=== PATIENT | male | born 1950 | race Caucasian/White ===

== ENCOUNTER 2021-01-17 13:05 | Inpatient (IN) ==
[2021-01-17 14:51] LABS: Basophils # (auto) 0.05 K/uL (0-0.2); Basophils % (auto) 0.5 %; Eosinophils # (auto) 0.11 K/uL (0-0.5); Eosinophils % (auto) 1.1 %; Hemoglobin 15.9 g/dL (14.0-18.0); Immature Granulocytes # (auto) 0.02 K/uL (0.00-0.02); Immature Granulocytes % (auto) 0.2 %; Lymphocytes # (auto) 2.12 K/uL (1.2-3.4); Lymphocytes % (auto) 20.7 %; Mean Corpuscular Hemoglobin 31.2 pg (25-34); Mean Corpuscular Hgb Conc 36.1 g/dL (32-36); Mean Corpuscular Volume 86.4 fL (80-100); Mean Platelet Volume 11.2 fL (7.4-10.4); Monocytes # (auto) 0.74 K/uL (0.11-0.59); Monocytes % (auto) 7.2 %; Neutrophils # (auto) 7.21 K/uL (1.4-6.5); Neutrophils % (auto) 70.3 %; Platelet Count 236 K/uL (130-400); RDW Coefficient of Variation 12.2 % (11.5-14.5); RDW Standard Deviation 38.9 fL (36.4-46.3); Red Blood Count 5.09 M/uL (4.7-6.1); White Blood Count 10.25 K/uL (4.8-10.8)
[2021-01-17 14:59] LABS: BUN Creatinine Ratio 19.7 (10-20); Blood Urea Nitrogen 21 mg/dl (7-18); Calcium 9.2 mg/dl (8.5-10.1); Carbon Dioxide 26 mmol/L (21-32); Chloride 105 mmol/L (98-107); Creatinine Clr Calc Pharmacy 82.3 ml/min; Est GFR (African American) 80.7; Est GFR (Non-African American) 69.7; Glucose 146 mg/dl (70-99); Potassium 4.3 mmol/L (3.5-5.1); Sodium 137 mmol/L (136-145)
--- NOTE | 2021-01-17 15:05 | XRay Report ---
XR pelvis 1-2V routine CLINICAL HISTORY: back pain hip pain COMPARISON STUDY: Left hip 04/29/2011. FINDINGS: No fracture or dislocation within the pelvis or hips. The visualized sacrum appears intact. There are bilateral total hip arthroplasties. The hardware is intact. No abnormal periprosthetic sayra ency. Small amount of heterotopic ossification surrounding the inferior aspect of the left hip. IMPRESSION: No fracture or dislocation within the pelvis or hips. ACT 112: Negative or not required by law. Electronically signed by: Kristopher Cohen M.D. 01/17/2021 3:04 PM
[2021-01-17 15:09] LABS: Partial Thromboplastin Ratio 0.9; Partial Thromboplastin Time 22.8 Seconds (21.0-31.0)
[2021-01-17] MEDS ORDERED: LORazepam 1 MG/2 ML VIAL IV STA (15:18)
[2021-01-17] MEDS ORDERED: HYDROmorphone INJ 0.5 MG/0.5 ML SYR IV STA (16:09)
--- NOTE | 2021-01-17 16:59 | Magnetic Resonance Report ---
LUMBAR SPINE MRI HISTORY: Bilateral lower extremity radiculopathy. Low back pain. Twisting injury. TECHNIQUE: Multiplanar multisequence MRI of the lumbar spine was performed without the use of contras t. COMPARISON: Lumbar spine MRI 10/21/2018. FINDINGS: For the purpose of the report the L5-S1 disc space will be located on axial image 27 of 30. Mild motion artifact. No fracture or subluxation within the lumbar spine. The conus terminates at the L2-L3 disc space level. There are severe disc space narrowing at L5-S1 which has slightly progressed . Stable 13 mm hemangioma at S1. Remaining disc spaces are preserved for age. Severe facet degenerati ve changes at L4-L5 and L3-L4. Mild facet degenerative changes seen throughout the remaining lumbar s pine. L1-L2: Small broad-based posterior disc bulge without significant central canal or neural foraminal n arrowing. L2-L3: Small broad-based posterior disc bulge without significant central canal or neural foraminal n arrowing. L3-L4: Broad-based posterior disc bulge with ligamentum and facet hypertrophy resulting in moderate c entral canal narrowing and mild to moderate bilateral neural foraminal narrowing. This has slightly p rogressed in the interval. L4-L5: Interval development of a large central disc extrusion measuring 16 x 11 x 11 mm. This complet umesh replaces the thecal sac and results in severe central canal narrowing with compression of the cau da equina at this level. Clinical correlation recommended to assess for a cauda equina syndrome. Ther e is mild to moderate bilateral neural foraminal narrowing. L5-S1: No significant central canal narrowing. There is moderate left and mild right neural foraminal narrowing. IMPRESSION: 1. Interval development of a large central disc extrusion at L4-L5 which completely replaces the thec al sac and results in severe central canal narrowing with compression of the cauda equina at this lev el. Clinical question recommended to assess for a cauda equina syndrome. Immediate surgical consultat ion recommended. 2. Additional degenerative changes as described above. 3. No fracture or subluxation within the lumbar spine. 4. Low-lying conus which terminates at the L2-L3 disc space level. ACT 112: Negative or not required by law. Electronically signed by: Kristopher Cohen M.D. 01/17/2021 4:57 PM
[2021-01-17] MEDS ORDERED: HYDROmorphone INJ 1 MG/ML SYRINGE IV STA ×2 (17:23→21:02)
--- NOTE | 2021-01-17 17:31 | Emergency Department Note ---
History of Present Illness General Chief Complaint: Leg Injury/Pain Stated Complaint: Leg Pain Time Seen by Provider: 01/17/21 14:06 History of Present Illness Provider Complaint: back pain Onset (ago): day(s) 5 Duration: progressively worsening Similar Symptoms Previously: No Location: lumbar spine Quality: + sharp, + crushing, + aching, + spasming and + throbbing Radiation: left leg and right leg Severity: severe Current Pain Intensity: 9 Relieved By: + immobilization Exacerbated By: + movement Context: + while lifting; no trauma and no IV drug use Associated symptoms: + numbness and + difficulty walking; no loss of sensation in lower extremities, no increased urinary urgency, no increased urinary frequency, no urinary incontinence, no fecal incontinence, no a change in bowel habits, no fever, no chills, no abdominal pain, no dysuria, no hematuria, no parasthesias and no myalgias Home Medications Medication Instructions Recorded Confirmed Type aspirin 81 mg tablet,delayed 81 mg PO DAILY 09/02/18 01/17/21 History release glucosamine 750 [id number] 1 tab PO BID 10/22/18 01/17/21 History no1 644 mg-C 30 mg-fabio 1 mg tablet ibuprofen 600 mg tablet 600 mg PO TID PRN 10/22/18 01/17/21 History atorvastatin 40 mg tablet 40 mg PO DAILY #90 tab 04/22/20 01/17/21 Rx allopurinol 300 mg tablet 300 mg PO DAILY #90 tab 07/26/20 01/17/21 Rx omeprazole 20 mg capsule,delayed 20 mg PO BID #180 cap 07/27/20 01/17/21 Rx release fluticasone propionate 50 2 spray INTNAS DAILY PRN ml 08/15/20 01/17/21 History mcg/actuation nasal spray,suspension levothyroxine 100 mcg tablet See Rx Instructions .ROUTE 10/14/20 01/17/21 Rx .COMPLEX #90 tab famotidine 40 mg tablet 40 mg PO HS #90 tab 11/15/20 01/17/21 Rx glimepiride 2 mg tablet 2 mg PO DAILY #30 tab 11/15/20 01/17/21 Rx naproxen sodium 220 mg tablet 220 mg PO BID tab 11/15/20 01/17/21 History metformin 1,000 mg tablet 1,000 mg PO BID #180 tab 01/10/21 01/17/21 Rx cetirizine 10 mg PO QAM 01/17/21 01/17/21 History gabapentin 300 mg PO AMPM 01/17/21 01/17/21 History Allergies Allergy/AdvReac Type Severity Reaction Status Date / Time Penicillins Allergy Intermediate HIGH Verified 01/17/21 14:18 FEVER, RASH (NOTED ALLERGIC TO "ANY-CILLIN" bee pollen Allergy Unknown Verified 01/17/21 14:18 Past Med/Surg History Medical History (Updated 01/17/21 @ 19:47 by Eddie Mauro) Allergic rhinitis Diabetes Dyslipidemia (high LDL; low HDL) GERD (gastroesophageal reflux disease) Gout Hx of testicular cancer Hypertension Hypothyroidism Lumbar disc disease Lumbar pain with radiation down both legs Osteoarthritis Spinal stenosis, lumbar region with neurogenic claudication Surgical History Hx of lumbosacral spine surgery Hx of total hip arthroplasty S/P orchiopexy 1975 Family History Father Lung cancer Cancer brain Mother Diabetes Uncle Prostate cancer Grandmother (Paternal) Stroke Family/Other Colorectal cancer Breast cancer Myocardial infarction Grandfather (Maternal) Rheumatoid arthritis Denies family history of Ovarian cancer Social History Smoking Status: Former smoker Age Quit Using Tobacco: 65; packs per day: 0.5; Years Smoked: 24; Hx Alcohol Use: Yes Alcohol Intake Frequency: Monthly or Less Hx Substance Use: No Preferred Language: Telugu Communication Ability: Effective Visual Impairment: No Limitations Hearing Ability: Normal Beliefs That Will Affect Care: None marital status: Current Living Situation: Spouse current occupational status: retired Feels Safe at Home: Yes Childhood Exposure to Second-Hand Smoke: No Diet Comment: eats what he wants to caffeine: Yes during the past year weight has: decreased > 10 lbs Dental Care, Regularly: No Physical Activity Frequency: Other Physical Activity Frequency Comment: house chores Seatbelt Use: never Sunscreen Use: No Review of Systems A total of 10 systems reviewed and were otherwise negative Physical Exam Vital Signs Vital Signs - 24 hr 01/17/21 13:12 01/17/21 13:13 01/17/21 13:15 Temperature 36.5 C Temperature Source Oral Pulse Rate 103 H 105 H 107 H Pulse Rate [Apical] 107 H Pulse Rate from SpO2 Sensor 103 H 105 H Respiratory Rate 14 24 20 Respiratory Effort / Characteristics Non-Labored Spontaneous Respiratory Depth Normal Respiratory Pattern Regular Blood Pressure 158/126 H 189/110 H Blood Pressure [Right Arm] 189/110 H Blood Pressure Mean 136 136 Blood Pressure Mean [Right Arm] 136 Pulse Oximetry 94 93 94 Oxygen Delivery Method Room Air Oxygen Flow Rate Sepsis Recent Fever Within 48 Hours No Sepsis New/Unexplained Change in Mental Status No Sepsis Action Taken by Nursing No Action Required 01/17/21 13:30 01/17/21 13:31 01/17/21 14:00 Temperature Temperature Source Pulse Rate 106 H 105 H 102 H Pulse Rate [Apical] Pulse Rate from SpO2 Sensor 110 H 105 H 102 H Respiratory Rate 16 20 19 Respiratory Effort / Characteristics Respiratory Depth Respiratory Pattern Blood Pressure 168/145 H 131/99 Blood Pressure [Right Arm] Blood Pressure Mean 152 109 Blood Pressure Mean [Right Arm] Pulse Oximetry 94 97 91 Oxygen Delivery Method Oxygen Flow Rate Sepsis Recent Fever Within 48 Hours Sepsis New/Unexplained Change in Mental Status Sepsis Action Taken by Nursing 01/17/21 14:01 01/17/21 14:30 01/17/21 14:31 Temperature Temperature Source Pulse Rate 103 H 103 H 102 H Pulse Rate [Apical] Pulse Rate from SpO2 Sensor 103 H 103 H 103 H Respiratory Rate 16 21 19 Respiratory Effort / Characteristics Respiratory Depth Respiratory Pattern Blood Pressure 138/62 Blood Pressure [Right Arm] Blood Pressure Mean 87 Blood Pressure Mean [Right Arm] Pulse Oximetry 92 94 92 Oxygen Delivery Method Oxygen Flow Rate Sepsis Recent Fever Within 48 Hours Sepsis New/Unexplained Change in Mental Status Sepsis Action Taken by Nursing 01/17/21 15:00 01/17/21 15:01 01/17/21 15:02 Temperature Temperature Source Pulse Rate 105 H 104 H 104 H Pulse Rate [Apical] Pulse Rate from SpO2 Sensor 103 H 105 H 104 H Respiratory Rate 15 13 17 Respiratory Effort / Characteristics Respiratory Depth Respiratory Pattern Blood Pressure 151/95 H 151/95 H Blood Pressure [Right Arm] Blood Pressure Mean 113 113 Blood Pressure Mean [Right Arm] Pulse Oximetry 95 100 98 Oxygen Delivery Method Nasal Cannula Nasal Cannula Oxygen Flow Rate 2 2 Sepsis Recent Fever Within 48 Hours Sepsis New/Unexplained Change in Mental Status Sepsis Action Taken by Nursing 01/17/21 16:55 01/17/21 16:56 01/17/21 17:00 Temperature Temperature Source Pulse Rate Pulse Rate [Apical] Pulse Rate from SpO2 Sensor 121 H 120 H Respiratory Rate Respiratory Effort / Characteristics Respiratory Depth Respiratory Pattern Blood Pressure 125/88 145/101 H Blood Pressure [Right Arm] Blood Pressure Mean 100 115 Blood Pressure Mean [Right Arm] Pulse Oximetry 93 94 Oxygen Delivery Method Oxygen Flow Rate Sepsis Recent Fever Within 48 Hours Sepsis New/Unexplained Change in Mental Status Sepsis Action Taken by Nursing 01/17/21 17:01 01/17/21 17:06 01/17/21 17:30 Temperature Temperature Source Pulse Rate 119 H 115 H Pulse Rate [Apical] 116 H Pulse Rate from SpO2 Sensor 119 H 114 H Respiratory Rate 20 20 21 Respiratory Effort / Characteristics Respiratory Depth Respiratory Pattern Blood Pressure 160/99 H Blood Pressure [Right Arm] 125/88 Blood Pressure Mean 119 Blood Pressure Mean [Right Arm] 100 Pulse Oximetry 94 92 93 Oxygen Delivery Method Room Air Nasal Cannula Oxygen Flow Rate 2 Sepsis Recent Fever Within 48 Hours Sepsis New/Unexplained Change in Mental Status Sepsis Action Taken by Nursing 01/17/21 17:31 01/17/21 18:00 01/17/21 18:01 Temperature Temperature Source Pulse Rate 113 H 112 H 113 H Pulse Rate [Apical] Pulse Rate from SpO2 Sensor 114 H 115 H 113 H Respiratory Rate 14 20 24 Respiratory Effort / Characteristics Respiratory Depth Respiratory Pattern Blood Pressure 150/102 H Blood Pressure [Right Arm] Blood Pressure Mean 118 Blood Pressure Mean [Right Arm] Pulse Oximetry 92 95 93 Oxygen Delivery Method Nasal Cannula Nasal Cannula Nasal Cannula Oxygen Flow Rate 2 2 2 Sepsis Recent Fever Within 48 Hours Sepsis New/Unexplained Change in Mental Status Sepsis Action Taken by Nursing 01/17/21 18:30 01/17/21 18:31 Temperature Temperature Source Pulse Rate 115 H 116 H Pulse Rate [Apical] Pulse Rate from SpO2 Sensor Respiratory Rate 17 21 Respiratory Effort / Characteristics Respiratory Depth Respiratory Pattern Blood Pressure 164/108 H Blood Pressure [Right Arm] Blood Pressure Mean 126 Blood Pressure Mean [Right Arm] Pulse Oximetry 93 Oxygen Delivery Method Oxygen Flow Rate Sepsis Recent Fever Within 48 Hours Sepsis New/Unexplained Change in Mental Status Sepsis Action Taken by Nursing Physical Exam HENT: Exam performed. - Head: Normocephalic and atraumatic. - Right Ear: External ear normal. No mastoid tenderness. - Left Ear: External ear normal. No mastoid tenderness. - Mouth/Throat: The oropharynx is clear and moist. No trismus in the jaw. No dental abscesses or uvula swelling. No oropharyngeal exudate or tonsillar abscesses. EYES: Conjunctivae and EOM are normal. Pupils are equal, round, and reactive to light. Right eye exhibits no discharge. Left eye exhibits no discharge. No scleral icterus. NECK: Normal range of motion. Neck supple. No JVD present. No spinous process tenderness present. No carotid bruit present. No rigidity. No tracheal deviation and normal range of motion present. No Brudzinski's sign and no Kernig's sign noted. CV: Normal rate, regular rhythm, normal heart sounds and intact distal pulses. There is no peripheral edema. Palpable radial pulses bue. PULM/CHEST: Effort normal and breath sounds normal. No respiratory distress. No stridor. He has no wheezes. He has no rales. - Chest Wall: He exhibits no tenderness. ABD: The abdomen is soft. Bowel sounds are normal. He has no distension. No mass is present. There is no tenderness. There is no rebound, no guarding, no Bernard's sign and no tenderness at McBurney's point. Rovsig negative. MUSC/SKEL: Normal range of motion. There is no peripheral edema, tenderness or deformity. LYMPH: No cervical adenopathy. NEURO: He is alert and oriented to person, place, and time. No cranial nerve deficit deficit.GCS eye subscore is 4. GCS verbal subscore is 5. GCS motor subscore is 6. Mild left-sided saddle paresthesias. SKIN: Skin is warm and dry. He is not diaphoretic. PSYCH: He has a normal mood and affect. Behavior is normal. Judgment and thought content normal. Course Course 1406: The patient was evaluated in room B9. A complete history and physical exam was performed Cardiac monitoring: An order was placed for continuous cardiac monitoring. The monitor shows a rate of 110 with sinus tachycardia rhythm EMR reviewed. Patient had an MRI of the lumbar spine done in September 2018 which showed moderate to severe spinal canal stenosis at L4-L5 with findings suggestive cauda equina impingement. Patient states he did not have any surgery done in 2019 on his back. Patient states his last back surgery was done in 2001 in [place]. We will obtain MRI of the spine given his difficulty walking and the mild left-sided saddle paresthesias. 1730: MRI showed interval development of a large central disc extrusion at L4-L5 which completely replaces the thecal sac resulting in canal narrowing and compression of the cauda equina. Dr. Tomeka patel. Nursing reported that the patient was incontinent of urine on his way back from MRI. Patient did have good rectal tone. 173: Dr. Eckert states he will be here to see the patient and states he is calling the OR to get it ready. COVID swab sent patient states he hasnt eaten since 0800. 181: Dr. Eckert at bedside examining the patient. He states he will admit the patient. Administered Medications Discontinued Medications Diazepam (Diazepam 5 Mg/Ml Inj 10ml Vial) 5 mg IV NOW STA Stop: 01/17/21 14:19 Last Admin: 01/17/21 14:32 Dose: 5 mg Documented by: [id number] Hydromorphone HCl (Hydromorphone Inj 0.5 Mg/0.5 Ml Syr) 0.5 mg IV NOW STA Stop: 01/17/21 16:10 Last Admin: 01/17/21 16:18 Dose: 0.5 mg Documented by: [id number] Hydromorphone HCl (Hydromorphone Inj 1 Mg/Ml Syringe) 1 mg IV NOW STA Stop: 01/17/21 17:24 Last Admin: 01/17/21 17:34 Dose: 1 mg Documented by: [id number] Lorazepam (Ativan) 1 mg in 2 mls @ 2 mls/min IV NOW STA Stop: 01/17/21 15:19 Last Admin: 01/17/21 15:26 Dose: 2 mls/min Documented by: [id number] Ondansetron HCl (Ondansetron Inj 2 Mg/Ml 2 Ml Vial) 4 mg IV NOW STA Stop: 01/17/21 18:16 Last Admin: 01/17/21 18:16 Dose: 4 mg Documented by: [id number] Medical Decision Making Laboratory Data Result diagrams: 01/17/21 14:28 01/17/21 14:28 Lab Results 01/17/21 01/17/21 01/17/21 Range/Units 14:28 14:28 14:28 WBC 10.25 (4.8-10.8) K/uL RBC 5.09 (4.7-6.1) M/uL Hgb 15.9 (14.0-18.0) g/dL Hct 44.0 (42-52) % MCV 86.4 (80-100) fL MCH 31.2 (25-34) pg MCHC 36.1 H (32-36) g/dL RDW Std Deviation 38.9 (36.4-46.3) fL RDW Coeff of Radha 12.2 (11.5-14.5) % Plt Count 236 (130-400) K/uL MPV 11.2 H (7.4-10.4) fL Immature Gran % (Auto) 0.2 % Neut % (Auto) 70.3 % Lymph % (Auto) 20.7 % [place] % (Auto) 7.2 % Eos % (Auto) 1.1 % Baso % (Auto) 0.5 % Neut # (Auto) 7.21 H (1.4-6.5) K/uL Lymph # (Auto) 2.12 (1.2-3.4) K/uL [place] # (Auto) 0.74 H (0.11-0.59) K/uL Eos # (Auto) 0.11 (0-0.5) K/uL Baso # (Auto) 0.05 (0-0.2) K/uL Immature Gran # (Auto) 0.02 (0.00-0.02) K/uL PT 10.0 (9.0-12.0) Seconds INR 1.0 (0.9-1.1) APTT 22.8 (21.0-31.0) Seconds PTT Ratio 0.9 Sodium 137 (136-145) mmol/L Potassium 4.3 (3.5-5.1) mmol/L Chloride 105 (98-107) mmol/L Carbon Dioxide 26 (21-32) mmol/L Anion Gap 7.0 (3-11) BUN 21 H (7-18) mg/dl Creatinine 1.08 (0.6-1.4) mg/dl Est Cr Clr Drug Dosing 82.3 ml/min Est GFR ( Amer) 80.7 Est GFR (Non-Af Amer) 69.7 BUN/Creatinine Ratio 19.7 (10-20) Glucose 146 H (70-99) mg/dl Calcium 9.2 (8.5-10.1) mg/dl COVID-19 Eval Order SARS-CoV-2 (PCR) (Negative) Influenza Type A (PCR) (Neg) Influenza Type B (PCR) (Neg) RSV (RT-PCR) (Neg) 01/17/21 01/17/21 Range/Units 17:22 17:22 WBC (4.8-10.8) K/uL RBC (4.7-6.1) M/uL Hgb (14.0-18.0) g/dL Hct (42-52) % MCV (80-100) fL MCH (25-34) pg MCHC (32-36) g/dL RDW Std Deviation (36.4-46.3) fL RDW Coeff of Radha (11.5-14.5) % Plt Count (130-400) K/uL MPV (7.4-10.4) fL Immature Gran % (Auto) % Neut % (Auto) % Lymph % (Auto) % [place] % (Auto) % Eos % (Auto) % Baso % (Auto) % Neut # (Auto) (1.4-6.5) K/uL Lymph # (Auto) (1.2-3.4) K/uL [place] # (Auto) (0.11-0.59) K/uL Eos # (Auto) (0-0.5) K/uL Baso # (Auto) (0-0.2) K/uL Immature Gran # (Auto) (0.00-0.02) K/uL PT (9.0-12.0) Seconds INR (0.9-1.1) APTT (21.0-31.0) Seconds PTT Ratio Sodium (136-145) mmol/L Potassium (3.5-5.1) mmol/L Chloride (98-107) mmol/L Carbon Dioxide (21-32) mmol/L Anion Gap (3-11) BUN (7-18) mg/dl Creatinine (0.6-1.4) mg/dl Est Cr Clr Drug Dosing ml/min Est GFR ( Amer) Est GFR (Non-Af Amer) BUN/Creatinine Ratio (10-20) Glucose (70-99) mg/dl Calcium (8.5-10.1) mg/dl COVID-19 Eval Order CovFluRsv at [facility] SARS-CoV-2 (PCR) NEGATIVE (Negative) Influenza Type A (PCR) Negative (Neg) Influenza Type B (PCR) Negative (Neg) RSV (RT-PCR) Negative (Neg) Imaging Data Radiologist's Impression: Lumbar Spine MRI 01/17/21 14:22 LUMBAR SPINE MRI HISTORY: Bilateral lower extremity radiculopathy. Low back pain. Twisting injury. TECHNIQUE: Multiplanar multisequence MRI of the lumbar spine was performed without the use of contrast. COMPARISON: Lumbar spine MRI 10/21/2018. FINDINGS: For the purpose of the report the L5-S1 disc space will be located on axial image of 30. Mild motion artifact. No fracture or subluxation within the lumbar spine. The conus terminates at the L2-L3 disc space level. There are severe disc space narrowing at L5-S1 which has slightly progressed. Stable 13 mm hemangioma at S1. Remaining disc spaces are preserved for age. Severe facet degenerative changes at L4-L5 and L3-L4. Mild facet degenerative changes seen throughout the remaining lumbar spine. L1-L2: Small broad-based posterior disc bulge without significant central canal or neural foraminal narrowing. L2-L3: Small broad-based posterior disc bulge without significant central canal or neural foraminal narrowing. L3-L4: Broad-based posterior disc bulge with ligamentum and facet hypertrophy resulting in moderate central canal narrowing and mild to moderate bilateral neural foraminal narrowing. This has slightly progressed in the interval. L4-L5: Interval development of a large central disc extrusion measuring 16 x 11 x 11 mm. This completely replaces the thecal sac and results in severe central canal narrowing with compression of the cauda equina at this level. Clinical correlation recommended to assess for a cauda equina syndrome. There is mild to moderate bilateral neural foraminal narrowing. L5-S1: No significant central canal narrowing. There is moderate left and mild right neural foraminal narrowing. IMPRESSION: 1. Interval development of a large central disc extrusion at L4-L5 which completely replaces the thecal sac and results in severe central canal narrowing with compression of the cauda equina at this level. Clinical question recommended to assess for a cauda equina syndrome. Immediate surgical consultation recommended. 2. Additional degenerative changes as described above. 3. No fracture or subluxation within the lumbar spine. 4. Low-lying conus which terminates at the L2-L3 disc space level. ACT 112: Negative or not required by law. Electronically signed by: Kristopher Cohen M.D. 01/17/2021 4:57 PM Pelvis X-Ray 01/17/21 14:22 XR pelvis 1-2V routine CLINICAL HISTORY: back pain hip pain COMPARISON STUDY: Left hip 04/29/2011. FINDINGS: No fracture or dislocation within the pelvis or hips. The visualized sacrum appears intact. There are bilateral total hip arthroplasties. The hardware is intact. No abnormal periprosthetic lucency. Small amount of heterotopic ossification surrounding the inferior aspect of the left hip. IMPRESSION: No fracture or dislocation within the pelvis or hips. ACT 112: Negative or not required by law. Electronically signed by: Kristopher Cohen M.D. 01/17/2021 3:04 PM ECG Data Indication: other (pre-op) Rate (beats per minute): 115 Rhythm: sinus tachycardia Findings: no ST depression, no ST elevation and no prolonged QT MDM Narrative 1406: The patient was evaluated in room B9. A complete history and physical exam was performed Cardiac monitoring: An order was placed for continuous cardiac monitoring. The monitor shows a rate of 110 with sinus tachycardia rhythm EMR reviewed. Patient had an MRI of the lumbar spine done in September 2018 which showed moderate to severe spinal canal stenosis at L4-L5 with findings sugge stive cauda equina impingement. Patient states he did not have any surgery done in 2019 on his back. Patient states his last back surgery was done in 2001 in [place]. We will obtain MRI of the spine given his difficulty walking and the mild left-sided saddle paresthesias. 1730: MRI showed interval development of a large central disc extrusion at L4-L5 which completely replaces the thecal sac resulting in canal narrowing and compression of the cauda equina. Dr. Tomeka patel. Nursing reported that the patient was incontinent of urine on his way back from MRI. Patient did have good rectal tone. 1738: Dr. Eckert states he will be here to see the patient and states he is calling the OR to get it ready. COVID swab sent patient states he hasnt eaten since 0800. 181: Dr. Eckert at bedside examining the patient. He states he will admit the patient. Impression & Plan Cauda equina syndrome Critical Care Time Critical Care Time: Yes Total Critical Care Time: 69 I have personally spent greater than 69 minutes of critical care time in the direct management of this patient. This includes bedside care, interpretation of diagnostic studies, and testing, discussion with consultants, patient, and family members, and other required patient management activities. This 69 minutes is in excess of all separately billable procedures. Discharge Plan Visit Data Chief Complaint: Leg Injury/Pain Stated Complaint: Leg Pain ED Provider: Eddie Mauro Discharge Problem: Cauda equina syndrome Patient Disposition: Admitted As Inpatient Forms Stand Alone Forms: My [facility] Prescriptions Prescriptions: No Action aspirin [Adult Aspirin Regimen] 81 mg tablet,delayed release (DR/EC) 81 mg PO DAILY RF: 0 ibuprofen 600 mg tablet 600 mg PO TID PRN (Reason: pain) RF: 0 [id number] [Osteo Bi-Flex Triple Strength] 750 mg-644 mg- 30 mg-1 mg tablet 1 tab PO BID RF: 0 naproxen sodium [Aleve] 220 mg tablet 220 mg PO BID RF: 0 atorvastatin 40 mg tablet 40 mg PO DAILY Qty: 90 RF: 2 allopurinol 300 mg tablet 300 mg PO DAILY Qty: 90 RF: 3 omeprazole 20 mg capsule,delayed release(DR/EC) 20 mg PO BID Qty: 180 RF: 1 levothyroxine 100 mcg tablet See Rx Instructions .ROUTE .COMPLEX Qty: 90 RF: 1 metformin 1,000 mg tablet 1,000 mg PO BID Qty: 180 RF: 1 fluticasone propionate [Flonase Allergy Relief] 50 mcg/actuation spray,suspension 2 spray INTNAS DAILY PRN (Reason: Allergy Symptoms) RF: 0 glimepiride 2 mg tablet 2 mg PO DAILY Qty: 30 RF: 2 famotidine 40 mg tablet 40 mg PO HS Qty: 90 RF: 1 cetirizine 10 mg tablet 10 mg PO QAM RF: 0 gabapentin 300 mg capsule 300 mg PO AMPM RF: 0 Referrals Referrals: Liz Kirby DO [Primary Care Provider] -
[2021-01-17] MEDS ORDERED: fentaNYL citrate 100 MCG/2 ML VIAL IV PRN (17:58)
[2021-01-17] MEDS ORDERED: ePHEDrine sulfate 50 MG/ML AMP IV PRN (17:58)
[2021-01-17] MEDS ORDERED: HYDROmorphone INJ 1 MG/ML SYRINGE IV PRN (17:58)
[2021-01-17] MEDS ORDERED: BUPIVACAINE/EPINEPHRINE 0.5% MPF 1:200,000 30 ML VIAL ONE (17:58)
[2021-01-17] MEDS ORDERED: ATROPINE SULFATE 0.1 MG/ML 10ML SYR IV PRN (17:58)
[2021-01-17] MEDS ORDERED: ONDANSETRON INJ 2 MG/ML 2 ML VIAL IV PRN (17:58)
[2021-01-17] MEDS ORDERED: MIDAZOLAM HCL 1 MG/ML 2ML VIAL ONE (17:59)
[2021-01-17] MEDS ORDERED: LIDOCAINE HCL 2% 2 ML VIAL/AMP(20MG/ML) INFIL ONE (17:59)
[2021-01-17] MEDS ORDERED: fentaNYL citrate 100 MCG/2 ML VIAL ONE (17:59)
[2021-01-17] MEDS ORDERED: PROPOFOL IV EMULSION 10 MG/ML 20 ML VIAL IV ONE (17:59)
[2021-01-17] MEDS ORDERED: ONDANSETRON INJ 2 MG/ML 2 ML VIAL ONE (17:59)
[2021-01-17] MEDS ORDERED: ROCURONIUM BROMIDE 10 MG/ML 5 ML VIAL IV ONE (17:59)
[2021-01-17] MEDS ORDERED: ONDANSETRON INJ 2 MG/ML 2 ML VIAL IV STA (18:15)
--- NOTE | 2021-01-17 18:29 | Anesthesiology Consultation ---
Date of Service January 17, 2021 Assessment & Plan Chart Review Chart Review: Acceptable Risk for Surgery Consults Requested none Proposed Anesthesia Risk / Benefits Reviewed With: PT / POA / Parent / Guardian, Accepts Plan and Informed Consent Obtained History Surgery Operation Date: 01/17/21 18:30 Proposed Procedures p L4-L5 Decompression, Possible Fusion(Not Applicable) - Young Eckert DO Height/Weight Height: 6 ft 1 in Weight: 105.4 kg Allergies Allergy/AdvReac Type Severity Reaction Status Date / Time Penicillins Allergy Intermediate HIGH Verified 01/17/21 14:18 FEVER, RASH (NOTED ALLERGIC TO "ANY-CILLIN" bee pollen Allergy Unknown Verified 01/17/21 14:18 Medications Home Medications Medication Instructions Recorded Confirmed Last Taken aspirin 81 mg tablet,delayed 81 mg PO DAILY 09/02/18 01/17/21 Unknown release glucosamine 750 om-[id number]-apx 1 tab PO BID 10/22/18 01/17/21 Unknown no1 644 mg-C 30 mg-fabio 1 mg tablet ibuprofen 600 mg tablet 600 mg PO TID PRN 10/22/18 01/17/21 Unknown atorvastatin 40 mg tablet 40 mg PO DAILY #90 tab 04/22/20 01/17/21 Unknown allopurinol 300 mg tablet 300 mg PO DAILY #90 tab 07/26/20 01/17/21 Unknown omeprazole 20 mg capsule,delayed 20 mg PO BID #180 cap 07/27/20 01/17/21 Unknown release fluticasone propionate 50 2 spray INTNAS DAILY PRN ml 08/15/20 01/17/21 Unknown mcg/actuation nasal spray,suspension levothyroxine 100 mcg tablet See Rx Instructions .ROUTE 10/14/20 01/17/21 Unknown .COMPLEX #90 tab famotidine 40 mg tablet 40 mg PO HS #90 tab 11/15/20 01/17/21 Unknown glimepiride 2 mg tablet 2 mg PO DAILY #30 tab 11/15/20 01/17/21 Unknown naproxen sodium 220 mg tablet 220 mg PO BID tab 11/15/20 01/17/21 Unknown metformin 1,000 mg tablet 1,000 mg PO BID #180 tab 01/10/21 01/17/21 Unknown cetirizine 10 mg PO QAM 01/17/21 01/17/21 Unknown gabapentin 300 mg PO AMPM 01/17/21 01/17/21 Unknown Past Medical History Medical History (Updated 01/17/21 @ 18:28 by Young Eckert DO) Allergic rhinitis Diabetes Dyslipidemia (high LDL; low HDL) GERD (gastroesophageal reflux disease) Gout Hx of testicular cancer Hypertension Hypothyroidism Lumbar disc disease Lumbar pain with radiation down both legs Osteoarthritis Spinal stenosis, lumbar region with neurogenic claudication Exercise / Class Metabolic Activity II 4-5 Yardwork/Stairs/Walk up hill Past Family History Family History Father Lung cancer Cancer brain Mother Diabetes Uncle Prostate cancer Grandmother (Paternal) Stroke Family/Other Colorectal cancer Breast cancer Myocardial infarction Grandfather (Maternal) Rheumatoid arthritis Denies family history of Ovarian cancer Past Surgical History Surgical History Hx of lumbosacral spine surgery Hx of total hip arthroplasty S/P orchiopexy 1975 Past Anesthesia History No Hx of Anesthesia Complications and No Family Hx of Anesthesia Complications History of PONV No Hx of PONV and No Hx of Motion Sickness Social History Smoking Status: Former smoker tobacco type: cigarettes Hx Alcohol Use: Yes alcohol intake frequency: holidays/special occasions only Hx Substance Use: No Physical Exam Vital Signs Last Vital Signs Temp 97.7 F 01/17/21 13:15 Pulse 113 H 01/17/21 18:01 Resp 24 01/17/21 18:01 BP 150/102 H 01/17/21 18:00 Pulse Ox 93 01/17/21 18:01 ENMT Mouth: + dentures (Upper full) Thyromental Distance: > or= 3.5 Finger Breadths Mallampati Class: II Neck normal visual inspection Respiratory normal respiratory effort Auscultation: lungs clear to auscultation bilaterally Cardiovascular Rate/Rhythm: regular rhythm and + tachycardic Testing Laboratory Results 01/17/21 14:28 01/17/21 14: PT 10.0 Seconds (9.0-12.0) 01/17/21 14: INR 1.0 (0.9-1.1) 01/17/21 14:28 APTT 22.8 Seconds (21.0-31.0) 01/17/21 14:28 Electrocardiogram Date: 01/17/21 ST @ 115bpm Cannot rule out anterior infarct
--- NOTE | 2021-01-17 18:30 | History & Physical Report ---
Date of Service January 17, 2021 Assessment & Plan (1) Lumbar disc herniation with radiculopathy: Admission and Anticipated Discharge Date Admission Date: MRI lumbar spine available for review performed today demonstrates massive disc herniation L4-L5 with severe spinal stenosis and compression of the cauda equina. At this time I had a long discussion with the patient and his . He is currently neurologically intact but at significant risk of further decline. He is unable to stand and ambulate secondary to leg pain. At this point I am going to admit to the hospital-have him examined by medicine and anesthesiology and plan for urgent decompression possible fusion L4-L5 in the a.m. Risk benefits pros cons and alternatives were outlined in detail. At this time we will be made n.p.o. after midnight. History of Present Illness Chief Complaint: Back with bilateral leg pain Primary Care Provider: Liz iKrby DO This is a very pleasant 70-year-old male who presents to emergency room this afternoon with decline in status marked limitation with ability to ambulate. He states this began last . He denies any specific trauma fall or event. He has had progressive decline over the past several days. He is unable to stand and ambulate without severe pain down his legs. He describes a component of numbness in the lower extremities. He denies any loss of bowel or bladder control. He denies any perineal numbness. Allergies Allergy/AdvReac Type Severity Reaction Status Date / Time Penicillins Allergy Intermediate HIGH Verified 01/17/21 14:18 FEVER, RASH (NOTED ALLERGIC TO "ANY-CILLIN" bee pollen Allergy Unknown Verified 01/17/21 14:18 Home Medications Medication Instructions Recorded Confirmed Type aspirin 81 mg tablet,delayed 81 mg PO DAILY 09/02/18 01/17/21 History release glucosamine 750 eu-[id number] 1 tab PO BID 10/22/18 01/17/21 History no1 644 mg-C 30 mg-fabio 1 mg tablet ibuprofen 600 mg tablet 600 mg PO TID PRN 10/22/18 01/17/21 History atorvastatin 40 mg tablet 40 mg PO DAILY #90 tab 04/22/20 01/17/21 Rx allopurinol 300 mg tablet 300 mg PO DAILY #90 tab 07/26/20 01/17/21 Rx omeprazole 20 mg capsule,delayed 20 mg PO BID #180 cap 07/27/20 01/17/21 Rx release fluticasone propionate 50 2 spray INTNAS DAILY PRN ml 08/15/20 01/17/21 History mcg/actuation nasal spray,suspension levothyroxine 100 mcg tablet See Rx Instructions .ROUTE 10/14/20 01/17/21 Rx .COMPLEX #90 tab famotidine 40 mg tablet 40 mg PO HS #90 tab 11/15/20 01/17/21 Rx glimepiride 2 mg tablet 2 mg PO DAILY #30 tab 11/15/20 01/17/21 Rx naproxen sodium 220 mg tablet 220 mg PO BID tab 11/15/20 01/17/21 History metformin 1,000 mg tablet 1,000 mg PO BID #180 tab 01/10/21 01/17/21 Rx cetirizine 10 mg PO QAM 01/17/21 01/17/21 History gabapentin 300 mg PO AMPM 01/17/21 01/17/21 History Past Med/Surg History Medical History (Updated 01/17/21 @ 18:28 by Young Eckert DO) Allergic rhinitis Diabetes Dyslipidemia (high LDL; low HDL) GERD (gastroesophageal reflux disease) Gout Hx of testicular cancer Hypertension Hypothyroidism Lumbar disc disease Lumbar pain with radiation down both legs Osteoarthritis Spinal stenosis, lumbar region with neurogenic claudication Surgical History Hx of lumbosacral spine surgery Hx of total hip arthroplasty S/P orchiopexy 1975 Family History Father Lung cancer Cancer brain Mother Diabetes Uncle Prostate cancer Grandmother (Paternal) Stroke Family/Other Colorectal cancer Breast cancer Myocardial infarction Grandfather (Maternal) Rheumatoid arthritis Denies family history of Ovarian cancer Social History Smoking Status: Former smoker Age Quit Using Tobacco: 65; packs per day: 0.5; Years Smoked: 24; Hx Alcohol Use: Yes Alcohol Intake Frequency: Monthly or Less Hx Substance Use: No Preferred Language: Micronesian Communication Ability: Effective Visual Impairment: No Limitations Hearing Ability: Normal Beliefs That Will Affect Care: None marital status: Current Living Situation: Spouse current occupational status: retired Feels Safe at Home: Yes Childhood Exposure to Second-Hand Smoke: No Diet Comment: eats what he wants to caffeine: Yes during the past year weight has: decreased > 10 lbs Dental Care, Regularly: No Physical Activity Frequency: Other Physical Activity Frequency Comment: house chores Seatbelt Use: never Sunscreen Use: No Physical Exam Physical Exam: On exam he is lying supine. He is cooperative. He exhibits marked tension signs with even modest straight leg raising bilaterally. He does Exhibit 4+/5 bilateral extensor hallucis longus and dorsiflexion but has breakaway weakness secondary to pain. Plantar flexion is a 4 5 bilaterally. Quadriceps is a 4+/5 bilaterally. Sensory is intact in the perineal area but he did note some numbness below the knees bilaterally. Results & Data ([facility]) Vital Signs (Past 12 Hours) Vital Signs Temp Pulse Pulse Resp BP BP Pulse Ox 01/17/21 18:01 113 H 24 93 01/17/21 18:00 112 H 20 150/102 H 95 01/17/21 17:31 113 H 14 92 01/17/21 17:30 115 H 21 160/99 H 93 01/17/21 17:06 116 H 20 125/88 92 01/17/21 17:01 119 H 20 94 01/17/21 17:00 145/101 H 94 01/17/21 16:56 125/88 01/17/21 16:55 93 01/17/21 15:02 104 H 17 151/95 H 98 01/17/21 15:01 104 H 13 151/95 H 100 01/17/21 15:00 105 H 15 95 01/17/21 14:31 102 H 19 92 01/17/21 14:30 103 H 21 138/62 94 01/17/21 14:01 103 H 16 92 01/17/21 14:00 102 H 19 131/99 91 01/17/21 13:31 105 H 20 97 01/17/21 13:30 106 H 16 168/145 H 94 01/17/21 13:15 36.5 C 107 H 107 H 20 189/110 H 189/110 H 94 01/17/21 13:13 105 H 24 93 01/17/21 13:12 103 H 14 158/126 H 94
[2021-01-17 18:39] LABS: Influenza A virus by PCR Negative (Neg); Influenza B virus by PCR Negative (Neg); RSV by PCR Negative (Neg); SARS CoV2 RNA(COVID-19) InHosp NEGATIVE (Negative)
[2021-01-17] MEDS ORDERED: METOPROLOL TARTRATE 1 MG/ML VIAL IV STA (20:52)
[2021-01-17] MEDS ORDERED: dexAMETHasone 10 MG in SYRINGE 0 ML IV STA (21:57)
--- NOTE | 2021-01-17 21:59 | History & Physical Report ---
Date of Service January 17, 2021 Assessment & Plan Admission and Anticipated Discharge Date Admission Date: 70 yo M w/ pMHx. of HTN, HLD, OA, gout, DM, reflux and testicular cancer presents with 6 days of progressively worsening leg pain and numbness Leg pain, with lumbar disc herniation and concern for cauda equina on MRI L spine 6 days of progressive symptoms patient evaluated by Dr. Eckert and recommendation to optimize for surgery tomorrow - Started Decadron 10 mg IV once followed by Decadron 6 mg IV Q6H for 3 doses - pain control with Dilaudid Sinus tachycardia likely 2/2 pain EKG with lateral flattening - ordered troponin - put in for a one time dose of Lopressor 2.5 mg IV - continue to monitor on a telemetry floor - ordered AM EKG Constipation LBM 12 days prior - ordered Miralax PRN Reflux - continue Famotidine and Omeprazole DM - holding Metformin - consulting pharmacy given patient will be on Decadron Code: full Diet: NPO after midnight DVT: holding given plan for surgery History of Present Illness Chief Complaint: leg pain Primary Care Provider: DO Frederic Heaton Bashir is here with his for leg pain. The pain is bilateral and started on (01/12). The Saturday (01/08) prior to this he was moving gravel but no other event, trauma or acute injury to the area. The pain initially was 9-10/10 but intermittent. The pain was worse with movement and has become more constant and without movement. He called the ambulance when the pain became intolerable and developed lower leg numbness at that time. he urinated last around noon, but nursing mentioned that he was incontinent of urine after coming back from the MRI. He appeared confused and sleepy while I was talking with him. He has not had a bowel movement for 12 days, he notes that he has had constipation in the past but never to this extent. He has not had any chest pain today but did note that he had a moment where he had a sharp pain in his chest over the weekend that immediately resolved and was not associated with any shortness of breath, leg edema, or palpitations. Allergies Allergy/AdvReac Type Severity Reaction Status Date / Time Penicillins Allergy Intermediate HIGH Verified 01/17/21 14:18 FEVER, RASH (NOTED ALLERGIC TO "ANY-CILLIN" bee pollen Allergy Unknown Verified 01/17/21 14:18 Home Medications Medication Instructions Recorded Confirmed Type aspirin 81 mg tablet,delayed 81 mg PO DAILY 09/02/18 01/17/21 History release glucosamine 750 ld-vrbsbemnmrg-hca 1 tab PO BID 10/22/18 01/17/21 History no1 644 mg-C 30 mg-fabio 1 mg tablet ibuprofen 600 mg tablet 600 mg PO TID PRN 10/22/18 01/17/21 History atorvastatin 40 mg tablet 40 mg PO DAILY #90 tab 04/22/20 01/17/21 Rx allopurinol 300 mg tablet 300 mg PO DAILY #90 tab 07/26/20 01/17/21 Rx omeprazole 20 mg capsule,delayed 20 mg PO BID #180 cap 07/27/20 01/17/21 Rx release fluticasone propionate 50 2 spray INTNAS DAILY PRN ml 08/15/20 01/17/21 History mcg/actuation nasal spray,suspension levothyroxine 100 mcg tablet See Rx Instructions .ROUTE 10/14/20 01/17/21 Rx .COMPLEX #90 tab famotidine 40 mg tablet 40 mg PO HS #90 tab 11/15/20 01/17/21 Rx glimepiride 2 mg tablet 2 mg PO DAILY #30 tab 11/15/20 01/17/21 Rx naproxen sodium 220 mg tablet 220 mg PO BID tab 11/15/20 01/17/21 History metformin 1,000 mg tablet 1,000 mg PO BID #180 tab 01/10/21 01/17/21 Rx cetirizine 10 mg PO QAM 01/17/21 01/17/21 History gabapentin 300 mg capsule 300 mg PO AMPM #120 cap 01/18/21 Rx Past Med/Surg History Medical History (Updated 01/18/21 @ 22:29 by Flakito Regan DO) Allergic rhinitis Diabetes Dyslipidemia (high LDL; low HDL) GERD (gastroesophageal reflux disease) Gout Hx of testicular cancer Hypertension Hypothyroidism Lumbar disc disease Lumbar pain with radiation down both legs Osteoarthritis Spinal stenosis, lumbar region with neurogenic claudication Surgical History Hx of lumbosacral spine surgery Hx of total hip arthroplasty S/P orchiopexy 1975 Family History Father Lung cancer Cancer brain Mother Diabetes Uncle Prostate cancer Grandmother (Paternal) Stroke Family/Other Colorectal cancer Breast cancer Myocardial infarction Grandfather (Maternal) Rheumatoid arthritis Denies family history of Ovarian cancer Social History Smoking Status: Former smoker Age Quit Using Tobacco: 65; packs per day: 0.5; Years Smoked: 24; Second Hand Exposure: No; Do You Dip or Chew Tobacco: No; Tobacco Cessation Education Requested by Patient: No Hx Alcohol Use: Yes Alcohol Intake Frequency: Monthly or Less Hx Substance Use: No Preferred Language: Yoruba Communication Ability: Effective Visual Impairment: No Limitations Hearing Ability: Normal Tank Setter Helper Required: No Beliefs That Will Affect Care: None marital status: Current Living Situation: Spouse current occupational status: retired Other Information That Helps Us Care for You: No Feels Safe at Home: Yes Safety Concerns: Feels Safe At This Time Childhood Exposure to Second-Hand Smoke: No Diet Comment: eats what he wants to caffeine: Yes during the past year weight has: decreased > 10 lbs Dental Care, Regularly: No Physical Activity Frequency: Other Physical Activity Frequency Comment: house chores Seatbelt Use: never Sunscreen Use: No Assistive Devices: None Review of Systems Review of Systems: difficult to obtain as patient had just received pain medication Constitutional: denies fevers, chills admits vomiting X2 and diaphoresis Head: denies trauma, LOC Neurologic: admits focal weakness in legs, decreased sensation and numbness and tingling Physical Exam Constitutional: well developed and + altered mental status (after receiving pain medication he was sleepy and closing his eyes ) Eyes: PERRL, conjunctivae normal, anicteric sclerae ENMT: external ear and nose normal, oropharynx normal Neck: normal visual inspection Respiratory: normal respiratory effort, lungs clear to auscultation Cardiovascular: Rate/Rhythm: regular rate Heart Sounds: no murmur and no cardiac rub Extremities: no edema Gastrointestinal (Abdomen): - soft, slightly tender to palpation in the left lower quadrant Musculoskeletal: - feet cool to the touch - slightly decreased sensation in the legs to light touch - strength 4/5 on hip flexion (painful grimace while attempting) - pulses intact to posterior tibial Skin: no rashes, warm and dry Neurologic: CN's II-XI intact bilaterally and + confused Results & Data Results & Data ([facility]) Vital Signs (Past 12 Hours) Vital Signs Temp Pulse Pulse Resp BP BP Pulse Ox 01/17/21 21:08 114 H 157/100 H 01/17/21 20:01 111 H 14 141/93 H 98 01/17/21 19:31 114 H 13 133/104 H 96 01/17/21 19:01 115 H 16 176/97 H 96 01/17/21 18:31 116 H 21 93 01/17/21 18:30 115 H 17 164/108 H 01/17/21 18:01 113 H 24 93 01/17/21 18:00 112 H 20 150/102 H 95 01/17/21 17:31 113 H 14 92 01/17/21 17:30 115 H 21 160/99 H 93 01/17/21 17:06 116 H 20 125/88 92 01/17/21 17:01 119 H 20 94 01/17/21 17:00 145/101 H 94 01/17/21 16:56 125/88 01/17/21 16:55 93 01/17/21 15:02 104 H 17 151/95 H 98 01/17/21 15:01 104 H 13 151/95 H 100 01/17/21 15:00 105 H 15 95 01/17/21 14:31 102 H 19 92 01/17/21 14:30 103 H 21 138/62 94 01/17/21 14:01 103 H 16 92 01/17/21 14:00 102 H 19 131/99 91 01/17/21 13:31 105 H 20 97 01/17/21 13:30 106 H 16 168/145 H 94 01/17/21 13:15 36.5 C 107 H 107 H 20 189/110 H 189/110 H 94 01/17/21 13:13 105 H 24 93 01/17/21 13:12 103 H 14 158/126 H 94 CBC Results Results Complete Blood Count Results: RBC 5.06 M/uL (4.7-6.1) 01/18/21 WBC 8.61 K/uL (4.8-10.8) 01/18/21 Hgb 15.7 g/dL (14.0-18.0) 01/18/21 Hct 43.6 % (42-52) 01/18/21 Plt Count 282 K/uL (130-400) 01/18/21 Chemistry (BMP) Results BMP Results: Sodium 137 mmol/L (136-145) 01/18/21 Potassium 4.3 mmol/L (3.5-5.1) 01/18/21 Chloride 102 mmol/L (98-107) 01/18/21 BUN 24 mg/dl (7-18) H 01/18/21 Creatinine 1.02 mg/dl (0.6-1.4) 01/18/21 Glucose 204 mg/dl (70-99) H 01/18/21 Code Status & VTE Plan VTE Prophylaxis Plan VTE Prophylaxis will be ordered: Yes Supervising Physician Co-Signing Physician Notes Attending addendum: I have physically seen this patient, have supervised the medical residents act ivities, and agree with the H&P unless as otherwise noted. Assessment and Plan: L4-5 herniated disc/questionable concerns of cauda equina- Patient has been evaluated by orthopedic spine surgery Dr. Eckert, with plans for surgical correction the OR in the a.m. Placed on Decadron 10 mg IV now, and then 6 mg IV every 6 hours Dilaudid IV for moderate to severe pain Sinus tachycardia/rate dependent lateral changes on EKG- Placed on Lopressor IV and adjust dosing to control heart rate. Should be able to undergo surgery in the a.m. with appropriate rate control Diabetes mellitus- Hold Metformin Placed in Accu-Cheks before meals and at bedtime with NovoLog coverage per scale GERD- Continue famotidine. Continue omeprazole/pantoprazole Remaining orders and notations as noted Resident Activity Tracking Resident Involvement: Resident Care Provided Care Provided: Adult Hospital Medicine
[2021-01-17] MEDS ORDERED: POLYETHYLENE (MIRALAX) 17 GM PACK PO PRN (22:53)
[2021-01-17] MEDS ORDERED: ACETAMINOPHEN 325 MG TAB PO PRN (22:53)
[2021-01-17] MEDS ORDERED: HYDROmorphone INJ 0.5 MG/0.5 ML SYR IV PRN ×2 (22:53)
[2021-01-17] MEDS ORDERED: PHARMACY GLYCEMIC MGMT CONSULT PRN (23:05)
[2021-01-17] MEDS ORDERED: GLUCOSE 40% GEL 15 GM TUBE PO PRN (23:15)
[2021-01-17] MEDS ORDERED: DEXTROSE 50% 50 ML SYRINGE IV PRN (23:15)
[2021-01-17] MEDS ORDERED: CARBOHYDRATES FOR HYPOGLYCEMIA PO PRN (23:15)
[2021-01-17] MEDS ORDERED: GLUCAGON FOR INJ 1 MG VIAL SQ PRN (23:15)
[2021-01-17] MEDS ORDERED: GLUCOSE 10 TABS/TUBE PO PRN (23:15)
[2021-01-17] MEDS: SODIUM CHLORIDE 0.9% 500 ML IV SCH (23:25)
[2021-01-18] MEDS: PANTOprazole 40 MG TAB PO SCH ×3 (00:01→20:50)
[2021-01-18] MEDS: GABAPENTIN 300 MG CAP PO SCH ×3 (00:01→20:51)
[2021-01-18 00:05] LABS: Troponin I < 0.015 ng/ml (0-0.045)
[2021-01-18] MEDS: INSULIN ASPART 100 UNITS/ML 3 ML PEN SC SCH ×5 (00:31→20:54)
[2021-01-18] MEDS: SODIUM CHLORIDE 0.9% 500 ML IV SCH ×3 (04:22→17:10)
[2021-01-18] MEDS: LEVOTHYROXINE SODIUM 100 MCG TABLET PO SCH (05:40)
[2021-01-18] MEDS: dexAMETHasone 6 MG in SYRINGE 0 ML IV SCH ×3 (05:40→17:11)
[2021-01-18 06:19] LABS: Hematocrit (blood only) 43.6 % (42-52); Hemoglobin 15.7 g/dL (14.0-18.0); Immature Granulocytes # (auto) 0.02 K/uL (0.00-0.02); Immature Granulocytes % (auto) 0.2 %; Lymphocytes # (auto) 0.74 K/uL (1.2-3.4); Lymphocytes % (auto) 8.6 %; Mean Corpuscular Volume 86.2 fL (80-100); Mean Platelet Volume 11.2 fL (7.4-10.4); Monocytes # (auto) 0.08 K/uL (0.11-0.59); Monocytes % (auto) 0.9 %; Neutrophils # (auto) 7.77 K/uL (1.4-6.5); Neutrophils % (auto) 90.3 %; Platelet Count 282 K/uL (130-400); RDW Coefficient of Variation 12.4 % (11.5-14.5); RDW Standard Deviation 39.1 fL (36.4-46.3); Red Blood Count 5.06 M/uL (4.7-6.1); White Blood Count 8.61 K/uL (4.8-10.8)
[2021-01-18 06:37] LABS: Estimated Average Glucose 174 mg/dl; Hemoglobin A1C 7.7 % (4.5-5.6)
[2021-01-18 06:48] LABS: BUN Creatinine Ratio 23.8 (10-20); Calcium 8.8 mg/dl (8.5-10.1); Creatinine Clr Calc Pharmacy 87.1 ml/min; Est GFR (African American) 86.5; Est GFR (Non-African American) 74.6; Potassium 4.3 mmol/L (3.5-5.1)
[2021-01-18] MEDS ORDERED: INSULIN HUMAN NPH SC ONE (08:00)
[2021-01-18] MEDS: ATORVASTATIN 40 MG TAB PO SCH (08:55)
[2021-01-18] MEDS ORDERED: GLYCOPYRROLATE 0.2 MG/ML VIAL ONE (11:10)
[2021-01-18] MEDS ORDERED: ONDANSETRON INJ 2 MG/ML 2 ML VIAL ONE (11:10)
[2021-01-18] MEDS ORDERED: DEXAMETHASONE SOD INJ 4 MG/ML VIAL ONE (11:10)
[2021-01-18] MEDS ORDERED: PROPOFOL IV EMULSION 10 MG/ML 20 ML VIAL IV ONE (11:10)
[2021-01-18] MEDS ORDERED: fentaNYL citrate 100 MCG/2 ML VIAL ONE ×2 (11:10)
[2021-01-18] MEDS ORDERED: MIDAZOLAM HCL 1 MG/ML 2ML VIAL ONE (11:10)
[2021-01-18] MEDS ORDERED: ROCURONIUM BROMIDE 10 MG/ML 5 ML VIAL IV ONE (11:10)
[2021-01-18] MEDS ORDERED: LIDOCAINE HCL 2% 2 ML VIAL/AMP(20MG/ML) INFIL ONE (11:10)
[2021-01-18] MEDS ORDERED: NEOSTIGMINE METHYLSULFATE 1 MG/ML 10ML VIAL ONE (11:10)
--- NOTE | 2021-01-18 12:51 | History & Physical Bridge Note ---
Date of Service January 18, 2021 History & Physical Bridge Note I have examined the patient, reviewed the History & Physical and in the interval since the performance of the History & Physical I have noted the following changes of clinical significance: no changes noted Lumbar decompression L4-5 with possible fusion
[2021-01-18] MEDS ORDERED: BUPIVACAINE/EPINEPHRINE 0.5% MPF 1:200,000 30 ML VIAL ONE (13:11)
[2021-01-18] MEDS ORDERED: CLINDAMYCIN 600 MG/54 ML D5W IV ONE (13:12)
[2021-01-18] MEDS ORDERED: ePHEDrine sulfate 50 MG/ML AMP IV PRN (13:14)
[2021-01-18] MEDS ORDERED: ONDANSETRON INJ 2 MG/ML 2 ML VIAL IV PRN ×2 (13:14→16:40)
[2021-01-18] MEDS ORDERED: ATROPINE SULFATE 0.1 MG/ML 10ML SYR IV PRN (13:14)
[2021-01-18] MEDS ORDERED: PROMETHAZINE HCL 6.25 MG in SODIUM CHLORIDE 0.9% 50 ML IV PRN (13:14)
[2021-01-18] MEDS ORDERED: HYDROmorphone INJ 2 MG/ML SYR/VIAL IV PRN (13:14)
[2021-01-18] MEDS: CLINDAMYCIN 600 MG/54 ML BAG IV SCH (13:37)
--- NOTE | 2021-01-18 14:01 | Pharmacy Report ---
Pharmacy Glycemic Short Note 2 - Date of Service January 18, 2021 - Glycemic Short BSG Results (Last 24 hours): 01/17/21 01/17/21 01/18/21 14:28 23:14 05:37 Glucose 146 H POC Glucose 210 H 217 H 01/18/21 01/18/21 05:54 11:19 Glucose 204 H POC Glucose 161 H OUTPATIENT ANTIDIABETIC REGIMEN: * metformin, glimepiride * A1c 7.7% ASSESSMENT: * 70 year old with lumbar disc herniation, plan for OR today. * Type 2 diabetic managed on orals at home. Started dexamethasone * Fasting BSG elevated this AM 217 mg/dL due to steroids last night given. Plan to start NPH BID to help with steroid coverage. Given 20 units x 1 this AM and will start scale for evening dosing. * Will receive steroids x 3 doses and then stop per order PLAN FOR INPATIENT GLYCEMIC CONTROL: * Hold outpatient oral diabetes medications * Basal insulin * NPH - 20 units x 1 * NPH 15-25 units with dinner * Bolus insulin * NovoLog per scale ACHS or Q6hrs while NPO * Goal Range: Low 110 mg/dL - High 140 mg/dL * Correction Factor: 15 mg/dL/unit * Nutritional / Prandial insulin per carb ratio of 1 unit per 5 grams CHO consumed PLAN FOR DISCHARGE: * tbd
[2021-01-18] MEDS ORDERED: FLOSEAL HEMOSTATIC MATRIX 10ML TOP ONE (14:49)
--- NOTE | 2021-01-18 15:00 | Operative Report ---
Post Operative Report Pre & Post Diagnosis Operation Date: 01/18/21 07:00 Pre-Op Diagnosis: Lumbar Disc Herniation with Radiculopathy Post-Op Diagnosis: Lumbar Disc Herniation with Radiculopathy Operation Date: 01/18/21 07:45 <No data on this case meets the specified criteria> I identified the patient and participated in the time-out.: Yes Procedure Operation Date: 01/18/21 07:00 Actual Procedures #1 lumbar decompression bilateral medial facetectomies and foraminotomies L3-4 and L4-5 per #2 posterior spinal fusion L4-5 per #3 placement posterior instrumentation L4-5 per #4 interbody fusion L4-5. #5 placement peek cage 13 x 26 mm at L4-5. #6 placement locally harvested morselized autograft in the posterior lateral gutters. #7 placement infuse collagen sponge, master graft in the posterior gutters and I factor and interbody space. Surgeon Young Eckert, Cannery Tender Engineer Ania Padilla Estimated Blood Loss 100 Findings Consistent with Post-Op Diagnosis Specimens None Indications This is a 70-year-old male who presents with severe spinal stenosis and marked decline in neurologic status and here for urgent decompression fusion. Description of Procedure Patient met with identified informed consent obtained. Patient was then taken to the operative suite underwent an patient placed in a prone position injectable top of some frame. All bony prominences well-padded eyes inspected to ensure no external pressure placed upon the. This point the lumbar spine is prepped and draped in a sterile fashion. Sharp dissection with assistance of Bovie cautery performed down to and exposing the lamina and transverse processes of L4 and L5 bilaterally. From caudal cephalad fashion complete laminectomy of L4 partial laminectomy L3 was performed including bilateral medial facetectomies and foraminotomies addressing severe stenosis. Also identified massive central disc herniation that was removed in its entirety. Pedicle screws then placed in L4 and L5 bilaterally with assistance of fluoroscopy and the proper sized beverley placed. By way of a transfemoral approach on right a complete discectomy of 4 5 was performed endplates curetted to subcortical being bone and a 13 x 26 mm peek cage filled with I factor tapped in position. The rods were then locked in final position bilaterally. The transverse processes of L4 and L5 burred to subcortically bone. Infuse collagen sponge master graft lobe autograft was placed in posterior gutters. 15 round HEATH drain inserted. The incision was then closed with 1 Vicryl to fascia 2-0 Vicryl subcutaneously and 4 Monocryl for final skin closure. Steri-Strip sterile dressings placed. Patient waken taken to PACU stable condition. Please note spinal cord monitoring was utilized at the procedure and no changes noted. Lastly Ania Padilla was present at the entire surgery involved in patient positioning complex portions of the surgery and final skin closure. I attest to the content of the Intraoperative Record and any orders documented therein. Any exceptions are noted below.
--- NOTE | 2021-01-18 15:13 | Fluoroscopy Report ---
FL lumbar spine 2-3V CLINICAL HISTORY: L4-L5 DECOMPRESSION AND FUSION COMPARISON STUDY: Lumbar spine MRI January 17, 2021. FLUOROSCOPY TIME: 15 seconds. FLUOROSCOPIC IMAGES: 2 FINDINGS: Fluoroscopy was provided during L4-L5 discectomy, posterior decompression and bilateral ped icle screw fusion. Hardware is intact. There are no unexpected radiopaque foreign bodies. IMPRESSION: Fluoroscopy provided during L4-L5 discectomy, posterior decompression and bilateral pedi juan c screw fusion. ACT 112: Negative or not required by law. Electronically signed by: Kevin Del Angel M.D. 01/18/2021 3:12 PM
[2021-01-18] MEDS ORDERED: METOPROLOL TARTRATE 1 MG/ML VIAL IV ONE (15:41)
[2021-01-18] MEDS ORDERED: METOPROLOL TARTRATE 1 MG/ML VIAL IV STA (15:52)
[2021-01-18] MEDS: fentaNYL citrate 100 MCG/2 ML VIAL IV PRN ×2 (16:01→16:06)
--- NOTE | 2021-01-18 16:08 | Electrocardiogram Report ---
Test Reason : Blood Pressure : / mmHG Vent. Rate : 115 BPM Atrial Rate : 115 BPM P-R Int : 168 ms QRS Dur : 090 ms QT Int : 338 ms P-R-T Axes : 061 -14 073 degrees QTc Int : 467 ms Sinus tachycardia Nonspecific T wave abnormality Abnormal ECG When compared with ECG of 21-SEP-2016 07:51, Nonspecific T wave abnormality now evident in Lateral leads Confirmed by Lino Salmeron ([id number]) on 01/18/2021 4:07:56 PM Referred By: REFERRED SELF Confirmed By:Lino Salmeron
--- NOTE | 2021-01-18 16:13 | Anesthesiology Progress Note ---
Date of Service January 18, 2021 Anesthesia Post Procedure Vital Signs Vital Signs: Temp Pulse Pulse Resp BP BP Pulse Ox 01/18/21 16:05 101 H 16 167/107 H 93 01/18/21 15:55 100 H 16 166/104 H 92 01/18/21 15:45 100 H 16 147/108 H 94 01/18/21 15:43 111 H 171/101 H 01/18/21 15:35 111 H 16 161/95 H 94 01/18/21 15:25 115 H 16 170/103 H 94 01/18/21 15:18 36.8 C 124 H 16 157/124 H 94 01/18/21 11:25 93 01/18/21 11:24 115 H 18 156/94 H 89 L 01/18/21 11:03 36.9 C 115 H 18 158/110 H 92 01/18/21 07:26 37.2 C 110 H 18 155/97 H 92 01/18/21 07:16 109 H 01/18/21 03:00 36.7 C 113 H 20 179/95 H 97 01/18/21 01:35 108 H 01/17/21 22:52 108 H 01/17/21 22:27 104 H 20 152/96 H 96 01/17/21 21:08 114 H 157/100 H 01/17/21 20:01 111 H 14 141/93 H 98 01/17/21 19:31 114 H 13 133/104 H 96 01/17/21 19:01 115 H 16 176/97 H 96 01/17/21 18:31 116 H 21 93 01/17/21 18:30 115 H 17 164/108 H 01/17/21 18:01 113 H 24 93 01/17/21 18:00 112 H 20 150/102 H 95 01/17/21 17:31 113 H 14 92 01/17/21 17:30 115 H 21 160/99 H 93 01/17/21 17:06 116 H 20 125/88 92 01/17/21 17:01 119 H 20 94 01/17/21 17:00 145/101 H 94 01/17/21 16:56 125/88 01/17/21 16:55 93 Pain Intensity Bilateral Leg: Pain Intensity: 7 Transfer of Care Handoff Completed per policy Notes Mental Status: alert / awake / arousable Patient Amnestic to Procedure: Yes Nausea / Vomiting: adequately controlled Pain: adequately controlled Airway Patency, RR, SpO2: stable & adequate BP & HR: stable & adequate Hydration State: stable & adequate Anesthetic Complications: no major complications apparent
--- NOTE | 2021-01-18 16:13 | Electrocardiogram Report ---
Test Reason : Blood Pressure : / mmHG Vent. Rate : 108 BPM Atrial Rate : 108 BPM P-R Int : 166 ms QRS Dur : 092 ms QT Int : 330 ms P-R-T Axes : 060 004 025 degrees QTc Int : 442 ms Sinus tachycardia Otherwise normal ECG When compared with ECG of 17-JAN-2021 18:22, (unconfirmed) No significant change was found Confirmed by Lino Salmeron ([id number]) on 01/18/2021 4:13:03 PM Referred By: REFERRED SELF Confirmed By:Lino Salmeron
[2021-01-18] MEDS ORDERED: ACETAMINOPHEN 500 MG TAB PO PRN (16:40)
[2021-01-18] MEDS ORDERED: SOD PHOSPHATE/SOD BIPHOSPHATE ENEMA 132 ML BTL PR PRN (16:40)
[2021-01-18] MEDS ORDERED: SODIUM CHLORIDE 0.9% 1000ML 1,000 ML IV SCH (16:40)
[2021-01-18] MEDS ORDERED: PROMETHAZINE HCL 12.5 MG in SODIUM CHLORIDE 0.9% 50 ML IV PRN (16:40)
[2021-01-18] MEDS ORDERED: ONDANSETRON 4 MG OD TAB PO PRN (16:40)
[2021-01-18] MEDS ORDERED: METOPROLOL TARTRATE 1 MG/ML VIAL IV PRN (16:40)
[2021-01-18] MEDS ORDERED: hydrOXYzine HCl 25 MG TAB PO PRN (16:40)
[2021-01-18] MEDS ORDERED: MAGNESIUM HYDROXIDE SUSP 30 ML UDC PO PRN (16:40)
[2021-01-18] MEDS ORDERED: DO NOT ADMINISTER FLU VACCINE PRN (16:40)
[2021-01-18] MEDS ORDERED: HYDROmorphone INJ 0.5 MG/0.5 ML SYR IV PRN (16:40)
[2021-01-18] MEDS ORDERED: NALOXONE HCL 0.4 MG/1 ML VIAL/CARP IV PRN (16:40)
[2021-01-18] MEDS ORDERED: HYDROmorphone INJ 1 MG/ML SYRINGE IV PRN (16:40)
[2021-01-18] MEDS ORDERED: ACETAMINOPHEN 1,000 MG/100 ML VIAL IV PRN (16:40)
[2021-01-18] MEDS ORDERED: DO NOT ADMINISTER PNEUMOCOCCAL VACCINE PRN (16:40)
[2021-01-18] MEDS ORDERED: LORazepam 0.5 MG/1 ML VIAL IV PRN (16:40)
[2021-01-18] MEDS ORDERED: diphenhydrAMINE Capsule 25 MG CAP PO PRN (16:40)
[2021-01-18] MEDS ORDERED: bisacodyL 10 MG SUPP PR PRN (16:40)
[2021-01-18] MEDS ORDERED: FAMOTIDINE 20 MG TAB PO PRN (16:40)
[2021-01-18] MEDS ORDERED: LORazepam 0.5 MG TAB PO PRN (16:40)
[2021-01-18] MEDS ORDERED: METOCLOPRAMIDE HCL INJ 5 MG/ML 2 ML VIAL IV PRN (16:40)
[2021-01-18] MEDS ORDERED: ALUMINUM/MAGNESIUM SUSP 30 ML UDC PO PRN (16:40)
[2021-01-18] MEDS ORDERED: INSULIN HUMAN NPH SC SCH (18:00)
[2021-01-18] MEDS: FAMOTIDINE 40 MG TABLET PO SCH (20:51)
[2021-01-18] MEDS: DOCUSATE SODIUM/SENNA 50/8.6MG TAB PO SCH (20:51)
[2021-01-18] MEDS ORDERED: Nursing to Pharmacy Communication SCH (21:30)
[2021-01-18] MEDS: CLINDAMYCIN 600 MG in DEXTROSE 5% 50 ML IV SCH (22:19)
--- NOTE | 2021-01-18 22:28 | Hospitalist Progress Note ---
Date of Service January 18, 2021 Assessment & Plan (1) Lumbar disc herniation with radiculopathy: Admission Date: 70 yo M w/ pMHx. of HTN, HLD, OA, gout, DM, reflux and testicular cancer presents with 6 days of progressively worsening leg pain and numbness Leg pain, with lumbar disc herniation and concern for cauda equina on MRI L spine 6 days of progressive symptoms patient evaluated by Dr. Eckert and recommendation to optimize for surgery procedure on 01/18: #1 lumbar decompression bilateral medial facetectomies and foraminotomies L3-4 and L4-5 per #2 posterior spinal fusion L4-5 per #3 placement posterior instrumentation L4-5 per #4 interbody fusion L4-5. #5 placement peek cage 13 x 26 mm at L4-5. #6 placement locally harvested morselized autograft in the posterior lateral gutters. #7 placement infuse collagen sponge, master graft in the posterior gutters and I factor and interbody space. - pain control with Dilaudid Sinus tachycardia likely 2/2 pain EKG with lateral flattening - neg troponin - continue tele, will give Lopressor 5mg IV q6 PRN for hypertension Constipation LBM 12 days prior - ordered Miralax PRN, watch for return of bowel function after surgery Reflux - continue Famotidine and Omeprazole DM - holding Metformin - consulting pharmacy given patient will be on Decadron, Novolog SS diabetic diet now that he can eat Code: full (2) Hypertension: (3) GERD (gastroesophageal reflux disease): (4) Hypothyroidism: (5) Dyslipidemia (high LDL; low HDL): (6) Diabetes: (7) Sinus tachycardia: Admission and Anticipated Discharge Date Admission Date: January 17, 2021 Subjective patient underwent surgery today with Dr. Eckert, tolerated well seen in the PACU while recovering reviewed chart, reviewed labs patient hypertensive and tachycardic in the PACU, was tachycardic on admission as well Review of Systems Review of Systems: Unobtainable due to reduced consciousness (lethargic from anesthesia) Physical Exam Constitutional: well developed, well nourished and + lethargic; no acute distress Neck: trachea midline, no thyromegaly Respiratory: normal respiratory effort, lungs clear to auscultation Cardiovascular: Rate/Rhythm: regular rhythm and + tachycardic Heart Sounds: normal S1 and normal S2; no murmur Vessels: no JVD Extremities: normal capillary refill; no edema Gastrointestinal (Abdomen): normal bowel sounds, soft, nontender, no hepatosplenomegaly Skin: no rashes, warm and dry Neurologic: CN's II-XI intact bilaterally and moves all extremities; no focal motor deficits Psychiatric: A+Ox3, euthymic affect Lymphatic: no cervical or axillary lymphadenopathy Results & Data Results & Data ([facility]) Vital Signs (Past 12 Hours) Vital Signs Temp Pulse Pulse Resp BP BP Pulse Ox 01/18/21 20:27 37.6 C H 113 H 20 116/71 95 01/18/21 19:20 36.4 C L 114 H 18 127/81 93 01/18/21 18:03 106 H 01/18/21 18:01 36.6 C 113 H 18 154/90 H 90 01/18/21 17:10 37 C 104 H 16 154/90 H 92 01/18/21 16:40 37.1 C 108 H 18 166/100 H 94 01/18/21 16:15 36.6 C 105 H 16 168/99 H 93 01/18/21 16:05 101 H 16 167/107 H 93 01/18/21 15:55 100 H 16 166/104 H 92 01/18/21 15:45 100 H 16 147/108 H 94 01/18/21 15:43 111 H 171/101 H 01/18/21 15:35 111 H 16 161/95 H 94 01/18/21 15:25 115 H 16 170/103 H 94 01/18/21 15:18 36.8 C 124 H 16 157/124 H 94 01/18/21 11:25 93 01/18/21 11:24 115 H 18 156/94 H 89 L 01/18/21 11:03 36.9 C 115 H 18 158/110 H 92 Laboratory Results Laboratory Results - last 24 hr 01/17/21 01/17/21 01/18/21 14:28 23:14 05:37 WBC RBC Hgb Hct MCV MCH MCHC RDW Std Deviation RDW Coeff of Radha Plt Count MPV Immature Gran % (Auto) Neut % (Auto) Lymph % (Auto) [place] % (Auto) Eos % (Auto) Baso % (Auto) Neut # (Auto) Lymph # (Auto) [place] # (Auto) Eos # (Auto) Baso # (Auto) Immature Gran # (Auto) Sodium Potassium Chloride Carbon Dioxide Anion Gap BUN Creatinine Est Cr Clr Drug Dosing Est GFR ( Amer) Est GFR (Non-Af Amer) BUN/Creatinine Ratio Glucose POC Glucose 210 H 217 H Estimat Average Glucose Hemoglobin A1c Calcium Troponin I < 0.015 01/18/21 01/18/21 01/18/21 05:54 05:54 05:54 WBC 8.61 RBC 5.06 Hgb 15.7 Hct 43.6 MCV 86.2 MCH 31.0 MCHC 36.0 RDW Std Deviation 39.1 RDW Coeff of Radha 12.4 Plt Count 282 MPV 11.2 H Immature Gran % (Auto) 0.2 Neut % (Auto) 90.3 Lymph % (Auto) 8.6 [place] % (Auto) 0.9 Eos % (Auto) 0.0 Baso % (Auto) 0.0 Neut # (Auto) 7.77 H Lymph # (Auto) 0.74 L [place] # (Auto) 0.08 L Eos # (Auto) 0.00 Baso # (Auto) 0.00 Immature Gran # (Auto) 0.02 Sodium 137 Potassium 4.3 Chloride 102 Carbon Dioxide 29 Anion Gap 6.0 BUN 24 H Creatinine 1.02 Est Cr Clr Drug Dosing 87.1 Est GFR ( Amer) 86.5 Est GFR (Non-Af Amer) 74.6 BUN/Creatinine Ratio 23.8 H Glucose 204 H POC Glucose Estimat Average Glucose 174 Hemoglobin A1c 7.7 H Calcium 8.8 Troponin I 01/18/21 01/18/21 01/18/21 11:19 15:20 16:42 WBC RBC Hgb Hct MCV MCH MCHC RDW Std Deviation RDW Coeff of Radha Plt Count MPV Immature Gran % (Auto) Neut % (Auto) Lymph % (Auto) [place] % (Auto) Eos % (Auto) Baso % (Auto) Neut # (Auto) Lymph # (Auto) [place] # (Auto) Eos # (Auto) Baso # (Auto) Immature Gran # (Auto) Sodium Potassium Chloride Carbon Dioxide Anion Gap BUN Creatinine Est Cr Clr Drug Dosing Est GFR ( Amer) Est GFR (Non-Af Amer) BUN/Creatinine Ratio Glucose POC Glucose 161 H 140 H 188 H Estimat Average Glucose Hemoglobin A1c Calcium Troponin I 01/18/21 20:49 WBC RBC Hgb Hct MCV MCH MCHC RDW Std Deviation RDW Coeff of Radha Plt Count MPV Immature Gran % (Auto) Neut % (Auto) Lymph % (Auto) [place] % (Auto) Eos % (Auto) Baso % (Auto) Neut # (Auto) Lymph # (Auto) [place] # (Auto) Eos # (Auto) Baso # (Auto) Immature Gran # (Auto) Sodium Potassium Chloride Carbon Dioxide Anion Gap BUN Creatinine Est Cr Clr Drug Dosing Est GFR ( Amer) Est GFR (Non-Af Amer) BUN/Creatinine Ratio Glucose POC Glucose 199 H Estimat Average Glucose Hemoglobin A1c Calcium Troponin I Medications Administered Current Inpatient Medications Acetaminophen (Acetaminophen 500 Mg Tab) 1,000 mg PO Q8H PRN PRN Reason: MILD Pain Scale 1,2,3 & Pre PT Stop: 02/17/21 16:39 Al Hydrox/Mg Hydrox/Simethicone (Aluminum/Magnesium Susp 30 Ml Udc) 30 ml PO Q6H PRN PRN Reason: Dyspepsia Stop: 02/17/21 16:39 Atorvastatin Calcium (Atorvastatin 40 Mg Tab) 40 mg PO DAILY NOAH Stop: 02/17/21 08:59 Last Admin: 01/18/21 08:55 Dose: 40 mg Documented by: Bisacodyl (Bisacodyl 10 Mg Supp) 10 mg [place] DAILY PRN PRN Reason: Constipation Stop: 02/17/21 16:39 Dextrose (Dextrose 50% 50 Ml Syringe) 25 - 50 ml IV UD PRN; Protocol PRN Reason: Hypoglycemia Protocol Stop: 02/16/21 23:14 Diphenhydramine HCl (Diphenhydramine Capsule 25 Mg Cap) 25 mg PO Q6H PRN PRN Reason: Allergic Rhinitis/Insomnia Stop: 02/17/21 16:39 Famotidine (Famotidine 40 Mg Tablet) 40 mg PO HS NOAH Stop: 02/17/21 20:59 Last Admin: 01/18/21 20:51 Dose: 40 mg Documented by: Famotidine (Famotidine 20 Mg Tab) 20 mg PO Q12H PRN PRN Reason: Dyspepsia Stop: 02/17/21 16:39 Gabapentin (Gabapentin 300 Mg Cap) 300 mg PO BID NOAH Stop: 02/16/21 22:52 Last Admin: 01/18/21 20:51 Dose: 300 mg Documented by: Glucagon (Glucagon For Inj 1 Mg Vial) 1 mg SQ UD PRN; Protocol PRN Reason: Hypoglycemia Protocol Stop: 02/16/21 23:14 Glucose (Glucose 40% Gel 15 Gm Tube) 15 - 30 gm PO UD PRN; Protocol PRN Reason: Hypoglycemia Protocol Stop: 02/16/21 23:14 Glucose (Glucose 10 Tabs/Tube) 4 - 8 tabs PO UD PRN; Protocol PRN Reason: Hypoglycemia Protocol Stop: 02/16/21 23:14 Hydromorphone HCl (Hydromorphone Inj 0.5 Mg/0.5 Ml Syr) 0.5 mg IV Q3H PRN PRN Reason: MOD pain (scale 4-6) & Pre PT Stop: 02/01/21 16:39 Hydromorphone HCl (Hydromorphone Inj 1 Mg/Ml Syringe) 1 mg IV Q3H PRN PRN Reason: severe pain (scale 7-10) Stop: 02/01/21 16:39 Last Admin: 01/18/21 17:04 Dose: 1 mg Documented by: Hydroxyzine HCl (Hydroxyzine Hcl 25 Mg Tab) 25 mg PO Q8H PRN PRN Reason: Anxiety Stop: 02/17/21 16:39 Dexamethasone 6 mg/ Syringe 1.5 mls @ 1 mls/min IV Q6H NOAH Stop: 01/18/21 22:29 Last Admin: 01/18/21 17:11 Dose: 1 mls/min Documented by: Clindamycin Phosphate (Cleocin) 600 mg in 54 mls @ 100 mls/hr IV PREOP NOAH Stop: 01/19/21 13:29 Last Infusion: 01/18/21 19:34 Dose: Infused Documented by: Acetaminophen (Ofirmev) 1,000 mg in 100 mls @ 400 mls/hr IV Q8H PRN PRN Reason: MILD Pain Rating 1,2,3 Stop: 01/19/21 16:39 Promethazine HCl 12.5 mg/ (Sodium Chloride) 50.5 mls @ 204 mls/hr IV Q6H PRN PRN Reason: Nausea &/or Vomiting Stop: 02/17/21 16:39 Lorazepam (Ativan) 0.5 mg in 1 mls @ 0.5 mls/min IV Q8H PRN PRN Reason: Sedation/Anxiety Stop: 02/17/21 16:39 Clindamycin Phosphate 600 mg/ (Dextrose) 54 mls @ 100 mls/hr IV Q8H [facility] Stop: 01/19/21 06:33 Last Admin: 01/18/21 22:19 Dose: 100 mls/hr Documented by: Influenza Virus Vaccine Quadrival (Do Not Administer Flu Vaccine) 1 ea N/A PRN PRN PRN Reason: Notification Stop: 02/17/21 16:39 Insulin Aspart (Insulin Aspart 100 Units/Ml 3 Ml Pen) 0 units SC ACHS [facility] Stop: 02/17/21 20:59 Last Admin: 01/18/21 20:54 Dose: 4 units Documented by: Insulin Human NPH (Insulin Human Nph) 0 units SC DAILY@1800 NOAH; Protocol Stop: 01/18/21 23:59 Last Admin: 01/18/21 17:15 Dose: 20 units Documented by: Levothyroxine Sodium (Levothyroxine Sodium 100 Mcg Tablet) 100 mcg PO DAILYBB [facility] Stop: 02/17/21 06:29 Last Admin: 01/18/21 05:40 Dose: 100 mcg Documented by: Lorazepam (Lorazepam 0.5 Mg Tab) 0.5 mg PO Q8H PRN PRN Reason: Sedation/Anxiety Stop: 02/17/21 16:39 Magnesium Hydroxide (Magnesium Hydroxide Susp 30 Ml Udc) 30 ml PO DAILY PRN PRN Reason: Constipation Stop: 02/17/21 16:39 Metoclopramide HCl (Metoclopramide Hcl Inj 5 Mg/Ml 2 Ml Vial) 10 mg IV Q6H PRN PRN Reason: Nausea &/or Vomiting Stop: 02/17/21 16:39 Metoprolol Tartrate (Metoprolol Tartrate 1 Mg/Ml Vial) 5 mg IV Q6 PRN PRN Reason: Blood Pressure - High Stop: 02/17/21 16:39 Miscellaneous (Carbohydrates For Hypoglycemia ) 15 - 30 gm PO UD PRN PRN Reason: Hypoglycemia Treatment Stop: 02/16/21 23:14 Miscellaneous Information (Pharmacy Glycemic Mgmt Consult) 1 ea N/A UD PRN PRN Reason: Consult Stop: 02/16/21 23:04 Naloxone HCl (Naloxone Hcl 0.4 Mg/1 Ml Vial/Carp) 0.1 mg IV Q5M PRN; Protocol PRN Reason: Oversedation/Resp Depression Stop: 02/17/21 16:39 Ondansetron HCl (Ondansetron Inj 2 Mg/Ml 2 Ml Vial) 4 mg IV Q6H PRN PRN Reason: Nausea &/or Vomiting Stop: 02/17/21 16:39 Ondansetron HCl (Ondansetron 4 Mg Od Tab) 4 mg PO Q6H PRN PRN Reason: Nausea Stop: 02/17/21 16:39 Oxycodone HCl (Oxycodone Hcl Ir 5 Mg Tab (Immediate Release)) 5 - 10 mg PO Q4H PRN PRN Reason: Moderate-Severe Pain & Pre PT Stop: 02/01/21 16:39 Pantoprazole Sodium (Pantoprazole 40 Mg Tab) 40 mg PO BID NOAH Stop: 02/16/21 22:44 Last Admin: 01/18/21 20:50 Dose: 40 mg Documented by: Pneumococcal Polyvalent Vaccine (Do Not Administer Pneumococcal Vaccine) 1 ea N/A PRN PRN PRN Reason: Notification Stop: 02/17/21 16:39 Polyethylene Glycol (Polyethylene (Miralax) 17 Gm Pack) 17 gm PO DAILY PRN PRN Reason: Constipation Stop: 02/16/21 22:52 Polyethylene Glycol (Polyethylene (Miralax) 17 Gm Pack) 17 gm PO Q6 NOAH Stop: 02/18/21 05:59 Senna/Docusate Sodium (Docusate Sodium/Senna 50/8.6mg Tab) 2 tab PO HS NOAH Stop: 02/17/21 20:59 Last Admin: 01/18/21 20:51 Dose: 2 tab Documented by: Sodium Biphosphate/Sodium Phosphate (Sod Phosphate/Sod Biphosphate Enema 132 Ml Btl) 132 ml [place] ONE PRN PRN Reason: Constipation Stop: 02/17/21 16:39 Tramadol HCl (Tramadol Hcl 50 Mg Tablet) 50 - 100 mg PO Q4H PRN PRN Reason: Moderate-Severe Pain & Pre PT Stop: 02/17/21 16:39 PG Care Time/CCT Total # of Minutes Spent Total Time Spent with Patient: Total time spent is greater than 50% in coordination of care (as documented) at patient's floor/unit and/or counseling patient: Coding Level of Care Code 97035 Subseq Hosp Care Lvl 2 Diagnoses Lumbar disc herniation with radiculopathy M51.16 Hypertension I10 GERD (gastroesophageal reflux disease) K21.9 Hypothyroidism E03.9 Dyslipidemia (high LDL; low HDL) E78.5 Diabetes E11.9 Sinus tachycardia R00.0
[2021-01-19] MEDS: traMADol HCL 50 MG TABLET PO PRN (00:33)
--- NOTE | 2021-01-19 01:15 | Billing Data ---
Date of Service January 19, 2021 Coding Level of Care Code 91617 Initial Inpt Care Lvl 3
[2021-01-19] MEDS: CLINDAMYCIN 600 MG/54 ML BAG IV SCH (04:19)
[2021-01-19] MEDS ORDERED: CHLORASEPTIC 1.4% SOLN 180 ML BTL MT STA (04:42)
[2021-01-19] MEDS: oxyCODONE HCL IR 5 MG TAB (IMMEDIATE RELEASE) PO PRN (04:48)
[2021-01-19 06:18] LABS: Hematocrit (blood only) 37.7 % (42-52); Hemoglobin 13.3 g/dL (14.0-18.0); Immature Granulocytes # (auto) 0.02 K/uL (0.00-0.02); Immature Granulocytes % (auto) 0.2 %; Lymphocytes # (auto) 1.55 K/uL (1.2-3.4); Lymphocytes % (auto) 12.7 %; Mean Corpuscular Hemoglobin 30.7 pg (25-34); Mean Corpuscular Hgb Conc 35.3 g/dL (32-36); Mean Corpuscular Volume 87.1 fL (80-100); Mean Platelet Volume 11.4 fL (7.4-10.4); Monocytes # (auto) 1.45 K/uL (0.11-0.59); Monocytes % (auto) 11.8 %; Neutrophils # (auto) 9.23 K/uL (1.4-6.5); Neutrophils % (auto) 75.3 %; Platelet Count 250 K/uL (130-400); RDW Coefficient of Variation 12.3 % (11.5-14.5); RDW Standard Deviation 39.8 fL (36.4-46.3); Red Blood Count 4.33 M/uL (4.7-6.1); White Blood Count 12.25 K/uL (4.8-10.8)
[2021-01-19] MEDS: CLINDAMYCIN 600 MG in DEXTROSE 5% 50 ML IV SCH (06:21)
[2021-01-19] MEDS: LEVOTHYROXINE SODIUM 100 MCG TABLET PO SCH (06:22)
[2021-01-19] MEDS: POLYETHYLENE (MIRALAX) 17 GM PACK PO SCH ×3 (06:30→17:18)
[2021-01-19 06:52] LABS: BUN Creatinine Ratio 24.1 (10-20); Calcium 8.7 mg/dl (8.5-10.1); Creatinine Clr Calc Pharmacy 81.5 ml/min; Est GFR (African American) 79.8; Est GFR (Non-African American) 68.9; Potassium 4.2 mmol/L (3.5-5.1)
[2021-01-19] MEDS ORDERED: INSULIN HUMAN NPH SC ONE (08:00)
[2021-01-19] MEDS: INSULIN ASPART 100 UNITS/ML 3 ML PEN SC SCH ×4 (08:33→20:42)
[2021-01-19] MEDS: ATORVASTATIN 40 MG TAB PO SCH (08:34)
[2021-01-19] MEDS: GABAPENTIN 300 MG CAP PO SCH ×2 (08:34→20:41)
[2021-01-19] MEDS: PANTOprazole 40 MG TAB PO SCH ×2 (08:34→20:40)
--- NOTE | 2021-01-19 14:38 | Hospitalist Progress Note ---
Date of Service January 19, 2021 Assessment & Plan (1) Lumbar disc herniation with radiculopathy: Admission Date: 70 yo M w/ pMHx. of HTN, HLD, OA, gout, DM, reflux and testicular cancer presents with 6 days of progressively worsening leg pain and numbness Leg pain, with lumbar disc herniation and concern for cauda equina on MRI L spine 6 days of progressive symptoms patient evaluated by Dr. Eckert and recommendation to optimize for surgery procedure on 01/18: #1 lumbar decompression bilateral medial facetectomies and foraminotomies L3-4 and L4-5 per #2 posterior spinal fusion L4-5 per #3 placement posterior instrumentation L4-5 per #4 interbody fusion L4-5. #5 placement peek cage 13 x 26 mm at L4-5. #6 placement locally harvested morselized autograft in the posterior lateral gutters. #7 placement infuse collagen sponge, master graft in the posterior gutters and I factor and interbody space. has some numbness of groin and perianal region, can move lower extremities will get PT/OT, anticipate him needing acute rehabilitation labs are stable today still with sinus tachycardia but only in 100's Sinus tachycardia likely 2/2 pain EKG with lateral flattening - neg troponin - continue tele for today, can likely go to surgical floor tomorrow morning Constipation LBM 2 weeks ago - ordered Miralax PRN, watch for return of bowel function after surgery abdomen is distended, has bowel sounds, no nausea check KUB tomorrow if no BM Reflux - continue Famotidine and Omeprazole DM - holding Metformin Novolog SS diabetic diet now that he can eat Code: full (2) Hypertension: (3) GERD (gastroesophageal reflux disease): (4) Hypothyroidism: (5) Dyslipidemia (high LDL; low HDL): (6) Diabetes: (7) Sinus tachycardia: Admission and Anticipated Discharge Date Admission Date: January 17, 2021 Subjective patient reports he has numbness of his pelvis and buttocks he has no sensation over his genitalia, he said he was having some numbness prior to admission his hewitt has been pulled, he has not urinated yet and is worried he won't have the sensation to go he says he did not have any incontinence prior to admission/surgery he is going on 2 weeks without moving his bowels, abdomen is a little distended again, he is worried that he won't be able to sense that he needs to have a BM, won't be able to push he is able to move his lower extremities, but his feet turn inwards when resting which is not normal for him no chest pain, no dyspnea, no fever/chills reviewed labs, WBC 12k, Hb 13, Cr 1.0, K 4.2 Review of Systems Review of Systems: All systems reviewed & are unremarkable except as noted in Subjective Physical Exam Constitutional: well developed and well nourished; no acute distress Neck: trachea midline, no thyromegaly Respiratory: normal respiratory effort, lungs clear to auscultation Cardiovascular: Rate/Rhythm: regular rhythm and + tachycardic Heart Sounds: normal S1 and normal S2; no murmur Vessels: no JVD Extremities: normal capillary refill; no edema Gastrointestinal (Abdomen): normal bowel sounds, soft, nontender, no hepatosplenomegaly Skin: no rashes, warm and dry Neurologic: moves all extremities and awake; + abnormal touch/pain/proprioception (no sensation in buttocks, pelvis) and no focal motor deficits Speech / Cognition: normal speech Psychiatric: A+Ox3, euthymic affect Lymphatic: no cervical or axillary lymphadenopathy Results & Data Results & Data ([facility]) Vital Signs (Past 12 Hours) Vital Signs Temp Pulse Pulse Pulse Resp BP BP 01/19/21 11:45 36.9 C 105 H 18 137/88 01/19/21 07:40 37 C 101 H 20 138/82 01/19/21 07:15 108 H 01/19/21 06:20 36.6 C 96 H 18 123/81 01/19/21 04:20 36.5 C 103 H 18 126/89 Pulse Ox 01/19/21 11:45 92 01/19/21 07:40 96 01/19/21 07:15 01/19/21 06:20 91 01/19/21 04:20 94 Laboratory Results Laboratory Results - last 24 hr 01/18/21 01/18/21 01/18/21 15:20 16:42 20:49 WBC RBC Hgb Hct MCV MCH MCHC RDW Std Deviation RDW Coeff of Radha Plt Count MPV Immature Gran % (Auto) Neut % (Auto) Lymph % (Auto) [place] % (Auto) Eos % (Auto) Baso % (Auto) Neut # (Auto) Lymph # (Auto) [place] # (Auto) Eos # (Auto) Baso # (Auto) Immature Gran # (Auto) Sodium Potassium Chloride Carbon Dioxide Anion Gap BUN Creatinine Est Cr Clr Drug Dosing Est GFR ( Amer) Est GFR (Non-Af Amer) BUN/Creatinine Ratio Glucose POC Glucose 140 H 188 H 199 H Calcium 01/19/21 01/19/21 01/19/21 05:41 05:41 07:54 WBC 12.25 H RBC 4.33 L Hgb 13.3 L Hct 37.7 L MCV 87.1 MCH 30.7 MCHC 35.3 RDW Std Deviation 39.8 RDW Coeff of Radha 12.3 Plt Count 250 MPV 11.4 H Immature Gran % (Auto) 0.2 Neut % (Auto) 75.3 Lymph % (Auto) 12.7 [place] % (Auto) 11.8 Eos % (Auto) 0.0 Baso % (Auto) 0.0 Neut # (Auto) 9.23 H Lymph # (Auto) 1.55 [place] # (Auto) 1.45 H Eos # (Auto) 0.00 Baso # (Auto) 0.00 Immature Gran # (Auto) 0.02 Sodium 135 L Potassium 4.2 Chloride 100 Carbon Dioxide 32 Anion Gap 3.0 BUN 26 H Creatinine 1.09 Est Cr Clr Drug Dosing 81.5 Est GFR ( Amer) 79.8 Est GFR (Non-Af Amer) 68.9 BUN/Creatinine Ratio 24.1 H Glucose 148 H POC Glucose 197 H Calcium 8.7 01/19/21 11:49 WBC RBC Hgb Hct MCV MCH MCHC RDW Std Deviation RDW Coeff of Radha Plt Count MPV Immature Gran % (Auto) Neut % (Auto) Lymph % (Auto) [place] % (Auto) Eos % (Auto) Baso % (Auto) Neut # (Auto) Lymph # (Auto) [place] # (Auto) Eos # (Auto) Baso # (Auto) Immature Gran # (Auto) Sodium Potassium Chloride Carbon Dioxide Anion Gap BUN Creatinine Est Cr Clr Drug Dosing Est GFR ( Amer) Est GFR (Non-Af Amer) BUN/Creatinine Ratio Glucose POC Glucose 159 H Calcium Medications Administered Current Inpatient Medications Acetaminophen (Acetaminophen 500 Mg Tab) 1,000 mg PO Q8H PRN PRN Reason: MILD Pain Scale 1,2,3 & Pre PT Stop: 02/17/21 16:39 Al Hydrox/Mg Hydrox/Simethicone (Aluminum/Magnesium Susp 30 Ml Udc) 30 ml PO Q6H PRN PRN Reason: Dyspepsia Stop: 02/17/21 16:39 Atorvastatin Calcium (Atorvastatin 40 Mg Tab) 40 mg PO DAILY NOAH Stop: 02/17/21 08:59 Last Admin: 01/19/21 08:34 Dose: 40 mg Documented by: Bisacodyl (Bisacodyl 10 Mg Supp) 10 mg NM DAILY PRN PRN Reason: Constipation Stop: 02/17/21 16:39 Dextrose (Dextrose 50% 50 Ml Syringe) 25 - 50 ml IV UD PRN; Protocol PRN Reason: Hypoglycemia Protocol Stop: 02/16/21 23:14 Diphenhydramine HCl (Diphenhydramine Capsule 25 Mg Cap) 25 mg PO Q6H PRN PRN Reason: Allergic Rhinitis/Insomnia Stop: 02/17/21 16:39 Famotidine (Famotidine 40 Mg Tablet) 40 mg PO HS NOAH Stop: 02/17/21 20:59 Last Admin: 01/18/21 20:51 Dose: 40 mg Documented by: Famotidine (Famotidine 20 Mg Tab) 20 mg PO Q12H PRN PRN Reason: Dyspepsia Stop: 02/17/21 16:39 Gabapentin (Gabapentin 300 Mg Cap) 300 mg PO BID NOAH Stop: 02/16/21 22:52 Last Admin: 01/19/21 08:34 Dose: 300 mg Documented by: Glucagon (Glucagon For Inj 1 Mg Vial) 1 mg SQ UD PRN; Protocol PRN Reason: Hypoglycemia Protocol Stop: 02/16/21 23:14 Glucose (Glucose 40% Gel 15 Gm Tube) 15 - 30 gm PO UD PRN; Protocol PRN Reason: Hypoglycemia Protocol Stop: 02/16/21 23:14 Glucose (Glucose 10 Tabs/Tube) 4 - 8 tabs PO UD PRN; Protocol PRN Reason: Hypoglycemia Protocol Stop: 02/16/21 23:14 Hydromorphone HCl (Hydromorphone Inj 0.5 Mg/0.5 Ml Syr) 0.5 mg IV Q3H PRN PRN Reason: MOD pain (scale 4-6) & Pre PT Stop: 02/01/21 16:39 Hydromorphone HCl (Hydromorphone Inj 1 Mg/Ml Syringe) 1 mg IV Q3H PRN PRN Reason: severe pain (scale 7-10) Stop: 02/01/21 16:39 Last Admin: 01/18/21 17:04 Dose: 1 mg Documented by: Hydroxyzine HCl (Hydroxyzine Hcl 25 Mg Tab) 25 mg PO Q8H PRN PRN Reason: Anxiety Stop: 02/17/21 16:39 Acetaminophen (Ofirmev) 1,000 mg in 100 mls @ 400 mls/hr IV Q8H PRN PRN Reason: MILD Pain Rating 1,2,3 Stop: 01/19/21 16:39 Promethazine HCl 12.5 mg/ (Sodium Chloride) 50.5 mls @ 204 mls/hr IV Q6H PRN PRN Reason: Nausea &/or Vomiting Stop: 02/17/21 16:39 Lorazepam (Ativan) 0.5 mg in 1 mls @ 0.5 mls/min IV Q8H PRN PRN Reason: Sedation/Anxiety Stop: 02/17/21 16:39 Influenza Virus Vaccine Quadrival (Do Not Administer Flu Vaccine) 1 ea N/A PRN PRN PRN Reason: Notification Stop: 02/17/21 16:39 Insulin Aspart (Insulin Aspart 100 Units/Ml 3 Ml Pen) 0 units SC [facility] Stop: 02/17/21 20:59 Last Admin: 01/19/21 12:11 Dose: 13 units Documented by: Levothyroxine Sodium (Levothyroxine Sodium 100 Mcg Tablet) 100 mcg PO DAILYBB [facility] Stop: 02/17/21 06:29 Last Admin: 01/19/21 06:22 Dose: 100 mcg Documented by: Lorazepam (Lorazepam 0.5 Mg Tab) 0.5 mg PO Q8H PRN PRN Reason: Sedation/Anxiety Stop: 02/17/21 16:39 Magnesium Hydroxide (Magnesium Hydroxide Susp 30 Ml Udc) 30 ml PO DAILY PRN PRN Reason: Constipation Stop: 02/17/21 16:39 Metoclopramide HCl (Metoclopramide Hcl Inj 5 Mg/Ml 2 Ml Vial) 10 mg IV Q6H PRN PRN Reason: Nausea &/or Vomiting Stop: 02/17/21 16:39 Metoprolol Tartrate (Metoprolol Tartrate 1 Mg/Ml Vial) 5 mg IV Q6 PRN PRN Reason: Blood Pressure - High Stop: 02/17/21 16:39 Miscellaneous (Carbohydrates For Hypoglycemia ) 15 - 30 gm PO UD PRN PRN Reason: Hypoglycemia Treatment Stop: 02/16/21 23:14 Miscellaneous Information (Pharmacy Glycemic Mgmt Consult) 1 ea N/A UD PRN PRN Reason: Consult Stop: 02/16/21 23:04 Naloxone HCl (Naloxone Hcl 0.4 Mg/1 Ml Vial/Carp) 0.1 mg IV Q5M PRN; Protocol PRN Reason: Oversedation/Resp Depression Stop: 02/17/21 16:39 Ondansetron HCl (Ondansetron Inj 2 Mg/Ml 2 Ml Vial) 4 mg IV Q6H PRN PRN Reason: Nausea &/or Vomiting Stop: 02/17/21 16:39 Ondansetron HCl (Ondansetron 4 Mg Od Tab) 4 mg PO Q6H PRN PRN Reason: Nausea Stop: 02/17/21 16:39 Oxycodone HCl (Oxycodone Hcl Ir 5 Mg Tab (Immediate Release)) 5 - 10 mg PO Q4H PRN PRN Reason: Moderate-Severe Pain & Pre PT Stop: 02/01/21 16:39 Last Admin: 01/19/21 04:48 Dose: 5 mg Documented by: Pantoprazole Sodium (Pantoprazole 40 Mg Tab) 40 mg PO BID NOAH Stop: 02/16/21 22:44 Last Admin: 01/19/21 08:34 Dose: 40 mg Documented by: Pneumococcal Polyvalent Vaccine (Do Not Administer Pneumococcal Vaccine) 1 ea N/A PRN PRN PRN Reason: Notification Stop: 02/17/21 16:39 Polyethylene Glycol (Polyethylene (Miralax) 17 Gm Pack) 17 gm PO DAILY PRN PRN Reason: Constipation Stop: 02/16/21 22:52 Polyethylene Glycol (Polyethylene (Miralax) 17 Gm Pack) 17 gm PO Q6 NOAH Stop: 02/18/21 05:59 Last Admin: 01/19/21 12:11 Dose: 17 gm Documented by: Senna/Docusate Sodium (Docusate Sodium/Senna 50/8.6mg Tab) 2 tab PO HS NOAH Stop: 02/17/21 20:59 Last Admin: 01/18/21 20:51 Dose: 2 tab Documented by: Sodium Biphosphate/Sodium Phosphate (Sod Phosphate/Sod Biphosphate Enema 132 Ml Btl) 132 ml NM ONE PRN PRN Reason: Constipation Stop: 02/17/21 16:39 Tramadol HCl (Tramadol Hcl 50 Mg Tablet) 50 - 100 mg PO Q4H PRN PRN Reason: Moderate-Severe Pain & Pre PT Stop: 02/17/21 16:39 Last Admin: 01/19/21 00:33 Dose: 50 mg Documented by: PG Care Time/CCT Total # of Minutes Spent Total Time Spent with Patient: Total time spent is greater than 50% in coordination of care (as documented) at patient's floor/unit and/or counseling patient: Coding Level of Care Code 38526 Subseq Hosp Care Lvl 2 Diagnoses Lumbar disc herniation with radiculopathy M51.16 Hypertension I10 GERD (gastroesophageal reflux disease) K21.9 Hypothyroidism E03.9 Dyslipidemia (high LDL; low HDL) E78.5 Diabetes E11.9 Sinus tachycardia R00.0
--- NOTE | 2021-01-19 15:51 | Orthopedic Progress Note ---
Date of Service January 19, 2021 Assessment & Plan (1) Lumbar disc herniation with radiculopathy: POD 1 s/p #1 lumbar decompression bilateral medial facetectomies and foraminotomies L3-4 and L4-5 per #2 posterior spinal fusion L4-5 per #3 placement posterior instrumentation L4-5 per #4 interbody fusion L4-5. #5 placement peek cage 13 x 26 mm at L4-5. #6 placement locally harvested morselized autograft in the posterior lateral gutters. #7 placement infuse collagen sponge, master graft in the posterior gutters and I factor and interbody space. Case discussed with Dr. Eckert Bowel regimen Pain management as written. DVT prophylaxis - SCD's / HANK's PT/OT protocol - WBAT as able Admission and Anticipated Discharge Date Admission Date: January 17, 2021 Subjective POD 1 Pt sitting up in bed. Awake, alert. Having some lower back pain today. Pain medications helping. States that he is having numbness in the groin/perianal area. Otherwise, he states sensation is intact down the LE's. He feels that the strength in his legs is weaker. No BM yet and has been over a week since his last one. States that his normal routine is every 5 to 6 days. He feels he is getting tighter in the abdomen. Denies N/V. Passing a little bit of flatus. Nursing staff states hewitt removed today. Physical Exam Physical Exam: Dressings intact with drain in place. Sensation intact of the LE's but DF is weak bilaterally. PF is a bit stronger. Groin and perianal numbness. HEATH drainage 20ml this AM but appears to have a bit more than that in the collection unit post PT session. Results & Data ([facility]) Vital Signs (Past 12 Hours) Vital Signs Temp Pulse Pulse Pulse Resp BP BP 01/19/21 15:16 107 H 01/19/21 15:00 37.5 C 99 H 18 144/82 H 01/19/21 11:45 36.9 C 105 H 18 137/88 01/19/21 07:40 37 C 101 H 20 138/82 01/19/21 07:15 108 H 01/19/21 06:20 36.6 C 96 H 18 123/81 01/19/21 04:20 36.5 C 103 H 18 126/89 Pulse Ox 01/19/21 15:16 01/19/21 15:00 93 01/19/21 11:45 92 01/19/21 07:40 96 01/19/21 07:15 01/19/21 06:20 91 01/19/21 04:20 94
[2021-01-19] MEDS: FAMOTIDINE 40 MG TABLET PO SCH (20:40)
[2021-01-19] MEDS: DOCUSATE SODIUM/SENNA 50/8.6MG TAB PO SCH (20:41)
[2021-01-19] MEDS ORDERED: ONDANSETRON INJ 2 MG/ML 2 ML VIAL IV STA (21:05)
[2021-01-19] MEDS ORDERED: MELATONIN 3 MG TAB PO PRN (21:05)
[2021-01-20] MEDS: POLYETHYLENE (MIRALAX) 17 GM PACK PO SCH ×4 (00:05→17:32)
[2021-01-20] MEDS: oxyCODONE HCL IR 5 MG TAB (IMMEDIATE RELEASE) PO PRN (03:07)
[2021-01-20] MEDS: LEVOTHYROXINE SODIUM 100 MCG TABLET PO SCH (05:53)
[2021-01-20] MEDS: INSULIN ASPART 100 UNITS/ML 3 ML PEN SC SCH ×4 (08:50→20:46)
[2021-01-20] MEDS: ATORVASTATIN 40 MG TAB PO SCH (08:52)
[2021-01-20] MEDS: PANTOprazole 40 MG TAB PO SCH ×2 (08:52→20:45)
[2021-01-20] MEDS: GABAPENTIN 300 MG CAP PO SCH ×2 (08:52→20:45)
--- NOTE | 2021-01-20 10:15 | Pharmacy Report ---
Pharmacy Glycemic Short Note 2 - Date of Service January 20, 2021 - Glycemic Short BSG Results (Last 24 hours): 01/19/21 01/19/21 01/19/21 11:49 16:57 20:08 POC Glucose 159 H 89 136 H 01/20/21 07:35 POC Glucose 203 H OUTPATIENT ANTIDIABETIC REGIMEN: * metformin, glimepiride * A1c 7.7% ASSESSMENT: 01/20: * Pt has received 47 units of insulin over the past 24hrs * 10 units of basal with NPH * 37 units of bolus with NovoLog * BSGs [phone] mg/dl * AM fasting BSG is elevated this morning at 203 mg/dl most likely d/t basal insulin deficiency. Pt received 40 units on 01/18 and only 10 units yesterday. Will increase basal insulin to 20 units and change to Lantus as 24 hr insulin is most likely needed based on the HS to AM BSG rise of 136 (@ HS) to 203 (AM fasting). * Will loosen CF/CR since basal insulin increasing and regimen is heavily weighted towards prandial insulin. Pos-prandial BSGs trending downwards with current parameters. 01/18: * 70 year old with lumbar disc herniation, plan for OR today. * Type 2 diabetic managed on orals at home. Started dexamethasone * Fasting BSG elevated this AM 217 mg/dL due to steroids last night given. Plan to start NPH BID to help with steroid coverage. Given 20 units x 1 this AM and will start scale for evening dosing. * Will receive steroids x 3 doses and then stop per order PLAN FOR INPATIENT GLYCEMIC CONTROL: * Hold outpatient oral diabetes medications * Basal insulin * DC NPH (no longer on steroids) * Change to Lantus (24hr insulin) 20 units SQ daily in AM - will titrate based on BSG trends. * Bolus insulin: loosen parameters * NovoLog per scale ACHS or Q6hrs while NPO * Goal Range: Low 110 mg/dL - High 140 mg/dL * Correction Factor: 20 mg/dL/unit * Nutritional / Prandial insulin per carb ratio of 1 unit per 6 grams CHO consumed PLAN FOR DISCHARGE: * A1c is in goal range at 7.7% on 01/18/21 * No changes needed to outpatient regimen.
[2021-01-20] MEDS: INSULIN GLARGINE SOLOSTAR 100 UNITS/ML 3 ML PEN SC SCH (10:16)
--- NOTE | 2021-01-20 10:21 | Orthopedic Progress Note ---
Date of Service January 20, 2021 Assessment & Plan (1) Cauda equina syndrome: Admission and Anticipated Discharge Date Admission Date: January 17, 2021 At this time I have encouraged the patient to begin transfers to the chair and ideally begin walking with PT if possible. I suspect to be a candidate for rehab in the next few days. Subjective Patient's back and leg pain is markedly improved. He feels his sensation is also improved dramatically with the twice 24 hours. He still notes perineal numbness. He still requiring a Gray catheter. He has not had a bowel movement. Physical Exam Physical Exam: On exam he does have 4/5 plantar flexion dorsiflexion quadriceps bilaterally. Sensory is improved. He is sensation to cold and light touch. Perineal numbness persists. Results & Data ([facility]) Vital Signs (Past 12 Hours) Vital Signs Temp Pulse Pulse Resp BP Pulse Ox 01/20/21 07:00 37.2 C 100 H 20 156/80 H 92 01/20/21 03:00 37.1 C 108 H 20 146/89 H 92 01/20/21 01:17 97 H 01/19/21 22:54 37.1 C 104 H 20 158/76 H 93
[2021-01-20] MEDS: dexAMETHasone 8 MG in SYRINGE 0 ML IV SCH (11:43)
[2021-01-20] MEDS ORDERED: bisacodyL 10 MG SUPP PR STA (15:05)
--- NOTE | 2021-01-20 15:18 | Hospitalist Progress Note ---
Date of Service January 20, 2021 Assessment & Plan (1) Lumbar disc herniation with radiculopathy: Admission Date: 70 yo M w/ pMHx. of HTN, HLD, OA, gout, DM, reflux and testicular cancer presents with 6 days of progressively worsening leg pain and numbness Leg pain, with lumbar disc herniation and concern for cauda equina on MRI L spine 6 days of progressive symptoms patient evaluated by Dr. Eckert and recommendation to optimize for surgery procedure on 01/18: #1 lumbar decompression bilateral medial facetectomies and foraminotomies L3-4 and L4-5 per #2 posterior spinal fusion L4-5 per #3 placement posterior instrumentation L4-5 per #4 interbody fusion L4-5. #5 placement peek cage 13 x 26 mm at L4-5. #6 placement locally harvested morselized autograft in the posterior lateral gutters. #7 placement infuse collagen sponge, master graft in the posterior gutters and I factor and interbody space. POD #2, participating in therapy but cannot stand up, sitting up made him nauseated continues with decreased sensation in groin and perianal region, can move lower extremities better today will get PT/OT, anticipate him needing acute rehabilitation still with sinus tachycardia but only in 100's Urinary retention hewitt removed 01/19 per protocol, has not been able to void since then required straight cath twice, bladder scanned for 800cc, overflow incontinence, no sensation of needing to void placed hewitt on 01/20, 1000cc out immediately likely that the disc herniation, cauda equina syndrome caused some damage to nerves innervating bladder could take some time to resolve, would keep hewitt for a week, see if he gains sensation in groin can follow up with urology as outpatient if he still cannot void Sinus tachycardia likely 2/2 pain EKG with lateral flattening - neg troponin - continue tele for now Constipation LBM 2 weeks ago!! still no flatus, no BM, does not have great sensation in anus/rectum will check KUB, if no obstruction then try dulcolax suppository to stimulate movement eating okay, no vomiting, taking Miralax Reflux - continue Famotidine and Omeprazole DM - holding Metformin Novolog SS diabetic diet now that he can eat, monitor for hypoglycemia Code: full (2) Hypertension: (3) GERD (gastroesophageal reflux disease): (4) Hypothyroidism: (5) Dyslipidemia (high LDL; low HDL): (6) Diabetes: (7) Sinus tachycardia: (8) Urinary retention: (9) Constipation: Admission and Anticipated Discharge Date Admission Date: January 17, 2021 Subjective patient could not void after hewitt out yesterday, required straight cath twice this afternoon was bladder scanned for 800cc, he had some overflow incontinence when he coughed, no sensation of needing to void ordered RN to place hewitt, likely has residual neurogenic bladder, keep hewitt for a few days no flatus or BM either, going on two weeks, no nausea though, eating well, will get KUB says he does not have sensation in rectum, but willing to try a suppository no labs today, he is hypertensive, but BP will be normal at times, continue to watch for now he says he has more feeling in thighs, still has less sensation below knees and no sensation bottom of feet he sat up with therapy but felt nauseated, was not able to stand up no dyspnea, no chest pain, no fever/chills Review of Systems Review of Systems: All systems reviewed & are unremarkable except as noted in Subjective Physical Exam Constitutional: well developed and well nourished; no acute distress Neck: trachea midline, no thyromegaly Respiratory: normal respiratory effort, lungs clear to auscultation Cardiovascular: Rate/Rhythm: regular rhythm and + tachycardic Heart Sounds: normal S1 and normal S2; no murmur Vessels: no JVD Extremities: normal capillary refill; no edema Gastrointestinal (Abdomen): Inspection/Auscultation: + abdomen distended and + hypoactive bowel sounds Percussion/Palpation: + tympanic to percussion and + abdomen firm; abdomen nontender Skin: no rashes, warm and dry Neurologic: moves all extremities and awake; + abnormal touch/pain/proprioception (no sensation in buttocks, pelvis) and no focal motor deficits Speech / Cognition: normal speech Psychiatric: A+Ox3, euthymic affect Lymphatic: no cervical or axillary lymphadenopathy Results & Data Results & Data ([facility]) Vital Signs (Past 12 Hours) Vital Signs Temp Pulse Pulse Pulse Resp BP BP 01/20/21 14:53 37.0 C 105 H 20 161/102 H 159/98 H 01/20/21 11:30 37.2 C 103 H 19 148/98 H 01/20/21 07:00 37.2 C 100 H 20 156/80 H Pulse Ox 01/20/21 14:53 91 01/20/21 11:30 93 01/20/21 07:00 92 Laboratory Results Laboratory Results - last 24 hr 01/19/21 01/19/21 01/20/21 16:57 20:08 07:35 POC Glucose 89 136 H 203 H 01/20/21 11:49 POC Glucose 152 H Medications Administered Current Inpatient Medications Acetaminophen (Acetaminophen 500 Mg Tab) 1,000 mg PO Q8H PRN PRN Reason: MILD Pain Scale 1,2,3 & Pre PT Stop: 02/17/21 16:39 Al Hydrox/Mg Hydrox/Simethicone (Aluminum/Magnesium Susp 30 Ml Udc) 30 ml PO Q6H PRN PRN Reason: Dyspepsia Stop: 02/17/21 16:39 Atorvastatin Calcium (Atorvastatin 40 Mg Tab) 40 mg PO DAILY NOAH Stop: 02/17/21 08:59 Last Admin: 01/20/21 08:52 Dose: 40 mg Documented by: Bisacodyl (Bisacodyl 10 Mg Supp) 10 mg NJ DAILY PRN PRN Reason: Constipation Stop: 02/17/21 16:39 Bisacodyl (Bisacodyl 10 Mg Supp) 10 mg NJ NOW STA Stop: 01/20/21 15:06 Dextrose (Dextrose 50% 50 Ml Syringe) 25 - 50 ml IV UD PRN; Protocol PRN Reason: Hypoglycemia Protocol Stop: 02/16/21 23:14 Diphenhydramine HCl (Diphenhydramine Capsule 25 Mg Cap) 25 mg PO Q6H PRN PRN Reason: Allergic Rhinitis/Insomnia Stop: 02/17/21 16:39 Last Admin: 01/19/21 20:35 Dose: 25 mg Documented by: Famotidine (Famotidine 40 Mg Tablet) 40 mg PO HS NOAH Stop: 02/17/21 20:59 Last Admin: 01/19/21 20:40 Dose: 40 mg Documented by: Famotidine (Famotidine 20 Mg Tab) 20 mg PO Q12H PRN PRN Reason: Dyspepsia Stop: 02/17/21 16:39 Gabapentin (Gabapentin 300 Mg Cap) 300 mg PO BID NOAH Stop: 02/16/21 22:52 Last Admin: 01/20/21 08:52 Dose: 300 mg Documented by: Glucagon (Glucagon For Inj 1 Mg Vial) 1 mg SQ UD PRN; Protocol PRN Reason: Hypoglycemia Protocol Stop: 02/16/21 23:14 Glucose (Glucose 40% Gel 15 Gm Tube) 15 - 30 gm PO UD PRN; Protocol PRN Reason: Hypoglycemia Protocol Stop: 02/16/21 23:14 Glucose (Glucose 10 Tabs/Tube) 4 - 8 tabs PO UD PRN; Protocol PRN Reason: Hypoglycemia Protocol Stop: 02/16/21 23:14 Hydromorphone HCl (Hydromorphone Inj 0.5 Mg/0.5 Ml Syr) 0.5 mg IV Q3H PRN PRN Reason: MOD pain (scale 4-6) & Pre PT Stop: 02/01/21 16:39 Last Admin: 01/20/21 12:15 Dose: 0.5 mg Documented by: Hydromorphone HCl (Hydromorphone Inj 1 Mg/Ml Syringe) 1 mg IV Q3H PRN PRN Reason: severe pain (scale 7-10) Stop: 02/01/21 16:39 Last Admin: 01/18/21 17:04 Dose: 1 mg Documented by: Hydroxyzine HCl (Hydroxyzine Hcl 25 Mg Tab) 25 mg PO Q8H PRN PRN Reason: Anxiety Stop: 02/17/21 16:39 Promethazine HCl 12.5 mg/ (Sodium Chloride) 50.5 mls @ 204 mls/hr IV Q6H PRN PRN Reason: Nausea &/or Vomiting Stop: 02/17/21 16:39 Lorazepam (Ativan) 0.5 mg in 1 mls @ 0.5 mls/min IV Q8H PRN PRN Reason: Sedation/Anxiety Stop: 02/17/21 16:39 Dexamethasone 8 mg/ Syringe 2 mls @ 1 mls/min IV DAILY NOAH Stop: 02/19/21 10:29 Last Admin: 01/20/21 11:43 Dose: 1 mls/min Documented by: Influenza Virus Vaccine Quadrival (Do Not Administer Flu Vaccine) 1 ea N/A PRN PRN PRN Reason: Notification Stop: 02/17/21 16:39 Insulin Aspart (Insulin Aspart 100 Units/Ml 3 Ml Pen) 0 units SC ACHS NOAH Stop: 02/17/21 20:59 Last Admin: 01/20/21 12:20 Dose: 4 units Documented by: Insulin Glargine (Insulin Glargine Solostar 100 Units/Ml 3 Ml Pen) 20 units SC DAILY [facility] Stop: 02/19/21 08:59 Last Admin: 01/20/21 10:16 Dose: 20 units Documented by: Levothyroxine Sodium (Levothyroxine Sodium 100 Mcg Tablet) 100 mcg PO DAILYBB [facility] Stop: 02/17/21 06:29 Last Admin: 01/20/21 05:53 Dose: 100 mcg Documented by: Lorazepam (Lorazepam 0.5 Mg Tab) 0.5 mg PO Q8H PRN PRN Reason: Sedation/Anxiety Stop: 02/17/21 16:39 Magnesium Hydroxide (Magnesium Hydroxide Susp 30 Ml Udc) 30 ml PO DAILY PRN PRN Reason: Constipation Stop: 02/17/21 16:39 Last Admin: 01/20/21 08:50 Dose: 30 ml Documented by: Melatonin (Melatonin 3 Mg Tab) 3 mg PO HS PRN PRN Reason: Sleep Stop: 02/18/21 21:04 Metoclopramide HCl (Metoclopramide Hcl Inj 5 Mg/Ml 2 Ml Vial) 10 mg IV Q6H PRN PRN Reason: Nausea &/or Vomiting Stop: 02/17/21 16:39 Metoprolol Tartrate (Metoprolol Tartrate 1 Mg/Ml Vial) 5 mg IV Q6 PRN PRN Reason: Blood Pressure - High Stop: 02/17/21 16:39 Miscellaneous (Carbohydrates For Hypoglycemia ) 15 - 30 gm PO UD PRN PRN Reason: Hypoglycemia Treatment Stop: 02/16/21 23:14 Miscellaneous Information (Pharmacy Glycemic Mgmt Consult) 1 ea N/A UD PRN PRN Reason: Consult Stop: 02/16/21 23:04 Naloxone HCl (Naloxone Hcl 0.4 Mg/1 Ml Vial/Carp) 0.1 mg IV Q5M PRN; Protocol PRN Reason: Oversedation/Resp Depression Stop: 02/17/21 16:39 Ondansetron HCl (Ondansetron Inj 2 Mg/Ml 2 Ml Vial) 4 mg IV Q6H PRN PRN Reason: Nausea &/or Vomiting Stop: 02/17/21 16:39 Last Admin: 01/20/21 12:17 Dose: 4 mg Documented by: Ondansetron HCl (Ondansetron 4 Mg Od Tab) 4 mg PO Q6H PRN PRN Reason: Nausea Stop: 02/17/21 16:39 Oxycodone HCl (Oxycodone Hcl Ir 5 Mg Tab (Immediate Release)) 5 - 10 mg PO Q4H PRN PRN Reason: Moderate-Severe Pain & Pre PT Stop: 02/01/21 16:39 Last Admin: 01/20/21 03:07 Dose: 10 mg Documented by: Pantoprazole Sodium (Pantoprazole 40 Mg Tab) 40 mg PO BID [facility] Stop: 02/16/21 22:44 Last Admin: 01/20/21 08:52 Dose: 40 mg Documented by: Pneumococcal Polyvalent Vaccine (Do Not Administer Pneumococcal Vaccine) 1 ea N/A PRN PRN PRN Reason: Notification Stop: 02/17/21 16:39 Polyethylene Glycol (Polyethylene (Miralax) 17 Gm Pack) 17 gm PO DAILY PRN PRN Reason: Constipation Stop: 02/16/21 22:52 Polyethylene Glycol (Polyethylene (Miralax) 17 Gm Pack) 17 gm PO Q6 [facility] Stop: 02/18/21 05:59 Last Admin: 01/20/21 12:19 Dose: 17 gm Documented by: Senna/Docusate Sodium (Docusate Sodium/Senna 50/8.6mg Tab) 2 tab PO HS [facility] Stop: 02/17/21 20:59 Last Admin: 01/19/21 20:41 Dose: 2 tab Documented by: Sodium Biphosphate/Sodium Phosphate (Sod Phosphate/Sod Biphosphate Enema 132 Ml Btl) 132 ml NJ ONE PRN PRN Reason: Constipation Stop: 02/17/21 16:39 Tramadol HCl (Tramadol Hcl 50 Mg Tablet) 50 - 100 mg PO Q4H PRN PRN Reason: Moderate-Severe Pain & Pre PT Stop: 02/17/21 16:39 Last Admin: 01/19/21 00:33 Dose: 50 mg Documented by: PG Care Time/CCT Total # of Minutes Spent Total Time Spent with Patient: Total time spent is greater than 50% in coordination of care (as documented) at patient's floor/unit and/or counseling patient: Coding Level of Care Code 63050 Subseq Hosp Care Lvl 3 Diagnoses Lumbar disc herniation with radiculopathy M51.16 Hypertension I10 GERD (gastroesophageal reflux disease) K21.9 Hypothyroidism E03.9 Dyslipidemia (high LDL; low HDL) E78.5 Diabetes E11.9 Sinus tachycardia R00.0 Urinary retention R33.9 Constipation K59.00
--- NOTE | 2021-01-20 17:20 | XRay Report ---
KUB HISTORY: Acute generalized abdominal pain with constipation and abdominal distention constipated, di stended COMPARISON: MR lumbar spine 01/17/2021 FINDINGS: Nonobstructive bowel gas pattern. Nondilated air-filled loops of large and small bowel. No renal calculi. No ureteral calculi. No pneumoperitoneum or pneumatosis. Bilateral hip total joint ar throplasties. Posterior interbody beverley and screw fusion hardware with discectomy at L4-L5. Surgical dr suma murphy. No fracture. IMPRESSION: 1. Nonobstructive bowel gas pattern. 2. Nondilated air-filled loops of bowel may reflect a mild ileus. ACT 112: Negative or not required by law. The above report was generated using voice recognition software. It may contain grammatical, syntax o r spelling errors. Electronically signed by: Garrick Sullivan M.D. 01/20/2021 5:19 PM
[2021-01-20] MEDS: DOCUSATE SODIUM/SENNA 50/8.6MG TAB PO SCH (20:44)
[2021-01-20] MEDS: FAMOTIDINE 40 MG TABLET PO SCH (20:45)
[2021-01-21] MEDS: POLYETHYLENE (MIRALAX) 17 GM PACK PO SCH ×3 (01:26→21:17)
[2021-01-21] MEDS: LEVOTHYROXINE SODIUM 100 MCG TABLET PO SCH (05:54)
[2021-01-21] MEDS: dexAMETHasone 8 MG in SYRINGE 0 ML IV SCH (07:57)
[2021-01-21] MEDS: PANTOprazole 40 MG TAB PO SCH ×2 (07:58→21:17)
[2021-01-21] MEDS: GABAPENTIN 300 MG CAP PO SCH ×2 (07:58→21:16)
[2021-01-21] MEDS: ATORVASTATIN 40 MG TAB PO SCH (07:58)
[2021-01-21] MEDS: INSULIN ASPART 100 UNITS/ML 3 ML PEN SC SCH ×4 (07:59→21:18)
[2021-01-21] MEDS: INSULIN GLARGINE SOLOSTAR 100 UNITS/ML 3 ML PEN SC SCH (07:59)
[2021-01-21] MEDS: oxyCODONE HCL IR 5 MG TAB (IMMEDIATE RELEASE) PO PRN (08:02)
--- NOTE | 2021-01-21 09:08 | Orthopedic Progress Note ---
Date of Service January 21, 2021 Assessment & Plan (1) Cauda equina syndrome: We will continue with bedside physical therapy. Maintain Gray due to urinary retention with possible neurogenic bladder. Will need to follow-up with urology as an outpatient. My recommendation is that he, upon discharge from the hospital, go to an acute rehab such as [facility]. This is currently pending authorization. DC HEATH drain today or tomorrow depending on discharge. DVT prophylaxis is in the form of teds and SCDs. Continue with pain control. Admission and Anticipated Discharge Date Admission Date: January 17, 2021 Supervising Physician Co-Signing Physician Notes Dr. Young Eckert Subjective Patient is postoperative day 3 posterior lumbar decompression and fusion of L4- 5. He has numbness from the waist down bilateral lower extremities. Gray had to be reinserted yesterday due to multiple straight cath insertions. He believes he can feel when he is passing flatus. He is unable to stand. HEATH drain is intact. No radicular leg pain. Review of Systems Review of Systems: All systems reviewed & are unremarkable except as noted in HPI & below Physical Exam Physical Exam: He is lying in bed in no acute distress Alert and oriented x3 Gray catheter is intact along with HEATH drain lumbar spine 5/5 strength bilateral lower extremities Calves are soft bilaterally Constitutional: WD/WN, vitals as above Eyes: normal visual szymanski by confrontation ENMT: external ear and nose normal, oropharynx normal Neck: normal visual inspection Respiratory: normal respiratory effort Cardiovascular: Rate/Rhythm: regular rate Extremities: normal capillary refill Chest (Breasts): Chest: normal inspection of chest Gastrointestinal (Abdomen): Inspection/Auscultation: abdomen normal to inspection Musculoskeletal: Extremities: strength 5/5 throughout Skin: no rashes, warm and dry Neurologic: moves all extremities Psychiatric: A+Ox3, euthymic affect Eye Contact: good eye contact Results & Data ([facility]) Vital Signs (Past 12 Hours) Vital Signs Temp Pulse Pulse Resp BP Pulse Ox 01/21/21 07:52 36.3 C L 91 H 18 146/89 H 92 01/21/21 03:36 36.8 C 96 H 18 153/92 H 95 01/21/21 00:11 91 H 01/20/21 23:00 36.6 C 99 H 18 148/99 H 93
[2021-01-21 09:11] LABS: Hemoglobin 13.9 g/dL (14.0-18.0); Mean Corpuscular Hemoglobin 30.9 pg (25-34); Mean Corpuscular Hgb Conc 35.6 g/dL (32-36); Mean Corpuscular Volume 86.7 fL (80-100); Mean Platelet Volume 11.4 fL (7.4-10.4); Platelet Count 220 K/uL (130-400); RDW Standard Deviation 37.9 fL (36.4-46.3); White Blood Count 12.11 K/uL (4.8-10.8)
[2021-01-21 09:28] LABS: BUN Creatinine Ratio 24.3 (10-20); Calcium 9.2 mg/dl (8.5-10.1); Creatinine Clr Calc Pharmacy 91.1 ml/min; Est GFR (African American) 94.3; Est GFR (Non-African American) 81.3; Potassium 3.9 mmol/L (3.5-5.1)
[2021-01-21] MEDS: INSULIN HUMAN NPH SC SCH (10:25)
--- NOTE | 2021-01-21 12:09 | Pharmacy Report ---
Pharmacy Glycemic Short Note 2 - Date of Service January 21, 2021 - Glycemic Short BSG Results (Last 24 hours): 01/20/21 01/20/21 01/21/21 16:29 20:34 07:43 Glucose POC Glucose 204 H 226 H 183 H 01/21/21 01/21/21 08:41 11:40 Glucose 238 H POC Glucose 250 H OUTPATIENT ANTIDIABETIC REGIMEN: * metformin, glimepiride * A1c 7.7% ASSESSMENT: 01/21/21: * Pt has received 57 units of insulin over the past 24hrs * 20 units of basal with Lantus * 37 units of bolus with NovoLog * BSGs 152-250 mg/dl * Dexamethasone restarted 8mg IV daily yesterday, missed covering with NPH yesterday as dose was started late * Added NPH with Dexamethasone this AM to cover steroid effects * Tighten CF/CR 01/20: * Pt has received 47 units of insulin over the past 24hrs * 10 units of basal with NPH * 37 units of bolus with NovoLog * BSGs 515-071-32-136-203 mg/dl * AM fasting BSG is elevated this morning at 203 mg/dl most likely d/t basal insulin deficiency. Pt received 40 units on 01/18 and only 10 units yesterday. Will increase basal insulin to 20 units and change to Lantus as 24 hr insulin is most likely needed based on the HS to AM BSG rise of 136 (@ HS) to 203 (AM fasting). * Will loosen CF/CR since basal insulin increasing and regimen is heavily weighted towards prandial insulin. Pos-prandial BSGs trending downwards with current parameters. 01/18: * 70 year old with lumbar disc herniation, plan for OR today. * Type 2 diabetic managed on orals at home. Started dexamethasone * Fasting BSG elevated this AM 217 mg/dL due to steroids last night given. Plan to start NPH BID to help with steroid coverage. Given 20 units x 1 this AM and will start scale for evening dosing. * Will receive steroids x 3 doses and then stop per order PLAN FOR INPATIENT GLYCEMIC CONTROL: * Hold outpatient oral diabetes medications * Basal insulin * NPH 20 units SQ Daily with IV Dexamethasone * Lantus 20 units SQ QAM * Bolus insulin: * NovoLog per scale ACHS or Q6hrs while NPO * Goal Range: Low 110 mg/dL - High 140 mg/dL * TIGHTEN: Correction Factor: 15 mg/dL/unit * TIGHTEN: Nutritional / Prandial insulin per carb ratio of 1 unit per 5 grams CHO consumed PLAN FOR DISCHARGE: * A1c is in goal range at 7.7% on 01/18/21 * No changes needed to outpatient regimen.
--- NOTE | 2021-01-21 13:26 | Hospitalist Progress Note ---
Date of Service January 21, 2021 Assessment & Plan (1) Lumbar disc herniation with radiculopathy: Admission Date: 70 yo M w/ pMHx. of HTN, HLD, OA, gout, DM, reflux and testicular cancer presents with 6 days of progressively worsening leg pain and numbness Leg pain, with lumbar disc herniation and concern for cauda equina on MRI L spine 6 days of progressive symptoms patient evaluated by Dr. Eckert and recommendation to optimize for surgery procedure on 01/18: #1 lumbar decompression bilateral medial facetectomies and foraminotomies L3-4 and L4-5 per #2 posterior spinal fusion L4-5 per #3 placement posterior instrumentation L4-5 per #4 interbody fusion L4-5. #5 p lacement peek cage 13 x 26 mm at L4-5. #6 placement locally harvested morselized autograft in the posterior lateral gutters. #7 placement infuse collagen sponge, master graft in the posterior gutters and I factor and interbody space. POD #3, participating in therapy but cannot stand up, very weak continues with decreased sensation in groin and perianal region, can move lower extremities better past two days continue PT/OT, anticipate him needing acute rehabilitation for a while still with sinus tachycardia but only in 100's Urinary retention hewitt removed 01/19 per protocol, has not been able to void since then required straight cath twice, bladder scanned for 800cc, overflow incontinence, no sensation of needing to void placed hewitt on 01/20, 1000cc out immediately likely that the disc herniation, cauda equina syndrome caused some damage to nerves innervating bladder could take some time to resolve, would keep hewitt for a week, see if he gains sensation in groin can follow up with urology as outpatient if he still cannot void Sinus tachycardia likely 2/2 pain EKG with lateral flattening - neg troponin - continue tele for now Constipation LBM 2 weeks prior to admission KUB on 01/20 with ileus, non obstructive bowel pattern Dulcolax suppository on 01/20 produced some flatus and liquid stool no BM today, still has no sensation in rectum, cannot feel suppository when placed could not do enema as he cannot hold it in Reflux - continue Famotidine and Omeprazole DM - holding Metformin Novolog SS diabetic diet now that he can eat, monitor for hypoglycemia Code: full (2) Hypertension: (3) GERD (gastroesophageal reflux disease): (4) Hypothyroidism: (5) Dyslipidemia (high LDL; low HDL): (6) Diabetes: (7) Sinus tachycardia: (8) Urinary retention: (9) Constipation: Admission and Anticipated Discharge Date Admission Date: January 17, 2021 Subjective reviewed KUB from yesterday, had non-obstructive bowel pattern, possible ileus he passed some flatus and had liquid brown stool yesterday after Dulcolax suppository tried suppository again today, no success, he took Miralax he has a lot of bowel sounds today which is encouraging CBC and BMP stable, vitals stable, tolerating diet, breathing well tried to sit and then stand with therapy, still not doing well in terms of strength Dr. Eckert recommends [facility] and I agree, probably needs [facility] rehab Review of Systems Review of Systems: All systems reviewed & are unremarkable except as noted in Subjective Constitutional: no fever and no sweats Respiratory: no cough and no dyspnea Cardiovascular: no chest pain and no edema Gastrointestinal: + constipation; no abdominal pain, no nausea, no vomiting and no diarrhea/loose stools Genitourinary: + difficulty urinating Physical Exam Constitutional: well developed and well nourished; no acute distress Neck: trachea midline, no thyromegaly Respiratory: normal respiratory effort, lungs clear to auscultation Cardiovascular: Rate/Rhythm: regular rhythm and + tachycardic Heart Sounds: normal S1 and normal S2; no murmur Vessels: no JVD Extremities: normal capillary refill; no edema Gastrointestinal (Abdomen): Inspection/Auscultation: + abdomen distended and normal bowel sounds Percussion/Palpation: + tympanic to percussion and + abdomen firm; abdomen nontender Skin: no rashes, warm and dry Neurologic: moves all extremities and awake; + abnormal touch/pain/proprioception (no sensation in buttocks, pelvis) and no focal motor deficits Speech / Cognition: normal speech Psychiatric: A+Ox3, euthymic affect Lymphatic: no cervical or axillary lymphadenopathy Results & Data Results & Data ([facility]) Vital Signs (Past 12 Hours) Vital Signs Temp Pulse Resp BP Pulse Ox 01/21/21 11:34 36.5 C 98 H 18 159/87 H 90 01/21/21 07:52 36.3 C L 91 H 18 146/89 H 92 01/21/21 03:36 36.8 C 96 H 18 153/92 H 95 Laboratory Results Laboratory Results - last 24 hr 01/20/21 01/20/21 01/21/21 16:29 20:34 07:43 WBC RBC Hgb Hct MCV MCH MCHC RDW Std Deviation RDW Coeff of Radha Plt Count MPV Sodium Potassium Chloride Carbon Dioxide Anion Gap BUN Creatinine Est Cr Clr Drug Dosing Est GFR ( Amer) Est GFR (Non-Af Amer) BUN/Creatinine Ratio Glucose POC Glucose 204 H 226 H 183 H Calcium 01/21/21 01/21/21 01/21/21 08:41 08:41 11:40 WBC 12.11 H RBC 4.50 L Hgb 13.9 L Hct 39.0 L MCV 86.7 MCH 30.9 MCHC 35.6 RDW Std Deviation 37.9 RDW Coeff of Radha 12.0 Plt Count 220 MPV 11.4 H Sodium 132 L Potassium 3.9 Chloride 95 L Carbon Dioxide 30 Anion Gap 7.0 BUN 23 H Creatinine 0.95 Est Cr Clr Drug Dosing 91.1 Est GFR ( Amer) 94.3 Est GFR (Non-Af Amer) 81.3 BUN/Creatinine Ratio 24.3 H Glucose 238 H POC Glucose 250 H Calcium 9.2 Medications Administered Current Inpatient Medications Acetaminophen (Acetaminophen 500 Mg Tab) 1,000 mg PO Q8H PRN PRN Reason: MILD Pain Scale 1,2,3 & Pre PT Stop: 02/17/21 16:39 Al Hydrox/Mg Hydrox/Simethicone (Aluminum/Magnesium Susp 30 Ml Udc) 30 ml PO Q6H PRN PRN Reason: Dyspepsia Stop: 02/17/21 16:39 Atorvastatin Calcium (Atorvastatin 40 Mg Tab) 40 mg PO DAILY NOAH Stop: 02/17/21 08:59 Last Admin: 01/21/21 07:58 Dose: 40 mg Documented by: Bisacodyl (Bisacodyl 10 Mg Supp) 10 mg NM DAILY PRN PRN Reason: Constipation Stop: 02/17/21 16:39 Last Admin: 01/21/21 08:04 Dose: 10 mg Documented by: Dextrose (Dextrose 50% 50 Ml Syringe) 25 - 50 ml IV UD PRN; Protocol PRN Reason: Hypoglycemia Protocol Stop: 02/16/21 23:14 Diphenhydramine HCl (Diphenhydramine Capsule 25 Mg Cap) 25 mg PO Q6H PRN PRN Reason: Allergic Rhinitis/Insomnia Stop: 02/17/21 16:39 Last Admin: 01/19/21 20:35 Dose: 25 mg Documented by: Famotidine (Famotidine 40 Mg Tablet) 40 mg PO HS NOAH Stop: 02/17/21 20:59 Last Admin: 01/20/21 20:45 Dose: 40 mg Documented by: Famotidine (Famotidine 20 Mg Tab) 20 mg PO Q12H PRN PRN Reason: Dyspepsia Stop: 02/17/21 16:39 Gabapentin (Gabapentin 300 Mg Cap) 300 mg PO BID NOAH Stop: 02/16/21 22:52 Last Admin: 01/21/21 07:58 Dose: 300 mg Documented by: Glucagon (Glucagon For Inj 1 Mg Vial) 1 mg SQ UD PRN; Protocol PRN Reason: Hypoglycemia Protocol Stop: 02/16/21 23:14 Glucose (Glucose 40% Gel 15 Gm Tube) 15 - 30 gm PO UD PRN; Protocol PRN Reason: Hypoglycemia Protocol Stop: 02/16/21 23:14 Glucose (Glucose 10 Tabs/Tube) 4 - 8 tabs PO UD PRN; Protocol PRN Reason: Hypoglycemia Protocol Stop: 02/16/21 23:14 Hydromorphone HCl (Hydromorphone Inj 0.5 Mg/0.5 Ml Syr) 0.5 mg IV Q3H PRN PRN Reason: MOD pain (scale 4-6) & Pre PT Stop: 02/01/21 16:39 Last Admin: 01/20/21 12:15 Dose: 0.5 mg Documented by: Hydromorphone HCl (Hydromorphone Inj 1 Mg/Ml Syringe) 1 mg IV Q3H PRN PRN Reason: severe pain (scale 7-10) Stop: 02/01/21 16:39 Last Admin: 01/18/21 17:04 Dose: 1 mg Documented by: Hydroxyzine HCl (Hydroxyzine Hcl 25 Mg Tab) 25 mg PO Q8H PRN PRN Reason: Anxiety Stop: 02/17/21 16:39 Promethazine HCl 12.5 mg/ (Sodium Chloride) 50.5 mls @ 204 mls/hr IV Q6H PRN PRN Reason: Nausea &/or Vomiting Stop: 02/17/21 16:39 Lorazepam (Ativan) 0.5 mg in 1 mls @ 0.5 mls/min IV Q8H PRN PRN Reason: Sedation/Anxiety Stop: 02/17/21 16:39 Dexamethasone 8 mg/ Syringe 2 mls @ 1 mls/min IV DAILY [facility] Stop: 02/19/21 10:29 Last Admin: 01/21/21 07:57 Dose: 1 mls/min Documented by: Influenza Virus Vaccine Quadrival (Do Not Administer Flu Vaccine) 1 ea N/A PRN PRN PRN Reason: Notification Stop: 02/17/21 16:39 Insulin Aspart (Insulin Aspart 100 Units/Ml 3 Ml Pen) 0 units SC ACHS [facility] Stop: 02/17/21 20:59 Last Admin: 01/21/21 12:36 Dose: 20 units Documented by: Insulin Glargine (Insulin Glargine Solostar 100 Units/Ml 3 Ml Pen) 20 units SC DAILY [facility] Stop: 02/19/21 08:59 Last Admin: 01/21/21 07:59 Dose: 20 units Documented by: Insulin Human NPH (Insulin Human Nph) 20 units SC DAILY [facility]; Protocol Stop: 02/20/21 08:59 Last Admin: 01/21/21 10:25 Dose: 20 units Documented by: Levothyroxine Sodium (Levothyroxine Sodium 100 Mcg Tablet) 100 mcg PO DAILYBB [facility] Stop: 02/17/21 06:29 Last Admin: 01/21/21 05:54 Dose: 100 mcg Documented by: Lorazepam (Lorazepam 0.5 Mg Tab) 0.5 mg PO Q8H PRN PRN Reason: Sedation/Anxiety Stop: 02/17/21 16:39 Magnesium Hydroxide (Magnesium Hydroxide Susp 30 Ml Udc) 30 ml PO DAILY PRN PRN Reason: Constipation Stop: 02/17/21 16:39 Last Admin: 01/20/21 08:50 Dose: 30 ml Documented by: Melatonin (Melatonin 3 Mg Tab) 3 mg PO HS PRN PRN Reason: Sleep Stop: 02/18/21 21:04 Metoclopramide HCl (Metoclopramide Hcl Inj 5 Mg/Ml 2 Ml Vial) 10 mg IV Q6H PRN PRN Reason: Nausea &/or Vomiting Stop: 02/17/21 16:39 Metoprolol Tartrate (Metoprolol Tartrate 1 Mg/Ml Vial) 5 mg IV Q6 PRN PRN Reason: Blood Pressure - High Stop: 02/17/21 16:39 Miscellaneous (Carbohydrates For Hypoglycemia ) 15 - 30 gm PO UD PRN PRN Reason: Hypoglycemia Treatment Stop: 02/16/21 23:14 Miscellaneous Information (Pharmacy Glycemic Mgmt Consult) 1 ea N/A UD PRN PRN Reason: Consult Stop: 02/16/21 23:04 Naloxone HCl (Naloxone Hcl 0.4 Mg/1 Ml Vial/Carp) 0.1 mg IV Q5M PRN; Protocol PRN Reason: Oversedation/Resp Depression Stop: 02/17/21 16:39 Ondansetron HCl (Ondansetron Inj 2 Mg/Ml 2 Ml Vial) 4 mg IV Q6H PRN PRN Reason: Nausea &/or Vomiting Stop: 02/17/21 16:39 Last Admin: 01/20/21 12:17 Dose: 4 mg Documented by: Ondansetron HCl (Ondansetron 4 Mg Od Tab) 4 mg PO Q6H PRN PRN Reason: Nausea Stop: 02/17/21 16:39 Oxycodone HCl (Oxycodone Hcl Ir 5 Mg Tab (Immediate Release)) 5 - 10 mg PO Q4H PRN PRN Reason: Moderate-Severe Pain & Pre PT Stop: 02/01/21 16:39 Last Admin: 01/21/21 08:02 Dose: 10 mg Documented by: Pantoprazole Sodium (Pantoprazole 40 Mg Tab) 40 mg PO BID NOAH Stop: 02/16/21 22:44 Last Admin: 01/21/21 07:58 Dose: 40 mg Documented by: Pneumococcal Polyvalent Vaccine (Do Not Administer Pneumococcal Vaccine) 1 ea N/A PRN PRN PRN Reason: Notification Stop: 02/17/21 16:39 Polyethylene Glycol (Polyethylene (Miralax) 17 Gm Pack) 17 gm PO DAILY PRN PRN Reason: Constipation Stop: 02/16/21 22:52 Last Admin: 01/21/21 09:51 Dose: 17 gm Documented by: Senna/Docusate Sodium (Docusate Sodium/Senna 50/8.6mg Tab) 2 tab PO HS NOAH Stop: 02/17/21 20:59 Last Admin: 01/20/21 20:44 Dose: 2 tab Documented by: Sodium Biphosphate/Sodium Phosphate (Sod Phosphate/Sod Biphosphate Enema 132 Ml Btl) 132 ml NM ONE PRN PRN Reason: Constipation Stop: 02/17/21 16:39 Tramadol HCl (Tramadol Hcl 50 Mg Tablet) 50 - 100 mg PO Q4H PRN PRN Reason: Moderate-Severe Pain & Pre PT Stop: 02/17/21 16:39 Last Admin: 01/19/21 00:33 Dose: 50 mg Documented by: PG Care Time/CCT Total # of Minutes Spent Total Time Spent with Patient: Total time spent is greater than 50% in coordination of care (as documented) at patient's floor/unit and/or counseling patient: Coding Level of Care Code 26410 Subseq Hosp Care Lvl 2 Diagnoses Lumbar disc herniation with radiculopathy M51.16 Hypertension I10 GERD (gastroesophageal reflux disease) K21.9 Hypothyroidism E03.9 Dyslipidemia (high LDL; low HDL) E78.5 Diabetes E11.9 Sinus tachycardia R00.0 Urinary retention R33.9 Constipation K59.00
[2021-01-21] MEDS: DOCUSATE SODIUM/SENNA 50/8.6MG TAB PO SCH (21:16)
[2021-01-21] MEDS: FAMOTIDINE 40 MG TABLET PO SCH (21:16)
[2021-01-22] MEDS: LEVOTHYROXINE SODIUM 100 MCG TABLET PO SCH (06:05)
[2021-01-22] MEDS: oxyCODONE HCL IR 5 MG TAB (IMMEDIATE RELEASE) PO PRN ×2 (06:05→17:11)
[2021-01-22] MEDS: traMADol HCL 50 MG TABLET PO PRN (07:33)
[2021-01-22] MEDS: ATORVASTATIN 40 MG TAB PO SCH (07:51)
[2021-01-22] MEDS: PANTOprazole 40 MG TAB PO SCH ×2 (07:52→20:43)
[2021-01-22] MEDS: POLYETHYLENE (MIRALAX) 17 GM PACK PO SCH ×2 (07:52→20:44)
[2021-01-22] MEDS: GABAPENTIN 300 MG CAP PO SCH ×2 (07:52→20:43)
[2021-01-22] MEDS: dexAMETHasone 8 MG in SYRINGE 0 ML IV SCH (07:52)
[2021-01-22] MEDS: INSULIN GLARGINE SOLOSTAR 100 UNITS/ML 3 ML PEN SC SCH (08:39)
[2021-01-22] MEDS: INSULIN ASPART 100 UNITS/ML 3 ML PEN SC SCH ×4 (08:39→20:43)
[2021-01-22] MEDS: INSULIN HUMAN NPH SC SCH (08:40)
--- NOTE | 2021-01-22 08:48 | Orthopedic Progress Note ---
Date of Service January 22, 2021 Assessment & Plan (1) Cauda equina syndrome: Patient is postoperative day for lumbar decompression and fusion secondary to cauda equina syndrome. We will DC HEATH drain today. Hopefully can participate with physical therapy today. Maintain Gray catheter. This will most likely have to remain upon discharge with follow-up with urology. Currently seeking authorization from insurance for [facility] upon discharge. He is orthopedically stable for discharge when needs are met and authorization approved. Admission and Anticipated Discharge Date Admission Date: January 17, 2021 Supervising Physician Co-Signing Physician Notes Dr. Young Eckert Subjective Patient is postoperative day 4 lumbar decompression fusion secondary to cauda equina syndrome. He was unable to participate in physical therapy due to diarrhea. He feels he has had bit of improvement in his sensation in his lower extremities over the past 24 hours. Still quite weak in the lower extremities. He is barely able to stand. Gray catheter intact. Review of Systems Review of Systems: All systems reviewed & are unremarkable except as noted in HPI & below Physical Exam Physical Exam: He is lying in bed in no acute distress Alert and oriented x3 Left lower extremity specifically the EHL, dorsiflexion and hamstrings are considerably weaker than the right lower extremity Lumbar dressing is clean dry and intact with functioning HEATH drain Constitutional: WD/WN, vitals as above Eyes: normal visual szymanski by confrontation ENMT: external ear and nose normal, oropharynx normal Neck: normal visual inspection Respiratory: normal respiratory effort Cardiovascular: Extremities: normal capillary refill Chest (Breasts): Chest: normal inspection of chest Gastrointestinal (Abdomen): Inspection/Auscultation: abdomen normal to inspection Musculoskeletal: Extremities: extremities normal to inspection Skin: no rashes, warm and dry Neurologic: normal touch/pain/proprioception and moves all extremities Psychiatric: A+Ox3, euthymic affect Eye Contact: good eye contact Results & Data ([facility]) Vital Signs (Past 12 Hours) Vital Signs Temp Pulse Pulse Resp BP BP Pulse Ox 01/22/21 07:27 37 C 101 H 18 138/97 95 01/22/21 03:13 36.7 C 90 18 147/99 H 96 01/22/21 01:18 94 H 01/21/21 22:33 36.5 C 91 H 18 151/95 H 93
[2021-01-22] MEDS ORDERED: INSULIN HUMAN NPH SC SCH (09:00)
--- NOTE | 2021-01-22 14:24 | Pharmacy Report ---
Pharmacy Glycemic Short Note 2 - Date of Service January 22, 2021 - Glycemic Short BSG Results (Last 24 hours): 01/21/21 01/21/21 01/21/21 16:49 16:57 20:15 POC Glucose 199 H 254 H 174 H 01/22/21 01/22/21 07:41 11:25 POC Glucose 170 H 236 H OUTPATIENT ANTIDIABETIC REGIMEN: * metformin, glimepiride * A1c 7.7% ASSESSMENT: 01/22/21 * Blood sugars continue to rise throughout the day, increase NPH today * No further changes at this time * Possibly DC tomorrow 01/21/21: * Pt has received 57 units of insulin over the past 24hrs * 20 units of basal with Lantus * 37 units of bolus with NovoLog * BSGs 152-250 mg/dl * Dexamethasone restarted 8mg IV daily yesterday, missed covering with NPH yesterday as dose was started late * Added NPH with Dexamethasone this AM to cover steroid effects * Tighten CF/CR 01/20: * Pt has received 47 units of insulin over the past 24hrs * 10 units of basal with NPH * 37 units of bolus with NovoLog * BSGs [phone] mg/dl * AM fasting BSG is elevated this morning at 203 mg/dl most likely d/t basal insulin deficiency. Pt received 40 units on 01/18 and only 10 units yesterday. Will increase basal insulin to 20 units and change to Lantus as 24 hr insulin is most likely needed based on the HS to AM BSG rise of 136 (@ HS) to 203 (AM fasting). * Will loosen CF/CR since basal insulin increasing and regimen is heavily weighted towards prandial insulin. Pos-prandial BSGs trending downwards with current parameters. 01/18: * 70 year old with lumbar disc herniation, plan for OR today. * Type 2 diabetic managed on orals at home. Started dexamethasone * Fasting BSG elevated this AM 217 mg/dL due to steroids last night given. Plan to start NPH BID to help with steroid coverage. Given 20 units x 1 this AM and will start scale for evening dosing. * Will receive steroids x 3 doses and then stop per order PLAN FOR INPATIENT GLYCEMIC CONTROL: * Hold outpatient oral diabetes medications * Basal insulin * INCREASE: NPH 30 units SQ Daily with IV Dexamethasone * Lantus 20 units SQ QAM * Bolus insulin: * NovoLog per scale ACHS or Q6hrs while NPO * Goal Range: Low 110 mg/dL - High 140 mg/dL * Correction Factor: 15 mg/dL/unit * Nutritional / Prandial insulin per carb ratio of 1 unit per 5 grams CHO consumed PLAN FOR DISCHARGE: * A1c is in goal range at 7.7% on 01/18/21 * No changes needed to outpatient regimen.
--- NOTE | 2021-01-22 15:47 | Hospitalist Progress Note ---
Date of Service January 22, 2021 Assessment & Plan (1) Lumbar disc herniation with radiculopathy: (2) Cauda equina syndrome: POD #4 s/p decompression and fusion with Dr. Eckert. Pain persists. Dilaudid, oxycodone, and tramadol ordered for pain. Pain reports some of his numbness of the legs is improving, but numbness of the groin and perianal region persists. Decadron and gabapentin ordered. Continue with PT/OT. Plan for d/c to acute rehab facility. (3) Urinary retention: Hewitt catheter remains in place. Will likely need an outpatient trial of void with urology in 7-10 days. (4) Constipation: Constipation persists, but patient is passing flatus, and bowel sounds present in all 4 quadrants. --KUB on 01/20 with ileus, non obstructive bowel pattern --Dulcolax suppository on 01/20 produced some flatus and liquid stool --LBM 5/ at 8pm. --Continue to monitor. (5) Sinus tachycardia: EKG with lateral flattening - neg troponin - continue tele for now (6) GERD (gastroesophageal reflux disease): Continue famotidine and omeprazole. (7) Diabetes: Last HgbA1C was 7.7% on 01/18/21. Holding Metformin Novolog SS Diabetic diet, monitor for hypoglycemia (8) Hypertension: BP elevated at 157/93. Likely secondary to pain. Metoprolol ordered PRN for SBP >170. Continue to monitor. May need to treat if BP not improving with decreased pain. (9) Hypothyroidism: Continue Levothyroxine 100mcg daily. (10) Dyslipidemia (high LDL; low HDL): Continue atorvastatin. Disposition: Acute Rehab facility Admission and Anticipated Discharge Date Admission Date: January 17, 2021 Subjective 70 yo male POD #4 s/p spinal surgery for cauda equina syndrome. Patient reports pain today. Improved with medication. He reports he is passing flatus, but no BM since 8pm last evening. He denies n/v. He reports sensation of the groin and perianal region are minimally improving. He is tolerating the hewitt catheter. No other new complaints today. Review of Systems Constitutional: no fever and no chills Eyes: no worsening vision Ear, Nose, Mouth, Throat: no dizziness Respiratory: no dyspnea Cardiovascular: no chest pain Gastrointestinal: + constipation; no abdominal pain, no nausea and no vomiting Psychiatric: no confusion Physical Exam Physical Exam: Temp Pulse Resp BP Pulse Ox 36.4 C L 98 H 18 157/93 H 92 01/22/21 14:36 01/22/21 14:36 01/22/21 14:36 01/22/21 14:36 01/22/21 14:36 Patient is afebrile. He is hypertensive at 157/93. He is asymptomatic other than pain. Constitutional: + obese; no acute distress ENMT: Ears: no hearing impairment Neck: trachea midline, no thyromegaly Respiratory: normal respiratory effort, lungs clear to auscultation Cardiovascular: RRR, no murmur, no edema Gastrointestinal (Abdomen): Inspection/Auscultation: normal bowel sounds Percussion/Palpation: abdomen soft; abdomen nontender Psychiatric: A+Ox3, euthymic affect Results & Data Results & Data ([facility]) Vital Signs (Past 12 Hours) Vital Signs Temp Pulse Pulse Resp BP Pulse Ox 01/22/21 14:36 36.4 C L 98 H 18 157/93 H 92 01/22/21 11:13 36.4 C L 107 H 20 166/78 H 93 01/22/21 07:30 89 01/22/21 07:27 37 C 101 H 18 138/97 95 PG Care Time/CCT Total # of Minutes Spent Total Time Spent with Patient: Total time spent is greater than 50% in coordination of care (as documented) at patient's floor/unit and/or counseling patient: Coding Level of Care Code 09559 Subseq Hosp Care Lvl 2 Diagnoses Lumbar disc herniation with radiculopathy M51.16 Cauda equina syndrome G83.4 Urinary retention R33.9 Constipation K59.00 Sinus tachycardia R00.0 GERD (gastroesophageal reflux disease) K21.9 Diabetes E11.9 Hypertension I10 Hypothyroidism E03.9 Dyslipidemia (high LDL; low HDL) E78.5
[2021-01-22] MEDS: FAMOTIDINE 40 MG TABLET PO SCH (20:43)
[2021-01-22] MEDS: DOCUSATE SODIUM/SENNA 50/8.6MG TAB PO SCH (20:44)
[2021-01-23] MEDS: LEVOTHYROXINE SODIUM 100 MCG TABLET PO SCH (05:58)
[2021-01-23] MEDS: dexAMETHasone 8 MG in SYRINGE 0 ML IV SCH (08:20)
[2021-01-23] MEDS: GABAPENTIN 300 MG CAP PO SCH ×2 (08:21→20:58)
[2021-01-23] MEDS: ATORVASTATIN 40 MG TAB PO SCH (08:21)
[2021-01-23] MEDS: PANTOprazole 40 MG TAB PO SCH ×2 (08:22→20:57)
[2021-01-23] MEDS: POLYETHYLENE (MIRALAX) 17 GM PACK PO SCH ×2 (08:23→20:57)
[2021-01-23] MEDS: INSULIN GLARGINE SOLOSTAR 100 UNITS/ML 3 ML PEN SC SCH (08:26)
[2021-01-23] MEDS: INSULIN ASPART 100 UNITS/ML 3 ML PEN SC SCH ×4 (08:27→21:42)
[2021-01-23] MEDS ORDERED: INSULIN HUMAN NPH SC SCH (09:00)
--- NOTE | 2021-01-23 10:49 | Pharmacy Report ---
Pharmacy Glycemic Short Note 2 - Date of Service January 23, 2021 - Glycemic Short BSG Results (Last 24 hours): 01/22/21 01/22/21 01/22/21 11:25 16:14 20:23 POC Glucose 236 H 207 H 200 H 01/23/21 07:35 POC Glucose 157 H OUTPATIENT ANTIDIABETIC REGIMEN: * Metformin 1000 mg PO BIDM * Glimepiride 2 mg PO Daily * HbA1c = 7.7% (01/18/21) ASSESSMENT: 01/23/21 * Mr. Camejo received a total of 106 units of insulin yesterday * 50 units basal (20 units Lantus + 30 units NPH) + 56 units bolus * BSGs were uncontrolled: [phone] mg/dL * Fasting BSG was improved to 157 mg/dL, almost to goal * Continue with 20 units of Lantus QAM * Continued trend upwards in postprandial BSGs * Will increase NPH this AM to cover for steroid induced hyperglycemia (continues on Dexamethasone 8 mg IV daily) * Tightened carb ratio with breakfast this AM - may need to loosen if too aggressive 01/22/21 * Blood sugars continue to rise throughout the day, increase NPH today * No further changes at this time * Possibly DC tomorrow 01/21/21: * Pt has received 57 units of insulin over the past 24hrs * 20 units of basal with Lantus * 37 units of bolus with NovoLog * BSGs 152-250 mg/dl * Dexamethasone restarted 8mg IV daily yesterday, missed covering with NPH yesterday as dose was started late * Added NPH with Dexamethasone this AM to cover steroid effects * Tighten CF/CR PLAN FOR INPATIENT GLYCEMIC CONTROL: * Hold outpatient oral diabetes medications * Basal insulin - increased NPH * NPH 40 units SC Daily with IV Dexamethasone (hold if Dexamethasone is held/discontinued) * Lantus 20 units SC QAM * Bolus insulin - tightened CR * NovoLog per scale ACHS or Q6hrs while NPO * Goal Range: Low 110 mg/dL - High 140 mg/dL * Correction Factor: 15 mg/dL/unit * Nutritional / Prandial insulin per carb ratio of 1 unit per 4 grams CHO consumed PLAN FOR DISCHARGE: * HbA1c from this admission was 7.7%. This is above goal for this patient based on his age and comorbidities. Ideally, patient should keep HbA1c less than 7%. * However, this has improved from 8.6% in July of 2020. Therefore, no changes recommended to outpatient regimen.
--- NOTE | 2021-01-23 13:53 | Orthopedic Progress Note ---
Date of Service January 23, 2021 Assessment & Plan (1) Cauda equina syndrome: Admission and Anticipated Discharge Date Admission Date: January 17, 2021 This time we will continue physical therapy as tolerated. Anticipate discharge to rehab tomorrow. Subjective Patient feels his numbness and tingling is improving. He feels motor strength is improving. Back pain is well controlled. Physical Exam Physical Exam: On exam he does exhibit deficits with bilateral plantar flexion dorsiflexion though I feel that the strength is improved on the left compared to the right. His quadricep is 5/5 bilaterally. He is sensation light touch involving the entire lower extremities. Results & Data ([facility]) Vital Signs (Past 12 Hours) Vital Signs Temp Pulse Pulse Resp BP Pulse Ox 01/23/21 11:00 36.5 C 100 H 16 152/90 H 92 01/23/21 07:45 36.5 C 87 17 122/88 93 01/23/21 03:23 36.3 C L 93 H 18 142/92 H 95
[2021-01-23] MEDS ORDERED: OPTIRAY 350 500ml IV ONE (14:34)
--- NOTE | 2021-01-23 14:53 | CT Scan Report ---
CT ANGIOGRAM OF THE CHEST CLINICAL HISTORY: tachycardia, prolonged immobility, back surgery COMPARISON STUDY: January 20, 2016 TECHNIQUE: Following the IV administration of 120 mL of Optiray, CT angiogram of the thorax was perfo rmed from the thoracic inlet to the lung bases utilizing the pulmonary embolus protocol. Images are r eviewed in the axial, sagittal, and coronal planes. IV contrast was administered without complication . MIP imaging was performed. A dose lowering technique was utilized adhering to the principles of AL GIGI. CT DOSE: 654.57 mGy.cm FINDINGS: No pathologically enlarged axillary mediastinal or hilar lymph nodes were visualized. There is mild ectasia of descending thoracic aorta which measures 37 mm. There is no evidence of aort ic dissection. There is a filling defect within the proximal right upper lobe pulmonary artery consistent with an ac [place] pulmonary embolism. No pleural effusions are visualized. There are areas of right lower lobe atelectasis. There is a lingular opacity also likely atelectatic. IMPRESSION: Moderate-sized right upper lobe pulmonary artery filling defects consistent with acute p ulmonary embolism. ACT 112: Negative or not required by law. Electronically signed by: Curly Graves M.D. 01/23/2021 2:51 PM
[2021-01-23] MEDS ORDERED: Heparin IV Adult Wt-Based Standard *NO* Bolus Protocol IV SCH (16:15)
[2021-01-23 17:22] LABS: Basophils # (auto) 0.01 K/uL (0-0.2); Basophils % (auto) 0.1 %; Eosinophils # (auto) 0.01 K/uL (0-0.5); Eosinophils % (auto) 0.1 %; Hematocrit (blood only) 39.7 % (42-52); Hemoglobin 14.4 g/dL (14.0-18.0); Immature Granulocytes # (auto) 0.06 K/uL (0.00-0.02); Immature Granulocytes % (auto) 0.4 %; Lymphocytes # (auto) 1.51 K/uL (1.2-3.4); Lymphocytes % (auto) 11.1 %; Mean Corpuscular Hemoglobin 31.2 pg (25-34); Mean Corpuscular Volume 85.9 fL (80-100); Mean Platelet Volume 11.4 fL (7.4-10.4); Monocytes # (auto) 1.26 K/uL (0.11-0.59); Monocytes % (auto) 9.3 %; Neutrophils # (auto) 10.75 K/uL (1.4-6.5); Platelet Count 305 K/uL (130-400); RDW Coefficient of Variation 12.1 % (11.5-14.5); RDW Standard Deviation 37.9 fL (36.4-46.3); Red Blood Count 4.62 M/uL (4.7-6.1)
[2021-01-23 17:32] LABS: Partial Thromboplastin Ratio 0.8; Partial Thromboplastin Time 21.6 Seconds (21.0-31.0)
[2021-01-23 17:38] LABS: Mean Corpuscular Hgb Conc 36.3 g/dL (32-36)
[2021-01-23] MEDS: HEPARIN SODIUM/DEXTROSE 25,000 UNITS/500 ML BAG IV SCH (17:38)
--- NOTE | 2021-01-23 20:37 | Hospitalist Progress Note ---
Date of Service January 23, 2021 Assessment & Plan (1) Pulmonary embolism: likely developed RLE DVT with PEs pre-admission. was tachycardia at time of admission which was likely a sign of his PEs (pain may have contributed to tachycardia as well, of course). reason for VTE - immobility - severely immobile prior to admission from b/l leg weakness and pain. spoke with Dr Eckert - we are far enough way post-op to begin systemic anticoagulation. start heparin drip without bolus. again dopplers with DVT of RLE today. (2) Tachycardia: 2nd to PEs. pain largely controlled. H/H stable. (3) DVT of leg (deep venous thrombosis): RLE as seen on doppler today see above (4) Lumbar disc herniation with radiculopathy: lumbar disc herniation and concern for cauda equina with neurogenic bowel, bladder, and b/l leg weakness POD #5 s/p -- lumbar decompression bilateral medial facetectomies and foraminotomies L3-4 and L4-5 per #2 posterior spinal fusion L4-5 per #3 placement posterior instrumentation L4-5 per #4 interbody fusion L4-5. #5 placement peek cage 13 x 26 mm at L4-5. #6 placement locally harvested morselized autograft in the posterior lateral gutters. #7 placement infuse collagen sponge, master graft in the posterior gutters and I factor and interbody space. all by Dr Eckert continue PT/OT while inpatient continue hewitt bowel regimen [facility] at d/c (5) Hypertension: (6) GERD (gastroesophageal reflux disease): pepcid HS (7) Hypothyroidism: TSH 07/2020 wnl cont synthroid as is (8) Dyslipidemia (high LDL; low HDL): cont statin (9) Diabetes: cont lantus-novolog (10) Urinary retention: neurogenic cont hewitt will need [facility] urology referral post-d/c for chronic management may need intermittent self-cathing in future if neurological function does not return (11) Constipation: neurogenic cont bowel regimen extensively updated tonight care d/w Dr Eckert Admission and Anticipated Discharge Date Admission Date: January 17, 2021 Subjective tele - sinus tach, low 100s patient w/o palpitations, cp, or dyspnea however having 2 liquid BMs/day hewitt still in place numbness of b/l legs persists but improved from admission pain in buttock/legs improved from admission no personal or family h/o VTE patient does state that for about 1 week prior to admission he was essentially bedbound Review of Systems Constitutional: no fever and no chills Respiratory: no cough Gastrointestinal: + diarrhea/loose stools Genitourinary: + difficulty urinating and + urinary incontinence Physical Exam Constitutional: no acute distress and no altered mental status ENMT: external ear and nose normal, oropharynx normal Respiratory: normal respiratory effort, lungs clear to auscultation Cardiovascular: Rate/Rhythm: regular rhythm and + tachycardic Heart Sounds: normal S1 and normal S2; no murmur Vessels: posterior tibial pulses present and dorsalis pedis pulses present; no JVD Extremities: no edema Gastrointestinal (Abdomen): Inspection/Auscultation: + abdomen distended and normal bowel sounds Percussion/Palpation: abdomen nontender and no guarding Neurologic: strength left leg better than right leg distally (dorsiflexion/plantarflexion of right ankle 3-4/5; 4-5/5 on left); b/l hip flexion weakness; arm strength 5/5 b/l Psychiatric: Orientation: alert and oriented x 3 Results & Data Results & Data ([facility]) Vital Signs (Past 12 Hours) Vital Signs Temp Pulse Pulse Resp BP BP Pulse Ox 01/23/21 19:22 36.7 C 92 H 18 162/95 H 96 01/23/21 16:00 37.3 C 99 H 18 153/97 H 94 01/23/21 11:00 36.5 C 100 H 16 152/90 H 92 Laboratory Results Laboratory Results - last 24 hr 01/22/21 01/23/21 01/23/21 20:23 07:35 11:45 WBC RBC Hgb Hct MCV MCH MCHC RDW Std Deviation RDW Coeff of Radha Plt Count MPV Immature Gran % (Auto) Neut % (Auto) Lymph % (Auto) Hyde % (Auto) Eos % (Auto) Baso % (Auto) Neut # (Auto) Lymph # (Auto) Hyde # (Auto) Eos # (Auto) Baso # (Auto) Immature Gran # (Auto) PT INR APTT PTT Ratio POC Glucose 200 H 157 H 235 H 01/23/21 01/23/21 01/23/21 17:01 17:10 17:10 WBC 13.60 H RBC 4.62 L Hgb 14.4 Hct 39.7 L MCV 85.9 MCH 31.2 MCHC 36.3 H RDW Std Deviation 37.9 RDW Coeff of Radha 12.1 Plt Count 305 MPV 11.4 H Immature Gran % (Auto) 0.4 Neut % (Auto) 79.0 Lymph % (Auto) 11.1 Hyde % (Auto) 9.3 Eos % (Auto) 0.1 Baso % (Auto) 0.1 Neut # (Auto) 10.75 H Lymph # (Auto) 1.51 Hyde # (Auto) 1.26 H Eos # (Auto) 0.01 Baso # (Auto) 0.01 Immature Gran # (Auto) 0.06 H PT 10.0 INR 1.0 APTT 21.6 PTT Ratio 0.8 POC Glucose 173 H PG Care Time/CCT Total # of Minutes Spent Total Time Spent with Patient: Total time spent is greater than 50% in coordination of care (as documented) at patient's floor/unit and/or counseling patient: Coding Level of Care Code 94160 Subseq Hosp Care Lvl 3 Diagnoses Pulmonary embolism I26.99 Tachycardia R00.0 DVT of leg (deep venous thrombosis) I82.409 Lumbar disc herniation with radiculopathy M51.16 Hypertension I10 GERD (gastroesophageal reflux disease) K21.9 Hypothyroidism E03.9 Dyslipidemia (high LDL; low HDL) E78.5 Diabetes E11.9 Urinary retention R33.9 Constipation K59.00
--- NOTE | 2021-01-23 20:42 | Ultrasound Report ---
ULTRASOUND BILATERAL LOWER EXTREMITY VENOUS CLINICAL HISTORY: Pulmonary emboli. COMPARISON STUDY: Bilateral lower extremity venous ultrasound dated 09/03/2018. TECHNIQUE: Real-time, grayscale, and color Doppler sonography of the deep veins of the right and left lower extremity was performed from the inguinal crease to the calf. Compression and augmentation wer e utilized. FINDINGS: Right lower extremity: There is nonocclusive deep venous thrombosis identified in the right calf with in the peroneal veins. The remaining visualized calf vessels are patent. The common femoral, superfic ial femoral, and popliteal veins are patent and normally compressible. The greater saphenous vein and the profunda femoris vein at the junction with the common femoral vein are clear. Left lower extremity: There is no sonographic evidence of deep venous thrombosis identified in the le ft lower extremity. The common femoral, superficial femoral, and popliteal veins are patent and conchis lly compressible. The greater saphenous vein and the profunda femoris vein at the junction with the c ommon femoral vein are clear. The visualized calf veins are patent. IMPRESSION: 1. Nonocclusive deep venous thrombosis is identified in the right calf as above. 2. There is no sonographic evidence of deep venous thrombosis in the left lower extremity. ACT 112: Negative or not required by law. Electronically signed by: Morris Coburn M.D. 01/23/2021 8:40 PM
[2021-01-23] MEDS: DOCUSATE SODIUM/SENNA 50/8.6MG TAB PO SCH (20:57)
[2021-01-23] MEDS: FAMOTIDINE 40 MG TABLET PO SCH (20:57)
[2021-01-24 00:01] LABS: Partial Thromboplastin Ratio 1.3; Partial Thromboplastin Time 35.3 Seconds (21.0-31.0)
[2021-01-24] MEDS ORDERED: HEPARIN IV BOLUS 4,000 UNITS in SYRINGE 0 ML IV ONE (00:30)
[2021-01-24] MEDS: LEVOTHYROXINE SODIUM 100 MCG TABLET PO SCH (06:34)
[2021-01-24 07:16] LABS: Partial Thromboplastin Ratio 2.5
[2021-01-24 07:24] LABS: Partial Thromboplastin Time 64.8 Seconds (21.0-31.0)
[2021-01-24 07:50] LABS: Calcium 8.8 mg/dl (8.5-10.1); Creatinine Clr Calc Pharmacy 92.9 ml/min; Est GFR (African American) 96.7; Est GFR (Non-African American) 83.5; Potassium 3.8 mmol/L (3.5-5.1)
[2021-01-24] MEDS: ATORVASTATIN 40 MG TAB PO SCH (08:39)
[2021-01-24] MEDS: HEPARIN SODIUM/DEXTROSE 25,000 UNITS/500 ML BAG IV SCH ×2 (08:39→23:03)
[2021-01-24] MEDS: dexAMETHasone 8 MG in SYRINGE 0 ML IV SCH (08:40)
[2021-01-24] MEDS: GABAPENTIN 300 MG CAP PO SCH ×2 (08:40→20:55)
[2021-01-24] MEDS: PANTOprazole 40 MG TAB PO SCH ×2 (08:42→20:55)
[2021-01-24] MEDS: INSULIN HUMAN NPH SC SCH (08:42)
[2021-01-24] MEDS: POLYETHYLENE (MIRALAX) 17 GM PACK PO SCH ×2 (08:43→20:56)
[2021-01-24] MEDS ORDERED: INSULIN GLARGINE SOLOSTAR 100 UNITS/ML 3 ML PEN SC SCH (09:00)
--- NOTE | 2021-01-24 09:18 | Pharmacy Report ---
Pharmacy Glycemic Short Note 2 - Date of Service January 24, 2021 - Glycemic Short BSG Results (Last 24 hours): 01/23/21 01/23/21 01/23/21 11:45 17:01 20:35 Glucose POC Glucose 235 H 173 H 129 H 01/24/21 01/24/21 06:31 07:47 Glucose 160 H POC Glucose 178 H OUTPATIENT ANTIDIABETIC REGIMEN: * Metformin 1000 mg PO BIDM * Glimepiride 2 mg PO Daily * HbA1c = 7.7% (01/18/21) ASSESSMENT: 01/24: * Patient received a total of 116 units of insulin yesterday * 60 units basal (40 units NPH + 20 units Lantus) + 56 units bolus * BSGs were: [phone] mg/dL, improved but still mostly above goal * Fasting BSG increased today to 178 mg/dL * Will increase Lantus to help with uncontrolled fasting BSG * Will increase NPH to help with steroid induced hyperglycemia at lunch and dinner 01/23: * Mr. Camejo received a total of 106 units of insulin yesterday * 50 units basal (20 units Lantus + 30 units NPH) + 56 units bolus * BSGs were uncontrolled: 615-248-395-200 mg/dL * Fasting BSG was improved to 157 mg/dL, almost to goal * Continue with 20 units of Lantus QAM * Continued trend upwards in postprandial BSGs * Will increase NPH this AM to cover for steroid induced hyperglycemia (continues on Dexamethasone 8 mg IV daily) * Tightened carb ratio with breakfast this AM - may need to loosen if too aggressive PLAN FOR INPATIENT GLYCEMIC CONTROL: * Hold outpatient oral diabetes medications * Basal insulin - increased NPH and Lantus * NPH 45 units SC Daily with IV Dexamethasone (hold if Dexamethasone is held/discontinued) * Lantus 25 units SC QAM * Bolus insulin * NovoLog per scale ACHS or Q6hrs while NPO * Goal Range: Low 110 mg/dL - High 140 mg/dL * Correction Factor: 15 mg/dL/unit * Nutritional / Prandial insulin per carb ratio of 1 unit per 4 grams CHO consumed PLAN FOR DISCHARGE: * HbA1c from this admission was 7.7%. This is above goal for this patient based on his age and comorbidities. Ideally, patient should keep HbA1c less than 7%. * However, this has improved from 8.6% in July of 2020. Therefore, no changes recommended to outpatient regimen.
[2021-01-24] MEDS: INSULIN ASPART 100 UNITS/ML 3 ML PEN SC SCH ×4 (10:09→20:59)
--- NOTE | 2021-01-24 14:58 | Orthopedic Progress Note ---
Date of Service January 24, 2021 Assessment & Plan (1) Cauda equina syndrome: Admission and Anticipated Discharge Date Admission Date: January 17, 2021 This time we will continue physical therapy. Hoping to transition him to a p.o. anticoagulant and then to discharge to rehab as soon as possible. Subjective Back pain well controlled. Leg numbness present but he feels it is improving. He was able to stand today with therapy and take a few steps. Physical Exam Physical Exam: On exam he still has some deficits to bilateral plantar flexion dorsiflexion extensor hallucis longus quadriceps are intact. Sensory intact. Results & Data ([facility]) Vital Signs (Past 12 Hours) Vital Signs Temp Pulse Resp BP Pulse Ox 01/24/21 11:06 36.7 C 104 H 18 137/87 92 01/24/21 06:59 36.8 C 87 18 163/90 H 94 01/24/21 03:58 36.7 C 91 H 18 146/85 H 93
[2021-01-24] MEDS: DOCUSATE SODIUM/SENNA 50/8.6MG TAB PO SCH (20:53)
[2021-01-24] MEDS: FAMOTIDINE 40 MG TABLET PO SCH (20:55)
[2021-01-25] MEDS: LEVOTHYROXINE SODIUM 100 MCG TABLET PO SCH (05:39)
[2021-01-25 05:59] LABS: Hematocrit (blood only) 39.3 % (42-52); Hemoglobin 13.9 g/dL (14.0-18.0); Mean Corpuscular Hemoglobin 30.9 pg (25-34); Mean Corpuscular Hgb Conc 35.4 g/dL (32-36); Mean Corpuscular Volume 87.3 fL (80-100); Mean Platelet Volume 11.4 fL (7.4-10.4); Platelet Count 300 K/uL (130-400); RDW Coefficient of Variation 12.3 % (11.5-14.5); RDW Standard Deviation 39.4 fL (36.4-46.3); White Blood Count 15.06 K/uL (4.8-10.8)
[2021-01-25 06:17] LABS: Partial Thromboplastin Ratio 2.4
[2021-01-25 06:20] LABS: Partial Thromboplastin Time 63.5 Seconds (21.0-31.0)
[2021-01-25 06:32] LABS: BUN Creatinine Ratio 24.6 (10-20); Calcium 9.3 mg/dl (8.5-10.1); Creatinine Clr Calc Pharmacy 88.6 ml/min; Est GFR (African American) 90.8; Est GFR (Non-African American) 78.4; Potassium 3.9 mmol/L (3.5-5.1)
--- NOTE | 2021-01-25 06:49 | Hospitalist Progress Note ---
Date of Service January 24, 2021 Assessment & Plan (1) Pulmonary embolism: likely developed RLE DVT with PEs pre-admission. was tachycardia at time of admission which was likely a sign of his PEs (pain may have contributed to tachycardia as well). reason for VTE - immobility - severely immobile prior to admission from b/l leg weakness and pain. 5/3 - heparin drip initiated. RLE DVT seen on doppler; LLE neg for DVT. I spoke again with Dr Eckert today - starting tomorrow ok to initiate oral anticoagulation in form of DOAC. Will likely start eliquis 10mg BID tomorrow. risk of bleeding from surgical site very low and thus far no bleeding issues on heparin infusion. will need 6 months of Rx. (2) Tachycardia: 2nd to PEs. pain controlled. H/H stable. (3) DVT of leg (deep venous thrombosis): RLE as seen on doppler see above (4) Lumbar disc herniation with radiculopathy: lumbar disc herniation and concern for cauda equina with neurogenic bowel, bladder, and b/l leg weakness POD #6 s/p -- lumbar decompression bilateral medial facetectomies and foraminotomies L3-4 and L4-5 per #2 posterior spinal fusion L4-5 per #3 placement posterior instrumentation L4-5 per #4 interbody fusion L4-5. #5 placement peek cage 13 x 26 mm at L4-5. #6 placement locally harvested morselized autograft in the posterior lateral gutters. #7 placement infuse collagen sponge, master graft in the posterior gutters and I factor and interbody space. all by Dr Eckert continue PT/OT while inpatient continue hewitt bowel regimen [facility] at d/c (5) Hypertension: not on meds and BPs largely acceptable (6) GERD (gastroesophageal reflux disease): pepcid HS (7) Hypothyroidism: TSH 07/2020 wnl cont synthroid as is (8) Dyslipidemia (high LDL; low HDL): cont statin (9) Diabetes: cont lantus-novolog a1c 7.7% in December 2020 was on oral meds at home pre-admission (10) Urinary retention: neurogenic cont hewitt will need [facility] urology referral post-d/c for chronic management may need intermittent self-cathing in future if neurological function does not return (11) Constipation: neurogenic cont bowel regimen (12) Taste impairment: deserves another COVID test repeat COVID test negative follow (13) Hyponatremia: BMP in am (14) Gout: resume allopurinol prophylaxis (15) Radicular pain of both lower extremities: on tapering decadron course d/c IV steroid today switch to 4mg of PO decadron tomorrow consider increase in gabapentin from 300mg BID to 300mg TID Admission and Anticipated Discharge Date Admission Date: January 17, 2021 Subjective patient states that since his surgery his taste has been altered. he has a bag of pretzels at bedside and he states they are entirely different tasting compared to normal. smell is also impaired but more so chronically due to chronic rhinitis. back pain controlled. still with 1-2 liquid stools daily. numbness in feet/legs about the same as yesterday. feels a little stronger in his legs today. no bleeding issues overnight on heparin. Review of Systems Constitutional: no fever, no chills and no anorexia Respiratory: no cough and no dyspnea Cardiovascular: no chest pain Gastrointestinal: no abdominal pain, no nausea and no vomiting Physical Exam Constitutional: no acute distress and no altered mental status ENMT: external ear and nose normal, oropharynx normal Respiratory: normal respiratory effort, lungs clear to auscultation Cardiovascular: Rate/Rhythm: regular rhythm and + tachycardic Heart Sounds: normal S1 and normal S2; no murmur Vessels: posterior tibial pulses present and dorsalis pedis pulses present; no JVD Extremities: no edema Gastrointestinal (Abdomen): Inspection/Auscultation: + abdomen distended (mild; no change ) and normal bowel sounds Percussion/Palpation: abdomen nontender and no guarding Skin: midline, vertical lumbar incision c/d/i - no hematoma or bleeding Neurologic: hip flexion a little better today b/l in comparison to yesterday's exam; right distal leg strength 3/5; left distal leg strength 4/5 Psychiatric: Orientation: alert and oriented x 3 Results & Data Results & Data ([facility]) Vital Signs (Past 12 Hours) Vital Signs Temp Pulse Resp BP BP Pulse Ox 01/25/21 03:00 36.6 C 84 20 132/84 96 01/24/21 23:00 36.7 C 95 H 20 148/90 H 98 01/24/21 19:34 37.0 C 98 H 20 147/88 H 94 BMP wnl Na 133 doppler - right leg - peroneal vein DVT PG Care Time/CCT Total # of Minutes Spent Total Time Spent with Patient: Total time spent is greater than 50% in coordination of care (as documented) at patient's floor/unit and/or counseling patient: Coding Level of Care Code 41687 Subseq Hosp Care Lvl 3 Diagnoses Pulmonary embolism I26.99 Tachycardia R00.0 DVT of leg (deep venous thrombosis) I82.409 Lumbar disc herniation with radiculopathy M51.16 Hypertension I10 GERD (gastroesophageal reflux disease) K21.9 Hypothyroidism E03.9 Dyslipidemia (high LDL; low HDL) E78.5 Diabetes E11.9 Urinary retention R33.9 Constipation K59.00 Taste impairment R43.2 Hyponatremia E87.1 Gout M10.9 Radicular pain of both lower extremities M54.10
[2021-01-25] MEDS: ATORVASTATIN 40 MG TAB PO SCH (08:01)
[2021-01-25] MEDS: PANTOprazole 40 MG TAB PO SCH (08:01)
[2021-01-25] MEDS: POLYETHYLENE (MIRALAX) 17 GM PACK PO SCH (08:01)
[2021-01-25] MEDS: GABAPENTIN 300 MG CAP PO SCH (08:02)
[2021-01-25] MEDS: INSULIN ASPART 100 UNITS/ML 3 ML PEN SC SCH ×3 (08:40→17:28)
[2021-01-25] MEDS: INSULIN HUMAN NPH SC SCH (08:43)
[2021-01-25] MEDS ORDERED: allopurinoL 300 MG TAB PO SCH (09:00)
[2021-01-25] MEDS ORDERED: dexAMETHasone 4 MG TAB PO SCH (09:00)
[2021-01-25] MEDS ORDERED: INSULIN GLARGINE SOLOSTAR 100 UNITS/ML 3 ML PEN SC SCH (09:00)
--- NOTE | 2021-01-25 09:34 | Pharmacy Report ---
Pharmacy Glycemic Short Note 2 - Date of Service January 25, 2021 - Glycemic Short BSG Results (Last 24 hours): 01/24/21 01/24/21 01/24/21 11:29 16:30 20:14 Glucose POC Glucose 212 H 223 H 246 H 01/25/21 01/25/21 05:29 07:09 Glucose 132 H POC Glucose 126 H OUTPATIENT ANTIDIABETIC REGIMEN: * Metformin 1000 mg PO BIDM * Glimepiride 2 mg PO Daily * HbA1c = 7.7% (01/18/21) ASSESSMENT: 01/25: * Mr. Camejo received a total of 124 units of insulin yesterday * 70 units basal (45 units NPH + 25 units Lantus) + 54 units bolus * BSGs were: [phone] mg/dL, uncontrolled * Fasting BSG improved to 126 mg/dL this AM * Steroids have been changed from 8 mg IV Dexamethasone to 4 mg PO Dexamethasone starting this AM. Remains on a heparin drip. * Given continued trend upwards in postprandial glucose, will not adjust NPH but will tighten CF and CR * Will empirically reduce Lantus dose by 40% today given steroid dose was cut in half to prevent hypoglycemia 01/24: * Patient received a total of 116 units of insulin yesterday * 60 units basal (40 units NPH + 20 units Lantus) + 56 units bolus * BSGs were: 296-035-852-129 mg/dL, improved but still mostly above goal * Fasting BSG increased today to 178 mg/dL * Will increase Lantus to help with uncontrolled fasting BSG * Will increase NPH to help with steroid induced hyperglycemia at lunch and dinner 01/23: * Mr. Camejo received a total of 106 units of insulin yesterday * 50 units basal (20 units Lantus + 30 units NPH) + 56 units bolus * BSGs were uncontrolled: [phone] mg/dL * Fasting BSG was improved to 157 mg/dL, almost to goal * Continue with 20 units of Lantus QAM * Continued trend upwards in postprandial BSGs * Will increase NPH this AM to cover for steroid induced hyperglycemia (continues on Dexamethasone 8 mg IV daily) * Tightened carb ratio with breakfast this AM - may need to loosen if too aggressive PLAN FOR INPATIENT GLYCEMIC CONTROL: * Hold outpatient oral diabetes medications * Basal insulin - decreased Lantus * NPH 45 units SC Daily with PO Dexamethasone (hold if Dexamethasone is held/discontinued) * Lantus 15 units SC QAM * Bolus insulin - tightened CF/CR * NovoLog per scale ACHS or Q6hrs while NPO * Goal Range: Low 110 mg/dL - High 140 mg/dL * Correction Factor: 12 mg/dL/unit * Nutritional / Prandial insulin per carb ratio of 1 unit per 3 grams CHO consumed PLAN FOR DISCHARGE: * HbA1c from this admission was 7.7%. This is above goal for this patient based on his age and comorbidities. Ideally, patient should keep HbA1c less than 7%. * However, this has improved from 8.6% in July of 2020. Therefore, no changes recommended to outpatient regimen.
[2021-01-25] MEDS ORDERED: APIXABAN 5 MG TABLET PO SCH (12:20)
[2021-01-25] MEDS: HEPARIN SODIUM/DEXTROSE 25,000 UNITS/500 ML BAG IV SCH (13:37)
[2021-01-25] MEDS ORDERED: GABAPENTIN 300 MG CAP PO SCH (14:00)
--- NOTE | 2021-01-25 18:33 | Discharge Summary ---
Date of Service date of admission - January 17, 2021 date of discharge - January 25, 2021 Admission HPI Per Admitting Provider Mr Camejo is a 70yo male who presented with his for leg pain, back pain, and difficulty walking. The pain is bilateral and started on (01/12). The Saturday (01/08) prior to this he was moving gravel but no other event, trauma or acute injury to the area. The pain initially was 9-10/10 but intermittent. The pain was worse with movement and has become more constant and without movement. He called the ambulance when the pain became intolerable and developed lower leg numbness at that time. he urinated last around noon, but nursing mentioned that he was incontinent of urine after coming back from the MRI. He appeared confused and sleepy while I was talking with him. He has not had a bowel movement for 12 days, he notes that he has had constipation in the past but never to this extent. He has not had any chest pain today but did note that he had a moment where he had a sharp pain in his chest over the weekend that immediately resolved and was not associated with any shortness of breath, leg edema, or palpitations. Principal Diagnosis 1. lumbar spinal stenosis with cauda equina syndrome s/p urgent lumbar decompression/fusion 2. RLE DVT & PEs 3. neurogenic bowel & bladder Discharge Exam Constitutional no acute distress and no altered mental status ENMT external ear and nose normal, oropharynx normal Respiratory normal respiratory effort, lungs clear to auscultation Cardiovascular Rate/Rhythm: regular rate and regular rhythm Heart Sounds: normal S1 and normal S2; no murmur Vessels: posterior tibial pulses present and dorsalis pedis pulses present; no JVD Extremities: no edema Gastrointestinal (Abdomen) Inspection/Auscultation: + abdomen distended (mild; no change ) and normal bowel sounds Percussion/Palpation: abdomen nontender and no guarding Skin midline incision, lumbar region - clean, no drainage, no hematoma Neurologic hip flexion b/l 4-5/5 strength; right ankle dorsiflexion/plantarflexion 3-4/5; left ankle dorsiflexion/plantarflexion 4/5 strength; upper body strength 5/5 b/l Psychiatric Orientation: alert and oriented x 3 Discharge Data Allergies Allergy/AdvReac Type Severity Reaction Status Date / Time Penicillins Allergy Intermediate HIGH Verified 01/17/21 14:18 FEVER, RASH (NOTED ALLERGIC TO "ANY-CILLIN" bee pollen Allergy Unknown Verified 01/17/21 14:18 Consultations orthopedics - Brady Eckert DO PT, OT Pharmacy glycemic team Procedures Performed Operation Date: 01/18/21 07:00 Actual Procedures p L4-L5 Decompression Fusion with Insertion of Interbody, Application of Bone Morphogenetic Protein, Spinal Cord Monitoring - Brady Eckert DO Ordered Studies Lumbar Spine MRI 01/17/21 14:22 LUMBAR SPINE MRI HISTORY: Bilateral lower extremity radiculopathy. Low back pain. Twisting injury. TECHNIQUE: Multiplanar multisequence MRI of the lumbar spine was performed without the use of contrast. COMPARISON: Lumbar spine MRI 10/21/2018. FINDINGS: For the purpose of the report the L5-S1 disc space will be located on axial image . Mild motion artifact. No fracture or subluxation within the lumbar spine. The conus terminates at the L2-L3 disc space level. There are severe disc space narrowing at L5-S1 which has slightly progressed. Stable 13 mm hemangioma at S1. Remaining disc spaces are preserved for age. Severe facet degenerative changes at L4-L5 and L3-L4. Mild facet degenerative changes seen throughout the remaining lumbar spine. L1-L2: Small broad-based posterior disc bulge without significant central canal or neural foraminal narrowing. L2-L3: Small broad-based posterior disc bulge without significant central canal or neural foraminal narrowing. L3-L4: Broad-based posterior disc bulge with ligamentum and facet hypertrophy resulting in moderate central canal narrowing and mild to moderate bilateral neural foraminal narrowing. This has slightly progressed in the interval. L4-L5: Interval development of a large central disc extrusion measuring 16 x 11 x 11 mm. This completely replaces the thecal sac and results in severe central canal narrowing with compression of the cauda equina at this level. Clinical correlation recommended to assess for a cauda equina syndrome. There is mild to moderate bilateral neural foraminal narrowing. L5-S1: No significant central canal narrowing. There is moderate left and mild right neural foraminal narrowing. IMPRESSION: 1. Interval development of a large central disc extrusion at L4-L5 which com pletely replaces the thecal sac and results in severe central canal narrowing with compression of the cauda equina at this level. Clinical question recommended to assess for a cauda equina syndrome. Immediate surgical consultation recommended. 2. Additional degenerative changes as described above. 3. No fracture or subluxation within the lumbar spine. 4. Low-lying conus which terminates at the L2-L3 disc space level. ACT 112: Negative or not required by law. Electronically signed by: Kristopher Cohen M.D. 01/17/2021 4:57 PM Pelvis X-Ray 01/17/21 14:22 XR pelvis 1-2V routine CLINICAL HISTORY: back pain hip pain COMPARISON STUDY: Left hip 04/29/2011. FINDINGS: No fracture or dislocation within the pelvis or hips. The visualized sacrum appears intact. There are bilateral total hip arthroplasties. The hardware is intact. No abnormal periprosthetic lucency. Small amount of heterotopic ossification surrounding the inferior aspect of the left hip. IMPRESSION: No fracture or dislocation within the pelvis or hips. ACT 112: Negative or not required by law. Electronically signed by: Kristopher Cohen M.D. 01/17/2021 3:04 PM Lumbar Spine X-Ray 01/18/21 13:00 FL lumbar spine 2-3V CLINICAL HISTORY: L4-L5 DECOMPRESSION AND FUSION COMPARISON STUDY: Lumbar spine MRI January 17, 2021. FLUOROSCOPY TIME: 15 seconds. FLUOROSCOPIC IMAGES: 2 FINDINGS: Fluoroscopy was provided during L4-L5 discectomy, posterior decompression and bilateral pedicle screw fusion. Hardware is intact. There are no unexpected radiopaque foreign bodies. IMPRESSION: Fluoroscopy provided during L4-L5 discectomy, posterior decompression and bilateral pedicle screw fusion. ACT 112: Negative or not required by law. Electronically signed by: Kevin Del Angel M.D. 01/18/2021 3:12 PM KUB X-Ray 01/20/21 15:05 KUB HISTORY: Acute generalized abdominal pain with constipation and abdominal distention constipated, distended COMPARISON: MR lumbar spine 01/17/2021 FINDINGS: Nonobstructive bowel gas pattern. Nondilated air-filled loops of large and small bowel. No renal calculi. No ureteral calculi. No pneumoperitoneum or pneumatosis. Bilateral hip total joint arthroplasties. Posterior interbody beverley and screw fusion hardware with discectomy at L4-L5. Surgical drainage catheter. No fracture. IMPRESSION: 1. Nonobstructive bowel gas pattern. 2. Nondilated air-filled loops of bowel may reflect a mild ileus. ACT 112: Negative or not required by law. The above report was generated using voice recognition software. It may contain grammatical, syntax or spelling errors. Electronically signed by: Garrick Sullivan M.D. 01/20/2021 5:19 PM Chest CTA 01/23/21 13:47 CT ANGIOGRAM OF THE CHEST CLINICAL HISTORY: tachycardia, prolonged immobility, back surgery COMPARISON STUDY: January 20, 2016 TECHNIQUE: Following the IV administration of 120 mL of Optiray, CT angiogram of the thorax was performed from the thoracic inlet to the lung bases utilizing the pulmonary embolus protocol. Images are reviewed in the axial, sagittal, and coronal planes. IV contrast was administered without complication. MIP imaging was performed. A dose lowering technique was utilized adhering to the principles of ALARA. CT DOSE: 654.57 mGy.cm FINDINGS: No pathologically enlarged axillary mediastinal or hilar lymph nodes were visualized. There is mild ectasia of descending thoracic aorta which measures 37 mm. There is no evidence of aortic dissection. There is a filling defect within the proximal right upper lobe pulmonary artery consistent with an acute pulmonary embolism. No pleural effusions are visualized. There are areas of right lower lobe atelectasis. There is a lingular opacity also likely atelectatic. IMPRESSION: Moderate-sized right upper lobe pulmonary artery filling defects consistent with acute pulmonary embolism. ACT 112: Negative or not required by law. Electronically signed by: Curly Graves M.D. 01/23/2021 2:51 PM Venous Doppler Study 01/23/21 15:47 ULTRASOUND BILATERAL LOWER EXTREMITY VENOUS CLINICAL HISTORY: Pulmonary emboli. COMPARISON STUDY: Bilateral lower extremity venous ultrasound dated 09/03/2018. TECHNIQUE: Real-time, grayscale, and color Doppler sonography of the deep veins of the right and left lower extremity was performed from the inguinal crease to the calf. Compression and augmentation were utilized. FINDINGS: Right lower extremity: There is nonocclusive deep venous thrombosis identified in the right calf within the peroneal veins. The remaining visualized calf vessels are patent. The common femoral, superficial femoral, and popliteal veins are patent and normally compressible. The greater saphenous vein and the profunda femoris vein at the junction with the common femoral vein are clear. Left lower extremity: There is no sonographic evidence of deep venous thrombosis identified in the left lower extremity. The common femoral, superficial femoral, and popliteal veins are patent and normally compressible. The greater saphenous vein and the profunda femoris vein at the junction with the common femoral vein are clear. The visualized calf veins are patent. IMPRESSION: 1. Nonocclusive deep venous thrombosis is identified in the right calf as above. 2. There is no sonographic evidence of deep venous thrombosis in the left lower extremity. ACT 112: Negative or not required by law. Electronically signed by: Morris Coburn M.D. 01/23/2021 8:40 PM Hospital Course (1) Lumbar disc herniation with radiculopathy: Patient presented with severe lumbar disc herniation causing severe spinal stenosis and concern for cauda equina with neurogenic bowel, bladder, and b/l leg weakness. MRI lumbar spine confirmed the above. Seen by Brady Eckert, spine surgery, who advised urgent decompression/fusion of lumbar spine. On 01/18/21 the patient underwent the following by Dr Eckert - s/p -- lumbar decompression bilateral medial facetectomies and foraminotomies L3-4 and L4-5 per #2 posterior spinal fusion L4-5 per #3 placement posterior instrumentation L4-5 per #4 interbody fusion L4-5. #5 placement peek cage 13 x 26 mm at L4-5. #6 placement locally harvested morselized autograft in the posterior lateral gutters. #7 placement infuse collagen sponge, master graft in the posterior gutters and I factor and interbody space. Post-op the patient received PT/OT who both advised acute inpatient rehab post- discharge. Hewitt catheter remained for neurogenic bladder. He remained on a bowel regimen for neurogenic bowel. Post-discharge the patient will follow-up with Dr Eckert, [facility] for neurogenic bladder management, and will transfer to [facility] for intensive therapy. (2) Cauda equina compression: 2nd to large lumbar disc herniation causing severe spinal stenosis s/p lumbar decompression-fusion procedure by Dr Eckert residual motor and sensory loss in legs at time of discharge needs intensive rehab to promote recovery (3) Radicular pain of both lower extremities: on tapering decadron course during his stay for such. will complete a PO decadron course while at [facility]. gabapentin was increased from 300mg BID to 300mg TID. (4) Tachycardia: 2nd to PEs. Looking at HR trend he was tachycardic from the onset of his stay suggesting his PEs were subacute/occurred prior to admission. certainly pain could have made him tachycardic but even when pain was controlled his HRs were >100. he had no clinical evidence of right heart strain/RV dysfunction while hospitalized. (5) Pulmonary embolism: likely developed RLE DVT with PEs pre-admission. was tachycardia at time of admission which was likely a sign of his PEs (pain may have contributed to tachycardia as well). reason for VTE - immobility. He was severely immobile prior to admission from b/l leg weakness and pain. He reported being nearly bed-bound for at least 5-7 days prior to admission. PEs diagnosed on 01/23/21 (POD #5). 01/23/21 - heparin drip initiated. RLE DVT seen on doppler; LLE neg for DVT. Patient remained stable on heparin drip for nearly 48 hours - that is, no evidence of any bleeding from operative site, no obvious hematoma formation, etc. On 01/25/21 the heparin drip was discontinued, and eliquis BID was initiated. He will take eliquis as follows -- * Eliquis 10mg BID x 7 days, then - * Eliquis 5mg BID thereafter will need 6 months of Rx given extent of VTE. (6) DVT of leg (deep venous thrombosis): RLE as seen on doppler see above (7) Hypertension: not on meds and BPs largely acceptable during the hospitalization (8) GERD (gastroesophageal reflux disease): pepcid HS (9) Hypothyroidism: TSH 07/2020 wnl cont synthroid as is (10) Dyslipidemia (high LDL; low HDL): cont statin (11) Diabetes: cont lantus-novolog cont metformin BID a1c 7.7% in December 2020 was on oral meds only at home prior to this admission (12) Urinary retention: 2nd neurogenic bladder from severe spinal stenosis and concern for cauda equina based on MRI lumbar spine findings cont hewitt will need [facility] urology referral post-d/c for chronic management may need intermittent self-cathing in future if neurological function does not return (13) Constipation: neurogenic cont bowel regimen (14) Taste impairment: COVID testing x 2 negative during the stay medication side effect? chronic allergies? (15) Hyponatremia: lowest Na level 132 Na level 135 at discharge (16) Gout: continue allopurinol prophylaxis (17) Hx of testicular cancer: in his 20s completely cured by history Total Time Total Time Spent Total Time Spent (In Minutes): 50 Total Time Includes: Examination of the Patient, Discharge Planning, Medication Reconciliation and Communication With Other Providers Discharge Plan Discharge Items Patient Disposition: Transfer Inpatient Rehab Fac Reason For Visit: LUMBAR DISC HERNIATION Discharge Diagnosis: 1. lumbar disc disease / severe spinal stenosis with resulting "cauda equina syndrome" 2. severe back and leg pain due to #1 3. significant weakness of b/l legs due to #1 4. neurogenic bladder and bowel 2nd to #1 5. lumbar decompression-fusion procedure by Dr Brady Eckert - 01/18/21 6. pulmonary emboli 2nd to prolonged immobility prior to admission 7. RLE DVT Activity: Per Instructions section Bathing: Keep incision dry Bathing Comment: no tub baths Non-emergency contact: Primary Care Provider and Surgeon Call non-emergency contact if: you have any medication questions, your symptoms worsen, your pain is not controlled, your pain is worsening, you have a fever, your wound has increased redness, your wound has increased drainage and your wound pain has increased Follow-up/Referrals: Liz Kirby DO [Primary Care Provider] - Young Eckert DO [Surgeon] - (Dr Eckert - 1 week for recheck of lumbar incision, etc) Diet: Carb Consistent or DM2 and Heart Healthy Addtl Attending Provider Instructions: 1. BSG checks ac & hs 2. [facility] referral - 2-3 weeks; for neurogenic bladder, transition to intermittent self-cathing?? 3. Referral to Dr Eckert - 1 week - post-op check 4. inspect incision on lumbar spine twice daily for signs of bleeding/hematoma due to institution of anticoagulation 5. CBC, BMP, and mag in 2-3 days 6. neurogenic bowel & bladder training Pending Studies at Discharge: No Stand-Alone Forms: My [facility] Skilled Items Patient informed of condition?: Yes DNR: No Discharge Level of Care: Acute rehab Communicable Disease: No Discharge Prognosis: Stable Lines: None Urinary Catheter: Yes Medications and DC Order Prescriptions: New Eliquis 5 mg Tablet 5 mg PO DIRECTED Qty: 60 RF: 0 polyethylene glycol 3350 [Miralax] 17 gram Powder In Packet 17 g PO BID Qty: 60 RF: 0 sennosides-docusate sodium [Senokot-S] 8.6-50 mg Tablet 2 tab PO HS Qty: 60 RF: 0 Lantus Solostar U-100 Insulin 100 unit/mL (3 mL) Insulin Pen 15 unit SC DAILY Qty: 15 RF: 0 insulin aspart U-100 [Novolog Flexpen U-100 Insulin] 100 unit/mL (3 mL) Insulin Pen 0 unit SC ACHS Qty: 1 RF: 0 hydrocodone-acetaminophen 7.5-325 mg tablet 1 tab PO Q6H PRN (Reason: pain) Qty: 20 RF: 0 Continued [id number] [Osteo Bi-Flex Triple Strength] 750 mg-644 mg- 30 mg-1 mg tablet 1 tab PO BID RF: 0 allopurinol 300 mg tablet 300 mg PO DAILY Qty: 90 RF: 3 omeprazole 20 mg capsule,delayed release(DR/EC) 20 mg PO BID Qty: 180 RF: 1 levothyroxine 100 mcg tablet See Rx Instructions .ROUTE .COMPLEX Qty: 90 RF: 1 metformin 1,000 mg tablet 1,000 mg PO BID Qty: 180 RF: 1 atorvastatin 40 mg tablet 40 mg PO DAILY Qty: 90 RF: 2 fluticasone propionate [Flonase Allergy Relief] 50 mcg/actuation spray,suspension 2 spray INTNAS DAILY PRN (Reason: Allergy Symptoms) RF: 0 famotidine 40 mg tablet 40 mg PO HS Qty: 90 RF: 1 cetirizine 10 mg tablet 10 mg PO QAM RF: 0 Changed gabapentin 300 mg capsule 300 mg PO TID Qty: 120 RF: 1 Discontinued aspirin [Adult Aspirin Regimen] 81 mg tablet,delayed release (DR/EC) 81 mg PO DAILY RF: 0 ibuprofen 600 mg tablet 600 mg PO TID PRN (Reason: pain) RF: 0 naproxen sodium [Aleve] 220 mg tablet 220 mg PO BID RF: 0 glimepiride 2 mg tablet 2 mg PO DAILY Qty: 30 RF: 2 Discharge Orders: Discharge Order (Routine); Ordered 01/25/21 Ordered By: Haris Machuca/Other Patient Handouts: High Blood Sugar (Hyperglycemia), Hypoglycemia (Low Blood Sugar), Managing Type 2 Diabetes, Managing Diabetes: The A1C Test Admission Data Admit Date/Time: 01/17/21 21:37 Attending Provider: Haris Rojo Admit Provider: Diogo Villeda Primary Care Provider: Liz Kirby Other Providers: Filemon Quiroga ; Yonug Eckert ; [facility] Other Interventions: Discharge Summary Assessment (RN) Last Done: 01/25/21 18:31 Coding Level of Care Code D/C Day Management >30 mins Diagnoses Lumbar disc herniation with radiculopathy M51.16 Cauda equina compression G83.4 Radicular pain of both lower extremities M54.10 Tachycardia R00.0 Pulmonary embolism I26.99 DVT of leg (deep venous thrombosis) I82.409 Hypertension I10 GERD (gastroesophageal reflux disease) K21.9 Hypothyroidism E03.9 Dyslipidemia (high LDL; low HDL) E78.5 Diabetes E11.9 Urinary retention R33.9 Constipation K59.00 Taste impairment R43.2 Hyponatremia E87.1 Gout M10.9 Hx of testicular cancer Z85.47
== END 2021-01-25 18:50 | DRG 453 ==
LOC: ED 13:05 → 2N 21:37 → SUATTDRO 21:37 → 2N 22:27
DX: E03.9 Hypothyroidism, unspecified; M48.062 Spinal stenosis, lumbar region with neurogenic claudication; I26.99 Other pulmonary embolism without acute cor pulmonale; M10.9 Gout, unspecified; K21.9 Gastro-esophageal reflux disease without esophagitis; M51.16 Intervertebral disc disorders with radiculopathy, lumbar region; Z79.84 Long term (current) use of oral hypoglycemic drugs; Z87.891 Personal history of nicotine dependence; Z79.82 Long term (current) use of aspirin; Z79.899 Other long term (current) drug therapy; Z79.1 Long term (current) use of non-steroidal anti-inflammatories (NSAID); I10 Essential (primary) hypertension; G83.4 Cauda equina syndrome; R33.8 Other retention of urine; K59.2 Neurogenic bowel, not elsewhere classified; Z88.0 Allergy status to penicillin; R43.9 Unspecified disturbances of smell and taste; E11.9 Type 2 diabetes mellitus without complications; E78.5 Hyperlipidemia, unspecified; I82.451 Acute embolism and thrombosis of right peroneal vein; E87.1 Hypo-osmolality and hyponatremia; Z79.890 Hormone replacement therapy; M19.90 Unspecified osteoarthritis, unspecified site

== ENCOUNTER 2021-02-01 18:29 | Inpatient (IN) ==
[2021-02-01] MEDS ORDERED: VANCOMYCIN HCL 2,500 MG in SODIUM CHLORIDE 0.9% 500 ML IV ONE (18:43)
[2021-02-01] MEDS ORDERED: levoFLOXacin/D5W 750 MG/150 ML BAG IV STA (18:43)
[2021-02-01] MEDS ORDERED: VANCOMYCIN CONSULT ACTIVE PRN ×2 (18:43→21:37)
[2021-02-01] MEDS ORDERED: SODIUM CHLORIDE 0.9% 1000ML 1,000 ML IV SCH ×3 (18:45→20:44)
--- NOTE | 2021-02-01 18:49 | Emergency Department Note ---
History of Present Illness General Chief complaint: Fever Stated complaint: FEVER Time Seen by Provider: 02/01/21 18:33 Source: patient Mode of arrival: ambulatory Limitations: no limitations History of Present Illness Provider complaint: Fever This is a 70-year-old male who presents to the ED with a chief complaint of a fever. He has been at [facility] for rehab for the past couple of weeks since having a back surgery by Dr. Eckert. The patient was noted to have a fever today. He was given Tylenol just prior to being sent here by EMS. He did have a Gray catheter in place although that was removed because it was felt to not be working. He denies any cough or shortness of breath. Denies any chest pains. No abdominal pains. No recent upper respiratory illness. Does complain of some chronic pain in his legs related to his back but nothing new. No additional complaints at this time. Home Medications Medication Instructions Recorded Confirmed Type glucosamine 750 [id number] 1 tab PO BID 10/22/18 02/01/21 History no1 644 mg-C 30 mg-fabio 1 mg tablet allopurinol 300 mg tablet 300 mg PO DAILY #90 tab 07/26/20 02/01/21 Rx fluticasone propionate 50 2 spray INTNAS DAILY PRN ml 08/15/20 02/01/21 History mcg/actuation nasal spray,suspension famotidine 40 mg tablet 40 mg PO HS #90 tab 11/15/20 02/01/21 Rx metformin 1,000 mg tablet 1,000 mg PO BID #180 tab 01/10/21 02/01/21 Rx gabapentin 300 mg PO TID #120 cap 01/25/21 02/01/21 Rx acetaminophen 650 mg PO Q4 PRN 02/01/21 02/01/21 History apixaban [Eliquis] 5 mg PO BID 02/01/21 02/01/21 History atorvastatin 40 mg PO HS 02/01/21 02/01/21 History docusate sodium 100 mg PO BID PRN 02/01/21 02/01/21 History glimepiride 2 mg PO DAILY 02/01/21 02/01/21 History hydrocodone-acetaminophen 1 tab PO Q6H PRN 02/01/21 02/01/21 History levothyroxine 112 mcg PO DAILY 02/01/21 02/01/21 History loratadine 10 mg PO DAILY 02/01/21 02/01/21 History metoprolol succinate 25 mg PO DAILY 02/01/21 02/01/21 History ondansetron [Zofran ODT] 4 mg PO Q6H PRN 02/01/21 02/01/21 History pantoprazole 40 mg PO DAILYBB 02/01/21 02/01/21 History polyethylene glycol 3350 [Miralax] 17 g PO .DAILY AT LUNCH PRN 02/01/21 02/01/21 History psyllium [Metamucil] 1 packet PO DAILY 02/01/21 02/01/21 History sennosides-docusate sodium 1 tab PO .DAILY AT LUNCH PRN 02/01/21 02/01/21 History [Senokot-S] Allergies Allergy/AdvReac Type Severity Reaction Status Date / Time Penicillins Allergy Intermediate HIGH Verified 02/01/21 19:30 FEVER, RASH (NOTED ALLERGIC TO "ANY-CILLIN" bee pollen Allergy Unknown Verified 02/01/21 19:30 Past Med/Surg History Medical History (Updated 02/01/21 @ 22:11 by Jason Best DO) Allergic rhinitis Cauda equina syndrome Constipation Diabetes Dyslipidemia (high LDL; low HDL) GERD (gastroesophageal reflux disease) Hx of testicular cancer Hypertension Hypothyroidism Lumbar disc disease Lumbar disc herniation with radiculopathy Lumbar pain with radiation down both legs Osteoarthritis Spinal stenosis, lumbar region with neurogenic claudication Urinary retention Surgical History Hx of lumbosacral spine surgery Hx of total hip arthroplasty S/P orchiopexy 1975 Family History Father Lung cancer Cancer brain Mother Diabetes Uncle Prostate cancer Grandmother (Paternal) Stroke Family/Other Colorectal cancer Breast cancer Myocardial infarction Grandfather (Maternal) Rheumatoid arthritis Denies family history of Ovarian cancer Social History Smoking Status: Former smoker Age Quit Using Tobacco: 65; packs per day: 0.5; Years Smoked: 24; Second Hand Exposure: No; Hx Alcohol Use: Yes Alcohol Intake Frequency: Monthly or Less Hx Substance Use: No Preferred Language: Welsh Communication Ability: Effective Visual Impairment: No Limitations Hearing Ability: Normal Python Engineer Required: No Beliefs That Will Affect Care: None marital status: Current Living Situation: Spouse current occupational status: retired Feels Safe at Home: Yes Childhood Exposure to Second-Hand Smoke: No Diet Comment: eats what he wants to caffeine: Yes during the past year weight has: decreased > 10 lbs Dental Care, Regularly: No Physical Activity Frequency: Other Physical Activity Frequency Comment: house chores Seatbelt Use: never Sunscreen Use: No Assistive Devices: None Review of Systems A total of 10 systems reviewed and were otherwise negative Physical Exam Vital Signs Vital Signs - 24 hr 02/01/21 18:30 02/01/21 18:33 02/01/21 18:43 Temperature 39.5 C H Temperature Source Oral Pulse Rate 115 H 116 H Pulse Rate from SpO2 Sensor Pulse Rhythm Regular Pulse Strength Normal Respiratory Rate 26 H 20 20 Respiratory Effort / Characteristics Non-Labored Spontaneous Non-Labored Spontaneous Respiratory Depth Normal Respiratory Pattern Regular Blood Pressure 173/98 H 173/98 H Blood Pressure Mean 123 123 Blood Pressure Position Sitting Pulse Oximetry 95 94 Oxygen Delivery Method Room Air Room Air Sepsis Recent Fever Within 48 Hours Yes Sepsis New/Unexplained Change in Mental Status No Sepsis Action Taken by Nursing Physician Notified 02/01/21 18:57 02/01/21 19:00 02/01/21 19:30 Temperature Temperature Source Pulse Rate 114 H 112 H Pulse Rate from SpO2 Sensor 113 H Pulse Rhythm Pulse Strength Respiratory Rate 25 H 23 Respiratory Effort / Characteristics Respiratory Depth Respiratory Pattern Blood Pressure 214/110 H 159/108 H Blood Pressure Mean 144 125 Blood Pressure Position Pulse Oximetry 97 Oxygen Delivery Method Room Air Sepsis Recent Fever Within 48 Hours Sepsis New/Unexplained Change in Mental Status Sepsis Action Taken by Nursing 02/01/21 20:00 02/01/21 20:19 02/01/21 20:30 Temperature 38.8 C H Temperature Source Oral Pulse Rate 111 H 110 H Pulse Rate from SpO2 Sensor 110 H 111 H Pulse Rhythm Pulse Strength Respiratory Rate 25 H 25 H Respiratory Effort / Characteristics Respiratory Depth Respiratory Pattern Blood Pressure 180/109 H 157/86 H Blood Pressure Mean 132 109 Blood Pressure Position Pulse Oximetry 94 94 Oxygen Delivery Method Sepsis Recent Fever Within 48 Hours Sepsis New/Unexplained Change in Mental Status Sepsis Action Taken by Nursing CONSTITUTIONAL/VITAL SIGNS: Reviewed / noted above. GENERAL: Non-toxic in appearance. INTEGUMENTARY: Warm, dry, and [place]. HEAD: Normocephalic. EYES: without scleral icterus or trauma. ENT/OROPHARYNX: clear and moist. LYMPHADENOPATHY/NECK: Is supple without lymphadenopathy or meningismus. RESPIRATORY: Lungs clear but diminished and equal. CARDIOVASCULAR: Regular rate and rhythm. GI/ABDOMEN: Soft and nontender. No organomegaly or pulsatile mass. No rebound or guarding. Normal bowel sounds. EXTREMITIES: Warm and well perfused. BACK: No CVA tenderness. Surgical wound appears to be healing well. There is no discharge or redness. NEUROLOGICAL: Intact with weakness in the legs. This is since his surgery. PSYCHIATRIC: normal affect. MUSCULOSKELETAL: Normally developed with some muscle atrophy in the lower extremities. TRIAGE NURSING DOCUMENTATION REVIEWED. Course Administered Medications Discontinued Medications Vancomycin HCl 2,500 mg/ (Sodium Chloride) 550 mls @ 200 mls/hr IV NOW ONE Stop: 02/01/21 21:27 Last Admin: 02/01/21 19:32 Dose: 200 mls/hr Documented by: [id number] Sodium Chloride (Nss 1000ml) 1,000 mls @ 999 mls/hr IV .Q1H1M NOAH Stop: 02/01/21 19:44 Last Infusion: 02/01/21 21:02 Dose: 0 mls/hr Documented by: [id number] Admin: 02/01/21 19:13 Dose: 999 mls/hr Documented by: [id number] Sodium Chloride (Nss 1000ml) 1,000 mls @ 999 mls/hr IV .Q1H1M NOAH Stop: 02/01/21 20:43 Last Infusion: 02/01/21 21:02 Dose: 0 mls/hr Documented by: [id number] Admin: 02/01/21 19:32 Dose: 999 mls/hr Documented by: [id number] Sodium Chloride (Nss 1000ml) 1,000 mls @ 999 mls/hr IV .Q1H1M NOAH Stop: 02/01/21 21:44 Last Admin: 02/01/21 21:02 Dose: 999 mls/hr Documented by: [id number] Levofloxacin/Dextrose (Levaquin/D5w) 750 mg in 150 mls @ 100 mls/hr IV NOW STA Stop: 02/01/21 20:12 Last Infusion: 02/01/21 21:02 Dose: 0 mls/hr Documented by: [id number] Admin: 02/01/21 19:32 Dose: 100 mls/hr Documented by: [id number] Critical Care Time Critical Care Time: Yes Total Critical Care Time: 35 I have personally spent 35 minutes of critical care time in the direct management of this patient. This includes bedside care, interpretation of diagnostic studies, and testing, discussion with consultants, patient, and family members, and other required patient management activities. This 35 minutes is in excess of all separately billable procedures. Medical Decision Making Differential Diagnosis Differential includes viral illness, influenza, streptococcal pharyngitis, meningitis, pneumonia, sinusitis, UTI, pyelonephritis, otitis media. Medical Records Attestation: I reviewed the patient's medical records. Home Medications Current Medication List: was personally reviewed by me Laboratory Data Attestation: I reviewed the patient's lab results. Result diagrams: 02/01/21 18:43 02/01/21 18:43 Lab Results 02/01/21 02/01/21 02/01/21 Range/Units 18:40 18:43 18:43 WBC 21.76 H (4.8-10.8) K/uL RBC 4.42 L (4.7-6.1) M/uL Hgb 13.6 L (14.0-18.0) g/dL Hct 38.4 L (42-52) % MCV 86.9 (80-100) fL MCH 30.8 (25-34) pg MCHC 35.4 (32-36) g/dL RDW Std Deviation 39.7 (36.4-46.3) fL RDW Coeff of Radha 12.4 (11.5-14.5) % Plt Count 362 (130-400) K/uL MPV 10.8 H (7.4-10.4) fL Immature Gran % (Auto) 0.3 % Neut % (Auto) 86.1 % Lymph % (Auto) 6.2 % Ross % (Auto) 6.9 % Eos % (Auto) 0.3 % Baso % (Auto) 0.2 % Neut # (Auto) 18.73 H (1.4-6.5) K/uL Lymph # (Auto) 1.35 (1.2-3.4) K/uL Ross # (Auto) 1.51 H (0.11-0.59) K/uL Eos # (Auto) 0.07 (0-0.5) K/uL Baso # (Auto) 0.04 (0-0.2) K/uL Immature Gran # (Auto) 0.06 H (0.00-0.02) K/uL PT 10.9 (9.0-12.0) Seconds INR 1.1 (0.9-1.1) APTT 25.9 (21.0-31.0) Seconds PTT Ratio 1.0 Sodium (136-145) mmol/L Potassium (3.5-5.1) mmol/L Chloride (98-107) mmol/L Carbon Dioxide (21-32) mmol/L Anion Gap (3-11) BUN (7-18) mg/dl Creatinine (0.6-1.4) mg/dl Est Cr Clr Drug Dosing ml/min Est GFR ( Amer) ml/min Est GFR (Non-Af Amer) ml/min BUN/Creatinine Ratio (10-20) Glucose (70-99) mg/dl Lactate (0.4-2.0) mmol/L Calcium (8.5-10.1) mg/dl Magnesium (1.8-2.4) mg/dl Total Bilirubin (0.2-1) mg/dl AST (15-37) U/L ALT (12-78) U/L Alkaline Phosphatase (45-117) U/L Troponin I (0-0.045) ng/ml Total Protein (6.4-8.2) gm/dl Albumin (3.4-5.0) gm/dl Globulin (2.5-4.0) gm/dl Albumin/Globulin Ratio (0.9-2) Procalcitonin 0.13 (0-0.5) ng/ml Urine Color Urine Appearance (Clear) Urine pH (4.5-7.5) Ur Specific Myton (1.000-1.030) Urine Protein (Negative) Urine Glucose (UA) (Negative) Urine Ketones (Negative) Urine Blood (Negative) Urine Nitrite (Negative) Urine Bilirubin (Negative) Urine Urobilinogen (Negative) Ur Leukocyte Esterase (Negative) Urine WBC (Auto) (0-5) /hpf Urine RBC (Auto) (0-4) /hpf U Hyaline Cast (Auto) (0-5) /lpf U Epithel Cells (Auto) (0-5) /lpf Urine Bacteria (Auto) (Negative) COVID-19 Eval Order SARS-CoV-2 (PCR) (Negative) 02/01/21 02/01/21 02/01/21 Range/Units 18:43 18:58 19:12 WBC (4.8-10.8) K/uL RBC (4.7-6.1) M/uL Hgb (14.0-18.0) g/dL Hct (42-52) % MCV (80-100) fL MCH (25-34) pg MCHC (32-36) g/dL RDW Std Deviation (36.4-46.3) fL RDW Coeff of Radha (11.5-14.5) % Plt Count (130-400) K/uL MPV (7.4-10.4) fL Immature Gran % (Auto) % Neut % (Auto) % Lymph % (Auto) % Ross % (Auto) % Eos % (Auto) % Baso % (Auto) % Neut # (Auto) (1.4-6.5) K/uL Lymph # (Auto) (1.2-3.4) K/uL Ross # (Auto) (0.11-0.59) K/uL Eos # (Auto) (0-0.5) K/uL Baso # (Auto) (0-0.2) K/uL Immature Gran # (Auto) (0.00-0.02) K/uL PT (9.0-12.0) Seconds INR (0.9-1.1) APTT (21.0-31.0) Seconds PTT Ratio Sodium 134 L (136-145) mmol/L Potassium 3.9 (3.5-5.1) mmol/L Chloride 95 L (98-107) mmol/L Carbon Dioxide 31 (21-32) mmol/L Anion Gap 8.0 (3-11) BUN 19 H (7-18) mg/dl Creatinine 1.06 (0.6-1.4) mg/dl Est Cr Clr Drug Dosing 84.7 ml/min Est GFR ( Amer) 82.6 ml/min Est GFR (Non-Af Amer) 71.3 ml/min BUN/Creatinine Ratio 17.7 (10-20) Glucose 174 H (70-99) mg/dl Lactate (0.4-2.0) mmol/L Calcium 8.9 (8.5-10.1) mg/dl Magnesium 1.9 (1.8-2.4) mg/dl Total Bilirubin 0.6 (0.2-1) mg/dl AST 8 L (15-37) U/L ALT 24 (12-78) U/L Alkaline Phosphatase 104 (45-117) U/L Troponin I < 0.015 (0-0.045) ng/ml Total Protein 7.9 (6.4-8.2) gm/dl Albumin 3.4 (3.4-5.0) gm/dl Globulin 4.5 H (2.5-4.0) gm/dl Albumin/Globulin Ratio 0.8 L (0.9-2) Procalcitonin (0-0.5) ng/ml Urine Color Yellow Urine Appearance Clear (Clear) Urine pH 5.0 (4.5-7.5) Ur Specific Myton 1.031 H (1.000-1.030) Urine Protein 1+ H (Negative) Urine Glucose (UA) 3+ H (Negative) Urine Ketones Trace H (Negative) Urine Blood 2+ H (Negative) Urine Nitrite Negative (Negative) Urine Bilirubin Negative (Negative) Urine Urobilinogen Negative (Negative) Ur Leukocyte Esterase 1+ H (Negative) Urine WBC (Auto) >30 H (0-5) /hpf Urine RBC (Auto) 10-30 H (0-4) /hpf U Hyaline Cast (Auto) 10-30 H (0-5) /lpf U Epithel Cells (Auto) 0-5 (0-5) /lpf Urine Bacteria (Auto) Negative (Negative) COVID-19 Eval Order Covid19 at [facility] SARS-CoV-2 (PCR) (Negative) 02/01/21 02/01/21 Range/Units 19:12 19:26 WBC (4.8-10.8) K/uL RBC (4.7-6.1) M/uL Hgb (14.0-18.0) g/dL Hct (42-52) % MCV (80-100) fL MCH (25-34) pg MCHC (32-36) g/dL RDW Std Deviation (36.4-46.3) fL RDW Coeff of Radha (11.5-14.5) % Plt Count (130-400) K/uL MPV (7.4-10.4) fL Immature Gran % (Auto) % Neut % (Auto) % Lymph % (Auto) % Ross % (Auto) % Eos % (Auto) % Baso % (Auto) % Neut # (Auto) (1.4-6.5) K/uL Lymph # (Auto) (1.2-3.4) K/uL Ross # (Auto) (0.11-0.59) K/uL Eos # (Auto) (0-0.5) K/uL Baso # (Auto) (0-0.2) K/uL Immature Gran # (Auto) (0.00-0.02) K/uL PT (9.0-12.0) Seconds INR (0.9-1.1) APTT (21.0-31.0) Seconds PTT Ratio Sodium (136-145) mmol/L Potassium (3.5-5.1) mmol/L Chloride (98-107) mmol/L Carbon Dioxide (21-32) mmol/L Anion Gap (3-11) BUN (7-18) mg/dl Creatinine (0.6-1.4) mg/dl Est Cr Clr Drug Dosing ml/min Est GFR ( Amer) ml/min Est GFR (Non-Af Amer) ml/min BUN/Creatinine Ratio (10-20) Glucose (70-99) mg/dl Lactate 1.8 (0.4-2.0) mmol/L Calcium (8.5-10.1) mg/dl Magnesium (1.8-2.4) mg/dl Total Bilirubin (0.2-1) mg/dl AST (15-37) U/L ALT (12-78) U/L Alkaline Phosphatase (45-117) U/L Troponin I (0-0.045) ng/ml Total Protein (6.4-8.2) gm/dl Albumin (3.4-5.0) gm/dl Globulin (2.5-4.0) gm/dl Albumin/Globulin Ratio (0.9-2) Procalcitonin (0-0.5) ng/ml Urine Color Urine Appearance (Clear) Urine pH (4.5-7.5) Ur Specific Myton (1.000-1.030) Urine Protein (Negative) Urine Glucose (UA) (Negative) Urine Ketones (Negative) Urine Blood (Negative) Urine Nitrite (Negative) Urine Bilirubin (Negative) Urine Urobilinogen (Negative) Ur Leukocyte Esterase (Negative) Urine WBC (Auto) (0-5) /hpf Urine RBC (Auto) (0-4) /hpf U Hyaline Cast (Auto) (0-5) /lpf U Epithel Cells (Auto) (0-5) /lpf Urine Bacteria (Auto) (Negative) COVID-19 Eval Order SARS-CoV-2 (PCR) NEGATIVE (Negative) Imaging Data Attestation: I personally reviewed and interpreted this imaging study as follow s: My Impression: Chest x-ray per my interpretation there is no acute process. No pneumonia. No pneumothorax. Radiologist's Impression: Chest X-Ray 02/01/21 18:43 SINGLE VIEW CHEST CLINICAL HISTORY: Sepsis. FINDINGS: An AP, portable, upright chest radiograph is compared to study dated 09/21/2016 and correlated with chest CT dated 01/23/2021. The heart is top normal for projection noting atherosclerotic calcification of the thoracic aorta. There is mild bibasilar atelectasis. No airspace consolidation or large pleural effusion is identified. No pneumothorax is seen. The bony thorax is grossly intact. Atherosclerotic calcification is noted in the right carotid bulb. IMPRESSION: No acute cardiopulmonary abnormality. ACT 112: Negative or not required by law. Electronically signed by: Morris Coburn M.D. 02/01/2021 9:06 PM MDM Narrative Patient presents with a fever from [place] [facility]. Details above. Temperature here is 39.5. Tachycardia at 116. Blood pressure is elevated. Exam was rather unrevealing. The patient's white blood cell count is 21.7. Hemoglobin is baseline at 13.6. Chemistry panel was unremarkable. Glucose was 174. Troponin is negative. Urine is suggestive of infection. Chest x-ray did not show any obvious pneumonia. Procalcitonin was normal. The patient was given empiric antibiotics with Levaquin IV and vancomycin IV. He was given 3 L normal saline IV. He will be seen by the hospitalist for further evaluation and care. Cardiac monitoring: An order was placed for continuous cardiac monitoring. The monitor shows a rate of 110 with sinus rhythm. Impression & Plan Sepsis, Acute UTI Discharge Plan Visit Data Chief Complaint: Fever Stated Complaint: FEVER ED Provider: Jason Best Discharge Problem: Sepsis, Acute UTI Patient Disposition: Admitted As Inpatient Discharge Instructions Interventions: ED Discharge Assessment Last Done: 02/01/21 21:03 Discharge Problem: Sepsis Qualifiers: Sepsis type: sepsis due to unspecified organism Sepsis acute organ dysfunction status: with acute organ dysfunction Severe sepsis acute organ dysfunction type: unspecified
[2021-02-01 18:57] LABS: Basophils # (auto) 0.04 K/uL (0-0.2); Basophils % (auto) 0.2 %; Eosinophils # (auto) 0.07 K/uL (0-0.5); Eosinophils % (auto) 0.3 %; Hematocrit (blood only) 38.4 % (42-52); Hemoglobin 13.6 g/dL (14.0-18.0); Immature Granulocytes # (auto) 0.06 K/uL (0.00-0.02); Immature Granulocytes % (auto) 0.3 %; Lymphocytes # (auto) 1.35 K/uL (1.2-3.4); Lymphocytes % (auto) 6.2 %; Mean Corpuscular Hemoglobin 30.8 pg (25-34); Mean Corpuscular Hgb Conc 35.4 g/dL (32-36); Mean Corpuscular Volume 86.9 fL (80-100); Mean Platelet Volume 10.8 fL (7.4-10.4); Monocytes # (auto) 1.51 K/uL (0.11-0.59); Monocytes % (auto) 6.9 %; Neutrophils # (auto) 18.73 K/uL (1.4-6.5); Neutrophils % (auto) 86.1 %; Platelet Count 362 K/uL (130-400); RDW Coefficient of Variation 12.4 % (11.5-14.5); RDW Standard Deviation 39.7 fL (36.4-46.3); Red Blood Count 4.42 M/uL (4.7-6.1); White Blood Count 21.76 K/uL (4.8-10.8)
[2021-02-01 19:08] LABS: INR 1.1 (0.9-1.1); Partial Thromboplastin Time 25.9 Seconds (21.0-31.0); Prothrombin Time 10.9 Seconds (9.0-12.0)
[2021-02-01 19:09] LABS: Appearance Urine Clear (Clear); Bacteria Urine Automated Negative (Negative); Bilirubin Urine Negative (Negative); Blood Urine 2+ (Negative); Color Urine Yellow; Epithelial Cell Urine Auto 0-5 /lpf (0-5); Glucose Urine UA 3+ (Negative); Ketones Urine Trace (Negative); Leukocyte Esterase Urine 1+ (Negative); Nitrite Urine Negative (Negative); Protein Urine 1+ (Negative); Specific Gravity Urine 1.031 (1.000-1.030); Urobilinogen Urine Negative (Negative); WBC Urine Automated >30 /hpf (0-5)
[2021-02-01 19:15] LABS: Alanine Aminotransferase 24 U/L (12-78); Albumin Level 3.4 gm/dl (3.4-5.0); Aspartate Aminotransferase 8 U/L (15-37); BUN Creatinine Ratio 17.7 (10-20); Blood Urea Nitrogen 19 mg/dl (7-18); Calcium 8.9 mg/dl (8.5-10.1); Carbon Dioxide 31 mmol/L (21-32); Chloride 95 mmol/L (98-107); Creatinine Clr Calc Pharmacy 84.7 ml/min; Est GFR (African American) 82.6 ml/min; Est GFR (Non-African American) 71.3 ml/min; Glucose 174 mg/dl (70-99); Magnesium 1.9 mg/dl (1.8-2.4); Potassium 3.9 mmol/L (3.5-5.1); Sodium 134 mmol/L (136-145)
[2021-02-01 19:20] LABS: Albumin Globulin Ratio 0.8 (0.9-2); Alkaline Phosphatase 104 U/L (45-117); Bilirubin,Total 0.6 mg/dl (0.2-1); Globulin 4.5 gm/dl (2.5-4.0); Total Protein 7.9 gm/dl (6.4-8.2); Troponin I < 0.015 ng/ml (0-0.045)
--- NOTE | 2021-02-01 21:07 | XRay Report ---
SINGLE VIEW CHEST CLINICAL HISTORY: Sepsis. FINDINGS: An AP, portable, upright chest radiograph is compared to study dated 09/21/2016 and correla ramana with chest CT dated 01/23/2021. The heart is top normal for projection noting atherosclerotic calci fication of the thoracic aorta. There is mild bibasilar atelectasis. No airspace consolidation or lar ge pleural effusion is identified. No pneumothorax is seen. The bony thorax is grossly intact. Athero sclerotic calcification is noted in the right carotid bulb. IMPRESSION: No acute cardiopulmonary abnormality. ACT 112: Negative or not required by law. Electronically signed by: Morris Coburn M.D. 02/01/2021 9:06 PM
[2021-02-01] MEDS ORDERED: GLUCOSE 40% GEL 15 GM TUBE PO PRN (21:37)
[2021-02-01] MEDS ORDERED: HYDROCODONE/ACETAMINOPHEN 7.5/325MG TAB PO PRN (21:37)
[2021-02-01] MEDS ORDERED: VANCOMYCIN HCL 1,000 MG in SODIUM CHLORIDE 0.9% 250 ML IV SCH (21:37)
[2021-02-01] MEDS ORDERED: POLYETHYLENE (MIRALAX) 17 GM PACK PO PRN (21:37)
[2021-02-01] MEDS ORDERED: CARBOHYDRATES FOR HYPOGLYCEMIA PO PRN (21:37)
[2021-02-01] MEDS ORDERED: DEXTROSE 50% 50 ML SYRINGE IV PRN (21:37)
[2021-02-01] MEDS ORDERED: GLUCAGON FOR INJ 1 MG VIAL SQ PRN (21:37)
[2021-02-01] MEDS ORDERED: DOCUSATE SODIUM 100 MG CAP PO PRN (21:37)
[2021-02-01] MEDS ORDERED: NON-FORMULARY MEDICATION (Glucosam-Chon-Msm1-C-Mang-Bosw [Osteo Bi-Flex Triple Strength] 7 PO SCH (21:37)
[2021-02-01] MEDS ORDERED: FLUTICASONE PROPIONATE NA SPR 16 GM BTL NAE PRN (21:37)
[2021-02-01] MEDS ORDERED: DOCUSATE SODIUM/SENNA 50/8.6MG TAB PO PRN (21:37)
[2021-02-01] MEDS ORDERED: ONDANSETRON INJ 2 MG/ML 2 ML VIAL IV PRN (21:37)
[2021-02-01] MEDS ORDERED: GLUCOSE 10 TAB/TUBE PO PRN (21:37)
--- NOTE | 2021-02-01 21:53 | History & Physical Report ---
Date of Service February 01, 2021 Assessment & Plan (1) Acute UTI: Follow urine culture and sensitivity Empiric vancomycin IV and levofloxacin IV, as patient has severe penicillin allergy IV fluids Continue Gray catheter Present on Admission?: Yes (2) Cauda equina compression: Cauda equina compression/lumbar spinal stenosis with neurogenic claudication- We will continue PT/OT patient is strong enough Continue [place], gabapentin Present on Admission?: Yes (3) Spinal stenosis, lumbar region with neurogenic claudication: See above Present on Admission?: Yes (4) Diabetes: Hold Metformin and glimepiride. Placed on Accu-Cheks before meals and at bedtime with NovoLog coverage per scale Present on Admission?: Yes (5) GERD (gastroesophageal reflux disease): Continue pantoprazole Present on Admission?: Yes (6) Hypertension: Continue metoprolol succinate Present on Admission?: Yes (7) Hypothyroidism: Continue levothyroxine 112 mcg daily Present on Admission?: Yes (8) Gout: Continue allopurinol Present on Admission?: Yes Admission and Anticipated Discharge Date Admission Date: February 01, 2021 History of Present Illness Chief Complaint: The patient presents to the emergency department with complaint of fever that developed at [facility] Primary Care Provider: Liz Kirby DO The patient is a 70-year-old male with a past medical history including lumbar disc disease, cauda equina compression, testicular cancer, lumbar radiculopathy, lumbar spinal stenosis with neurogenic claudication, GERD, hypertension, allergic rhinitis, hypothyroidism, diabetes mellitus, hyperlipidemia and gout. His most recently been admitted to [facility] from 01/17-01/25/2021 after having undergone lumbar surgery by Dr. Eckert for cauda equina compression. During that admission, he had had a Gray catheter placed and had then been discontin ued. Patient did report today that he also began to have difficulty with urination. Allergies Allergy/AdvReac Type Severity Reaction Status Date / Time Penicillins Allergy Intermediate HIGH Verified 02/01/21 19:30 FEVER, RASH (NOTED ALLERGIC TO "ANY-CILLIN" bee pollen Allergy Unknown Verified 02/01/21 19:30 Home Medications Medication Instructions Recorded Confirmed Type glucosamine 750 [id number] 1 tab PO BID 10/22/18 02/01/21 History no1 644 mg-C 30 mg-fabio 1 mg tablet allopurinol 300 mg tablet 300 mg PO DAILY #90 tab 07/26/20 02/01/21 Rx fluticasone propionate 50 2 spray INTNAS DAILY PRN ml 08/15/20 02/01/21 History mcg/actuation nasal spray,suspension famotidine 40 mg tablet 40 mg PO HS #90 tab 11/15/20 02/01/21 Rx metformin 1,000 mg tablet 1,000 mg PO BID #180 tab 01/10/21 02/01/21 Rx gabapentin 300 mg PO TID #120 cap 01/25/21 02/01/21 Rx acetaminophen 650 mg PO Q4 PRN 02/01/21 02/01/21 History apixaban [Eliquis] 5 mg PO BID 02/01/21 02/01/21 History atorvastatin 40 mg PO HS 02/01/21 02/01/21 History docusate sodium 100 mg PO BID PRN 02/01/21 02/01/21 History glimepiride 2 mg PO DAILY 02/01/21 02/01/21 History hydrocodone-acetaminophen 1 tab PO Q6H PRN 02/01/21 02/01/21 History levothyroxine 112 mcg PO DAILY 02/01/21 02/01/21 History loratadine 10 mg PO DAILY 02/01/21 02/01/21 History metoprolol succinate 25 mg PO DAILY 02/01/21 02/01/21 History ondansetron [Zofran ODT] 4 mg PO Q6H PRN 02/01/21 02/01/21 History pantoprazole 40 mg PO DAILYBB 02/01/21 02/01/21 History polyethylene glycol 3350 [Miralax] 17 g PO .DAILY AT LUNCH PRN 02/01/21 02/01/21 History psyllium [Metamucil] 1 packet PO DAILY 02/01/21 02/01/21 History sennosides-docusate sodium 1 tab PO .DAILY AT LUNCH PRN 02/01/21 02/01/21 History [Senokot-S] Past Med/Surg History Medical History (Updated 02/02/21 @ 00:00 by Filemon Quiroga MD) Allergic rhinitis Cauda equina syndrome Constipation Diabetes Dyslipidemia (high LDL; low HDL) GERD (gastroesophageal reflux disease) Gout Hx of testicular cancer Hypertension Hypothyroidism Lumbar disc disease Lumbar disc herniation with radiculopathy Lumbar pain with radiation down both legs Osteoarthritis Spinal stenosis, lumbar region with neurogenic claudication Urinary retention Surgical History Hx of lumbosacral spine surgery Hx of total hip arthroplasty S/P orchiopexy 1975 Family History Father Lung cancer Cancer brain Mother Diabetes Uncle Prostate cancer Grandmother (Paternal) Stroke Family/Other Colorectal cancer Breast cancer Myocardial infarction Grandfather (Maternal) Rheumatoid arthritis Denies family history of Ovarian cancer Social History Smoking Status: Former smoker Age Quit Using Tobacco: 65; packs per day: 0.5; Years Smoked: 24; Second Hand Exposure: No; Do You Dip or Chew Tobacco: No; Tobacco Cessation Education Requested by Patient: No Hx Alcohol Use: Yes Alcohol Intake Frequency: Monthly or Less Hx Substance Use: No Preferred Language: Maori Communication Ability: Effective Visual Impairment: No Limitations Hearing Ability: Normal 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 has been at [facility] in [place] for past week current occupational status: retired Other Information That Helps Us Care for You: No Feels Safe at Home: Yes Safety Concerns: Feels Safe At This Time Childhood Exposure to Second-Hand Smoke: No Diet Comment: eats what he wants to caffeine: Yes during the past year weight has: decreased > 10 lbs Dental Care, Regularly: No Physical Activity Frequency: Other Physical Activity Frequency Comment: house chores Seatbelt Use: never Sunscreen Use: No Assistive Devices: None Review of Systems Review of Systems: The patient denies chest pain, palpitations, shortness of breath, dyspnea on exertion, cough, lower extremity swelling, sore throat, chills, sweats, nausea, vomiting, diarrhea , constipation, abdominal pain, pelvic pain, blood in urine or stool, lightheadedness, dizziness, headache, memory loss, loss of consciousness, rash, abnormal bruising or bleeding, imbalance, focal or generalized weakness, numbness or tingling in arms, generalized arthralgias or myalgias, neck pain, or night sweats. The review of systems is otherwise negative other than for that already noted above, and at least 10 systems have been reviewed. Physical Exam Physical Exam: The patient is awake, alert and oriented 3, well developed and well nourished, normocephalic and atraumatic, lying in bed and in no acute distress. HEENT--PERRL, EOMI, mucous membranes and oropharynx normal. Neck--supple. No JVD. No bruits. Thyroid normal, trachea midline, no adenopathy. Heart--normal S1 and S2. No murmurs, rubs or gallops. Lungs--clear bilaterally, no respiratory distress, no accessory muscle use. Abdomen--normal bowel sounds and soft. Nontender. Nondistended. Extremities--no cyanosis or clubbing. No edema. Dermatologic--normal skin turgor, normal color, no abnormal lymph nodes, no rash. Neurologic--cranial nerves II through XII grossly intact. Rheumatologic--normal range of motion. Psychiatric--normal affect. Results & Data Results & Data ([facility]) Vital Signs (Past 12 Hours) Vital Signs Temp Pulse Resp BP Pulse Ox 02/01/21 21:00 113 H 23 150/109 H 96 02/01/21 20:30 110 H 25 H 157/86 H 94 02/01/21 20:19 101.8 F H 02/01/21 20:00 111 H 25 H 180/109 H 94 02/01/21 19:30 112 H 23 159/108 H 97 02/01/21 19:00 114 H 25 H 214/110 H 02/01/21 18:43 20 94 02/01/21 18:33 103.1 F H 116 H 20 173/98 H 95 02/01/21 18:30 115 H 26 H 173/98 H Laboratory Results Laboratory Results WBC 21.76 K/uL (4.8-10.8) H 02/01/21 18:43 RBC 4.42 M/uL (4.7-6.1) L 02/01/21 18:43 Hgb 13.6 g/dL (14.0-18.0) L 02/01/21 18:43 Hct 38.4 % (42-52) L 02/01/21 18:43 MCV 86.9 fL (80-100) 02/01/21 18:43 MCH 30.8 pg (25-34) 02/01/21 18:43 MCHC 35.4 g/dL (32-36) 02/01/21 18:43 RDW Std Deviation 39.7 fL (36.4-46.3) 02/01/21 18:43 RDW Coeff of Radha 12.4 % (11.5-14.5) 02/01/21 18:43 Plt Count 362 K/uL (130-400) 02/01/21 18:43 MPV 10.8 fL (7.4-10.4) H 02/01/21 18:43 Immature Gran % (Auto) 0.3 % 02/01/21 18:43 Neut % (Auto) 86.1 % 02/01/21 18:43 Lymph % (Auto) 6.2 % 02/01/21 18:43 Divide % (Auto) 6.9 % 02/01/21 18:43 Eos % (Auto) 0.3 % 02/01/21 18:43 Baso % (Auto) 0.2 % 02/01/21 18:43 Neut # (Auto) 18.73 K/uL (1.4-6.5) H 02/01/21 18:43 Lymph # (Auto) 1.35 K/uL (1.2-3.4) 02/01/21 18:43 Divide # (Auto) 1.51 K/uL (0.11-0.59) H 02/01/21 18:43 Eos # (Auto) 0.07 K/uL (0-0.5) 02/01/21 18:43 Baso # (Auto) 0.04 K/uL (0-0.2) 02/01/21 18:43 Immature Gran # (Auto) 0.06 K/uL (0.00-0.02) H 02/01/21 18:43 PT 10.9 Seconds (9.0-12.0) 02/01/21 18:43 INR 1.1 (0.9-1.1) 02/01/21 18:43 APTT 25.9 Seconds (21.0-31.0) 02/01/21 18:43 PTT Ratio 1.0 02/01/21 18:43 Sodium 134 mmol/L (136-145) L 02/01/21 18:43 Potassium 3.9 mmol/L (3.5-5.1) 02/01/21 18:43 Chloride 95 mmol/L (98-107) L 02/01/21 18:43 Carbon Dioxide 31 mmol/L (21-32) 02/01/21 18:43 Anion Gap 8.0 (3-11) 02/01/21 18:43 BUN 19 mg/dl (7-18) H 02/01/21 18:43 Creatinine 1.06 mg/dl (0.6-1.4) 02/01/21 18:43 Est Cr Clr Drug Dosing 84.7 ml/min 02/01/21 18:43 Est GFR ( Amer) 82.6 ml/min 02/01/21 18:43 Est GFR (Non-Af Amer) 71.3 ml/min 02/01/21 18:43 BUN/Creatinine Ratio 17.7 (10-20) 02/01/21 18:43 Glucose 174 mg/dl (70-99) H 02/01/21 18:43 POC Glucose 207 mg/dl (70-99) H 02/01/21 21:53 Lactate 1.8 mmol/L (0.4-2.0) 02/01/21 19:26 Calcium 8.9 mg/dl (8.5-10.1) 02/01/21 18:43 Magnesium 1.9 mg/dl (1.8-2.4) 02/01/21 18:43 Total Bilirubin 0.6 mg/dl (0.2-1) 02/01/21 18:43 AST 8 U/L (15-37) L 02/01/21 18:43 ALT 24 U/L (12-78) 02/01/21 18:43 Alkaline Phosphatase 104 U/L (45-117) 02/01/21 18:43 Troponin I < 0.015 ng/ml (0-0.045) 02/01/21 18:43 Total Protein 7.9 gm/dl (6.4-8.2) 02/01/21 18:43 Albumin 3.4 gm/dl (3.4-5.0) 02/01/21 18:43 Globulin 4.5 gm/dl (2.5-4.0) H 02/01/21 18:43 Albumin/Globulin Ratio 0.8 (0.9-2) L 02/01/21 18:43 Procalcitonin 0.13 ng/ml (0-0.5) 02/01/21 18:40 Urine Color Yellow 02/01/21 18:58 Urine Appearance Clear (Clear) 02/01/21 18:58 Urine pH 5.0 (4.5-7.5) 02/01/21 18:58 Ur Specific [place] 1.031 (1.000-1.030) H 02/01/21 18:58 Urine Protein 1+ (Negative) H 02/01/21 18:58 Urine Glucose (UA) 3+ (Negative) H 02/01/21 18:58 Urine Ketones Trace (Negative) H 02/01/21 18:58 Urine Blood 2+ (Negative) H 02/01/21 18:58 Urine Nitrite Negative (Negative) 02/01/21 18:58 Urine Bilirubin Negative (Negative) 02/01/21 18:58 Urine Urobilinogen Negative (Negative) 02/01/21 18:58 Ur Leukocyte Esterase 1+ (Negative) H 02/01/21 18:58 Urine WBC (Auto) >30 /hpf (0-5) H 02/01/21 18:58 Urine RBC (Auto) 10-30 /hpf (0-4) H 02/01/21 18:58 U Hyaline Cast (Auto) 10-30 /lpf (0-5) H 02/01/21 18:58 U Epithel Cells (Auto) 0-5 /lpf (0-5) 02/01/21 18:58 Urine Bacteria (Auto) Negative (Negative) 02/01/21 18:58 COVID-19 Eval Order Covid19 at [facility] 02/01/21 19:12 SARS-CoV-2 (PCR) NEGATIVE (Negative) 02/01/21 19:12 Impressions Chest X-Ray 02/01/21 18:43 SINGLE VIEW CHEST CLINICAL HISTORY: Sepsis. FINDINGS: An AP, portable, upright chest radiograph is compared to study dated 09/21/2016 and correlated with chest CT dated 01/23/2021. The heart is top normal for projection noting atherosclerotic calcification of the thoracic aorta. There is mild bibasilar atelectasis. No airspace consolidation or large pleural effusion is identified. No pneumothorax is seen. The bony thorax is grossly intact. Atherosclerotic calcification is noted in the right carotid bulb. IMPRESSION: No acute cardiopulmonary abnormality. ACT 112: Negative or not required by law. Electronically signed by: Morris Coburn M.D. 02/01/2021 9:06 PM Code Status & VTE Plan Code Status Full code VTE Prophylaxis Plan VTE Prophylaxis will be ordered: Yes PG Care Time/CCT Total # of Minutes Spent Total Time Spent with Patient: Total time spent is greater than 50% in coordination of care (as documented) at patient's floor/unit and/or counseling patient: Coding Level of Care Code 72574 Initial Inpt Care Lvl 3 Diagnoses Acute UTI N39.0 Cauda equina compression G83.4 Spinal stenosis, lumbar region with neurogenic claudication M48.062 Diabetes E11.9 GERD (gastroesophageal reflux disease) K21.9 Hypertension I10 Hypothyroidism E03.9 Gout M10.9
[2021-02-01] MEDS ORDERED: APIXABAN 5 MG TABLET PO ONE (22:00)
[2021-02-01] MEDS: NSS + 20MEQ KCL 20 MEQ/1,000 ML BAG IV SCH (22:27)
[2021-02-01] MEDS: ACETAMINOPHEN 325 MG TAB PO PRN (22:40)
[2021-02-01] MEDS: FAMOTIDINE 40 MG TABLET PO SCH (22:41)
[2021-02-01] MEDS: GABAPENTIN 300 MG CAP PO SCH (22:41)
[2021-02-01] MEDS: ATORVASTATIN 40 MG TAB PO SCH (22:41)
[2021-02-01] MEDS: INSULIN ASPART 100 UNITS/ML 3 ML PEN SC SCH (22:42)
[2021-02-01] MEDS ORDERED: VANCOMYCIN HCL 2,250 MG in SODIUM CHLORIDE 0.9% 500 ML IV ONE (23:30)
[2021-02-01] MEDS ORDERED: VANCOMYCIN HCL 2,250 MG in SODIUM CHLORIDE 0.9% 500 ML IV SCH (23:30)
[2021-02-02] MEDS ORDERED: TAMSULOSIN HCL 0.4 MG CAP PO ONE (01:00)
[2021-02-02] MEDS: PANTOprazole 40 MG TAB PO SCH (05:34)
[2021-02-02] MEDS: LEVOTHYROXINE SODIUM 112 MCG TABLET PO SCH (05:34)
[2021-02-02 06:06] LABS: Basophils # (auto) 0.03 K/uL (0-0.2); Basophils % (auto) 0.2 %; Eosinophils # (auto) 0.02 K/uL (0-0.5); Eosinophils % (auto) 0.1 %; Hematocrit (blood only) 34.3 % (42-52); Immature Granulocytes # (auto) 0.05 K/uL (0.00-0.02); Immature Granulocytes % (auto) 0.3 %; Lymphocytes # (auto) 1.52 K/uL (1.2-3.4); Lymphocytes % (auto) 8.1 %; Mean Corpuscular Hemoglobin 31.2 pg (25-34); Mean Corpuscular Volume 89.1 fL (80-100); Mean Platelet Volume 10.6 fL (7.4-10.4); Monocytes # (auto) 1.38 K/uL (0.11-0.59); Monocytes % (auto) 7.3 %; Neutrophils # (auto) 15.85 K/uL (1.4-6.5); Platelet Count 293 K/uL (130-400); RDW Coefficient of Variation 12.5 % (11.5-14.5); RDW Standard Deviation 40.1 fL (36.4-46.3); Red Blood Count 3.85 M/uL (4.7-6.1); White Blood Count 18.85 K/uL (4.8-10.8)
[2021-02-02 06:38] LABS: Albumin Level 2.6 gm/dl (3.4-5.0); BUN Creatinine Ratio 16.1 (10-20); Calcium 8.1 mg/dl (8.5-10.1); Creatinine Clr Calc Pharmacy 107.2 ml/min; Est GFR (African American) 104.6 ml/min; Est GFR (Non-African American) 90.2 ml/min; Magnesium 1.7 mg/dl (1.8-2.4); Potassium 3.9 mmol/L (3.5-5.1)
[2021-02-02 06:43] LABS: Albumin Globulin Ratio 0.8 (0.9-2); Globulin 3.4 gm/dl (2.5-4.0)
[2021-02-02] MEDS: NSS + 20MEQ KCL 20 MEQ/1,000 ML BAG IV SCH ×2 (08:30→18:26)
[2021-02-02] MEDS: PSYLLIUM or GUAR GUM FIBER POWDER PACKET PO SCH (08:31)
[2021-02-02] MEDS: INSULIN ASPART 100 UNITS/ML 3 ML PEN SC SCH ×4 (08:37→21:15)
[2021-02-02] MEDS: LORATADINE 10 MG TAB PO SCH (08:38)
[2021-02-02] MEDS: allopurinoL 300 MG TAB PO SCH (08:38)
[2021-02-02] MEDS: GABAPENTIN 300 MG CAP PO SCH ×3 (08:38→20:06)
[2021-02-02] MEDS: APIXABAN 5 MG TABLET PO SCH ×2 (08:38→20:05)
[2021-02-02] MEDS: METOPROLOL SUCC 25MG EXT REL TAB PO SCH (08:39)
[2021-02-02] MEDS ORDERED: PHARMACY GLYCEMIC MGMT CONSULT PRN (13:44)
--- NOTE | 2021-02-02 13:58 | Pharmacy Report ---
Pharmacy Glycemic Short Note 2 - Date of Service February 02, 2021 - Glycemic Short BSG Results (Last 24 hours): 02/01/21 02/01/21 02/02/21 18:43 21:53 05:49 Glucose 174 H 169 H POC Glucose 207 H 02/02/21 02/02/21 08:00 11:58 Glucose POC Glucose 206 H 193 H OUTPATIENT ANTIDIABETIC REGIMEN: * glimepiride 2 mg daily, metformin 1 gm bid * A1c 7.7% ASSESSMENT: * 70 year old admitted with UTI. Type 2 diabetic managed on orals at home. Pharmacy consulted to help with glycemic management. * SSI started last evening - Fasting BSG elevated at 206 mg/dL, lunch time BSG 193 mg/dL * Plan to give 10 units of Lantus x 1 now, will tighten CF/CR to stress of 2 for dosing PLAN FOR INPATIENT GLYCEMIC CONTROL: * Hold outpatient oral diabetes medications * Basal insulin * Lantus 10 x 1 * Bolus insulin * NovoLog per scale ACHS or Q6hrs while NPO * Goal Range: Low 110 mg/dL - High 140 mg/dL * Correction Factor: 25 mg/dL/unit * Nutritional / Prandial insulin per carb ratio of 1 unit per 8 grams CHO consumed PLAN FOR DISCHARGE: * TBD
[2021-02-02] MEDS ORDERED: INSULIN GLARGINE SOLOSTAR 100 UNITS/ML 3 ML PEN SC ONE (14:00)
[2021-02-02] MEDS ORDERED: levoFLOXacin/D5W 750 MG/150 ML BAG IV SCH (19:00)
--- NOTE | 2021-02-02 19:57 | Hospitalist Progress Note ---
Date of Service February 02, 2021 Assessment & Plan (1) Sepsis: Source - catheter associated UTI Lactate 1.8 on admission Stop vancomycin (growing gram-negative rods), continue Levaquin Follow up blood and urine cultures Given ongoing tachycardia we will continue intravenous fluids for now Present on Admission?: Yes (2) Acute UTI: Catheter associated Follow urine culture and sensitivity Continue Gray catheter placed in the emergency room. (3) Urinary retention: Unknown output with Gray catheter insertion in the emergency room however he had not passed urine after this was removed at [facility] therefore suspect he was in urine retention at the time of admission. Consult urology for ongoing management of this. (4) Diarrhea: No mention of diarrhea during his last hospitalization on progress notes. Recommend infection work-up at this time with stool culture and C. difficile testing. (5) Cauda equina compression: Cauda equina compression/lumbar spinal stenosis with neurogenic claudication- We will continue PT/OT patient is strong enough Continue [place], gabapentin (6) Spinal stenosis, lumbar region with neurogenic claudication: See above (7) Diabetes: HbA1C 7.7 Hold Metformin and glimepiride. Inadequate glucose control > 200 therefore will consult pharmacy for glycemic control Novolog: Goal BSG Range: Low 110 mg/dL, High 140 mg/dL Correction Factor: 25 mg/dL/unit INS:CHO Ratio: 1unit per 8 gms CHO consumed BSGs ACHS if eating, q6h if npo (8) GERD (gastroesophageal reflux disease): Continue pantoprazole (9) Hypertension: Continue metoprolol succinate 25 mg p.o. daily (10) Hypothyroidism: Continue levothyroxine 112 mcg daily (11) Gout: Continue allopurinol (12) Pulmonary embolus: Diagnosed 01/23/2021 Continue apixaban 5 mg p.o. twice daily (finish 10 mg course) Admission and Anticipated Discharge Date Admission Date: February 01, 2021 Subjective Marked improvement from admission. Hemodynamically stable. He reports being mostly confused and obtunded when he came in and is conversational with me today and orientated x3. He reports no sensation below the waistline. No flank pain. No fevers or chills overnight. Revisited history of presenting illness with the patient. He reports the Gray catheter was discontinued after his orthopedic appointments yesterday morning. He was unable to pee after this. He denies any fevers or chills prior to this. Gray catheter had to be reinserted in the emergency room due to urinary retention although I am unclear what his initial output of this was. 1600 mL recorded output for 10 hours after admission however he had substantial IV fluids resuscitation during that time. In addition he has been having mucus diarrhea. He reports this was present during his last hospitalization. He has been taking Imodium at [facility] for this which has been somewhat helpful. No known infective work-up is been performed. There is no stool cultures or C. difficile testing [facility] from his last hospitalization. Review of Systems Review of Systems: All systems reviewed & are unremarkable except as noted in HPI & below Physical Exam Constitutional: WD/WN, vitals as above Eyes: + anicteric sclerae; normal pupil size ENMT: external ear and nose normal, oropharynx normal Neck: trachea midline, no thyromegaly Respiratory: normal respiratory effort, lungs clear to auscultation Cardiovascular: Rate/Rhythm: regular rhythm and + tachycardic Heart Sounds: + murmur (2/6 RORY RUSB) Vessels: no JVD Extremities: normal capillary refill and + pedal edema (1+ equal pretibial pitting); no calf tenderness Gastrointestinal (Abdomen): normal bowel sounds, soft, nontender, no hepatosplenomegaly Skin: no rashes, warm and dry (No areas of cellulitis present) Neurologic: + focal motor deficit (Bilateral equal lower extremity weakness worse proximaly) and awake; + does not move all extremities and not confused Psychiatric: A+Ox3, euthymic affect Results & Data Results & Data ([facility]) Vital Signs (Past 12 Hours) Vital Signs Temp Pulse Pulse Resp BP Pulse Ox 02/02/21 17:04 37.2 C 101 H 20 148/72 H 95 02/02/21 15:08 102 H 02/02/21 12:57 37.6 C H 105 H 20 132/78 95 02/02/21 07:43 106 H PG Care Time/CCT Total # of Minutes Spent Total Time Spent with Patient: Total time spent is greater than 50% in coordination of care (as documented) at patient's floor/unit and/or counseling patient: Coding Level of Care Code 58654 Subseq Hosp Care Lvl 3 Diagnoses Sepsis A41.9 Sepsis acute organ dysfunction status: without acute organ dysfunction Sepsis type: sepsis due to unspecified organism Acute UTI N39.0 Urinary retention R33.9 Diarrhea R19.7 Cauda equina compression G83.4 Spinal stenosis, lumbar region with neurogenic claudication M48.062 Diabetes E11.9 GERD (gastroesophageal reflux disease) K21.9 Hypertension I10 Hypothyroidism E03.9 Gout M10.9 Gout site: unspecified site Gout etiology: unspecified cause Chronicity: chronic Pulmonary embolus I26.99 (1) Gout Gout site: unspecified site Gout etiology: unspecified cause Chronicity: chronic (2) Sepsis Sepsis acute organ dysfunction status: without acute organ dysfunction Sepsis type: sepsis due to unspecified organism Qualified Code(s): A41.9 - Sepsis, unspecified organism
[2021-02-02] MEDS: ATORVASTATIN 40 MG TAB PO SCH (20:06)
[2021-02-02] MEDS: TAMSULOSIN HCL 0.4 MG CAP PO SCH (20:06)
[2021-02-02] MEDS: FAMOTIDINE 40 MG TABLET PO SCH (20:06)
[2021-02-02] MEDS: ACETAMINOPHEN 325 MG TAB PO PRN (21:14)
[2021-02-02] MEDS: MAGNESIUM OXIDE 400 MG TAB PO SCH (21:14)
--- NOTE | 2021-02-02 22:35 | Electrocardiogram Report ---
Test Reason : Blood Pressure : / mmHG Vent. Rate : 114 BPM Atrial Rate : 114 BPM P-R Int : 154 ms QRS Dur : 088 ms QT Int : 314 ms P-R-T Axes : 057 002 030 degrees QTc Int : 432 ms Sinus tachycardia Nonspecific ST abnormality Abnormal ECG When compared with ECG of 18-JAN-2021 00:08, No significant change was found Confirmed by Bean Casillas ([id number]) on 02/02/2021 10:35:36 PM Referred By: REFERRED SELF Confirmed By:Bean Casillas
[2021-02-03] MEDS: ACETAMINOPHEN 325 MG TAB PO PRN ×2 (03:31→15:50)
[2021-02-03] MEDS: LEVOTHYROXINE SODIUM 112 MCG TABLET PO SCH (05:33)
[2021-02-03] MEDS: PANTOprazole 40 MG TAB PO SCH (05:33)
[2021-02-03 07:01] LABS: Basophils # (auto) 0.02 K/uL (0-0.2); Basophils % (auto) 0.2 %; Eosinophils # (auto) 0.08 K/uL (0-0.5); Eosinophils % (auto) 0.9 %; Hematocrit (blood only) 31.8 % (42-52); Immature Granulocytes # (auto) 0.02 K/uL (0.00-0.02); Immature Granulocytes % (auto) 0.2 %; Lymphocytes # (auto) 0.62 K/uL (1.2-3.4); Lymphocytes % (auto) 6.6 %; Mean Corpuscular Hemoglobin 30.9 pg (25-34); Mean Corpuscular Hgb Conc 34.6 g/dL (32-36); Mean Corpuscular Volume 89.3 fL (80-100); Mean Platelet Volume 10.9 fL (7.4-10.4); Monocytes # (auto) 0.49 K/uL (0.11-0.59); Monocytes % (auto) 5.2 %; Neutrophils # (auto) 8.12 K/uL (1.4-6.5); Neutrophils % (auto) 86.9 %; Platelet Count 285 K/uL (130-400); RDW Coefficient of Variation 12.4 % (11.5-14.5); RDW Standard Deviation 40.3 fL (36.4-46.3); Red Blood Count 3.56 M/uL (4.7-6.1); White Blood Count 9.35 K/uL (4.8-10.8)
[2021-02-03 07:50] LABS: Albumin Globulin Ratio 0.6 (0.9-2); Albumin Level 2.3 gm/dl (3.4-5.0); Bilirubin,Total 0.6 mg/dl (0.2-1); Calcium 8.4 mg/dl (8.5-10.1); Creatinine Clr Calc Pharmacy 114.3 ml/min; Est GFR (African American) 107.3 ml/min; Est GFR (Non-African American) 92.6 ml/min; Globulin 3.7 gm/dl (2.5-4.0); Magnesium 1.7 mg/dl (1.8-2.4); Potassium 3.3 mmol/L (3.5-5.1)
[2021-02-03] MEDS ORDERED: POTASSIUM CHLORIDE CRTAB 20 MEQ TABCR PO STA (08:16)
[2021-02-03] MEDS ORDERED: ceFAZolin 1000MG 1,000 MG/7.5 ML SYR IV SCH (08:30)
[2021-02-03] MEDS ORDERED: OPTIRAY 300 100mL IV ONE (09:29)
[2021-02-03] MEDS: INSULIN ASPART 100 UNITS/ML 3 ML PEN SC SCH ×4 (09:44→20:48)
[2021-02-03] MEDS: APIXABAN 5 MG TABLET PO SCH ×2 (09:45→20:45)
[2021-02-03] MEDS: allopurinoL 300 MG TAB PO SCH (09:45)
[2021-02-03] MEDS: LORATADINE 10 MG TAB PO SCH (09:46)
[2021-02-03] MEDS: INSULIN GLARGINE SOLOSTAR 100 UNITS/ML 3 ML PEN SC SCH (09:46)
[2021-02-03] MEDS: GABAPENTIN 300 MG CAP PO SCH ×3 (09:46→20:46)
[2021-02-03] MEDS: MAGNESIUM OXIDE 400 MG TAB PO SCH ×2 (09:47→20:44)
[2021-02-03] MEDS: PSYLLIUM or GUAR GUM FIBER POWDER PACKET PO SCH (09:48)
[2021-02-03] MEDS: METOPROLOL SUCC 25MG EXT REL TAB PO SCH (09:48)
--- NOTE | 2021-02-03 11:27 | CT Scan Report ---
ABDOMEN AND PELVIS CT WITH IV CONTRAST CT DOSE: 1053.20 mGycm HISTORY: Acute generalized abdominal pain with sepsis Generalzied abdominal pain, diarrhea, sepsis TECHNIQUE: Multiaxial CT images of the abdomen and pelvis were performed following the IV administrat ion of 85 cc of Optiray, A dose lowering technique was utilized adhering to the principles of ALARA. COMPARISON STUDY: Chest radiograph 05/04/2021, CTA chest 01/23/2021 FINDINGS: Clear lung bases. No pneumatosis or pneumoperitoneum. Coronary artery calcifications. Unremarkable sp matthew, pancreas and adrenal glands. Contracted gallbladder. Unremarkable liver. Patency of the hepatic and portal veins. 8 mm probable cyst of the inferior pole right kidney. No renal calculi or hydronep hrosis. The pelvic structures are suboptimally visualized secondary to artifact from bilateral hip ar throplasties. Partially decompressed urinary bladder with wall thickening and perivesicular stranding . Air within the urinary bladder is noted with Gray catheter. Small fat filled left inguinal hernia. Atherosclerotic plaque of the abdominal aorta without aneurysm. No adenopathy. No bowel obstruction. There is circumferential wall thickening of the rectum and mid to distal sigmoi d colon with pericolonic perirectal stranding and trace dependent free pelvic fluid. No perforation. Moderate fecal retention. Normal appendix. Tiny fat filled periumbilical hernia. Prior laminectomy wi th discectomy, posterior interbody beverley and screw fusion at L4-L5. IMPRESSION: 1. There is moderate wall thickening of the rectum and distal sigmoid with associated perirectal and pericolonic stranding and trace free pelvic fluid. Findings are compatible with a nonspecific proctoc olitis. 2. No bowel obstruction. 3. Moderate fecal retention. 4. Additional findings as above. ACT 112: Negative or not required by law. The above report was generated using voice recognition software. It may contain grammatical, syntax o r spelling errors. Electronically signed by: Amador Sullivan M.D. 02/03/2021 11:26 AM
--- NOTE | 2021-02-03 12:00 | Hospitalist Progress Note ---
Date of Service February 03, 2021 Assessment & Plan (1) Sepsis: Source - catheter associated UTI +/- proctocolitis Lactate 1.8 on admission Stop Levaquin as even though he has improved E. coli is resistant to this. Switch to ceftriaxone and metronidazole IV (started 02/03) Follow up blood cultures - negative at 24 hours Follow-up stool cultures Urine culture growing E. coli. (2) Acute UTI: Catheter associated Urine culture growing E. coli resistant to fluoroquinolones and Bactrim. Continue Gray catheter placed in the emergency room. (3) Urinary retention: Continue Gray catheter. Do not remove. Discussed with urology and patient already has follow-up in neurology outpatient clinic. (4) Proctocolitis: Possibly source of infection therefore cover with ceftriaxone and metronidazole. MiraLAX 3 times daily due to moderate fecal retention. Possible need of senna given lack of nerve innervation. Monitor bowel movements to resolution. (5) Diarrhea: C. difficile negative. Stool cultures pending. (6) Sinus tachycardia: ? Suspect multifactorial with recent diagnosis of pulmonary embolism and current infection. Will discontinue further IV fluids at this time unless he clinically becomes more dehydrated. No reason to suspect Apixaban failure at this time. Continue to monitor on telemetry. (7) Cauda equina compression: Cauda equina compression/lumbar spinal stenosis with neurogenic claudication- PT/OT eval's Continue [place], gabapentin (8) Spinal stenosis, lumbar region with neurogenic claudication: See above (9) Diabetes: HbA1C 7.7 Hold Metformin and glimepiride. Appreciate pharmacy glycemic management with basal bolus insulin. Added Lantus today which appears appropriate given glucose levels. (10) GERD (gastroesophageal reflux disease): Continue pantoprazole (11) Hypertension: Continue metoprolol succinate 25 mg p.o. daily (12) Hypothyroidism: Continue levothyroxine 112 mcg daily (13) Gout: No acute flare Continue allopurinol (14) Pulmonary embolus: Diagnosed 01/23/2021 Continue apixaban 5 mg p.o. twice daily (finished 10 mg induction) Admission and Anticipated Discharge Date Admission Date: February 01, 2021 Subjective Clarified with patient that he is having ongoing problems with diarrhea since his operation however the mucus part of this is just been for the last few days. C. difficile toxin gene negative. Stool cultures pending at this time. His blood cultures negative after 24 hours. Urine culture E. coli resistant to fluoroquinolones however patient has been making improvements despite being on Levaquin possibly suggesting an alternative source/diagnosis. He denies any abdominal pain, nausea, vomiting. Continued mucous diarrhea today. Telemetry - ST 100-110s ms, few PACs/PVCs Review of Systems Review of Systems: All systems reviewed & are unremarkable except as noted in HPI & below Physical Exam Constitutional: WD/WN, vitals as above Eyes: + anicteric sclerae; normal pupil size ENMT: external ear and nose normal, oropharynx normal Neck: trachea midline, no thyromegaly Respiratory: normal respiratory effort, lungs clear to auscultation Cardiovascular: Rate/Rhythm: regular rhythm and + tachycardic Heart Sounds: + murmur (2/6 RORY RUSB) Vessels: no JVD Extremities: normal capillary refill and + pedal edema (1+ equal pretibial pitting); no calf tenderness Gastrointestinal (Abdomen): normal bowel sounds, soft, nontender, no hepatosplenomegaly Skin: no rashes, warm and dry (No areas of cellulitis present) Neurologic: + focal motor deficit (Bilateral equal lower extremity weakness worse proximaly) and awake; + does not move all extremities and not confused Psychiatric: A+Ox3, euthymic affect Results & Data Results & Data ([facility]) Vital Signs (Past 12 Hours) Vital Signs Temp Pulse Pulse Resp BP Pulse Ox 02/03/21 08:40 37.6 C H 114 H 19 149/83 H 95 02/03/21 07:25 102 H 02/03/21 02:57 37.2 C 65 18 162/77 H 95 PG Care Time/CCT Total # of Minutes Spent Total Time Spent with Patient: Total time spent is greater than 50% in coordination of care (as documented) at patient's floor/unit and/or counseling patient: Coding Level of Care Code 59230 Subseq Hosp Care Lvl 3 Diagnoses Sepsis A41.9 Sepsis acute organ dysfunction status: without acute organ dysfunction Sepsis type: sepsis due to unspecified organism Acute UTI N39.0 Urinary retention R33.9 Proctocolitis K52.9 Diarrhea R19.7 Sinus tachycardia R00.0 Cauda equina compression G83.4 Spinal stenosis, lumbar region with neurogenic claudication M48.062 Diabetes E11.9 GERD (gastroesophageal reflux disease) K21.9 Hypertension I10 Hypothyroidism E03.9 Hypothyroidism type: unspecified Gout M10.9 Chronicity: chronic Gout etiology: unspecified cause Gout site: unspecified site Pulmonary embolus I26.99 (1) Gout Chronicity: chronic Gout etiology: unspecified cause Gout site: unspecified site (2) Hypothyroidism Hypothyroidism type: unspecified Qualified Code(s): E03.9 - Hypothyroidism, unspecified (3) Sepsis Sepsis acute organ dysfunction status: without acute organ dysfunction Sepsis type: sepsis due to unspecified organism Qualified Code(s): A41.9 - Sepsis, unspecified organism
[2021-02-03] MEDS: POLYETHYLENE (MIRALAX) 17 GM PACK PO SCH ×2 (12:55→20:48)
[2021-02-03] MEDS: cefTRIAXone SODIUM 2,000 MG in DEXTROSE 5% 50 ML IV SCH (12:55)
[2021-02-03] MEDS: metroNIDAZOLE 500 MG/100 ML BAG IV SCH ×2 (14:10→20:48)
[2021-02-03] MEDS: FAMOTIDINE 40 MG TABLET PO SCH (20:45)
[2021-02-03] MEDS: TAMSULOSIN HCL 0.4 MG CAP PO SCH (20:46)
[2021-02-03] MEDS: ATORVASTATIN 40 MG TAB PO SCH (20:46)
[2021-02-04] MEDS: ACETAMINOPHEN 325 MG TAB PO PRN ×2 (04:52→21:50)
[2021-02-04] MEDS: metroNIDAZOLE 500 MG/100 ML BAG IV SCH ×3 (04:54→21:09)
[2021-02-04 05:41] LABS: Basophils # (auto) 0.02 K/uL (0-0.2); Basophils % (auto) 0.3 %; Eosinophils # (auto) 0.03 K/uL (0-0.5); Eosinophils % (auto) 0.5 %; Hematocrit (blood only) 32.3 % (42-52); Hemoglobin 11.3 g/dL (14.0-18.0); Lymphocytes # (auto) 0.87 K/uL (1.2-3.4); Lymphocytes % (auto) 15.2 %; Mean Corpuscular Hemoglobin 30.3 pg (25-34); Mean Corpuscular Volume 86.6 fL (80-100); Mean Platelet Volume 10.2 fL (7.4-10.4); Monocytes # (auto) 0.37 K/uL (0.11-0.59); Monocytes % (auto) 6.5 %; Neutrophils # (auto) 4.44 K/uL (1.4-6.5); Neutrophils % (auto) 77.5 %; Platelet Count 279 K/uL (130-400); RDW Coefficient of Variation 12.2 % (11.5-14.5); RDW Standard Deviation 39.1 fL (36.4-46.3); Red Blood Count 3.73 M/uL (4.7-6.1); White Blood Count 5.73 K/uL (4.8-10.8)
[2021-02-04] MEDS: PANTOprazole 40 MG TAB PO SCH (05:59)
[2021-02-04] MEDS: LEVOTHYROXINE SODIUM 112 MCG TABLET PO SCH (05:59)
[2021-02-04 06:13] LABS: Calcium 8.8 mg/dl (8.5-10.1); Creatinine Clr Calc Pharmacy 100.4 ml/min; Est GFR (African American) 102.1 ml/min; Est GFR (Non-African American) 88.1 ml/min; Potassium 3.5 mmol/L (3.5-5.1)
[2021-02-04] MEDS: PSYLLIUM or GUAR GUM FIBER POWDER PACKET PO SCH (08:02)
[2021-02-04] MEDS: POLYETHYLENE (MIRALAX) 17 GM PACK PO SCH ×3 (08:02→21:08)
[2021-02-04] MEDS: allopurinoL 300 MG TAB PO SCH ×2 (08:02→20:41)
[2021-02-04] MEDS: LORATADINE 10 MG TAB PO SCH (08:03)
[2021-02-04] MEDS: METOPROLOL SUCC 50MG EXT REL TAB PO SCH (08:03)
[2021-02-04] MEDS: GABAPENTIN 300 MG CAP PO SCH ×3 (08:03→20:41)
[2021-02-04] MEDS: APIXABAN 5 MG TABLET PO SCH ×2 (08:04→20:40)
[2021-02-04] MEDS: MAGNESIUM OXIDE 400 MG TAB PO SCH ×2 (08:04→20:40)
[2021-02-04] MEDS: INSULIN ASPART 100 UNITS/ML 3 ML PEN SC SCH ×4 (08:10→21:13)
[2021-02-04] MEDS: INSULIN GLARGINE SOLOSTAR 100 UNITS/ML 3 ML PEN SC SCH (08:10)
[2021-02-04] MEDS ORDERED: MAGNESIUM HYDROXIDE SUSP 30 ML UDC PO ONE (08:10)
[2021-02-04] MEDS: DOCUSATE SODIUM/SENNA 50/8.6MG TAB PO SCH ×2 (08:23→21:07)
[2021-02-04] MEDS ORDERED: INSULIN GLARGINE SOLOSTAR 100 UNITS/ML 3 ML PEN SC SCH (11:30)
[2021-02-04] MEDS: cefTRIAXone SODIUM 2,000 MG in DEXTROSE 5% 50 ML IV SCH (12:34)
[2021-02-04] MEDS: TAMSULOSIN HCL 0.4 MG CAP PO SCH (20:39)
[2021-02-04] MEDS: ATORVASTATIN 40 MG TAB PO SCH (20:40)
[2021-02-04] MEDS: FAMOTIDINE 40 MG TABLET PO SCH (20:40)
[2021-02-05] MEDS: metroNIDAZOLE 500 MG/100 ML BAG IV SCH ×3 (05:47→20:54)
[2021-02-05] MEDS: PANTOprazole 40 MG TAB PO SCH (05:48)
[2021-02-05] MEDS: LEVOTHYROXINE SODIUM 112 MCG TABLET PO SCH (05:48)
--- NOTE | 2021-02-05 06:26 | Hospitalist Progress Note ---
Date of Service February 04, 2021 Assessment & Plan (1) Sepsis: Source - catheter associated UTI +/- proctocolitis Lactate 1.8 on admission Stop Levaquin as even though he has improved E. coli is resistant to this. Switched to ceftriaxone and metronidazole IV (started 02/03) Follow up blood cultures - negative at 48 hours, repeat also NGTD Follow-up stool cultures - negative to date Urine culture growing E. coli. (2) Acute UTI: Catheter associated Urine culture growing E. coli resistant to fluoroquinolones and Bactrim. Continue Gray catheter placed in the emergency room. (3) Urinary retention: Continue Gray catheter. Do not remove. Discussed with urology and patient already has follow-up in neurology outpatient clinic. (4) Proctocolitis: Possibly source of infection therefore cover with ceftriaxone and metronidazole. MiraLAX 3 times daily due to moderate fecal retention. Mild of magnesia PO this morning. Add Senna BID. Monitor bowel movements to resolution. (5) Diarrhea: C. difficile negative. Stool cultures negative to date. (6) Sinus tachycardia: ? Suspect multifactorial with recent diagnosis of pulmonary embolism and current infection. No reason to suspect Apixaban failure at this time. Continue to monitor on telemetry. (7) Cauda equina compression: Cauda equina compression/lumbar spinal stenosis with neurogenic claudication- PT/OT eval's Continue [place], gabapentin (8) Spinal stenosis, lumbar region with neurogenic claudication: See above (9) Diabetes: HbA1C 7.7 Hold Metformin and glimepiride. Appreciate pharmacy glycemic management with basal bolus insulin. (10) GERD (gastroesophageal reflux disease): Continue pantoprazole (11) Hypertension: Continue metoprolol succinate 25 mg p.o. daily (12) Hypothyroidism: Continue levothyroxine 112 mcg daily (13) Gout: No acute flare Continue allopurinol (14) Pulmonary embolus: Diagnosed 01/23/2021 Continue apixaban 5 mg p.o. twice daily (finished 10 mg induction) Admission and Anticipated Discharge Date Admission Date: February 01, 2021 Subjective No further fever or chills. No large BM yet with increased MiraLAX. No nausea, vomiting or abdominal pain. Still having mucous small BM. Abdomen mildly distended. Review of Systems Review of Systems: All systems reviewed & are unremarkable except as noted in HPI & below Physical Exam Constitutional: WD/WN, vitals as above Eyes: + anicteric sclerae; normal pupil size ENMT: external ear and nose normal, oropharynx normal Neck: trachea midline, no thyromegaly Respiratory: normal respiratory effort, lungs clear to auscultation Cardiovascular: Rate/Rhythm: regular rhythm and + tachycardic Heart Sounds: + murmur (2/6 RORY RUSB) Vessels: no JVD Extremities: normal capillary refill and + pedal edema (1+ equal pretibial pitting); no calf tenderness Gastrointestinal (Abdomen): normal bowel sounds, soft, nontender, no hepatosplenomegaly Skin: no rashes, warm and dry (No areas of cellulitis present) Neurologic: + focal motor deficit (Bilateral equal lower extremity weakness worse distally) and awake; + does not move all extremities and not confused Psychiatric: A+Ox3, euthymic affect Results & Data Results & Data ([facility]) Vital Signs (Past 12 Hours) Vital Signs Temp Pulse Pulse Resp BP Pulse Ox 02/05/21 03:58 36.3 C L 90 18 103/66 96 02/04/21 23:59 90 02/04/21 23:20 36.8 C 85 18 139/78 95 02/04/21 19:39 38.1 C H 98 H 18 145/76 H 92 PG Care Time/CCT Total # of Minutes Spent Total Time Spent with Patient: Total time spent is greater than 50% in coordination of care (as documented) at patient's floor/unit and/or counseling patient: Coding Level of Care Code 11540 Subseq Hosp Care Lvl 3 Diagnoses Sepsis A41.9 Sepsis acute organ dysfunction status: without acute organ dysfunction Sepsis type: sepsis due to unspecified organism Acute UTI N39.0 Urinary retention R33.9 Proctocolitis K52.9 Diarrhea R19.7 Sinus tachycardia R00.0 Cauda equina compression G83.4 Spinal stenosis, lumbar region with neurogenic claudication M48.062 Diabetes E11.9 GERD (gastroesophageal reflux disease) K21.9 Hypertension I10 Hypothyroidism E03.9 Hypothyroidism type: unspecified Gout M10.9 Gout site: unspecified site Gout etiology: unspecified cause Chronicity: chronic Pulmonary embolus I26.99 (1) Sepsis Sepsis acute organ dysfunction status: without acute organ dysfunction Sepsis type: sepsis due to unspecified organism Qualified Code(s): A41.9 - Sepsis, unspecified organism (2) Hypothyroidism Hypothyroidism type: unspecified Qualified Code(s): E03.9 - Hypothyroidism, unspecified (3) Gout Gout site: unspecified site Gout etiology: unspecified cause Chronicity: chronic
[2021-02-05] MEDS: PSYLLIUM or GUAR GUM FIBER POWDER PACKET PO SCH (08:28)
[2021-02-05] MEDS: POLYETHYLENE (MIRALAX) 17 GM PACK PO SCH ×3 (08:28→20:59)
[2021-02-05] MEDS: MAGNESIUM OXIDE 400 MG TAB PO SCH ×2 (08:29→20:53)
[2021-02-05] MEDS: METOPROLOL SUCC 50MG EXT REL TAB PO SCH (08:29)
[2021-02-05] MEDS: LORATADINE 10 MG TAB PO SCH (08:30)
[2021-02-05] MEDS: APIXABAN 5 MG TABLET PO SCH ×2 (08:30→20:53)
[2021-02-05] MEDS: GABAPENTIN 300 MG CAP PO SCH ×3 (08:31→20:53)
[2021-02-05] MEDS: INSULIN GLARGINE SOLOSTAR 100 UNITS/ML 3 ML PEN SC SCH (08:31)
[2021-02-05] MEDS: INSULIN ASPART 100 UNITS/ML 3 ML PEN SC SCH ×4 (08:32→20:56)
[2021-02-05] MEDS: DOCUSATE SODIUM/SENNA 50/8.6MG TAB PO SCH ×2 (08:37→20:59)
[2021-02-05] MEDS ORDERED: INSULIN GLARGINE SOLOSTAR 100 UNITS/ML 3 ML PEN SC SCH (09:00)
--- NOTE | 2021-02-05 09:47 | Hospitalist Progress Note ---
Date of Service February 05, 2021 Assessment & Plan (1) Sepsis: Source - catheter associated UTI +/- proctocolitis Lactate 1.8 on admission continue ceftriaxone IV while admitted, would complete 14 days total due to complicated UTI with catheter could switch to oral option on discharge, sensitive to PCN and 2nd generation cephalosporins continue metronidazole IV for colitis component? would complete 7 days, could change to PO on discharge, he is moving bowels Follow up blood cultures - negative at 72 hours, repeat also NGTD Follow-up stool cultures - negative to date Urine culture growing E. coli that is resistant to quinolones no fever, vitals stable, feeling much better past few days he is stable from infectious standpoint, need to determine disposition for continued physical therapy from cauda equina syndrome, see below (2) Acute UTI: Catheter associated Urine culture growing E. coli resistant to fluoroquinolones and Bactrim. Continue [place] catheter placed in the emergency room, needs to follow up with Urology continue Ceftriaxone IV while admitted, change to PO on discharge, complete 14 days total (3) Urinary retention: Continue [place] catheter. Do not remove. Discussed with urology and patient already has follow-up the issue stems from cauda equina syndrome, possible neurogenic bladder (4) Proctocolitis: Possibly source of infection therefore cover with ceftriaxone and metronidazole. large BM today and another small BM afterwards stop the Miralax TID, continue on Miralax daily and Senokot (5) Diarrhea: C. difficile negative. Stool cultures negative to date. (6) Sinus tachycardia: ? Suspect multifactorial with recent diagnosis of pulmonary embolism and current infection. No reason to suspect Apixaban failure at this time. can downgrade off tele (7) Cauda equina compression: Cauda equina compression/lumbar spinal stenosis with neurogenic claudication- PT/OT eval's Continue [place], gabapentin he was at [facility], he does not want to go back he feels he can do exercises at home and get home therapy, he says his family can help him case management can work on plan (8) Spinal stenosis, lumbar region with neurogenic claudication: See above (9) Gout: No acute flare Continue allopurinol (10) Pulmonary embolus: Diagnosed 01/23/2021 Continue apixaban 5 mg p.o. twice daily (finished 10 mg induction) Admission and Anticipated Discharge Date Admission Date: February 01, 2021 Subjective patient had a large BM this morning then a smaller BM, so he is effectively moving bowels no fever/chills, no nausea, eating well, no chest pain, no dyspnea, no cough reviewed the chart, E coli UTI that was resistant to quinolones, continue on Ceftriaxone and Flagyl (for colitis) he says he does not want to go to [facility], he says the rehab was great but nursing care not great, he sat in his stool for 24 hours he wants to go home with home therapy, his family can help him he is getting stronger slowly, able to stand and pivot with a walker, feet still supinate, inverted he has more sensation in his thighs, not much sensation in groin/inguinal region he still cannot void, he had hewitt pulled in urology office earlier in the week and 12 hours later he was in the ED with fever and urinary retention Review of Systems Review of Systems: All systems reviewed & are unremarkable except as noted in Subjective Genitourinary: + difficulty urinating Musculoskeletal: + muscle weakness (lower extremities) Neurologic: + localized weakness (lower extremities) and + loss of sensation ( groin/inguinal region, decreased sensation posterior thighs); no seizure-like activity, no headache(s) and no confusion Physical Exam Constitutional: well developed, well nourished and comfortable; no acute distress Neck: trachea midline, no thyromegaly Respiratory: normal respiratory effort, lungs clear to auscultation Cardiovascular: RRR, no murmur, no edema Gastrointestinal (Abdomen): Inspection/Auscultation: + abdomen distended and normal bowel sounds Percussion/Palpation: abdomen soft and + tympanic to percussion; abdomen nontender Musculoskeletal: Head/Neck/Chest: normocephalic, head atraumatic and neck supple Extremities: extremities normal to inspection and + abnormal strength (4/5 in legs bilaterally); no cyanosis, no clubbing and no petechiae Skin: no rashes, warm and dry Neurologic: CN's II-XI intact bilaterally, moves all extremities and awake; no focal motor deficits Speech / Cognition: normal speech Motor/Sensory: no tremor and no pronator drift Gait: + gait assisted (walker) Psychiatric: A+Ox3, euthymic affect Lymphatic: no cervical or axillary lymphadenopathy Results & Data Results & Data ([facility]) Vital Signs (Past 12 Hours) Vital Signs Temp Pulse Pulse Pulse Resp BP Pulse Ox 02/05/21 07:36 36.3 C L 90 20 122/77 94 02/05/21 03:58 36.3 C L 90 18 103/66 96 02/04/21 23:59 90 02/04/21 23:20 36.8 C 85 18 139/78 95 Laboratory Results Laboratory Results - last 24 hr 02/04/21 02/04/21 02/04/21 11:42 16:47 20:20 POC Glucose 209 H 157 H 210 H 02/05/21 07:53 POC Glucose 178 H Medications Administered Current Inpatient Medications Acetaminophen (Acetaminophen 325 Mg Tab) 650 mg PO Q4 PRN PRN Reason: Pain or Fever Stop: 03/03/21 21:36 Last Admin: 02/04/21 21:50 Dose: 650 mg Documented by: Hydrocodone Bitart/Acetaminophen (Hydrocodone/Acetaminophen 7.5/325mg Tab) 1 tab PO Q6H PRN PRN Reason: pain scale 4-10 lumbar Stop: 02/15/21 21:36 Allopurinol (Allopurinol 300 Mg Tab) 300 mg PO DAILY NOAH Stop: 03/04/21 08:59 Last Admin: 02/04/21 20:41 Dose: 300 mg Documented by: Apixaban (Apixaban 5 Mg Tablet) 5 mg PO BID NOAH Stop: 03/04/21 08:59 Last Admin: 02/05/21 08:30 Dose: 5 mg Documented by: Atorvastatin Calcium (Atorvastatin 40 Mg Tab) 40 mg PO HS NOAH Stop: 03/03/21 21:59 Last Admin: 02/04/21 20:40 Dose: 40 mg Documented by: Dextrose (Dextrose 50% 50 Ml Syringe) 25 - 50 ml IV UD PRN; Protocol PRN Reason: Hypoglycemia Protocol Stop: 03/03/21 21:36 Docusate Sodium (Docusate Sodium 100 Mg Cap) 100 mg PO BID PRN PRN Reason: Constipation Stop: 03/03/21 21:36 Famotidine (Famotidine 40 Mg Tablet) 40 mg PO HS NOAH Stop: 03/03/21 21:59 Last Admin: 02/04/21 20:40 Dose: 40 mg Documented by: Fluticasone Propionate (Fluticasone Propionate Na Spr 16 Gm Btl) 2 sprays ARIELLE DAILY PRN PRN Reason: Allergy Symptoms Stop: 03/03/21 21:36 Gabapentin (Gabapentin 300 Mg Cap) 300 mg PO TID NOAH Stop: 03/03/21 21:59 Last Admin: 02/05/21 08:31 Dose: 300 mg Documented by: Glucagon (Glucagon For Inj 1 Mg Vial) 1 mg SQ UD PRN; Protocol PRN Reason: Hypoglycemia Protocol Stop: 03/03/21 21:36 Glucose (Glucose 10 Tabs/Tube) 4 - 8 tabs PO UD PRN; Protocol PRN Reason: Hypoglycemia Protocol Stop: 03/03/21 21:36 Glucose (Glucose 40% Gel 15 Gm Tube) 15 - 30 gm PO UD PRN; Protocol PRN Reason: Hypoglycemia Protocol Stop: 03/03/21 21:36 Ceftriaxone Sodium 2,000 mg/ (Dextrose) 70 mls @ 100 mls/hr IV Q24H [facility]; Protocol Stop: 02/13/21 12:29 Last Infusion: 02/04/21 13:16 Dose: Infused Documented by: Metronidazole (Flagyl) 500 mg in 100 mls @ 100 mls/hr IV Q8H NOAH Stop: 02/13/21 12:59 Last Infusion: 02/05/21 06:59 Dose: Infused Documented by: Insulin Aspart (Insulin Aspart 100 Units/Ml 3 Ml Pen) 0 units SC ACHS [facility] Stop: 03/03/21 21:59 Last Admin: 02/05/21 08:32 Dose: 19 units Documented by: Insulin Glargine (Insulin Glargine Solostar 100 Units/Ml 3 Ml Pen) 25 units SC DAILY NOAH Stop: 03/07/21 08:59 Last Admin: 02/05/21 08:31 Dose: 25 units Documented by: Levothyroxine Sodium (Levothyroxine Sodium 112 Mcg Tablet) 112 mcg PO DAILYBB [facility] Stop: 03/04/21 06:29 Last Admin: 02/05/21 05:48 Dose: 112 mcg Documented by: Loratadine (Loratadine 10 Mg Tab) 10 mg PO DAILY NOAH Stop: 03/04/21 08:59 Last Admin: 02/05/21 08:30 Dose: 10 mg Documented by: Magnesium Oxide (Magnesium Oxide 400 Mg Tab) 400 mg PO BID [facility] Stop: 03/04/21 20:59 Last Admin: 02/05/21 08:29 Dose: 400 mg Documented by: Metoprolol Succinate (Metoprolol Succ 50mg Ext Rel Tab) 50 mg PO DAILY NOAH Stop: 03/06/21 08:59 Last Admin: 02/05/21 08:29 Dose: 50 mg Documented by: Miscellaneous (Carbohydrates For Hypoglycemia ) 15 - 30 gm PO UD PRN PRN Reason: Hypoglycemia Protocol Stop: 03/03/21 21:36 Miscellaneous Information (Pharmacy Glycemic Mgmt Consult) 1 ea N/A UD PRN PRN Reason: Consult Stop: 03/04/21 13:43 Ondansetron HCl (Ondansetron Inj 2 Mg/Ml 2 Ml Vial) 4 mg IV Q6H PRN PRN Reason: Nausea Stop: 03/03/21 21:36 Pantoprazole Sodium (Pantoprazole 40 Mg Tab) 40 mg PO DAILYBB [facility] Stop: 03/04/21 06:29 Last Admin: 02/05/21 05:48 Dose: 40 mg Documented by: Polyethylene Glycol (Polyethylene (Miralax) 17 Gm Pack) 17 gm PO DAILY@1200 PRN PRN Reason: Constipation Stop: 03/03/21 21:36 Polyethylene Glycol (Polyethylene (Miralax) 17 Gm Pack) 17 gm PO TID NOAH Stop: 03/05/21 13:59 Last Admin: 02/05/21 08:28 Dose: 17 gm Documented by: Psyllium Hydrophilic Mucilloid (Psyllium 58.6% Powder Packet) 1 pkt PO DAILY NOAH Stop: 03/04/21 08:59 Last Admin: 02/05/21 08:28 Dose: 1 pkt Documented by: Senna/Docusate Sodium (Docusate Sodium/Senna 50/8.6mg Tab) 1 tab PO DAILY@1200 PRN PRN Reason: Constipation Stop: 03/03/21 21:36 Senna/Docusate Sodium (Docusate Sodium/Senna 50/8.6mg Tab) 1 tab PO BID [facility] Stop: 03/06/21 08:59 Last Admin: 02/05/21 08:37 Dose: 1 tab Documented by: Tamsulosin HCl (Tamsulosin Hcl 0.4 Mg Cap) 0.4 mg PO HS [facility] Stop: 03/04/21 20:59 Last Admin: 02/04/21 20:39 Dose: 0.4 mg Documented by: PG Care Time/CCT Total # of Minutes Spent Total Time Spent with Patient: Total time spent is greater than 50% in coordination of care (as documented) at patient's floor/unit and/or counseling patient: Coding Level of Care Code 16476 Subseq Hosp Care Lvl 3 Diagnoses Sepsis A41.9 Sepsis acute organ dysfunction status: without acute organ dysfunction Sepsis type: sepsis due to unspecified organism Acute UTI N39.0 Urinary retention R33.9 Proctocolitis K52.9 Diarrhea R19.7 Sinus tachycardia R00.0 Cauda equina compression G83.4 Spinal stenosis, lumbar region with neurogenic claudication M48.062 Gout M10.9 Chronicity: chronic Gout etiology: unspecified cause Gout site: unspecified site Pulmonary embolus I26.99 (1) Gout Chronicity: chronic Gout etiology: unspecified cause Gout site: unspecified site (2) Sepsis Sepsis acute organ dysfunction status: without acute organ dysfunction Sepsis type: sepsis due to unspecified organism Qualified Code(s): A41.9 - Sepsis, unspecified organism
[2021-02-05] MEDS ORDERED: bisacodyL 10 MG SUPP PR STA (09:48)
--- NOTE | 2021-02-05 11:58 | Pharmacy Report ---
Pharmacy Glycemic Short Note 2 - Date of Service February 05, 2021 - Glycemic Short BSG Results (Last 24 hours): 02/04/21 02/04/21 02/05/21 16:47 20:20 07:53 POC Glucose 157 H 210 H 178 H OUTPATIENT ANTIDIABETIC REGIMEN: * glimepiride 2 mg daily, metformin 1 gm bid * A1c 7.7% ASSESSMENT: 02/05 * Pt has received 73 units of insulin over the past 24hrs * 20 units of basal with Lantus * 53 units of bolus with NovoLog * BSGs [phone] mg/dl * All BSGs above goal range for inpatient targets. * Will increase Lantus and tighten CF/CR to maintain BSGs <180 mg/dl 02/02 * 70 year old admitted with UTI. Type 2 diabetic managed on orals at home. Pharmacy consulted to help with glycemic management. * SSI started last evening - Fasting BSG elevated at 206 mg/dL, lunch time BSG 193 mg/dL * Plan to give 10 units of Lantus x 1 now, will tighten CF/CR to stress of 2 for dosing PLAN FOR INPATIENT GLYCEMIC CONTROL: * Hold outpatient oral diabetes medications * Basal insulin * Lantus 25 units SQ AM * Bolus insulin * NovoLog per scale ACHS or Q6hrs while NPO * Goal Range: Low 110 mg/dL - High 140 mg/dL * Correction Factor: 25 mg/dL/unit * Nutritional / Prandial insulin per carb ratio of 1 unit per 4 grams CHO consumed PLAN FOR DISCHARGE: * A1c = 7.7 % on 01/15/21 * Goal A1c = 7 % based on age and comorbidities * May consider increasing glimepiride to achieve goal A1c
[2021-02-05] MEDS: cefTRIAXone SODIUM 2,000 MG in DEXTROSE 5% 50 ML IV SCH (13:04)
[2021-02-05] MEDS: ATORVASTATIN 40 MG TAB PO SCH (20:54)
[2021-02-05] MEDS: FAMOTIDINE 40 MG TABLET PO SCH (20:54)
[2021-02-05] MEDS: TAMSULOSIN HCL 0.4 MG CAP PO SCH (20:59)
[2021-02-06] MEDS: LEVOTHYROXINE SODIUM 112 MCG TABLET PO SCH (05:20)
[2021-02-06] MEDS: PANTOprazole 40 MG TAB PO SCH (05:20)
[2021-02-06] MEDS: metroNIDAZOLE 500 MG/100 ML BAG IV SCH ×2 (05:20→13:06)
[2021-02-06] MEDS: allopurinoL 300 MG TAB PO SCH (09:02)
[2021-02-06] MEDS: GABAPENTIN 300 MG CAP PO SCH ×3 (09:02→21:10)
[2021-02-06] MEDS: APIXABAN 5 MG TABLET PO SCH ×2 (09:02→21:10)
[2021-02-06] MEDS: PSYLLIUM or GUAR GUM FIBER POWDER PACKET PO SCH (09:03)
[2021-02-06] MEDS: LORATADINE 10 MG TAB PO SCH (09:03)
[2021-02-06] MEDS: METOPROLOL SUCC 50MG EXT REL TAB PO SCH (09:03)
[2021-02-06] MEDS: MAGNESIUM OXIDE 400 MG TAB PO SCH ×2 (09:03→21:10)
[2021-02-06] MEDS: DOCUSATE SODIUM/SENNA 50/8.6MG TAB PO SCH (09:04)
[2021-02-06] MEDS: POLYETHYLENE (MIRALAX) 17 GM PACK PO SCH ×3 (09:04→21:11)
[2021-02-06] MEDS: INSULIN GLARGINE SOLOSTAR 100 UNITS/ML 3 ML PEN SC SCH (09:06)
[2021-02-06] MEDS: INSULIN ASPART 100 UNITS/ML 3 ML PEN SC SCH ×4 (09:07→21:11)
[2021-02-06] MEDS: cefTRIAXone SODIUM 2,000 MG in DEXTROSE 5% 50 ML IV SCH (12:00)
--- NOTE | 2021-02-06 12:09 | Hospitalist Progress Note ---
Date of Service February 06, 2021 Assessment & Plan (1) Sepsis: Source - catheter associated UTI +/- proctocolitis Lactate 1.8 on admission continue ceftriaxone IV while admitted, would complete 14 days total due to complicated UTI with catheter could switch to oral option on discharge, sensitive to PCN and 2nd generation cephalosporins --> switching to oral today (on day 4 of treatment and will need 10 more days after today) continue metronidazole IV for colitis component? would complete 7 days, could change to PO on discharge, he is moving bowels (on day 4 of therapy) -- will switch to PO 02/06 and will need 3 more days tx Follow up blood cultures - negative at 72 hours, repeat also NGTD thus far Follow-up stool cultures - negative to date Urine culture growing E. coli that is resistant to quinolones no fever, vitals stable, feeling much better past few days he is stable from infectious standpoint, need to determine disposition for continued physical therapy from cauda equina syndrome, see below (2) Acute UTI: Catheter associated Urine culture growing E. coli resistant to fluoroquinolones and Bactrim. Continue Gray catheter placed in the emergency room, needs to follow up with Urology continue Ceftriaxone IV while admitted, change to PO on discharge, complete 14 days total -- see above (3) Urinary retention: Continue Gray catheter. Do not remove. Discussed with urology and silvia ent already has follow-up the issue stems from cauda equina syndrome, possible neurogenic bladder (4) Proctocolitis: Possibly source of infection therefore cover with ceftriaxone and metronidazole. large BM today and another small BM afterwards stop the Miralax TID, continue on Miralax daily and Senokot (5) Diarrhea: C. difficile negative. Stool cultures negative to date. (6) Sinus tachycardia: ? Suspect multifactorial with recent diagnosis of pulmonary embolism and current infection. No reason to suspect Apixaban failure at this time. can downgrade off tele (7) Cauda equina compression: Cauda equina compression/lumbar spinal stenosis with neurogenic claudication- PT/OT eval's Continue [place], gabapentin he was at [facility], he does not want to go back he feels he can do exercises at home and get home therapy, he says his family can help him case management can work on plan --> plans for [facility] for rehab. CM following and awaiting return call back to see if able to take as early as tomorrow (8) Spinal stenosis, lumbar region with neurogenic claudication: See above (9) Gout: No acute flare Continue allopurinol (10) Pulmonary embolus: Diagnosed 01/23/2021 Continue apixaban 5 mg p.o. twice daily (finished 10 mg induction) Dispo: continued inpatient stay possible d/c to rehab tomorrow Admission and Anticipated Discharge Date Admission Date: February 01, 2021 Subjective Patient evaluated this morning. Feeling well. Multiple episodes of diarrhea this morning but have slowed. One more day of Flagyl and will transition to oral cephalosporin for AM. Good experience with rehab at [facility] however did not have good medical/nursing care and laid in stool for hours. Plans for d/c to [facility] for continued rehab and will then transition to home health to have step son and help at home -- he had been utilizing slide board at rehab and feels much better in chair. Discussed slightly dry -- he is agreeable to push oral fluids today but discussed may need some IVF to combat diarrhea if unable to keep up with oral needs. No fever, chills, chest pain, shortness of breath, abdominal pain, nausea or vomiting at this time. Of note, he typically lets medical things go due to high tolerance -- he was a lead welder for occupation. States in the 1970s he had testicular ca/swelling up to 7cm and required surgical correction at that time and chemo/radiation that left him with difficulty swallowing but this has returned to normal. Review of Systems Review of Systems: All systems reviewed & are unremarkable except as noted in HPI & below Physical Exam Constitutional: WD/WN, vitals as above well developed, well nourished and comfortable; no acute distress Eyes: + anicteric sclerae; normal pupil size ENMT: external ear and nose normal, oropharynx normal Neck: trachea midline, no thyromegaly Respiratory: normal respiratory effort, lungs clear to auscultation Cardiovascular: RRR, no murmur, no edema Rate/Rhythm: regular rhythm and + tachycardic Heart Sounds: + murmur (2/6 RORY RUSB) Vessels: no JVD Extremities: normal capillary refill and + pedal edema (1+ equal pretibial pitting); no calf tenderness Gastrointestinal (Abdomen): normal bowel sounds, soft, nontender, no hepatosplenomegaly Inspection/Auscultation: + abdomen distended and normal bowel sounds Percussion/Palpation: abdomen soft and + tympanic to percussion; abdomen nontender Musculoskeletal: Head/Neck/Chest: normocephalic, head atraumatic and neck supple Extremities: extremities normal to inspection and + abnormal strength (4/5 in legs bilaterally); no cyanosis, no clubbing and no petechiae Skin: no rashes, warm and dry Neurologic: CN's II-XI intact bilaterally, moves all extremities and awake; no focal motor deficits and not confused Speech / Cognition: normal speech Motor/Sensory: no tremor and no pronator drift Gait: + gait assisted (walker) Psychiatric: A+Ox3, euthymic affect Lymphatic: no cervical or axillary lymphadenopathy Results & Data Results & Data ([facility]) Vital Signs (Past 12 Hours) Vital Signs Temp Pulse Resp BP Pulse Ox 02/06/21 07:52 36.6 C 92 H 16 130/84 93 Laboratory Results 02/06/21 02/06/21 02/06/21 Range/Units 12:37 12:37 12:15 WBC 6.00 (4.8-10.8) K/uL RBC 3.93 L (4.7-6.1) M/uL Hgb 12.0 L (14.0-18.0) g/dL Hct 35.1 L (42-52) % MCV 89.3 (80-100) fL MCH 30.5 (25-34) pg MCHC 34.2 (32-36) g/dL RDW Std Deviation 41.0 (36.4-46.3) fL RDW Coeff of Radha 12.5 (11.5-14.5) % Plt Count 305 (130-400) K/uL MPV 10.0 (7.4-10.4) fL Sodium 134 L (136-145) mmol/L Potassium 3.6 (3.5-5.1) mmol/L Chloride 96 L (98-107) mmol/L Carbon Dioxide 32 (21-32) mmol/L Anion Gap 6.0 (3-11) BUN 13 (7-18) mg/dl Creatinine 0.91 (0.6-1.4) mg/dl Est Cr Clr Drug Dosing 95.2 ml/min Est GFR ( Amer) 99.3 ml/min Est GFR (Non-Af Amer) 85.7 ml/min BUN/Creatinine Ratio 14.5 (10-20) Glucose 165 H (70-99) mg/dl POC Glucose 185 H (70-99) mg/dl Calcium 8.8 (8.5-10.1) mg/dl Total Bilirubin 0.4 (0.2-1) mg/dl AST 18 (15-37) U/L ALT 31 (12-78) U/L Alkaline Phosphatase 89 (45-117) U/L Total Protein 6.7 (6.4-8.2) gm/dl Albumin 2.5 L (3.4-5.0) gm/dl Globulin 4.2 H (2.5-4.0) gm/dl Albumin/Globulin Ratio 0.6 L (0.9-2) 02/06/21 02/05/21 02/05/21 Range/Units 08:25 20:36 17:10 WBC (4.8-10.8) K/uL RBC (4.7-6.1) M/uL Hgb (14.0-18.0) g/dL Hct (42-52) % MCV (80-100) fL MCH (25-34) pg MCHC (32-36) g/dL RDW Std Deviation (36.4-46.3) fL RDW Coeff of Radha (11.5-14.5) % Plt Count (130-400) K/uL MPV (7.4-10.4) fL Sodium (136-145) mmol/L Potassium (3.5-5.1) mmol/L Chloride (98-107) mmol/L Carbon Dioxide (21-32) mmol/L Anion Gap (3-11) BUN (7-18) mg/dl Creatinine (0.6-1.4) mg/dl Est Cr Clr Drug Dosing ml/min Est GFR ( Amer) ml/min Est GFR (Non-Af Amer) ml/min BUN/Creatinine Ratio (10-20) Glucose (70-99) mg/dl POC Glucose 155 H 145 H 144 H (70-99) mg/dl Calcium (8.5-10.1) mg/dl Total Bilirubin (0.2-1) mg/dl AST (15-37) U/L ALT (12-78) U/L Alkaline Phosphatase (45-117) U/L Total Protein (6.4-8.2) gm/dl Albumin (3.4-5.0) gm/dl Globulin (2.5-4.0) gm/dl Albumin/Globulin Ratio (0.9-2) PG Care Time/CCT Total # of Minutes Spent Total Time Spent with Patient: Total time spent is greater than 50% in co ordination of care (as documented) at patient's floor/unit and/or counseling patient: Coding Level of Care Code 12202 Subseq Hosp Care Lvl 3 Diagnoses Sepsis A41.9 Sepsis acute organ dysfunction status: without acute organ dysfunction Sepsis type: sepsis due to unspecified organism Acute UTI N39.0 Urinary retention R33.9 Proctocolitis K52.9 Diarrhea R19.7 Sinus tachycardia R00.0 Cauda equina compression G83.4 Spinal stenosis, lumbar region with neurogenic claudication M48.062 Gout M10.9 Chronicity: chronic Gout etiology: unspecified cause Gout site: unspecified site Pulmonary embolus I26.99 (1) Gout Chronicity: chronic Gout etiology: unspecified cause Gout site: unspecified site (2) Sepsis Sepsis acute organ dysfunction status: without acute organ dysfunction Sepsis type: sepsis due to unspecified organism Qualified Code(s): A41.9 - Sepsis, unspecified organism
[2021-02-06 12:50] LABS: Hematocrit (blood only) 35.1 % (42-52); Mean Corpuscular Hemoglobin 30.5 pg (25-34); Mean Corpuscular Hgb Conc 34.2 g/dL (32-36); Mean Corpuscular Volume 89.3 fL (80-100); Platelet Count 305 K/uL (130-400); RDW Coefficient of Variation 12.5 % (11.5-14.5); Red Blood Count 3.93 M/uL (4.7-6.1)
[2021-02-06 13:13] LABS: Albumin Level 2.5 gm/dl (3.4-5.0); BUN Creatinine Ratio 14.5 (10-20); Calcium 8.8 mg/dl (8.5-10.1); Creatinine Clr Calc Pharmacy 95.2 ml/min; Est GFR (African American) 99.3 ml/min; Est GFR (Non-African American) 85.7 ml/min; Potassium 3.6 mmol/L (3.5-5.1)
[2021-02-06 13:15] LABS: Albumin Globulin Ratio 0.6 (0.9-2); Bilirubin,Total 0.4 mg/dl (0.2-1); Globulin 4.2 gm/dl (2.5-4.0); Total Protein 6.7 gm/dl (6.4-8.2)
[2021-02-06] MEDS ORDERED: SODIUM CHLORIDE 0.9% 1000ML 1,000 ML IV SCH (17:45)
[2021-02-06] MEDS: metroNIDAZOLE 500 MG TAB PO SCH (21:10)
[2021-02-06] MEDS: ATORVASTATIN 40 MG TAB PO SCH (21:10)
[2021-02-06] MEDS: TAMSULOSIN HCL 0.4 MG CAP PO SCH (21:10)
[2021-02-06] MEDS: FAMOTIDINE 40 MG TABLET PO SCH (21:10)
[2021-02-07] MEDS: PANTOprazole 40 MG TAB PO SCH (05:53)
[2021-02-07] MEDS: LEVOTHYROXINE SODIUM 112 MCG TABLET PO SCH (05:53)
[2021-02-07 06:02] LABS: Basophils # (auto) 0.03 K/uL (0-0.2); Basophils % (auto) 0.4 %; Eosinophils # (auto) 0.21 K/uL (0-0.5); Eosinophils % (auto) 3.1 %; Hematocrit (blood only) 33.5 % (42-52); Hemoglobin 11.4 g/dL (14.0-18.0); Immature Granulocytes # (auto) 0.02 K/uL (0.00-0.02); Immature Granulocytes % (auto) 0.3 %; Lymphocytes # (auto) 1.74 K/uL (1.2-3.4); Lymphocytes % (auto) 25.4 %; Mean Corpuscular Volume 88.2 fL (80-100); Mean Platelet Volume 9.8 fL (7.4-10.4); Monocytes # (auto) 0.58 K/uL (0.11-0.59); Monocytes % (auto) 8.5 %; Neutrophils # (auto) 4.27 K/uL (1.4-6.5); Neutrophils % (auto) 62.3 %; Platelet Count 292 K/uL (130-400); RDW Coefficient of Variation 12.5 % (11.5-14.5); RDW Standard Deviation 40.5 fL (36.4-46.3); White Blood Count 6.85 K/uL (4.8-10.8)
[2021-02-07 06:37] LABS: Albumin Level 2.5 gm/dl (3.4-5.0); Calcium 8.1 mg/dl (8.5-10.1); Creatinine Clr Calc Pharmacy 93.2 ml/min; Est GFR (African American) 96.7 ml/min; Est GFR (Non-African American) 83.5 ml/min; Potassium 3.8 mmol/L (3.5-5.1)
[2021-02-07 06:39] LABS: Albumin Globulin Ratio 0.7 (0.9-2); Bilirubin,Total 0.7 mg/dl (0.2-1); Globulin 3.8 gm/dl (2.5-4.0); Total Protein 6.3 gm/dl (6.4-8.2)
--- NOTE | 2021-02-07 08:53 | Pharmacy Report ---
Pharmacy Glycemic Short Note 2 - Date of Service February 07, 2021 - Glycemic Short BSG Results (Last 24 hours): 02/06/21 02/06/21 02/06/21 12:15 12:37 17:25 Glucose 165 H POC Glucose 185 H 163 H 02/06/21 02/07/21 02/07/21 20:24 05:43 07:32 Glucose 149 H POC Glucose 127 H 162 H OUTPATIENT ANTIDIABETIC REGIMEN: * Glimepiride 2 mg daily * Metformin 1 gm bid * A1c 7.7% (01/15/21) ASSESSMENT: 02/07: * Patient received a total of 66 units of insulin yesterday * 25 units basal + 41 units bolus * BSGs were [phone] mg/dL, acceptable * Fasting increased slightly to 162 mg/dL this morning * Will increase basal and tighten correctional this morning PLAN FOR INPATIENT GLYCEMIC CONTROL: * Hold outpatient oral diabetes medications * Basal insulin - increased * Lantus 30 units SQ AM * Bolus insulin - tightened correction factor * NovoLog per scale ACHS or Q6hrs while NPO * Goal Range: Low 110 mg/dL - High 140 mg/dL * Correction Factor: 20 mg/dL/unit * Nutritional / Prandial insulin per carb ratio of 1 unit per 4 grams CHO consumed PLAN FOR DISCHARGE: * A1c = 7.7 % on 01/15/21 * Goal A1c = 7 % based on age and comorbidities * May consider increasing glimepiride to achieve goal A1c
[2021-02-07] MEDS ORDERED: INSULIN GLARGINE SOLOSTAR 100 UNITS/ML 3 ML PEN SC SCH (09:00)
[2021-02-07] MEDS: METOPROLOL SUCC 50MG EXT REL TAB PO SCH (09:01)
[2021-02-07] MEDS: allopurinoL 300 MG TAB PO SCH (09:01)
[2021-02-07] MEDS: PSYLLIUM or GUAR GUM FIBER POWDER PACKET PO SCH (09:01)
[2021-02-07] MEDS: LORATADINE 10 MG TAB PO SCH (09:01)
[2021-02-07] MEDS: MAGNESIUM OXIDE 400 MG TAB PO SCH ×2 (09:01→21:38)
[2021-02-07] MEDS: GABAPENTIN 300 MG CAP PO SCH ×3 (09:01→21:38)
[2021-02-07] MEDS: APIXABAN 5 MG TABLET PO SCH ×2 (09:02→21:37)
[2021-02-07] MEDS: cephALEXin 500 MG CAP PO SCH ×4 (09:02→21:37)
[2021-02-07] MEDS: POLYETHYLENE (MIRALAX) 17 GM PACK PO SCH ×2 (09:03→13:11)
[2021-02-07] MEDS: INSULIN ASPART 100 UNITS/ML 3 ML PEN SC SCH ×4 (09:05→21:45)
[2021-02-07] MEDS: metroNIDAZOLE 500 MG TAB PO SCH ×2 (09:13→21:38)
--- NOTE | 2021-02-07 09:29 | Hospitalist Progress Note ---
Date of Service February 07, 2021 Assessment & Plan (1) Sepsis: Source - catheter associated UTI +/- proctocolitis Lactate 1.8 on admission continue ceftriaxone IV while admitted, would complete 14 days total due to complicated UTI with catheter could switch to oral option on discharge, sensitive to PCN and 2nd generation cephalosporins --> switched to Keflex 02/06 (on day 5 of treatment and will need 9 more days after today) continue metronidazole IV for colitis component? --> on misa 5 of treatment, switched to PO on 02/06 and will need additional 2 days of tx Follow up blood cultures - negative at 72 hours, repeat also NGTD thus far Follow-up stool cultures - negative to date Urine culture growing E. coli that is resistant to quinolones no fever, vitals stable, feeling much better past few days -- reported feeling "the best" today he is stable from infectious standpoint, need to determine disposition for continued physical therapy from cauda equina syndrome, see below (2) Acute UTI: Catheter associated Urine culture growing E. coli resistant to fluoroquinolones and Bactrim. Continue Osorio catheter placed in the emergency room, needs to follow up with Urology continue Ceftriaxone IV while admitted, changed to PO as above to complete 14 days total with Keflex (3) Urinary retention: Continue Osorio catheter. Do not remove. Discussed with urology and patient already has follow-up the issue stems from cauda equina syndrome, possible neurogenic bladder (4) Proctocolitis: Possibly source of infection therefore cover with ceftriaxone and met ronidazole. Had been on large doses of colace, senna, miralax and had continued diarrhea (he states he had been going 4-5 days at home without BM and we discussed adding miralax/colace after 1-2 days to prevent recurrance) Stopped stool softeners --- DIARRHEA has slowed cdiff negative x 2 (5) Diarrhea: C. difficile negative. Stool cultures negative to date. Slowing -- repeat cdiff also negative d/c'd stool softeners -- make miralax prn only (6) Sinus tachycardia: ? Suspect multifactorial with recent diagnosis of pulmonary embolism and current infection. No reason to suspect Apixaban failure at this time. can downgrade off tele rates 80s (7) Cauda equina compression: Cauda equina compression/lumbar spinal stenosis with neurogenic claudication- PT/OT eval's Continue [place], gabapentin he was at [facility], he does not want to go back he feels he can do exercises at home and get home therapy, he says his family can help him case management can work on plan --> plans for [facility] for rehab. CM following and awaiting return call back -- unable to take today but can take tomorrow. PT worked with patient today and able to use slide board, much more comfortable up in chair, improved strength (8) Spinal stenosis, lumbar region with neurogenic claudication: See above (9) Gout: No acute flare Continue allopurinol (10) Pulmonary embolus: Diagnosed 01/23/2021 Continue apixaban 5 mg p.o. twice daily (finished 10 mg induction) Dispo: continued inpatient stay d/c to rehab tomorrow Admission and Anticipated Discharge Date Admission Date: February 01, 2021 Subjective Patient evaluated this afternoon. Doing MUCH better. Worked with therapy this AM and was able to use slide board by himself for transfer to wheelchair. Back feels much better sitting up. Diarrhea has slowed. Awaiting bed at [facility] -- likely d/c tomorrow morning. Feeling the best in days. No fever, chills, chest pain, shortness of breath, abdominal pain, nausea, or vomiting at this time. Questions/concerns addressed. Review of Systems Review of Systems: All systems reviewed & are unremarkable except as noted in HPI & below Physical Exam Constitutional: well developed, well nourished and comfortable; no acute distress Eyes: + anicteric sclerae; normal pupil size ENMT: external ear and nose normal, oropharynx normal Neck: trachea midline, no thyromegaly Respiratory: normal respiratory effort, lungs clear to auscultation Cardiovascular: Rate/Rhythm: regular rhythm Heart Sounds: + murmur (2/6 RORY RUSB) Vessels: no JVD Extremities: normal capillary refill and + pedal edema (kenny pretibial pitting); no calf tenderness Gastrointestinal (Abdomen): normal bowel sounds, soft, nontender, no hepato splenomegaly Musculoskeletal: Head/Neck/Chest: normocephalic, head atraumatic and neck supple Extremities: extremities normal to inspection and + abnormal strength (4/5 in legs bilaterally); no cyanosis, no clubbing and no petechiae Skin: no rashes, warm and dry Neurologic: CN's II-XI intact bilaterally, moves all extremities and awake; no focal motor deficits and not confused Speech / Cognition: normal speech Motor/Sensory: no tremor and no pronator drift Psychiatric: A+Ox3, euthymic affect Genitourinary: OSORIO draining clear yellow urine Lymphatic: no cervical or axillary lymphadenopathy Results & Data Results & Data ([facility]) Vital Signs (Past 12 Hours) Vital Signs Temp Pulse Resp BP Pulse Ox 02/07/21 08:04 37.0 C 88 16 120/80 96 02/06/21 23:20 37 C 87 18 147/84 H 93 Laboratory Results 02/07/21 02/07/21 02/07/21 Range/Units 07:32 05:43 05:43 WBC 6.85 (4.8-10.8) K/uL RBC 3.80 L (4.7-6.1) M/uL Hgb 11.4 L (14.0-18.0) g/dL Hct 33.5 L (42-52) % MCV 88.2 (80-100) fL MCH 30.0 (25-34) pg MCHC 34.0 (32-36) g/dL RDW Std Deviation 40.5 (36.4-46.3) fL RDW Coeff of Radha 12.5 (11.5-14.5) % Plt Count 292 (130-400) K/uL MPV 9.8 (7.4-10.4) fL Immature Gran % (Auto) 0.3 % Neut % (Auto) 62.3 % Lymph % (Auto) 25.4 % Real % (Auto) 8.5 % Eos % (Auto) 3.1 % Baso % (Auto) 0.4 % Neut # (Auto) 4.27 (1.4-6.5) K/uL Lymph # (Auto) 1.74 (1.2-3.4) K/uL Real # (Auto) 0.58 (0.11-0.59) K/uL Eos # (Auto) 0.21 (0-0.5) K/uL Baso # (Auto) 0.03 (0-0.2) K/uL Immature Gran # (Auto) 0.02 (0.00-0.02) K/uL Sodium 136 (136-145) mmol/L Potassium 3.8 (3.5-5.1) mmol/L Chloride 99 (98-107) mmol/L Carbon Dioxide 34 H (21-32) mmol/L Anion Gap 3.0 (3-11) BUN 13 (7-18) mg/dl Creatinine 0.93 (0.6-1.4) mg/dl Est Cr Clr Drug Dosing 93.2 ml/min Est GFR ( Amer) 96.7 ml/min Est GFR (Non-Af Amer) 83.5 ml/min BUN/Creatinine Ratio 14.0 (10-20) Glucose 149 H (70-99) mg/dl POC Glucose 162 H (70-99) mg/dl Calcium 8.1 L (8.5-10.1) mg/dl Total Bilirubin 0.7 (0.2-1) mg/dl AST 15 (15-37) U/L ALT 31 (12-78) U/L Alkaline Phosphatase 84 (45-117) U/L Total Protein 6.3 L (6.4-8.2) gm/dl Albumin 2.5 L (3.4-5.0) gm/dl Globulin 3.8 (2.5-4.0) gm/dl Albumin/Globulin Ratio 0.7 L (0.9-2) Stl C. diff Tox B Gene (Neg) 02/06/21 02/06/21 02/06/21 Range/Units 20:24 18:25 17:25 WBC (4.8-10.8) K/uL RBC (4.7-6.1) M/uL Hgb (14.0-18.0) g/dL Hct (42-52) % MCV (80-100) fL MCH (25-34) pg MCHC (32-36) g/dL RDW Std Deviation (36.4-46.3) fL RDW Coeff of Radha (11.5-14.5) % Plt Count (130-400) K/uL MPV (7.4-10.4) fL Immature Gran % (Auto) % Neut % (Auto) % Lymph % (Auto) % Real % (Auto) % Eos % (Auto) % Baso % (Auto) % Neut # (Auto) (1.4-6.5) K/uL Lymph # (Auto) (1.2-3.4) K/uL Real # (Auto) (0.11-0.59) K/uL Eos # (Auto) (0-0.5) K/uL Baso # (Auto) (0-0.2) K/uL Immature Gran # (Auto) (0.00-0.02) K/uL Sodium (136-145) mmol/L Potassium (3.5-5.1) mmol/L Chloride (98-107) mmol/L Carbon Dioxide (21-32) mmol/L Anion Gap (3-11) BUN (7-18) mg/dl Creatinine (0.6-1.4) mg/dl Est Cr Clr Drug Dosing ml/min Est GFR ( Amer) ml/min Est GFR (Non-Af Amer) ml/min BUN/Creatinine Ratio (10-20) Glucose (70-99) mg/dl POC Glucose 127 H 163 H (70-99) mg/dl Calcium (8.5-10.1) mg/dl Total Bilirubin (0.2-1) mg/dl AST (15-37) U/L ALT (12-78) U/L Alkaline Phosphatase (45-117) U/L Total Protein (6.4-8.2) gm/dl Albumin (3.4-5.0) gm/dl Globulin (2.5-4.0) gm/dl Albumin/Globulin Ratio (0.9-2) Stl C. diff Tox B Gene Negative Cdiff Gene (Neg) 02/06/21 02/06/21 02/06/21 Range/Units 12:37 12:37 12:15 WBC 6.00 (4.8-10.8) K/uL RBC 3.93 L (4.7-6.1) M/uL Hgb 12.0 L (14.0-18.0) g/dL Hct 35.1 L (42-52) % MCV 89.3 (80-100) fL MCH 30.5 (25-34) pg MCHC 34.2 (32-36) g/dL RDW Std Deviation 41.0 (36.4-46.3) fL RDW Coeff of Radha 12.5 (11.5-14.5) % Plt Count 305 (130-400) K/uL MPV 10.0 (7.4-10.4) fL Immature Gran % (Auto) % Neut % (Auto) % Lymph % (Auto) % Real % (Auto) % Eos % (Auto) % Baso % (Auto) % Neut # (Auto) (1.4-6.5) K/uL Lymph # (Auto) (1.2-3.4) K/uL Real # (Auto) (0.11-0.59) K/uL Eos # (Auto) (0-0.5) K/uL Baso # (Auto) (0-0.2) K/uL Immature Gran # (Auto) (0.00-0.02) K/uL Sodium 134 L (136-145) mmol/L Potassium 3.6 (3.5-5.1) mmol/L Chloride 96 L (98-107) mmol/L Carbon Dioxide 32 (21-32) mmol/L Anion Gap 6.0 (3-11) BUN 13 (7-18) mg/dl Creatinine 0.91 (0.6-1.4) mg/dl Est Cr Clr Drug Dosing 95.2 ml/min Est GFR ( Amer) 99.3 ml/min Est GFR (Non-Af Amer) 85.7 ml/min BUN/Creatinine Ratio 14.5 (10-20) Glucose 165 H (70-99) mg/dl POC Glucose 185 H (70-99) mg/dl Calcium 8.8 (8.5-10.1) mg/dl Total Bilirubin 0.4 (0.2-1) mg/dl AST 18 (15-37) U/L ALT 31 (12-78) U/L Alkaline Phosphatase 89 (45-117) U/L Total Protein 6.7 (6.4-8.2) gm/dl Albumin 2.5 L (3.4-5.0) gm/dl Globulin 4.2 H (2.5-4.0) gm/dl Albumin/Globulin Ratio 0.6 L (0.9-2) Stl C. diff Tox B Gene (Neg) PG Care Time/CCT Total # of Minutes Spent Total Time Spent with Patient: Total time spent is greater than 50% in coordination of care (as documented) at patient's floor/unit and/or counseling patient: Coding Level of Care Code 39421 Subseq Hosp Care Lvl 3 Diagnoses Sepsis A41.9 Sepsis acute organ dysfunction status: without acute organ dysfunction Sepsis type: sepsis due to unspecified organism Acute UTI N39.0 Urinary retention R33.9 Proctocolitis K52.9 Diarrhea R19.7 Sinus tachycardia R00.0 Cauda equina compression G83.4 Spinal stenosis, lumbar region with neurogenic claudication M48.062 Gout M10.9 Gout site: unspecified site Gout etiology: unspecified cause Chronicity: chronic Pulmonary embolus I26.99 (1) Sepsis Sepsis acute organ dysfunction status: without acute organ dysfunction Sepsis type: sepsis due to unspecified organism Qualified Code(s): A41.9 - Sepsis, unspecified organism (2) Gout Gout site: unspecified site Gout etiology: unspecified cause Chronicity: chronic
[2021-02-07] MEDS: ATORVASTATIN 40 MG TAB PO SCH (21:37)
[2021-02-07] MEDS: TAMSULOSIN HCL 0.4 MG CAP PO SCH (21:38)
[2021-02-07] MEDS: FAMOTIDINE 40 MG TABLET PO SCH (21:38)
[2021-02-08] MEDS: LEVOTHYROXINE SODIUM 112 MCG TABLET PO SCH (06:04)
[2021-02-08] MEDS: PANTOprazole 40 MG TAB PO SCH (06:05)
[2021-02-08 07:47] LABS: Hematocrit (blood only) 35.7 % (42-52); Mean Corpuscular Hemoglobin 30.4 pg (25-34); Mean Corpuscular Hgb Conc 33.6 g/dL (32-36); Mean Corpuscular Volume 90.4 fL (80-100); Mean Platelet Volume 10.1 fL (7.4-10.4); Platelet Count 358 K/uL (130-400); RDW Coefficient of Variation 12.5 % (11.5-14.5); RDW Standard Deviation 41.5 fL (36.4-46.3); Red Blood Count 3.95 M/uL (4.7-6.1); White Blood Count 7.29 K/uL (4.8-10.8)
[2021-02-08 08:22] LABS: BUN Creatinine Ratio 15.2 (10-20); Calcium 8.9 mg/dl (8.5-10.1); Creatinine Clr Calc Pharmacy 91.2 ml/min; Est GFR (African American) 94.3 ml/min; Est GFR (Non-African American) 81.3 ml/min; Potassium 4.3 mmol/L (3.5-5.1)
[2021-02-08] MEDS: PSYLLIUM or GUAR GUM FIBER POWDER PACKET PO SCH (08:56)
[2021-02-08] MEDS: allopurinoL 300 MG TAB PO SCH (08:56)
[2021-02-08] MEDS: GABAPENTIN 300 MG CAP PO SCH (08:57)
[2021-02-08] MEDS: cephALEXin 500 MG CAP PO SCH (08:57)
[2021-02-08] MEDS: APIXABAN 5 MG TABLET PO SCH (08:57)
[2021-02-08] MEDS: METOPROLOL SUCC 50MG EXT REL TAB PO SCH (08:58)
[2021-02-08] MEDS: LORATADINE 10 MG TAB PO SCH (08:58)
[2021-02-08] MEDS: MAGNESIUM OXIDE 400 MG TAB PO SCH (08:58)
[2021-02-08] MEDS ORDERED: INSULIN GLARGINE SOLOSTAR 100 UNITS/ML 3 ML PEN SC SCH (09:00)
[2021-02-08] MEDS: metroNIDAZOLE 500 MG TAB PO SCH (09:06)
[2021-02-08] MEDS: INSULIN ASPART 100 UNITS/ML 3 ML PEN SC SCH ×2 (09:11→11:27)
--- NOTE | 2021-02-08 09:39 | Pharmacy Report ---
Pharmacy Glycemic Short Note 2 - Date of Service February 08, 2021 - Glycemic Short BSG Results (Last 24 hours): 02/07/21 02/07/21 02/07/21 12:09 17:18 20:55 Glucose POC Glucose 184 H 144 H 137 H 02/08/21 02/08/21 07:21 08:01 Glucose 150 H POC Glucose 172 H OUTPATIENT ANTIDIABETIC REGIMEN: * Glimepiride 2 mg daily * Metformin 1 gm bid * A1c 7.7% (01/15/21) ASSESSMENT: 02/08: * BSGs were acceptable yesterday: [phone] mg/dL * Received 30 units of basal + 50 units of bolus * Fasting slightly increased to 172 mg/dL today * Will increase Lantus by 20% today * Lunchtime BSGs have been elevated most days * Tightened CF/CR with breakfast only for now 02/07: * Patient received a total of 66 units of insulin yesterday * 25 units basal + 41 units bolus * BSGs were [phone] mg/dL, acceptable * Fasting increased slightly to 162 mg/dL this morning * Will increase basal and tighten correctional this morning PLAN FOR INPATIENT GLYCEMIC CONTROL: * Hold outpatient oral diabetes medications * Basal insulin - increased * Lantus 36 units SQ AM * Bolus insulin - tightened CF/CR * NovoLog per scale ACHS or Q6hrs while NPO * Goal Range: Low 110 mg/dL - High 140 mg/dL * Correction Factor: 15 mg/dL/unit * Nutritional / Prandial insulin per carb ratio of 1 unit per 5 grams CHO consumed PLAN FOR DISCHARGE: * A1c = 7.7 % on 01/15/21 * Goal A1c = 7 % based on age and comorbidities * May consider increasing glimepiride to achieve goal A1c
--- NOTE | 2021-02-08 09:53 | Discharge Summary ---
Date of Service February 08, 2021 Admission HPI Per Admitting Provider The patient is a 70-year-old male with a past medical history including lumbar disc disease, cauda equina compression, testicular cancer, lumbar radiculopathy, lumbar spinal stenosis with neurogenic claudication, GERD, hypertension, allergic rhinitis, hypothyroidism, diabetes mellitus, hyperlipidemia and gout. His most recently been admitted to [facility] from 01/17-01/25/2021 after having undergone lumbar surgery by Dr. Eckert for cauda equina compression. During that admission, he had had a Hewitt catheter placed and had then been discontinued. Patient did report today that he also began to have difficulty with urination. Admission Exam Per Admitting Provider The patient is awake, alert and oriented 3, well developed and well nourished, normocephalic and atraumatic, lying in bed and in no acute distress. HEENT--PERRL, EOMI, mucous membranes and oropharynx normal. Neck--supple. No JVD. No bruits. Thyroid normal, trachea midline, no adenopathy. Heart--normal S1 and S2. No murmurs, rubs or gallops. Lungs--clear bilaterally, no respiratory distress, no accessory muscle use. Abdomen--normal bowel sounds and soft. Nontender. Nondistended. Extremities--no cyanosis or clubbing. No edema. Dermatologic--normal skin turgor, normal color, no abnormal lymph nodes, no rash. Neurologic--cranial nerves II through XII grossly intact. Rheumatologic--normal range of motion. Psychiatric--normal affect. Principal Diagnosis Sepsis, UTI, proctocolitis Discharge Exam Constitutional well developed, well nourished, cooperative and comfortable; no acute distress Eyes + anicteric sclerae; normal pupil size ENMT external ear and nose normal, oropharynx normal Neck trachea midline, no thyromegaly Respiratory normal respiratory effort, lungs clear to auscultation Cardiovascular Rate/Rhythm: regular rate and regular rhythm Heart Sounds: + murmur (2/6 RORY RUSB) Vessels: no JVD Extremities: normal capillary refill and + pedal edema (trace pretibial pitting); no calf tenderness Gastrointestinal (Abdomen) normal bowel sounds, soft, nontender, no hepatosplenomegaly Musculoskeletal Head/Neck/Chest: normocephalic, head atraumatic and neck supple Extremities: extremities normal to inspection and + abnormal strength (4/5 in legs bilaterally, diminished sensation light touch groin/medial thig); no cyanosis, no clubbing and no petechiae Skin no rashes, warm and dry Neurologic CN's II-XI intact bilaterally, moves all extremities and awake; no focal motor deficits and not confused Speech / Cognition: normal speech Motor/Sensory: no tremor and no pronator drift Psychiatric A+Ox3, euthymic affect Genitourinary hewitt catheter draining yellow urine Lymphatic no cervical or axillary lymphadenopathy Discharge Data Allergies Allergy/AdvReac Type Severity Reaction Status Date / Time Penicillins Allergy Intermediate HIGH Verified 02/01/21 19:30 FEVER, RASH (NOTED ALLERGIC TO "ANY-CILLIN" bee pollen Allergy Unknown Unknown Verified 02/02/21 08:28 Consultations 02/01/21 19:35 ED Decision to Admit Stat Ordered Studies Chest X-Ray 02/01/21 18:43 SINGLE VIEW CHEST CLINICAL HISTORY: Sepsis. FINDINGS: An AP, portable, upright chest radiograph is compared to study dated 09/21/2016 and correlated with chest CT dated 01/23/2021. The heart is top normal for projection noting atherosclerotic calcification of the thoracic aorta. There is mild bibasilar atelectasis. No airspace consolidation or large pleural effusion is identified. No pneumothorax is seen. The bony thorax is grossly intact. Atherosclerotic calcification is noted in the right carotid bulb. IMPRESSION: No acute cardiopulmonary abnormality. ACT 112: Negative or not required by law. Electronically signed by: Morris Coburn M.D. 02/01/2021 9:06 PM Abdomen/Pelvis CT 02/03/21 08:[address] WITH IV CONTRAST CT DOSE: 1053.20 mGycm HISTORY: Acute generalized abdominal pain with sepsis Generalzied abdominal pain, diarrhea, sepsis TECHNIQUE: Multiaxial CT images of the abdomen and pelvis were performed following the IV administration of 85 cc of Optiray, A dose lowering technique was utilized adhering to the principles of ALARA. COMPARISON STUDY: Chest radiograph 05/04/2021, CTA chest 01/23/2021 FINDINGS: Clear lung bases. No pneumatosis or pneumoperitoneum. Coronary artery calcifications. Unremarkable spleen, pancreas and adrenal glands. Contracted gallbladder. Unremarkable liver. Patency of the hepatic and portal veins. 8 mm probable cyst of the inferior pole right kidney. No renal calculi or hydronephrosis. The pelvic structures are suboptimally visualized secondary to artifact from bilateral hip arthroplasties. Partially decompressed urinary bladder with wall thickening and perivesicular stranding. Air within the urinary bladder is noted with Hewitt catheter. Small fat filled left inguinal hernia. Atherosclerotic plaque of the abdominal aorta without aneurysm. No adenopathy. No bowel obstruction. There is circumferential wall thickening of the rectum and mid to distal sigmoid colon with pericolonic perirectal stranding and trace dependent free pelvic fluid. No perforation. Moderate fecal retention. Normal appendix. Tiny fat filled periumbilical hernia. Prior laminectomy with discectomy, posterior interbody beverley and screw fusion at L4-L5. IMPRESSION: 1. There is moderate wall thickening of the rectum and distal sigmoid with associated perirectal and pericolonic stranding and trace free pelvic fluid. Findings are compatible with a nonspecific proctocolitis. 2. No bowel obstruction. 3. Moderate fecal retention. 4. Additional findings as above. ACT 112: Negative or not required by law. The above report was generated using voice recognition software. It may contain grammatical, syntax or spelling errors. Electronically signed by: Amador Sullivan M.D. 02/03/2021 11:26 AM Hospital Course (1) Sepsis: Previously admitted for lumbar disc herniation/cauda equina requiring emergent surgical intervention with Dr. Eckert on 01/18 and was discharged to [facility] for rehab on 01/25. Course complicated by RLE DVT and PE and was placed on Eliquis (10mg induction and continued on 5mg BID currently) Presented from rehab with Sepsis secondary to Ecoli UTI (resistant to quinolones) +/- proctocolitis Lactate 1.8 on admission Ceftriaxone/Metronidazole while inpatient and switched to Keflex (tolerated despite PCN allergy) for total 14 days and Metronidazole for total of 7 days for colitis component Blood cultures NGTD on admission and repeat also no growth to date Patient had good experience with rehab at [facility] but not nursing care, and a rrangements were made to discharge patient to rehab in [place] (2) Acute UTI: Catheter associated Urine culture growing E. coli resistant to fluoroquinolones and Bactrim. Continue Hewitt catheter placed in the emergency room and this was discussed with Urology during hospitalization with recommendations to continue at discharge and follow up outpatient. Continued on flomax at d/c. Ceftriaxone --> Keflex for 14 day course. (3) Urinary retention: Continue Hewitt catheter. Do not remove. Discussed with urology and patient already has follow-up Continued on flomax the issue stems from cauda equina syndrome, possible neurogenic bladder --?need for st cath in future by patient. discussion at f/u Urology visit (4) Proctocolitis: Possibly source of infection therefore cover with ceftriaxone and metronidazole. Had been on large doses of colace, senna, miralax and had continued diarrhea (he states he had been going 4-5 days at home without BM and we discussed adding miralax/colace after 1-2 days to prevent recurrence) Stopped stool softeners --- DIARRHEA has slowed cdiff negative x 2 Instructed to maintain bowel regimen to prevent constipation moving forward as above (5) Diarrhea: C. difficile negative. Stool cultures negative to date. Slowing -- repeat cdiff also negative bowel regimen at d/c to maintain BM every 1-2 days to prevent constipation (6) Sinus tachycardia: during admission while on telemetry ? Suspect multifactorial with recent diagnosis of pulmonary embolism and current infection. metoprolol was increased to 50mg daily and continued at d/c No reason to suspect Apixaban failure at this time. can downgrade off tele rates 80-90s, 98% on RA (7) Cauda equina compression: Cauda equina compression/lumbar spinal stenosis with neurogenic claudication- PT/OT eval's -- cont rehab. Arranged at dieterich at above. Working with slide board and was able to transfer with monitoring on 02/07 with therapy., Feels s trength coming back and decreased numbness to LE (prior from groin below...now with just some residual decreased sensation to medial thigh/groin. Still with bowel incontinence at times) Continue [place], gabapentin Follow up with Dr. eckert outpatient (8) Spinal stenosis, lumbar region with neurogenic claudication: See above (9) Gout: No acute flare Continued allopurinol (10) Pulmonary embolus: Diagnosed 01/23/2021 Continued apixaban 5 mg p.o. twice daily (finished 10 mg induction) (11) Diabetes: Diabetes Mellitus, controlled -- Pharmacy consulted for glycemic management. Blood sugars controlled but A1c slightly above goal 7.7. To resume home mediations at d/c (utilized SSI while inpatient) but can f/u with PCP about possible increase to his glimepiride. Testicular Ca (R sided) -- dx 20 years ago, no recurrence. surgical correction and chemo/xrt [facility] set up transportation. Total Time Total Time Spent Total Time Spent (In Minutes): 70 Discharge Plan Discharge Items Patient Disposition: Transfer Inpatient Rehab Fac Reason For Visit: Sepsis, UTI Discharge Diagnosis: Sepsis, UTI, proctocolitis Goals: You have been hospitalized for an acute medical problem. During your stay at [facility], we have made an effort to correct the problem that brought you to the hospital while keeping you as comfortable as possible. Medications were used to bring your condition under control and your discharge instructions will include directions for any medications you should take after leaving the hospital. Please make sure you see your Primary Care Provider as part of your follow up plan. Activity: As commented below Activity Comment: advance with therapy at rehab Non-emergency contact: Primary Care Provider, Surgeon and Urologist Call non-emergency contact if: you have any medication questions, your symptoms worsen, your pain is not controlled and you have a fever Follow-up/Referrals: Liz Kirby DO [Primary Care Provider] - Tariq Kim DO [Physician] - (1 week) Young Eckert DO [Surgeon] - (2 weeks) Diet: Carb Consistent or DM2 and Heart Healthy Addtl Attending Provider Instructions: You have been hospitalized and found to have sepsis secondary to a urinary tract infection and proctocolitis due to constipation. You were treated with antibiotics and are being sent on the following to complete treatment: * Metronidazole -- to be taken by mouth three times daily for an additional day * Cephalexin by mouth FOUR times daily for another 8 days of treatment A Hewitt catheter was placed and you are to have this remain in and follow up with Urology. You have been sent a prescription for flomax to help with flow and this may be discussed regarding continuation vs additional medication at follow up visit. Your metoprolol was increased to 50mg daily and you should continue this dose. You should also continue a bowel regimen to ensure moving your bowels every day or so to prevent constipation. You should follow up with Dr. Eckert in the next 1-2 weeks to monitor your progress. Please follow up with Dr. Kirby in the next 1-2 weeks post-hospital discharge for follow up. You may want to consider increasing your diabetic medications to obtain better control in the future but your sugars have been acceptable while in the hospital and you can continue current regimen. Please return to the emergency department with any fever, chills, or for any other symptoms that are concerning for you. Pending Studies at Discharge: Yes Studies:: Blood cultures -- no growth to date Stand-Alone Forms: My [facility] Skilled Items Patient informed of condition?: Yes DNR: No Discharge Level of Care: Acute rehab Communicable Disease: No Discharge Prognosis: Stable Lines: None Urinary Catheter: Yes Medications and DC Order Prescriptions: New cephalexin 500 mg Capsule 500 mg PO QID 7 Days Qty: 30 RF: 0 tamsulosin 0.4 mg Capsule 0.4 mg PO HS Qty: 30 RF: 0 metoprolol succinate 50 mg Tablet Extended Release 24 Hr 50 mg PO DAILY Qty: 30 RF: 0 magnesium oxide 400 mg (241.3 mg magnesium) Tablet 400 mg PO BID Qty: 60 RF: 0 Continued [id number] [Osteo Bi-Flex Triple Strength] 750 mg-644 mg- 30 mg-1 mg tablet 1 tab PO BID RF: 0 allopurinol 300 mg tablet 300 mg PO DAILY Qty: 90 RF: 3 metformin 1,000 mg tablet 1,000 mg PO BID Qty: 180 RF: 1 glimepiride 2 mg tablet 2 mg PO DAILY Qty: 90 RF: 1 fluticasone propionate [Flonase Allergy Relief] 50 mcg/actuation spray,suspension 2 spray INTNAS DAILY PRN (Reason: Allergy Symptoms) RF: 0 famotidine 40 mg tablet 40 mg PO HS Qty: 90 RF: 1 gabapentin 300 mg capsule 300 mg PO TID Qty: 120 RF: 1 atorvastatin 40 mg tablet 40 mg PO HS RF: 0 Eliquis 5 mg tablet 5 mg PO BID RF: 0 pantoprazole 40 mg Tablet,Delayed Release (Dr/Ec) 40 mg PO DAILYBB RF: 0 levothyroxine 112 mcg Tablet 112 mcg PO DAILY RF: 0 hydrocodone-acetaminophen 7.5-325 mg tablet 1 tab PO Q6H PRN (Reason: pain scale 4-10 lumbar) RF: 0 docusate sodium 100 mg Capsule 100 mg PO BID PRN (Reason: Constipation) RF: 0 psyllium Packet 1 packet PO DAILY RF: 0 ondansetron 4 mg Tablet,Disintegrating 4 mg PO Q6H PRN (Reason: Nausea And Vomiting) RF: 0 loratadine 10 mg Tablet 10 mg PO DAILY RF: 0 polyethylene glycol 3350 [Miralax] 17 gram powder in packet 17 g PO .DAILY AT LUNCH PRN (Reason: Constipation) RF: 0 sennosides-docusate sodium [Senokot-S] 8.6-50 mg tablet 1 tab PO .DAILY AT LUNCH PRN (Reason: Constipation) RF: 0 acetaminophen 325 mg Tablet 650 mg PO Q4 PRN (Reason: Pain) RF: 0 Discontinued metoprolol succinate 25 mg Tablet Extended Release 24 Hr 25 mg PO DAILY RF: 0 Discharge Orders: Discharge Order (Routine); Ordered 02/08/21 Ordered By: Juliana Hill Admission Data Admit Date/Time: 02/01/21 20:33 Attending Provider: Santa Chavez Admit Provider: Filemon Quiroga Primary Care Provider: Liz Kirby Other Providers: Javi Mari Other Interventions: Discharge Summary Assessment (RN) Last Done: 02/08/21 10:41 Supervising Physician Co-Signing Physician Notes PA Supervision Note: I personally saw and examined the patient. I verified all constantino points and agree with RADHA Hill with the following exceptions and/or additions: S-DOing well, no concerns, ready for discharge. Denies CP/SOB. Hewitt draining. O- Vitals reviewed Gen: [AAOx3, NAD] HEENT: [anicteric sclerae, EOMI] CV: [RRR no mgr nl S1S2] Pulm: [CTAB no wcr] Abd: [+BS soft NT ND no masses or hernias] Ext: [no edema] Skin: [no rashes, warm/dry] A/P-70 yo male here with UTI, sepsis. Improved, moving bowels, no fevers, vitals stable, continue abx Coding Level of Care Code D/C Day Management >30 mins Diagnoses Sepsis A41.9 Sepsis acute organ dysfunction status: without acute organ dysfunction Sepsis type: sepsis due to unspecified organism Acute UTI N39.0 Urinary retention R33.9 Proctocolitis K52.9 Diarrhea R19.7 Sinus tachycardia R00.0 Cauda equina compression G83.4 Spinal stenosis, lumbar region with neurogenic claudication M48.062 Gout M10.9 Chronicity: chronic Gout etiology: unspecified cause Gout site: unspecified site Pulmonary embolus I26.99 Diabetes E11.9
== END 2021-02-08 12:40 ==
LOC: ED 18:29 → 2N 20:33 → SUATTDRO 20:33 → 2N 21:03 → 3N 02-05 13:36

== ENCOUNTER 2021-02-26 17:11 | Inpatient (IN) ==
[2021-02-26] MEDS ORDERED: ACETAMINOPHEN 325 MG TAB PO STA (17:26)
[2021-02-26] MEDS ORDERED: SODIUM CHLORIDE 0.9% 1000ML 2,000 ML IV ONE (17:26)
--- NOTE | 2021-02-26 17:31 | Emergency Department Note ---
Impression & Plan Sepsis, Elevated lactic acid level, Hematuria, Hypomagnesemia, Acute hyponatremia ED Provider Note NAME: JOMAR HAAS III AGE: 70 SEX: M : 1950 ARRIVES VIA: Walk-In INFORMANT: Patient ED PROVIDER(S): Houston Zapata DO CHIEF COMPLAINT: Fever and weakness HPI: Patient is a 70-year-old male who had surgery back in end of December for cauda equina. Patient was recently treated for UTI several weeks ago. Patient does straight cath. He notes he feels weak all over. He notes he normally does not have any back pain but recently over the past couple days he has been starting to get some back pain in the middle of his incision. He does notice some left-sided belly pain. No vomiting or diarrhea. He does admit to some nausea. No chest pain or shortness of breath. No headache or neck pain. He notes his skin feels hot and tender throughout his entire body. ROS: See above HPI for pertinent positives & negatives. A total of 10 systems reviewed and were otherwise negative. PAST MEDICAL HISTORY:See Below PAST SURGICAL HISTORY:See Below FAMILY HISTORY:See Below SOCIAL HISTORY:See Below HOME MEDICATIONS:See Below ALLERGIES:See Below VITALS:See Below PHYSICAL EXAMINATION: GENERAL: Sitting up in bed, alert, chronically ill-appearing, disheveled EYE EXAM: normal conjunctiva. OROPHARYNX: no exudate, no erythema, lips, buccal mucosa, and tongue normal and mucous membranes are moist NECK: supple, no nuchal rigidity, no adenopathy, non-tender LUNGS: Clear to auscultation. Normal chest wall mechanics HEART: no murmurs, S1 normal and S2 normal ABDOMEN: abdomen soft, tender in left lower quadrant, normo-active bowel sounds, no masses, no rebound or guarding. BACK: Back is symmetrical on inspection and there is no deformity, no midline tenderness, no CVA tenderness. Midline incision is clean dry and intact UPPER EXTREMITIES: upper extremities are grossly normal. LOWER EXTREMITIES: No pitting edema. NEURO EXAM: Normal sensorium, cranial nerves II-XII grossly intact, normal speech, no gross weakness of arms. Legs are weak bilaterally but nonfocal MEDICAL DECISION MAKING: Patient is a 70-year-old male with a past medical history of spinal stenosis causing cauda equina with surgery at the end of December by Dr. Eckert. He was recently admitted for UTI as he straight caths which was sensitive to Rocephin. He presents today as he is felt weaker diffusely very hot and having fevers. IV was established blood work was obtained. Labs show leukocytosis of 12,000. No significant anemia. INR was unremarkable. BMP with mild hyponatremia. LFTs bilirubin was unremarkable. Troponin was negative. Procalcitonin was 0.22. Lactate was elevated and trended down with fluids. Patient was given IV antibiotics which included Rocephin and vancomycin. Discussed the case with Dr. Eckert and if CT of the abdomen is negative he will evaluate tomorrow for further imaging first thing in the morning of the lumbar spine. CT of the abdomen pelvis and lumbar spine did show no acute pathology. Patient was updated bedside. Discussed with the hospitalist for further evaluation. Of note patient did become hypoxic with sleeping drops down to 85%. Observation Status: Indication: fever abd pain Patient with a family history of cancer, was seen first at 1720 hrs and was necessary in order to determine medical stability and avoid unnecessary admission. Upon reevaluation, 4.5 hours of observation revealed that the patient should be admitted. Disposition date and time 02/26/21 at . Triage Nursing notes reviewed. Limited review of prior medical records performed Vital Signs: reviewed and remarkable for febrile and tachycardic Differential diagnosis: Differential diagnoses includes but is not limited to gastritis, peptic ulcer disease, GERD, gallbladder disease, pancreatitis, small bowel obstruction, acute coronary syndrome, pericarditis, ischemic bowel, irritable bowel disease, irritable bowel syndrome, appendicitis, diverticulitis, malignancy, hernia, urinary tract infection, torsion, /ectopic (if female), perforation, trauma, infectious. ER treatment provided: See below Diagnostics interpreted by me: ECG: Sinus tachycardia rate of 105 Normal axis No PVCs QTC 449 Cardiac Monitoring: An order was placed for continuous cardiac monitoring. The monitor shows a rate of 102 with sinus rhythm. Laboratory studies: As stated above and show below. Imaging studies: CT the abdomen pelvis shows no acute pathology CT lumbar spine shows no acute pathology Consultation(s): Discussed with Dr. Brady Eckert who agreed with admission his CT abdomen pelvis is negative and he will evaluate him in the morning to determine further evaluation of the lumbar spine. Discussed with Radah Matthews for further evaluation Procedures: none Critical Care: None Past Med/Surg History Medical History (Updated 02/26/21 @ 21:56 by Houston Zapata DO) Allergic rhinitis Cauda equina syndrome Constipation Diabetes Dyslipidemia (high LDL; low HDL) GERD (gastroesophageal reflux disease) Gout Hx of testicular cancer Hypertension Hypothyroidism Lumbar disc disease Lumbar disc herniation with radiculopathy Lumbar pain with radiation down both legs Osteoarthritis Spinal stenosis, lumbar region with neurogenic claudication Urinary retention Surgical History Hx of lumbosacral spine surgery Hx of total hip arthroplasty S/P orchiopexy 1975 Family History Father Lung cancer Cancer brain Mother Diabetes Uncle Prostate cancer Grandmother (Paternal) Stroke Family/Other Colorectal cancer Breast cancer Myocardial infarction Grandfather (Maternal) Rheumatoid arthritis Denies family history of Ovarian cancer Social History Smoking Status: Former smoker Tobacco Type: Cigarettes Age Quit Using Tobacco: 65; packs per day: 0.5; Years Smoked: 24; Second Hand Exposure: No; Hx Alcohol Use: Yes Alcohol Intake Frequency: Monthly or Less Hx Substance Use: No Preferred Language: [place] Islander Communication Ability: Effective Visual Impairment: No Limitations Hearing Ability: Normal Collections Officer Required: No Beliefs That Will Affect Care: None marital status: Current Living Situation: Spouse and Rehab Current Living Situation Comment: Pt. has been at [facility] in [place] for past week current occupational status: retired Feels Safe at Home: Yes Childhood Exposure to Second-Hand Smoke: No Diet Comment: eats what he wants to caffeine: Yes during the past year weight has: decreased > 10 lbs Dental Care, Regularly: No Physical Activity Frequency: Other Physical Activity Frequency Comment: house chores Seatbelt Use: never Sunscreen Use: No Assistive Devices: Denture - Upper Allergies Allergies Allergy/AdvReac Type Severity Reaction Status Date / Time Penicillins Allergy Intermediate HIGH Verified 02/26/21 19:09 FEVER, RASH (NOTED ALLERGIC TO "ANY-CILLIN" bee pollen Allergy Unknown Unknown Verified 02/26/21 19:09 Home Meds Home Medications Medication Instructions Recorded Confirmed glucosamine 750 [id number] 1 tab PO BID 10/22/18 02/26/21 no1 644 mg-C 30 mg-fabio 1 mg tablet acetaminophen 650 mg PO Q4 PRN 02/01/21 02/26/21 atorvastatin 40 mg PO HS 02/01/21 02/26/21 hydrocodone-acetaminophen 1 tab PO Q6H PRN 02/01/21 02/26/21 loratadine 10 mg PO DAILY 02/01/21 02/26/21 polyethylene glycol 3350 [Miralax] 17 g PO QDL PRN 02/01/21 02/26/21 psyllium 1 packet PO DAILY 02/01/21 02/26/21 sennosides-docusate sodium 1 tab PO QDL PRN 02/01/21 02/26/21 [Senokot-S] furosemide 40 mg PO DAILY 02/26/21 02/26/21 gabapentin 300 mg PO BID 02/26/21 02/26/21 levothyroxine 100 mcg PO DAILY 02/26/21 02/26/21 omeprazole 20 mg PO DAILY 02/26/21 02/26/21 Previous Rx's Medication Instructions Recorded allopurinol 300 mg tablet 300 mg PO DAILY #90 tab 07/26/20 famotidine 40 mg tablet 40 mg PO HS #90 tab 11/15/20 metformin 1,000 mg tablet 1,000 mg PO BID #180 tab 01/10/21 glimepiride 2 mg tablet 2 mg PO DAILY #90 tab 02/07/21 magnesium oxide 400 mg PO BID #60 tab 02/08/21 metoprolol succinate 50 mg PO DAILY #30 tab 02/08/21 tamsulosin 0.4 mg PO HS #30 cap 02/08/21 Results & Data (ED) Vital Signs Vital Signs - 24 hr 02/26/21 17:12 02/26/21 18:32 Temperature 38 C H Temperature Source Oral Pulse Rate 109 H Pulse Rate [Finger] 106 H Respiratory Rate 18 24 Respiratory Effort / Characteristics Non-Labored Spontaneous Respiratory Depth Normal Respiratory Pattern Regular Blood Pressure 146/79 H Blood Pressure [Left Arm] 157/85 H Blood Pressure Mean 101 Blood Pressure Mean [Left Arm] 109 Blood Pressure Position Sitting Pulse Oximetry 93 94 Oxygen Delivery Method Room Air Room Air Sepsis Recent Fever Within 48 Hours No Sepsis New/Unexplained Change in Mental Status N/A Sepsis Action Taken by Nursing No Action Required Laboratory Data Result diagrams: 02/26/21 17:33 02/26/21 17:33 Lab Results 02/26/21 02/26/21 02/26/21 Range/Units 17:33 17:33 17:33 WBC 12.73 H (4.8-10.8) K/uL RBC 4.16 L (4.7-6.1) M/uL Hgb 13.0 L (14.0-18.0) g/dL Hct 37.2 L (42-52) % MCV 89.4 (80-100) fL MCH 31.3 (25-34) pg MCHC 34.9 (32-36) g/dL RDW Std Deviation 42.3 (36.4-46.3) fL RDW Coeff of Radha 13.0 (11.5-14.5) % Plt Count 310 (130-400) K/uL MPV 11.2 H (7.4-10.4) fL Immature Gran % (Auto) 0.2 % Neut % (Auto) 78.7 % Lymph % (Auto) 13.7 % [place] % (Auto) 6.4 % Eos % (Auto) 0.5 % Baso % (Auto) 0.5 % Neut # (Auto) 10.01 H (1.4-6.5) K/uL Lymph # (Auto) 1.75 (1.2-3.4) K/uL [place] # (Auto) 0.81 H (0.11-0.59) K/uL Eos # (Auto) 0.07 (0-0.5) K/uL Baso # (Auto) 0.06 (0-0.2) K/uL Immature Gran # (Auto) 0.03 H (0.00-0.02) K/uL PT 10.5 (9.0-12.0) Seconds INR 1.0 (0.9-1.1) APTT 24.4 (21.0-31.0) Seconds PTT Ratio 0.9 Sodium 132 L (136-145) mmol/L Potassium 3.7 (3.5-5.1) mmol/L Chloride 93 L (98-107) mmol/L Carbon Dioxide 33 H (21-32) mmol/L Anion Gap 6.0 (3-11) BUN 11 (7-18) mg/dl Creatinine 0.91 (0.6-1.4) mg/dl Est Cr Clr Drug Dosing Not Reportable Est GFR ( Amer) 99.3 ml/min Est GFR (Non-Af Amer) 85.7 ml/min BUN/Creatinine Ratio 11.6 (10-20) Glucose 144 H (70-99) mg/dl Lactate (0.4-2.0) mmol/L Calcium 9.2 (8.5-10.1) mg/dl Magnesium 1.5 L (1.8-2.4) mg/dl Total Bilirubin 0.5 (0.2-1) mg/dl AST 12 L (15-37) U/L ALT 21 (12-78) U/L Alkaline Phosphatase 73 (45-117) U/L Troponin I < 0.015 (0-0.045) ng/ml Total Protein 7.7 (6.4-8.2) gm/dl Albumin 3.3 L (3.4-5.0) gm/dl Globulin 4.4 H (2.5-4.0) gm/dl Albumin/Globulin Ratio 0.7 L (0.9-2) Procalcitonin (0-0.5) ng/ml Urine Color Urine Appearance (Clear) Urine pH (4.5-7.5) Ur Specific [place] (1.000-1.030) Urine Protein (Negative) Urine Glucose (UA) (Negative) Urine Ketones (Negative) Urine Blood (Negative) Urine Nitrite (Negative) Urine Bilirubin (Negative) Urine Urobilinogen (Negative) Ur Leukocyte Esterase (Negative) Urine WBC (Auto) (0-5) /hpf Urine RBC (Auto) (0-4) /hpf U Hyaline Cast (Auto) (0-5) /lpf U Epithel Cells (Auto) (0-5) /lpf Urine Bacteria (Auto) (Negative) COVID-19 Eval Order SARS-CoV-2 (PCR) (Negative) 02/26/21 02/26/21 02/26/21 Range/Units 17:33 18:35 18:36 WBC (4.8-10.8) K/uL RBC (4.7-6.1) M/uL Hgb (14.0-18.0) g/dL Hct (42-52) % MCV (80-100) fL MCH (25-34) pg MCHC (32-36) g/dL RDW Std Deviation (36.4-46.3) fL RDW Coeff of Radha (11.5-14.5) % Plt Count (130-400) K/uL MPV (7.4-10.4) fL Immature Gran % (Auto) % Neut % (Auto) % Lymph % (Auto) % [place] % (Auto) % Eos % (Auto) % Baso % (Auto) % Neut # (Auto) (1.4-6.5) K/uL Lymph # (Auto) (1.2-3.4) K/uL [place] # (Auto) (0.11-0.59) K/uL Eos # (Auto) (0-0.5) K/uL Baso # (Auto) (0-0.2) K/uL Immature Gran # (Auto) (0.00-0.02) K/uL PT (9.0-12.0) Seconds INR (0.9-1.1) APTT (21.0-31.0) Seconds PTT Ratio Sodium (136-145) mmol/L Potassium (3.5-5.1) mmol/L Chloride (98-107) mmol/L Carbon Dioxide (21-32) mmol/L Anion Gap (3-11) BUN (7-18) mg/dl Creatinine (0.6-1.4) mg/dl Est Cr Clr Drug Dosing Est GFR ( Amer) ml/min Est GFR (Non-Af Amer) ml/min BUN/Creatinine Ratio (10-20) Glucose (70-99) mg/dl Lactate 2.3 H* (0.4-2.0) mmol/L Calcium (8.5-10.1) mg/dl Magnesium (1.8-2.4) mg/dl Total Bilirubin (0.2-1) mg/dl AST (15-37) U/L ALT (12-78) U/L Alkaline Phosphatase (45-117) U/L Troponin I (0-0.045) ng/ml Total Protein (6.4-8.2) gm/dl Albumin (3.4-5.0) gm/dl Globulin (2.5-4.0) gm/dl Albumin/Globulin Ratio (0.9-2) Procalcitonin 0.22 (0-0.5) ng/ml Urine Color Urine Appearance (Clear) Urine pH (4.5-7.5) Ur Specific [place] (1.000-1.030) Urine Protein (Negative) Urine Glucose (UA) (Negative) Urine Ketones (Negative) Urine Blood (Negative) Urine Nitrite (Negative) Urine Bilirubin (Negative) Urine Urobilinogen (Negative) Ur Leukocyte Esterase (Negative) Urine WBC (Auto) (0-5) /hpf Urine RBC (Auto) (0-4) /hpf U Hyaline Cast (Auto) (0-5) /lpf U Epithel Cells (Auto) (0-5) /lpf Urine Bacteria (Auto) (Negative) COVID-19 Eval Order Covid19 at [facility] SARS-CoV-2 (PCR) (Negative) 02/26/21 02/26/21 02/26/21 Range/Units 18:36 18:36 19:40 WBC (4.8-10.8) K/uL RBC (4.7-6.1) M/uL Hgb (14.0-18.0) g/dL Hct (42-52) % MCV (80-100) fL MCH (25-34) pg MCHC (32-36) g/dL RDW Std Deviation (36.4-46.3) fL RDW Coeff of Radha (11.5-14.5) % Plt Count (130-400) K/uL MPV (7.4-10.4) fL Immature Gran % (Auto) % Neut % (Auto) % Lymph % (Auto) % [place] % (Auto) % Eos % (Auto) % Baso % (Auto) % Neut # (Auto) (1.4-6.5) K/uL Lymph # (Auto) (1.2-3.4) K/uL [place] # (Auto) (0.11-0.59) K/uL Eos # (Auto) (0-0.5) K/uL Baso # (Auto) (0-0.2) K/uL Immature Gran # (Auto) (0.00-0.02) K/uL PT (9.0-12.0) Seconds INR (0.9-1.1) APTT (21.0-31.0) Seconds PTT Ratio Sodium (136-145) mmol/L Potassium (3.5-5.1) mmol/L Chloride (98-107) mmol/L Carbon Dioxide (21-32) mmol/L Anion Gap (3-11) BUN (7-18) mg/dl Creatinine (0.6-1.4) mg/dl Est Cr Clr Drug Dosing Est GFR ( Amer) ml/min Est GFR (Non-Af Amer) ml/min BUN/Creatinine Ratio (10-20) Glucose (70-99) mg/dl Lactate 1.1 (0.4-2.0) mmol/L Calcium (8.5-10.1) mg/dl Magnesium (1.8-2.4) mg/dl Total Bilirubin (0.2-1) mg/dl AST (15-37) U/L ALT (12-78) U/L Alkaline Phosphatase (45-117) U/L Troponin I (0-0.045) ng/ml Total Protein (6.4-8.2) gm/dl Albumin (3.4-5.0) gm/dl Globulin (2.5-4.0) gm/dl Albumin/Globulin Ratio (0.9-2) Procalcitonin (0-0.5) ng/ml Urine Color Yellow Urine Appearance Clear (Clear) Urine pH 5.0 (4.5-7.5) Ur Specific [place] 1.011 (1.000-1.030) Urine Protein Negative (Negative) Urine Glucose (UA) Negative (Negative) Urine Ketones Negative (Negative) Urine Blood 1+ H (Negative) Urine Nitrite Negative (Negative) Urine Bilirubin Negative (Negative) Urine Urobilinogen Negative (Negative) Ur Leukocyte Esterase Negative (Negative) Urine WBC (Auto) 1-5 (0-5) /hpf Urine RBC (Auto) 0-4 (0-4) /hpf U Hyaline Cast (Auto) 0 (0-5) /lpf U Epithel Cells (Auto) 0-5 (0-5) /lpf Urine Bacteria (Auto) Negative (Negative) COVID-19 Eval Order SARS-CoV-2 (PCR) NEGATIVE (Negative) Administered Medications Discontinued Medications Acetaminophen (Acetaminophen 325 Mg Tab) 650 mg PO NOW STA Stop: 02/26/21 17:27 Last Admin: 02/26/21 18:16 Dose: 650 mg Documented by: [id number] Sodium Chloride (Nss 1000ml) 2,000 mls @ 999 mls/hr IV .Q2H1M ONE Stop: 02/26/21 19:26 Last Admin: 02/26/21 18:15 Dose: 999 mls/hr Documented by: [id number] Ceftriaxone Sodium (Rocephin) 1,000 mg in 50 mls @ 100 mls/hr IV NOW STA Stop: 02/26/21 18:01 Last Infusion: 02/26/21 18:30 Dose: 0 mls/hr Documented by: [id number] Admin: 02/26/21 18:16 Dose: 100 mls/hr Documented by: [id number] Ioversol (Optiray 320 100ml) 94 ml IV ONCE ONE Stop: 02/26/21 19:55 Last Admin: 02/26/21 19:55 Dose: 94 ml Documented by: [id number] Imaging Data Radiologist's Impression: Chest X-Ray 02/26/21 17:26 XR chest 1V portable CLINICAL HISTORY: SEPSIS COMPARISON STUDY: Chest radiograph February 01, 2021. FINDINGS: Lung volumes are normal. Lungs are clear. There is no pneumothorax or pleural effusion. Cardiac size is normal. Mediastinal contours are normal. There is no evidence for pulmonary edema. Minimal right midlung opacity favors atelectasis or pulmonary vessels. IMPRESSION: No acute cardiopulmonary findings. ACT 112: Negative or not required by law. Electronically signed by: Kevin Del Angel M.D. 02/26/2021 7:42 PM Discharge Plan Visit Data Chief Complaint: Fever Stated Complaint: 102.4 TEMP POSS INFECTION ED Provider: Houston Zapata Discharge Problem: Sepsis, Elevated lactic acid level, Hematuria, Hypomagnesemia, Acute hypon atremia Forms Stand Alone Forms: My [facility] [employer] Prescriptions Prescriptions: No Action [id number] [Osteo Bi-Flex Triple Strength] 750 mg-644 mg- 30 mg-1 mg tablet 1 tab PO BID RF: 0 allopurinol 300 mg tablet 300 mg PO DAILY Qty: 90 RF: 3 metformin 1,000 mg tablet 1,000 mg PO BID Qty: 180 RF: 1 glimepiride 2 mg tablet 2 mg PO DAILY Qty: 90 RF: 1 famotidine 40 mg tablet 40 mg PO HS Qty: 90 RF: 1 atorvastatin 40 mg tablet 40 mg PO HS RF: 0 hydrocodone-acetaminophen 7.5-325 mg tablet 1 tab PO Q6H PRN (Reason: pain scale 4-10 lumbar) RF: 0 psyllium Packet 1 packet PO DAILY RF: 0 loratadine 10 mg Tablet 10 mg PO DAILY RF: 0 polyethylene glycol 3350 [Miralax] 17 gram powder in packet 17 g PO QDL PRN (Reason: Constipation) RF: 0 sennosides-docusate sodium [Senokot-S] 8.6-50 mg tablet 1 tab PO QDL PRN (Reason: Constipation) RF: 0 acetaminophen 325 mg Tablet 650 mg PO Q4 PRN (Reason: Pain) RF: 0 tamsulosin 0.4 mg Capsule 0.4 mg PO HS Qty: 30 RF: 0 metoprolol succinate 50 mg Tablet Extended Release 24 Hr 50 mg PO DAILY Qty: 30 RF: 0 magnesium oxide 400 mg (241.3 mg magnesium) Tablet 400 mg PO BID Qty: 60 RF: 0 furosemide 40 mg tablet 40 mg PO DAILY RF: 0 levothyroxine 100 mcg tablet 100 mcg PO DAILY RF: 0 omeprazole 20 mg capsule,delayed release(DR/EC) 20 mg PO DAILY RF: 0 gabapentin 300 mg capsule 300 mg PO BID RF: 0 Discharge Problem: Sepsis Qualifiers: Sepsis type: sepsis due to unspecified organism Sepsis acute organ dysfunction status: unspecified Qualified Code(s): A41.9 - Sepsis, unspecified organism Hematuria Qualifiers: Hematuria type: unspecified type Qualified Code(s): R31.9 - Hematuria, unspecified
[2021-02-26] MEDS ORDERED: cefTRIAXone SODIUM 1,000 MG/50 ML BAG IV STA (17:32)
[2021-02-26 17:47] LABS: Basophils # (auto) 0.06 K/uL (0-0.2); Basophils % (auto) 0.5 %; Eosinophils # (auto) 0.07 K/uL (0-0.5); Eosinophils % (auto) 0.5 %; Hematocrit (blood only) 37.2 % (42-52); Immature Granulocytes # (auto) 0.03 K/uL (0.00-0.02); Immature Granulocytes % (auto) 0.2 %; Lymphocytes # (auto) 1.75 K/uL (1.2-3.4); Lymphocytes % (auto) 13.7 %; Mean Corpuscular Hemoglobin 31.3 pg (25-34); Mean Corpuscular Hgb Conc 34.9 g/dL (32-36); Mean Corpuscular Volume 89.4 fL (80-100); Mean Platelet Volume 11.2 fL (7.4-10.4); Monocytes # (auto) 0.81 K/uL (0.11-0.59); Monocytes % (auto) 6.4 %; Neutrophils # (auto) 10.01 K/uL (1.4-6.5); Neutrophils % (auto) 78.7 %; Platelet Count 310 K/uL (130-400); RDW Standard Deviation 42.3 fL (36.4-46.3); Red Blood Count 4.16 M/uL (4.7-6.1); White Blood Count 12.73 K/uL (4.8-10.8)
[2021-02-26 18:00] LABS: Partial Thromboplastin Ratio 0.9; Partial Thromboplastin Time 24.4 Seconds (21.0-31.0); Prothrombin Time 10.5 Seconds (9.0-12.0)
[2021-02-26 18:04] LABS: Alanine Aminotransferase 21 U/L (12-78); Albumin Level 3.3 gm/dl (3.4-5.0); Aspartate Aminotransferase 12 U/L (15-37); BUN Creatinine Ratio 11.6 (10-20); Blood Urea Nitrogen 11 mg/dl (7-18); Calcium 9.2 mg/dl (8.5-10.1); Carbon Dioxide 33 mmol/L (21-32); Chloride 93 mmol/L (98-107); Est GFR (African American) 99.3 ml/min; Est GFR (Non-African American) 85.7 ml/min; Glucose 144 mg/dl (70-99); Magnesium 1.5 mg/dl (1.8-2.4); Potassium 3.7 mmol/L (3.5-5.1); Sodium 132 mmol/L (136-145)
[2021-02-26 18:09] LABS: Albumin Globulin Ratio 0.7 (0.9-2); Alkaline Phosphatase 73 U/L (45-117); Bilirubin,Total 0.5 mg/dl (0.2-1); Globulin 4.4 gm/dl (2.5-4.0); Total Protein 7.7 gm/dl (6.4-8.2); Troponin I < 0.015 ng/ml (0-0.045)
[2021-02-26 18:55] LABS: Appearance Urine Clear (Clear); Bacteria Urine Automated Negative (Negative); Bilirubin Urine Negative (Negative); Blood Urine 1+ (Negative); Cast Urine Automated 0 /lpf (0-5); Color Urine Yellow; Epithelial Cell Urine Auto 0-5 /lpf (0-5); Glucose Urine UA Negative (Negative); Ketones Urine Negative (Negative); Leukocyte Esterase Urine Negative (Negative); Nitrite Urine Negative (Negative); Protein Urine Negative (Negative); RBC Urine Automated 0-4 /hpf (0-4); Specific Gravity Urine 1.011 (1.000-1.030); Urobilinogen Urine Negative (Negative)
--- NOTE | 2021-02-26 19:43 | XRay Report ---
XR chest 1V portable CLINICAL HISTORY: SEPSIS COMPARISON STUDY: Chest radiograph February 01, 2021. FINDINGS: Lung volumes are normal. Lungs are clear. There is no pneumothorax or pleural effusion. Car diac size is normal. Mediastinal contours are normal. There is no evidence for pulmonary edema. Minim al right midlung opacity favors atelectasis or pulmonary vessels. IMPRESSION: No acute cardiopulmonary findings. ACT 112: Negative or not required by law. Electronically signed by: Kevin Del Angel M.D. 02/26/2021 7:42 PM
[2021-02-26] MEDS ORDERED: OPTIRAY 320 100ml IV ONE (19:54)
[2021-02-26] MEDS ORDERED: VANCOMYCIN CONSULT ACTIVE PRN (21:48)
[2021-02-26] MEDS ORDERED: VANCOMYCIN HCL 2,000 MG in SODIUM CHLORIDE 0.9% 500 ML IV ONE (21:48)
--- NOTE | 2021-02-26 22:47 | History & Physical Report ---
Date of Service February 26, 2021 Assessment & Plan (1) Sepsis: Frederic Camejo III is a 70-year-old male with past medical history significant for diabetes, dyslipidemia, constipation, gout, spinal stenosis with neurogenic claudication, status post lumbar decompression/fusion for cauda equina syndrome (December); who presents to the emergency room with concerns for progressive weakness, fatigue, and back pain. Sepsis: -Febrile on admission, with mild leukocytosis, elevated lactate, tachycardia, and new oxygen requirement -Lactate downtrending following administration of IV fluids (2.3 -> 1.1) -Procalcitonin 0.22 on admission -In ED received Rocephin and was initiated on vancomycin given recent surgical history -No apparent signs of infection on external examination of lower back -We will need further evaluation of recent surgical site given recent instrumentation -Continue vancomycin and Rocephin at this time Spinal stenosis: -Status post lumbar decompression in December with Dr. Eckert -Ortho consulted given apparent infectious concerns upon admission Urinary retention: -Chronic history of self-catheterization with recent history of urinary tract infections likely due to self catheterizations -No urinary symptoms at this time -Urinalysis unimpressive on admission -Continue to straight cath with bladder scan greater than 400 mL Diabetes: -Hold home oral regimen -BSGs ACHS -Sliding scale insulin initiated Hypomagnesemia: -On chronic supportive magnesium supplementation -Magnesium on admission of 1.5 -Repleted with 2 g IV mag sulfate -Continue home oral supplementation -Continue to monitor and replete as indicated Constipation: -CT lumbar spine incidentally noticed impressive stool burden -Scheduled MiraLAX and senna daily -MiraLAX and senna PRN Diet: Carb consistent CODE STATUS: Conditional code (no invasive airway or mechanical ventilation) (2) Spinal stenosis, lumbar region with neurogenic claudication: (3) Urinary retention: (4) Hypomagnesemia: (5) Constipation: (6) Diabetes: History of Present Illness Primary Care Provider: Liz Kirby DO Frederic Camejo III is a 70-year-old male with past medical history significant for diabetes, dyslipidemia, constipation, gout, spinal stenosis with neurogenic claudication, status post lumbar decompression/fusion for cauda equina syndrome (December); who presents to the emergency room with concerns for progressive weakness, fatigue, and back pain. Of note patient was recently discharged from rehab on Saturday (02/18), where he had noted considerable improvement in his strength and functionality following that stay. Noted that over the last 2 to 3 days he has had increasing concerns for sharp shooting pains from his lower back down into his leg as well as concerns for weakness of his legs, and general feeling of difficulty with moving even with utilization of his walker. Over this time he has also noticed that he has been feeling diffusely warm, and his noted that while they had not directly taking his temperature he had seemed warmer. In the ED he initially had a temperature of 38C with mild leukocytosis and elevated lactate. Case was discussed with Dr. Eckert prior to admission by ED provider, and indicated holding off on further imaging of lumbar spine until he was able to evaluate in AM. Patient denies numbness/tingling in groin, inability to move legs, denies issues with incontinence, abdominal nausea, vomiting. Endorses continued need to self catheterize over the last week, as well as new onset constipation starting on Saturday. Denies any use of narcotic medications throughout this time, PDMP reflects no recent narcotic prescriptions. Allergies Allergy/AdvReac Type Severity Reaction Status Date / Time Penicillins Allergy Intermediate HIGH Verified 02/26/21 19:09 FEVER, RASH (NOTED ALLERGIC TO "ANY-CILLIN" bee pollen Allergy Unknown Unknown Verified 02/26/21 19:09 Home Medications Medication Instructions Recorded Confirmed Type glucosamine 750 [id number] 1 tab PO BID 10/22/18 02/26/21 History no1 644 mg-C 30 mg-fabio 1 mg tablet allopurinol 300 mg tablet 300 mg PO DAILY #90 tab 07/26/20 02/26/21 Rx famotidine 40 mg tablet 40 mg PO HS #90 tab 11/15/20 02/26/21 Rx metformin 1,000 mg tablet 1,000 mg PO BID #180 tab 01/10/21 02/26/21 Rx acetaminophen 650 mg PO Q4 PRN 02/01/21 02/26/21 History atorvastatin 40 mg PO HS 02/01/21 02/26/21 History hydrocodone-acetaminophen 1 tab PO Q6H PRN 02/01/21 02/26/21 History loratadine 10 mg PO DAILY 02/01/21 02/26/21 History polyethylene glycol 3350 [Miralax] 17 g PO QDL PRN 02/01/21 02/26/21 History psyllium 1 packet PO DAILY 02/01/21 02/26/21 History sennosides-docusate sodium 1 tab PO QDL PRN 02/01/21 02/26/21 History [Senokot-S] glimepiride 2 mg tablet 2 mg PO DAILY #90 tab 02/07/21 02/26/21 Rx magnesium oxide 400 mg PO BID #60 tab 02/08/21 02/26/21 Rx metoprolol succinate 50 mg PO DAILY #30 tab 02/08/21 02/26/21 Rx tamsulosin 0.4 mg PO HS #30 cap 02/08/21 02/26/21 Rx furosemide 40 mg PO DAILY 02/26/21 02/26/21 History gabapentin 300 mg PO BID 02/26/21 02/26/21 History levothyroxine 100 mcg PO DAILY 02/26/21 02/26/21 History omeprazole 20 mg PO DAILY 02/26/21 02/26/21 History Past Med/Surg History Medical History Allergic rhinitis Cauda equina syndrome Constipation Diabetes Dyslipidemia (high LDL; low HDL) GERD (gastroesophageal reflux disease) Gout Hx of testicular cancer Hypertension Hypothyroidism Lumbar disc disease Lumbar disc herniation with radiculopathy Lumbar pain with radiation down both legs Osteoarthritis Spinal stenosis, lumbar region with neurogenic claudication Urinary retention Surgical History Hx of lumbosacral spine surgery Hx of total hip arthroplasty S/P orchiopexy Family History Father Lung cancer Cancer brain Mother Diabetes Uncle Prostate cancer Grandmother (Paternal) Stroke Family/Other Colorectal cancer Breast cancer Myocardial infarction Grandfather (Maternal) Rheumatoid arthritis Denies family history of Ovarian cancer Social History Smoking Status: Light tobacco smoker Tobacco Type: Cigarettes Age Quit Using Tobacco: 65; packs per day: 0.5; Years Smoked: 24; Cigarettes Per Day: just a few per week; Second Hand Exposure: No; Hx Alcohol Use: No Hx Substance Use: No Preferred Language: Ukrainian Communication Ability: Effective Visual Impairment: No Limitations Hearing Ability: Normal 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 has been at [facility] in [place] for past week current occupational status: retired Other Information That Helps Us Care for You: No Feels Safe at Home: Yes Safety Concerns: Feels Safe At This Time Childhood Exposure to Second-Hand Smoke: No Diet Comment: eats what he wants to caffeine: Yes during the past year weight has: decreased > 10 lbs Dental Care, Regularly: No Physical Activity Frequency: Other Physical Activity Frequency Comment: house chores Seatbelt Use: never Sunscreen Use: No Assistive Devices: Walker Assistive Devices Comment: bedside commode, shower chair Review of Systems Review of Systems: All systems reviewed & are unremarkable except as noted in HPI & below Physical Exam Constitutional: WD/WN, vitals as above Eyes: PERRL, conjunctivae normal, anicteric sclerae Respiratory: normal respiratory effort, lungs clear to auscultation Auscultation: no crackles, no rales, no rhonchi and no wheezes Cardiovascular: Rate/Rhythm: regular rate and regular rhythm Heart Sounds: no gallop, no murmur and no cardiac rub Vessels: normal peripheral pulses; no JVD Extremities: no edema Gastrointestinal (Abdomen): Inspection/Auscultation: normal bowel sounds; abdomen not distended Percussion/Palpation: abdomen soft; abdomen nontender and no guarding Musculoskeletal: no cyanosis or clubbing, extremities motor strength 5/5 Skin: no rashes, warm and dry Neurologic: deep tendon reflexes 2+ bilaterally, plantar reflexes intact bilaterally, moves all extremities and awake; + abnormal sensation to monofilament (Decreased sensation over lateral plantar nerve distribution) and no focal motor deficits Psychiatric: Orientation: alert and oriented x 3 Results & Data Results & Data ([facility]) Vital Signs (Past 12 Hours) Vital Signs Temp Pulse Pulse Resp BP BP Pulse Ox 02/26/21 21:22 18 98 02/26/21 21:21 37.2 C 84 22 80 L 02/26/21 21:00 96 H 20 148/91 H 88 L 02/26/21 20:30 103 H 19 160/72 H 96 02/26/21 19:30 99 H 24 123/72 94 06/06/21 19:00 100 H 25 H 133/75 90 02/26/21 18:32 106 H 24 157/85 H 94 02/26/21 17:12 38 C H 109 H 18 146/79 H 93 Laboratory Results 02/27/21 02/26/21 02/26/21 Range/Units 00:09 19:40 18:36 WBC (4.8-10.8) K/uL RBC (4.7-6.1) M/uL Hgb (14.0-18.0) g/dL Hct (42-52) % MCV (80-100) fL MCH (25-34) pg MCHC (32-36) g/dL RDW Std Deviation (36.4-46.3) fL RDW Coeff of Radha (11.5-14.5) % Plt Count (130-400) K/uL MPV (7.4-10.4) fL Immature Gran % (Auto) % Neut % (Auto) % Lymph % (Auto) % [place] % (Auto) % Eos % (Auto) % Baso % (Auto) % Neut # (Auto) (1.4-6.5) K/uL Lymph # (Auto) (1.2-3.4) K/uL [place] # (Auto) (0.11-0.59) K/uL Eos # (Auto) (0-0.5) K/uL Baso # (Auto) (0-0.2) K/uL Immature Gran # (Auto) (0.00-0.02) K/uL PT (9.0-12.0) Seconds INR (0.9-1.1) APTT (21.0-31.0) Seconds PTT Ratio Sodium (136-145) mmol/L Potassium (3.5-5.1) mmol/L Chloride (98-107) mmol/L Carbon Dioxide (21-32) mmol/L Anion Gap (3-11) BUN (7-18) mg/dl Creatinine (0.6-1.4) mg/dl Est Cr Clr Drug Dosing Est GFR ( Amer) ml/min Est GFR (Non-Af Amer) ml/min BUN/Creatinine Ratio (10-20) Glucose (70-99) mg/dl POC Glucose 169 H (70-99) mg/dl Lactate 1.1 (0.4-2.0) mmol/L Calcium (8.5-10.1) mg/dl Magnesium (1.8-2.4) mg/dl Total Bilirubin (0.2-1) mg/dl AST (15-37) U/L ALT (12-78) U/L Alkaline Phosphatase (45-117) U/L Troponin I (0-0.045) ng/ml Total Protein (6.4-8.2) gm/dl Albumin (3.4-5.0) gm/dl Globulin (2.5-4.0) gm/dl Albumin/Globulin Ratio (0.9-2) Procalcitonin (0-0.5) ng/ml Urine Color Urine Appearance (Clear) Urine pH (4.5-7.5) Ur Specific [place] (1.000-1.030) Urine Protein (Negative) Urine Glucose (UA) (Negative) Urine Ketones (Negative) Urine Blood (Negative) Urine Nitrite (Negative) Urine Bilirubin (Negative) Urine Urobilinogen (Negative) Ur Leukocyte Esterase (Negative) Urine WBC (Auto) (0-5) /hpf Urine RBC (Auto) (0-4) /hpf U Hyaline Cast (Auto) (0-5) /lpf U Epithel Cells (Auto) (0-5) /lpf Urine Bacteria (Auto) (Negative) COVID-19 Eval Order SARS-CoV-2 (PCR) NEGATIVE (Negative) 02/26/21 02/26/21 02/26/21 Range/Units 18:36 18:36 18:35 WBC (4.8-10.8) K/uL RBC (4.7-6.1) M/uL Hgb (14.0-18.0) g/dL Hct (42-52) % MCV (80-100) fL MCH (25-34) pg MCHC (32-36) g/dL RDW Std Deviation (36.4-46.3) fL RDW Coeff of Radha (11.5-14.5) % Plt Count (130-400) K/uL MPV (7.4-10.4) fL Immature Gran % (Auto) % Neut % (Auto) % Lymph % (Auto) % [place] % (Auto) % Eos % (Auto) % Baso % (Auto) % Neut # (Auto) (1.4-6.5) K/uL Lymph # (Auto) (1.2-3.4) K/uL [place] # (Auto) (0.11-0.59) K/uL Eos # (Auto) (0-0.5) K/uL Baso # (Auto) (0-0.2) K/uL Immature Gran # (Auto) (0.00-0.02) K/uL PT (9.0-12.0) Seconds INR (0.9-1.1) APTT (21.0-31.0) Seconds PTT Ratio Sodium (136-145) mmol/L Potassium (3.5-5.1) mmol/L Chloride (98-107) mmol/L Carbon Dioxide (21-32) mmol/L Anion Gap (3-11) BUN (7-18) mg/dl Creatinine (0.6-1.4) mg/dl Est Cr Clr Drug Dosing Est GFR ( Amer) ml/min Est GFR (Non-Af Amer) ml/min BUN/Creatinine Ratio (10-20) Glucose (70-99) mg/dl POC Glucose (70-99) mg/dl Lactate (0.4-2.0) mmol/L Calcium (8.5-10.1) mg/dl Magnesium (1.8-2.4) mg/dl Total Bilirubin (0.2-1) mg/dl AST (15-37) U/L ALT (12-78) U/L Alkaline Phosphatase (45-117) U/L Troponin I (0-0.045) ng/ml Total Protein (6.4-8.2) gm/dl Albumin (3.4-5.0) gm/dl Globulin (2.5-4.0) gm/dl Albumin/Globulin Ratio (0.9-2) Procalcitonin 0.22 (0-0.5) ng/ml Urine Color Yellow Urine Appearance Clear (Clear) Urine pH 5.0 (4.5-7.5) Ur Specific [place] 1.011 (1.000-1.030) Urine Protein Negative (Negative) Urine Glucose (UA) Negative (Negative) Urine Ketones Negative (Negative) Urine Blood 1+ H (Negative) Urine Nitrite Negative (Negative) Urine Bilirubin Negative (Negative) Urine Urobilinogen Negative (Negative) Ur Leukocyte Esterase Negative (Negative) Urine WBC (Auto) 1-5 (0-5) /hpf Urine RBC (Auto) 0-4 (0-4) /hpf U Hyaline Cast (Auto) 0 (0-5) /lpf U Epithel Cells (Auto) 0-5 (0-5) /lpf Urine Bacteria (Auto) Negative (Negative) COVID-19 Eval Order Covid19 at [facility] SARS-CoV-2 (PCR) (Negative) 02/26/21 02/26/21 02/26/21 Range/Units 17:33 17:33 17:33 WBC (4.8-10.8) K/uL RBC (4.7-6.1) M/uL Hgb (14.0-18.0) g/dL Hct (42-52) % MCV (80-100) fL MCH (25-34) pg MCHC (32-36) g/dL RDW Std Deviation (36.4-46.3) fL RDW Coeff of Radha (11.5-14.5) % Plt Count (130-400) K/uL MPV (7.4-10.4) fL Immature Gran % (Auto) % Neut % (Auto) % Lymph % (Auto) % [place] % (Auto) % Eos % (Auto) % Baso % (Auto) % Neut # (Auto) (1.4-6.5) K/uL Lymph # (Auto) (1.2-3.4) K/uL [place] # (Auto) (0.11-0.59) K/uL Eos # (Auto) (0-0.5) K/uL Baso # (Auto) (0-0.2) K/uL Immature Gran # (Auto) (0.00-0.02) K/uL PT 10.5 (9.0-12.0) Seconds INR 1.0 (0.9-1.1) APTT 24.4 (21.0-31.0) Seconds PTT Ratio 0.9 Sodium 132 L (136-145) mmol/L Potassium 3.7 (3.5-5.1) mmol/L Chloride 93 L (98-107) mmol/L Carbon Dioxide 33 H (21-32) mmol/L Anion Gap 6.0 (3-11) BUN 11 (7-18) mg/dl Creatinine 0.91 (0.6-1.4) mg/dl Est Cr Clr Drug Dosing Not Reportable Est GFR ( Amer) 99.3 ml/min Est GFR (Non-Af Amer) 85.7 ml/min BUN/Creatinine Ratio 11.6 (10-20) Glucose 144 H (70-99) mg/dl POC Glucose (70-99) mg/dl Lactate 2.3 H* (0.4-2.0) mmol/L Calcium 9.2 (8.5-10.1) mg/dl Magnesium 1.5 L (1.8-2.4) mg/dl Total Bilirubin 0.5 (0.2-1) mg/dl AST 12 L (15-37) U/L ALT 21 (12-78) U/L Alkaline Phosphatase 73 (45-117) U/L Troponin I < 0.015 (0-0.045) ng/ml Total Protein 7.7 (6.4-8.2) gm/dl Albumin 3.3 L (3.4-5.0) gm/dl Globulin 4.4 H (2.5-4.0) gm/dl Albumin/Globulin Ratio 0.7 L (0.9-2) Procalcitonin (0-0.5) ng/ml Urine Color Urine Appearance (Clear) Urine pH (4.5-7.5) Ur Specific [place] (1.000-1.030) Urine Protein (Negative) Urine Glucose (UA) (Negative) Urine Ketones (Negative) Urine Blood (Negative) Urine Nitrite (Negative) Urine Bilirubin (Negative) Urine Urobilinogen (Negative) Ur Leukocyte Esterase (Negative) Urine WBC (Auto) (0-5) /hpf Urine RBC (Auto) (0-4) /hpf U Hyaline Cast (Auto) (0-5) /lpf U Epithel Cells (Auto) (0-5) /lpf Urine Bacteria (Auto) (Negative) COVID-19 Eval Order SARS-CoV-2 (PCR) (Negative) 02/26/21 Range/Units 17:33 WBC 12.73 H (4.8-10.8) K/uL RBC 4.16 L (4.7-6.1) M/uL Hgb 13.0 L (14.0-18.0) g/dL Hct 37.2 L (42-52) % MCV 89.4 (80-100) fL MCH 31.3 (25-34) pg MCHC 34.9 (32-36) g/dL RDW Std Deviation 42.3 (36.4-46.3) fL RDW Coeff of Radha 13.0 (11.5-14.5) % Plt Count 310 (130-400) K/uL MPV 11.2 H (7.4-10.4) fL Immature Gran % (Auto) 0.2 % Neut % (Auto) 78.7 % Lymph % (Auto) 13.7 % [place] % (Auto) 6.4 % Eos % (Auto) 0.5 % Baso % (Auto) 0.5 % Neut # (Auto) 10.01 H (1.4-6.5) K/uL Lymph # (Auto) 1.75 (1.2-3.4) K/uL [place] # (Auto) 0.81 H (0.11-0.59) K/uL Eos # (Auto) 0.07 (0-0.5) K/uL Baso # (Auto) 0.06 (0-0.2) K/uL Immature Gran # (Auto) 0.03 H (0.00-0.02) K/uL PT (9.0-12.0) Seconds INR (0.9-1.1) APTT (21.0-31.0) Seconds PTT Ratio Sodium (136-145) mmol/L Potassium (3.5-5.1) mmol/L Chloride (98-107) mmol/L Carbon Dioxide (21-32) mmol/L Anion Gap (3-11) BUN (7-18) mg/dl Creatinine (0.6-1.4) mg/dl Est Cr Clr Drug Dosing Est GFR ( Amer) ml/min Est GFR (Non-Af Amer) ml/min BUN/Creatinine Ratio (10-20) Glucose (70-99) mg/dl POC Glucose (70-99) mg/dl Lactate (0.4-2.0) mmol/L Calcium (8.5-10.1) mg/dl Magnesium (1.8-2.4) mg/dl Total Bilirubin (0.2-1) mg/dl AST (15-37) U/L ALT (12-78) U/L Alkaline Phosphatase (45-117) U/L Troponin I (0-0.045) ng/ml Total Protein (6.4-8.2) gm/dl Albumin (3.4-5.0) gm/dl Globulin (2.5-4.0) gm/dl Albumin/Globulin Ratio (0.9-2) Procalcitonin (0-0.5) ng/ml Urine Color Urine Appearance (Clear) Urine pH (4.5-7.5) Ur Specific [place] (1.000-1.030) Urine Protein (Negative) Urine Glucose (UA) (Negative) Urine Ketones (Negative) Urine Blood (Negative) Urine Nitrite (Negative) Urine Bilirubin (Negative) Urine Urobilinogen (Negative) Ur Leukocyte Esterase (Negative) Urine WBC (Auto) (0-5) /hpf Urine RBC (Auto) (0-4) /hpf U Hyaline Cast (Auto) (0-5) /lpf U Epithel Cells (Auto) (0-5) /lpf Urine Bacteria (Auto) (Negative) COVID-19 Eval Order SARS-CoV-2 (PCR) (Negative) Medications Administered Current Inpatient Medications Acetaminophen (Acetaminophen 325 Mg Tab) 650 mg PO Q4H PRN PRN Reason: pain/fever Stop: 03/28/21 23:34 Al Hydrox/Mg Hydrox/Simethicone (Aluminum/Magnesium Susp 30 Ml Udc) 30 ml PO Q6H PRN PRN Reason: Dyspepsia Stop: 03/28/21 23:34 Allopurinol (Allopurinol 300 Mg Tab) 300 mg PO DAILY NOAH Stop: 03/29/21 08:59 Atorvastatin Calcium (Atorvastatin 40 Mg Tab) 40 mg PO HS NOAH Stop: 03/29/21 20:59 Dextrose (Dextrose 50% 50 Ml Syringe) 25 - 50 ml IV UD PRN; Protocol PRN Reason: Hypoglycemia Protocol Stop: 03/28/21 23:34 Famotidine (Famotidine 40 Mg Tablet) 40 mg PO HS NOAH Stop: 03/29/21 20:59 Furosemide (Furosemide 40 Mg Tab) 40 mg PO DAILY NOAH Stop: 03/29/21 08:59 Gabapentin (Gabapentin 300 Mg Cap) 300 mg PO BID NOAH Stop: 03/29/21 08:59 Glucagon (Glucagon For Inj 1 Mg Vial) 1 mg SQ UD PRN; Protocol PRN Reason: Hypoglycemia Protocol Stop: 03/28/21 23:34 Glucose (Glucose 10 Tabs/Tube) 4 - 8 tabs PO UD PRN; Protocol PRN Reason: Hypoglycemia Protocol Stop: 03/28/21 23:34 Glucose (Glucose 40% Gel 15 Gm Tube) 15 - 30 gm PO UD PRN; Protocol PRN Reason: Hypoglycemia Protocol Stop: 03/28/21 23:34 Magnesium Sulfate/Dextrose (Magnesium Sulfate / D5w) 1 gm in 100 mls @ 50 mls/hr IV Q2H NOAH Stop: 02/27/21 04:29 Last Admin: 02/27/21 03:13 Dose: 50 mls/hr Documented by: Insulin Aspart (Insulin Aspart 100 Units/Ml 3 Ml Pen) 0 units SC ACHS NOAH Stop: 03/29/21 07:29 Levothyroxine Sodium (Levothyroxine Sodium 100 Mcg Tablet) 100 mcg PO DAILYBB NOAH Stop: 03/29/21 06:29 Loratadine (Loratadine 10 Mg Tab) 10 mg PO DAILY NOAH Stop: 03/29/21 08:59 Magnesium Hydroxide (Magnesium Hydroxide Susp 30 Ml Udc) 30 ml PO Q6H PRN PRN Reason: Constipation Stop: 03/28/21 23:34 Magnesium Oxide (Magnesium Oxide 400 Mg Tab) 400 mg PO BID NOAH Stop: 03/29/21 08:59 Metoprolol Succinate (Metoprolol Succ 50mg Ext Rel Tab) 50 mg PO DAILY NOAH Stop: 03/29/21 08:59 Miscellaneous (Carbohydrates For Hypoglycemia ) 15 - 30 gm PO UD PRN PRN Reason: Hypoglycemia Protocol Stop: 03/28/21 23:34 Miscellaneous Information (Vancomycin Consult Active) 1 ea N/A UD PRN PRN Reason: Consult Stop: 03/28/21 21:47 Ondansetron HCl (Ondansetron Inj 2 Mg/Ml 2 Ml Vial) 4 mg IV Q6H PRN PRN Reason: Nausea Stop: 03/28/21 23:34 Polyethylene Glycol (Polyethylene (Miralax) 17 Gm Pack) 17 gm PO DAILY NOAH Stop: 03/29/21 08:59 Polyethylene Glycol (Polyethylene (Miralax) 17 Gm Pack) 17 gm PO DAILY PRN PRN Reason: Constipation Stop: 03/28/21 23:34 Senna/Docusate Sodium (Docusate Sodium/Senna 50/8.6mg Tab) 1 tab PO QDL PRN PRN Reason: Constipation Stop: 03/28/21 23:34 Tamsulosin HCl (Tamsulosin Hcl 0.4 Mg Cap) 0.4 mg PO HS NOAH Stop: 03/29/21 20:59 Supervising Physician Co-Signing Physician Notes Patient seen and examined, chart reviewed, case discussed with Dr. Rush and I agree with his assessment and plan as documented above. Briefly, patient is a 70yo male with history of DM, HLP, Gout, s/p lumbar decompression/fusion for cauda equina performed in December presenting with progressive weakness, fatigue and back pain Patient febrile and tachycardic on arrival Surgical site well approximated with no dehiscence, erythema or fluctuance HEENT - NC/AT, PERRL, MMM, Neck supple Heart - +S1/S2, regular, no m/r/g Lungs - CTA Abd- +Bs, soft, NT/ND Ext - No edema, +neuropathy diminished sensation Labs and images reviewed Assessment/Plan - 70yo C male presenting with fever, fatigue and weakness as well as back pain. Ghazal had surgical decompression in December. Wound appears well healed with no overt evidence of infection -Follow cultures -Empiric antibiotics -Ortho consultation appreciated -Remainder of plan as above Resident Activity Tracking Resident Involvement: Resident Care Provided Care Provided: Adult Hospital Medicine (1) Sepsis Sepsis acute organ dysfunction status: unspecified Sepsis type: sepsis due to unspecified organism Qualified Code(s): A41.9 - Sepsis, unspecified organism (2) Constipation Constipation type: unspecified constipation type Qualified Code(s): K59.00 - Constipation, unspecified
[2021-02-26] MEDS ORDERED: DOCUSATE SODIUM/SENNA 50/8.6MG TAB PO PRN (23:35)
[2021-02-26] MEDS ORDERED: GLUCAGON FOR INJ 1 MG VIAL SQ PRN (23:35)
[2021-02-26] MEDS ORDERED: DEXTROSE 50% 50 ML SYRINGE IV PRN (23:35)
[2021-02-26] MEDS ORDERED: GLUCOSE 10 TABS/TUBE PO PRN (23:35)
[2021-02-26] MEDS ORDERED: MAGNESIUM HYDROXIDE SUSP 30 ML UDC PO PRN (23:35)
[2021-02-26] MEDS ORDERED: POLYETHYLENE (MIRALAX) 17 GM PACK PO PRN (23:35)
[2021-02-26] MEDS ORDERED: ONDANSETRON INJ 2 MG/ML 2 ML VIAL IV PRN (23:35)
[2021-02-26] MEDS ORDERED: ACETAMINOPHEN 325 MG TAB PO PRN (23:35)
[2021-02-26] MEDS ORDERED: ALUMINUM/MAGNESIUM SUSP 30 ML UDC PO PRN (23:35)
[2021-02-26] MEDS ORDERED: GLUCOSE 40% GEL 15 GM TUBE PO PRN (23:35)
[2021-02-26] MEDS ORDERED: CARBOHYDRATES FOR HYPOGLYCEMIA PO PRN (23:35)
[2021-02-27] MEDS: MAGNESIUM SULFATE / D5W 1 GM/100 ML BAG IV SCH ×2 (00:54→03:13)
[2021-02-27] MEDS: LEVOTHYROXINE SODIUM 100 MCG TABLET PO SCH (06:06)
[2021-02-27 06:33] LABS: Basophils # (auto) 0.03 K/uL (0-0.2); Basophils % (auto) 0.3 %; Eosinophils # (auto) 0.09 K/uL (0-0.5); Eosinophils % (auto) 0.9 %; Hematocrit (blood only) 34.2 % (42-52); Hemoglobin 11.5 g/dL (14.0-18.0); Immature Granulocytes # (auto) 0.03 K/uL (0.00-0.02); Immature Granulocytes % (auto) 0.3 %; Lymphocytes # (auto) 1.11 K/uL (1.2-3.4); Lymphocytes % (auto) 11.2 %; Mean Corpuscular Hemoglobin 30.3 pg (25-34); Mean Corpuscular Hgb Conc 33.6 g/dL (32-36); Mean Platelet Volume 11.5 fL (7.4-10.4); Monocytes # (auto) 0.65 K/uL (0.11-0.59); Monocytes % (auto) 6.5 %; Neutrophils # (auto) 8.03 K/uL (1.4-6.5); Neutrophils % (auto) 80.8 %; Platelet Count 261 K/uL (130-400); RDW Coefficient of Variation 13.2 % (11.5-14.5); RDW Standard Deviation 43.4 fL (36.4-46.3); White Blood Count 9.94 K/uL (4.8-10.8)
[2021-02-27 07:09] LABS: BUN Creatinine Ratio 10.2 (10-20); Creatinine Clr Calc Pharmacy 116.4 ml/min; Est GFR (African American) 109.1 ml/min; Est GFR (Non-African American) 94.1 ml/min; Phosphorus 3.5 mg/dl (2.5-4.9); Potassium 3.4 mmol/L (3.5-5.1)
--- NOTE | 2021-02-27 07:23 | CT Scan Report ---
CT abd pelvis IV con only CLINICAL HISTORY: Abdominal pain. Sepsis. COMPARISON STUDY: 02/03/2021 TECHNIQUE: The patient was scanned in a dynamic helical fashion during intravenous administration of 94 cc of Optiray 320 A dose lowering technique was utilized adhering to the principles of ALARA. CT DOSE: 840.09 mGy.cm FINDINGS: Lower chest: There are bibasilar atelectatic changes. Liver: The contrast-enhanced liver is normal in size, contour, and attenuation. There is no intrahepa tic biliary ductal dilatation. The hepatic veins and portal veins are patent. Gallbladder: Unremarkable. Spleen: Normal in size and attenuation. Pancreas: Unremarkable. Adrenal glands: Unremarkable. Kidneys: There is mild bilateral perinephric stranding. Small renal hypodensities statistically repre sent cysts. There is no significant hydronephrosis. Bowel: There are no transition zones indicate bowel obstruction. There is no evidence of acute divert iculitis. There is no evidence of acute appendicitis. There is an area of nonspecific rectal wall thi ckening. Evaluation the pelvis is limited due to beam hardening artifact from bilateral hip arthropla sties. Peritoneum: There is no intraperitoneal free air or abdominal ascites. There is a tiny fat-containing umbilical hernia. There is a small fat-containing left inguinal hernia. Vasculature: The abdominal aorta is normal in course and caliber. Adenopathy: None. Pelvic viscera: Evaluation the pelvis is limited due to beam hardening artifact. There is mild prosta megaly. There is mild bladder wall thickening. Skeletal structures: Postsurgical changes are present within the lumbar spine IMPRESSION: 1. No evidence of bowel obstruction. No evidence of free air 2. Diverticulosis. No evidence of acute diverticulitis 3. No evidence of acute appendicitis 4. Mild prostatomegaly and mild bladder wall thickening 5. Nonspecific focus of focal rectal wall thickening. Nonemergent GI follow-up recommended. ACT 112: Positive. There are findings on this exam that require communication between the performing entity and the patient following Patient Test Result Information Act ([place] Act 112) guidelines. Electronically signed by: Curly Graves M.D. 02/27/2021 7:22 AM
[2021-02-27] MEDS ORDERED: VANCOMYCIN HCL 1,500 MG in SODIUM CHLORIDE 0.9% 500 ML IV SCH (08:00)
[2021-02-27] MEDS ORDERED: VANCOMYCIN HCL 1,250 MG in SODIUM CHLORIDE 0.9% 250 ML IV SCH (08:00)
[2021-02-27] MEDS: POLYETHYLENE (MIRALAX) 17 GM PACK PO SCH (08:11)
[2021-02-27] MEDS: DOCUSATE SODIUM/SENNA 50/8.6MG TAB PO SCH (08:11)
--- NOTE | 2021-02-27 08:38 | CT Scan Report ---
CT lumbar spine w con CT DOSE: CLINICAL HISTORY: lower back pain TECHNIQUE: Helical images were acquired in the transverse plane. Sagittal coronal reformatted images were acquired. A dose lowering technique was utilized adhering to the principles of ALARA. COMPARISON STUDY: MRI dated 01/17/2021 FINDINGS: There are postsurgical changes of an L4-5 discectomy and interbody fusion. There are postsurgical evon nges of posterior pedicle screw fixation. There are several Schmorl's nodes. There is a partially visualized superior endplate T11 compression deformity possibly old. No acute fractures or traumatic subluxations are visualized. There is mild spinal stenosis at the L3-4 level. There is bilateral foraminal narrowing at the L5-S1 level. IMPRESSION: 1. Interval L4-5 spinal decompression and fusion 2. Mild spinal stenosis. L3-4 level 3. No acute lumbar fractures or traumatic subluxations 4. Partially visualized superior endplate T11 compression deformity ACT 112: Negative or not required by law. Electronically signed by: Curly Graves M.D. 02/27/2021 8:37 AM
[2021-02-27] MEDS: MAGNESIUM OXIDE 400 MG TAB PO SCH ×2 (08:55→20:39)
[2021-02-27] MEDS: INSULIN ASPART 100 UNITS/ML 3 ML PEN SC SCH ×4 (08:55→20:41)
[2021-02-27] MEDS: FUROSEMIDE 40 MG TAB PO SCH (08:56)
[2021-02-27] MEDS: METOPROLOL SUCC 50MG EXT REL TAB PO SCH (08:56)
[2021-02-27] MEDS: allopurinoL 300 MG TAB PO SCH (08:56)
[2021-02-27] MEDS: GABAPENTIN 300 MG CAP PO SCH ×2 (08:56→20:39)
[2021-02-27] MEDS: LORATADINE 10 MG TAB PO SCH (08:56)
--- NOTE | 2021-02-27 10:30 | Pharmacy Report ---
Pharmacy Abx Initial Consult - Date of Service February 27, 2021 - Pharmacy Dosing Scope Date of Consult: 02/26/21 Consultation requested by: Dr. Rush Pharmacy is consulted to initiate vancomycin IV dosing therapy, order appropriate labs and adjust drug dose/frequency. - Subjective The patient is a 70 year old M admitted on 02/26/21 22:48. - Objective Height: 6 ft 1 in Weight: 98.5 kg Vital Signs (Past 12hrs): Vital Signs Temp Pulse Pulse Resp BP BP Pulse Ox 02/27/21 07:22 37.3 C 101 H 18 148/81 H 98 02/26/21 23:36 37.1 C 93 H 16 134/77 98 02/26/21 23:35 37.1 C 93 H 16 134/77 98 02/26/21 23:00 93 H 21 162/105 H 97 02/26/21 22:30 97 H 19 160/106 H 97 Lab Results (24hrs): Laboratory Tests (24 Hours) 02/27/21 02/27/21 02/26/21 05:45 05:45 18:35 WBC 9.94 Neut # (Auto) 8.03 H Creatinine 0.74 Est Cr Clr Drug Dosing 116.4 Procalcitonin 0.22 02/26/21 02/26/21 17:33 17:33 WBC 12.73 H Neut # (Auto) 10.01 H Creatinine 0.91 Est Cr Clr Drug Dosing Not Reportable Procalcitonin Micro Results: 02/26/21 18:34 Aerobic Blood Culture - Pending Blood Anaerobic Blood Culture - Pending 02/26/21 17:33 Aerobic Blood Culture - Pending Blood Anaerobic Blood Culture - Pending - Assessment & Plan Assessment 70 year old M presented to ED last evening with progressive weakness, fatigue, and back pain. In ED, patient had Tmax of 38 C with mild leukocytosis (WBC of 12.7 K) and mildly elevated lactic acid (2.3). Of note, patient is s/p lumbar decompression/fusion in December 2020. Vancomycin started empirically due to concern for infection in patient with recent surgical intervention. Orthopedic surgery consulted. Blood cultures ordered and pending. Plan Vancomycin IV * Loading dose: 2000 mg (20 mg/kg) * Maintenance dose: 1500 mg IV (15 mg/kg) every 12 hours * Vancomycin discontinued after first maintenance dose Pharmacy will continue to follow and will adjust dose/frequency as necessary. Thank you.
[2021-02-27] MEDS ORDERED: LAVAGE SOLUTION 4000ML PO ONE (10:58)
--- NOTE | 2021-02-27 11:08 | Hospitalist Progress Note ---
Date of Service February 27, 2021 Assessment & Plan (1) Sepsis: No definitive source of sepsis therefore discontinue further antibiotics at this time. Back however not suspect to be infected orthopedics. Possible proctitis on CT although suspect this is due to constipation rather than active infection. He has no pain in this area. Plan to keep patient for 48 hours pending blood cultures negative due to fever and WBC and make sure fever does not return. (2) Abnormal CT of the abdomen: Will need outpatient follow-up with gastroenterology for nonspecific focus of rectal wall thickening. (3) Spinal stenosis, lumbar region with neurogenic claudication: -Status post lumbar decompression in December with Dr. Eckert -Ortho consulted given apparent infectious concerns upon admission (4) Urinary retention: Self cath Q8H (5) Hypomagnesemia: Resolved this morning after supplementation (6) Constipation: Golyteley prep 2000ml (7) Diabetes: HbA1c 7.7 in December. -Hold home oral regimen -BSGs ACHS -Sliding scale insulin initiated Admission and Anticipated Discharge Date Admission Date: February 26, 2021 Subjective Mild improvement since coming in. No BM yet. Last BM 02/21. No change in urine, self caths Q8H. No shortness of breath, cough. No acute events overnight. Review of Systems Review of Systems: All systems reviewed & are unremarkable except as noted in HPI & below Physical Exam Constitutional: well developed and well nourished; no acute distress Eyes: + anicteric sclerae; normal pupil size Respiratory: normal respiratory effort, lungs clear to auscultation Cardiovascular: RRR, no murmur, no edema Musculoskeletal: Spine: no lumbar spinal tenderness Skin: no rashes, warm and dry (No areas of cellulitis) Neurologic: + focal motor deficit (b/l LE weakness) Psychiatric: A+Ox3, euthymic affect Genitourinary: no CVA tenderness Results & Data Results & Data ([facility]) Vital Signs (Past 12 Hours) Vital Signs Temp Pulse Resp BP Pulse Ox 02/27/21 07:22 37.3 C 101 H 18 148/81 H 98 02/26/21 23:36 37.1 C 93 H 16 134/77 98 02/26/21 23:35 37.1 C 93 H 16 134/77 98 PG Care Time/CCT Total # of Minutes Spent Total Time Spent with Patient: Total time spent is greater than 50% in coordination of care (as documented) at patient's floor/unit and/or counseling patient: Coding Level of Care Code 11775 Subseq Hosp Care Lvl 2 Diagnoses Sepsis A41.9 Sepsis acute organ dysfunction status: unspecified Sepsis type: sepsis due to unspecified organism Abnormal CT of the abdomen R93.5 Spinal stenosis, lumbar region with neurogenic claudication M48.062 Urinary retention R33.9 Hypomagnesemia E83.42 Constipation K59.00 Constipation type: unspecified constipation type Diabetes E11.9 (1) Sepsis Sepsis acute organ dysfunction status: unspecified Sepsis type: sepsis due to unspecified organism Qualified Code(s): A41.9 - Sepsis, unspecified organism (2) Constipation Constipation type: unspecified constipation type Qualified Code(s): K59.00 - Constipation, unspecified
--- NOTE | 2021-02-27 14:00 | Orthopedic Consultation ---
Date of Consultation February 27, 2021 Assessment & Plan (1) Elevated lactic acid level: At this time I would like to have him undergo physical therapy will assess his progress. He may have to consider a lumbar MRI if he fails to improve. Do not have a source for his infection at this time. Hopefully if he improves in the next 24 to 40 hours we can have him return to rehab where he is obtaining significant improvement over his overall function and independence. Present on Admission?: Yes History of Present Illness Reason for Consultation: Back pain with fever. Attending Physician: Haris hAn MD History of Present Illness This is a 70-year-old male well-known to me the presents yesterday with onset of worsening back pain and fever. This morning he states he has been improving appropriately with physical therapy walking with a walker but noting some weakness in his legs over the past 24 hours this was associate with a fever and was subsequently brought to emergency room. This morning he does not have any back pain. He denies any radicular complaints or leg pain. Denies any significant abdominal discomfort. Does note has not had a bowel movement in several days. Allergies Allergy/AdvReac Type Severity Reaction Status Date / Time Penicillins Allergy Intermediate HIGH Verified 02/26/21 19:09 FEVER, RASH (NOTED ALLERGIC TO "ANY-CILLIN" bee pollen Allergy Unknown Unknown Verified 02/26/21 19:09 Home Medications Medication Instructions Recorded Confirmed Type glucosamine 750 [id number] 1 tab PO BID 10/22/18 02/26/21 History no1 644 mg-C 30 mg-fabio 1 mg tablet allopurinol 300 mg tablet 300 mg PO DAILY #90 tab 07/26/20 02/26/21 Rx famotidine 40 mg tablet 40 mg PO HS #90 tab 11/15/20 02/26/21 Rx metformin 1,000 mg tablet 1,000 mg PO BID #180 tab 01/10/21 02/26/21 Rx acetaminophen 650 mg PO Q4 PRN 02/01/21 02/26/21 History atorvastatin 40 mg PO HS 02/01/21 02/26/21 History hydrocodone-acetaminophen 1 tab PO Q6H PRN 02/01/21 02/26/21 History loratadine 10 mg PO DAILY 02/01/21 02/26/21 History polyethylene glycol 3350 [Miralax] 17 g PO QDL PRN 02/01/21 02/26/21 History psyllium 1 packet PO DAILY 02/01/21 02/26/21 History sennosides-docusate sodium 1 tab PO QDL PRN 02/01/21 02/26/21 History [Senokot-S] glimepiride 2 mg tablet 2 mg PO DAILY #90 tab 02/07/21 02/26/21 Rx magnesium oxide 400 mg PO BID #60 tab 02/08/21 02/26/21 Rx metoprolol succinate 50 mg PO DAILY #30 tab 02/08/21 02/26/21 Rx tamsulosin 0.4 mg PO HS #30 cap 02/08/21 02/26/21 Rx furosemide 40 mg PO DAILY 02/26/21 02/26/21 History gabapentin 300 mg PO BID 02/26/21 02/26/21 History levothyroxine 100 mcg PO DAILY 02/26/21 02/26/21 History omeprazole 20 mg PO DAILY 02/26/21 02/26/21 History Patient History Medical History Allergic rhinitis Cauda equina syndrome Constipation Diabetes Dyslipidemia (high LDL; low HDL) GERD (gastroesophageal reflux disease) Gout Hx of testicular cancer Hypertension Hypothyroidism Lumbar disc disease Lumbar disc herniation with radiculopathy Lumbar pain with radiation down both legs Osteoarthritis Spinal stenosis, lumbar region with neurogenic claudication Urinary retention Surgical History Hx of lumbosacral spine surgery Hx of total hip arthroplasty S/P orchiopexy Family History Father Lung cancer Cancer brain Mother Diabetes Uncle Prostate cancer Grandmother (Paternal) Stroke Family/Other Colorectal cancer Breast cancer Myocardial infarction Grandfather (Maternal) Rheumatoid arthritis Denies family history of Ovarian cancer Social History Smoking Status: Light tobacco smoker Tobacco Type: Cigarettes Age Quit Using Tobacco: 65; packs per day: 0.5; Years Smoked: 24; Cigarettes Per Day: just a few per week; Second Hand Exposure: No; Hx Alcohol Use: No Hx Substance Use: No Preferred Language: Nauruan Communication Ability: Effective Visual Impairment: No Limitations Hearing Ability: Normal Healthcare Recruiter Required: No Beliefs That Will Affect Care: None marital status: Current Living Situation: Spouse Current Living Situation Comment: Pt. has been at [facility] in [place] for past week current occupational status: retired Other Information That Helps Us Care for You: No Feels Safe at Home: Yes Safety Concerns: Feels Safe At This Time Childhood Exposure to Second-Hand Smoke: No Diet Comment: eats what he wants to caffeine: Yes during the past year weight has: decreased > 10 lbs Dental Care, Regularly: No Physical Activity Frequency: Other Physical Activity Frequency Comment: house chores Seatbelt Use: never Sunscreen Use: No Assistive Devices: Walker Assistive Devices Comment: bedside commode, shower chair Physical Exam Physical Exam: On exam his strength is improving. Is 4+/5 right plantar flexion dorsiflexion quadricep with a 4/5 on the left. Sensory has improved from his last visit. He is appreciates cold and light touch. His lumbar incision is well-healed. There is no gross erythema no drainage. Is nontender to palpation and percussion of the lumbar spine. He gets exhibits no tension signs with straight leg raising. Results & Data ([facility]) Vital Signs (Past 12 Hours) Vital Signs Temp Pulse Resp BP Pulse Ox 02/27/21 07:22 37.3 C 101 H 18 148/81 H 98
[2021-02-27] MEDS ORDERED: cefTRIAXone SODIUM 2,000 MG in DEXTROSE 5% 50 ML IV SCH (17:00)
[2021-02-27] MEDS ORDERED: TAMSULOSIN HCL 0.4 MG CAP PO SCH (21:00)
[2021-02-27] MEDS ORDERED: ATORVASTATIN 40 MG TAB PO SCH (21:00)
[2021-02-27] MEDS ORDERED: FAMOTIDINE 40 MG TABLET PO SCH (21:00)
--- NOTE | 2021-02-27 21:39 | Electrocardiogram Report ---
Test Reason : Blood Pressure : / mmHG Vent. Rate : 105 BPM Atrial Rate : 105 BPM P-R Int : 154 ms QRS Dur : 090 ms QT Int : 340 ms P-R-T Axes : 058 -03 032 degrees QTc Int : 449 ms Sinus tachycardia Otherwise normal ECG When compared with ECG of 01-FEB-2021 18:29, No significant change was found Confirmed by Bean Casillas ([id number]) on 02/27/2021 9:39:23 PM Referred By: REFERRED SELF Confirmed By:Bean Casillas
[2021-02-28] MEDS: LEVOTHYROXINE SODIUM 100 MCG TABLET PO SCH (05:27)
[2021-02-28 06:36] LABS: Basophils # (auto) 0.05 K/uL (0-0.2); Basophils % (auto) 0.7 %; Eosinophils # (auto) 0.09 K/uL (0-0.5); Eosinophils % (auto) 1.2 %; Hematocrit (blood only) 33.1 % (42-52); Hemoglobin 11.1 g/dL (14.0-18.0); Immature Granulocytes # (auto) 0.02 K/uL (0.00-0.02); Immature Granulocytes % (auto) 0.3 %; Lymphocytes # (auto) 1.59 K/uL (1.2-3.4); Lymphocytes % (auto) 20.7 %; Mean Corpuscular Hemoglobin 30.3 pg (25-34); Mean Corpuscular Hgb Conc 33.5 g/dL (32-36); Mean Corpuscular Volume 90.4 fL (80-100); Mean Platelet Volume 11.2 fL (7.4-10.4); Monocytes # (auto) 0.64 K/uL (0.11-0.59); Monocytes % (auto) 8.3 %; Neutrophils % (auto) 68.8 %; Platelet Count 237 K/uL (130-400); Red Blood Count 3.66 M/uL (4.7-6.1); White Blood Count 7.69 K/uL (4.8-10.8)
--- NOTE | 2021-02-28 06:57 | Billing Data ---
Date of Service February 26, 2021 Coding Level of Care Code 22295 Initial Inpt Care Lvl 3
[2021-02-28 07:13] LABS: BUN Creatinine Ratio 9.5 (10-20); Calcium 8.1 mg/dl (8.5-10.1); Creatinine Clr Calc Pharmacy 114.8 ml/min; Est GFR (African American) 108.5 ml/min; Est GFR (Non-African American) 93.6 ml/min; Potassium 3.1 mmol/L (3.5-5.1)
[2021-02-28] MEDS ORDERED: POTASSIUM CHLORIDE CRTAB 20 MEQ TABCR PO STA (07:35)
--- NOTE | 2021-02-28 08:16 | Orthopedic Progress Note ---
Date of Service February 28, 2021 Assessment & Plan (1) Cauda equina compression: Admission and Anticipated Discharge Date Admission Date: February 26, 2021 Plan at this time I am hoping he is able to begin physical therapy today ambulate with his braces and walker and sit in a chair as tolerated. Subjective Patient denies any back pain. He states he has not had any back pain since admission. He attempted ambulation yesterday but unfortunately is having difficulty controlling his bowels. Physical Exam Physical Exam: On exam today his strength is unchanged. He appears comfortable. Results & Data ([facility]) Vital Signs (Past 12 Hours) Vital Signs Temp Pulse Resp BP Pulse Ox 02/28/21 07:19 36.6 C 86 16 114/71 94 02/27/21 22:58 36.8 C 72 20 121/71 92
[2021-02-28] MEDS: INSULIN ASPART 100 UNITS/ML 3 ML PEN SC SCH ×2 (09:50→13:14)
[2021-02-28] MEDS: POLYETHYLENE (MIRALAX) 17 GM PACK PO SCH (09:51)
[2021-02-28] MEDS: GABAPENTIN 300 MG CAP PO SCH (09:51)
[2021-02-28] MEDS: FUROSEMIDE 40 MG TAB PO SCH (09:51)
[2021-02-28] MEDS: METOPROLOL SUCC 50MG EXT REL TAB PO SCH (09:51)
[2021-02-28] MEDS: DOCUSATE SODIUM/SENNA 50/8.6MG TAB PO SCH (09:51)
[2021-02-28] MEDS: LORATADINE 10 MG TAB PO SCH (09:51)
[2021-02-28] MEDS: MAGNESIUM OXIDE 400 MG TAB PO SCH (09:51)
[2021-02-28] MEDS: allopurinoL 300 MG TAB PO SCH (09:51)
--- NOTE | 2021-02-28 16:19 | Discharge Summary ---
Date of Service February 28, 2021 Admission HPI Per Admitting Provider Frederic Camejo III is a 70-year-old male with past medical history significant for diabetes, dyslipidemia, constipation, gout, spinal stenosis with neurogenic claudication, status post lumbar decompression/fusion for cauda equina syndrome (December); who presents to the emergency room with concerns for progressive weakness, fatigue, and back pain. Of note patient was recently discharged from rehab on Saturday (02/18), where he had noted considerable improvement in his strength and functionality following that stay. Noted that over the last 2 to 3 days he has had increasing concerns for sharp shooting pains from his lower back down into his leg as well as concerns for weakness of his legs, and general feeling of difficulty with moving even with utilization of his walker. Over this time he has also noticed that he has been feeling diffusely warm, and his noted that while they had not directly taking his temperature he had seemed warmer. In the ED he initially had a temperature of 38C with mild leukocytosis and elevated lactate. Case was discussed with Dr. Eckert prior to admission by ED provider, and indicated holding off on further imaging of lumbar spine until he was able to evaluate in AM. Patient denies numbness/tingling in groin, inability to move legs, denies issues with incontinence, abdominal nausea, vomiting. Endorses continued need to self catheterize over the last week, as well as new onset constipation starting on Saturday. Denies any use of narcotic medications throughout this time, PDMP reflects no recent narcotic prescriptions. Admission Exam Per Admitting Provider Constitutional: WD/WN, vitals as above Eyes: PERRL, conjunctivae normal, anicteric sclerae Respiratory: normal respiratory effort, lungs clear to auscultation Auscultation: no crackles, no rales, no rhonchi and no wheezes Cardiovascular: Rate/Rhythm: regular rate and regular rhythm Heart Sounds: no gallop, no murmur and no cardiac rub Vessels: normal peripheral pulses; no JVD Extremities: no edema Gastrointestinal (Abdomen): Inspection/Auscultation: normal bowel sounds; abdomen not distended Percussion/Palpation: abdomen soft; abdomen nontender and no guarding Musculoskeletal: no cyanosis or clubbing, extremities motor strength 5/5 Skin: no rashes, warm and dry Neurologic: deep tendon reflexes 2+ bilaterally, plantar reflexes intact bilaterally, moves all extremities and awake; + abnormal sensation to monofilament (Decreased sensation over lateral plantar nerve distribution) and no focal motor deficits Psychiatric: Orientation: alert and oriented x 3 Principal Diagnosis Constipation Discharge Exam Constitutional well developed and well nourished; no acute distress Eyes + anicteric sclerae; normal pupil size Respiratory normal respiratory effort, lungs clear to auscultation Cardiovascular RRR, no murmur, no edema Musculoskeletal Spine: no lumbar spinal tenderness Skin no rashes, warm and dry (No areas of cellulitis) Neurologic + focal motor deficit (b/l LE weakness) Psychiatric A+Ox3, euthymic affect Genitourinary no CVA tenderness Discharge Data Allergies Allergy/AdvReac Type Severity Reaction Status Date / Time Penicillins Allergy Intermediate HIGH Verified 02/26/21 19:09 FEVER, RASH (NOTED ALLERGIC TO "ANY-CILLIN" bee pollen Allergy Unknown Unknown Verified 02/26/21 19:09 Consultations 02/26/21 21:07 ED Decision to Admit Stat 02/26/21 23:35 Consult Orthopedic Surgery Routine Ordered Studies 02/26/21 17:26 CT abd pelvis IV con only Urgent IMPRESSION: 1. No evidence of bowel obstruction. No evidence of free air 2. Diverticulosis. No evidence of acute diverticulitis 3. No evidence of acute appendicitis 4. Mild prostatomegaly and mild bladder wall thickening 5. Nonspecific focus of focal rectal wall thickening. Nonemergent GI follow-up recommended. 02/26/21 20:34 CT lumbar spine w con Urgent IMPRESSION: 1. Interval L4-5 spinal decompression and fusion 2. Mild spinal stenosis. L3-4 level 3. No acute lumbar fractures or traumatic subluxations 4. Partially visualized superior endplate T11 compression deformity Hospital Course (1) Sepsis: Frederic Camejo is a 70 year old male admitted to [facility] from February 26-2020 due to fever and progressive weakness. No source of infection was found although he was treated empirically with antibiotics in the ER further antibiotics were discontinued. Suspect symptoms secondary to constipation and recommend regular bowel regimen with Senna and MiraLAX as prescribed to aim for one bowel movement daily. CT showed nonspecific focus of focal rectal wall thickening - suspect this is secondary to constipation but recommend following up with gastroenterology in 4-6 weeks for further evaluation of this. (2) Abnormal CT of the abdomen: (3) Spinal stenosis, lumbar region with neurogenic claudication: (4) Urinary retention: (5) Hypomagnesemia: (6) Constipation: (7) Diabetes: Total Time Total Time Spent Total Time Spent (In Minutes): 35 Total Time Includes: Examination of the Patient, Discharge Planning, Medication Reconciliation and Communication With Other Providers Discharge Plan Discharge Items Patient Disposition: Home - Home Health Services Reason For Visit: FEVER AND WEAKNESS Discharge Diagnosis: Constipation Activity: As commented below Activity Comment: Full weight bearing, must wear AFO braces and shoes to ambulate Non-emergency contact: Primary Care Provider Call non-emergency contact if: you have any medication questions and your symptoms worsen Follow-up/Referrals: Altaf Harley DO [Physician] - 03/28/21 9:40 am (4-6 weeks, non-specific focus of rectal wall thickening) Liz Kirby DO [Primary Care Provider] - 03/07/21 3:20 pm () Diet: Carb Consistent or DM2 Addtl Attending Provider Instructions: You were admitted to [facility] from February 26-2020 due to fever and progressive weakness. No source of infection was found although you were treated empiracally with antibiotics in the emergency room further antibiotics were discontinued. Suspect symptoms secondary to constipation and recommend regular bowel regimen with Senna and MiraLAX as prescribed to aim for one bowel movement daily. CT showed nonspecific focus of focal rectal wall thickening - suspect this is secondary to constipation but recommend following up with gastroenterology in 4-6 weeks for further evaluation of this. Kind regards, Dr Haris Ahn Pending Studies at Discharge: Yes Stand-Alone Forms: My [facility], Smoking Cessation Medications and DC Order Prescriptions: Continued [id number] [Osteo Bi-Flex Triple Strength] 750 mg-644 mg- 30 mg-1 mg tablet 1 tab PO BID RF: 0 allopurinol 300 mg tablet 300 mg PO DAILY Qty: 90 RF: 3 metformin 1,000 mg tablet 1,000 mg PO BID Qty: 180 RF: 1 glimepiride 2 mg tablet 2 mg PO DAILY Qty: 90 RF: 1 famotidine 40 mg tablet 40 mg PO HS Qty: 90 RF: 1 atorvastatin 40 mg tablet 40 mg PO HS RF: 0 hydrocodone-acetaminophen 7.5-325 mg tablet 1 tab PO Q6H PRN (Reason: pain scale 4-10 lumbar) RF: 0 psyllium Packet 1 packet PO DAILY RF: 0 loratadine 10 mg Tablet 10 mg PO DAILY RF: 0 polyethylene glycol 3350 [Miralax] 17 gram powder in packet 17 g PO QDL PRN (Reason: Constipation) RF: 0 sennosides-docusate sodium [Senokot-S] 8.6-50 mg tablet 1 tab PO QDL PRN (Reason: Constipation) RF: 0 acetaminophen 325 mg Tablet 650 mg PO Q4 PRN (Reason: Pain) RF: 0 tamsulosin 0.4 mg Capsule 0.4 mg PO HS Qty: 30 RF: 0 metoprolol succinate 50 mg Tablet Extended Release 24 Hr 50 mg PO DAILY Qty: 30 RF: 0 magnesium oxide 400 mg (241.3 mg magnesium) Tablet 400 mg PO BID Qty: 60 RF: 0 furosemide 40 mg tablet 40 mg PO DAILY RF: 0 levothyroxine 100 mcg tablet 100 mcg PO DAILY RF: 0 omeprazole 20 mg capsule,delayed release(DR/EC) 20 mg PO DAILY RF: 0 gabapentin 300 mg capsule 300 mg PO BID RF: 0 apixaban 5 mg Tablet 5 mg PO BID RF: 0 fluticasone propionate 50 mcg/actuation [place],Suspension 1 spray INTRANASAL BID PRN (Reason: Nasal Congestion) RF: 0 docusate sodium 100 mg Tablet 100 mg PO BID RF: 0 Discharge Orders: Discharge Order (Routine); Ordered 02/28/21 Ordered By: Haris Machuca/Other Patient Handouts: Preventing Deep Vein Thrombosis Admission Data Admit Date/Time: 02/26/21 22:48 Attending Provider: Haris Ahn Admit Provider: Osvaldo Rush Primary Care Provider: Liz Kirby Other Providers: Annette Matthews ; Young Eckert Other Interventions: Discharge Summary Assessment (RN) Last Done: 02/28/21 17:13 Coding Level of Care Code D/C Day Management >30 mins Diagnoses Sepsis A41.9 Sepsis acute organ dysfunction status: unspecified Sepsis type: sepsis due to unspecified organism Abnormal CT of the abdomen R93.5 Spinal stenosis, lumbar region with neurogenic claudication M48.062 Urinary retention R33.9 Hypomagnesemia E83.42 Constipation K59.00 Constipation type: unspecified constipation type Diabetes E11.9
[2021-02-28] MEDS ORDERED: APIXABAN 5 MG TABLET PO SCH (21:00)
--- NOTE | 2021-03-16 06:36 | Coding Query ---
CODING QUERY To promote full compliance with coding requirements relating to patient care, provider participation is requested in all cases of fisheries management biologist uncertainty. Please assist us with the question(s) below: Coding Question(s): Patient had symptoms of Sepsis and was treated with antibiotics. But per discharge, "suspect symptoms secondary to constipation and recommend regular bowel regiment..." Please clarify below: ( ) (Possible) Sepsis (X) Sepsis Ruled Out ( ) Other Please Explain: Thank you Luis Fernando Pacheco Principal Diagnosis: "that condition established after study, to be chiefly responsible for occasioning the admission of the patient to the hospital for care." Co-Existing Principal Diagnosis: "when two or more diagnoses equally meet the criteria for principal diagnosis as determined by the circumstances of admission, diagnostic work up, and/or therapy provided, and the Alphabetic Index, Tabular List, or another coding guideline does not provide sequencing direction, any one of the diagnoses may be sequenced first." "When the physician has documented what appears to be a current diagnosis in the body of the record, but has not included the diagnosis in the final diagnostic statement, the physician should be asked whether the diagnosis should be added." (Source Coding Clinic 2 QTR90. p3-4) GHAZAL
== END 2021-02-28 17:49 | disposition home health service (06) | DRG 392 ==
LOC: ED 17:11 → SUATTDRO 22:48 → 3W 22:48

== ENCOUNTER 2021-04-24 11:34 | Inpatient (IN) ==
[2021-04-24 13:45] LABS: Basophils # (auto) 0.02 K/uL (0-0.2); Basophils % (auto) 0.1 %; Eosinophils # (auto) 0.01 K/uL (0-0.5); Eosinophils % (auto) 0.1 %; Hemoglobin 14.4 g/dL (14.0-18.0); Immature Granulocytes # (auto) 0.04 K/uL (0.00-0.02); Immature Granulocytes % (auto) 0.2 %; Lymphocytes # (auto) 1.62 K/uL (1.2-3.4); Lymphocytes % (auto) 9.8 %; Mean Corpuscular Hemoglobin 30.5 pg (25-34); Mean Corpuscular Hgb Conc 34.3 g/dL (32-36); Mean Platelet Volume 10.1 fL (7.4-10.4); Monocytes # (auto) 1.53 K/uL (0.11-0.59); Monocytes % (auto) 9.2 %; Neutrophils # (auto) 13.36 K/uL (1.4-6.5); Neutrophils % (auto) 80.6 %; Platelet Count 274 K/uL (130-400); RDW Coefficient of Variation 13.5 % (11.5-14.5); RDW Standard Deviation 44.3 fL (36.4-46.3); Red Blood Count 4.72 M/uL (4.7-6.1); White Blood Count 16.58 K/uL (4.8-10.8)
[2021-04-24 14:02] LABS: Alanine Aminotransferase 29 U/L (12-78); Albumin Level 3.3 gm/dl (3.4-5.0); Aspartate Aminotransferase 46 U/L (15-37); BUN Creatinine Ratio 13.4 (10-20); Blood Urea Nitrogen 15 mg/dl (7-18); Carbon Dioxide 29 mmol/L (21-32); Chloride 96 mmol/L (98-107); Est GFR (African American) 78.1 ml/min; Est GFR (Non-African American) 67.4 ml/min; Glucose 187 mg/dl (70-99); Potassium 4.2 mmol/L (3.5-5.1); Sodium 132 mmol/L (136-145)
[2021-04-24 14:04] LABS: Albumin Globulin Ratio 0.7 (0.9-2); Alkaline Phosphatase 98 U/L (45-117); Total Protein 8.3 gm/dl (6.4-8.2)
[2021-04-24] MEDS ORDERED: SODIUM CHLORIDE 0.9% 500 ML IV ONE (14:33)
[2021-04-24 14:53] LABS: Appearance Urine Turbid (Clear); Bacteria Urine Automated 4+ (Negative); Bilirubin Urine Negative (Negative); Blood Urine 3+ (Negative); Color Urine Dark Yellow; Epithelial Cell Urine Auto 0-5 /lpf (0-5); Glucose Urine UA Negative (Negative); Ketones Urine Negative (Negative); Leukocyte Esterase Urine 2+ (Negative); Nitrite Urine Negative (Negative); Protein Urine 2+ (Negative); Urobilinogen Urine Negative (Negative); WBC Urine Automated >30 /hpf (0-5)
[2021-04-24] MEDS ORDERED: cefTRIAXone SODIUM 2,000 MG/70 ML BAG IV STA (14:58)
--- NOTE | 2021-04-24 15:05 | XRay Report ---
XR chest 1V portable CLINICAL HISTORY: Fever COMPARISON STUDY: February 26, 2021 FINDINGS: No pneumothorax. No pleural effusion. Lung volumes are decreased with crowded lung markings. Diffuse prominence of pulmonary interstitium i s slightly worsened since prior with questionable superimposed airspace component within the right lo wer lobe. Cardiomediastinal silhouette is within normal limits in size. No significant pulmonary vascular congestion.. Osseous structures: Degenerative changes of the spine. IMPRESSION: 1. Possible infiltrative process within the right lower lung. Limited exam due to low inspiratory ef fort. ACT 112: Negative or not required by law. The above report was generated using voice recognition software. It may contain grammatical, syntax o r spelling errors. Electronically signed by: Pat Pinto DO 04/24/2021 3:03 PM
[2021-04-24] MEDS ORDERED: SODIUM CHLORIDE 0.9% 1000ML 1,000 ML IV ONE ×2 (15:09→16:01)
--- NOTE | 2021-04-24 15:25 | Emergency Department Note ---
Impression & Plan Acute non-ST elevation myocardial infarction (NSTEMI), Acute pyelonephritis, Catheter-associated urinary tract infection, Abnormal EKG ED Provider Note NAME: JOMAR HAAS III AGE: 70 SEX: M : 1950 ARRIVES VIA: Walk-In INFORMANT: Patient, ED PROVIDER(S): Lino Barajas DO CHIEF COMPLAINT: Fever HPI: The patient is a 70-year-old male who has a history of a spinal cord injury and sprain. The patient does self catheterize. He has noticed fever as well as cloudy urine. The patient did not see his family doctor for the symptoms but came to the emergency department. He is also been noticing fever as well as rigors. He has had the symptoms for the last few days. He has been able to fully catheterize himself. He notices no abdominal pain but does note some back pain. He is noticed no nausea or vomiting. He has been taking medications for fever. The patient has had multiple urinary tract infections in the past. ROS: See above HPI for pertinent positives & negatives. A total of 10 systems reviewed and were otherwise negative. PAST MEDICAL HISTORY: See Below PAST SURGICAL HISTORY: See Below FAMILY HISTORY: See Below SOCIAL HISTORY: See Below HOME MEDICATIONS: See Below ALLERGIES: See Below VITALS: See Below PHYSICAL EXAMINATION: GENERAL: The patient is awake and alert. He is nonanxious appearing. EYES: The conjunctivae are clear. The pupils are round and reactive. EARS, NOSE, MOUTH AND THROAT: The nose is without any evidence of any deformity. NECK: The neck is nontender and supple. RESPIRATORY: Normal respiratory effort is noted there is no evidence of wheezing rhonchi or rales CARDIOVASCULAR: Regular rate and rhythm noted there no murmurs rubs or gallops normal S1 normal S2. GASTROINTESTINAL: The abdomen is mildly distended but soft. There is no guarding rigidity. MUSCULOSKELETAL/EXTREMITIES: There is no evidence of gross deformity full range of motion is noted in the hips and shoulders. SKIN: Pedal edema was noted bilaterally. NEUROLOGIC: Patient is awake alert and oriented x3. MEDICAL DECISION MAKING: The patient is a 70-year-old male who presented to the emergency department with fever. The patient had fever chills and back pain. The patient has a history of self-catheterization for urinary retention because of neurogenic bladder. The patient was found to have EKG abnormalities. This could be consistent with ischemia or possibly pulmonary embolism. He was found to have an elevated troponin. He was started on IV antibiotics and IV heparin. The patient was reevaluated multiple times. I discussed the patient's laboratory and radiographic studies with him. We discussed this case with the on-call [facility] hospitalist. Ultimately the patient was feeling much better. Triage Nursing notes reviewed. Prior medical records reviewed Vital Signs: reviewed and remarkable for tachycardia and fever. Differential diagnosis: Viral syndrome, otitis, pharyngitis, pneumonia, influenza, meningitis, urinary tract infection, sepsis, bacteremia, as well as other pathologies. ER treatment provided: See below Diagnostics interpreted by me: ECG: EKG was obtained in the emergency department. My interpretation is sinus tachycardia 110 bpm. There is no ectopy. Low lateral T wave inversions were noted. This was compared to a tracing from February 262020. The EKG changes are new compared to the previous tracing. Cardiac Monitoring: An order was placed for continuous cardiac monitoring. The monitor shows a rate of 115 bpm with sinus tachycardia rhythm. Laboratory studies: As stated above and show below. Imaging studies: See below Consultation(s): 1520: The case was discussed with the on-call [facility] hospitalist, Dr. Duron. He will evaluate the patient in the emergency department. ED COURSE: Procedures: none PDMP:reviewed and no issues Critical Care: I have personally spent greater than 45 minutes of critical care time in the direct management of this patient. This includes bedside care, interpretation of diagnostic studies, and testing, discussion with consultants, patient, and family members, and other required patient management activities. This 45 minutes is in excess of all separately billable procedures. Past Med/Surg History Medical History Allergic rhinitis Cauda equina syndrome Constipation Diabetes Dyslipidemia (high LDL; low HDL) GERD (gastroesophageal reflux disease) Gout Hx of testicular cancer Hypertension Hypothyroidism Lumbar disc disease Lumbar disc herniation with radiculopathy Lumbar pain with radiation down both legs Osteoarthritis Spinal stenosis, lumbar region with neurogenic claudication Urinary retention Surgical History Hx of lumbosacral spine surgery Hx of total hip arthroplasty S/P orchiopexy 1975 Family History Father Lung cancer Cancer brain Mother Diabetes Uncle Prostate cancer Grandmother (Paternal) Stroke Family/Other Colorectal cancer Breast cancer Myocardial infarction Grandfather (Maternal) Rheumatoid arthritis Denies family history of Ovarian cancer Social History Smoking Status: Unknown if ever smoked Tobacco Type: Cigarettes Age Quit Using Tobacco: 65; packs per day: 0.5; Years Smoked: 24; Cigarettes Per Day: just a few per week; Second Hand Exposure: No; Hx Alcohol Use: No Hx Substance Use: No Preferred Language: Syriac Communication Ability: Effective Visual Impairment: Limited Hearing Ability: Normal Risk Control Field Representative Required: No Beliefs That Will Affect Care: None marital status: Current Living Situation: Spouse current occupational status: retired How many Children do You have: 2 How many Children do You have Comment: live local, children and able to help with care as needed. Other Information That Helps Us Care for You: No Feels Safe at Home: Yes Safety Concerns: Feels Safe At This Time Childhood Exposure to Second-Hand Smoke: No Diet Comment: eats what he wants to , has tried to start eating "healthier" caffeine: Yes during the past year weight has: decreased > 10 lbs Dental Care, Regularly: No Physical Activity Frequency: Other Physical Activity Frequency Comment: house chores Seatbelt Use: never Sunscreen Use: No Assistive Devices: Denture - Upper, Glasses, Walker and Wheelchair Allergies Allergies Allergy/AdvReac Type Severity Reaction Status Date / Time Penicillins Allergy Intermediate HIGH Verified 04/24/21 15:09 FEVER, RASH (NOTED ALLERGIC TO "ANY-CILLIN" bee pollen Allergy Unknown Unknown Verified 04/24/21 15:09 Home Meds Home Medications Medication Instructions Recorded Confirmed glucosamine 750 [id number] 1 tab PO BID 10/22/18 04/24/21 no1 644 mg-C 30 mg-fabio 1 mg tablet (Osteo Bi-Flex Triple Strength) acetaminophen 325 mg tablet 650 mg PO Q4 PRN 02/01/21 04/24/21 atorvastatin 40 mg tablet 40 mg PO HS 02/01/21 04/24/21 loratadine 10 mg tablet 10 mg PO DAILY 02/01/21 04/24/21 polyethylene glycol 3350 17 gram 17 g PO QDL PRN 02/01/21 04/24/21 oral powder packet (Miralax) psyllium 1 packet PO DAILY 02/01/21 04/24/21 sennosides 8.6 mg-docusate sodium 1 tab PO QDL PRN 02/01/21 04/24/21 50 mg tablet (Senokot-S) omeprazole 20 mg capsule,delayed 20 mg PO DAILY 02/26/21 04/24/21 release apixaban 5 mg tablet 5 mg PO BID 02/28/21 04/24/21 docusate sodium 100 mg tablet 100 mg PO BID 02/28/21 04/24/21 fluticasone propionate 50 1 spray INTRANASAL BID PRN 02/28/21 04/24/21 mcg/actuation nasal spray,suspension gabapentin 300 mg capsule 300 mg PO TID cap 04/05/21 04/24/21 Previous Rx's Medication Instructions Recorded allopurinol 300 mg tablet 300 mg PO DAILY #90 tab 07/26/20 famotidine 40 mg tablet 40 mg PO HS #90 tab 11/15/20 metformin 1,000 mg tablet 1,000 mg PO BID #180 tab 01/10/21 glimepiride 2 mg tablet 2 mg PO DAILY #90 tab 02/07/21 tamsulosin 0.4 mg capsule 0.4 mg PO HS #30 cap 02/08/21 diaper,brief,adult,disposable #126 ea 03/07/21 levothyroxine 112 mcg tablet 112 mcg PO DAILY #30 tab 03/16/21 Roho Cushion #1 ea 03/17/21 furosemide 20 mg tablet (Lasix) 20 mg PO DAILY PRN #30 tab 04/05/21 Results & Data (ED) Vital Signs Vital Signs - 24 hr 04/24/21 11:43 04/24/21 13:53 04/24/21 14:21 Temperature 36.5 C 36.8 C Temperature Source Temporal Artery Scan Oral Pulse Rate 113 H 108 H Pulse Rate [Apical] 109 H Pulse Rate from SpO2 Sensor 109 H Pulse Rhythm Regular Pulse Rhythm [Apical] Regular Pulse Strength Normal Pulse Strength [Apical] Normal Respiratory Rate 20 20 18 Respiratory Effort / Characteristics Non-Labored Non-Labored Spontaneous Respiratory Depth Normal Normal Respiratory Pattern Regular Regular Blood Pressure 118/79 139/92 Blood Pressure [Left Arm] 139/92 Blood Pressure Mean 92 107 Blood Pressure Mean [Left Arm] 107 Blood Pressure Position Sitting Blood Pressure Position [Left Arm] Sitting Pulse Oximetry 94 95 96 Oxygen Delivery Method Room Air Room Air Sepsis Recent Fever Within 48 Hours Yes Sepsis New/Unexplained Change in Mental Status N/A Sepsis Action Taken by Nursing No Action Required 04/24/21 14:22 04/24/21 16:10 04/24/21 16:35 Temperature Temperature Source Pulse Rate 115 H Pulse Rate [Apical] Pulse Rate from SpO2 Sensor 123 H Pulse Rhythm Pulse Rhythm [Apical] Pulse Strength Pulse Strength [Apical] Respiratory Rate 20 Respiratory Effort / Characteristics Respiratory Depth Respiratory Pattern Blood Pressure Blood Pressure [Left Arm] Blood Pressure Mean Blood Pressure Mean [Left Arm] Blood Pressure Position Blood Pressure Position [Left Arm] Pulse Oximetry 96 96 Oxygen Delivery Method Room Air Sepsis Recent Fever Within 48 Hours Sepsis New/Unexplained Change in Mental Status Sepsis Action Taken by Skilled Nursing Medications Current Medication List: was personally reviewed by me Laboratory Data Attestation: I reviewed the patient's lab results. Result diagrams: 04/24/21 13:35 04/24/21 13:35 Lab Results 04/24/21 04/24/21 04/24/21 Range/Units 13:35 13:35 13:35 WBC 16.58 H (4.8-10.8) K/uL RBC 4.72 (4.7-6.1) M/uL Hgb 14.4 (14.0-18.0) g/dL Hct 42.0 (42-52) % MCV 89.0 (80-100) fL MCH 30.5 (25-34) pg MCHC 34.3 (32-36) g/dL RDW Std Deviation 44.3 (36.4-46.3) fL RDW Coeff of Radha 13.5 (11.5-14.5) % Plt Count 274 (130-400) K/uL MPV 10.1 (7.4-10.4) fL Immature Gran % (Auto) 0.2 % Neut % (Auto) 80.6 % Lymph % (Auto) 9.8 % Stearns % (Auto) 9.2 % Eos % (Auto) 0.1 % Baso % (Auto) 0.1 % Neut # (Auto) 13.36 H (1.4-6.5) K/uL Lymph # (Auto) 1.62 (1.2-3.4) K/uL Stearns # (Auto) 1.53 H (0.11-0.59) K/uL Eos # (Auto) 0.01 (0-0.5) K/uL Baso # (Auto) 0.02 (0-0.2) K/uL Immature Gran # (Auto) 0.04 H (0.00-0.02) K/uL Sodium 132 L (136-145) mmol/L Potassium 4.2 (3.5-5.1) mmol/L Chloride 96 L (98-107) mmol/L Carbon Dioxide 29 (21-32) mmol/L Anion Gap 7.0 (3-11) BUN 15 (7-18) mg/dl Creatinine 1.11 (0.6-1.4) mg/dl Est Cr Clr Drug Dosing Not Reportable Est GFR ( Amer) 78.1 ml/min Est GFR (Non-Af Amer) 67.4 ml/min BUN/Creatinine Ratio 13.4 (10-20) Glucose 187 H (70-99) mg/dl Lactate (0.4-2.0) mmol/L Calcium 10.0 (8.5-10.1) mg/dl Total Bilirubin 1.0 (0.2-1) mg/dl AST 46 H (15-37) U/L ALT 29 (12-78) U/L Alkaline Phosphatase 98 (45-117) U/L Troponin I 4.610 H* (0-0.045) ng/ml Total Protein 8.3 H (6.4-8.2) gm/dl Albumin 3.3 L (3.4-5.0) gm/dl Globulin 5.0 H (2.5-4.0) gm/dl Albumin/Globulin Ratio 0.7 L (0.9-2) Urine Color Urine Appearance (Clear) Urine pH (4.5-7.5) Ur Specific Bronson (1.000-1.030) Urine Protein (Negative) Urine Glucose (UA) (Negative) Urine Ketones (Negative) Urine Blood (Negative) Urine Nitrite (Negative) Urine Bilirubin (Negative) Urine Urobilinogen (Negative) Ur Leukocyte Esterase (Negative) Urine WBC (Auto) (0-5) /hpf Urine RBC (Auto) (0-4) /hpf U Hyaline Cast (Auto) (0-5) /lpf U Epithel Cells (Auto) (0-5) /lpf Urine Bacteria (Auto) (Negative) COVID-19 Eval Order SARS-CoV-2 (PCR) (Negative) 04/24/21 04/24/21 04/24/21 Range/Units 14:15 15:09 15:32 WBC (4.8-10.8) K/uL RBC (4.7-6.1) M/uL Hgb (14.0-18.0) g/dL Hct (42-52) % MCV (80-100) fL MCH (25-34) pg MCHC (32-36) g/dL RDW Std Deviation (36.4-46.3) fL RDW Coeff of Radha (11.5-14.5) % Plt Count (130-400) K/uL MPV (7.4-10.4) fL Immature Gran % (Auto) % Neut % (Auto) % Lymph % (Auto) % Stearns % (Auto) % Eos % (Auto) % Baso % (Auto) % Neut # (Auto) (1.4-6.5) K/uL Lymph # (Auto) (1.2-3.4) K/uL Stearns # (Auto) (0.11-0.59) K/uL Eos # (Auto) (0-0.5) K/uL Baso # (Auto) (0-0.2) K/uL Immature Gran # (Auto) (0.00-0.02) K/uL Sodium (136-145) mmol/L Potassium (3.5-5.1) mmol/L Chloride (98-107) mmol/L Carbon Dioxide (21-32) mmol/L Anion Gap (3-11) BUN (7-18) mg/dl Creatinine (0.6-1.4) mg/dl Est Cr Clr Drug Dosing Est GFR ( Amer) ml/min Est GFR (Non-Af Amer) ml/min BUN/Creatinine Ratio (10-20) Glucose (70-99) mg/dl Lactate 2.9 H* (0.4-2.0) mmol/L Calcium (8.5-10.1) mg/dl Total Bilirubin (0.2-1) mg/dl AST (15-37) U/L ALT (12-78) U/L Alkaline Phosphatase (45-117) U/L Troponin I (0-0.045) ng/ml Total Protein (6.4-8.2) gm/dl Albumin (3.4-5.0) gm/dl Globulin (2.5-4.0) gm/dl Albumin/Globulin Ratio (0.9-2) Urine Color Dark Yellow Urine Appearance Turbid A (Clear) Urine pH 5.0 (4.5-7.5) Ur Specific Bronson 1.020 (1.000-1.030) Urine Protein 2+ H (Negative) Urine Glucose (UA) Negative (Negative) Urine Ketones Negative (Negative) Urine Blood 3+ H (Negative) Urine Nitrite Negative (Negative) Urine Bilirubin Negative (Negative) Urine Urobilinogen Negative (Negative) Ur Leukocyte Esterase 2+ H (Negative) Urine WBC (Auto) >30 H (0-5) /hpf Urine RBC (Auto) 10-30 H (0-4) /hpf U Hyaline Cast (Auto) 1-5 (0-5) /lpf U Epithel Cells (Auto) 0-5 (0-5) /lpf Urine Bacteria (Auto) 4+ H (Negative) COVID-19 Eval Order Covid19 at [facility] SARS-CoV-2 (PCR) (Negative) 04/24/21 04/24/21 Range/Units 15:32 16:17 WBC (4.8-10.8) K/uL RBC (4.7-6.1) M/uL Hgb (14.0-18.0) g/dL Hct (42-52) % MCV (80-100) fL MCH (25-34) pg MCHC (32-36) g/dL RDW Std Deviation (36.4-46.3) fL RDW Coeff of Radha (11.5-14.5) % Plt Count (130-400) K/uL MPV (7.4-10.4) fL Immature Gran % (Auto) % Neut % (Auto) % Lymph % (Auto) % Stearns % (Auto) % Eos % (Auto) % Baso % (Auto) % Neut # (Auto) (1.4-6.5) K/uL Lymph # (Auto) (1.2-3.4) K/uL Stearns # (Auto) (0.11-0.59) K/uL Eos # (Auto) (0-0.5) K/uL Baso # (Auto) (0-0.2) K/uL Immature Gran # (Auto) (0.00-0.02) K/uL Sodium (136-145) mmol/L Potassium (3.5-5.1) mmol/L Chloride (98-107) mmol/L Carbon Dioxide (21-32) mmol/L Anion Gap (3-11) BUN (7-18) mg/dl Creatinine (0.6-1.4) mg/dl Est Cr Clr Drug Dosing Est GFR ( Amer) ml/min Est GFR (Non-Af Amer) ml/min BUN/Creatinine Ratio (10-20) Glucose (70-99) mg/dl Lactate 3.3 H* (0.4-2.0) mmol/L Calcium (8.5-10.1) mg/dl Total Bilirubin (0.2-1) mg/dl AST (15-37) U/L ALT (12-78) U/L Alkaline Phosphatase (45-117) U/L Troponin I (0-0.045) ng/ml Total Protein (6.4-8.2) gm/dl Albumin (3.4-5.0) gm/dl Globulin (2.5-4.0) gm/dl Albumin/Globulin Ratio (0.9-2) Urine Color Urine Appearance (Clear) Urine pH (4.5-7.5) Ur Specific Bronson (1.000-1.030) Urine Protein (Negative) Urine Glucose (UA) (Negative) Urine Ketones (Negative) Urine Blood (Negative) Urine Nitrite (Negative) Urine Bilirubin (Negative) Urine Urobilinogen (Negative) Ur Leukocyte Esterase (Negative) Urine WBC (Auto) (0-5) /hpf Urine RBC (Auto) (0-4) /hpf U Hyaline Cast (Auto) (0-5) /lpf U Epithel Cells (Auto) (0-5) /lpf Urine Bacteria (Auto) (Negative) COVID-19 Eval Order SARS-CoV-2 (PCR) NEGATIVE (Negative) Administered Medications Sodium Chloride (Nss 1000ml) 1,000 mls @ 125 mls/hr IV .Q8H NOAH Stop: 04/25/21 08:14 Last Admin: 04/24/21 19:54 Dose: 125 mls/hr Documented by: [id number] Discontinued Medications Gabapentin (Gabapentin 300 Mg Cap) 300 mg PO ONCE ONE Stop: 04/24/21 16:17 Last Admin: 04/24/21 17:38 Dose: 300 mg Documented by: [id number] Heparin Sodium/Dextrose (Heparin Iv Adult Wt-Based Standard *No* Bolus Protocol) 1 ea IV ONE ONE; Protocol Stop: 04/24/21 15:56 Last Admin: 04/24/21 16:42 Dose: 1 ea Documented by: [id number] Sodium Chloride (Nss) 500 mls @ 999 mls/hr IV .Q31M ONE Stop: 04/24/21 15:03 Last Infusion: 04/24/21 15:26 Dose: 0 mls/hr Documented by: [id number] Admin: 04/24/21 14:54 Dose: 999 mls/hr Documented by: [id number] Ceftriaxone Sodium (Rocephin) 2,000 mg in 70 mls @ 140 mls/hr IV NOW STA Stop: 04/24/21 15:27 Last Infusion: 04/24/21 16:10 Dose: 0 mls/hr Documented by: [id number] Admin: 04/24/21 15:38 Dose: 140 mls/hr Documented by: [id number] Sodium Chloride (Nss 1000ml) 1,000 mls @ 999 mls/hr IV .Q1H1M ONE Stop: 04/24/21 16:09 Last Infusion: 04/24/21 17:21 Dose: 0 mls/hr Documented by: [id number] Admin: 04/24/21 15:38 Dose: 999 mls/hr Documented by: [id number] Heparin Sodium/Dextrose (Heparin Sodium/Dextrose) 25,000 units in 500 mls @ 28 mls/hr IV .S30P16L [facility]; Protocol Stop: 05/24/21 16:14 Last Admin: 04/24/21 16:40 Dose: 1,400 units/hr, 28 mls/hr Documented by: [id number] Cosigned by: [id number] Sodium Chloride (Nss 1000ml) 1,000 mls @ 999 mls/hr IV .Q1H1M ONE Stop: 04/24/21 17:01 Last Admin: 04/24/21 17:19 Dose: 999 mls/hr Documented by: [id number] Ioversol (Optiray 320 125ml) 120 ml IV ONCE ONE Stop: 04/24/21 16:25 Last Admin: 04/24/21 16:24 Dose: 120 ml Documented by: [id number] Imaging Data Radiologist's Impression: Chest X-Ray 04/24/21 11:59 XR chest 1V portable CLINICAL HISTORY: Fever COMPARISON STUDY: February 26, 2021 FINDINGS: No pneumothorax. No pleural effusion. Lung volumes are decreased with crowded lung markings. Diffuse prominence of pulmonary interstitium is slightly worsened since prior with questionable superimposed airspace component within the right lower lobe. Cardiomediastinal silhouette is within normal limits in size. No significant pulmonary vascular congestion.. Osseous structures: Degenerative changes of the spine. IMPRESSION: 1. Possible infiltrative process within the right lower lung. Limited exam due to low inspiratory effort. ACT 112: Negative or not required by law. The above report was generated using voice recognition software. It may contain grammatical, syntax or spelling errors. Electronically signed by: Pat Pinto DO 04/24/2021 3:03 PM Abdomen/Pelvis CT 04/24/21 15:55 CT ANGIOGRAM OF THE CHEST; CT SCAN OF THE ABDOMEN AND PELVIS WITH IV CONTRAST CLINICAL HISTORY: Dyspnea. Fever. Nausea and vomiting. COMPARISON STUDY: Chest CT dated 01/23/2021. Abdominal CT dated 02/26/2021. TECHNIQUE: Following the IV administration of 120 of Optiray 320, CT angiogram of the chest is performed from the upper abdomen to the thoracic inlet utilizing the pulmonary embolus protocol. Images are reviewed in the axial, sagittal, c oronal planes. 3-D MIPS images are created and assessed. Subsequently, CT scan of the abdomen and pelvis was performed from the lung bases to the proximal femora. Images are reviewed in the axial, sagittal, and coronal planes. IV contrast was administered without complication. A dose lowering technique was utilized adhering to the principles of ALARA. CT DOSE: 1291.92 mGy.cm FINDINGS: CHEST: Thyroid: Imaged portions of the thyroid gland are normal in size and attenuation. Thoracic aorta: There is mild atherosclerotic calcification of the thoracic aorta, which is normal in caliber and demonstrates standard 3-vessel arch anatomy. No dissection is seen. Pulmonary vasculature: The pulmonary trunk is dilated, measuring 3.5 cm in diameter. This suggests pulmonary artery hypertension. There are no filling defects identified in the main, lobar, or segmental pulmonary arteries to indicate pulmonary embolus. Heart: The heart is top normal in size and without pericardial effusion. The coronary arteries are densely calcified. Lungs and pleural spaces: Evaluation of the lung parenchyma is modestly degraded by motion artifact. There is no airspace consolidation typical for pneumonia or pleural effusion. Scarring/atelectasis is noted at the lung bases. The trachea and central airways are clear. Mediastinum: There is no mediastinal lymphadenopathy. Deanne: Clear. Axillae: There is no axillary lymphadenopathy. Bony thorax: The skeletal structures are osteopenic. There are mild superior endplate compression deformities of T4 and T11. No lytic or blastic lesions are identified. ABDOMEN AND PELVIS: Liver: The contrast-enhanced liver is enlarged, measuring 21.5 cm in length. The liver is otherwise normal in contour and attenuation. There is no intrahepatic or ductal dilatation. The hepatic veins and portal veins are patent. Gallbladder: The gallbladder is distended. Spleen: Normal in size and attenuation. Pancreas: Unremarkable. Adrenal glands: Unremarkable. Kidneys: The contrast enhanced kidneys are normal in size and without hydronephrosis. There is mild fullness of the right renal collecting system. Urothelial thickening and enhancement is seen involving the right renal pelvis and the right ureter with surrounding inflammation. There is heterogeneous enhancement of the right kidney as compared to left. No organized fluid collection is seen suggest abscess. A circumaortic left renal vein is incidentally noted. Abdominal vasculature: The abdominal aorta is normal in course and caliber noting moderate to advanced atherosclerotic calcification. Stomach and bowel: A small hiatal hernia is noted. There is moderate cons tipation. No bowel obstruction is seen. There are scattered colonic diverticula without CT evidence of acute diverticulitis. The appendix is well-visualized and normal. Focal rectal wall thickening is again suggested on image #[id number]. Peritoneum: There is no intraperitoneal free air or abdominal ascites. There is a fat-containing umbilical hernia. Lymphadenopathy: None. Pelvic viscera: Evaluation of the pelvis is significantly degraded by streak artifact from bilateral hip arthroplasties. The bladder wall is markedly t hickened and hyperemic. There is pericystic inflammation. The prostate gland is mildly enlarged and heterogeneous. This is not well assessed due to streak artifact. There are bilateral fat-containing inguinal hernias. Skeletal structures: The skeletal structures are osteopenic. There is lumbosacral spondylosis with postoperative change from L4-L5 spinal fusion. No lytic or blastic lesions are seen. Bilateral hip arthroplasties are in place. IMPRESSION: 1. There is no evidence of pulmonary embolus in the main, lobar, or segmental pulmonary arteries. 2. There is no airspace consolidation or pleural effusion. 3. There is evidence of cystitis with ascending urinary tract infection/pyelonephritis on the right. Correlate with clinical findings and urin alysis. 4. No organized fluid collection is seen to suggest abscess. 5. Hepatomegaly. 6. Moderate constipation. 7. Focal rectal wall thickening is again suggested. If not already performed, nonemergent GI follow-up is recommended. 8. Additional findings as above. ACT 112: Negative or not required by law. Electronically signed by: Morris Coburn M.D. 04/24/2021 4:52 PM Chest CTA 04/24/21 15:55 CT ANGIOGRAM OF THE CHEST; CT SCAN OF THE ABDOMEN AND PELVIS WITH IV CONTRAST CLINICAL HISTORY: Dyspnea. Fever. Nausea and vomiting. COMPARISON STUDY: Chest CT dated 01/23/2021. Abdominal CT dated 02/26/2021. TECHNIQUE: Following the IV administration of 120 of Optiray 320, CT angiogram of the chest is performed from the upper abdomen to the thoracic inlet utilizing the pulmonary embolus protocol. Images are reviewed in the axial, sagittal, coronal planes. 3-D MIPS images are created and assessed. Subsequently, CT scan of the abdomen and pelvis was performed from the lung bases to the proximal femora. Images are reviewed in the axial, sagittal, and coronal planes. IV contrast was administered without complication. A dose lowering technique was utilized adhering to the principles of ALARA. CT DOSE: 1291.92 mGy.cm FINDINGS: CHEST: Thyroid: Imaged portions of the thyroid gland are normal in size and attenuation. Thoracic aorta: There is mild atherosclerotic calcification of the thoracic aorta, which is normal in caliber and demonstrates standard 3-vessel arch anatomy. No dissection is seen. Pulmonary vasculature: The pulmonary trunk is dilated, measuring 3.5 cm in diameter. This suggests pulmonary artery hypertension. There are no filling defects identified in the main, lobar, or segmental pulmonary arteries to indicate pulmonary embolus. Heart: The heart is top normal in size and without pericardial effusion. The coronary arteries are densely calcified. Lungs and pleural spaces: Evaluation of the lung parenchyma is modestly degraded by motion artifact. There is no airspace consolidation typical for pneumonia or pleural effusion. Scarring/atelectasis is noted at the lung bases. The trachea and central airways are clear. Mediastinum: There is no mediastinal lymphadenopathy. Deanne: Clear. Axillae: There is no axillary lymphadenopathy. Bony thorax: The skeletal structures are osteopenic. There are mild superior endplate compression deformities of T4 and T11. No lytic or blastic lesions are identified. ABDOMEN AND PELVIS: Liver: The contrast-enhanced liver is enlarged, measuring 21.5 cm in length. The liver is otherwise normal in contour and attenuation. There is no intrahepatic or ductal dilatation. The hepatic veins and portal veins are patent. Gallbladder: The gallbladder is distended. Spleen: Normal in size and attenuation. Pancreas: Unremarkable. Adrenal glands: Unremarkable. Kidneys: The contrast enhanced kidneys are normal in size and without hydronephrosis. There is mild fullness of the right renal collecting system. Urothelial thickening and enhancement is seen involving the right renal pelvis and the right ureter with surrounding inflammation. There is heterogeneous enh ancement of the right kidney as compared to left. No organized fluid collection is seen suggest abscess. A circumaortic left renal vein is incidentally noted. Abdominal vasculature: The abdominal aorta is normal in course and caliber noting moderate to advanced atherosclerotic calcification. Stomach and bowel: A small hiatal hernia is noted. There is moderate constipation. No bowel obstruction is seen. There are scattered colonic diverticula without CT evidence of acute diverticulitis. The appendix is well- visualized and normal. Focal rectal wall thickening is again suggested on image #[id number]. Peritoneum: There is no intraperitoneal free air or abdominal ascites. There is a fat-containing umbilical hernia. Lymphadenopathy: None. Pelvic viscera: Evaluation of the pelvis is significantly degraded by streak artifact from bilateral hip arthroplasties. The bladder wall is markedly thickened and hyperemic. There is pericystic inflammation. The prostate gland is mildly enlarged and heterogeneous. This is not well assessed due to streak artifact. There are bilateral fat-containing inguinal hernias. Skeletal structures: The skeletal structures are osteopenic. There is lumbosacral spondylosis with postoperative change from L4-L5 spinal fusion. No lytic or blastic lesions are seen. Bilateral hip arthroplasties are in place. IMPRESSION: 1. There is no evidence of pulmonary embolus in the main, lobar, or segmental pulmonary arteries. 2. There is no airspace consolidation or pleural effusion. 3. There is evidence of cystitis with ascending urinary tract infection/pyelonephritis on the right. Correlate with clinical findings and urinalysis. 4. No organized fluid collection is seen to suggest abscess. 5. Hepatomegaly. 6. Moderate constipation. 7. Focal rectal wall thickening is again suggested. If not already performed, nonemergent GI follow-up is recommended. 8. Additional findings as above. ACT 112: Negative or not required by law. Electronically signed by: Morris Coburn M.D. 04/24/2021 4:52 PM Discharge Plan Visit Data Chief Complaint: Fever Stated Complaint: FEVER ED Provider: Lino Barajas ED Midlevel Provider: Jass York Discharge Problem: Acute non-ST elevation myocardial infarction (NSTEMI), Acute pyelonephritis, Catheter-associated urinary tract infection, Abnormal EKG Patient Disposition: Admitted As Inpatient Condition: Good Discharge Instructions Interventions: ED Discharge Assessment Last Done: 04/24/21 19:08
[2021-04-24] MEDS ORDERED: Heparin IV Adult Wt-Based Standard *NO* Bolus Protocol IV ONE (15:55)
[2021-04-24] MEDS ORDERED: HEPARIN SODIUM/DEXTROSE 25,000 UNITS/500 ML BAG IV SCH (16:15)
[2021-04-24] MEDS ORDERED: GABAPENTIN 300 MG CAP PO ONE (16:16)
[2021-04-24] MEDS ORDERED: OPTIRAY 320 125ml IV ONE (16:24)
--- NOTE | 2021-04-24 16:43 | History & Physical Report ---
Date of Service April 24, 2021 Assessment & Plan (1) Catheter-associated urinary tract infection: Plan: Patient has CAUTI, present on admission secondary to self cath Admit to a monitored bed Patient was given Rocephin in the emergency room, okay to continue this pending culture results Blood cultures (2) Pulmonary embolus: Plan: Patient has recent diagnosis of a right upper lobe pulmonary embolus He is on Eliquis 5 mg twice daily for this This may account for EKG changes but elevated troponin is concerning As patient has been unable to tolerate his medication, would start heparin drip for elevated troponin (3) Troponin level elevated: Plan: Start heparin drip as noted above Continue to trend troponins Check 2D echo I will ask cardiology to evaluate for further recommendations Check fasting lipid panel (4) Diabetes: Plan: Patient is on Metformin, will hold this for now until chest pain is fully worked up Sliding scale insulin Check hemoglobin A1c (5) Cauda equina compression: Plan: Patient is a history of spinal injury causing chronic urinary retention Continue gabapentin Self cath as needed History of Present Illness Chief Complaint: Fever Primary Care Provider: Liz Kirby DO This is a 70-year-old male with past medical history spinal cord injury, urinary retention that self catheterizes presents complaining of fever. Patient is in some distress when I first met him, at bedside provides some history. Patient notes that over the past 48 hours he has had significant chills, fevers, and rigors. He has had nausea and vomiting has not been able to hold down any liquids or solids nor has been able to take his medications. He typically self catheterizes without issue but he has noticed that the urine coming out is cloudy and now has a foul odor. His main distress while I was visiting was at his lower extremities. He tells me he has spasm type pain which is attributed to neuropathy. He typically takes gabapentin for this but has not had his medications in a day and a half. Work-up in the emergency room revealed the patient has a urinary tract infection. Of additional concern patient had an initial troponin of over 4. EKG showed inverted T waves V4-6, not present on previous tracing. Patient is now being admitted for further work-up of these issues. Allergies Allergy/AdvReac Type Severity Reaction Status Date / Time Penicillins Allergy Intermediate HIGH Verified 04/24/21 15:09 FEVER, RASH (NOTED ALLERGIC TO "ANY-CILLIN" bee pollen Allergy Unknown Unknown Verified 04/24/21 15:09 Home Medications Medication Instructions Recorded Confirmed Type glucosamine 750 [id number] 1 tab PO BID 10/22/18 04/24/21 History no1 644 mg-C 30 mg-fabio 1 mg tablet (Osteo Bi-Flex Triple Strength) allopurinol 300 mg tablet 300 mg PO DAILY #90 tab 07/26/20 04/24/21 Rx famotidine 40 mg tablet 40 mg PO HS #90 tab 11/15/20 04/24/21 Rx metformin 1,000 mg tablet 1,000 mg PO BID #180 tab 01/10/21 04/24/21 Rx acetaminophen 325 mg tablet 650 mg PO Q4 PRN 02/01/21 04/24/21 History atorvastatin 40 mg tablet 40 mg PO HS 02/01/21 04/24/21 History loratadine 10 mg tablet 10 mg PO DAILY 02/01/21 04/24/21 History polyethylene glycol 3350 17 gram 17 g PO QDL PRN 02/01/21 04/24/21 History oral powder packet (Miralax) psyllium 1 packet PO DAILY 02/01/21 04/24/21 History sennosides 8.6 mg-docusate sodium 1 tab PO QDL PRN 02/01/21 04/24/21 History 50 mg tablet (Senokot-S) glimepiride 2 mg tablet 2 mg PO DAILY #90 tab 02/07/21 04/24/21 Rx tamsulosin 0.4 mg capsule 0.4 mg PO HS #30 cap 02/08/21 04/24/21 Rx omeprazole 20 mg capsule,delayed 20 mg PO DAILY 02/26/21 04/24/21 History release apixaban 5 mg tablet 5 mg PO BID 02/28/21 04/24/21 History docusate sodium 100 mg tablet 100 mg PO BID 02/28/21 04/24/21 History fluticasone propionate 50 1 spray INTRANASAL BID PRN 02/28/21 04/24/21 History mcg/actuation nasal spray,suspension diaper,brief,adult,disposable #126 ea 03/07/21 04/19/21 Rx levothyroxine 112 mcg tablet 112 mcg PO DAILY #30 tab 03/16/21 04/24/21 Rx Roho Cushion #1 ea 03/17/21 04/19/21 Rx furosemide 20 mg tablet (Lasix) 20 mg PO DAILY PRN #30 tab 04/05/21 04/24/21 Rx gabapentin 300 mg capsule 300 mg PO TID cap 04/05/21 04/24/21 History Past Med/Surg History Medical History Allergic rhinitis Cauda equina syndrome Constipation Diabetes Dyslipidemia (high LDL; low HDL) GERD (gastroesophageal reflux disease) Gout Hx of testicular cancer Hypertension Hypothyroidism Lumbar disc disease Lumbar disc herniation with radiculopathy Lumbar pain with radiation down both legs Osteoarthritis Spinal stenosis, lumbar region with neurogenic claudication Urinary retention Surgical History Hx of lumbosacral spine surgery Hx of total hip arthroplasty S/P orchiopexy 1975 Family History Father Lung cancer Cancer brain Mother Diabetes Uncle Prostate cancer Grandmother (Paternal) Stroke Family/Other Colorectal cancer Breast cancer Myocardial infarction Grandfather (Maternal) Rheumatoid arthritis Denies family history of Ovarian cancer Social History Smoking Status: Former smoker Tobacco Type: Cigarettes Age Quit Using Tobacco: 65; packs per day: 0.5; Years Smoked: 24; Cigarettes Per Day: just a few per week; Second Hand Exposure: No; Hx Alcohol Use: No Hx Substance Use: No Preferred Language: German Communication Ability: Effective Visual Impairment: Limited Hearing Ability: Normal 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 Feels Safe at Home: Yes Childhood Exposure to Second-Hand Smoke: No Diet Comment: eats what he wants to , has tried to start eating "healthier" caffeine: Yes during the past year weight has: decreased > 10 lbs Dental Care, Regularly: No Physical Activity Frequency: Other Physical Activity Frequency Comment: house chores Seatbelt Use: never Sunscreen Use: No Assistive Devices: Brace/Splint/Immobilizer, Special Shoe and Walker Review of Systems Constitutional: + fever, + chills and + weakness; no weight loss and no weight gain Eyes: as per Subjective / HPI Respiratory: no cough, no chest congestion, no dyspnea and no dyspnea on exertion Cardiovascular: no chest pain, no orthopnea, no palpitations, no lighthea dedness and no edema Gastrointestinal: + nausea and + vomiting; no abdominal pain, no constipation and no diarrhea/loose stools Musculoskeletal: + back pain, + joint pain and + problem reported; no neck pain, no stiffness and no myalgia Integumentary: no rash Neurologic: no gait abnormality, no unsteadiness, no falls and no generalized weakness Physical Exam Constitutional: cooperative Neck: trachea midline, no thyromegaly Respiratory: normal respiratory effort Auscultation: lungs clear to auscultation bilaterally; no crackles, no rales, no rhonchi and no wheezes Cardiovascular: Rate/Rhythm: regular rate and regular rhythm Heart Sounds: normal S1 and normal S2 Gastrointestinal (Abdomen): Inspection/Auscultation: abdomen normal to inspection Percussion/Palpation: abdomen soft; abdomen nontender, no guarding, abdomen not rigid and no hepatosplenomegaly Skin: no rashes, warm and dry Results & Data Results & Data ([facility]) Vital Signs (Past 12 Hours) Vital Signs Temp Pulse Pulse Resp BP BP Pulse Ox 04/24/21 14:22 96 04/24/21 14:21 36.8 C 109 H 18 139/92 96 04/24/21 13:53 108 H 20 139/92 95 04/24/21 11:43 36.5 C 113 H 20 118/79 94 Laboratory Results Laboratory Results WBC 16.58 K/uL (4.8-10.8) H 04/24/21 13:35 RBC 4.72 M/uL (4.7-6.1) 04/24/21 13:35 Hgb 14.4 g/dL (14.0-18.0) 04/24/21 13:35 Hct 42.0 % (42-52) 04/24/21 13:35 MCV 89.0 fL (80-100) 04/24/21 13:35 MCH 30.5 pg (25-34) 04/24/21 13:35 MCHC 34.3 g/dL (32-36) 04/24/21 13:35 RDW Std Deviation 44.3 fL (36.4-46.3) 04/24/21 13:35 RDW Coeff of Radha 13.5 % (11.5-14.5) 04/24/21 13:35 Plt Count 274 K/uL (130-400) 04/24/21 13:35 MPV 10.1 fL (7.4-10.4) 04/24/21 13:35 Immature Gran % (Auto) 0.2 % 04/24/21 13:35 Neut % (Auto) 80.6 % 04/24/21 13:35 Lymph % (Auto) 9.8 % 04/24/21 13:35 Rowan % (Auto) 9.2 % 04/24/21 13:35 Eos % (Auto) 0.1 % 04/24/21 13:35 Baso % (Auto) 0.1 % 04/24/21 13:35 Neut # (Auto) 13.36 K/uL (1.4-6.5) H 04/24/21 13:35 Lymph # (Auto) 1.62 K/uL (1.2-3.4) 04/24/21 13:35 Rowan # (Auto) 1.53 K/uL (0.11-0.59) H 04/24/21 13:35 Eos # (Auto) 0.01 K/uL (0-0.5) 04/24/21 13:35 Baso # (Auto) 0.02 K/uL (0-0.2) 04/24/21 13:35 Immature Gran # (Auto) 0.04 K/uL (0.00-0.02) H 04/24/21 13:35 Sodium 132 mmol/L (136-145) L 04/24/21 13:35 Potassium 4.2 mmol/L (3.5-5.1) 04/24/21 13:35 Chloride 96 mmol/L (98-107) L 04/24/21 13:35 Carbon Dioxide 29 mmol/L (21-32) 04/24/21 13:35 Anion Gap 7.0 (3-11) 04/24/21 13:35 BUN 15 mg/dl (7-18) 04/24/21 13:35 Creatinine 1.11 mg/dl (0.6-1.4) 04/24/21 13:35 Est Cr Clr Drug Dosing Not Reportable 04/24/21 13:35 Est GFR ( Amer) 78.1 ml/min 04/24/21 13:35 Est GFR (Non-Af Amer) 67.4 ml/min 04/24/21 13:35 BUN/Creatinine Ratio 13.4 (10-20) 04/24/21 13:35 Glucose 187 mg/dl (70-99) H 04/24/21 13:35 Lactate 2.9 mmol/L (0.4-2.0) H* 04/24/21 15:09 Calcium 10.0 mg/dl (8.5-10.1) 04/24/21 13:35 Total Bilirubin 1.0 mg/dl (0.2-1) 04/24/21 13:35 AST 46 U/L (15-37) H 04/24/21 13:35 ALT 29 U/L (12-78) 04/24/21 13:35 Alkaline Phosphatase 98 U/L (45-117) 04/24/21 13:35 Troponin I 4.610 ng/ml (0-0.045) H* 04/24/21 13:35 Total Protein 8.3 gm/dl (6.4-8.2) H 04/24/21 13:35 Albumin 3.3 gm/dl (3.4-5.0) L 04/24/21 13:35 Globulin 5.0 gm/dl (2.5-4.0) H 04/24/21 13:35 Albumin/Globulin Ratio 0.7 (0.9-2) L 04/24/21 13:35 Urine Color Dark Yellow 04/24/21 14:15 Urine Appearance Turbid (Clear) A 04/24/21 14:15 Urine pH 5.0 (4.5-7.5) 04/24/21 14:15 Ur Specific [place] 1.020 (1.000-1.030) 04/24/21 14:15 Urine Protein 2+ (Negative) H 04/24/21 14:15 Urine Glucose (UA) Negative (Negative) 04/24/21 14:15 Urine Ketones Negative (Negative) 04/24/21 14:15 Urine Blood 3+ (Negative) H 04/24/21 14:15 Urine Nitrite Negative (Negative) 04/24/21 14:15 Urine Bilirubin Negative (Negative) 04/24/21 14:15 Urine Urobilinogen Negative (Negative) 04/24/21 14:15 Ur Leukocyte Esterase 2+ (Negative) H 04/24/21 14:15 Urine WBC (Auto) >30 /hpf (0-5) H 04/24/21 14:15 Urine RBC (Auto) 10-30 /hpf (0-4) H 04/24/21 14:15 U Hyaline Cast (Auto) 1-5 /lpf (0-5) 04/24/21 14:15 U Epithel Cells (Auto) 0-5 /lpf (0-5) 04/24/21 14:15 Urine Bacteria (Auto) 4+ (Negative) H 04/24/21 14:15 COVID-19 Eval Order Covid19 at [facility] 04/24/21 15:32 Impressions Chest X-Ray 04/24/21 11:59 XR chest 1V portable CLINICAL HISTORY: Fever COMPARISON STUDY: February 26, 2021 FINDINGS: No pneumothorax. No pleural effusion. Lung volumes are decreased with crowded lung markings. Diffuse prominence of pulmonary interstitium is slightly worsened since prior with questionable superimposed airspace component within the right lower lobe. Cardiomediastinal silhouette is within normal limits in size. No significant pulmonary vascular congestion.. Osseous structures: Degenerative changes of the spine. IMPRESSION: 1. Possible infiltrative process within the right lower lung. Limited exam due to low inspiratory effort. ACT 112: Negative or not required by law. The above report was generated using voice recognition software. It may contain grammatical, syntax or spelling errors. Electronically signed by: Pat Pinto DO 04/24/2021 3:03 PM PG Care Time/CCT Total # of Minutes Spent Total Time Spent with Patient: Total time spent is greater than 50% in coordination of care (as documented) at patient's floor/unit and/or counseling patient: Coding Level of Care Code 86701 Initial Inpt Care Lvl 3 Diagnoses Catheter-associated urinary tract infection T83.511A; N39.0 Encounter type: initial encounter Indwelling urinary catheter type: unspecified Diabetes E11.9 Pulmonary embolus I26.99 Cauda equina compression G83.4 Troponin level elevated R77.8 (1) Catheter-associated urinary tract infection Encounter type: initial encounter Indwelling urinary catheter type: unspecified Qualified Code(s): T83.511A - Infection and inflammatory reaction due to indwelling urethral catheter, initial encounter; N39.0 - Urinary tract infection, site not specified
--- NOTE | 2021-04-24 16:53 | CT Scan Report ---
CT ANGIOGRAM OF THE CHEST; CT SCAN OF THE ABDOMEN AND PELVIS WITH IV CONTRAST CLINICAL HISTORY: Dyspnea. Fever. Nausea and vomiting. COMPARISON STUDY: Chest CT dated 01/23/2021. Abdominal CT dated 02/26/2021. TECHNIQUE: Following the IV administration of 120 of Optiray 320, CT angiogram of the chest is perfor med from the upper abdomen to the thoracic inlet utilizing the pulmonary embolus protocol. Images are reviewed in the axial, sagittal, coronal planes. 3-D MIPS images are created and assessed. Subsequen tly, CT scan of the abdomen and pelvis was performed from the lung bases to the proximal femora. Imag es are reviewed in the axial, sagittal, and coronal planes. IV contrast was administered without comp lication. A dose lowering technique was utilized adhering to the principles of ALARA. CT DOSE: 1291.92 mGy.cm FINDINGS: CHEST: Thyroid: Imaged portions of the thyroid gland are normal in size and attenuation. Thoracic aorta: There is mild atherosclerotic calcification of the thoracic aorta, which is normal in caliber and demonstrates standard 3-vessel arch anatomy. No dissection is seen. Pulmonary vasculature: The pulmonary trunk is dilated, measuring 3.5 cm in diameter. This suggests pu lmonary artery hypertension. There are no filling defects identified in the main, lobar, or segmental pulmonary arteries to indicate pulmonary embolus. Heart: The heart is top normal in size and without pericardial effusion. The coronary arteries are de nsely calcified. Lungs and pleural spaces: Evaluation of the lung parenchyma is modestly degraded by motion artifact. There is no airspace consolidation typical for pneumonia or pleural effusion. Scarring/atelectasis is noted at the lung bases. The trachea and central airways are clear. Mediastinum: There is no mediastinal lymphadenopathy. Deanne: Clear. Axillae: There is no axillary lymphadenopathy. Bony thorax: The skeletal structures are osteopenic. There are mild superior endplate compression def ormities of T4 and T11. No lytic or blastic lesions are identified. ABDOMEN AND PELVIS: Liver: The contrast-enhanced liver is enlarged, measuring 21.5 cm in length. The liver is otherwise n ormal in contour and attenuation. There is no intrahepatic or ductal dilatation. The hepatic veins an d portal veins are patent. Gallbladder: The gallbladder is distended. Spleen: Normal in size and attenuation. Pancreas: Unremarkable. Adrenal glands: Unremarkable. Kidneys: The contrast enhanced kidneys are normal in size and without hydronephrosis. There is mild f ullness of the right renal collecting system. Urothelial thickening and enhancement is seen involving the right renal pelvis and the right ureter with surrounding inflammation. There is heterogeneous en hancement of the right kidney as compared to left. No organized fluid collection is seen suggest absc ess. A circumaortic left renal vein is incidentally noted. Abdominal vasculature: The abdominal aorta is normal in course and caliber noting moderate to advance d atherosclerotic calcification. Stomach and bowel: A small hiatal hernia is noted. There is moderate constipation. No bowel obstructi on is seen. There are scattered colonic diverticula without CT evidence of acute diverticulitis. The appendix is well-visualized and normal. Focal rectal wall thickening is again suggested on image #[id number]. Peritoneum: There is no intraperitoneal free air or abdominal ascites. There is a fat-containing umbi lical hernia. Lymphadenopathy: None. Pelvic viscera: Evaluation of the pelvis is significantly degraded by streak artifact from bilateral hip arthroplasties. The bladder wall is markedly thickened and hyperemic. There is pericystic inflamm ation. The prostate gland is mildly enlarged and heterogeneous. This is not well assessed due to stre ak artifact. There are bilateral fat-containing inguinal hernias. Skeletal structures: The skeletal structures are osteopenic. There is lumbosacral spondylosis with po stoperative change from L4-L5 spinal fusion. No lytic or blastic lesions are seen. Bilateral hip arth roplasties are in place. IMPRESSION: 1. There is no evidence of pulmonary embolus in the main, lobar, or segmental pulmonary arteries. 2. There is no airspace consolidation or pleural effusion. 3. There is evidence of cystitis with ascending urinary tract infection/pyelonephritis on the right. Correlate with clinical findings and urinalysis. 4. No organized fluid collection is seen to suggest abscess. 5. Hepatomegaly. 6. Moderate constipation. 7. Focal rectal wall thickening is again suggested. If not already performed, nonemergent GI follow-u p is recommended. 8. Additional findings as above. ACT 112: Negative or not required by law. Electronically signed by: Morris Coburn M.D. 04/24/2021 4:52 PM
[2021-04-24] MEDS ORDERED: Heparin IV Adult Wt-Based Standard WITH Bolus Protocol STA (16:57)
[2021-04-24] MEDS: HEPARIN SODIUM/DEXTROSE 25,000 UNITS/500 ML BAG IV SCH (19:35)
[2021-04-24] MEDS ORDERED: ONDANSETRON INJ 2 MG/ML 2 ML VIAL IV PRN (19:42)
[2021-04-24] MEDS ORDERED: DEXTROSE 50% 50 ML SYRINGE IV PRN (19:42)
[2021-04-24] MEDS ORDERED: GLUCOSE 10 TABS/TUBE PO PRN (19:42)
[2021-04-24] MEDS ORDERED: GLUCAGON FOR INJ 1 MG VIAL SQ PRN (19:42)
[2021-04-24] MEDS ORDERED: GLUCOSE 40% GEL 15 GM TUBE PO PRN (19:42)
[2021-04-24] MEDS ORDERED: ACETAMINOPHEN 325 MG TAB PO PRN (19:42)
[2021-04-24] MEDS ORDERED: HEPARIN SOD (PORCINE) 1000 UNIT/ML IV ONE (19:42)
[2021-04-24] MEDS ORDERED: DOCUSATE SODIUM/SENNA 50/8.6MG TAB PO PRN (19:42)
[2021-04-24] MEDS ORDERED: CARBOHYDRATES FOR HYPOGLYCEMIA PO PRN (19:42)
[2021-04-24] MEDS: SODIUM CHLORIDE 0.9% 1000ML 1,000 ML IV SCH (19:54)
[2021-04-24] MEDS ORDERED: FAMOTIDINE 40 MG TABLET PO SCH (21:00)
[2021-04-24] MEDS ORDERED: NON-FORMULARY MEDICATION (Glucosam-Chon-Msm1-C-Mang-Bosw [Osteo Bi-Flex Triple Strength] 7 PO SCH (21:00)
[2021-04-24] MEDS: TAMSULOSIN HCL 0.4 MG CAP PO SCH (22:01)
[2021-04-24] MEDS: ASPIRIN 325 MG ECTAB PO SCH (22:01)
[2021-04-24] MEDS: GABAPENTIN 300 MG CAP PO SCH (22:02)
[2021-04-24] MEDS: ATORVASTATIN 40 MG TAB PO SCH (22:02)
[2021-04-24] MEDS: DOCUSATE SODIUM 100 MG CAP PO SCH (22:03)
[2021-04-24] MEDS: INSULIN ASPART 100 UNITS/ML 3 ML PEN SC SCH (22:03)
[2021-04-24 23:39] LABS: Partial Thromboplastin Ratio 1.6; Partial Thromboplastin Time 41.5 Seconds (21.0-31.0)
[2021-04-25 02:03] LABS: Basophils # (auto) 0.02 K/uL (0-0.2); Basophils % (auto) 0.1 %; Hematocrit (blood only) 33.8 % (42-52); Hemoglobin 11.6 g/dL (14.0-18.0); Immature Granulocytes # (auto) 0.02 K/uL (0.00-0.02); Immature Granulocytes % (auto) 0.1 %; Lymphocytes # (auto) 1.57 K/uL (1.2-3.4); Lymphocytes % (auto) 11.3 %; Mean Corpuscular Hemoglobin 30.8 pg (25-34); Mean Corpuscular Hgb Conc 34.3 g/dL (32-36); Mean Corpuscular Volume 89.7 fL (80-100); Mean Platelet Volume 10.2 fL (7.4-10.4); Monocytes # (auto) 1.11 K/uL (0.11-0.59); Neutrophils # (auto) 11.16 K/uL (1.4-6.5); Neutrophils % (auto) 80.5 %; Platelet Count 195 K/uL (130-400); RDW Coefficient of Variation 13.3 % (11.5-14.5); RDW Standard Deviation 44.1 fL (36.4-46.3); Red Blood Count 3.77 M/uL (4.7-6.1); White Blood Count 13.88 K/uL (4.8-10.8)
[2021-04-25 03:08] LABS: BUN Creatinine Ratio 16.1 (10-20); Calcium 8.5 mg/dl (8.5-10.1); Creatinine Clr Calc Pharmacy 90.4 ml/min; Est GFR (African American) 96.7 ml/min; Est GFR (Non-African American) 83.5 ml/min; Potassium 3.8 mmol/L (3.5-5.1); Troponin I 7.57 ng/ml (0-0.045)
[2021-04-25] MEDS: SODIUM CHLORIDE 0.9% 1000ML 1,000 ML IV SCH (04:15)
[2021-04-25] MEDS: LEVOTHYROXINE SODIUM 112 MCG TABLET PO SCH (06:23)
[2021-04-25 07:12] LABS: Partial Thromboplastin Ratio 1.6; Partial Thromboplastin Time 41.3 Seconds (21.0-31.0)
[2021-04-25 07:25] LABS: Estimated Average Glucose 151 mg/dl; Hemoglobin A1C 6.9 % (4.5-5.6)
[2021-04-25] MEDS: PANTOprazole 40 MG TAB PO SCH (08:13)
[2021-04-25] MEDS: INSULIN ASPART 100 UNITS/ML 3 ML PEN SC SCH ×4 (08:13→21:57)
[2021-04-25] MEDS: LORATADINE 10 MG TAB PO SCH (08:14)
[2021-04-25] MEDS: GABAPENTIN 300 MG CAP PO SCH ×3 (08:14→21:25)
[2021-04-25] MEDS: PSYLLIUM 58.6% POWDER PACKET PO SCH (08:14)
[2021-04-25] MEDS: DOCUSATE SODIUM 100 MG CAP PO SCH ×2 (08:14→21:25)
[2021-04-25] MEDS: allopurinoL 300 MG TAB PO SCH (08:14)
[2021-04-25] MEDS: ASPIRIN 325 MG ECTAB PO SCH (08:14)
[2021-04-25] MEDS ORDERED: METOPROLOL TARTRATE 1 MG/ML VIAL IV STA ×2 (08:35→16:41)
[2021-04-25] MEDS ORDERED: NITROGLYCERIN SL 0.4 MG/TAB TAB SL PRN (08:37)
[2021-04-25] MEDS ORDERED: GLIMEPIRIDE 2 MG TAB PO SCH (09:00)
[2021-04-25] MEDS: CLOPIDOGREL BISULFATE 75 MG TAB PO SCH (10:04)
[2021-04-25] MEDS: HEPARIN SODIUM/DEXTROSE 25,000 UNITS/500 ML BAG IV SCH (12:09)
[2021-04-25] MEDS: cefTRIAXone SODIUM 2,000 MG in DEXTROSE 5% 50 ML IV SCH (12:10)
[2021-04-25] MEDS: lisinopril 2.5 MG TAB PO SCH (12:31)
--- NOTE | 2021-04-25 12:38 | Hospitalist Progress Note ---
Date of Service April 25, 2021 Assessment & Plan (1) Catheter-associated urinary tract infection: Plan: Frederic Camejo III is a 70-year-old male with past medical history significant for spinal cord injury/cauda equina syndrome, urinary retention with need for daily self catheterization, and T2DM who was admitted to [facility] on 04/24 for sepsis due to catheter-associated UTI; also found to have NSTEMI. Sepsis due to Catheter-associated UTI, with Bacteremia Daily catheterizations with several days of urinary symptoms and fever/chills with decreased PO intake. Urine/blood cx showing GN bacilli. CT A/P with evidence of cystitis + right pyelonephritis. - started on Ceftriaxone 2g IV Q24H in the ED - continue - adjust when blood/urine speciation + sensitivities result - was given total of 4L NSS so far, hold on further IVFs for now given adequate PO intake today - cautious repletion with 250-500cc NSS bolus if VS worsen - currently hemodynamically stable - continue to monitor - CBC daily Pulmonary Embolism/NSTEMI Recent diagnosis of right upper lobe PE - was on Eliquis 5mg PO BID for this. Also has stable angina per HPI this morning and increasing Troponin to [address] depressions and T-wave inversions on EKG --> NSTEMI. - Cardiology consulted - appreciate recs - optimize medical management for now given bacteremia, likely will need cardiac cath once this resolves - transitioned to Heparin gtt on admission - continue - started on Lopressor 25mg PO BID and Lisinopril 2.5mg PO QAM - continue as long as BP/HR remains controlled (in setting of above) - continue Aspirin/Plavix and Atorvastatin 40mg PO QHS - trend Troponin to peak - EKG PRN for chest pain - SL Nitro PRN for chest pain HFrEF New diagnosis per TTE today - showing EF 35-40%, moderately reduced LV systolic function, and severe hypokinesis/akinesis of mid-distal inferior wall as well as global hypokinesis. Suspect ischemic cardiomyopathy. - Cardiology consulted as stated above - appreciate recs - med management plan as stated above - may consider transition from Lisinopril to Entresto given superior data in setting of HFrEF - would benefit from f/u with [facility] after discharge Cauda Equina Syndrome/Urinary Retention - continue PRN straight urinary caths and home meds T2DM A1c 6.9 this admission. - hold Metformin/Glimepiride while admitted - SSI while hospitalized Hypothyroidism - continue home Synthroid GERD - continue Protonix per hospital formulary and home Pepcid FEN/GI: DM2/heart-healthy diet DVT Prophylaxis: Heparin gtt Code Status: full code Disposition: PCU w/ tele (2) Pulmonary embolus: (3) Troponin level elevated: (4) Diabetes: (5) Cauda equina compression: Admission and Anticipated Discharge Date Admission Date: April 24, 2021 Supervising Physician Co-Signing Physician Notes I personally examined the patient and verified all constantino points of history and exam, discussed case, and agree with decision making with Dr Landaverde. feeling better as related to sepsis/UTI - less abdominal pain and bladder seems to be draining better. no complaints of chest pain now Vitals noted, in general he is awake and alert pleasant no distress. HEENT normocephalic atraumatic mucous membranes moist. Breathing unlabored no accessory muscle use good effort. Skin shows no rashes no pallor or icterus. Complicated UTI related to self-catheterization with pyelonephritis, sepsis, and bacteremia present on admission -appears to be stabilizing. Continue ceftriaxone, follow cultures for sensitivities. Continue supportive care. NSTEMIalmost certainly related to physiologic stress from above, but definitely higher than one would normally see just from demand ischemia. Med management (paying attention to concern on reducing tachycardia to "slow the treadmill" as it relates to his sepsis creating demand ischemia, while also not wanting to cut compensatory tachycardia and create hemodynamic instability), anticipate heart cathhowever certainly would want to treat bacteremia first. otherwise as above Subjective No acute events overnight. Patient's fever resolved with PRN Tylenol - T37C as of this morning. Patient confirms history that was reported in the H&P. Also reports exertional substernal, non-radiating chest pain with associated SOB/diaphoresis that occurred 3 days ago, lasted for 10-15 minutes and resolved with rest. Denies further episodes of chest pain since then. Currently reports mild suprapubic tenderness and persistent malodorous urine. Currently denies fever/chills, chest pain, palpitations, syncope, near-syncope, cough, N/V, rash. Review of Systems Review of Systems: All systems reviewed & are unremarkable except as noted in Subjective Physical Exam Physical Exam: General: A&Ox3. NAD. Cooperative. HEENT: Atraumatic, normocephalic. Pulm: CTAB A&P. -wheezes, -rales, -rhonchi. Symmetrical chest rise. No increase work of breathing. No respiratory distress. Cardiac: RRR, -mrg. Radial pulses intact and symmetrical. No LE edema Abdominal: soft, mild suprapubic tenderness, no CVA tenderness, abdomen is non- distended and has NA BS x 4 Skin: warm, dry, no rash Results & Data Results & Data ([facility]) Vital Signs (Past 12 Hours) Vital Signs Temp Pulse Pulse Resp BP Pulse Ox 04/25/21 12:11 37.3 C 103 H 19 116/77 91 04/25/21 10:04 103 H 04/25/21 09:27 104 H 04/25/21 08:41 36.8 C 110 H 21 129/72 91 Resident Activity Tracking Resident Involvement: Resident Care Provided Care Provided: Adult Hospital Medicine (1) Catheter-associated urinary tract infection Encounter type: initial encounter Indwelling urinary catheter type: unspecified Qualified Code(s): T83.511A - Infection and inflammatory reaction due to indwelling urethral catheter, initial encounter; N39.0 - Urinary tract infection, site not specified
[2021-04-25 13:29] LABS: Partial Thromboplastin Ratio 1.3; Partial Thromboplastin Time 35.3 Seconds (21.0-31.0)
--- NOTE | 2021-04-25 14:48 | XCELERA ---
[id number]
[2021-04-25] MEDS ORDERED: METOPROLOL TARTRATE 25 MG TAB PO ONE (18:40)
--- NOTE | 2021-04-25 18:52 | Billing Data ---
Date of Service April 25, 2021 Coding Level of Care Code 03703 Subseq Hosp Care Lvl 3
[2021-04-25] MEDS ORDERED: HEPARIN SOD (PORCINE) 1000 UNIT/ML IV ONE (19:15)
--- NOTE | 2021-04-25 19:34 | Cardiology Consultation ---
Date of Consultation April 25, 2021 Assessment & Plan (1) Acute non-ST elevation myocardial infarction (NSTEMI): (2) Cardiomyopathy: (3) Sinus tachycardia: ASSESSMENT/PLAN: 1. Acute NSTEMI: He did not present with angina but had angina the day prior to presentation. Concerned that he has severe underlying CAD and with the overall stress of presenting infection with bacteremia, ischemic event occurred. Has been having exertional angina prior to presentation. Recommended cardiac c atheterization non urgently in the near future after infection appropriately treated. He declines and would like to wait until after Natacha. Discussed the fact that having exertional angina as an outpatient, concerning that he may continue to have events. He expressed understanding but wishes to hold off and prefers medical therapy. Recommend initiating low-dose oral beta-kan. Continue aspirin 81 mg daily. Has been placed on Plavix by primary service however would not recommend triple therapy as he is also on chronic anticoagulation therapy. Can continue dual anti-platelet therapy for now in case he decides to undergo cardiac catheterization and possible PCI during this hospital stay but otherwise, would not continue dual anti-platelet therapy with anticoagulation on discharge. 2. Cardiomyopathy: Discussed echo findings with him. Fortunately, he does not appear to be hypervolemic. Has been having more edema recently and therefore may have some form of chronic CHF but certainly does not appear to have acute decompensation. Would try to maintain slightly net negative fluid balance given reduced LV systolic function. Although starting with metoprolol tartrate, on d ischarge would recommend metoprolol succinate given reduced LV systolic function. Is on lisinopril. Can continue lisinopril or consider Entresto after holding lisinopril for at least 36 hours. 3. Sinus tachycardia: Likely due to reduced LV systolic function and also UTI/pyelonephritis/bacteremia. He is asymptomatic. Initiating beta-kan as above and would titrate slowly. Would avoid intravenous beta-kan if possible. 4. Bacteremia/pyelonephritis/UTI: As per primary service. He appears to be improving clinically. 5. Disposition: Cardiology will continue to follow. Patient care communicated with primary hospitalist service. Thank you for allowing me to participate in the care of your patient. Please call for any other questions or concerns. Sincerely, Jn Casillas M.D. History of Present Illness Reason for Consultation: NSTEMI Requesting Physician: Dr. Duron Attending Physician: Houston Duran DO History of Present Illness Mr. Camejo is a very pleasant 70-year-old gentleman with a history significant for cauda equina syndrome following L4/L5 injury in December of 2020, hypertension, dyslipidemia, type 2 diabetes and metastatic testicular cancer (diagnosed at age 26). He also has a history of right upper lobe PE following surgery in December of 2020. He was admitted on 04/24/2021 with concerns of UTI. He has been performing self catheterizations and noted cloudy urine on 04/20/2021. This worsened over the next few days. He developed fevers, chills, nausea, vomiting. He was admitted and placed on antibiotic therapy. Nausea and vomiting has since subsided. He is feeling much better. He has not had any chest pain or shortness of breath during this hospital stay. On presentation however his troponin was 4.61, trended down to 4.19 and then has continued to trend upward to 12.6, not definitively peak at this point. He admits that prior to this hospitalization for the past 6 months to 1 year he has been having substernal chest discomfort described as a heaviness or pressure, occurring only with exertion. His last episode was the day prior to presentation walking from 1 room to the other in his home. Symptoms resolved within 5 minutes of rest. He denies associated shortness of breath but admits to diaphoresis. There was no radiation of the pain. Over the past year, symptoms have been occurring with less exertion. He denies recent syncope, palpitations, or bleeding. He has had lower extremity swelling and takes p.r.n. Lasix. He has been taking it more frequently recently, taking it 3 days consecutive given increased edema. He ambulates with the assistance of a walker and enjoys gardening. He is undergoing physical therapy and was moving towards using a cane. He wears braces for his lower extremities. Review of systems: As above. Review of systems otherwise negative/unremarkable. Family history: No known premature CAD. Mother had diabetes. Father at 93. Social history: Quit smoking in approximately 2016 after 10-20 pack years. No alcohol. Lives at home with his . Has a son and a daughter. Worked as a machine welder. He was unaccompanied in his hospital room. Allergies Allergy/AdvReac Type Severity Reaction Status Date / Time Penicillins Allergy Intermediate HIGH Verified 04/24/21 15:09 FEVER, RASH (NOTED ALLERGIC TO "ANY-CILLIN" bee pollen Allergy Unknown Unknown Verified 04/24/21 15:09 Home Medications Medication Instructions Recorded Confirmed Type glucosamine 750 [id number] 1 tab PO BID 10/22/18 04/24/21 History no1 644 mg-C 30 mg-fabio 1 mg tablet (Osteo Bi-Flex Triple Strength) allopurinol 300 mg tablet 300 mg PO DAILY #90 tab 07/26/20 04/24/21 Rx famotidine 40 mg tablet 40 mg PO HS #90 tab 11/15/20 04/24/21 Rx metformin 1,000 mg tablet 1,000 mg PO BID #180 tab 01/10/21 04/24/21 Rx acetaminophen 325 mg tablet 650 mg PO Q4 PRN 02/01/21 04/24/21 History atorvastatin 40 mg tablet 40 mg PO HS 02/01/21 04/24/21 History loratadine 10 mg tablet 10 mg PO DAILY 02/01/21 04/24/21 History polyethylene glycol 3350 17 gram 17 g PO QDL PRN 02/01/21 04/24/21 History oral powder packet (Miralax) psyllium 1 packet PO DAILY 02/01/21 04/24/21 History sennosides 8.6 mg-docusate sodium 1 tab PO QDL PRN 02/01/21 04/24/21 History 50 mg tablet (Senokot-S) glimepiride 2 mg tablet 2 mg PO DAILY #90 tab 02/07/21 04/24/21 Rx tamsulosin 0.4 mg capsule 0.4 mg PO HS #30 cap 02/08/21 04/24/21 Rx omeprazole 20 mg capsule,delayed 20 mg PO DAILY 02/26/21 04/24/21 History release apixaban 5 mg tablet 5 mg PO BID 02/28/21 04/24/21 History docusate sodium 100 mg tablet 100 mg PO BID 02/28/21 04/24/21 History fluticasone propionate 50 1 spray INTRANASAL BID PRN 02/28/21 04/24/21 History mcg/actuation nasal spray,suspension diaper,brief,adult,disposable #126 ea 06/15/21 07/28/21 Rx levothyroxine 112 mcg tablet 112 mcg PO DAILY #30 tab 03/16/21 04/24/21 Rx Tawanna Freeman #1 ea 03/17/21 04/19/21 Rx furosemide 20 mg tablet (Lasix) 20 mg PO DAILY PRN #30 tab 04/05/21 04/24/21 Rx gabapentin 300 mg capsule 300 mg PO TID cap 04/05/21 04/24/21 History Patient History Medical History Allergic rhinitis Cauda equina syndrome Constipation Diabetes Dyslipidemia (high LDL; low HDL) GERD (gastroesophageal reflux disease) Gout Hx of testicular cancer Hypertension Hypothyroidism Lumbar disc disease Lumbar disc herniation with radiculopathy Lumbar pain with radiation down both legs Osteoarthritis Spinal stenosis, lumbar region with neurogenic claudication Urinary retention Surgical History Hx of lumbosacral spine surgery Hx of total hip arthroplasty S/P orchiopexy 1975 Family History Father Lung cancer Cancer brain Mother Diabetes Uncle Prostate cancer Grandmother (Paternal) Stroke Family/Other Colorectal cancer Breast cancer Myocardial infarction Grandfather (Maternal) Rheumatoid arthritis Denies family history of Ovarian cancer Social History Smoking Status: Unknown if ever smoked Tobacco Type: Cigarettes Age Quit Using Tobacco: 65; packs per day: 0.5; Years Smoked: 24; Cigarettes Per Day: just a few per week; Second Hand Exposure: No; Hx Alcohol Use: No Hx Substance Use: No Preferred Language: Macedonian Communication Ability: Effective Visual Impairment: Limited Hearing Ability: Normal Housecleaner Floor Required: No Beliefs That Will Affect Care: None marital status: Current Living Situation: Spouse current occupational status: retired How many Children do You have: 2 How many Children do You have Comment: live local, children and able to help with care as needed. Other Information That Helps Us Care for You: No Feels Safe at Home: Yes Safety Concerns: Feels Safe At This Time Childhood Exposure to Second-Hand Smoke: No Diet Comment: eats what he wants to , has tried to start eating "healthier" caffeine: Yes during the past year weight has: decreased > 10 lbs Dental Care, Regularly: No Physical Activity Frequency: Other Physical Activity Frequency Comment: house chores Seatbelt Use: never Sunscreen Use: No Assistive Devices: Denture - Upper, Glasses, Walker and Wheelchair Physical Exam Physical Exam: Gen.: No acute distress. Alert and oriented. HEENT: Anicteric sclera. Neck: No obvious JVD. No bruits. Normal carotid upstrokes bilaterally. Cardiac: PMI was nonpalpable. No ventricular heave. Regular but mildly tachycardic. Normal S1-S2. No murmurs, rubs, or gallops. Pulmonary: Left basilar rales, otherwise clear to auscultation bilaterally without wheezes, rales, or rhonchi. Abdomen: Soft, nontender, nondistended, with normoactive bowel sounds. No bruits noted. Extremities: 2+ radial pulses bilaterally. 2+ posterior tibialis pulses bilaterally. Trace bilateral lower extremity edema. No cyanosis. Psychiatric: Affect appears appropriate. Results & Data ([facility]) Vital Signs (Past 12 Hours) Vital Signs Temp Pulse Pulse Resp BP Pulse Ox 04/25/21 19:02 37.4 C 110 H 20 122/77 97 04/25/21 15:19 36.8 C 112 H 20 125/73 95 04/25/21 15:00 103 H 04/25/21 12:11 37.3 C 103 H 19 116/77 91 04/25/21 10:04 103 H 04/25/21 09:27 104 H 04/25/21 08:41 36.8 C 110 H 21 129/72 91 Intake & Output 04/23/21 04/24/21 04/25/21 04/26/21 06:59 06:59 06:59 06:59 Intake Total 4096 / 4096 2751.766 / 2751.766 Output Total 801 / 801 1351 / 1351 Balance 3295 / 3295 1400.766 / 1400.766 Weight 216 lb 14.958 oz Laboratory Results Laboratory Results - last 24 hr 04/24/21 04/24/21 04/24/21 19:50 20:19 23:06 WBC RBC Hgb Hct MCV MCH MCHC RDW Std Deviation RDW Coeff of Radha Plt Count MPV Immature Gran % (Auto) Neut % (Auto) Lymph % (Auto) [place] % (Auto) Eos % (Auto) Baso % (Auto) Neut # (Auto) Lymph # (Auto) [place] # (Auto) Eos # (Auto) Baso # (Auto) Immature Gran # (Auto) APTT 41.5 H PTT Ratio 1.6 Sodium Potassium Chloride Carbon Dioxide Anion Gap BUN Creatinine Est Cr Clr Drug Dosing Est GFR ( Amer) Est GFR (Non-Af Amer) BUN/Creatinine Ratio Glucose POC Glucose 193 H Estimat Average Glucose Hemoglobin A1c Calcium Magnesium Troponin I 4.190 H* Triglycerides Cholesterol LDL Cholesterol, Calc VLDL Cholesterol, Calc HDL Cholesterol Cholesterol/HDL Ratio 04/25/21 04/25/21 04/25/21 01:49 01:49 01:49 WBC 13.88 H RBC 3.77 L Hgb 11.6 L Hct 33.8 L MCV 89.7 MCH 30.8 MCHC 34.3 RDW Std Deviation 44.1 RDW Coeff of Radha 13.3 Plt Count 195 MPV 10.2 Immature Gran % (Auto) 0.1 Neut % (Auto) 80.5 Lymph % (Auto) 11.3 [place] % (Auto) 8.0 Eos % (Auto) 0.0 Baso % (Auto) 0.1 Neut # (Auto) 11.16 H Lymph # (Auto) 1.57 [place] # (Auto) 1.11 H Eos # (Auto) 0.00 Baso # (Auto) 0.02 Immature Gran # (Auto) 0.02 APTT PTT Ratio Sodium 135 L Potassium 3.8 Chloride 101 Carbon Dioxide 31 Anion Gap 4.0 BUN 15 Creatinine 0.93 Est Cr Clr Drug Dosing 90.4 Est GFR ( Amer) 96.7 Est GFR (Non-Af Amer) 83.5 BUN/Creatinine Ratio 16.1 Glucose 180 H POC Glucose Estimat Average Glucose 151 Hemoglobin A1c 6.9 H Calcium 8.5 Magnesium 2.0 Troponin I 7.570 H* Triglycerides 132 Cholesterol 103 LDL Cholesterol, Calc 53 VLDL Cholesterol, Calc 26 HDL Cholesterol 24 Cholesterol/HDL Ratio 4 04/25/21 04/25/21 04/25/21 06:41 06:41 07:49 WBC RBC Hgb Hct MCV MCH MCHC RDW Std Deviation RDW Coeff of Radha Plt Count MPV Immature Gran % (Auto) Neut % (Auto) Lymph % (Auto) [place] % (Auto) Eos % (Auto) Baso % (Auto) Neut # (Auto) Lymph # (Auto) [place] # (Auto) Eos # (Auto) Baso # (Auto) Immature Gran # (Auto) APTT 41.3 H PTT Ratio 1.6 Sodium Potassium Chloride Carbon Dioxide Anion Gap BUN Creatinine Est Cr Clr Drug Dosing Est GFR ( Amer) Est GFR (Non-Af Amer) BUN/Creatinine Ratio Glucose POC Glucose 161 H Estimat Average Glucose Hemoglobin A1c Calcium Magnesium Troponin I 9.930 H* Triglycerides Cholesterol LDL Cholesterol, Calc VLDL Cholesterol, Calc HDL Cholesterol Cholesterol/HDL Ratio 04/25/21 04/25/21 04/25/21 11:27 13:02 13:02 WBC RBC Hgb Hct MCV MCH MCHC RDW Std Deviation RDW Coeff of Radha Plt Count MPV Immature Gran % (Auto) Neut % (Auto) Lymph % (Auto) [place] % (Auto) Eos % (Auto) Baso % (Auto) Neut # (Auto) Lymph # (Auto) [place] # (Auto) Eos # (Auto) Baso # (Auto) Immature Gran # (Auto) APTT 35.3 H PTT Ratio 1.3 Sodium Potassium Chloride Carbon Dioxide Anion Gap BUN Creatinine Est Cr Clr Drug Dosing Est GFR ( Amer) Est GFR (Non-Af Amer) BUN/Creatinine Ratio Glucose POC Glucose 190 H Estimat Average Glucose Hemoglobin A1c Calcium Magnesium Troponin I 12.600 H* Triglycerides Cholesterol LDL Cholesterol, Calc VLDL Cholesterol, Calc HDL Cholesterol Cholesterol/HDL Ratio 04/25/21 04/25/21 16:40 18:07 WBC RBC Hgb Hct MCV MCH MCHC RDW Std Deviation RDW Coeff of Radha Plt Count MPV Immature Gran % (Auto) Neut % (Auto) Lymph % (Auto) [place] % (Auto) Eos % (Auto) Baso % (Auto) Neut # (Auto) Lymph # (Auto) [place] # (Auto) Eos # (Auto) Baso # (Auto) Immature Gran # (Auto) APTT PTT Ratio Sodium Potassium Chloride Carbon Dioxide Anion Gap BUN Creatinine Est Cr Clr Drug Dosing Est GFR ( Amer) Est GFR (Non-Af Amer) BUN/Creatinine Ratio Glucose POC Glucose 176 H Estimat Average Glucose Hemoglobin A1c Calcium Magnesium Troponin I 10.800 H* Triglycerides Cholesterol LDL Cholesterol, Calc VLDL Cholesterol, Calc HDL Cholesterol Cholesterol/HDL Ratio Diagnostic Findings Echo report reviewed 04/25/2021: Moderately reduced LV systolic function. EF 35-40 %. Severe hypokinesis to akinesis of the mid to distal inferior wall. Dyskinetic apex. Otherwise, mild global hypokinesis. Moderate LVH. No significant valvular abnormalities. RVSP 26. Telemetry personally reviewed: Sinus tachycardia. ECGs personally reviewed: ECG 04/24/2021 at 1:32 p.m.: Sinus tachycardia 110 beats per minute. Nonspecific T-wave abnormality. ECG 04/25/2021 at 3:41 a.m.: Sinus tachycardia 109 beats per minute. Inferolateral T-wave inversion. Prolonged QT. CTA chest/abdomen/pelvis 04/24/2021: No PE. No airspace consolidation. Evidence of cystitis and ascending urinary tract infection/pyelonephritis on the right per Radiology. Blood cultures 04/24/2021: Gram-negative bacilli 2 of 2 cultures. Medications Administered Current Inpatient Medications Acetaminophen (Acetaminophen 325 Mg Tab) 650 mg PO Q4 PRN PRN Reason: Pain Stop: 05/24/21 19:41 Allopurinol (Allopurinol 300 Mg Tab) 300 mg PO DAILY NOAH Stop: 05/25/21 08:59 Last Admin: 04/25/21 08:14 Dose: 300 mg Documented by: Aspirin (Aspirin 81 Mg Ectab) 81 mg PO QAM NOAH Stop: 05/26/21 08:59 Atorvastatin Calcium (Atorvastatin 40 Mg Tab) 40 mg PO HS NOAH Stop: 05/24/21 20:59 Last Admin: 04/24/21 22:02 Dose: 40 mg Documented by: Clopidogrel Bisulfate (Clopidogrel Bisulfate 75 Mg Tab) 75 mg PO QAM NOAH Stop: 05/25/21 08:59 Last Admin: 04/25/21 10:04 Dose: 75 mg Documented by: Dextrose (Dextrose 50% 50 Ml Syringe) 25 - 50 ml IV UD PRN; Protocol PRN Reason: Hypoglycemia Protocol Stop: 05/24/21 19:41 Docusate Sodium (Docusate Sodium 100 Mg Cap) 100 mg PO BID NOAH Stop: 05/24/21 20:59 Last Admin: 04/25/21 08:14 Dose: 100 mg Documented by: Famotidine (Famotidine 40 Mg Tablet) 40 mg PO HS NOAH Stop: 05/25/21 20:59 Gabapentin (Gabapentin 300 Mg Cap) 300 mg PO TID [facility] Stop: 05/24/21 20:59 Last Admin: 04/25/21 12:11 Dose: 300 mg Documented by: Glucagon (Glucagon For Inj 1 Mg Vial) 1 mg SQ UD PRN; Protocol PRN Reason: Hypoglycemia Protocol Stop: 05/24/21 19:41 Glucose (Glucose 10 Tabs/Tube) 4 - 8 tabs PO UD PRN; Protocol PRN Reason: Hypoglycemia Protocol Stop: 05/24/21 19:41 Glucose (Glucose 40% Gel 15 Gm Tube) 15 - 30 gm PO UD PRN; Protocol PRN Reason: Hypoglycemia Protocol Stop: 05/24/21 19:41 Ceftriaxone Sodium 2,000 mg/ (Dextrose) 70 mls @ 100 mls/hr IV Q24H [facility]; Protocol Stop: 05/04/21 11:59 Last Infusion: 04/25/21 13:00 Dose: Infused Documented by: Heparin Sodium/Dextrose (Heparin Sodium/Dextrose) 25,000 units in 500 mls @ 35 mls/hr IV .[id number] [facility]; Protocol Stop: 05/24/21 19:41 Last Titration: 04/25/21 19:01 Dose: 1,750 units/hr, 35 mls/hr Documented by: Insulin Aspart (Insulin Aspart 100 Units/Ml 3 Ml Pen) 0 units SC ACHS [facility] Stop: 05/24/21 20:59 Last Admin: 04/25/21 17:32 Dose: 3 units Documented by: Levothyroxine Sodium (Levothyroxine Sodium 112 Mcg Tablet) 112 mcg PO DAILYBB [facility] Stop: 05/25/21 06:29 Last Admin: 04/25/21 06:23 Dose: 112 mcg Documented by: Lisinopril (Lisinopril 2.5 Mg Tab) 2.5 mg PO QAM [facility] Stop: 05/25/21 10:44 Last Admin: 04/25/21 12:31 Dose: 2.5 mg Documented by: Loratadine (Loratadine 10 Mg Tab) 10 mg PO DAILY [facility] Stop: 05/25/21 08:59 Last Admin: 04/25/21 08:14 Dose: 10 mg Documented by: Metoprolol Tartrate (Metoprolol Tartrate 25 Mg Tab) 25 mg PO BID [facility] Stop: 05/25/21 19:29 Miscellaneous (Carbohydrates For Hypoglycemia ) 15 - 30 gm PO UD PRN PRN Reason: Hypoglycemia Protocol Stop: 05/24/21 19:41 Nitroglycerin (Nitroglycerin Sl 0.4 Mg/Tab Tab) 0.4 mg SL Q5M PRN PRN Reason: Chest Pain Stop: 05/25/21 08:36 Ondansetron HCl (Ondansetron Inj 2 Mg/Ml 2 Ml Vial) 4 mg IV Q6H PRN PRN Reason: Nausea Stop: 05/24/21 19:41 Last Admin: 04/24/21 20:25 Dose: 4 mg Documented by: Pantoprazole Sodium (Pantoprazole 40 Mg Tab) 40 mg PO DAILY NOAH; Protocol Stop: 05/25/21 08:59 Last Admin: 04/25/21 08:13 Dose: 40 mg Documented by: Psyllium Hydrophilic Mucilloid (Psyllium 58.6% Powder Packet) 1 pkt PO DAILY NOAH Stop: 05/25/21 08:59 Last Admin: 04/25/21 08:14 Dose: 1 pkt Documented by: Senna/Docusate Sodium (Docusate Sodium/Senna 50/8.6mg Tab) 1 tab PO QDL PRN PRN Reason: Constipation Stop: 05/24/21 19:41 Tamsulosin HCl (Tamsulosin Hcl 0.4 Mg Cap) 0.4 mg PO HS NOAH Stop: 05/24/21 20:59 Last Admin: 04/24/21 22:01 Dose: 0.4 mg Documented by: PG Care Time/CCT Total # of Minutes Spent Total Time Spent with Patient: Total time spent is greater than 50% in coordination of care (as documented) at patient's floor/unit and/or counseling patient: Coding Level of Care Code 38384 Initial Inpt Care Lvl 3 Diagnoses Acute non-ST elevation myocardial infarction (NSTEMI) I21.4 Cardiomyopathy I42.9 Sinus tachycardia R00.0
[2021-04-25] MEDS: METOPROLOL TARTRATE 25 MG TAB PO SCH (19:40)
[2021-04-25] MEDS ORDERED: METOPROLOL TARTRATE 50 MG TAB PO SCH (21:00)
[2021-04-25] MEDS ORDERED: METOPROLOL TARTRATE 25 MG TAB PO SCH (21:00)
[2021-04-25] MEDS: TAMSULOSIN HCL 0.4 MG CAP PO SCH (21:25)
[2021-04-25] MEDS: FAMOTIDINE 40 MG TABLET PO SCH (21:26)
[2021-04-25] MEDS: ATORVASTATIN 40 MG TAB PO SCH (21:26)
[2021-04-26 01:00] LABS: Partial Thromboplastin Ratio 1.5
[2021-04-26] MEDS: LEVOTHYROXINE SODIUM 112 MCG TABLET PO SCH (03:41)
[2021-04-26] MEDS: HEPARIN SODIUM/DEXTROSE 25,000 UNITS/500 ML BAG IV SCH ×3 (03:41→17:31)
[2021-04-26 06:53] LABS: Basophils # (auto) 0.03 K/uL (0-0.2); Basophils % (auto) 0.4 %; Eosinophils # (auto) 0.07 K/uL (0-0.5); Eosinophils % (auto) 0.9 %; Hemoglobin 10.1 g/dL (14.0-18.0); Immature Granulocytes # (auto) 0.02 K/uL (0.00-0.02); Immature Granulocytes % (auto) 0.3 %; Lymphocytes # (auto) 1.22 K/uL (1.2-3.4); Lymphocytes % (auto) 15.7 %; Mean Corpuscular Hemoglobin 29.9 pg (25-34); Mean Corpuscular Hgb Conc 33.7 g/dL (32-36); Mean Corpuscular Volume 88.8 fL (80-100); Mean Platelet Volume 10.6 fL (7.4-10.4); Monocytes % (auto) 7.7 %; Neutrophils # (auto) 5.83 K/uL (1.4-6.5); Platelet Count 171 K/uL (130-400); RDW Coefficient of Variation 13.2 % (11.5-14.5); Red Blood Count 3.38 M/uL (4.7-6.1); White Blood Count 7.77 K/uL (4.8-10.8)
[2021-04-26 07:10] LABS: Partial Thromboplastin Ratio 1.6; Partial Thromboplastin Time 42.9 Seconds (21.0-31.0)
[2021-04-26 07:26] LABS: BUN Creatinine Ratio 16.2 (10-20); Calcium 8.2 mg/dl (8.5-10.1); Creatinine Clr Calc Pharmacy 95.4 ml/min; Est GFR (African American) 100.6 ml/min; Est GFR (Non-African American) 86.8 ml/min; Magnesium 2.1 mg/dl (1.8-2.4); Potassium 3.6 mmol/L (3.5-5.1)
[2021-04-26 07:39] LABS: Phosphorus 3.4 mg/dl (2.5-4.9); Troponin I 6.31 ng/ml (0-0.045)
[2021-04-26] MEDS: LORATADINE 10 MG TAB PO SCH (08:08)
[2021-04-26] MEDS: DOCUSATE SODIUM 100 MG CAP PO SCH ×2 (08:08→20:27)
[2021-04-26] MEDS: GABAPENTIN 300 MG CAP PO SCH ×3 (08:08→20:28)
[2021-04-26] MEDS: ASPIRIN 81 MG ECTAB PO SCH (08:08)
[2021-04-26] MEDS: PANTOprazole 40 MG TAB PO SCH (08:09)
[2021-04-26] MEDS: PSYLLIUM 58.6% POWDER PACKET PO SCH (08:09)
[2021-04-26] MEDS: METOPROLOL TARTRATE 25 MG TAB PO SCH (08:09)
[2021-04-26] MEDS: lisinopril 2.5 MG TAB PO SCH (08:09)
[2021-04-26] MEDS: allopurinoL 300 MG TAB PO SCH (08:09)
[2021-04-26] MEDS: CLOPIDOGREL BISULFATE 75 MG TAB PO SCH (08:11)
[2021-04-26] MEDS: INSULIN ASPART 100 UNITS/ML 3 ML PEN SC SCH ×4 (08:46→20:54)
--- NOTE | 2021-04-26 11:16 | Hospitalist Progress Note ---
Date of Service April 26, 2021 Assessment & Plan (1) Catheter-associated urinary tract infection: Plan: Frederic Camejo III is a 70-year-old male with past medical history significant for spinal cord injury/cauda equina syndrome, urinary retention with need for daily self catheterization, and T2DM who was admitted to [facility] on 04/24 for sepsis due to catheter-associated UTI; also found to have NSTEMI. Sepsis due to Catheter-associated UTI, with Bacteremia Daily catheterizations with several days of urinary symptoms and fever/chills with decreased PO intake. Urine cx growing E. coli sensitive to CTX, blood cx showing GN bacilli. CT A/P with evidence of cystitis + right pyelonephritis. - started on Ceftriaxone 2g IV Q24H in the ED - continue (today is day 11/06) - transition to PO tomorrow if remains afebrile/hemodynamically stable - was given total of 4L NSS so far, hold on further IVFs for now given adequate PO intake today - cautious repletion with 250-500cc NSS bolus if VS worsen - CBC daily Pulmonary Embolism/NSTEMI Recent diagnosis of right upper lobe PE - was on Eliquis 5mg PO BID for this. H/o stable angina, Troponin peaked at 12.6 on 04/25, with ST depressions and T- wave inversions on EKG --> NSTEMI. - Cardiology consulted - appreciate recs - NPO for cardiac catheterization tomorrow - transitioned to Heparin gtt on admission - continue - started on Lopressor 25mg PO BID and Lisinopril 2.5mg PO QAM - continue as long as BP/HR remains controlled (in setting of above) - continue Aspirin/Plavix and Atorvastatin 40mg PO QHS - EKG PRN for chest pain - SL Nitro PRN for chest pain HFrEF New diagnosis per TTE today - showing EF 35-40%, moderately reduced LV systolic function, and severe hypokinesis/akinesis of mid-distal inferior wall as well as global hypokinesis. Suspect ischemic cardiomyopathy. - Cardiology consulted as stated above - appreciate recs - med management plan as stated above - may consider transition from Lisinopril to Entresto given superior data in setting of HFrEF - would benefit from f/u with [facility] Failure [facility] after discharge Normocytic Anemia Hgb 11.6 --> 10.1 today. Baseline 12-14 in the last several months. In context of recent addition of several blood thinners. Possibly due to lab error but requires further eval. - repeat Hgb stable at 10.3 this afternoon - currently hemodynamically stable without signs of active bleeding - FOBT ordered - results pending Cauda Equina Syndrome/Urinary Retention - continue PRN straight urinary caths and home meds T2DM A1c 6.9 this admission. At goal (<7). - hold Metformin/Glimepiride while admitted - SSI while hospitalized - f/u with PCP, consider tapering down regimen given A1c Hypothyroidism - continue home Synthroid GERD - continue Protonix per hospital formulary and home Pepcid FEN/GI: DM2/heart-healthy diet, NPO at midnight for cath tomorrow DVT Prophylaxis: Heparin gtt Code Status: full code Disposition: PCU w/ tele (2) Pulmonary embolus: (3) Troponin level elevated: (4) Diabetes: (5) Cauda equina compression: Admission and Anticipated Discharge Date Admission Date: April 24, 2021 Supervising Physician Co-Signing Physician Notes I personally examined the patient and verified all constantino points of history and exam, discussed case, and agree with decision making with Dr Landaverde. Overall feeling better. Urine draining better. No abdominal pain. No chest pain. present at the bedside. Spent approximately 45 minutes [id number] with patient and explaining diagnoses, plans, options, risk/benefit, and answering all questions to the best my ability. As it related to his cath associated UTIsshe has only been self cathing for about 2 months, they have been able to use clean casts almost alwayshowever there were few occasions where they ran out and had to reuse. They both wash their hands before doing so, and use Betadine. They have been irrigating with apple cider vinegar. Also, while he cannot quantify how much he drinks in a day, he does not think it is even 60 ounces. Vitals noted, in general he is awake and alert pleasant no distress. HEENT normocephalic atraumatic mucous membranes moist. Breathing unlabored no accessory muscle use good effort. Skin shows no rashes no pallor or icterus. Complicated UTI related to self-catheterization with pyelonephritis, sepsis, and bacteremia present on admission -improving. E. coli in urine sensitive to ceftriaxone, suspect blood will match. Definitely improving. Continue current care. Educated on possible holes in clean/sterile technique as it relates to his self cath procedures, asked him to have nursing guide him given that he is new to this and they do it all the time, especially given that he notes nursing was able to drain things faster than he usually can. Recommended we move to sterile flushes instead of apple cider vinegar. Discussed cranberry tabs as another suppressive agentgiven that we also discussed risk benefit of prophylactic antibiotics likely leading to more rapid antibiotic resistance bacteria, although given that he has had 3 infections since initiating self cathing, with this particular one being life-threatening, it would not be unreasonable. For now given that we have a lot of potentials for improvement, will work on those before exposing him to the risk of prophylactic antibiotics. Also recommended 60 to 80 ounces of fluids a day to maintain hydration so that his bladder is not a "stagnant pond" NSTEMIalmost certainly related to physiologic stress from above, but definitely higher than one would normally see just from demand ischemia. Furthermore, echo shows wall motion abnormalities that seem to exceed our troponin elevation, giving me concerned that he has had silent MIs at home before as well. Med management for now, after discussion of risks and benefitscath tomorrow. otherwise as above Subjective No acute events overnight. Patient continues to deny chest pain, palpitations, SOB, N/V, diaphoresis. Also denies fever/chills but reports mild suprapubic pain. Review of Systems Review of Systems: All systems reviewed & are unremarkable except as noted in Subjective Physical Exam Physical Exam: General: A&Ox3. NAD. Cooperative. HEENT: Atraumatic, normocephalic. Pulm: CTAB A&P. -wheezes, -rales, -rhonchi. Symmetrical chest rise. No increase work of breathing. No respiratory distress. Cardiac: RRR, -mrg. Radial pulses intact and symmetrical. No LE edema Abdominal: soft, mild suprapubic tenderness, no CVA tenderness, abdomen is non- distended and has NA BS x 4 Skin: warm, dry, no rash Results & Data Results & Data ([facility]) Vital Signs (Past 12 Hours) Vital Signs Temp Pulse Pulse Resp BP Pulse Ox 04/26/21 11:08 36.3 C L 84 17 116/71 93 04/26/21 08:02 36.9 C 91 H 20 101/65 93 04/26/21 08:00 97 H 04/26/21 03:12 37.1 C 96 H 20 113/73 92 04/25/21 23:30 37.5 C 97 H 19 92/54 L 92 Resident Activity Tracking Resident Involvement: Resident Care Provided Care Provided: Adult Hospital Medicine (1) Catheter-associated urinary tract infection Encounter type: initial encounter Indwelling urinary catheter type: unspecified Qualified Code(s): T83.511A - Infection and inflammatory reaction due to indwelling urethral catheter, initial encounter; N39.0 - Urinary tract infection, site not specified
[2021-04-26] MEDS: cefTRIAXone SODIUM 2,000 MG in DEXTROSE 5% 50 ML IV SCH (12:22)
[2021-04-26 13:12] LABS: Hematocrit (blood only) 30.8 % (42-52); Hemoglobin 10.3 g/dL (14.0-18.0)
[2021-04-26 13:24] LABS: Partial Thromboplastin Ratio 1.5; Partial Thromboplastin Time 38.7 Seconds (21.0-31.0)
--- NOTE | 2021-04-26 14:14 | Cardiology Progress Note ---
Date of Service April 26, 2021 Assessment & Plan (1) Acute non-ST elevation myocardial infarction (NSTEMI): (2) Cardiomyopathy: (3) Sinus tachycardia: Plan: ASSESSMENT/PLAN: 1. Acute NSTEMI: Had exertional angina over the past several months but no angina while hospitalized. He has declined cardiac catheterization despite discussion regarding risks and benefits and the fact that he was having exertional symptoms pre hospital. Therefore, will continue to adjust medical therapy. Increase metoprolol to 50 mg twice daily. As he is on long-term anticoagulation therapy, would discontinue Plavix now that there is no plan for catheterization and possible intervention. Continue aspirin 81 mg daily. 2. Cardiomyopathy: Has had increased diuretic need as an outpatient leading up to hospitalization. Has taken Lasix p.r.n. at home., he is quite positive d uring this hospital stay. Consider starting Lasix 20 mg p.o. once daily on a scheduled basis. Would try to maintain slightly net negative fluid balance given reduced LV systolic function. Although starting with metoprolol tartrate, on discharge would recommend metoprolol succinate given reduced LV systolic function. Is on lisinopril. If affordable, consider Entresto in place of lisinopril after holding lisinopril for 36 hours. 3. Sinus tachycardia: Likely due to reduced LV systolic function and also UTI/pyelonephritis/bacteremia. He is asymptomatic. Heart rate has improved. Clinically improving. 4. Bacteremia/pyelonephritis/UTI: As per primary service. He appears to be improving clinically. 5. Disposition: Will arrange heart failure program enrollment. Communicated with Dottie Walker. He is agreeable. Please call with any other questions or concerns. Admission and Anticipated Discharge Date Admission Date: April 24, 2021 Subjective He was seen this morning. Denies chest pain. No significant shortness of breath, chest pain, syncope, near-syncope, palpitations, or bleeding. He feels pretty much back to baseline. Review of systems: As above. Physical Exam Physical Exam: Gen.: No acute distress. Alert and oriented. HEENT: Anicteric sclera. Neck: No obvious JVD. Cardiac: PMI was nonpalpable. No ventricular heave. Regular. Normal S1-S2. No murmurs, rubs, or gallops. Pulmonary: Clear to auscultation bilaterally without wheezes, rales, or rhonchi. Abdomen: Soft, nontender, nondistended, with normoactive bowel sounds. No bruits noted. Extremities: 2+ radial pulses bilaterally. 2+ posterior tibialis pulses bilaterally. Trace bilateral lower extremity edema. No cyanosis. Psychiatric: Affect appears appropriate. Results & Data ([facility]) Vital Signs (Past 12 Hours) Vital Signs Temp Pulse Pulse Resp BP Pulse Ox 04/26/21 11:08 36.3 C L 84 17 116/71 93 04/26/21 08:02 36.9 C 91 H 20 101/65 93 04/26/21 08:00 97 H 04/26/21 03:12 37.1 C 96 H 20 113/73 92 Intake & Output 04/24/21 04/25/21 04/26/21 04/27/21 06:59 06:59 06:59 06:59 Intake Total 4096 / 4096 3582.033 / 3582.033 129.5 / 129.5 Output Total 801 / 801 1901 / 1901 Balance 3295 / 3295 1681.033 / 1681.033 129.5 / 129.5 Weight 216 lb 14.958 oz 223 lb 1.725 oz Laboratory Results Laboratory Results - last 24 hr 04/25/21 04/25/21 04/25/21 16:40 18:07 20:30 WBC RBC Hgb Hct MCV MCH MCHC RDW Std Deviation RDW Coeff of Radha Plt Count MPV Immature Gran % (Auto) Neut % (Auto) Lymph % (Auto) [place] % (Auto) Eos % (Auto) Baso % (Auto) Neut # (Auto) Lymph # (Auto) [place] # (Auto) Eos # (Auto) Baso # (Auto) Immature Gran # (Auto) APTT PTT Ratio Sodium Potassium Chloride Carbon Dioxide Anion Gap BUN Creatinine Est Cr Clr Drug Dosing Est GFR ( Amer) Est GFR (Non-Af Amer) BUN/Creatinine Ratio Glucose POC Glucose 176 H 142 H Calcium Phosphorus Magnesium Troponin I 10.800 H* 04/26/21 04/26/21 04/26/21 00:38 00:38 06:34 WBC 7.77 RBC 3.38 L Hgb 10.1 L Hct 30.0 L MCV 88.8 MCH 29.9 MCHC 33.7 RDW Std Deviation 43.0 RDW Coeff of Radha 13.2 Plt Count 171 MPV 10.6 H Immature Gran % (Auto) 0.3 Neut % (Auto) 75.0 Lymph % (Auto) 15.7 [place] % (Auto) 7.7 Eos % (Auto) 0.9 Baso % (Auto) 0.4 Neut # (Auto) 5.83 Lymph # (Auto) 1.22 [place] # (Auto) 0.60 H Eos # (Auto) 0.07 Baso # (Auto) 0.03 Immature Gran # (Auto) 0.02 APTT 40.0 H PTT Ratio 1.5 Sodium Potassium Chloride Carbon Dioxide Anion Gap BUN Creatinine Est Cr Clr Drug Dosing Est GFR ( Amer) Est GFR (Non-Af Amer) BUN/Creatinine Ratio Glucose POC Glucose Calcium Phosphorus Magnesium Troponin I 9.270 H* 04/26/21 04/26/21 04/26/21 06:34 06:34 07:06 WBC RBC Hgb Hct MCV MCH MCHC RDW Std Deviation RDW Coeff of Radha Plt Count MPV Immature Gran % (Auto) Neut % (Auto) Lymph % (Auto) [place] % (Auto) Eos % (Auto) Baso % (Auto) Neut # (Auto) Lymph # (Auto) [place] # (Auto) Eos # (Auto) Baso # (Auto) Immature Gran # (Auto) APTT 42.9 H PTT Ratio 1.6 Sodium 131 L Potassium 3.6 Chloride 98 Carbon Dioxide 28 Anion Gap 5.0 BUN 15 Creatinine 0.90 Est Cr Clr Drug Dosing 95.4 Est GFR ( Amer) 100.6 Est GFR (Non-Af Amer) 86.8 BUN/Creatinine Ratio 16.2 Glucose 147 H POC Glucose 150 H Calcium 8.2 L Phosphorus 3.4 Magnesium 2.1 Troponin I 6.310 H* 04/26/21 04/26/21 04/26/21 11:38 12:59 12:59 WBC RBC Hgb 10.3 L Hct 30.8 L MCV MCH MCHC RDW Std Deviation RDW Coeff of Radha Plt Count MPV Immature Gran % (Auto) Neut % (Auto) Lymph % (Auto) [place] % (Auto) Eos % (Auto) Baso % (Auto) Neut # (Auto) Lymph # (Auto) [place] # (Auto) Eos # (Auto) Baso # (Auto) Immature Gran # (Auto) APTT 38.7 H PTT Ratio 1.5 Sodium Potassium Chloride Carbon Dioxide Anion Gap BUN Creatinine Est Cr Clr Drug Dosing Est GFR ( Amer) Est GFR (Non-Af Amer) BUN/Creatinine Ratio Glucose POC Glucose 251 H Calcium Phosphorus Magnesium Troponin I Diagnostic Findings Telemetry personally reviewed: Sinus rhythm. Heart rate has improved. Medications Administered Current Inpatient Medications Acetaminophen (Acetaminophen 325 Mg Tab) 650 mg PO Q4 PRN PRN Reason: Pain Stop: 05/24/21 19:41 Allopurinol (Allopurinol 300 Mg Tab) 300 mg PO DAILY REPLACED BY [facility] Stop: 05/25/21 08:59 Last Admin: 04/26/21 08:09 Dose: 300 mg Documented by: Aspirin (Aspirin 81 Mg Ectab) 81 mg PO QAM REPLACED BY [facility] Stop: 05/26/21 08:59 Last Admin: 04/26/21 08:08 Dose: 81 mg Documented by: Atorvastatin Calcium (Atorvastatin 40 Mg Tab) 40 mg PO [facility] Stop: 05/24/21 20:59 Last Admin: 04/25/21 21:26 Dose: 40 mg Documented by: Clopidogrel Bisulfate (Clopidogrel Bisulfate 75 Mg Tab) 75 mg PO QAM REPLACED BY [facility] Stop: 05/25/21 08:59 Last Admin: 04/26/21 08:11 Dose: 75 mg Documented by: Dextrose (Dextrose 50% 50 Ml Syringe) 25 - 50 ml IV UD PRN; Protocol PRN Reason: Hypoglycemia Protocol Stop: 05/24/21 19:41 Docusate Sodium (Docusate Sodium 100 Mg Cap) 100 mg PO BID REPLACED BY [facility] Stop: 05/24/21 20:59 Last Admin: 04/26/21 08:08 Dose: 100 mg Documented by: Famotidine (Famotidine 40 Mg Tablet) 40 mg PO HS REPLACED BY [facility] Stop: 05/25/21 20:59 Last Admin: 04/25/21 21:26 Dose: 40 mg Documented by: Gabapentin (Gabapentin 300 Mg Cap) 300 mg PO TID REPLACED BY [facility] Stop: 05/24/21 20:59 Last Admin: 04/26/21 13:06 Dose: 300 mg Documented by: Glucagon (Glucagon For Inj 1 Mg Vial) 1 mg SQ UD PRN; Protocol PRN Reason: Hypoglycemia Protocol Stop: 05/24/21 19:41 Glucose (Glucose 10 Tabs/Tube) 4 - 8 tabs PO UD PRN; Protocol PRN Reason: Hypoglycemia Protocol Stop: 05/24/21 19:41 Glucose (Glucose 40% Gel 15 Gm Tube) 15 - 30 gm PO UD PRN; Protocol PRN Reason: Hypoglycemia Protocol Stop: 05/24/21 19:41 Ceftriaxone Sodium 2,000 mg/ (Dextrose) 70 mls @ 100 mls/hr IV Q24H REPLACED BY [facility]; Protocol Stop: 05/04/21 11:59 Last Admin: 04/26/21 12:22 Dose: 42 mls/hr Documented by: Heparin Sodium/Dextrose (Heparin Sodium/Dextrose) 25,000 units in 500 mls @ 39 mls/hr IV .[id number] REPLACED BY [facility]; Protocol Stop: 05/24/21 19:41 Last Admin: 04/26/21 09:40 Dose: Not Given Documented by: Insulin Aspart (Insulin Aspart 100 Units/Ml 3 Ml Pen) 0 units SC ACHS REPLACED BY [facility] Stop: 05/24/21 20:59 Last Admin: 04/26/21 12:19 Dose: 4 units Documented by: Levothyroxine Sodium (Levothyroxine Sodium 112 Mcg Tablet) 112 mcg PO DAILYBB REPLACED BY [facility] Stop: 05/25/21 06:29 Last Admin: 04/26/21 03:41 Dose: 112 mcg Documented by: Lisinopril (Lisinopril 2.5 Mg Tab) 2.5 mg PO QAM REPLACED BY [facility] Stop: 05/25/21 10:44 Last Admin: 04/26/21 08:09 Dose: 2.5 mg Documented by: Loratadine (Loratadine 10 Mg Tab) 10 mg PO DAILY REPLACED BY [facility] Stop: 05/25/21 08:59 Last Admin: 04/26/21 08:08 Dose: 10 mg Documented by: Metoprolol Tartrate (Metoprolol Tartrate 25 Mg Tab) 25 mg PO BID REPLACED BY [facility] Stop: 05/25/21 19:29 Last Admin: 04/26/21 08:09 Dose: 25 mg Documented by: Miscellaneous (Carbohydrates For Hypoglycemia ) 15 - 30 gm PO UD PRN PRN Reason: Hypoglycemia Protocol Stop: 05/24/21 19:41 Nitroglycerin (Nitroglycerin Sl 0.4 Mg/Tab Tab) 0.4 mg SL Q5M PRN PRN Reason: Chest Pain Stop: 05/25/21 08:36 Ondansetron HCl (Ondansetron Inj 2 Mg/Ml 2 Ml Vial) 4 mg IV Q6H PRN PRN Reason: Nausea Stop: 05/24/21 19:41 Last Admin: 04/24/21 20:25 Dose: 4 mg Documented by: Pantoprazole Sodium (Pantoprazole 40 Mg Tab) 40 mg PO DAILY REPLACED BY [facility]; Protocol Stop: 05/25/21 08:59 Last Admin: 04/26/21 08:09 Dose: 40 mg Documented by: Psyllium Hydrophilic Mucilloid (Psyllium 58.6% Powder Packet) 1 pkt PO DAILY [facility] Stop: 05/25/21 08:59 Last Admin: 04/26/21 08:09 Dose: 1 pkt Documented by: Senna/Docusate Sodium (Docusate Sodium/Senna 50/8.6mg Tab) 1 tab PO QDL PRN PRN Reason: Constipation Stop: 05/24/21 19:41 Tamsulosin HCl (Tamsulosin Hcl 0.4 Mg Cap) 0.4 mg PO HS REPLACED BY [facility] Stop: 05/24/21 20:59 Last Admin: 04/25/21 21:25 Dose: 0.4 mg Documented by: PG Care Time/CCT Total # of Minutes Spent Total Time Spent with Patient: Total time spent is greater than 50% in coordination of care (as documented) at patient's floor/unit and/or counseling patient: Coding Level of Care Code 95369 Subseq Hosp Care Lvl 3 Diagnoses Acute non-ST elevation myocardial infarction (NSTEMI) I21.4 Cardiomyopathy I42.9 Sinus tachycardia R00.0
[2021-04-26] MEDS: FUROSEMIDE 20 MG TAB PO SCH (17:58)
--- NOTE | 2021-04-26 18:45 | Billing Data ---
Date of Service April 26, 2021 Coding Level of Care Code 12006 Prolonged Care (int'l)
--- NOTE | 2021-04-26 18:45 | Billing Data ---
Date of Service April 26, 2021 Coding Level of Care Code 51922 Subseq Hosp Care Lvl 3
[2021-04-26] MEDS: ATORVASTATIN 40 MG TAB PO SCH (20:26)
[2021-04-26] MEDS: FAMOTIDINE 40 MG TABLET PO SCH (20:27)
[2021-04-26] MEDS: METOPROLOL TARTRATE 50 MG TAB PO SCH (20:28)
[2021-04-26] MEDS: TAMSULOSIN HCL 0.4 MG CAP PO SCH (20:31)
[2021-04-26 20:48] LABS: Partial Thromboplastin Ratio 1.3; Partial Thromboplastin Time 34.4 Seconds (21.0-31.0)
[2021-04-26] MEDS ORDERED: HEPARIN SOD (PORCINE) 1000 UNIT/ML IV ONE (22:30)
[2021-04-27 03:36] LABS: Basophils # (auto) 0.02 K/uL (0-0.2); Basophils % (auto) 0.3 %; Eosinophils # (auto) 0.08 K/uL (0-0.5); Eosinophils % (auto) 1.3 %; Hematocrit (blood only) 31.2 % (42-52); Hemoglobin 10.6 g/dL (14.0-18.0); Immature Granulocytes # (auto) 0.01 K/uL (0.00-0.02); Immature Granulocytes % (auto) 0.2 %; Lymphocytes # (auto) 1.17 K/uL (1.2-3.4); Lymphocytes % (auto) 18.5 %; Mean Corpuscular Hemoglobin 30.1 pg (25-34); Mean Corpuscular Volume 88.6 fL (80-100); Mean Platelet Volume 10.5 fL (7.4-10.4); Monocytes # (auto) 0.55 K/uL (0.11-0.59); Monocytes % (auto) 8.7 %; Platelet Count 186 K/uL (130-400); RDW Coefficient of Variation 13.2 % (11.5-14.5); RDW Standard Deviation 42.5 fL (36.4-46.3); Red Blood Count 3.52 M/uL (4.7-6.1); White Blood Count 6.33 K/uL (4.8-10.8)
[2021-04-27] MEDS: HEPARIN SODIUM/DEXTROSE 25,000 UNITS/500 ML BAG IV SCH ×3 (03:48→17:28)
[2021-04-27 03:53] LABS: BUN Creatinine Ratio 16.7 (10-20); Calcium 8.2 mg/dl (8.5-10.1); Creatinine Clr Calc Pharmacy 93.3 ml/min; Est GFR (Non-African American) 84.6 ml/min; Magnesium 2.1 mg/dl (1.8-2.4); Phosphorus 3.3 mg/dl (2.5-4.9); Potassium 3.7 mmol/L (3.5-5.1)
[2021-04-27 03:57] LABS: Partial Thromboplastin Ratio 1.7; Partial Thromboplastin Time 44.2 Seconds (21.0-31.0)
--- NOTE | 2021-04-27 05:36 | Electrocardiogram Report ---
Test Reason : Blood Pressure : / mmHG Vent. Rate : 110 BPM Atrial Rate : 110 BPM P-R Int : 138 ms QRS Dur : 094 ms QT Int : 362 ms P-R-T Axes : 036 -14 -38 degrees QTc Int : 489 ms Sinus tachycardia Nonspecific T wave abnormality Abnormal ECG When compared with ECG of 26-FEB-2021 18:14, Nonspecific T wave abnormality, worse in Inferior leads Nonspecific T wave abnormality, worse in Lateral leads Confirmed by Bean Casillas ([id number]) on 04/27/2021 5:36:03 AM Referred By: Liz Kirby Confirmed By:Bean Casillas
--- NOTE | 2021-04-27 05:59 | Electrocardiogram Report ---
Test Reason : Blood Pressure : / mmHG Vent. Rate : 109 BPM Atrial Rate : 109 BPM P-R Int : 152 ms QRS Dur : 094 ms QT Int : 386 ms P-R-T Axes : 066 001 -86 degrees QTc Int : 519 ms Sinus tachycardia Prolonged QT Abnormal ECG When compared with ECG of 24-APR-2021 13:32, T wave inversion more evident in Inferolateral leads QT has lengthened Confirmed by Bean Casillas ([id number]) on 04/27/2021 5:58:57 AM Referred By: Liz Kirby Confirmed By:Bean Casillas
[2021-04-27] MEDS: LEVOTHYROXINE SODIUM 112 MCG TABLET PO SCH (06:25)
[2021-04-27] MEDS: CLOPIDOGREL BISULFATE 75 MG TAB PO SCH (08:11)
[2021-04-27] MEDS: lisinopril 2.5 MG TAB PO SCH (08:11)
[2021-04-27] MEDS: ASPIRIN 81 MG ECTAB PO SCH (08:11)
[2021-04-27] MEDS: FUROSEMIDE 20 MG TAB PO SCH (08:11)
[2021-04-27] MEDS: PANTOprazole 40 MG TAB PO SCH (08:11)
[2021-04-27] MEDS: LORATADINE 10 MG TAB PO SCH (08:11)
[2021-04-27] MEDS: METOPROLOL TARTRATE 50 MG TAB PO SCH ×2 (08:11→20:44)
[2021-04-27] MEDS: GABAPENTIN 300 MG CAP PO SCH ×3 (08:12→20:43)
[2021-04-27] MEDS: allopurinoL 300 MG TAB PO SCH (08:12)
[2021-04-27] MEDS: DOCUSATE SODIUM 100 MG CAP PO SCH ×2 (08:13→20:44)
[2021-04-27] MEDS: INSULIN ASPART 100 UNITS/ML 3 ML PEN SC SCH ×4 (08:14→20:45)
[2021-04-27] MEDS: PSYLLIUM 58.6% POWDER PACKET PO SCH (08:14)
[2021-04-27 11:26] LABS: Partial Thromboplastin Ratio 1.8
[2021-04-27 11:33] LABS: Partial Thromboplastin Time 46.8 Seconds (21.0-31.0)
--- NOTE | 2021-04-27 12:00 | Cardiology Progress Note ---
Date of Service April 27, 2021 Assessment & Plan (1) Acute non-ST elevation myocardial infarction (NSTEMI): (2) Cardiomyopathy: (3) Sinus tachycardia: Plan: ASSESSMENT/PLAN: 1. Acute NSTEMI: Had exertional angina over the past several months but no angina while hospitalized. Continues to deny angina here. He has agreed for cardiac catheterization which was tentatively planned for today however had fever last evening. There is no urgency for cardiac catheterization as he has not had any further angina and he is now on beta-kan therapy for medical management. Discontinue Plavix as he is also on aspirin and anticoagulation therapy. Would reconsider cardiac catheterization once improved from an infectious standpoint. 2. Cardiomyopathy: Appears hypervolemic. Lasix started yesterday and appears to be diuresing well. Can titrate Lasix as necessary. Metoprolol tartrate replaced with metoprolol succinate. If affordable, would recommend starting low-dose Entresto at least 36 hours after last dose of lisinopril (communicated with primary service). If not affordable, would recommend increasing lisinopril to 5 mg daily. 3. Chronic systolic CHF: Hypervolemic on examination but overall asymptomatic. Oral diuretic initiated yesterday and diuresing well. Could further titrate if necessary. Low-sodium diet. Strict I&Os. Daily weights. Heart failure program as been initiated. 4. Sinus tachycardia: Likely due to reduced LV systolic function and also UTI/pyelonephritis/bacteremia. He is asymptomatic. Heart rate has improved. 5. Bacteremia/pyelonephritis/UTI: As per primary service. Recurrent low-grade fever 04/26/2021 evening. 6. Disposition: Cardiology will continue to follow. Plan of care communicated with primary hospitalist service, Dr. Landaverde. Admission and Anticipated Discharge Date Admission Date: April 24, 2021 Subjective Yesterday was notified that he had decided to undergo cardiac catheterization as previously recommended and tentatively, the procedure was planned for today. Was then notified by primary service that he became febrile last evening and that repeat blood cultures were ordered. Cardiac catheterization on hold. He denies chest pain, shortness of breath, syncope, orthopnea, palpitations, or bleeding. He was alone in his hospital room. Review of systems: As above. Physical Exam Physical Exam: Gen.: No acute distress. Alert and oriented. HEENT: Anicteric sclera. Neck: Elevated JVD and hepatic jugular reflux noted. Cardiac: PMI was nonpalpable. No ventricular heave. Regular. Normal S1-S2. No murmurs, rubs, or gallops. Pulmonary: Clear to auscultation bilaterally without wheezes, rales, or rhonchi. Abdomen: Soft, nontender, nondistended, with normoactive bowel sounds. No bruits noted. Extremities: 2+ radial pulses bilaterally. 2+ posterior tibialis pulses bilaterally. Trace bilateral lower extremity edema. No cyanosis. Psychiatric: Affect appears appropriate. Results & Data ([facility]) Vital Signs (Past 12 Hours) Vital Signs Temp Pulse Pulse Resp BP Pulse Ox 04/27/21 11:25 36.8 C 75 18 117/73 04/27/21 08:00 37.2 C 88 16 132/64 99 04/27/21 07:00 82 04/27/21 03:52 37.3 C 85 18 120/77 92 Intake & Output 04/25/21 04/26/21 04/27/21 04/28/21 06:59 06:59 06:59 06:59 Intake Total 4096 / 4096 3582.033 / 3582.033 1310.000 / 1310.000 720.734 / 720.734 Output Total 801 / 801 1901 / 1901 2100 / 2100 1350 / 1350 Balance 3295 / 3295 1681.033 / 1681.033 -790.000 / -790.000 -629.266 / -629.266 Weight 216 lb 14.958 oz 223 lb 1.725 oz 217 lb 13.067 oz Laboratory Results Laboratory Results - last 24 hr 04/26/21 04/26/21 04/26/21 12:59 12:59 16:40 WBC RBC Hgb 10.3 L Hct 30.8 L MCV MCH MCHC RDW Std Deviation RDW Coeff of Radha Plt Count MPV Immature Gran % (Auto) Neut % (Auto) Lymph % (Auto) [place] % (Auto) Eos % (Auto) Baso % (Auto) Neut # (Auto) Lymph # (Auto) [place] # (Auto) Eos # (Auto) Baso # (Auto) Immature Gran # (Auto) APTT 38.7 H PTT Ratio 1.5 Sodium Potassium Chloride Carbon Dioxide Anion Gap BUN Creatinine Est Cr Clr Drug Dosing Est GFR ( Amer) Est GFR (Non-Af Amer) BUN/Creatinine Ratio Glucose POC Glucose 163 H Calcium Phosphorus Magnesium 04/26/21 04/26/21 04/27/21 20:21 20:44 03:22 WBC 6.33 RBC 3.52 L Hgb 10.6 L Hct 31.2 L MCV 88.6 MCH 30.1 MCHC 34.0 RDW Std Deviation 42.5 RDW Coeff of Radha 13.2 Plt Count 186 MPV 10.5 H Immature Gran % (Auto) 0.2 Neut % (Auto) 71.0 Lymph % (Auto) 18.5 [place] % (Auto) 8.7 Eos % (Auto) 1.3 Baso % (Auto) 0.3 Neut # (Auto) 4.50 Lymph # (Auto) 1.17 L [place] # (Auto) 0.55 Eos # (Auto) 0.08 Baso # (Auto) 0.02 Immature Gran # (Auto) 0.01 APTT 34.4 H PTT Ratio 1.3 Sodium Potassium Chloride Carbon Dioxide Anion Gap BUN Creatinine Est Cr Clr Drug Dosing Est GFR ( Amer) Est GFR (Non-Af Amer) BUN/Creatinine Ratio Glucose POC Glucose 197 H Calcium Phosphorus Magnesium 04/27/21 04/27/21 04/27/21 03:22 03:22 07:28 WBC RBC Hgb Hct MCV MCH MCHC RDW Std Deviation RDW Coeff of Radha Plt Count MPV Immature Gran % (Auto) Neut % (Auto) Lymph % (Auto) [place] % (Auto) Eos % (Auto) Baso % (Auto) Neut # (Auto) Lymph # (Auto) [place] # (Auto) Eos # (Auto) Baso # (Auto) Immature Gran # (Auto) APTT 44.2 H PTT Ratio 1.7 Sodium 131 L Potassium 3.7 Chloride 97 L Carbon Dioxide 28 Anion Gap 6.0 BUN 15 Creatinine 0.92 Est Cr Clr Drug Dosing 93.3 Est GFR ( Amer) 98.0 Est GFR (Non-Af Amer) 84.6 BUN/Creatinine Ratio 16.7 Glucose 176 H POC Glucose 192 H Calcium 8.2 L Phosphorus 3.3 Magnesium 2.1 04/27/21 04/27/21 10:45 11:08 WBC RBC Hgb Hct MCV MCH MCHC RDW Std Deviation RDW Coeff of Radha Plt Count MPV Immature Gran % (Auto) Neut % (Auto) Lymph % (Auto) [place] % (Auto) Eos % (Auto) Baso % (Auto) Neut # (Auto) Lymph # (Auto) [place] # (Auto) Eos # (Auto) Baso # (Auto) Immature Gran # (Auto) APTT 46.8 H* PTT Ratio 1.8 Sodium Potassium Chloride Carbon Dioxide Anion Gap BUN Creatinine Est Cr Clr Drug Dosing Est GFR ( Amer) Est GFR (Non-Af Amer) BUN/Creatinine Ratio Glucose POC Glucose 252 H Calcium Phosphorus Magnesium Diagnostic Findings Telemetry personally reviewed: Sinus rhythm. Improved heart rate. Medications Administered Current Inpatient Medications Acetaminophen (Acetaminophen 325 Mg Tab) 650 mg PO Q4 PRN PRN Reason: Pain Stop: 05/24/21 19:41 Allopurinol (Allopurinol 300 Mg Tab) 300 mg PO DAILY [facility] Stop: 05/25/21 08:59 Last Admin: 04/27/21 08:12 Dose: 300 mg Documented by: Aspirin (Aspirin 81 Mg Ectab) 81 mg PO [facility] Stop: 05/26/21 08:59 Last Admin: 04/27/21 08:11 Dose: 81 mg Documented by: Atorvastatin Calcium (Atorvastatin 40 Mg Tab) 40 mg PO [facility] Stop: 05/24/21 20:59 Last Admin: 04/26/21 20:26 Dose: 40 mg Documented by: Clopidogrel Bisulfate (Clopidogrel Bisulfate 75 Mg Tab) [facility] Stop: 05/25/21 08:59 Last Admin: 04/27/21 08:11 Dose: 75 mg Documented by: Dextrose (Dextrose 50% 50 Ml Syringe) 25 - 50 ml IV UD PRN; Protocol PRN Reason: Hypoglycemia Protocol Stop: 05/24/21 19:41 Docusate Sodium (Docusate Sodium 100 Mg Cap) 100 mg PO BID [facility] Stop: 05/24/21 20:59 Last Admin: 04/27/21 08:13 Dose: 100 mg Documented by: Famotidine (Famotidine 40 Mg Tablet) 40 mg PO [facility] Stop: 05/25/21 20:59 Last Admin: 04/26/21 20:27 Dose: 40 mg Documented by: Furosemide (Furosemide 20 Mg Tab) [facility] [place] Stop: 05/26/21 16:44 Last Admin: 04/27/21 08:11 Dose: 20 mg Documented by: Gabapentin (Gabapentin 300 Mg Cap) 300 mg PO TID [facility] Stop: 05/24/21 20:59 Last Admin: 04/27/21 08:12 Dose: 300 mg Documented by: Glucagon (Glucagon For Inj 1 Mg Vial) 1 mg SQ UD PRN; Protocol PRN Reason: Hypoglycemia Protocol Stop: 05/24/21 19:41 Glucose (Glucose 10 Tabs/Tube) 4 - 8 tabs PO UD PRN; Protocol PRN Reason: Hypoglycemia Protocol Stop: 05/24/21 19:41 Glucose (Glucose 40% Gel 15 Gm Tube) 15 - 30 gm PO UD PRN; Protocol PRN Reason: Hypoglycemia Protocol Stop: 05/24/21 19:41 Ceftriaxone Sodium 2,000 mg/ (Dextrose) 70 mls @ 100 mls/hr IV Q24H [facility]; Protocol Stop: 05/04/21 11:59 Last Infusion: 04/26/21 14:17 Dose: Infused Documented by: Heparin Sodium/Dextrose (Heparin Sodium/Dextrose) 25,000 units in 500 mls @ 46 mls/hr IV .[id number] [facility]; Protocol Stop: 05/24/21 19:41 Last Titration: 04/27/21 11:39 Dose: 2,300 units/hr, 46 mls/hr Documented by: Insulin Aspart (Insulin Aspart 100 Units/Ml 3 Ml Pen) 0 units SC ACHS [facility] Stop: 05/24/21 20:59 Last Admin: 04/27/21 08:14 Dose: 3 units Documented by: Levothyroxine Sodium (Levothyroxine Sodium 112 Mcg Tablet) 112 mcg PO DAILYBB [facility] Stop: 05/25/21 06:29 Last Admin: 04/27/21 06:25 Dose: 112 mcg Documented by: Lisinopril (Lisinopril 2.5 Mg Tab) 2.5 mg PO QAM [facility] Stop: 05/25/21 10:44 Last Admin: 04/27/21 08:11 Dose: 2.5 mg Documented by: Loratadine (Loratadine 10 Mg Tab) 10 mg PO DAILY [facility] Stop: 05/25/21 08:59 Last Admin: 04/27/21 08:11 Dose: 10 mg Documented by: Metoprolol Tartrate (Metoprolol Tartrate 50 Mg Tab) 50 mg PO BID [facility] Stop: 05/26/21 20:59 Last Admin: 04/27/21 08:11 Dose: 50 mg Documented by: Miscellaneous (Carbohydrates For Hypoglycemia ) 15 - 30 gm PO UD PRN PRN Reason: Hypoglycemia Protocol Stop: 05/24/21 19:41 Nitroglycerin (Nitroglycerin Sl 0.4 Mg/Tab Tab) 0.4 mg SL Q5M PRN PRN Reason: Chest Pain Stop: 05/25/21 08:36 Ondansetron HCl (Ondansetron Inj 2 Mg/Ml 2 Ml Vial) 4 mg IV Q6H PRN PRN Reason: Nausea Stop: 05/24/21 19:41 Last Admin: 04/24/21 20:25 Dose: 4 mg Documented by: Pantoprazole Sodium (Pantoprazole 40 Mg Tab) 40 mg PO DAILY [facility]; Protocol Stop: 05/25/21 08:59 Last Admin: 04/27/21 08:11 Dose: 40 mg Documented by: Psyllium Hydrophilic Mucilloid (Psyllium 58.6% Powder Packet) 1 pkt PO DAILY [facility] Stop: 05/25/21 08:59 Last Admin: 04/27/21 08:14 Dose: 1 pkt Documented by: Senna/Docusate Sodium (Docusate Sodium/Senna 50/8.6mg Tab) 1 tab PO QDL PRN PRN Reason: Constipation Stop: 05/24/21 19:41 Tamsulosin HCl (Tamsulosin Hcl 0.4 Mg Cap) 0.4 mg PO HS [facility] Stop: 05/24/21 20:59 Last Admin: 04/26/21 20:31 Dose: 0.4 mg Documented by: PG Care Time/CCT Total # of Minutes Spent Total Time Spent with Patient: Total time spent is greater than 50% in coordination of care (as documented) at patient's floor/unit and/or counseling patient: Coding Level of Care Code 16609 Subseq Hosp Care Lvl 3 Diagnoses Acute non-ST elevation myocardial infarction (NSTEMI) I21.4 Cardiomyopathy I42.9 Sinus tachycardia R00.0
[2021-04-27] MEDS: cefTRIAXone SODIUM 2,000 MG in DEXTROSE 5% 50 ML IV SCH (12:04)
--- NOTE | 2021-04-27 14:30 | Hospitalist Progress Note ---
Date of Service April 27, 2021 Assessment & Plan (1) Catheter-associated urinary tract infection: Plan: Frederic Camejo III is a 70-year-old male with past medical history significant for spinal cord injury/cauda equina syndrome, urinary retention with need for daily self catheterization, and T2DM who was admitted to [facility] on 04/24 for sepsis due to catheter-associated UTI; also found to have NSTEMI. Sepsis due to Catheter-associated UTI, with Bacteremia Daily catheterizations with several days of urinary symptoms and fever/chills with decreased PO intake. Blood/urine cx growing E. coli sensitive to CTX. CT A/P with evidence of cystitis + right pyelonephritis. - febrile yesterday, likely in context of resolving infection - repeat blood cx ordered today - results pending - continue Ceftriaxone 2g IV Q24H for now(today is day 12/04) - transition to PO tomorrow if remains afebrile/hemodynamically stable - cautious repletion with 250-500cc NSS bolus if VS worsen - CBC daily Pulmonary Embolism/NSTEMI Recent diagnosis of right upper lobe PE - was on Eliquis 5mg PO BID for this. H/o stable angina, Troponin peaked at 12.6 on 04/25, with ST depressions and T- wave inversions on EKG --> NSTEMI. - Cardiology consulted - appreciate recs - NPO for possible cardiac catheterization tomorrow - transitioned to Heparin gtt on admission - continue - plan to re-start Eliqiuis on discharge - Plavix stopped today as patient is now more stable, on cardiac meds, and needs ongoing anti-coagulation - Metoprolol changed to succinate 100mg PO daily - will consider changing Lisinopril to Entresto 24/26mg BID, to start tomorrow evening (assuming affordability) - continue Aspirin and Atorvastatin 40mg PO QHS - EKG PRN for chest pain - SL Nitro PRN for chest pain HFrEF New diagnosis per TTE today - showing EF 35-40%, moderately reduced LV systolic function, and severe hypokinesis/akinesis of mid-distal inferior wall as well as global hypokinesis. Suspect ischemic cardiomyopathy. - Cardiology consulted as stated above - appreciate recs - continue Lasix 20mg PO daily - other med management plan as stated above - consider transition from Lisinopril to Entresto given superior data in setting of HFrEF - would benefit from f/u with [facility] Failure [facility] after discharge Normocytic Anemia Hgb 11.6 --> 10.1 --> 10.6 today. Baseline 12-14 in the last several months. In context of recent addition of several blood thinners. Possibly due to lab error. - currently hemodynamically stable without signs of active bleeding - FOBT ordered - results pending Cauda Equina Syndrome/Urinary Retention - continue PRN straight urinary caths and home meds T2DM A1c 6.9 this admission. At goal (<7). - hold Metformin/Glimepiride while admitted - SSI while hospitalized - f/u with PCP, consider tapering down regimen given A1c Hypothyroidism - continue home Synthroid GERD - continue Protonix per hospital formulary and home Pepcid FEN/GI: DM2/heart-healthy diet, NPO at midnight for possible cath tomorrow DVT Prophylaxis: Heparin gtt Code Status: full code Disposition: PCU w/ tele (2) Pulmonary embolus: (3) Troponin level elevated: (4) Diabetes: (5) Cauda equina compression: Admission and Anticipated Discharge Date Admission Date: April 24, 2021 Supervising Physician Co-Signing Physician Notes I personally examined the patient and verified all constantino points of history and exam, discussed case, and agree with decision making with Dr Landaverde. Had a temperature late yesterday afternoon. None since. Overall feeling physically betterbut notes that he just feels a bit downlargely about the situation. Vitals noted, in general he is awake and alert pleasant no distress. HEENT normocephalic atraumatic mucous membranes moist. Breathing unlabored no accessory muscle use good effort. Skin shows no rashes no pallor or icterus. Buttocks wounds are dressed, no tracking erythema. Complicated UTI related to self-catheterization with pyelonephritis, sepsis, and bacteremia present on admission -improving. E. coli in urine sensitive to ceftriaxone, with blood cultures showing the same. Fever yesterdaybut no signs or symptoms of new infectionshe does pressure ulcer on buttock but no cellulitishighly unlikely to account for fever. He has no bony or spinal tenderness or crepitushighly unlikely to be spinal. Shows no signs or symptoms of pneumonia or C. difficile, or other new infectionhighly suspect, especially given that it was within 48 hours of initiation of antibiotics, that the fever is simply residual from the known [place]/sepsis/bacteremia picture. Previously educated on possible holes in clean/sterile technique as it relates to his self cath procedures, asked him to have nursing guide him given that he is new to this and they do it all the time, especially given that he notes nursing was able to drain things faster than he usually can. Recommended we move to sterile flushes instead of apple cider vinegar. Discussed cranberry tabs as another suppressive agentgiven that we also discussed risk benefit of prophylactic antibiotics likely leading to more rapid antibiotic resistance bacteria, although given that he has had 3 infections since initiating self cathing, with this particular one being life-threatening, it would not be unreasonable. For now given that we have a lot of potentials for improvement, will work on those before exposing him to the risk of prophylactic antibiotics. Also recommended 60 to 80 ounces of fluids a day to maintain hydration so that his bladder is not a "stagnant pond" NSTEMIalmost certainly related to physiologic stress from above, but definitely higher than one would normally see just from demand ischemia. Furthermore, echo shows wall motion abnormalities that seem to exceed our troponin elevation, giving me concerned that he has had silent MIs at home before as well. Agree with delaying cath today because of fever, but assuming he remains afebrile, anticipate cath tomorrow. otherwise as above Subjective Patient had fever 38.2C yesterday at 1700. He also reports waking up this morning diaphoretic. However currently denies fever/chills, chest pain, palpitations, SOB, cough, N/V, abdominal pain, rash. Review of Systems Review of Systems: All systems reviewed & are unremarkable except as noted in Subjective Physical Exam Physical Exam: General: A&Ox3. NAD. Cooperative. HEENT: Atraumatic, normocephalic. Pulm: CTAB A&P. -wheezes, -rales, -rhonchi. Symmetrical chest rise. No increase work of breathing. No respiratory distress. Cardiac: RRR, -mrg. Radial pulses intact and symmetrical. No LE edema Abdominal: soft, mild suprapubic tenderness, no CVA tenderness, abdomen is non-distended and has NA BS x 4 Skin: warm, dry, no rash Results & Data Results & Data ([facility]) Vital Signs (Past 12 Hours) Vital Signs Temp Pulse Pulse Resp BP Pulse Ox 04/27/21 11:25 36.8 C 75 18 117/73 04/27/21 08:00 37.2 C 88 16 132/64 99 04/27/21 07:00 82 04/27/21 03:52 37.3 C 85 18 120/77 92 Resident Activity Tracking Resident Involvement: Resident Care Provided Care Provided: Adult Hospital Medicine (1) Catheter-associated urinary tract infection Encounter type: initial encounter Indwelling urinary catheter type: unspecified Qualified Code(s): T83.511A - Infection and inflammatory reaction due to indwelling urethral catheter, initial encounter; N39.0 - Urinary tract infection, site not specified
--- NOTE | 2021-04-27 17:08 | Billing Data ---
Date of Service April 27, 2021 Coding Level of Care Code 77097 Subseq Hosp Care Lvl 3
[2021-04-27] MEDS: TAMSULOSIN HCL 0.4 MG CAP PO SCH (20:43)
[2021-04-27] MEDS: ATORVASTATIN 40 MG TAB PO SCH (20:44)
[2021-04-27] MEDS: FAMOTIDINE 40 MG TABLET PO SCH (20:44)
[2021-04-28 04:45] LABS: Basophils # (auto) 0.02 K/uL (0-0.2); Basophils % (auto) 0.3 %; Eosinophils # (auto) 0.12 K/uL (0-0.5); Eosinophils % (auto) 1.8 %; Hematocrit (blood only) 32.1 % (42-52); Hemoglobin 10.9 g/dL (14.0-18.0); Immature Granulocytes # (auto) 0.04 K/uL (0.00-0.02); Immature Granulocytes % (auto) 0.6 %; Lymphocytes # (auto) 1.11 K/uL (1.2-3.4); Lymphocytes % (auto) 16.9 %; Mean Corpuscular Hemoglobin 29.8 pg (25-34); Mean Corpuscular Volume 87.7 fL (80-100); Mean Platelet Volume 10.2 fL (7.4-10.4); Monocytes # (auto) 0.71 K/uL (0.11-0.59); Monocytes % (auto) 10.8 %; Neutrophils # (auto) 4.56 K/uL (1.4-6.5); Neutrophils % (auto) 69.6 %; Platelet Count 228 K/uL (130-400); RDW Coefficient of Variation 13.1 % (11.5-14.5); RDW Standard Deviation 42.1 fL (36.4-46.3); Red Blood Count 3.66 M/uL (4.7-6.1); White Blood Count 6.56 K/uL (4.8-10.8)
[2021-04-28] MEDS: LEVOTHYROXINE SODIUM 112 MCG TABLET PO SCH (04:56)
[2021-04-28 05:05] LABS: Partial Thromboplastin Ratio 1.8; Partial Thromboplastin Time 46.5 Seconds (21.0-31.0)
[2021-04-28 05:09] LABS: BUN Creatinine Ratio 16.6 (10-20); Creatinine Clr Calc Pharmacy 102.3 ml/min; Est GFR (African American) 104.1 ml/min; Est GFR (Non-African American) 89.8 ml/min; Magnesium 2.2 mg/dl (1.8-2.4); Phosphorus 3.8 mg/dl (2.5-4.9); Potassium 3.7 mmol/L (3.5-5.1)
[2021-04-28] MEDS: HEPARIN SODIUM/DEXTROSE 25,000 UNITS/500 ML BAG IV SCH (05:19)
--- NOTE | 2021-04-28 06:36 | Electrocardiogram Report ---
Test Reason : Blood Pressure : / mmHG Vent. Rate : 095 BPM Atrial Rate : 095 BPM P-R Int : 154 ms QRS Dur : 086 ms QT Int : 406 ms P-R-T Axes : 070 -17 260 degrees QTc Int : 510 ms Normal sinus rhythm Prolonged QT Abnormal ECG When compared with ECG of 25-APR-2021 03:41, No significant change was found Confirmed by Bean Casillas ([id number]) on 04/28/2021 6:35:50 AM Referred By: Liz Kirby Confirmed By:Bean Casillas
[2021-04-28] MEDS ORDERED: lisinopril 5 MG TAB PO SCH (09:00)
[2021-04-28] MEDS ORDERED: METOPROLOL SUCC 50MG EXT REL TAB PO SCH (09:00)
[2021-04-28] MEDS: INSULIN ASPART 100 UNITS/ML 3 ML PEN SC SCH ×2 (09:00→13:30)
[2021-04-28] MEDS: allopurinoL 300 MG TAB PO SCH (09:03)
[2021-04-28] MEDS: DOCUSATE SODIUM 100 MG CAP PO SCH (09:03)
[2021-04-28] MEDS: LORATADINE 10 MG TAB PO SCH (09:03)
[2021-04-28] MEDS: PANTOprazole 40 MG TAB PO SCH (09:03)
[2021-04-28] MEDS: FUROSEMIDE 20 MG TAB PO SCH (09:04)
[2021-04-28] MEDS: GABAPENTIN 300 MG CAP PO SCH ×2 (09:04→13:34)
[2021-04-28] MEDS: PSYLLIUM 58.6% POWDER PACKET PO SCH (09:04)
[2021-04-28] MEDS: ASPIRIN 81 MG ECTAB PO SCH (09:04)
--- NOTE | 2021-04-28 09:58 | Pre Anesthesia Assessment ---
Date of Service April 28, 2021 Pre Sedation Assessment Vital Signs Temp Pulse Pulse Resp BP Pulse Ox 04/28/21 08:46 36.5 C 84 16 142/73 H 97 04/28/21 07:00 81 04/28/21 04:07 149/65 H 95 04/28/21 03:33 36.8 C 84 18 116/61 94 04/28/21 00:00 37.2 C 83 18 147/83 H 93 04/27/21 19:37 36.9 C 87 18 132/78 94 04/27/21 16:00 36.8 C 72 18 128/66 96 04/27/21 14:55 82 04/27/21 11:25 36.8 C 75 18 117/73 Cardiovascular RRR, no murmur, no edema Respiratory normal respiratory effort, lungs clear to auscultation Pre-Sedation Airway Assessment Smoking Status: Unknown if ever smoked Mallampati Class: IV ASA: ASA3 NPO Status Date of Last Intake of Fluids: 04/28/21 Time of Last Intake of Fluids: 00:00 Last Oral Intake of Fluids Comment: other than sips for meds Date of Last Intake of Solid Food: 04/28/21 Time of Last Intake of Solid Foods: 00:00 Procedure Planning Contraindications for Sedation: none Current Medications Reviewed: Yes Notes The planned sedation has been discussed with the patient. Informed Consent was obtained. I have identified the patient, determined the appropriateness of sedation and have assessed the patient immediately prior to the procedure. All medicine(s) and interventions are by my order.
--- NOTE | 2021-04-28 10:02 | Cardiology Progress Note ---
Date of Service April 28, 2021 Assessment & Plan (1) Acute non-ST elevation myocardial infarction (NSTEMI): (2) Cardiomyopathy: (3) Sinus tachycardia: Plan: ASSESSMENT/PLAN: 1. Acute NSTEMI: Had exertional angina over the past several months but no angina while hospitalized. Continues to be free from angina. No further elevated temperature and blood cultures remain negative. He would like to undergo cardiac catheterization. Risks and benefits were discussed with him in detail. He was made aware that CT surgery is not available at this facility. He has been NPO since midnight. Will proceed with cardiac catheterization today. 2. Cardiomyopathy: Volume status improved. Diuresed nicely yesterday. Continue oral Lasix. Continue metoprolol succinate. If affordable, would recommend starting low-dose Entresto at least 36 hours after last dose of lisinopril (communicated with primary service). Meds can be titrated as an outpatient. 3. Chronic systolic CHF: Volume status improved and appears more euvolemic today. Continue low-dose diuretic orally. Continue metoprolol succinate and GRIS-inhibitor versus Entresto. Low-sodium diet. Strict I&Os. Daily weights. Heart failure program as been initiated. 4. Sinus tachycardia: Likely due to reduced LV systolic function and also UTI/pyelonephritis/bacteremia. He is asymptomatic. Heart rate has improved. 5. SVT: Sustained paroxysmal SVT earlier this morning. Continue beta-kan. Has had 1 noted episode and apparently has sleep apnea with sleep study pending as an outpatient. 6. Bacteremia/pyelonephritis/UTI: As per primary service. Recurrent low-grade fever 04/26/2021 evening. 7. Disposition: I will be away from the hospital the next week. Please call the on-call bladder blower, Dr. Winston, for any questions or concerns. Plan of care communicated with primary hospitalist service, Dr. Landaverde. Admission and Anticipated Discharge Date Admission Date: April 24, 2021 Physical Exam Physical Exam: Gen.: No acute distress. Alert and oriented. HEENT: Anicteric sclera. Neck: No significant JVD today. Cardiac: Regular. Normal S1-S2. No murmurs, rubs, or gallops. Pulmonary: Clear to auscultation bilaterally without wheezes, rales, or rhonchi. Abdomen: Soft, nontender, nondistended, with normoactive bowel sounds. No bruits noted. Extremities: 2+ radial pulses bilaterally. 2+ posterior tibialis pulses bilaterally. No significant lower extremity edema. No cyanosis. Psychiatric: Affect appears appropriate. Results & Data ([facility]) Vital Signs (Past 12 Hours) Vital Signs Temp Pulse Pulse Resp BP Pulse Ox 04/28/21 08:46 36.5 C 84 16 142/73 H 97 04/28/21 07:00 81 04/28/21 04:07 149/65 H 95 04/28/21 03:33 36.8 C 84 18 116/61 94 04/28/21 00:00 37.2 C 83 18 147/83 H 93 Intake & Output 04/26/21 04/27/21 04/28/21 04/29/21 06:59 06:59 06:59 06:59 Intake Total 3582.033 / 3582.033 1310.000 / 2728.160 5184.000 / 2510.000 Output Total 1901 / 1901 2100 / 2100 4200 / 4200 Balance 1681.033 / 1681.033 -790.000 / -790.000 -1690.000 / -1690.000 Weight 223 lb 1.725 oz 217 lb 13.067 oz 217 lb 13.067 oz Laboratory Results Laboratory Results - last 24 hr 04/27/21 04/27/21 04/27/21 10:45 11:08 16:20 WBC RBC Hgb Hct MCV MCH MCHC RDW Std Deviation RDW Coeff of Radha Plt Count MPV Immature Gran % (Auto) Neut % (Auto) Lymph % (Auto) Cascade % (Auto) Eos % (Auto) Baso % (Auto) Neut # (Auto) Lymph # (Auto) Cascade # (Auto) Eos # (Auto) Baso # (Auto) Immature Gran # (Auto) APTT 46.8 H* PTT Ratio 1.8 Sodium Potassium Chloride Carbon Dioxide Anion Gap BUN Creatinine Est Cr Clr Drug Dosing Est GFR ( Amer) Est GFR (Non-Af Amer) BUN/Creatinine Ratio Glucose POC Glucose 252 H 180 H Calcium Phosphorus Magnesium 04/27/21 04/28/21 04/28/21 20:12 04:36 04:36 WBC 6.56 RBC 3.66 L Hgb 10.9 L Hct 32.1 L MCV 87.7 MCH 29.8 MCHC 34.0 RDW Std Deviation 42.1 RDW Coeff of Radha 13.1 Plt Count 228 MPV 10.2 Immature Gran % (Auto) 0.6 Neut % (Auto) 69.6 Lymph % (Auto) 16.9 Cascade % (Auto) 10.8 Eos % (Auto) 1.8 Baso % (Auto) 0.3 Neut # (Auto) 4.56 Lymph # (Auto) 1.11 L Cascade # (Auto) 0.71 H Eos # (Auto) 0.12 Baso # (Auto) 0.02 Immature Gran # (Auto) 0.04 H APTT PTT Ratio Sodium 134 L Potassium 3.7 Chloride 98 Carbon Dioxide 30 Anion Gap 6.0 BUN 14 Creatinine 0.83 Est Cr Clr Drug Dosing 102.3 Est GFR ( Amer) 104.1 Est GFR (Non-Af Amer) 89.8 BUN/Creatinine Ratio 16.6 Glucose 182 H POC Glucose 244 H Calcium 8.0 L Phosphorus 3.8 Magnesium 2.2 04/28/21 04/28/21 04:36 07:36 WBC RBC Hgb Hct MCV MCH MCHC RDW Std Deviation RDW Coeff of Radha Plt Count MPV Immature Gran % (Auto) Neut % (Auto) Lymph % (Auto) Cascade % (Auto) Eos % (Auto) Baso % (Auto) Neut # (Auto) Lymph # (Auto) Cascade # (Auto) Eos # (Auto) Baso # (Auto) Immature Gran # (Auto) APTT 46.5 H* PTT Ratio 1.8 Sodium Potassium Chloride Carbon Dioxide Anion Gap BUN Creatinine Est Cr Clr Drug Dosing Est GFR ( Amer) Est GFR (Non-Af Amer) BUN/Creatinine Ratio Glucose POC Glucose 202 H Calcium Phosphorus Magnesium Diagnostic Findings Telemetry personally reviewed: Predominantly sinus rhythm. Had a sustained episode of SVT at approximately 4:06 a.m. today lasting nearly 2 minutes. He was asymptomatic or sleeping. SVT spontaneously converted to sinus rhythm. Medications Administered Current Inpatient Medications Acetaminophen (Acetaminophen 325 Mg Tab) 650 mg PO Q4 PRN PRN Reason: Pain Stop: 05/24/21 19:41 Allopurinol (Allopurinol 300 Mg Tab) 300 mg PO DAILY [facility] Stop: 05/25/21 08:59 Last Admin: 04/28/21 09:03 Dose: 300 mg Documented by: Aspirin (Aspirin 81 Mg Ectab) 81 mg PO QAM [facility] Stop: 05/26/21 08:59 Last Admin: 04/28/21 09:04 Dose: 81 mg Documented by: Atorvastatin Calcium (Atorvastatin 40 Mg Tab) 40 mg PO HS [facility] Stop: 05/24/21 20:59 Last Admin: 04/27/21 20:44 Dose: 40 mg Documented by: Dextrose (Dextrose 50% 50 Ml Syringe) 25 - 50 ml IV UD PRN; Protocol PRN Reason: Hypoglycemia Protocol Stop: 05/24/21 19:41 Docusate Sodium (Docusate Sodium 100 Mg Cap) 100 mg PO BID [facility] Stop: 05/24/21 20:59 Last Admin: 04/28/21 09:03 Dose: 100 mg Documented by: Famotidine (Famotidine 40 Mg Tablet) 40 mg PO HS [facility] Stop: 05/25/21 20:59 Last Admin: 04/27/21 20:44 Dose: 40 mg Documented by: Furosemide ([facility]semide 20 Mg Tab) [facility] Stop: 05/26/21 16:44 Last Admin: 04/28/21 09:04 Dose: 20 mg Documented by: Gabapentin (Gabapentin 300 Mg Cap) 300 mg PO TID [facility] Stop: 05/24/21 20:59 Last Admin: 04/28/21 09:04 Dose: 300 mg Documented by: Glucagon (Glucagon For Inj 1 Mg Vial) 1 mg SQ UD PRN; Protocol PRN Reason: Hypoglycemia Protocol Stop: 05/24/21 19:41 Glucose (Glucose 10 Tabs/Tube) 4 - 8 tabs PO UD PRN; Protocol PRN Reason: Hypoglycemia Protocol Stop: 05/24/21 19:41 Glucose (Glucose 40% Gel 15 Gm Tube) 15 - 30 gm PO UD PRN; Protocol PRN Reason: Hypoglycemia Protocol Stop: 05/24/21 19:41 Ceftriaxone Sodium 2,000 mg/ (Dextrose) 70 mls @ 100 mls/hr IV Q24H [facility]; Protocol Stop: 05/04/21 11:59 Last Infusion: 04/27/21 12:46 Dose: Infused Documented by: Heparin Sodium/Dextrose (Heparin Sodium/Dextrose) 25,000 units in 500 mls @ 46 mls/hr IV .[id number] [facility]; Protocol Stop: 05/24/21 19:41 Last Admin: 04/28/21 05:19 Dose: 2,300 units/hr, 46 mls/hr Documented by: Insulin Aspart (Insulin Aspart 100 Units/Ml 3 Ml Pen) 0 units SC ACHS [facility] Stop: 05/24/21 20:59 Last Admin: 04/28/21 09:00 Dose: 2 units Documented by: Levothyroxine Sodium (Levothyroxine Sodium 112 Mcg Tablet) 112 mcg PO DAILYBB [facility] Stop: 05/25/21 06:29 Last Admin: 04/28/21 04:56 Dose: 112 mcg Documented by: Lisinopril (Lisinopril 5 Mg Tab) [facility] Stop: 05/28/21 08:59 Last Admin: 04/28/21 09:02 Dose: 5 mg Documented by: Loratadine (Loratadine 10 Mg Tab) 10 mg PO DAILY [facility] Stop: 05/25/21 08:59 Last Admin: 04/28/21 09:03 Dose: 10 mg Documented by: Metoprolol Succinate (Metoprolol Succ 50mg Ext Rel Tab) [address] [facility] Stop: 05/28/21 08:59 Last Admin: 04/28/21 09:02 Dose: 100 mg Documented by: Miscellaneous (Carbohydrates For Hypoglycemia ) 15 - 30 gm PO UD PRN PRN Reason: Hypoglycemia Protocol Stop: 05/24/21 19:41 Nitroglycerin (Nitroglycerin Sl 0.4 Mg/Tab Tab) 0.4 mg SL Q5M PRN PRN Reason: Chest Pain Stop: 05/25/21 08:36 Ondansetron HCl (Ondansetron Inj 2 Mg/Ml 2 Ml Vial) 4 mg IV Q6H PRN PRN Reason: Nausea Stop: 05/24/21 19:41 Last Admin: 04/24/21 20:25 Dose: 4 mg Documented by: Pantoprazole Sodium (Pantoprazole 40 Mg Tab) 40 mg PO DAILY [facility]; Protocol Stop: 05/25/21 08:59 Last Admin: 04/28/21 09:03 Dose: 40 mg Documented by: Psyllium Hydrophilic Mucilloid (Psyllium 58.6% Powder Packet) 1 pkt PO DAILY [facility] Stop: 05/25/21 08:59 Last Admin: 04/28/21 09:04 Dose: Not Given Documented by: Senna/Docusate Sodium (Docusate Sodium/Senna 50/8.6mg Tab) 1 tab PO QDL PRN PRN Reason: Constipation Stop: 05/24/21 19:41 Tamsulosin HCl (Tamsulosin Hcl 0.4 Mg Cap) 0.4 mg PO HS [facility] Stop: 05/24/21 20:59 Last Admin: 04/27/21 20:43 Dose: 0.4 mg Documented by: PG Care Time/CCT Total # of Minutes Spent Total Time Spent with Patient: Total time spent is greater than 50% in coordination of care (as documented) at patient's floor/unit and/or counseling patient: Coding Level of Care Code 60991 Subseq Hosp Care Lvl 3 Diagnoses Acute non-ST elevation myocardial infarction (NSTEMI) I21.4 Cardiomyopathy I42.9 Sinus tachycardia R00.0
[2021-04-28] MEDS ORDERED: ASPIRIN 81 MG CHEW ONE (10:27)
--- NOTE | 2021-04-28 10:32 | Hospitalist Progress Note ---
Date of Service April 28, 2021 Assessment & Plan (1) Catheter-associated urinary tract infection: Plan: Frederic Camejo III is a 70-year-old male with past medical history significant for spinal cord injury/cauda equina syndrome, urinary retention with need for daily self catheterization, and T2DM who was admitted to [facility] on 04/24 for sepsis due to catheter-associated UTI; also found to have NSTEMI. Sepsis due to Catheter-associated UTI with Bacteremia, Sepsis/Bacteremia resolved Daily catheterizations with several days of urinary symptoms and fever/chills with decreased PO intake. Blood/urine cx growing E. coli sensitive to CTX. CT A/P with evidence of cystitis + right pyelonephritis. - repeat blood cx 04/27 negative after 24 hours and afebrile for >36 hours - continue Ceftriaxone 2g IV Q24H for now(today is day 01/04) - transition to Cefdinir 300mg PO BID tomorrow if remains afebrile/hemodynamically stable - cautious repletion with 250-500cc NSS bolus if VS worsen - CBC daily Pulmonary Embolism/NSTEMI Recent diagnosis of right upper lobe PE - was on Eliquis 5mg PO BID for this. H/o stable angina, Troponin peaked at 12.6 on 04/25, with ST depressions and T- wave inversions on EKG --> NSTEMI. - Cardiology consulted - appreciate recs - NPO for possible cardiac catheterization today - transitioned to Heparin gtt on admission - continue - plan to re-start Eliqiuis on discharge - Plavix stopped today as patient is now more stable, on cardiac meds, and needs ongoing anti-coagulation with Eliquis - continue Metoprolol succinate 100mg PO daily - continue Lisinopril 5mg PO daily (cannot afford Entresto) - continue Aspirin and Atorvastatin 40mg PO QHS HFrEF New diagnosis per TTE - showing EF 35-40%, moderately reduced LV systolic function, and severe hypokinesis/akinesis of mid-distal inferior wall as well as global hypokinesis. Suspect ischemic cardiomyopathy. - Cardiology consulted as stated above - appreciate recs - continue Lasix 20mg PO daily - other med management plan as stated above - would benefit from f/u with [facility] Failure [facility] after discharge Normocytic Anemia Hgb 11.6 --> 10.1 --> 10.6 today. Baseline 12-14 in the last several months. In context of recent addition of several blood thinners. Possibly due to lab error. - currently hemodynamically stable without signs of active bleeding - FOBT ordered - results pending - f/u with PCP to monitor Cauda Equina Syndrome/Urinary Retention - continue PRN straight urinary caths and home meds T2DM A1c 6.9 this admission. At goal (<7). - hold Metformin/Glimepiride while admitted - SSI while hospitalized - f/u with PCP, consider tapering down regimen given A1c Hypothyroidism - continue home Synthroid GERD - continue Protonix per hospital formulary and home Pepcid FEN/GI: NPO for cardiac catherization today DVT Prophylaxis: Heparin gtt Code Status: full code Disposition: PCU w/ tele (2) Pulmonary embolus: (3) Troponin level elevated: (4) Diabetes: (5) Cauda equina compression: Admission and Anticipated Discharge Date Admission Date: April 24, 2021 Subjective No acute events overnight. Afebrile for >36 hours. Patient continues to deny fever/chills, chest pain, palpitations, SOB, cough, N/V, abdominal pain, rash. Review of Systems Review of Systems: All systems reviewed & are unremarkable except as noted in Subjective Physical Exam Physical Exam: General: A&Ox3. NAD. Cooperative. HEENT: Atraumatic, normocephalic. Pulm: CTAB A&P. -wheezes, -rales, -rhonchi. Symmetrical chest rise. No increase work of breathing. No respiratory distress. Cardiac: RRR, -mrg. Radial pulses intact and symmetrical. No LE edema Abdominal: soft, mild suprapubic tenderness, no CVA tenderness, abdomen is non- distended and has NA BS x 4 Skin: left buttock ulcer with overlying dressing c/d/i, without surrounding erythema/red streaking/TTP Results & Data Results & Data ([facility]) Vital Signs (Past 12 Hours) Vital Signs Temp Pulse Pulse Resp BP Pulse Ox 04/28/21 08:46 36.5 C 84 16 142/73 H 97 04/28/21 07:00 81 04/28/21 04:07 149/65 H 95 04/28/21 03:33 36.8 C 84 18 116/61 94 04/28/21 00:00 37.2 C 83 18 147/83 H 93 Resident Activity Tracking Resident Involvement: Resident Care Provided Care Provided: Adult Hospital Medicine (1) Catheter-associated urinary tract infection Encounter type: initial encounter Indwelling urinary catheter type: unspecified Qualified Code(s): T83.511A - Infection and inflammatory reaction due to indwelling urethral catheter, initial encounter; N39.0 - Urinary tract infection, site not specified
[2021-04-28] MEDS ORDERED: niCARdipine HCL INJ 2.5 MG/ML 10 ML AMP ONE (10:40)
[2021-04-28] MEDS ORDERED: fentaNYL citrate 100 MCG/2 ML VIAL ONE (10:40)
[2021-04-28] MEDS ORDERED: MIDAZOLAM HCL 1 MG/ML 2ML VIAL ONE (10:40)
[2021-04-28] MEDS ORDERED: NITROGLYCERIN/D5W 100MCG/ML 20ML SYR ONE (10:40)
[2021-04-28] MEDS ORDERED: HEPARIN (PORCINE) 1000 UNIT/ML 10 ML (CATH LAB USE ONLY) ONE (10:40)
--- NOTE | 2021-04-28 12:06 | Cardiac Catheterization ---
[facility] Data: Plant Maintenance Technician Cardiac Status Clinical evaluation leading to the procedure CAD Presenation: Non STEMI Anginal Classification: CCS III Heart Failure: NYHA Class: CCS III Cardiogenic Shock within 24 Hours: No Cardiac Arrest within 24 Hours: No Imaging Studies Past 6 Months: Yes Stress Studies Past 6 Months: No Coronary Anatomy Dominant: Co-Dominant Diagnostic Physicians Name: Bean Casillas MD Status: Elective Closure Device Percutaneous Entry Location: Radial Closure Device: Radial Band Recommendations: CABG Cardiac Cath Procedure Full Procedure Date April 28, 2021 Pre-Procedure Diagnosis Pre-Procedure Diagnosis: Non STEMI and Cardiomyopathy AUC Score AUC Score: 9 Post-Procedure Diagnosis Post-Procedure Diagnosis: Severe CAD and Elevated Intracardiac Pressures Procedure(s) Performed Procedure(s) Performed: Coronary Angiography and Left Heart Cath Field Staff Manager Bean Casillas MD Retail Store Manager(s) Showers Estimated Blood Loss Estimated Blood Loss: < 30 ml Medication(s) Medication(s): Fentanyl, Heparin, Lidocaine 1%, Nicardipine and Versed Summary of Findings Procedures: 1. Coronary angiography 2. Left heart catheterization 3. Moderate sedation 4. Radial artery angiography Indications: 70-year-old gentleman with a history significant for type 2 diabetes, hypertension, dyslipidemia. He was experiencing angina with limited exertion for at least 6 months and admitted for UTI with bacteremia and NSTEMI with peak troponin 12.6. LV systolic function noted to be moderately reduced with EF 35 to 40% and multiple regional wall motion abnormalities. During hospitalization, also felt to be in systolic CHF and treated with diuretic. Coronary angiography: 1. Left main coronary artery: LMCA is large in caliber. Distal LMCA 90% stenosis involving ostium of LAD and circumflex. 2. Left anterior descending: LAD is a large-caliber vessel that extends to the apex. Ostial LAD 80%. Mid LAD 50 to 70%. Medium caliber D1. Medium to large caliber D2 with ostial/proximal 70 to 80%. 3. Circumflex: Large and Co-dominant. Ostial circumflex 70%. Mid circumflex 40%. Distal circumflex 70%. Large OM1 ostial/proximal 50% and mid 90 to 95% involving smaller branch. Circumflex posterior lateral branch proximal 50%. PDA without significant CAD. 4. Right coronary artery: Codominant. Diffuse severe CAD. Proximal RCA 90%. Early mid RCA 80 to 90%. Distal RCA 90-95% diffuse CAD. Very small PL. Small PDA without significant CAD. Left to right collaterals. Left heart catheterization: 1. Left ventriculography was not performed. 2. Moderately elevated LVEDP; 18 mmHg. 3. No aortic stenosis. Peak to peak gradient across the aortic valve was 0. Right radial artery angiography: 1. J-wire unable to be advanced and therefore angiography was performed. Moderate to severe stenosis noted within the right radial artery. Glidewire was easily advanced and diagnostic angiography of the coronary arteries were able to be achieved with 6 Malaysian JL 3.5 and 6 Malaysian JR4 diagnostic catheters. Moderate sedation: 1. Sedation start time: 11:05 AM 2. Sedation end time: 11:37 AM Impression: 1. Severe multivessel CAD including LMCA, LAD, codominant circumflex, large OM, and codominant RCA. 2. Faint left to right collaterals. 3. Elevated left-sided filling pressure. 4. No aortic stenosis. Plan: 1. Recommend CT surgery evaluation for CABG. 2. Optimize medical therapy. Hemodynamics Rest Ao:: 119/63 Final Ao: 114/64 LV: 120/8/18 Recommendations Recommendations: CABG Specimens Specimens: None Radiation Exposure (mGy) 1332 mGy. Fluoro time 8.7 min. Contrast (mls) 110 ml Procedural Complication(s) None Disposition PCU I attest to the content of the Intraoperative Record and any orders documented therein. Any exceptions are noted below. [facility] Card Cath Procedure Codes Cardiac Catheterization Procedure 1: Cardiovascular Cath Procedures: 53157 Coronaries and LHC (+/-LV) Moderate Sedation Procedure 1: Sedation/Anesthesia: 08085 Mod Sedation by the same physician;Init15 Min Child Age 5 & Up Procedure 2: Sedation/Anesthesia: 35750 Mod Sedation by the same physician; Ea [id number] Minutes PG Care Time/CCT Total # of Minutes Spent Total Time Spent with Patient: Total time spent is greater than 50% in coordination of care (as documented) at patient's floor/unit and/or counseling patient:
--- NOTE | 2021-04-28 12:48 | Post Anesthesia Assessment ---
Date of Service April 28, 2021 Post Sedation Assessment Vital Signs Temp Pulse Pulse Resp BP Pulse Ox 04/28/21 12:04 68 16 114/63 93 04/28/21 11:49 77 16 126/76 93 04/28/21 10:22 79 16 138/79 96 04/28/21 08:46 36.5 C 84 16 142/73 H 97 04/28/21 07:00 81 04/28/21 04:07 149/65 H 95 04/28/21 03:33 36.8 C 84 18 116/61 94 04/28/21 00:00 37.2 C 83 18 147/83 H 93 04/27/21 19:37 36.9 C 87 18 132/78 94 04/27/21 16:00 36.8 C 72 18 128/66 96 04/27/21 14:55 82 Recovery Score Activity: Moves 4 extremities Respiration: Deep Breath/Cough Circulation: +/-20% PreAnes Value Consciousness: Fully Awake Oxygen Saturation: > 92% On Room Air Post Anesthesia Score: 10 Discharge Sedation Level of Care: Fast Track Phase II Post Sedation Plan On clinical assessment, the patient appears to have tolerated the sedation without complications. Patient is recovering as anticipated. Patient will continue to be monitored by nursing and may be discharged when sedation discharge criteria are met per below protocol. Upon Completions of procedure up to 15 minutes continue every 5 minute vital signs and the P.A.R. score; then discharge to a Phase I or Fast Track to Phase II per the following guidelines: * Discharge Patient to appropriate Phase II area if PAR is 8 or greater or return to pre- procedure baseline. The post - procedure orders will be as directed. * If PAR score is less than 8 or not return to pre-procedure baseline then patient will follow Phase I monitoring till PAR is reached for Phase II. The Phase I may be done in procedure room or may call to secure a Phase I area. * If naloxone or flumazenil are used for reversal, hold in Phase I for continued monitoring from when last reversal dose was given for a minimum of 60 minutes or longer pending the nurse and/or physician discretion of patient condition before discharge to Phase II. Please call the Sedation Physician to re-evaluate and complete post-note for discharge to Phase II area. Do NOT discharge from procedure sedation or Phase 1 until post- sedation evaluation note is complete by procedure /sedation MD Sedation Discharge Instructions to be given to the patient at discharge to home.
[2021-04-28] MEDS: cefTRIAXone SODIUM 2,000 MG in DEXTROSE 5% 50 ML IV SCH (13:33)
--- NOTE | 2021-04-28 15:59 | Discharge Summary ---
Date of Service April 28, 2021 Admission HPI Per Admitting Provider This is a 70-year-old male with past medical history spinal cord injury, urinary retention that self catheterizes presents complaining of fever. Patient is in some distress when I first met him, at bedside provides some history. Patient notes that over the past 48 hours he has had significant chills, fevers, and rigors. He has had nausea and vomiting has not been able to hold down any liquids or solids nor has been able to take his medications. He typically self catheterizes without issue but he has noticed that the urine coming out is cloudy and now has a foul odor. His main distress while I was visiting was at his lower extremities. He tells me he has spasm type pain which is attributed to neuropathy. He typically takes gabapentin for this but has not had his medications in a day and a half. Work-up in the emergency room revealed the patient has a urinary tract infection. Of additional concern patient had an initial troponin of over 4. EKG showed inverted T waves V4-6, not present on previous tracing. Patient is now being admitted for further work-up of these issues. Admission Exam Per Admitting Provider Constitutional: cooperative Neck: trachea midline, no thyromegaly Respiratory: normal respiratory effort Auscultation: lungs clear to auscultation bilaterally; no crackles, no rales, no rhonchi and no wheezes Cardiovascular: Rate/Rhythm: regular rate and regular rhythm Heart Sounds: normal S1 and normal S2 Gastrointestinal (Abdomen): Inspection/Auscultation: abdomen normal to inspection Percussion/Palpation: abdomen soft; abdomen nontender, no guarding, abdomen not rigid and no hepatosplenomegaly Skin: no rashes, warm and dry Principal Diagnosis NSTEMI Catheter-associated UTI with bacteremia Discharge Exam General: A&Ox3. NAD. Cooperative. HEENT: Atraumatic, normocephalic. Pulm: CTAB A&P. -wheezes, -rales, -rhonchi. Symmetrical chest rise. No increase work of breathing. No respiratory distress. Cardiac: RRR, -mrg. Radial pulses intact and symmetrical. No LE edema Abdominal: soft, mild suprapubic tenderness, no CVA tenderness, abdomen is non- distended and has NA BS x 4 Skin: left buttock ulcer with overlying dressing c/d/i, without surrounding erythema/red streaking/TTP Discharge Data Allergies Allergy/AdvReac Type Severity Reaction Status Date / Time Penicillins Allergy Intermediate HIGH Verified 04/24/21 15:09 FEVER, RASH (NOTED ALLERGIC TO "ANY-CILLIN" bee pollen Allergy Unknown Unknown Verified 04/24/21 15:09 Consultations 04/24/21 15:17 ED Decision to Admit Stat 04/24/21 19:42 Consult Cardiology Routine Procedures Performed Operation Date: 04/28/21 10:30 Actual Procedures p Cath, Left with Cors and Vent - Bean Casillas MD s Cineradiography w/Routine Exam - Bean Casillas MD Ordered Studies 04/24/21 15:55 CT abd pelvis IV con only Stat CT angio chest PE protocol Stat 04/28/21 10:08 CL Cath Imgs for PACS use only Routine Hospital Course (1) Catheter-associated urinary tract infection: Frederic Camejo III is a 70-year-old male with past medical history significant for spinal cord injury/cauda equina syndrome, urinary retention with need for daily self catheterization, and T2DM who was admitted to [facility] on 04/24 for sepsis due to catheter-associated UTI; also found to have NSTEMI. NSTEMI Recent diagnosis of right upper lobe PE - was on Eliquis 5mg PO BID for this. H/o stable angina, Troponin peaked at 12.6 on 04/25, with ST depressions and T- wave inversions on EKG --> NSTEMI. - Cardiology consulted - appreciate recs - cardiac cath on 04/28 showed 90% LMCA and severe stenosis throughout LAD, circumflex and RCA Cardiology recommended transfer to tertiary facility for CABG, but the patient and his would like to go home and follow up with [facility] next week for CABG. The patient has decision-making capacity and has expressed understanding of the severe risks of his decision to go home, rather than transfer for immediate CABG. - f/u with [facility] CT surgery is tentatively planned for early next week - Eliquis was held and Heparin gtt was used while hospitalized - re-start Eliqiuis on discharge - started Metoprolol succinate - continue with 100mg PO daily - started Lisinopril - continue with 5mg PO daily (cannot afford Entresto) - started Lasix - continue with 20mg PO daily - continue Atorvastatin 40mg PO QHS - f/u with [facility] Heart Failure clinic and Cardiology after discharge HFrEF New diagnosis per TTE - showing EF 35-40%, moderately reduced LV systolic function, and severe hypokinesis/akinesis of mid-distal inferior wall as well as global hypokinesis. Suspect ischemic cardiomyopathy. - Cardiology consulted as stated above - appreciate recs - med management as stated above - counseled on low-salt diet Sepsis due to Catheter-associated UTI with Bacteremia, Sepsis/Bacteremia resolved Daily catheterizations with several days of urinary symptoms and fever/chills with decreased PO intake. Blood/urine cx growing E. coli sensitive to CTX. CT A/P with evidence of cystitis + right pyelonephritis. - repeat blood cx 8/5 negative after 24 hours and afebrile for >36 hours - started Ceftriaxone 2g IV Q24H while hospitalized - transition to Cefdinir 300mg PO BID x 10 days, starting tomorrow - recommend patient follows up with PCP to obtain saline flushes and sufficient urinary catheters in order to avoid needing to re-use them H/o Pulmonary Embolism - continue Eliquis after discharge, as stated above Normocytic Anemia Hgb 11.6 --> 10.1 --> 10.6 today. Baseline 12-14 in the last several months. In context of recent addition of several blood thinners. Possibly due to lab error. - currently hemodynamically stable without signs of active bleeding - f/u with PCP to monitor Cauda Equina Syndrome/Urinary Retention - continue PRN straight urinary caths and home meds T2DM A1c 6.9 this admission. At goal (<7). - continue Metformin/Glimepiride - f/u with PCP, consider tapering down regimen given A1c Hypothyroidism - continue home Synthroid GERD - continue home Pepcid/Omeprazole (2) Pulmonary embolus: (3) Troponin level elevated: (4) Diabetes: (5) Cauda equina compression: Total Time Total Time Spent Total Time Spent (In Minutes): Approximately 2 hours spent by attending physician alone on arranging/coordinating discharge, and educating patient and /discussing risks and benefits. Discharge Plan Discharge Items Patient Disposition: Home - Self-Care Reason For Visit: CA-UTI, ELEVATED TROP Discharge Diagnosis: Catheter-associated urinary tract infection with bacteremia NSTEMI Condition on Discharge: Good Activity: Per Instructions section Non-emergency contact: Primary Care Provider and Pastry Mixer Call non-emergency contact if: you have any medication questions, your symptoms worsen and you have a fever Follow-up/Referrals: Liz Kirby DO [Primary Care Provider] - (schedule f/u in 1 week) Dottie Walker PA-C [Physician Suppression Crew Leader] - 05/04/21 10:30 am (Congestive Heart Failure Program Appointment Information Early follow up is essential to managing your heart failure. An appointment has been scheduled for you with the [facility] Heart Failure Program within 7 days of discharge. Anticipate this visit to be 30-60 minutes long. Please expect a needle maker phone call from one of our nurses approximately 48 hours from discharge. They will also be placing an order for lab work to be completed 1-2 days prior to your heart failure follow up appointment. Please be sure to have this done so we can go over the results when you come in. Office Location The cardiology office building is located in front of the hospital at [address]. Bring the following with you to your follow-up doctor appointments: Please bring your daily weight log any discharge paperwork all of your medication bottles with you to this visit. ) Diet: Heart Healthy and Low Sodium (2gm) Addtl Attending Provider Instructions: You were admitted to [facility] from 04/24 - 04/28 for a urinary tract infection that made its way into your blood stream. You were also admitted for a heart attack, which was likely brought on by dehydration in the setting of your urine infection. For the infection, you were started on IV antibiotics and IV fluids; you did well with these medications and you will be transitioned to oral antibiotics on discharge. Please hop picker Cefdinir from your pharmacy, and take it twice per day (once in the morning, once in the evening) for the next 10 days starting tomorrow. Please follow up with your primary care physician to ensure that you have saline flushes and enough urinary catheters, so that you don't have to re- use any catheters. Please continue to maintain cleanliness techniques to avoid getting another urinary tract infection. For your heart attack, our Pastry Mixer performed a cardiac catheterization that showed severe multi-vessel disease. You will need to follow up with [facility] Cardiothoracic surgery NEXT WEEK. They will help you get scheduled for a cardiac bypass surgery. You will get a call from [facility] Cardiothoracic Surgery to schedule an office visit next week for formal evaluation for a cardiac bypass. If you do not hear from them by Saturday early , please call this number: [phone] You will need to start taking the following medications to maximize the health of your heart, and to decrease the chance of having another heart attack or further damage to your heart: 1. Aspirin, one pill per day 2. Atorvastatin (otherwise known as Lipitor), one pill per day 3. Lisinopril, one pill per day 4. Metoprolol, one pill per day 5. Lasix, one pill per day You will continue to take Eliquis twice per day. You will also continue to take your regular medications as scheduled. Please avoid salt in your diet, as this will make your heart worse. Please try to eat according to the Mediterranean diet which will maximize the health of your heart. ACTIVITY RECOMMENDATIONS: Excess manipulation of the wrist should be avoided for the next 24-48 hours. * No lifting over 2 pounds (approximately a 1/2 gallon of milk) with the utilized arm for 24 hours. * No strenuous activity such as bowling or tennis for 3 days. * Keep the site of the procedure covered with a bandage for 24 hours. *You may shower the day after the procedure. Do not take a tub bath or submerge the puncture site in water for the next 3 days. *Do not operate any motorized equipment for 3 days. SPECIAL CARE INSTRUCTIONS: The site may be slightly bruised and sore following your procedure. Should any of the following occur, contact the Dr. who performed your procedure. 1. Redness/inflammation, swelling, chills, or fever, or colored drainage at procedure site within 3-7 days after your procedure. 2. Coldness, discoloration, ongoing numbness, severe pain, or swelling. Expect mild tingling of hand and tenderness at the puncture site for up to three days. If this persists beyond three days, or other symptoms develop, notify the Dr. who performed your procedure. BLEEDING: If the procedure site on your wrist begins to bleed, do not panic 1. Place 1 or 2 fingers firmly just slightly above the insertion site to stop the bleeding. You may be able to feel your pulse as you hold pressure. 2. Lift your finger after 5 minutes to see if the bleeding has stopped. 3. Once the bleeding has stopped, gently wipe the wrist area clean with a bandage. * If the bleeding from your wrist does not stop after 10 minutes, or if there is a large amount of bleeding or spurting, call 911 (do not drive yourself to the hospital). SKIN IRRITATION: * You may experience some redness and/or swelling in the area where radiation was administered. If any skin irritation occurs, please contact your family physician. FOLLOW UP VISIT: Keep any scheduled doctor appointments. Addtl Wool Cleaner Provider Instructions: Call your Primary Care doctor if any of the following symptoms or problems start or get worse: * Shortness of breath or difficulty breathing * Wake up at night short of breath * Chest pain * Cough * Swelling of your hands, feet, or legs * More fatigued or tired with your normal activity * Palpitations - sudden fast heart beats WEIGHT * Weigh yourself every morning after using the bathroom. * Use the same scale. * Wear the same amount of clothing. * Write your weight down on a chart. * Call your Primary Care doctor if you gain more than 2-3 pounds in 1-2 days. MEDICATIONS * Use this discharge instruction sheet for medication instructions. * Take your medications at the time your doctor ordered. * Do not skip a dose of your medicines. * If you miss a dose of medicine, take it as soon as possible, but DO NOT DOUBLE A DOSE. * Read your medicine information when you get home. * Know all of the side effects of your medicine. If in doubt, ask your pharmacist * Call your Primary Care doctor's office if you have any side effects. * Be sure all of your doctors know what medicine and herbs you take (including cold, flu, and herbal medicine). Take the following with you to your follow-up doctor appointments: * Weight Chart * Medication List * List of questions Do not drink excessive alcohol, beer or wine. Pending Studies at Discharge: No Stand-Alone Forms: My [employer], Smoking Cessation Medications and DC Order Prescriptions: New Entresto 24-26 mg tablet 1 tab PO BID Qty: 60 RF: 0 aspirin 81 mg tablet,delayed release (DR/EC) 81 mg PO DAILY Qty: 30 RF: 2 lisinopril 5 mg tablet 5 mg PO DAILY Qty: 30 RF: 2 metoprolol succinate 100 mg tablet extended release 24 hr 100 mg PO DAILY Qty: 30 RF: 2 nitroglycerin 0.4 mg tablet, sublingual 0.4 mg sublingual ONCE Qty: 10 RF: 0 Continued [id number] [Osteo Bi-Flex Triple Strength] 750 mg-644 mg- 30 mg-1 mg tablet 1 tab PO BID RF: 0 allopurinol 300 mg tablet 300 mg PO DAILY Qty: 90 RF: 3 metformin 1,000 mg tablet 1,000 mg PO BID Qty: 180 RF: 1 glimepiride 2 mg tablet 2 mg PO DAILY Qty: 90 RF: 1 levothyroxine 112 mcg tablet 112 mcg PO DAILY Qty: 30 RF: 2 (DME) Roho Cushion See Rx Instructions .Route .MEDSUPPLY Qty: 1 RF: 0 famotidine 40 mg tablet 40 mg PO HS Qty: 90 RF: 1 (DME) diaper,brief,adult,disposable Misc See Rx Instructions .ROUTE .MEDSUPPLY Qty: 126 RF: 3 furosemide [Lasix] 20 mg tablet 20 mg PO DAILY PRN (Reason: edema) Qty: 30 RF: 2 atorvastatin 40 mg tablet 40 mg PO HS RF: 0 psyllium Packet 1 packet PO DAILY RF: 0 loratadine 10 mg Tablet 10 mg PO DAILY RF: 0 polyethylene glycol 3350 [Miralax] 17 gram powder in packet 17 g PO QDL PRN (Reason: Constipation) RF: 0 sennosides-docusate sodium [Senokot-S] 8.6-50 mg tablet 1 tab PO QDL PRN (Reason: Constipation) RF: 0 acetaminophen 325 mg Tablet 650 mg PO Q4 PRN (Reason: Pain) RF: 0 tamsulosin 0.4 mg Capsule 0.4 mg PO HS Qty: 30 RF: 0 omeprazole 20 mg capsule,delayed release(DR/EC) 20 mg PO DAILY RF: 0 apixaban 5 mg Tablet 5 mg PO BID RF: 0 fluticasone propionate 50 mcg/actuation [place],Suspension 1 spray INTRANASAL BID PRN (Reason: Nasal Congestion) RF: 0 docusate sodium 100 mg Tablet 100 mg PO BID RF: 0 gabapentin 300 mg capsule 300 mg PO TID RF: 0 Discharge Orders: Discharge Order (Routine); Ordered 04/28/21 Ordered By: Srini Machuca/Other Patient Handouts: Healthy Meals for Diabetes, Eating Heart-Healthy Foods Admission Data Admit Date/Time: 04/24/21 16:57 Attending Provider: Houston Duran Admit Provider: Glenn Duron Primary Care Provider: Liz Kirby Other Providers: Glenn Duron ; Bean Casillas Other Interventions: Discharge Summary Assessment (RN) Last Done: 04/28/21 16:02 Supervising Physician Co-Signing Physician Notes personally examined the patient and verified all constantino points of history and exam, discussed case, and agree with decision making with Dr Landaverde. Feeling overall better. Cast noted/Case discussed with cardiology. Patient adamantly declines transfer at this time. Extensive discussion with patient and on risks and benefits of this approach, how to do so as safely as possible, the potential pitfalls such as another [place]/permanent CHF//etc. He expresses good understanding of the risks, but still strongly desires to go home first. Called tertiary care with thoracic surgery and to the best of my ability personally arranged expedited follow-up as an outpatientin the end discussed his case with cardio thoracic surgery at [facility] who noted that unfortunately scheduling was closed at this time, but they would set things in motion and system with an anticipated follow-up in very short order. Vitals noted, in general he is awake and alert pleasant no distress. HEENT normocephalic atraumatic mucous membranes moist. Breathing unlabored no accessory muscle use good effort. Skin shows no rashes no pallor or icterus. Mental status intact, and in discussion of risks and benefits, he does have capacity to understand the consequences of his decisions. While she is not my patient, his seems to have capacity to understand the decisions as well, and while she seems to disagree with his decisions, she is supportive of his autonomy. Complicated UTI related to self-catheterization with pyelonephritis, sepsis, and bacteremia present on admission -improving. Has been on IV ceftriaxonefinish out 14 total days of antibiotics with p.o. cefdinir. Recommended we move to sterile flushes instead of apple cider vinegar. Discussed cranberry tabs as another suppressive agentgiven that we also discussed risk benefit of prophylactic antibiotics likely leading to more rapid antibiotic resistance bacteria, although given that he has had 3 infections since initiating self cathing, with this particular one being life-threatening, it would not be unreasonable. For now given that we have a lot of potentials for improvement, will work on those before exposing him to the risk of prophylactic antibiotics. Also recommended 60 to 80 ounces of fluids a day to maintain hydration so that his bladder is not a "stagnant pond" NSTEMIacutely almost certainly related to physiologic stress from above, but definitely higher than one would normally see just from demand ischemia. In further work-up of this, it is found that he has diffuse coronary disease that would be most appropriate for bypasshe after discussions with myself resident physician and cardiology understands the risks, but feels strongly that he must go home for a little while. We discussed with cardio thoracic surgery and they will be working on seeing him in short order as an outpatient. Med management, aggressive secondary risk reduction, minimal activity until after bypass, return with a 0 threshold of any concerning symptoms. Risks of permanent bad outcomes and clearly understood by patient and , he has capacity to make this decision, even though I made it clear I disagree. otherwise as above Resident Activity Tracking Resident Involvement: Resident Care Provided Care Provided: Adult Hospital Medicine
--- NOTE | 2021-04-28 18:44 | Billing Data ---
Date of Service April 28, 2021 Coding Level of Care Code D/C DAY MANAGEMENT >30 MINS
[2021-04-29] MEDS ORDERED: CEFDINIR 300 MG CAP PO SCH (09:00)
== END 2021-04-28 18:00 | disposition home health service (06) | DRG 698 ==
LOC: ED 11:34 → 2S 16:57 → SUATTDRO 16:57 → 2S 19:08

== ENCOUNTER 2021-05-02 19:20 | Inpatient (IN) ==
--- NOTE | 2021-05-02 20:38 | Emergency Department Note ---
Impression & Plan CAD (coronary artery disease), Non-ST elevation AK (NSTEMI) ED Provider Note NAME: JOMAR HAAS III AGE: 70 SEX: M : 1950 ARRIVES VIA: Walk-In INFORMANT: Patient ED PROVIDER(S): Houston Zapata DO CHIEF COMPLAINT: Chest pain HPI: Patient is a 70-year-old male who presents ER for midsternal chest pressure since being discharged. He was recently admitted and found to have an AK. They recommended CABG and he requested to go home. He has been having chest pain off and on with exertion since discharge. He gets will bed he became short of breath. He denies any arm or jaw pain. Chest pain 0 out of 10 currently. No shortness of breath now. No dysuria, urgency, or frequency. No other exacerbating or remitting factors. ROS: See above HPI for pertinent positives & negatives. A total of 10 systems reviewed and were otherwise negative. PAST MEDICAL HISTORY:See Below PAST SURGICAL HISTORY:See Below FAMILY HISTORY:See Below SOCIAL HISTORY:See Below HOME MEDICATIONS:See Below ALLERGIES:See Below VITALS:See Below PHYSICAL EXAMINATION: GENERAL: Sitting up in bed, alert, disheveled, chronically ill-appearing EYE EXAM: normal conjunctiva. OROPHARYNX: no exudate, no erythema, lips, buccal mucosa, and tongue normal and mucous membranes are moist NECK: supple, no nuchal rigidity, no adenopathy, non-tender LUNGS: Clear to auscultation. Normal chest wall mechanics HEART: no murmurs, S1 normal and S2 normal ABDOMEN: abdomen soft, non-tender, normo-active bowel sounds, no masses, no rebound or guarding. UPPER EXTREMITIES: upper extremities are grossly normal. LOWER EXTREMITIES: No pitting edema. NEURO EXAM: Normal sensorium, cranial nerves II-XII grossly intact, normal speech, no gross weakness of arms, no gross weakness of legs. MEDICAL DECISION MAKING: Patient is a 70-year-old male who presents the ER for chest pain. Patient was recently admitted and cath and found to have multivessel disease following an NSTEMI and they recommended transfer for CABG. He declined and went home. He presents today as he has been having exertional chest pain which has been getting worse. Labs show no significant anemia or leukocytosis. BMP along with LFTs bilirubin was unremarkable. Troponin was once again elevated at 0.069. Not nearly as high as last time. His EKG was not significantly changed. He is chest pain-free here. He was given aspirin. He was placed on heparin drip bolus. We will hold Eliquis. Discussed with Austin Stanford who recommended admission here. Following this they would transfer in a day or 2. I did discuss with Dr. Radha Matthews who recommended transfer. I discussed with Dr. Collins from cardiothoracic surgery who recommended admission to [facility] and transfer tomorrow if possible. He recommended heparin drip hold Eliquis. Patient was updated bedside remained stable. Triage Nursing notes reviewed. Limited review of prior medical records performed Vital Signs: reviewed and remarkable for no significant abnormalities Differential diagnosis: Differential diagnoses includes but is not limited to acute coronary syndrome, myocardial infarction, pericarditis, pulmonary embolus, aortic dissection, pneumonia, pneumothorax, musculoskeletal, shingles, esophageal. ER treatment provided: See below Diagnostics interpreted by me: ECG: Sinus rhythm rate 75 Normal axis T wave inversion in the inferior leads T wave inversion in the anterior and lateral leads with ST depressions no significant change from April 26, 2021 Cardiac Monitoring: An order was placed for continuous cardiac monitoring. The monitor shows a rate of 72 with sinus rhythm. Laboratory studies: As stated above and show below. Imaging studies: Portable AP upright 1 view the chest was unremarkable Consultation(s): As discussed above Radha Matthews, Austin Stanford and Dr. Galarza from cardiothoracic surgery Procedures: none Critical Care: I have personally spent 35 minutes of critical care time in the direct management of this patient. This includes bedside care, interpretation of diagnostic studies, and testing, discussion with consultants, patient, and family members, and other required patient management activities. This 35 m inutes is in excess of all separately billable procedures. Past Med/Surg History Medical History Allergic rhinitis Cauda equina syndrome Constipation Diabetes Dyslipidemia (high LDL; low HDL) GERD (gastroesophageal reflux disease) Gout Hx of testicular cancer Hypertension Hypothyroidism Lumbar disc disease Lumbar disc herniation with radiculopathy Lumbar pain with radiation down both legs Osteoarthritis Spinal stenosis, lumbar region with neurogenic claudication Urinary retention Surgical History Hx of lumbosacral spine surgery Hx of total hip arthroplasty S/P orchiopexy 1975 Family History Father Lung cancer Cancer brain Mother Diabetes Uncle Prostate cancer Grandmother (Paternal) Stroke Family/Other Colorectal cancer Breast cancer Myocardial infarction Grandfather (Maternal) Rheumatoid arthritis Denies family history of Ovarian cancer Social History Smoking Status: Never smoker Tobacco Type: Cigarettes Age Quit Using Tobacco: 65; packs per day: 0.5; Years Smoked: 24; Cigarettes Per Day: just a few per week; Second Hand Exposure: No; Hx Alcohol Use: No Hx Substance Use: No Preferred Language: Sami Communication Ability: Effective Visual Impairment: Limited Hearing Ability: Normal Enterprise Analyst Required: No Beliefs That Will Affect Care: None marital status: Current Living Situation: Spouse current occupational status: retired How many Children do You have: 2 How many Children do You have Comment: live local, children and able to help with care as needed. Feels Safe at Home: Yes Childhood Exposure to Second-Hand Smoke: No Diet Comment: eats what he wants to , has tried to start eating "healthier" caffeine: Yes during the past year weight has: decreased > 10 lbs Dental Care, Regularly: No Physical Activity Frequency: Other Physical Activity Frequency Comment: house chores Seatbelt Use: never Sunscreen Use: No Assistive Devices: Denture - Upper, Glasses, Walker and Wheelchair Allergies Allergies Allergy/AdvReac Type Severity Reaction Status Date / Time Penicillins Allergy Intermediate HIGH Verified 05/02/21 20:58 FEVER, RASH (NOTED ALLERGIC TO "ANY-CILLIN" bee pollen Allergy Unknown Unknown Verified 05/02/21 20:58 Home Meds Home Medications Medication Instructions Recorded Confirmed glucosamine 750 [id number] 1 tab PO BID 10/22/18 05/02/21 no1 644 mg-C 30 mg-fabio 1 mg tablet (Osteo Bi-Flex Triple Strength) acetaminophen 325 mg tablet 650 mg PO Q4 PRN 02/01/21 05/02/21 atorvastatin 40 mg tablet 40 mg PO QAM 02/01/21 05/02/21 loratadine 10 mg tablet 10 mg PO QAM 02/01/21 05/02/21 polyethylene glycol 3350 17 gram 17 g PO QAM PRN 02/01/21 05/02/21 oral powder packet (Miralax) psyllium 1 packet PO QAM 02/01/21 05/02/21 sennosides 8.6 mg-docusate sodium 1 tab PO HS PRN 02/01/21 05/02/21 50 mg tablet (Senokot-S) apixaban 5 mg tablet 5 mg PO BID 02/28/21 05/02/21 fluticasone propionate 50 1 spray INTRANASAL BID PRN 02/28/21 05/02/21 mcg/actuation nasal spray,suspension gabapentin 300 mg capsule 300 mg PO TID cap 04/05/21 05/02/21 allopurinol 300 mg tablet 300 mg PO QAM 05/02/21 05/02/21 aspirin 81 mg tablet,delayed 81 mg PO QAM 05/02/21 05/02/21 release glimepiride 2 mg tablet 2 mg PO QAM 05/02/21 05/02/21 levothyroxine 112 mcg tablet 112 mcg PO UD 05/02/21 05/02/21 lisinopril 5 mg tablet 5 mg PO QAM 05/02/21 05/02/21 metoprolol succinate 100 mg 100 mg PO QAM 05/02/21 05/02/21 tablet,extended release 24 hr Previous Rx's Medication Instructions Recorded famotidine 40 mg tablet 40 mg PO HS #90 tab 11/15/20 metformin 1,000 mg tablet 1,000 mg PO BID #180 tab 01/10/21 diaper,brief,adult,disposable #126 ea 03/07/21 Roho Cushion #1 ea 03/17/21 furosemide 20 mg tablet (Lasix) 20 mg PO DAILY PRN #30 tab 04/05/21 nitroglycerin 0.4 mg sublingual 0.4 mg SUBLINGUAL ONCE #10 tab 04/28/21 tablet cefdinir 300 mg capsule 300 mg PO BID 10 Days #20 cap 05/01/21 Results & Data (ED) Vital Signs Vital Signs - 24 hr 05/02/21 19:22 05/02/21 20:44 05/02/21 22:08 Temperature 35.9 C L Temperature Source Temporal Artery Scan Pulse Rate 79 Pulse Rate [Finger] 76 Respiratory Rate 18 16 Respiratory Effort / Characteristics Non-Labored Non-Labored Spontaneous Respiratory Depth Normal Normal Blood Pressure 106/71 Blood Pressure [Left Arm] 97/64 L Blood Pressure Mean 82 Blood Pressure Mean [Left Arm] 75 Pulse Oximetry 95 98 95 Oxygen Delivery Method Room Air Room Air Room Air Sepsis Recent Fever Within 48 Hours No Sepsis New/Unexplained Change in Mental Status No Sepsis Action Taken by Nursing No Action Required 05/02/21 22:39 05/03/21 00:42 Temperature Temperature Source Pulse Rate Pulse Rate [Finger] 79 69 Respiratory Rate 16 18 Respiratory Effort / Characteristics Non-Labored Spontaneous Non-Labored Spontaneous Respiratory Depth Normal Normal Blood Pressure Blood Pressure [Left Arm] 112/79 116/70 Blood Pressure Mean Blood Pressure Mean [Left Arm] 90 85 Pulse Oximetry 93 92 Oxygen Delivery Method Room Air Room Air Sepsis Recent Fever Within 48 Hours Sepsis New/Unexplained Change in Mental Status Sepsis Action Taken by Nursing Laboratory Data Result diagrams: 05/02/21 20:35 05/02/21 20:35 Lab Results 05/02/21 05/02/21 05/02/21 Range/Units 20:35 20:35 20:35 WBC 9.36 (4.8-10.8) K/uL RBC 4.55 L (4.7-6.1) M/uL Hgb 13.8 L (14.0-18.0) g/dL Hct 40.2 L (42-52) % MCV 88.4 (80-100) fL MCH 30.3 (25-34) pg MCHC 34.3 (32-36) g/dL RDW Std Deviation 42.9 (36.4-46.3) fL RDW Coeff of Radha 13.5 (11.5-14.5) % Plt Count 471 H (130-400) K/uL MPV 10.4 (7.4-10.4) fL Immature Gran % (Auto) 0.7 % Neut % (Auto) 61.6 % Lymph % (Auto) 30.0 % [place] % (Auto) 5.4 % Eos % (Auto) 1.7 % Baso % (Auto) 0.6 % Neut # (Auto) 5.75 (1.4-6.5) K/uL Lymph # (Auto) 2.81 (1.2-3.4) K/uL [place] # (Auto) 0.51 (0.11-0.59) K/uL Eos # (Auto) 0.16 (0-0.5) K/uL Baso # (Auto) 0.06 (0-0.2) K/uL Immature Gran # (Auto) 0.07 H (0.00-0.02) K/uL APTT Cancelled PTT Ratio Cancelled Sodium 133 L (136-145) mmol/L Potassium 4.2 (3.5-5.1) mmol/L Chloride 96 L (98-107) mmol/L Carbon Dioxide 27 (21-32) mmol/L Anion Gap 10.0 (3-11) BUN 24 H (7-18) mg/dl Creatinine 0.90 (0.6-1.4) mg/dl Est Cr Clr Drug Dosing Not Reportable Est GFR ( Amer) 100.6 ml/min Est GFR (Non-Af Amer) 86.8 ml/min BUN/Creatinine Ratio 26.6 H (10-20) Glucose 134 H (70-99) mg/dl Calcium 9.7 (8.5-10.1) mg/dl Total Bilirubin 0.4 (0.2-1) mg/dl AST 18 (15-37) U/L ALT 41 (12-78) U/L Alkaline Phosphatase 109 (45-117) U/L Troponin I 0.069 H* (0-0.045) ng/ml Total Protein 8.1 (6.4-8.2) gm/dl Albumin 3.2 L (3.4-5.0) gm/dl Globulin 4.9 H (2.5-4.0) gm/dl Albumin/Globulin Ratio 0.7 L (0.9-2) Lipase 70 L (73-393) U/L Specimen Hemolysis COVID-19 Eval Order SARS-CoV-2 (PCR) (Negative) 05/02/21 05/02/21 05/02/21 Range/Units 22:23 23:00 23:00 WBC (4.8-10.8) K/uL RBC (4.7-6.1) M/uL Hgb (14.0-18.0) g/dL Hct (42-52) % MCV (80-100) fL MCH (25-34) pg MCHC (32-36) g/dL RDW Std Deviation (36.4-46.3) fL RDW Coeff of Radha (11.5-14.5) % Plt Count (130-400) K/uL MPV (7.4-10.4) fL Immature Gran % (Auto) % Neut % (Auto) % Lymph % (Auto) % [place] % (Auto) % Eos % (Auto) % Baso % (Auto) % Neut # (Auto) (1.4-6.5) K/uL Lymph # (Auto) (1.2-3.4) K/uL [place] # (Auto) (0.11-0.59) K/uL Eos # (Auto) (0-0.5) K/uL Baso # (Auto) (0-0.2) K/uL Immature Gran # (Auto) (0.00-0.02) K/uL APTT 25.2 PTT Ratio 1.0 Sodium (136-145) mmol/L Potassium (3.5-5.1) mmol/L Chloride (98-107) mmol/L Carbon Dioxide (21-32) mmol/L Anion Gap (3-11) BUN (7-18) mg/dl Creatinine (0.6-1.4) mg/dl Est Cr Clr Drug Dosing Est GFR ( Amer) ml/min Est GFR (Non-Af Amer) ml/min BUN/Creatinine Ratio (10-20) Glucose (70-99) mg/dl Calcium (8.5-10.1) mg/dl Total Bilirubin (0.2-1) mg/dl AST (15-37) U/L ALT (12-78) U/L Alkaline Phosphatase (45-117) U/L Troponin I (0-0.045) ng/ml Total Protein (6.4-8.2) gm/dl Albumin (3.4-5.0) gm/dl Globulin (2.5-4.0) gm/dl Albumin/Globulin Ratio (0.9-2) Lipase (73-393) U/L Specimen Hemolysis COVID-19 Eval [address] Covid[address] [facility] SARS-CoV-2 (PCR) NEGATIVE (Negative) Administered Medications Cefdinir (Cefdinir 300 Mg Cap) 300 mg PO BID NOAH Stop: 05/08/21 23:29 Last Admin: 05/03/21 00:06 Dose: 300 mg Documented by: [id number] Heparin Sodium/Dextrose (Heparin Sodium/Dextrose) 25,000 units in 500 mls @ 0.02 mls/hr IV .Q24H NOAH; Protocol Stop: 06/01/21 23:29 Last Admin: 05/03/21 00:03 Dose: 1,000 units/hr, 20 mls/hr Documented by: [id number] Cosigned by: [id number] Discontinued Medications Aspirin (Aspirin Chew 324 Mg) 324 mg PO NOW STA Stop: 05/02/21 22:16 Last Admin: 05/02/21 22:37 Dose: 324 mg Documented by: [id number] Heparin Sodium (Porcine) (Heparin Sod (Porcine) 1000 Unit/Ml) 1 units IV NOW ONE Stop: 05/02/21 23:31 Last Admin: 05/03/21 00:02 Dose: 4,000 units Documented by: [id number] Cosigned by: [id number] Heparin Sodium/Dextrose (Heparin Iv Adult Wt-Based Low-Dose With Bolus Protocol) 1 ea IV NOW STA; Protocol Stop: 05/02/21 23:16 Last Admin: 05/03/21 00:03 Dose: 1 ea Documented by: [id number] Imaging Data Radiologist's Impression: Chest X-Ray 05/02/21 20:18 XR chest 1V portable CLINICAL HISTORY: Chest Pain COMPARISON STUDY: April 24, 2021 FINDINGS: No pneumothorax. No pleural effusion. No large infiltrates or consolidative lesions are seen. Previously seen ill- defined opacities at the right base are no longer visualized. Cardiomediastinal silhouette is within normal limits in size. No significant pulmonary vascular congestion.. Aorta is calcified. Osseous structures: Degenerative changes of the spine. IMPRESSION: 1. No acute pulmonary process. ACT 112: Negative or not required by law. The above report was generated using voice recognition software. It may contain grammatical, syntax or spelling errors. Electronically signed by: Pat Pinto DO 05/02/2021 9:27 PM Discharge Plan Visit Data Chief Complaint: Chest Pain Stated Complaint: CHEST PAIN ED Provider: Houston Zapata Discharge Problem: CAD (coronary artery disease), Non-ST elevation AK (NSTEMI) Forms Stand Alone Forms: My [employer] Prescriptions Prescriptions: No Action [id number] [Osteo Bi-Flex Triple Strength] 750 mg-644 mg- 30 mg-1 mg tablet 1 tab PO BID RF: 0 metformin 1,000 mg tablet 1,000 mg PO BID Qty: 180 RF: 1 (DME) Roho Cushion See Rx Instructions .Route .MEDSUPPLY Qty: 1 RF: 0 cefdinir 300 mg capsule 300 mg PO BID 10 Days Qty: 20 RF: 0 famotidine 40 mg tablet 40 mg PO HS Qty: 90 RF: 1 (DME) diaper,brief,adult,disposable Misc See Rx Instructions .ROUTE .MEDSUPPLY Qty: 126 RF: 3 furosemide [Lasix] 20 mg tablet 20 mg PO DAILY PRN (Reason: edema) Qty: 30 RF: 2 atorvastatin 40 mg tablet 40 mg PO QAM RF: 0 psyllium Packet 1 packet PO QAM RF: 0 loratadine 10 mg Tablet 10 mg PO QAM RF: 0 polyethylene glycol 3350 [Miralax] 17 gram powder in packet 17 g PO QAM PRN (Reason: Constipation) RF: 0 sennosides-docusate sodium [Senokot-S] 8.6-50 mg tablet 1 tab PO HS PRN (Reason: Constipation) RF: 0 acetaminophen 325 mg Tablet 650 mg PO Q4 PRN (Reason: Pain) RF: 0 apixaban 5 mg Tablet 5 mg PO BID RF: 0 fluticasone propionate 50 mcg/actuation [place],Suspension 1 spray INTRANASAL BID PRN (Reason: Nasal Congestion) RF: 0 gabapentin 300 mg capsule 300 mg PO TID RF: 0 nitroglycerin 0.4 mg tablet, sublingual 0.4 mg sublingual ONCE Qty: 10 RF: 0 metoprolol succinate 100 mg tablet extended release 24 hr 100 mg PO QAM RF: 0 aspirin 81 mg tablet,delayed release (DR/EC) 81 mg PO QAM RF: 0 glimepiride 2 mg tablet 2 mg PO QAM RF: 0 allopurinol 300 mg tablet 300 mg PO QAM RF: 0 lisinopril 5 mg tablet 5 mg PO QAM RF: 0 levothyroxine 112 mcg tablet 112 mcg PO UD RF: 0 Referrals Referrals: Liz Kirby DO [Primary Care Provider] - Discharge Problem: CAD (coronary artery disease) Qualifiers: Coronary Disease-Associated Artery/Lesion type: [place] artery [place] vs. transplanted heart: unspecified whether [place] or transplanted heart Associated angina: unspecified whether angina present Qualified Code(s): I25.10 - Atherosclerotic heart disease of [place] coronary artery without angina pectoris
[2021-05-02 20:43] LABS: Basophils # (auto) 0.06 K/uL (0-0.2); Basophils % (auto) 0.6 %; Eosinophils # (auto) 0.16 K/uL (0-0.5); Eosinophils % (auto) 1.7 %; Hematocrit (blood only) 40.2 % (42-52); Hemoglobin 13.8 g/dL (14.0-18.0); Immature Granulocytes # (auto) 0.07 K/uL (0.00-0.02); Immature Granulocytes % (auto) 0.7 %; Lymphocytes # (auto) 2.81 K/uL (1.2-3.4); Mean Corpuscular Hemoglobin 30.3 pg (25-34); Mean Corpuscular Hgb Conc 34.3 g/dL (32-36); Mean Corpuscular Volume 88.4 fL (80-100); Mean Platelet Volume 10.4 fL (7.4-10.4); Monocytes # (auto) 0.51 K/uL (0.11-0.59); Monocytes % (auto) 5.4 %; Neutrophils # (auto) 5.75 K/uL (1.4-6.5); Neutrophils % (auto) 61.6 %; Platelet Count 471 K/uL (130-400); RDW Coefficient of Variation 13.5 % (11.5-14.5); RDW Standard Deviation 42.9 fL (36.4-46.3); Red Blood Count 4.55 M/uL (4.7-6.1); White Blood Count 9.36 K/uL (4.8-10.8)
--- NOTE | 2021-05-02 21:28 | XRay Report ---
XR chest 1V portable CLINICAL HISTORY: Chest Pain COMPARISON STUDY: April 24, 2021 FINDINGS: No pneumothorax. No pleural effusion. No large infiltrates or consolidative lesions are seen. Previously seen ill-defined opacities at the right base are no longer visualized. Cardiomediastinal silhouette is within normal limits in size. No significant pulmonary vascular congestion.. Aorta is calcified. Osseous structures: Degenerative changes of the spine. IMPRESSION: 1. No acute pulmonary process. ACT 112: Negative or not required by law. The above report was generated using voice recognition software. It may contain grammatical, syntax o r spelling errors. Electronically signed by: Pat Pinto DO 05/02/2021 9:27 PM
[2021-05-02 21:36] LABS: Alanine Aminotransferase 41 U/L (12-78); Albumin Level 3.2 gm/dl (3.4-5.0); BUN Creatinine Ratio 26.6 (10-20); Blood Urea Nitrogen 24 mg/dl (7-18); Calcium 9.7 mg/dl (8.5-10.1); Carbon Dioxide 27 mmol/L (21-32); Chloride 96 mmol/L (98-107); Est GFR (African American) 100.6 ml/min; Est GFR (Non-African American) 86.8 ml/min; Glucose 134 mg/dl (70-99); Lipase 70 U/L (73-393); Potassium 4.2 mmol/L (3.5-5.1); Sodium 133 mmol/L (136-145)
[2021-05-02 21:56] LABS: Albumin Globulin Ratio 0.7 (0.9-2); Alkaline Phosphatase 109 U/L (45-117); Aspartate Aminotransferase 18 U/L (15-37); Bilirubin,Total 0.4 mg/dl (0.2-1); Globulin 4.9 gm/dl (2.5-4.0); Total Protein 8.1 gm/dl (6.4-8.2); Troponin I 0.069 ng/ml (0-0.045)
[2021-05-02] MEDS ORDERED: ASPIRIN CHEW 324 MG PO STA (22:15)
[2021-05-02 22:48] LABS: Partial Thromboplastin Time 25.2 Seconds (21.0-31.0)
[2021-05-02] MEDS ORDERED: Heparin IV Adult Wt-Based Low-Dose WITH Bolus Protocol IV STA (23:15)
[2021-05-02] MEDS ORDERED: HEPARIN SOD (PORCINE) 1000 UNIT/ML IV ONE (23:30)
[2021-05-02] MEDS ORDERED: CEFDINIR 300 MG CAP PO SCH (23:30)
[2021-05-02] MEDS ORDERED: HEPARIN SODIUM/DEXTROSE 25,000 UNITS/500 ML BAG IV SCH (23:30)
--- NOTE | 2021-05-02 23:48 | History & Physical Report ---
Date of Service May 02, 2021 Assessment & Plan (1) Chest pain: Plan: Frederic Camejo III is a 70-year-old male with past medical history significant for spinal cord injury/cauda equina syndrome, urinary retention with need for daily self catheterization, and T2DM (A1c 6.9 in 04/2021) who presented to [facility] ED on 05/02 for intermittent chest pain and progressive generalized weakness/fatigue since being discharged from [facility] on 04/28. He is being admitted with plan to transfer [place] [facility] [place], hopefully tomorrow. Chest Pain; Generalized Weakness In context of severe CAD appreciated via cath on 04/28. Suspect ongoing angina/ischemia due to severe CAD. No chest pain currently. Requires CABG in the very near future. - cardiac cath on 04/28 showed 90% LMCA and severe stenosis throughout LAD, circumflex and RCA - Cardiology consulted - appreciate recs - tentative plan for transfer tomorrow to [facility] [place] - continue home Metoprolol succinate, Atorvastatin - Heparin gtt started in the ED - will continue for now - hold home Eliquis while on Heparin gtt - EKG PRN chest pain - SL Nitro PRN chest pain HFrEF New diagnosis per TTE during last hospitalization - showing EF 35-40%, moderately reduced LV systolic function, and severe hypokinesis/akinesis of mid- distal inferior wall as well as global hypokinesis. Suspect ischemic cardiomyopathy. - continue home Lisinopril, Lasix 5mg PO daily - f/u with [facility] Heart Failure clinic and Cardiology after discharge Recent Catheter-associated UTI Diagnosed and treated during last hospitalization. Blood/urine cx grew E. coli sensitive to CTX. CT A/P with evidence of cystitis + right pyelonephritis. - repeat blood cx 04/27 negative after 24 hours and remained afebrile/asymptomatic since then - was transitioned to Cefdinir on 04/28 but did not take it - continue with Cefdinir 300mg PO BID x7 days - recommend patient follows up with PCP to obtain saline flushes and sufficient urinary catheters in order to avoid needing to re-use them H/o Pulmonary Embolism - held Eliquis as stated above Cauda Equina Syndrome/Urinary Retention - continue PRN straight urinary caths and home meds T2DM A1c 6.9 last admission. At goal (<7). - SSI while hospitalized Hypothyroidism - continue home Synthroid GERD - continue home Pepcid/Omeprazole FEN/GI: heart-healthy diet DVT Prophylaxis: Heparin gtt Code Status: Full code Disposition: med/surg with tele (2) Cardiomyopathy: (3) Acute non-ST elevation myocardial infarction (NSTEMI): (4) Catheter-associated urinary tract infection: (5) Hypothyroidism: (6) Diabetes: (7) Acute hyponatremia: (8) Urinary retention: (9) Cauda equina compression: (10) Lumbar disc disease: (11) Osteoarthritis: History of Present Illness Chief Complaint: chest pain, weakness Primary Care Provider: Liz Kirby DO Frederic Camejo III is a 70-year-old male with past medical history significant for spinal cord injury/cauda equina syndrome, urinary retention with need for daily self catheterization, and T2DM (A1c 6.9 in 04/2021) who presented to [facility] ED on 05/02 for intermittent chest pain and progressive generalized weakness/fatigue since being discharged from [facility] on 04/28. Mr. Camejo was admitted to [facility] from 04/24 - 04/28 for sepsis due to catheter- associated UTI (with bacteremia) and was also found to have NSTEMI as well as new HFrEF (EF 35-40%). He was treated with CTX IV starting on 04/25 and was transitioned to Cefdinir on 04/28, although the patient reports that he was unable to warp picker this medication from his pharmacy and so has not taken it since then. He underwent cardiac catheterization on 04/28, after having negative blood cultures and no fevers for >48 hours, and the cath showed severe multi-vessel disease including 90% stenosis of LMCA. It was recommended that the patient be transferred for CABG, but the patient elected to go home instead, and schedule consultation as outpatient with CTS for CABG. Patient reports that since going home he has been so tired/fatigued that he can barely move from his wheel chair to the couch. He reports substernal non- radiating chest pressure with physical exertion. He decided to come to the hospital in order to arrange for CABG sooner. He is continuing to use straight urinary catheters to self-cath without issues. Denies fever/chills or suprapubic tenderness. Denies cloudy/malodorous urine. Denies syncope, near-syncope, diaphoresis, SOB, cough, LE edema. In the ED the patient was hemodynamically stable and satting well on RA. Laboratory evaluation revealed mild hyponatremia of 133 (same as previous hospitalization) and Troponin of .069 (had peaked at >12 during last hospitalization and was ~6 when last measured on 04/28). CXR was unremarkable. He was started on Heparin bolus + gtt, given Aspirin 324mg x1, and we were called for admission. Of note, our ED physician was unable to transfer patient to [facility] or to [facility] for CABG. [facility] Cardiology is aware of the patient being admitted with plans for transfer for CABG. Allergies Allergy/AdvReac Type Severity Reaction Status Date / Time Penicillins Allergy Intermediate HIGH Verified 05/02/21 20:58 FEVER, RASH (NOTED ALLERGIC TO "ANY-CILLIN" bee pollen Allergy Unknown Unknown Verified 05/02/21 20:58 Home Medications Medication Instructions Recorded Confirmed Type glucosamine 750 [id number] 1 tab PO BID 10/22/18 05/02/21 History no1 644 mg-C 30 mg-fabio 1 mg tablet (Osteo Bi-Flex Triple Strength) famotidine 40 mg tablet 40 mg PO HS #90 tab 11/15/20 05/02/21 Rx metformin 1,000 mg tablet 1,000 mg PO BID #180 tab 01/10/21 05/02/21 Rx acetaminophen 325 mg tablet 650 mg PO Q4 PRN 02/01/21 05/02/21 History atorvastatin 40 mg tablet 40 mg PO QAM 02/01/21 05/02/21 History loratadine 10 mg tablet 10 mg PO QAM 02/01/21 05/02/21 History polyethylene glycol 3350 17 gram 17 g PO QAM PRN 02/01/21 05/02/21 History oral powder packet (Miralax) psyllium 1 packet PO QAM 02/01/21 05/02/21 History sennosides 8.6 mg-docusate sodium 1 tab PO HS PRN 02/01/21 05/02/21 History 50 mg tablet (Senokot-S) apixaban 5 mg tablet 5 mg PO BID 02/28/21 05/02/21 History fluticasone propionate 50 1 spray INTRANASAL BID PRN 02/28/21 05/02/21 History mcg/actuation nasal spray,suspension diaper,brief,adult,disposable #126 ea 06/15/21 08/10/21 Rx Roho Cushion #1 ea 03/17/21 05/02/21 Rx furosemide 20 mg tablet (Lasix) 20 mg PO DAILY PRN #30 tab 04/05/21 05/02/21 Rx gabapentin 300 mg capsule 300 mg PO TID cap 04/05/21 05/02/21 History nitroglycerin 0.4 mg sublingual 0.4 mg SUBLINGUAL ONCE #10 tab 04/28/21 05/02/21 Rx tablet cefdinir 300 mg capsule 300 mg PO BID 10 Days #20 cap 05/01/21 05/02/21 Rx allopurinol 300 mg tablet 300 mg PO QAM 05/02/21 05/02/21 History aspirin 81 mg tablet,delayed 81 mg PO QAM 05/02/21 05/02/21 History release glimepiride 2 mg tablet 2 mg PO QAM 05/02/21 05/02/21 History levothyroxine 112 mcg tablet 112 mcg PO UD 05/02/21 05/02/21 History lisinopril 5 mg tablet 5 mg PO QAM 05/02/21 05/02/21 History metoprolol succinate 100 mg 100 mg PO QAM 05/02/21 05/02/21 History tablet,extended release 24 hr Past Med/Surg History Medical History Allergic rhinitis Cauda equina syndrome Constipation Diabetes Dyslipidemia (high LDL; low HDL) GERD (gastroesophageal reflux disease) Gout Hx of testicular cancer Hypertension Hypothyroidism Lumbar disc disease Lumbar disc herniation with radiculopathy Lumbar pain with radiation down both legs Osteoarthritis Spinal stenosis, lumbar region with neurogenic claudication Urinary retention Surgical History Hx of lumbosacral spine surgery Hx of total hip arthroplasty S/P orchiopexy 1975 Family History Father Lung cancer Cancer brain Mother Diabetes Uncle Prostate cancer Grandmother (Paternal) Stroke Family/Other Colorectal cancer Breast cancer Myocardial infarction Grandfather (Maternal) Rheumatoid arthritis Denies family history of Ovarian cancer Social History Smoking Status: Unknown if ever smoked Tobacco Type: Cigarettes Age Quit Using Tobacco: 65; packs per day: 0.5; Years Smoked: 24; Cigarettes Per Day: just a few per week; Second Hand Exposure: No; Hx Alcohol Use: No Hx Substance Use: No Preferred Language: Frisian Communication Ability: Effective Visual Impairment: Limited Hearing Ability: Normal Call Center Rn Required: No Beliefs That Will Affect Care: None marital status: Current Living Situation: Spouse current occupational status: retired How many Children do You have: 2 How many Children do You have Comment: live local, children and able to help with care as needed. Other Information That Helps Us Care for You: No Feels Safe at Home: Yes Safety Concerns: Feels Safe At This Time Childhood Exposure to Second-Hand Smoke: No Diet Comment: eats what he wants to , has tried to start eating "healthier" caffeine: Yes during the past year weight has: decreased > 10 lbs Dental Care, Regularly: No Physical Activity Frequency: Other Physical Activity Frequency Comment: house chores Seatbelt Use: never Sunscreen Use: No Assistive Devices: Denture - Upper, Glasses, Walker and Wheelchair Review of Systems Review of Systems: All systems reviewed & are unremarkable except as noted in HPI & below Physical Exam Physical Exam: General: A&Ox3. NAD. Cooperative. HEENT: Atraumatic, normocephalic. Pulm: CTAB A&P. -wheezes, -rales, -rhonchi. Symmetrical chest rise. No increase work of breathing. No respiratory distress. Chest: no pain with palpation of chest/sternum Cardiac: RRR, -mrg. Radial pulses intact and symmetrical. No LE edema. Abdominal: soft, non-tender, non-distended, BS x 4 Skin: warm, dry, no rash Results & Data Results & Data ([facility]) Vital Signs (Past 12 Hours) Vital Signs Temp Pulse Pulse Resp BP BP Pulse Ox 05/02/21 22:39 79 16 112/79 93 05/02/21 22:08 76 16 97/64 L 95 05/02/21 20:44 98 05/02/21 19:22 35.9 C L 79 18 106/71 95 Code Status & VTE Plan VTE Prophylaxis Plan VTE Prophylaxis will be ordered: Yes Supervising Physician Co-Signing Physician Notes Patient seen and examined, chart reviewed, case discussed with Dr. Landaverde and I agree with his assessment and plan as above. In brief, patient is a 70yo male with multi-vessel CAD dx by catheterization, CAUTI with bacteremia on Cefdinir. Patient presents with progressive fatigue as well as exertional chest pain. Was recommended transfer to tertiary care facility for CABG during last admission - however, opted for home with plan to arrange outpatient CABG. He was to have the surgery performed at [facility] two days ago but was informed that [facility] was out of network. Was then scheduled at [place] on 05/18 or ?echocardiogram? On exam his is afebrile, HD stable, NAD Skin - intact HEENT - NC/AT, PERRL, MMM, Neck supple Heart - +S1/S2, regular, no m/r/g Lungs - CTA, no rales/rhonchi/wheezes Abd - +BS, soft, NT/ND Ext - warm, well perfused Labs and images reviewed. Assessment/Plan - 70yo C male with severe multivessel CAD presenting with progression of exertional chest pain as well as weakness and fatigue. Presently CP free. -Heparin gtt -To be transferred to [facility] when bed becomes available for possible CABG -Continue Cardiac medications - ASA, Atorvastatin, Metoprolol, Lisinopril -Continue Cefdinir for CAUTI/Bacteremia -Hold oral diabetic regimen. Lantus/Novolog while inpatient with goal blood sugar 100 - 140 -Hold Apixaban while on Heparin gtt. Last Apixaban on 05/02/21 at 06:00 -Remainder of plan as above Resident Activity Tracking Resident Involvement: Resident Care Provided Care Provided: Adult Hospital Medicine (1) Catheter-associated urinary tract infection Encounter type: initial encounter Indwelling urinary catheter type: unspecified Qualified Code(s): T83.511A - Infection and inflammatory reaction due to indwelling urethral catheter, initial encounter; N39.0 - Urinary tract infection, site not specified (2) Hypothyroidism Hypothyroidism type: unspecified Qualified Code(s): E03.9 - Hypothyroidism, unspecified
[2021-05-03] MEDS ORDERED: CARBOHYDRATES FOR HYPOGLYCEMIA PO PRN (01:29)
[2021-05-03] MEDS ORDERED: GLUCOSE 40% GEL 15 GM TUBE PO PRN (01:29)
[2021-05-03] MEDS ORDERED: GLUCOSE 10 TABS/TUBE PO PRN (01:29)
[2021-05-03] MEDS ORDERED: DIAPER BRIEF ADULT DISPOSABLE SCH (01:29)
[2021-05-03] MEDS ORDERED: ACETAMINOPHEN 325 MG TAB PO PRN (01:29)
[2021-05-03] MEDS ORDERED: GLUCAGON FOR INJ 1 MG VIAL SQ PRN (01:29)
[2021-05-03] MEDS ORDERED: POLYETHYLENE (MIRALAX) 17 GM PACK PO PRN (01:29)
[2021-05-03] MEDS ORDERED: NITROGLYCERIN SL 0.4 MG/TAB TAB SL PRN (01:29)
[2021-05-03] MEDS ORDERED: DEXTROSE 50% 50 ML SYRINGE IV PRN (01:29)
[2021-05-03] MEDS ORDERED: DOCUSATE SODIUM/SENNA 50/8.6MG TAB PO PRN (01:29)
[2021-05-03] MEDS ORDERED: FUROSEMIDE 20 MG TAB PO PRN (01:29)
--- NOTE | 2021-05-03 04:15 | Discharge Summary ---
Date of Service May 03, 2021 Admission HPI Per Admitting Provider Frederic Camejo III is a 70-year-old male with past medical history significant for spinal cord injury/cauda equina syndrome, urinary retention with need for daily self catheterization, and T2DM (A1c 6.9 in 04/2021) who presented to [facility] ED on 05/02 for intermittent chest pain and progressive generalized weakness/fatigue since being discharged from [facility] on 04/28. Mr. Camejo was admitted to [facility] from 04/24 - 04/28 for sepsis due to catheter- associated UTI (with bacteremia) and was also found to have NSTEMI as well as new HFrEF (EF 35-40%). He was treated with CTX IV starting on 04/25 and was transitioned to Cefdinir on 04/28, although the patient reports that he was unable to scrap picker this medication from his pharmacy and so has not taken it since then. He underwent cardiac catheterization on 04/28, after having negative blood cul tures and no fevers for >48 hours, and the cath showed severe multi-vessel disease including 90% stenosis of LMCA. It was recommended that the patient be transferred for CABG, but the patient elected to go home instead, and schedule consultation as outpatient with CTS for CABG. Patient reports that since going home he has been so tired/fatigued that he can barely move from his wheel chair to the couch. He reports substernal non- radiating chest pressure with physical exertion. He decided to come to the hospital in order to arrange for CABG sooner. He is continuing to use straight urinary catheters to self-cath without issues. Denies fever/chills or suprapubic tenderness. Denies cloudy/malodorous urine. Denies syncope, near-syncope, diaphoresis, SOB, cough, LE edema. In the ED the patient was hemodynamically stable and satting well on RA. Laboratory evaluation revealed mild hyponatremia of 133 (same as previous hospitalization) and Troponin of .069 (had peaked at >12 during last hosp italization and was ~6 when last measured on 04/28). CXR was unremarkable. He was started on Heparin bolus + gtt, given Aspirin 324mg x1, and we were called for admission. Of note, our ED physician was unable to transfer patient to [facility] or to [facility] for CABG. [facility] Cardiology is aware of the patient being admitted with plans for transfer for CABG. Admission Exam (Per Admitting) Constitutional WD/WN, vitals as above Eyes PERRL, conjunctivae normal, anicteric sclerae Respiratory normal respiratory effort, lungs clear to auscultation Cardiovascular RRR, no murmur, no edema Gastrointestinal (Abdomen) normal bowel sounds, soft, nontender, no hepatosplenomegaly Skin no rashes, warm and dry Discharge Data Consultations 05/02/21 22:20 ED Decision to Admit Stat 05/03/21 01:29 Consult Cardiology Routine Hospital Course (1) CAD (coronary artery disease): Frederic Camejo III is a 70-year-old male with past medical history significant for spinal cord injury/cauda equina syndrome, urinary retention with need for daily self catheterization, and T2DM (A1c 6.9 in 04/2021) who presented to [facility] ED on 05/02 for intermittent chest pain and progressive generalized weakness/fatigue since being discharged from [facility] on 04/28. He is being admitted with plan to transfer to [facility] for CABG, hopefully tomorrow. Chest Pain; Generalized Weakness In context of severe CAD appreciated via cath on 04/28. Suspect ongoing angina/ischemia due to severe CAD. No chest pain currently. Requires CABG in the very near future. - cardiac cath on 04/28 showed 90% LMCA and severe stenosis throughout LAD, circumflex and RCA - Cardiology consulted - appreciate recs -Patient to be transferred to [facility] for CABG - continue home Metoprolol succinate, Atorvastatin - Heparin gtt started in the ED - will continue for now - hold home Eliquis while on Heparin gtt - EKG PRN chest pain - SL Nitro PRN chest pain HFrEF New diagnosis per TTE during last hospitalization - showing EF 35-40%, moderately reduced LV systolic function, and severe hypokinesis/akinesis of mid- distal inferior wall as well as global hypokinesis. Suspect ischemic cardiomyopathy. - continue home Lisinopril, Lasix 5mg PO daily - f/u with [facility] Heart Failure clinic and Cardiology after discharge Recent Catheter-associated UTI Diagnosed and treated during last hospitalization. Blood/urine cx grew E. coli sensitive to CTX. CT A/P with evidence of cystitis + right pyelonephritis. - repeat blood cx 04/27 negative after 24 hours and remained afebrile/asymptomatic since then - was transitioned to Cefdinir on 04/28 but did not take it - continue with Cefdinir 300mg PO BID x7 days - recommend patient follows up with PCP to obtain saline flushes and sufficient urinary catheters in order to avoid needing to re-use them H/o Pulmonary Embolism - held Eliquis as stated above Cauda Equina Syndrome/Urinary Retention - continue PRN straight urinary caths and home meds T2DM A1c 6.9 last admission. At goal (<7). - SSI while hospitalized Hypothyroidism - continue home Synthroid GERD - continue home Pepcid/Omeprazole FEN/GI:NPO DVT Prophylaxis: Heparin gtt Code Status: Full code Disposition: med/surg with tele (2) Hypothyroidism: (3) Diabetes: Coding Level of Care Code D/C DAY MANAGEMENT <30 MINS Diagnoses CAD (coronary artery disease) I25.10 Associated angina: unspecified whether angina present Coronary Disease-Associated Artery/Lesion type: [place] artery [place] vs. transplanted heart: unspecified whether [place] or transplanted heart Hypothyroidism E03.9 Hypothyroidism type: unspecified Diabetes E11.9
--- NOTE | 2021-05-03 04:35 | Billing Data ---
Date of Service May 03, 2021 Coding Level of Care Code 46398 Initial Inpt Care Lvl 2
[2021-05-03] MEDS ORDERED: LEVOTHYROXINE SODIUM 100 MCG TABLET PO SCH (06:30)
[2021-05-03 06:46] LABS: Basophils # (auto) 0.07 K/uL (0-0.2); Basophils % (auto) 0.8 %; Eosinophils # (auto) 0.19 K/uL (0-0.5); Eosinophils % (auto) 2.1 %; Hematocrit (blood only) 35.1 % (42-52); Hemoglobin 11.9 g/dL (14.0-18.0); Immature Granulocytes # (auto) 0.09 K/uL (0.00-0.02); Lymphocytes # (auto) 2.54 K/uL (1.2-3.4); Mean Corpuscular Hemoglobin 29.7 pg (25-34); Mean Corpuscular Hgb Conc 33.9 g/dL (32-36); Mean Corpuscular Volume 87.5 fL (80-100); Mean Platelet Volume 10.5 fL (7.4-10.4); Monocytes # (auto) 0.56 K/uL (0.11-0.59); Monocytes % (auto) 6.2 %; Neutrophils # (auto) 5.61 K/uL (1.4-6.5); Neutrophils % (auto) 61.9 %; Platelet Count 420 K/uL (130-400); RDW Coefficient of Variation 13.5 % (11.5-14.5); Red Blood Count 4.01 M/uL (4.7-6.1); White Blood Count 9.06 K/uL (4.8-10.8)
[2021-05-03 06:56] LABS: Partial Thromboplastin Ratio 1.1; Partial Thromboplastin Time 29.7 Seconds (21.0-31.0)
[2021-05-03] MEDS ORDERED: HEPARIN IV BOLUS 4,500 UNITS in SYRINGE 0 ML IV ONE (07:15)
[2021-05-03 07:24] LABS: BUN Creatinine Ratio 27.7 (10-20); Creatinine Clr Calc Pharmacy 99.7 ml/min; Est GFR (African American) 104.1 ml/min; Est GFR (Non-African American) 89.8 ml/min; Potassium 3.8 mmol/L (3.5-5.1)
[2021-05-03 07:25] LABS: Phosphorus 4.7 mg/dl (2.5-4.9)
[2021-05-03] MEDS ORDERED: INSULIN ASPART 100 UNITS/ML 3 ML PEN SC SCH (07:30)
[2021-05-03] MEDS ORDERED: GABAPENTIN 300 MG CAP PO SCH (09:00)
[2021-05-03] MEDS ORDERED: lisinopril 5 MG TAB PO SCH (09:00)
[2021-05-03] MEDS ORDERED: ATORVASTATIN 40 MG TAB PO SCH (09:00)
[2021-05-03] MEDS ORDERED: allopurinoL 300 MG TAB PO SCH (09:00)
[2021-05-03] MEDS ORDERED: METOPROLOL SUCC 50MG EXT REL TAB PO SCH (09:00)
[2021-05-03] MEDS ORDERED: ASPIRIN 81 MG ECTAB PO SCH (09:00)
--- NOTE | 2021-05-03 13:56 | Electrocardiogram Report ---
Test Reason : Blood Pressure : / mmHG Vent. Rate : 075 BPM Atrial Rate : 075 BPM P-R Int : 156 ms QRS Dur : 092 ms QT Int : 406 ms P-R-T Axes : 065 000 -87 degrees QTc Int : 453 ms Normal sinus rhythm T wave abnormality, consider inferior ischemia T wave abnormality, consider anterolateral ischemia Abnormal ECG When compared with ECG of 26-APR-2021 03:37, QT has shortened Confirmed by Castillo Winston ([id number]) on 05/03/2021 1:55:44 PM Referred By: Liz Kirby Confirmed By:Cornelius Winston
[2021-05-03] MEDS ORDERED: FAMOTIDINE 40 MG TABLET PO SCH (21:00)
[2021-05-05] MEDS ORDERED: LEVOTHYROXINE SODIUM 200 MCG TABLET PO SCH ×2 (06:30)
== END 2021-05-03 08:31 | disposition short-term general hospital (02) | DRG 281 ==
LOC: ED 19:20 → 2S 23:31
DX: Z79.84 Long term (current) use of oral hypoglycemic drugs; I21.4 Non-ST elevation (NSTEMI) myocardial infarction; E11.9 Type 2 diabetes mellitus without complications; E03.9 Hypothyroidism, unspecified; Z96.649 Presence of unspecified artificial hip joint; I42.9 Cardiomyopathy, unspecified; Z88.0 Allergy status to penicillin; G83.4 Cauda equina syndrome; K21.9 Gastro-esophageal reflux disease without esophagitis; R33.9 Retention of urine, unspecified; I25.10 Atherosclerotic heart disease of native coronary artery without angina pectoris; I50.20 Unspecified systolic (congestive) heart failure; Z86.711 Personal history of pulmonary embolism; Z85.47 Personal history of malignant neoplasm of testis

== ENCOUNTER 2021-05-17 08:44 | Inpatient (IN) ==
[2021-05-17] MEDS ORDERED: SODIUM CHLORIDE 0.9% 250 ML IV ONE (09:24)
--- NOTE | 2021-05-17 09:25 | Emergency Department Note ---
Impression & Plan Syncope, CAD, multiple vessel, Acute hyperkalemia, Acute hyponatremia ED Provider Note NAME: JOMAR HAAS III AGE: 70 SEX: M : 1950 ARRIVES VIA: Ambulance INFORMANT: Patient ED PROVIDER(S): Houston Zapata DO CHIEF COMPLAINT: Syncope HPI: Patient is a 70-year-old male who presents to the ER for syncope. He notes that he was recently admitted for 2 different MIs here at [facility]. He was transferred to [place] and was supposed to get a CABG but his heart was too weak. He was discharged yesterday. This morning he got up and he took his medications. He was not feeling well. He was sitting outside. He went back into the room and passed out. He woke up. He does not believe that he was confused when he woke up. He did not bite his tongue. He then started vomiting. He had no belly pain. After the vomiting ceased he then passed out again. He was brought in by EMS. He was given fluids and Zofran. He does feel better. He has some left shoulder pain but notes that he has been having shoulder issues. ROS: See above HPI for pertinent positives & negatives. A total of 10 systems reviewed and were otherwise negative. PAST MEDICAL HISTORY:See Below PAST SURGICAL HISTORY:See Below FAMILY HISTORY:See Below SOCIAL HISTORY:See Below HOME MEDICATIONS:See Below ALLERGIES:See Below VITALS:See Below PHYSICAL EXAMINATION: GENERAL: Sitting up in bed, alert, chronically ill-appearing, disheveled EYE EXAM: normal conjunctiva. PERRL and EOM's grossly intact. OROPHARYNX: no exudate, no erythema, lips, buccal mucosa, and tongue normal and mucous membranes are moist NECK: supple, no nuchal rigidity, no adenopathy, non-tender LUNGS: Clear to auscultation. Normal chest wall mechanics HEART: no murmurs, S1 normal and S2 normal ABDOMEN: abdomen soft, non-tender, normo-active bowel sounds, no masses, no rebound or guarding. UPPER EXTREMITIES: upper extremities are grossly normal. LOWER EXTREMITIES: No pitting edema. NEURO EXAM: Normal sensorium, cranial nerves II-XII grossly intact, normal speech, no gross weakness of arms, no gross weakness of legs. MEDICAL DECISION MAKING: Patient is a 70-year-old gentleman with severe CAD who recently presented to [facility] and was transferred to [place] for CABG but they declined him due to poor cardiac function. IV was established blood work was obtained today secondary to 2 episodes of syncope. Labs show no significant leukocytosis or anemia. INR was unremarkable. BMP with mild hyponatremia at 128 and hyperkalemia 5.2. LFTs bilirubin was unremarkable. Troponin was negative. Lipase was unremarkable. Covid was negative. Chest x-ray and CT of the abdomen pelvis was unremarkable. Patient was given IV fluids. He was updated bedside. With the syncope and severe CAD mild hypokalemia Case was discussed with hospitalist for further observation. Triage Nursing notes reviewed. Limited review of prior medical records performed Vital Signs: reviewed and remarkable for no significant abnormalities Differential diagnosis: Differential diagnosis includes etiologies such as vasovagal event, infection, hypoglycemia, electrolyte abnormalities, cardiac sources, intracerebral event, toxicologic, neurologic, as well as others were entertained. ER treatment provided: See below Diagnostics interpreted by me: ECG: Sinus tachycardia rate of 97 Left axis PVCs T wave inversion and ST depressions in lateral leads as well as inferior leads EKG is improved in the anterior leads Cardiac Monitoring: An order was placed for continuous cardiac monitoring. The monitor shows a rate of 98 with sinus rhythm. Laboratory studies: As stated above and show below. Imaging studies: CT abdomen pelvis is unremarkable Portable AP upright 1 view of the chest is unremarkable Consultation(s): Discussed with Jomar Borja for further evaluation Procedures: none Critical Care: None Past Med/Surg History Medical History Acute hyponatremia Allergic rhinitis Catheter-associated urinary tract infection Cauda equina syndrome Constipation Diabetes Dyslipidemia (high LDL; low HDL) GERD (gastroesophageal reflux disease) Gout Hx of testicular cancer Hypertension Hypothyroidism Lumbar disc herniation with radiculopathy Lumbar pain with radiation down both legs Spinal stenosis, lumbar region with neurogenic claudication Urinary retention Surgical History Hx of lumbosacral spine surgery Hx of total hip arthroplasty S/P orchiopexy 1975 Family History Father Lung cancer Cancer brain Mother Diabetes Uncle Prostate cancer Grandmother (Paternal) Stroke Family/Other Colorectal cancer Breast cancer Myocardial infarction Grandfather (Maternal) Rheumatoid arthritis Denies family history of Ovarian cancer Social History Smoking Status: Former smoker Tobacco Type: Cigarettes Age Quit Using Tobacco: 65; packs per day: 0.5; Years Smoked: 24; Cigarettes Per Day: just a few per week; Second Hand Exposure: No; Hx Alcohol Use: No Hx Substance Use: No Preferred Language: Telugu Communication Ability: Effective Visual Impairment: Limited Hearing Ability: Normal Decision Science Analyst Required: No Beliefs That Will Affect Care: None marital status: Current Living Situation: Spouse current occupational status: retired How many Children do You have: 2 How many Children do You have Comment: live local, children and able to help with care as needed. Feels Safe at Home: Yes Childhood Exposure to Second-Hand Smoke: No Diet Comment: eats what he wants to , has tried to start eating "healthier" caffeine: Yes during the past year weight has: decreased > 10 lbs Dental Care, Regularly: No Physical Activity Frequency: Other Physical Activity Frequency Comment: house chores Seatbelt Use: never Sunscreen Use: No Assistive Devices: Denture - Upper, Glasses, Walker and Wheelchair Allergies Allergies Allergy/AdvReac Type Severity Reaction Status Date / Time Penicillins Allergy Intermediate HIGH Verified 05/17/21 09:50 FEVER, RASH (NOTED ALLERGIC TO "ANY-CILLIN" bee pollen Allergy Unknown Unknown Verified 05/17/21 09:50 Home Meds Home Medications Medication Instructions Recorded Confirmed polyethylene glycol 3350 17 gram 17 g PO QAM PRN 02/01/21 05/17/21 oral powder packet (Miralax) apixaban 5 mg tablet 5 mg PO BID 02/28/21 05/17/21 gabapentin 300 mg capsule 300 mg PO AMPM cap 04/05/21 05/17/21 allopurinol 300 mg tablet 300 mg PO QAM 05/02/21 05/17/21 aspirin 81 mg tablet,delayed 81 mg PO QAM 05/02/21 05/17/21 release glimepiride 2 mg tablet 2 mg PO QAM 05/02/21 05/17/21 metoprolol succinate 100 mg 100 mg PO QAM 05/02/21 05/17/21 tablet,extended release 24 hr acetaminophen 500 mg tablet 1,000 mg PO Q6H PRN 05/17/21 05/17/21 (Tylenol Extra Strength) atorvastatin 80 mg tablet 80 mg PO QAM 05/17/21 05/17/21 cetirizine 10 mg tablet 10 mg PO QAM PRN 05/17/21 05/17/21 docusate sodium 100 mg capsule 200 mg PO PM 05/17/21 05/17/21 furosemide 40 mg tablet 40 mg PO QAM 05/17/21 05/17/21 isosorbide mononitrate 30 mg 30 mg PO QAM 05/17/21 05/17/21 tablet,extended release 24 hr levothyroxine 100 mcg tablet 100 mcg PO DAILYBB 05/17/21 05/17/21 Previous Rx's Medication Instructions Recorded metformin 1,000 mg tablet 1,000 mg PO BID #180 tab 01/10/21 diaper,brief,adult,disposable #126 ea 03/07/21 Roho Cushion #1 ea 03/17/21 nitroglycerin 0.4 mg sublingual 0.4 mg SUBLINGUAL ONCE #10 tab 04/28/21 tablet Mattress (Air or other) #1 ea 05/03/21 famotidine 40 mg tablet 40 mg PO HS #90 tab 05/12/21 Results & Data (ED) Vital Signs Vital Signs - 24 hr 05/17/21 08:57 05/17/21 09:17 05/17/21 10:33 Temperature 36.8 C Temperature Source Oral Pulse Rate 97 H Pulse Rate [Apical] 91 H Pulse Rate from SpO2 Sensor Respiratory Rate 18 18 Blood Pressure 140/75 Blood Pressure [Left Arm] 140/85 Blood Pressure Mean 96 Blood Pressure Mean [Left Arm] 103 Pulse Oximetry 97 97 97 Oxygen Delivery Method Room Air Room Air Sepsis Recent Fever Within 48 Hours No Sepsis New/Unexplained Change in Mental Status No Sepsis Action Taken by Nursing No Action Required 05/17/21 11:34 05/17/21 12:00 05/17/21 12:30 Temperature Temperature Source Pulse Rate 86 83 82 Pulse Rate [Apical] Pulse Rate from SpO2 Sensor 86 83 82 Respiratory Rate 16 21 15 Blood Pressure 139/82 125/79 125/85 Blood Pressure [Left Arm] Blood Pressure Mean 101 94 98 Blood Pressure Mean [Left Arm] Pulse Oximetry 95 97 99 Oxygen Delivery Method Room Air Room Air Room Air Sepsis Recent Fever Within 48 Hours Sepsis New/Unexplained Change in Mental Status Sepsis Action Taken by Nursing 05/17/21 13:00 05/17/21 13:30 05/17/21 14:00 Temperature Temperature Source Pulse Rate 84 80 78 Pulse Rate [Apical] Pulse Rate from SpO2 Sensor 84 81 78 Respiratory Rate 19 18 16 Blood Pressure 128/81 132/82 123/84 Blood Pressure [Left Arm] Blood Pressure Mean 96 98 97 Blood Pressure Mean [Left Arm] Pulse Oximetry 96 97 97 Oxygen Delivery Method Room Air Room Air Room Air Sepsis Recent Fever Within 48 Hours Sepsis New/Unexplained Change in Mental Status Sepsis Action Taken by Nursing Laboratory Data Result diagrams: 05/17/21 09:15 05/17/21 10:34 Lab Results 05/17/21 05/17/21 05/17/21 Range/Units 09:15 09:15 09:15 WBC 8.82 (4.8-10.8) K/uL RBC 4.35 L (4.7-6.1) M/uL Hgb 13.5 L (14.0-18.0) g/dL Hct 37.6 L (42-52) % MCV 86.4 (80-100) fL MCH 31.0 (25-34) pg MCHC 35.9 (32-36) g/dL RDW Std Deviation 42.6 (36.4-46.3) fL RDW Coeff of Radha 13.3 (11.5-14.5) % Plt Count 230 (130-400) K/uL MPV 11.1 H (7.4-10.4) fL Immature Gran % (Auto) 0.1 % Neut % (Auto) 73.6 % Lymph % (Auto) 15.8 % Frio % (Auto) 9.0 % Eos % (Auto) 0.9 % Baso % (Auto) 0.6 % Neut # (Auto) 6.50 (1.4-6.5) K/uL Lymph # (Auto) 1.39 (1.2-3.4) K/uL Frio # (Auto) 0.79 H (0.11-0.59) K/uL Eos # (Auto) 0.08 (0-0.5) K/uL Baso # (Auto) 0.05 (0-0.2) K/uL Immature Gran # (Auto) 0.01 (0.00-0.02) K/uL PT (9.0-12.0) Seconds INR (0.9-1.1) APTT Cancelled PTT Ratio Cancelled Sodium Cancelled Potassium Cancelled Chloride Cancelled Carbon Dioxide Cancelled Anion Gap Cancelled BUN Cancelled Creatinine Cancelled Est Cr Clr Drug Dosing Cancelled Est GFR ( Amer) Cancelled Est GFR (Non-Af Amer) Cancelled BUN/Creatinine Ratio Cancelled Glucose Cancelled Calcium Cancelled Total Bilirubin Cancelled AST Cancelled ALT Cancelled Alkaline Phosphatase Cancelled Troponin I Cancelled Total Protein Cancelled Albumin Cancelled Globulin Cancelled Albumin/Globulin Ratio Cancelled Lipase Cancelled COVID-19 Eval Order SARS-CoV-2 (PCR) (Negative) 05/17/21 05/17/21 05/17/21 Range/Units 10:34 10:34 10:35 WBC (4.8-10.8) K/uL RBC (4.7-6.1) M/uL Hgb (14.0-18.0) g/dL Hct (42-52) % MCV (80-100) fL MCH (25-34) pg MCHC (32-36) g/dL RDW Std Deviation (36.4-46.3) fL RDW Coeff of Radha (11.5-14.5) % Plt Count (130-400) K/uL MPV (7.4-10.4) fL Immature Gran % (Auto) % Neut % (Auto) % Lymph % (Auto) % Frio % (Auto) % Eos % (Auto) % Baso % (Auto) % Neut # (Auto) (1.4-6.5) K/uL Lymph # (Auto) (1.2-3.4) K/uL Frio # (Auto) (0.11-0.59) K/uL Eos # (Auto) (0-0.5) K/uL Baso # (Auto) (0-0.2) K/uL Immature Gran # (Auto) (0.00-0.02) K/uL PT 10.7 (9.0-12.0) Seconds INR 1.1 (0.9-1.1) APTT 24.3 PTT Ratio 0.9 Sodium 128 L Potassium 5.2 H Chloride 91 L Carbon Dioxide 29 Anion Gap 9.0 BUN 28 H Creatinine 1.24 Est Cr Clr Drug Dosing 68.8 Est GFR ( Amer) 68.3 Est GFR (Non-Af Amer) 58.9 BUN/Creatinine Ratio 22.3 H Glucose 230 H Calcium 9.8 Total Bilirubin 0.5 AST 10 L ALT 24 Alkaline Phosphatase 109 Troponin I < 0.015 Total Protein 7.8 Albumin 3.5 Globulin 4.3 H Albumin/Globulin Ratio 0.8 L Lipase 75 COVID-19 Eval Order Covid19 at [facility] SARS-CoV-2 (PCR) (Negative) 05/17/21 Range/Units 10:35 WBC (4.8-10.8) K/uL RBC (4.7-6.1) M/uL Hgb (14.0-18.0) g/dL Hct (42-52) % MCV (80-100) fL MCH (25-34) pg MCHC (32-36) g/dL RDW Std Deviation (36.4-46.3) fL RDW Coeff of Radha (11.5-14.5) % Plt Count (130-400) K/uL MPV (7.4-10.4) fL Immature Gran % (Auto) % Neut % (Auto) % Lymph % (Auto) % Frio % (Auto) % Eos % (Auto) % Baso % (Auto) % Neut # (Auto) (1.4-6.5) K/uL Lymph # (Auto) (1.2-3.4) K/uL Frio # (Auto) (0.11-0.59) K/uL Eos # (Auto) (0-0.5) K/uL Baso # (Auto) (0-0.2) K/uL Immature Gran # (Auto) (0.00-0.02) K/uL PT (9.0-12.0) Seconds INR (0.9-1.1) APTT PTT Ratio Sodium Potassium Chloride Carbon Dioxide Anion Gap BUN Creatinine Est Cr Clr Drug Dosing Est GFR ( Amer) Est GFR (Non-Af Amer) BUN/Creatinine Ratio Glucose Calcium Total Bilirubin AST ALT Alkaline Phosphatase Troponin I Total Protein Albumin Globulin Albumin/Globulin Ratio Lipase COVID-19 Eval Order SARS-CoV-2 (PCR) NEGATIVE (Negative) Administered Medications Discontinued Medications Sodium Chloride (Nss) 250 mls @ 999 mls/hr IV .Q16M ONE Stop: 05/17/21 09:39 Last Infusion: 05/17/21 10:57 Dose: 0 mls/hr Documented by: [id number] Admin: 05/17/21 10:38 Dose: 999 mls/hr Documented by: [id number] Imaging Data Radiologist's Impression: Chest X-Ray 05/17/21 09:14 XR chest 1V portable HISTORY: Atypical Chest Pain COMPARISON: Chest 05/02/2021. FINDINGS: The lungs are clear. Cardiac silhouette is normal in size. No pleural effusions. No pneumothorax. IMPRESSION: No acute process. ACT 112: Negative or not required by law. Electronically signed by: Kristopher Cohen M.D. 05/17/2021 10:04 AM Abdomen/Pelvis CT 05/17/21 09:25 CT SCAN OF THE ABDOMEN AND PELVIS WITHOUT IV CONTRAST CLINICAL HISTORY: Generalized abdominal pain. COMPARISON STUDY: Abdominal CT dated 04/24/2021. TECHNIQUE: CT scan of the abdomen and pelvis is performed from the lung bases to the proximal femora. Images are reviewed in the axial, sagittal, and coronal planes. IV contrast was not administered for this examination. Note that the examination was performed in suboptimal fashion without IV contrast. A dose lowering technique was utilized adhering to the principles of ALARA. CT DOSE: 644.09 mGy.cm FINDINGS: Lung bases: The heart is top normal in size and without pericardial effusion. The coronary arteries are densely calcified. The lung bases are clear noting bibasilar scarring/atelectasis. Liver: The unenhanced liver is enlarged, measuring 20.1 cm in length. The liver is otherwise normal in contour and attenuation. There is no intrahepatic biliary ductal dilatation. Gallbladder: Unremarkable. Spleen: Normal in size and attenuation. Pancreas: Unremarkable. Adrenal glands: Unremarkable. Kidneys: The unenhanced kidneys are normal in size and without hydronephrosis. There are no renal calculi identified. There is no evidence of contour deforming renal mass lesion. Abdominal vasculature: The abdominal aorta is normal in course and caliber noting advanced atherosclerotic calcification. Bowel: There is rectosigmoid fecal retention and moderate to severe constipation. No bowel obstruction is identified. Rectal wall thickening is again suggested. The appendix is well-visualized and normal. Peritoneum: There is no intraperitoneal free air or abdominal ascites. There is a fat-containing umbilical hernia. Lymphadenopathy: None. Pelvic viscera: Evaluation of the pelvis is degraded by streak artifact from bilateral hip arthroplasties. The prostate gland is enlarged but not well visualized due to streak artifact. Circumferential bladder wall thickening is again noted. Postoperative change is noted in the right groin. Skeletal structures: The skeletal structures are osteopenic. There is lumbosacral spondylosis with postoperative change from L4-L5 spinal fusion. No lytic or blastic lesions are seen. Bilateral hip arthroplasties are in place. IMPRESSION: 1. There is rectosigmoid fecal retention and moderate to severe constipation. 2. No bowel obstruction is identified. 3. Rectal wall thickening is again suggested. This could be further assessed with endoscopy if clinically warranted. 4. Circumferential bladder wall thickening is again noted. Correlate with clinical findings and urinalysis. 5. Mild hepatomegaly 6. Additional findings as above. ACT 112: Negative or not required by law. Electronically signed by: Morris Coburn M.D. 05/17/2021 10:08 AM Discharge Plan Visit Data Chief Complaint: Syncope Stated Complaint: cardiac assessment ED Provider: Houston Zapata Discharge Problem: Syncope, CAD, multiple vessel, Acute hyperkalemia, Acute hyponatremia Patient Disposition: Admitted As Inpatient Discharge Instructions Interventions: ED Discharge Assessment Last Done: 05/17/21 15:15 Discharge Problem: Syncope Qualifiers: Syncope type: unspecified Qualified Code(s): R55 - Syncope and collapse
[2021-05-17 09:26] LABS: Basophils # (auto) 0.05 K/uL (0-0.2); Basophils % (auto) 0.6 %; Eosinophils # (auto) 0.08 K/uL (0-0.5); Eosinophils % (auto) 0.9 %; Hematocrit (blood only) 37.6 % (42-52); Hemoglobin 13.5 g/dL (14.0-18.0); Immature Granulocytes # (auto) 0.01 K/uL (0.00-0.02); Immature Granulocytes % (auto) 0.1 %; Lymphocytes # (auto) 1.39 K/uL (1.2-3.4); Lymphocytes % (auto) 15.8 %; Mean Corpuscular Hgb Conc 35.9 g/dL (32-36); Mean Corpuscular Volume 86.4 fL (80-100); Mean Platelet Volume 11.1 fL (7.4-10.4); Monocytes # (auto) 0.79 K/uL (0.11-0.59); Neutrophils % (auto) 73.6 %; Platelet Count 230 K/uL (130-400); RDW Coefficient of Variation 13.3 % (11.5-14.5); RDW Standard Deviation 42.6 fL (36.4-46.3); Red Blood Count 4.35 M/uL (4.7-6.1); White Blood Count 8.82 K/uL (4.8-10.8)
--- NOTE | 2021-05-17 10:05 | XRay Report ---
XR chest 1V portable HISTORY: Atypical Chest Pain COMPARISON: Chest 05/02/2021. FINDINGS: The lungs are clear. Cardiac silhouette is normal in size. No pleural effusions. No pneumot horax. IMPRESSION: No acute process. ACT 112: Negative or not required by law. Electronically signed by: Kristopher Cohen M.D. 05/17/2021 10:04 AM
--- NOTE | 2021-05-17 10:09 | CT Scan Report ---
CT SCAN OF THE ABDOMEN AND PELVIS WITHOUT IV CONTRAST CLINICAL HISTORY: Generalized abdominal pain. COMPARISON STUDY: Abdominal CT dated 04/24/2021. TECHNIQUE: CT scan of the abdomen and pelvis is performed from the lung bases to the proximal femora. Images are reviewed in the axial, sagittal, and coronal planes. IV contrast was not administered for this examination. Note that the examination was performed in suboptimal fashion without IV contrast. A dose lowering technique was utilized adhering to the principles of ALARA. CT DOSE: 644.09 mGy.cm FINDINGS: Lung bases: The heart is top normal in size and without pericardial effusion. The coronary arteries a re densely calcified. The lung bases are clear noting bibasilar scarring/atelectasis. Liver: The unenhanced liver is enlarged, measuring 20.1 cm in length. The liver is otherwise normal i n contour and attenuation. There is no intrahepatic biliary ductal dilatation. Gallbladder: Unremarkable. Spleen: Normal in size and attenuation. Pancreas: Unremarkable. Adrenal glands: Unremarkable. Kidneys: The unenhanced kidneys are normal in size and without hydronephrosis. There are no renal cuba culi identified. There is no evidence of contour deforming renal mass lesion. Abdominal vasculature: The abdominal aorta is normal in course and caliber noting advanced atheroscle rotic calcification. Bowel: There is rectosigmoid fecal retention and moderate to severe constipation. No bowel obstructio n is identified. Rectal wall thickening is again suggested. The appendix is well-visualized and norm al. Peritoneum: There is no intraperitoneal free air or abdominal ascites. There is a fat-containing umbi lical hernia. Lymphadenopathy: None. Pelvic viscera: Evaluation of the pelvis is degraded by streak artifact from bilateral hip arthroplas ties. The prostate gland is enlarged but not well visualized due to streak artifact. Circumferential bladder wall thickening is again noted. Postoperative change is noted in the right groin. Skeletal structures: The skeletal structures are osteopenic. There is lumbosacral spondylosis with po stoperative change from L4-L5 spinal fusion. No lytic or blastic lesions are seen. Bilateral hip arth roplasties are in place. IMPRESSION: 1. There is rectosigmoid fecal retention and moderate to severe constipation. 2. No bowel obstruction is identified. 3. Rectal wall thickening is again suggested. This could be further assessed with endoscopy if clinic ally warranted. 4. Circumferential bladder wall thickening is again noted. Correlate with clinical findings and urina lysis. 5. Mild hepatomegaly 6. Additional findings as above. ACT 112: Negative or not required by law. Electronically signed by: Morris Coburn M.D. 05/17/2021 10:08 AM
[2021-05-17 10:58] LABS: INR 1.1 (0.9-1.1); Partial Thromboplastin Ratio 0.9; Partial Thromboplastin Time 24.3 Seconds (21.0-31.0); Prothrombin Time 10.7 Seconds (9.0-12.0)
[2021-05-17 11:04] LABS: Alanine Aminotransferase 24 U/L (12-78); Albumin Level 3.5 gm/dl (3.4-5.0); Aspartate Aminotransferase 10 U/L (15-37); BUN Creatinine Ratio 22.3 (10-20); Blood Urea Nitrogen 28 mg/dl (7-18); Calcium 9.8 mg/dl (8.5-10.1); Carbon Dioxide 29 mmol/L (21-32); Chloride 91 mmol/L (98-107); Creatinine Clr Calc Pharmacy 68.8 ml/min; Est GFR (African American) 68.3 ml/min; Est GFR (Non-African American) 58.9 ml/min; Glucose 230 mg/dl (70-99); Lipase 75 U/L (73-393); Potassium 5.2 mmol/L (3.5-5.1); Sodium 128 mmol/L (136-145)
[2021-05-17 11:09] LABS: Albumin Globulin Ratio 0.8 (0.9-2); Alkaline Phosphatase 109 U/L (45-117); Bilirubin,Total 0.5 mg/dl (0.2-1); Globulin 4.3 gm/dl (2.5-4.0); Total Protein 7.8 gm/dl (6.4-8.2); Troponin I < 0.015 ng/ml (0-0.045)
--- NOTE | 2021-05-17 13:30 | History & Physical Report ---
Date of Service May 17, 2021 Assessment & Plan (1) Syncope: Plan: This appears to be related to hypovolemia compounded by taking all his medications this morning - decrease intake since leaving hospital- evident with hyponatremia, hypochloridemia - cold and clammy followed by passing out - Will trend ECG and Troponin I - currently does not appear cardiac related - monitor on telemetry - may need to space out his BP medications - Oral resuscitation for now- he received 250 ml of 0.9% saline in the EMD (2) Hyponatremia: Plan: As above - oral resuscitation - if Euvolemic in the morning can continue with his lasix - If continues to lower will free water restrict (3) CAD (coronary artery disease): Plan: Continue trending troponin and ECG as above- no dynamic changes - Continue metoprolol succ 100mg q24 - Continue ISMN 30 daily- new medication added- follow hemodynamic response has been on for 2 days - Continue Atorvastatin 80 mg - Continue ASA - Continue glucose control as well Patient mavislly consented to CABG surgery but changed his mind and was discharged as per HPI. Cardiac cath- 04/28/21 Coronary angiography: 1. Left main coronary artery: LMCA is large in caliber. Distal LMCA 90% stenosis involving ostium of LAD and circumflex. 2. Left anterior descending: LAD is a large-caliber vessel that extends to the apex. Ostial LAD 80%. Mid LAD 50 to 70%. Medium caliber D1. Medium to large caliber D2 with ostial/proximal 70 to 80%. 3. Circumflex: Large and Co-dominant. Ostial circumflex 70%. Mid circumflex 40%. Distal circumflex 70%. Large OM1 ostial/proximal 50% and mid 90 to 95% involving smaller branch. Circumflex posterior lateral branch proximal 50%. PDA without significant CAD. 4. Right coronary artery: Codominant. Diffuse severe CAD. Proximal RCA 90%. Early mid RCA 80 to 90%. Distal RCA 90-95% diffuse CAD. Very small PL. Small PDA without significant CAD. Left to right collaterals. Left heart catheterization: 1. Left ventriculography was not performed. 2. Moderately elevated LVEDP; 18 mmHg. 3. No aortic stenosis. Peak to peak gradient across the aortic valve was 0. (4) Cardiomyopathy: Plan: Last previous ECHO with EF 35-45% - Severe hypokinesis of the mid to distal inferior wall - RSVP 26 - Continue therapy as above (5) Hypothyroidism: Plan: Continue Synthroid 100 mcg daily (6) Diabetes: Plan: Aspart sliding scale goal <180 CF: 20 Ratio 1:15 follow (7) Pulmonary embolus: Plan: DX in February 10- continue Apixaban (8) Lumbar stenosis: Plan: With neurogenic claudication and cauda equina syndrome - OT/PT consult assistance - physical rehab limited by his cardiac disease - straight cath QID with bladder scans - Continue with gabapentin History of Present Illness Primary Care Provider: Liz Kirby, DO 70 YOM with past medical history: of CAD, CHF, cauda equina syndrome secondary to spinal stenosis, pressure ulcer on buttocks, DM, PE, testicular cancer. [place] [facility] [place] evaluation of 3V CABG surgery for his CAD and NSTEMI. With his reduced EF he was likely going to need mechanical support following the surgery. The patient eventually declined the surgical intervention risks. The patient had his medications adjusted to include addition of ISMN, discontinuation of his Lisinopril, and increasing of his atorvastatin, he was discharged yesterday and came home. He was tired when he got home so didn't eat much dinner and just went to bed. Got up this morning feeling decently well, had breakfast and took his medications. He then went and sat on the porch ~ 30 min after breakfast. He started to not feel well with feeling tired, dizzy and diaphoretic so he called his daughter to get up and go inside. He got up with the wheel-chair and made it to the door before he passed out, when he got up he was nauseated and had an episode of vomiting. The daughter does endorse that he was very diaphoretic-cold and clammy. The patient got up and then proceeded to take 2 of his nitroglycerin tablets, because he was instructed if he had any incidence of nausea, vomiting, chest pain, or feeling unwell to take ASA and NTG. The first NTG made the patient more nauseated and he threw up again. He then took another nitroglycerin and felt better. In the EMD he had a CXR, ECG, and routine labs to include a cardiac profile. Troponin I is negative and ECG has no dynamic changes. CXR is negative for acute process and CT scan of the abdomen and pelvis is negative as well. Patient will be admitted for gentle resuscitation, orally and following his ECG and troponin, adjustment of BP medications as needed. For his history of stage III pressure ulcer, this is healing well surrounding tissues are blanchable and areas to both buttocks are small. Will continue with cleansing daily and Optifoam covering. Continue with offloading. Nursing wound care will be placed. Patient had his COVID vaccines and his COVID test is NEGATIVE on admission. Allergies Allergy/AdvReac Type Severity Reaction Status Date / Time Penicillins Allergy Intermediate HIGH Verified 05/17/21 09:50 FEVER, RASH (NOTED ALLERGIC TO "ANY-CILLIN" bee pollen Allergy Unknown Unknown Verified 05/17/21 09:50 Home Medications Medication Instructions Recorded Confirmed Type metformin 1,000 mg tablet 1,000 mg PO BID #180 tab 01/10/21 05/17/21 Rx polyethylene glycol 3350 17 gram 17 g PO QAM PRN 02/01/21 05/17/21 History oral powder packet (Miralax) apixaban 5 mg tablet 5 mg PO BID 02/28/21 05/17/21 History diaper,brief,adult,disposable #126 ea 03/07/21 05/02/21 Rx Roho Cushion #1 ea 03/17/21 05/02/21 Rx gabapentin 300 mg capsule 300 mg PO AMPM cap 04/05/21 05/17/21 History nitroglycerin 0.4 mg sublingual 0.4 mg SUBLINGUAL ONCE #10 tab 04/28/21 05/17/21 Rx tablet allopurinol 300 mg tablet 300 mg PO QAM 05/02/21 05/17/21 History aspirin 81 mg tablet,delayed 81 mg PO QAM 05/02/21 05/17/21 History release glimepiride 2 mg tablet 2 mg PO QAM 05/02/21 05/17/21 History metoprolol succinate 100 mg 100 mg PO QAM 05/02/21 05/17/21 History tablet,extended release 24 hr Mattress (Air or other) #1 ea 05/03/21 Rx famotidine 40 mg tablet 40 mg PO HS #90 tab 05/12/21 05/17/21 Rx acetaminophen 500 mg tablet 1,000 mg PO Q6H PRN 05/17/21 05/17/21 History (Tylenol Extra Strength) atorvastatin 80 mg tablet 80 mg PO QAM 05/17/21 05/17/21 History cetirizine 10 mg tablet 10 mg PO QAM PRN 05/17/21 05/17/21 History docusate sodium 100 mg capsule 200 mg PO PM 05/17/21 05/17/21 History furosemide 40 mg tablet 40 mg PO QAM 05/17/21 05/17/21 History isosorbide mononitrate 30 mg 30 mg PO QAM 05/17/21 05/17/21 History tablet,extended release 24 hr levothyroxine 100 mcg tablet 100 mcg PO DAILYBB 05/17/21 05/17/21 History Past Med/Surg History Medical History Acute hyponatremia Allergic rhinitis Catheter-associated urinary tract infection Cauda equina syndrome Constipation Diabetes Dyslipidemia (high LDL; low HDL) GERD (gastroesophageal reflux disease) Gout Hx of testicular cancer Hypertension Hypothyroidism Lumbar disc herniation with radiculopathy Lumbar pain with radiation down both legs Spinal stenosis, lumbar region with neurogenic claudication Urinary retention Surgical History Hx of lumbosacral spine surgery Hx of total hip arthroplasty S/P orchiopexy 1975 Family History Father Lung cancer Cancer brain Mother Diabetes Uncle Prostate cancer Grandmother (Paternal) Stroke Family/Other Colorectal cancer Breast cancer Myocardial infarction Grandfather (Maternal) Rheumatoid arthritis Denies family history of Ovarian cancer Social History Smoking Status: Never smoker Tobacco Type: Cigarettes Age Quit Using Tobacco: 65; packs per day: 0.5; Years Smoked: 24; Cigarettes Per Day: just a few per week; Second Hand Exposure: No; Hx Alcohol Use: No Hx Substance Use: No Preferred Language: Kazakh Communication Ability: Effective Visual Impairment: Limited Hearing Ability: Normal Pattern Maker Required: No Beliefs That Will Affect Care: None marital status: Current Living Situation: Spouse current occupational status: retired How many Children do You have: 2 How many Children do You have Comment: live local, children and able to help with care as needed. Other Information That Helps Us Care for You: No Feels Safe at Home: Yes Safety Concerns: Feels Safe At This Time Childhood Exposure to Second-Hand Smoke: No Diet Comment: eats what he wants to , has tried to start eating "healthier" caffeine: Yes during the past year weight has: decreased > 10 lbs Dental Care, Regularly: No Physical Activity Frequency: Other Physical Activity Frequency Comment: house chores Seatbelt Use: never Sunscreen Use: No Assistive Devices: Denture - Upper, Glasses, Walker and Wheelchair Review of Systems Review of Systems: REVIEW OF SYSTEMS: Constitutional: No fever, sweats or chills Eyes: No diplopia, no worsening or blurred vision ENT: normal hearing, no trouble swallowing Respiratory: No cough, sputum, dyspnea at rest or on exertion Cardiovascular: (+) dizziness, passing out, No chest pain, tightness or palpitations Abdomen: (+) n/v, No diarrhea or constipation Musculoskeletal: No joint pain, calf pain, swelling Neurologic: (+) bilateral lower extremity weakness, balance problems, foot drop Psychiatric: No anxiety or depression Skin: (+) pressure ulceration to buttocks Physical Exam Physical Exam: PHYSICAL EXAM: General: awake, alert, no apparent distress Head: Normocephalic, atraumatic ENT: PERRL, EOMI, no pharyngeal exudate, mucous membranes moist Neuro: AAO x 3, speech clear and appropriate, strength intact bilaterally 5/5, sensation intact and equal all extremities and dermatomes, no pronator drift, bilateral lower extrmeity foot drop, decrease coordination lower extremities Chest: equal rise and fall of the chest, no accessory muscle use, no heaves or thrills, Clear to auscultation, on room air, Cardiac: Regular rate and rhythm, telemetry reviewed-NSR, skin warm dry, cap refill <3 seconds, peripheral pulses +2 no JVD, no murmur, trace lower extremity edema GI: NABS x 4 quadrants, soft, nontender to palpation, no rebound, guarding or tenderness : Spontaneously voiding, no pain, no CVA tenderness, Extremities: Normal inspection, no peripheral edema or erythema, calfs nontender to palpation Psych: Normal mood and affect Skin: well healing pressure ulcerations to buttocks, covered with optifoam Results & Data Results & Data ([facility]) Vital Signs (Past 12 Hours) Vital Signs Temp Pulse Pulse Resp BP BP Pulse Ox 05/17/21 12:30 82 15 125/85 99 05/17/21 12:00 83 21 125/79 97 05/17/21 11:34 86 16 139/82 95 05/17/21 10:33 91 H 18 140/85 97 05/17/21 09:17 97 05/17/21 08:57 36.8 C 97 H 18 140/75 97 Laboratory Results Abnormal lab results 05/17/21 05/17/21 Range/Units 09:15 10:34 RBC 4.35 L (4.7-6.1) M/uL Hgb 13.5 L (14.0-18.0) g/dL Hct 37.6 L (42-52) % MPV 11.1 H (7.4-10.4) fL [place] # (Auto) 0.79 H (0.11-0.59) K/uL Sodium 128 L (136-145) mmol/L Potassium 5.2 H (3.5-5.1) mmol/L Chloride 91 L (98-107) mmol/L BUN 28 H (7-18) mg/dl BUN/Creatinine Ratio 22.3 H (10-20) Glucose 230 H (70-99) mg/dl AST 10 L (15-37) U/L Globulin 4.3 H (2.5-4.0) gm/dl Albumin/Globulin Ratio 0.8 L (0.9-2) Diagnostic Findings Chest X-Ray 05/17/21 09:14 XR chest 1V portable HISTORY: Atypical Chest Pain COMPARISON: Chest 05/02/2021. FINDINGS: The lungs are clear. Cardiac silhouette is normal in size. No pleural effusions. No pneumothorax. IMPRESSION: No acute process. ACT 112: Negative or not required by law. Electronically signed by: Kristopher Cohen M.D. 05/17/2021 10:04 AM Abdomen/Pelvis CT 05/17/21 09:25 CT SCAN OF THE ABDOMEN AND PELVIS WITHOUT IV CONTRAST CLINICAL HISTORY: Generalized abdominal pain. COMPARISON STUDY: Abdominal CT dated 04/24/2021. TECHNIQUE: CT scan of the abdomen and pelvis is performed from the lung bases to the proximal femora. Images are reviewed in the axial, sagittal, and coronal planes. IV contrast was not administered for this examination. Note that the examination was performed in suboptimal fashion without IV contrast. A dose lowering technique was utilized adhering to the principles of ALARA. CT DOSE: 644.09 mGy.cm FINDINGS: Lung bases: The heart is top normal in size and without pericardial effusion. The coronary arteries are densely calcified. The lung bases are clear noting bibasilar scarring/atelectasis. Liver: The unenhanced liver is enlarged, measuring 20.1 cm in length. The liver is otherwise normal in contour and attenuation. There is no intrahepatic biliary ductal dilatation. Gallbladder: Unremarkable. Spleen: Normal in size and attenuation. Pancreas: Unremarkable. Adrenal glands: Unremarkable. Kidneys: The unenhanced kidneys are normal in size and without hydronephrosis. There are no renal calculi identified. There is no evidence of contour deforming renal mass lesion. Abdominal vasculature: The abdominal aorta is normal in course and caliber noting advanced atherosclerotic calcification. Bowel: There is rectosigmoid fecal retention and moderate to severe constipation. No bowel obstruction is identified. Rectal wall thickening is again suggested. The appendix is well-visualized and normal. Peritoneum: There is no intraperitoneal free air or abdominal ascites. There is a fat-containing umbilical hernia. Lymphadenopathy: None. Pelvic viscera: Evaluation of the pelvis is degraded by streak artifact from bilateral hip arthroplasties. The prostate gland is enlarged but not well visualized due to streak artifact. Circumferential bladder wall thickening is again noted. Postoperative change is noted in the right groin. Skeletal structures: The skeletal structures are osteopenic. There is lumbosacral spondylosis with postoperative change from L4-L5 spinal fusion. No lytic or blastic lesions are seen. Bilateral hip arthroplasties are in place. IMPRESSION: 1. There is rectosigmoid fecal retention and moderate to severe constipation. 2. No bowel obstruction is identified. 3. Rectal wall thickening is again suggested. This could be further assessed with endoscopy if clinically warranted. 4. Circumferential bladder wall thickening is again noted. Correlate with clinical findings and urinalysis. 5. Mild hepatomegaly 6. Additional findings as above. ACT 112: Negative or not required by law. Electronically signed by: Morris Coburn M.D. 05/17/2021 10:08 AM Medications Administered Discontinued Medications Sodium Chloride (Nss) 250 mls @ 999 mls/hr IV .Q16M ONE Stop: 05/17/21 09:39 Last Infusion: 05/17/21 10:57 Dose: 0 mls/hr Documented by: [id number] Admin: 05/17/21 10:38 Dose: 999 mls/hr Documented by: [id number] ECG Additional Comments: Sinus rhythm with occasional Premature ventricular complexes T wave abnormality, consider inferolateral ischemia Abnormal ECG When compared with ECG of 02-MAY-2021 19:29, Premature ventricular complexes are now Present Code Status & VTE Plan Code Status CODE: FULL VTE: SCD's, apixaban Supervising Physician Co-Signing Physician Notes Pt seen/examined following RADHA Luciano. Orders and plan of admission formulated with RADHA. 70 y/o M Hx HTN, HLD, DM II, spinal stenosis - wheelchair bound, chroic stage III decub ulcer, PE, systolic CHF, CAD - [place] [facility] [place] which he eventually declined. He is being managed medically. He had changes to his medication including addition of Imdur. He is instructed to take NTG SL for nausea and vomiting as this is considered an anginal equivalent. He was at home when he developed some dizziness and nausea and had a near syncopal episode. He then started vomiting, took NTG and suffered a syncopal episode. He is asymptomatic on arrival to the ER. Labs are notable for mild hyponatremia and hyperkalemia. OE: General: AAO x 3, no distress ENT: No erythema or exudates, no thrush Eyes: ANDIE, EOMI Head and neck: Normocephalic, atraumatic, No JVD, neck is supple. Chest/heart: Nontender, S1,2, RRR, no murmurs, no gallops Lungs: CTAB, no wheezing or crackles Abdomen: Nontender, nondistended, BS+ Neuro: AAO x 3, speech is clear, no unilateral weakness or loss of sensation, coordination intact Musculoskeletal: No joint inflammation, muscle tenderness, FROM Skin: Stage III ulcer Extremities: No clubbing, cyanosis, edema P: 1) Near-syncope/syncope - unclear if this is purely orthostatic or related to any arrhythmias, although the former is more likely. The pt is assigned to telemetry for overnight observation on a monitor. 2) CHF - he is clinically dry and was provided with IVF - we will reassess volume status AM. Resume Lasix AM, cont metoprolol 3) CAD - no evidence of ACS. ASA, Imdur, statin, anticoagulated with Eliquis owing to a PE. 4) PE - Eliquis 5) Pressure ulcer is stable and does not appear acutely infected 6) DM - SS Full code - anticoagulated Total time for this admit including review of labs, meds, imaging, EKG, records - discussion with pt and ER attending - 55 min PG Care Time/CCT Total # of Minutes Spent Total Time Spent with Patient: Total time spent is greater than 50% in coordination of care (as documented) at patient's floor/unit and/or counseling patient: Coding Level of Care Code 20979 Initial Inpt Care Lvl 3 Diagnoses Syncope R55 Hyponatremia E87.1 CAD (coronary artery disease) I25.10 Associated angina: unspecified whether angina present Coronary Disease-Associated Artery/Lesion type: [place] artery [place] vs. transplanted heart: unspecified whether [place] or transplanted heart Cardiomyopathy I42.9 Hypothyroidism E03.9 Hypothyroidism type: unspecified Diabetes E11.9 Pulmonary embolus I26.99 Lumbar stenosis M48.061 (1) CAD (coronary artery disease) Associated angina: unspecified whether angina present Coronary Disease- Associated Artery/Lesion type: [place] artery [place] vs. transplanted heart: unspecified whether [place] or transplanted heart Qualified Code(s): I25.10 - Atherosclerotic heart disease of [place] coronary artery without angina pectoris (2) Hypothyroidism Hypothyroidism type: unspecified Qualified Code(s): E03.9 - Hypothyroidism, unspecified
[2021-05-17] MEDS ORDERED: DEXTROSE 50% 50 ML SYRINGE IV PRN (16:03)
[2021-05-17] MEDS ORDERED: NITROGLYCERIN SL 0.4 MG/TAB TAB SL PRN (16:03)
[2021-05-17] MEDS ORDERED: GLUCOSE 10 TABS/TUBE PO PRN (16:03)
[2021-05-17] MEDS ORDERED: GLUCAGON FOR INJ 1 MG VIAL SQ PRN (16:03)
[2021-05-17] MEDS ORDERED: ONDANSETRON INJ 2 MG/ML 2 ML VIAL IV PRN (16:03)
[2021-05-17] MEDS ORDERED: GLUCOSE 40% GEL 15 GM TUBE PO PRN (16:03)
[2021-05-17] MEDS ORDERED: CARBOHYDRATES FOR HYPOGLYCEMIA PO PRN (16:03)
[2021-05-17] MEDS ORDERED: ACETAMINOPHEN 500 MG TAB PO PRN (16:17)
[2021-05-17] MEDS ORDERED: CETIRIZINE HCL 10 MG TABLET PO PRN (17:00)
[2021-05-17] MEDS: INSULIN ASPART 100 UNITS/ML 3 ML PEN SC SCH ×2 (18:05→20:40)
[2021-05-17] MEDS: FAMOTIDINE 40 MG TABLET PO SCH (20:05)
[2021-05-17] MEDS: DOCUSATE SODIUM 100 MG CAP PO SCH (20:06)
[2021-05-17] MEDS: GABAPENTIN 300 MG CAP PO SCH (20:06)
[2021-05-17] MEDS: APIXABAN 5 MG TABLET PO SCH (20:07)
[2021-05-18] MEDS: LEVOTHYROXINE SODIUM 100 MCG TABLET PO SCH (06:11)
[2021-05-18] MEDS: ATORVASTATIN 40 MG TAB PO SCH (07:58)
[2021-05-18] MEDS: ASPIRIN 81 MG ECTAB PO SCH (07:59)
[2021-05-18] MEDS: GABAPENTIN 300 MG CAP PO SCH ×2 (07:59→20:54)
[2021-05-18] MEDS: METOPROLOL SUCC 50MG EXT REL TAB PO SCH (07:59)
[2021-05-18] MEDS: APIXABAN 5 MG TABLET PO SCH ×2 (07:59→20:54)
[2021-05-18] MEDS: FUROSEMIDE 40 MG TAB PO SCH (07:59)
[2021-05-18] MEDS: ISOSORBIDE MONO EXTENDED REL 30 MG TABCR PO SCH (08:00)
[2021-05-18] MEDS: INSULIN ASPART 100 UNITS/ML 3 ML PEN SC SCH ×4 (08:00→21:14)
[2021-05-18] MEDS: FAMOTIDINE 40 MG TABLET PO SCH (20:52)
[2021-05-18] MEDS: DOCUSATE SODIUM 100 MG CAP PO SCH (20:53)
[2021-05-18] MEDS: CARBAMIDE PEROXIDE 6.5% 15 ML BTL OTB SCH (20:55)
--- NOTE | 2021-05-18 22:06 | Hospitalist Progress Note ---
Date of Service May 18, 2021 Assessment & Plan (1) Syncope: Plan: This appears to be related to hypovolemia compounded by taking all his medications this morning - decrease intake since leaving hospital- evident with hyponatremia, hypochloridemia - cold and clammy followed by passing out - Will trend ECG and Troponin I - currently does not appear cardiac related - monitor on telemetry - may need to space out his BP medications - Oral resuscitation for now- he received 250 ml of 0.9% saline in the EMD -patient complaining of vertigo. will place patient on carbamide peroxide. will montior if patient improves. (2) Hyponatremia: Plan: As above - oral resuscitation - if Euvolemic in the morning can continue with his lasix - If continues to lower will free water restrict (3) CAD (coronary artery disease): Plan: Continue trending troponin and ECG as above- no dynamic changes - Continue metoprolol succ 100mg q24 - Continue ISMN 30 daily- new medication added- follow hemodynamic response has been on for 2 days - Continue Atorvastatin 80 mg - Continue ASA - Continue glucose control as well Patient darrin consented to CABG surgery but changed his mind and was discharged as per HPI. Cardiac cath- 04/28/21 Coronary angiography: 1. Left main coronary artery: LMCA is large in caliber. Distal LMCA 90% stenosis involving ostium of LAD and circumflex. 2. Left anterior descending: LAD is a large-caliber vessel that extends to the apex. Ostial LAD 80%. Mid LAD 50 to 70%. Medium caliber D1. Medium to large caliber D2 with ostial/proximal 70 to 80%. 3. Circumflex: Large and Co-dominant. Ostial circumflex 70%. Mid circumflex 40%. Distal circumflex 70%. Large OM1 ostial/proximal 50% and mid 90 to 95% involving smaller branch. Circumflex posterior lateral branch proximal 50%. PDA without significant CAD. 4. Right coronary artery: Codominant. Diffuse severe CAD. Proximal RCA 90%. Early mid RCA 80 to 90%. Distal RCA 90-95% diffuse CAD. Very small PL. Small PDA without significant CAD. Left to right collaterals. Left heart catheterization: 1. Left ventriculography was not performed. 2. Moderately elevated LVEDP; 18 mmHg. 3. No aortic stenosis. Peak to peak gradient across the aortic valve was 0. (4) Cardiomyopathy: Plan: Last previous ECHO with EF 35-45% - Severe hypokinesis of the mid to distal inferior wall - RSVP 26 - Continue therapy as above (5) Hypothyroidism: Plan: Continue Synthroid 100 mcg daily (6) Diabetes: Plan: Aspart sliding scale goal <180 CF: 20 Ratio 1:15 follow (7) Pulmonary embolus: Plan: DX in February 10- continue Apixaban (8) Lumbar stenosis: Plan: With neurogenic claudication and cauda equina syndrome - OT/PT consult assistance - physical rehab limited by his cardiac disease - straight cath QID with bladder scans - Continue with gabapentin Admission and Anticipated Discharge Date Admission Date: May 17, 2021 Subjective 70 yo male reports having episodes of vertigo. Nurse reports having large amount of cerumen in his ear canal. Review of Systems Review of Systems: REVIEW OF SYSTEMS: Constitutional: No fever, sweats or chills Eyes: No diplopia, no worsening or blurred vision ENT: normal hearing, no trouble swallowing Respiratory: No cough, sputum, dyspnea at rest or on exertion Cardiovascular: (+) dizziness, passing out, No chest pain, tightness or palpitations Abdomen: (+) n/v, No diarrhea or constipation Musculoskeletal: No joint pain, calf pain, swelling Neurologic: (+) bilateral lower extremity weakness, balance problems, foot drop Psychiatric: No anxiety or depression Skin: (+) pressure ulceration to buttocks Physical Exam Physical Exam: General: awake, alert, no apparent distress Head: Normocephalic, atraumatic ENT: PERRL, EOMI, no pharyngeal exudate, mucous membranes moist; large amount of cerumen in his ears Neuro: AAO x 3, speech clear and appropriate, strength intact bilaterally 5/5, sensation intact and equal all extremities and dermatomes, no pronator drift, bilateral lower extrmeity foot drop, decrease coordination lower extremities Chest: equal rise and fall of the chest, no accessory muscle use, no heaves or thrills, Clear to auscultation, on room air, Cardiac: Regular rate and rhythm, telemetry reviewed-NSR, skin warm dry, cap refill <3 seconds, peripheral pulses +2 no JVD, no murmur, trace lower extremity edema GI: NABS x 4 quadrants, soft, nontender to palpation, no rebound, guarding or tenderness : Spontaneously voiding, no pain, no CVA tenderness, Extremities: Normal inspection, no peripheral edema or erythema, calfs nontender to palpation Psych: Normal mood and affect Skin: well healing pressure ulcerations to buttocks, covered with optifoam Results & Data Results & Data ([facility]) Vital Signs (Past 12 Hours) Vital Signs Temp Pulse Pulse Resp BP Pulse Ox 05/18/21 19:53 37 C 84 18 106/68 92 05/18/21 15:31 85 05/18/21 14:35 36.9 C 84 16 93/52 L 93 05/18/21 11:35 36.5 C 85 18 110/69 96 PG Care Time/CCT Total # of Minutes Spent Total Time Spent with Patient: Total time spent is greater than 50% in coordination of care (as documented) at patient's floor/unit and/or counseling patient: Coding Level of Care Code 18483 Subseq Hosp Care Lvl 2 Diagnoses Syncope R55 Hyponatremia E87.1 CAD (coronary artery disease) I25.10 Associated angina: unspecified whether angina present Coronary Disease-Associated Artery/Lesion type: [place] artery [place] vs. transplanted heart: unspecified whether [place] or transplanted heart Cardiomyopathy I42.9 Hypothyroidism E03.9 Hypothyroidism type: unspecified Diabetes E11.9 Pulmonary embolus I26.99 Lumbar stenosis M48.061 (1) CAD (coronary artery disease) Associated angina: unspecified whether angina present Coronary Disease- Associated Artery/Lesion type: [place] artery [place] vs. transplanted heart: unspecified whether [place] or transplanted heart Qualified Code(s): I25.10 - Atherosclerotic heart disease of [place] coronary artery without angina pectoris (2) Hypothyroidism Hypothyroidism type: unspecified Qualified Code(s): E03.9 - Hypothyroidism, unspecified
[2021-05-19] MEDS: LEVOTHYROXINE SODIUM 100 MCG TABLET PO SCH (06:10)
[2021-05-19] MEDS: GABAPENTIN 300 MG CAP PO SCH ×3 (08:45→20:43)
[2021-05-19] MEDS: APIXABAN 5 MG TABLET PO SCH ×2 (08:45→20:44)
[2021-05-19] MEDS: ISOSORBIDE MONO EXTENDED REL 30 MG TABCR PO SCH (08:46)
[2021-05-19] MEDS: FUROSEMIDE 40 MG TAB PO SCH (08:46)
[2021-05-19] MEDS: ATORVASTATIN 40 MG TAB PO SCH (08:47)
[2021-05-19] MEDS: ASPIRIN 81 MG ECTAB PO SCH (08:47)
[2021-05-19] MEDS: METOPROLOL SUCC 50MG EXT REL TAB PO SCH (08:47)
[2021-05-19] MEDS: INSULIN ASPART 100 UNITS/ML 3 ML PEN SC SCH ×4 (08:48→21:21)
[2021-05-19] MEDS: POLYETHYLENE (MIRALAX) 17 GM PACK PO PRN (08:59)
[2021-05-19] MEDS: CARBAMIDE PEROXIDE 6.5% 15 ML BTL OTB SCH ×2 (09:00→20:44)
--- NOTE | 2021-05-19 16:44 | Electrocardiogram Report ---
Test Reason : Blood Pressure : / mmHG Vent. Rate : 097 BPM Atrial Rate : 097 BPM P-R Int : 160 ms QRS Dur : 092 ms QT Int : 362 ms P-R-T Axes : 048 -18 -58 degrees QTc Int : 459 ms Poor data quality, interpretation may be adversely affected Sinus rhythm with occasional Premature ventricular complexes T wave abnormality, consider inferolateral ischemia Abnormal ECG When compared with ECG of 02-MAY-2021 19:29, Premature ventricular complexes are now Present Confirmed by Raz Paiz ([id number]) on 05/19/2021 4:44:03 PM Referred By: Confirmed By:Raz Paiz
--- NOTE | 2021-05-19 17:04 | Electrocardiogram Report ---
Test Reason : Blood Pressure : / mmHG Vent. Rate : 077 BPM Atrial Rate : 077 BPM P-R Int : 158 ms QRS Dur : 092 ms QT Int : 412 ms P-R-T Axes : 058 -10 -59 degrees QTc Int : 466 ms Normal sinus rhythm T wave abnormality, consider inferolateral ischemia Abnormal ECG When compared with ECG of 17-MAY-2021 08:51, (unconfirmed) Premature ventricular complexes are no longer Present Confirmed by Raz Paiz ([id number]) on 05/19/2021 5:03:43 PM Referred By: REFERRED SELF Confirmed By:Raz Paiz
[2021-05-19] MEDS ORDERED: POLYETHYLENE (MIRALAX) 17 GM PACK PO ONE (18:41)
[2021-05-19] MEDS: FAMOTIDINE 40 MG TABLET PO SCH (20:43)
[2021-05-19] MEDS: DOCUSATE SODIUM 100 MG CAP PO SCH (20:43)
--- NOTE | 2021-05-19 23:13 | Hospitalist Progress Note ---
Date of Service May 19, 2021 Assessment & Plan (1) Syncope: Plan: This appears to be related to hypovolemia compounded by taking all his medications this morning - decrease intake since leaving hospital- evident with hyponatremia, hypochloridemia - cold and clammy followed by passing out - Will trend ECG and Troponin I - currently does not appear cardiac related - monitor on telemetry - may need to space out his BP medications - Oral resuscitation for now- he received 250 ml of 0.9% saline in the EMD -patient complaining of vertigo. will place patient on carbamide peroxide: first day was 05/18. Patient appears to be improving. will monitor. (2) Hyponatremia: Plan: As above - oral resuscitation - if Euvolemic in the morning can continue with his lasix - If continues to lower will free water restrict (3) CAD (coronary artery disease): Plan: Continue trending troponin and ECG as above- no dynamic changes - Continue metoprolol succ 100mg q24 - Continue ISMN 30 daily- new medication added- follow hemodynamic response has been on for 2 days - Continue Atorvastatin 80 mg - Continue ASA - Continue glucose control as well Patient darrin consented to CABG surgery but changed his mind and was discharged as per HPI. Cardiac cath- 04/28/21 Coronary angiography: 1. Left main coronary artery: LMCA is large in caliber. Distal LMCA 90% stenosis involving ostium of LAD and circumflex. 2. Left anterior descending: LAD is a large-caliber vessel that extends to the apex. Ostial LAD 80%. Mid LAD 50 to 70%. Medium caliber D1. Medium to large caliber D2 with ostial/proximal 70 to 80%. 3. Circumflex: Large and Co-dominant. Ostial circumflex 70%. Mid circumflex 40%. Distal circumflex 70%. Large OM1 ostial/proximal 50% and mid 90 to 95% involving smaller branch. Circumflex posterior lateral branch proximal 50%. PDA without significant CAD. 4. Right coronary artery: Codominant. Diffuse severe CAD. Proximal RCA 90%. Early mid RCA 80 to 90%. Distal RCA 90-95% diffuse CAD. Very small PL. Small PDA without significant CAD. Left to right collaterals. Left heart catheterization: 1. Left ventriculography was not performed. 2. Moderately elevated LVEDP; 18 mmHg. 3. No aortic stenosis. Peak to peak gradient across the aortic valve was 0. (4) Cardiomyopathy: Plan: Last previous ECHO with EF 35-45% - Severe hypokinesis of the mid to distal inferior wall - RSVP 26 - Continue therapy as above (5) Hypothyroidism: Plan: Continue Synthroid 100 mcg daily (6) Diabetes: Plan: Aspart sliding scale goal <180 CF: 20 Ratio 1:15 follow (7) Pulmonary embolus: Plan: DX in February 10- continue Apixaban (8) Lumbar stenosis: Plan: With neurogenic claudication and cauda equina syndrome - OT/PT consult assistance - physical rehab limited by his cardiac disease - straight cath QID with bladder scans - Continue with gabapentin Admission and Anticipated Discharge Date Admission Date: May 17, 2021 Subjective Patient reports dizziness is mildy better. Review of Systems 2 Review of Systems: All systems reviewed & are unremarkable except as noted in HPI & below Physical Exam Physical Exam: General: awake, alert, no apparent distress Head: Normocephalic, atraumatic ENT: PERRL, EOMI, no pharyngeal exudate, mucous membranes moist; large amount of cerumen in his ears Neuro: AAO x 3, speech clear and appropriate, strength intact bilaterally 5/5, sensation intact and equal all extremities and dermatomes, no pronator drift, bilateral lower extrmeity foot drop, decrease coordination lower extremities Chest: equal rise and fall of the chest, no accessory muscle use, no heaves or thrills, Clear to auscultation, on room air, Cardiac: Regular rate and rhythm, telemetry reviewed-NSR, skin warm dry, cap refill <3 seconds, peripheral pulses +2 no JVD, no murmur, trace lower extremity edema GI: NABS x 4 quadrants, soft, nontender to palpation, no rebound, guarding or tenderness : Spontaneously voiding, no pain, no CVA tenderness, Extremities: Normal inspection, no peripheral edema or erythema, calfs nontender to palpation Psych: Normal mood and affect Skin: well healing pressure ulcerations to buttocks, covered with optifoam Results & Data Results & Data ([facility]) Vital Signs (Past 12 Hours) Vital Signs Temp Pulse Pulse Resp BP BP Pulse Ox 05/19/21 19:29 36.8 C 76 20 110/53 L 95 05/19/21 16:30 36.6 C 78 18 107/67 95 05/19/21 14:20 71 05/19/21 11:48 36.7 C 73 18 114/55 L 95 PG Care Time/CCT Total # of Minutes Spent Total Time Spent with Patient: Total time spent is greater than 50% in coordination of care (as documented) at patient's floor/unit and/or counseling patient: Coding Level of Care Code 49875 Subseq Hosp Care Lvl 2 Diagnoses Syncope R55 Hyponatremia E87.1 CAD (coronary artery disease) I25.10 Associated angina: unspecified whether angina present Coronary Disease-Associated Artery/Lesion type: [place] artery [place] vs. transplanted heart: unspecified whether [place] or transplanted heart Cardiomyopathy I42.9 Hypothyroidism E03.9 Hypothyroidism type: unspecified Diabetes E11.9 Pulmonary embolus I26.99 Lumbar stenosis M48.061 Time Spent (min) 25 (1) CAD (coronary artery disease) Associated angina: unspecified whether angina present Coronary Disease- Associated Artery/Lesion type: [place] artery [place] vs. transplanted heart: unspecified whether [place] or transplanted heart Qualified Code(s): I25.10 - Atherosclerotic heart disease of [place] coronary artery without angina pectoris (2) Hypothyroidism Hypothyroidism type: unspecified Qualified Code(s): E03.9 - Hypothyroidism, unspecified
[2021-05-20] MEDS: LEVOTHYROXINE SODIUM 100 MCG TABLET PO SCH (06:34)
[2021-05-20 07:04] LABS: Hematocrit (blood only) 35.3 % (42-52); Hemoglobin 12.2 g/dL (14.0-18.0); Mean Corpuscular Hgb Conc 34.6 g/dL (32-36); Mean Corpuscular Volume 86.7 fL (80-100); Mean Platelet Volume 10.7 fL (7.4-10.4); Platelet Count 226 K/uL (130-400); RDW Coefficient of Variation 13.3 % (11.5-14.5); RDW Standard Deviation 42.2 fL (36.4-46.3); Red Blood Count 4.07 M/uL (4.7-6.1); White Blood Count 7.35 K/uL (4.8-10.8)
--- NOTE | 2021-05-20 07:21 | Electrocardiogram Report ---
Test Reason : Blood Pressure : / mmHG Vent. Rate : 070 BPM Atrial Rate : 070 BPM P-R Int : 162 ms QRS Dur : 096 ms QT Int : 422 ms P-R-T Axes : 058 -15 -45 degrees QTc Int : 455 ms Normal sinus rhythm T wave abnormality, consider inferolateral ischemia Abnormal ECG When compared with ECG of 18-MAY-2021 06:05, (unconfirmed) No significant change was found Confirmed by Raz Paiz ([id number]) on 05/20/2021 7:21:02 AM Referred By: REFERRED SELF Confirmed By:Raz Paiz
[2021-05-20 07:28] LABS: BUN Creatinine Ratio 25.7 (10-20); Creatinine Clr Calc Pharmacy 91.1 ml/min; Est GFR (African American) 103.5 ml/min; Est GFR (Non-African American) 89.3 ml/min; Potassium 3.6 mmol/L (3.5-5.1)
[2021-05-20] MEDS: FUROSEMIDE 40 MG TAB PO SCH (08:11)
[2021-05-20] MEDS: APIXABAN 5 MG TABLET PO SCH ×2 (08:12→21:08)
[2021-05-20] MEDS: ASPIRIN 81 MG ECTAB PO SCH (08:12)
[2021-05-20] MEDS: ISOSORBIDE MONO EXTENDED REL 30 MG TABCR PO SCH (08:12)
[2021-05-20] MEDS: ATORVASTATIN 40 MG TAB PO SCH (08:13)
[2021-05-20] MEDS: GABAPENTIN 300 MG CAP PO SCH ×3 (08:13→21:09)
[2021-05-20] MEDS: INSULIN ASPART 100 UNITS/ML 3 ML PEN SC SCH ×4 (08:15→21:09)
[2021-05-20] MEDS: CARBAMIDE PEROXIDE 6.5% 15 ML BTL OTB SCH ×2 (08:17→21:08)
[2021-05-20] MEDS: METOPROLOL SUCC 50MG EXT REL TAB PO SCH (09:15)
[2021-05-20] MEDS: POLYETHYLENE (MIRALAX) 17 GM PACK PO PRN (14:43)
[2021-05-20] MEDS ORDERED: POLYETHYLENE (MIRALAX) 17 GM PACK PO ONE (15:47)
[2021-05-20] MEDS ORDERED: MICONAZOLE NITRATE POWDER 43 GM EXT PRN (19:34)
--- NOTE | 2021-05-20 19:50 | XRay Report ---
KUB CLINICAL HISTORY: Constipation. FINDINGS: 2 AP supine abdominal radiographs are compared to study dated 01/20/2021 and correlated with abdominal CT dated 05/17/2021. There is a nonobstructed abdominal bowel gas pattern. There is rectosi gmoid fecal impaction and moderate to severe constipation. No evidence of intraperitoneal free air is seen on these supine images. There are no abnormal abdominal calcifications. Fusion hardware is note d in the lower lumbar spine. Bilateral hip arthroplasties are in place. IMPRESSION: Rectosigmoid fecal impaction and moderate to severe constipation. Electronically signed by: Morris Coburn M.D. 05/20/2021 7:49 PM
[2021-05-20] MEDS ORDERED: SOD PHOSPHATE/SOD BIPHOSPHATE ENEMA 132 ML BTL PR STA (20:18)
[2021-05-20] MEDS: DOCUSATE SODIUM 100 MG CAP PO SCH (21:09)
[2021-05-20] MEDS: FAMOTIDINE 40 MG TABLET PO SCH (21:09)
--- NOTE | 2021-05-20 21:57 | Hospitalist Progress Note ---
Date of Service May 20, 2021 Assessment & Plan (1) Syncope: Plan: This appears to be related to hypovolemia compounded by taking all his medications this morning - decrease intake since leaving hospital- evident with hyponatremia, hypochloridemia - cold and clammy followed by passing out - Will trend ECG and Troponin I - currently does not appear cardiac related - monitor on telemetry - may need to space out his BP medications - Oral resuscitation for now- he received 250 ml of 0.9% saline in the EMD -patient complaining of vertigo. Likely multifactorial: hyponatremia may be playing a large role. Sodium has improved. will place patient on carbamide peroxide: first day was 05/18. Patient appears to be improving. Constipation Patient has not had a BM for 5 days. Will obtain KUB. if no obstruction, will order enema. may need fecal desimpaction (2) Hyponatremia: Plan: As above - oral resuscitation - if Euvolemic in the morning can continue with his lasix - If continues to lower will free water restrict (3) CAD (coronary artery disease): Plan: Continue trending troponin and ECG as above- no dynamic changes - Continue metoprolol succ 100mg q24 - Continue ISMN 30 daily- new medication added- follow hemodynamic response has been on for 2 days - Continue Atorvastatin 80 mg - Continue ASA - Continue glucose control as well Patient darrin consented to CABG surgery but changed his mind and was discharged as per HPI. Cardiac cath- 04/28/21 Coronary angiography: 1. Left main coronary artery: LMCA is large in caliber. Distal LMCA 90% stenosis involving ostium of LAD and circumflex. 2. Left anterior descending: LAD is a large-caliber vessel that extends to the apex. Ostial LAD 80%. Mid LAD 50 to 70%. Medium caliber D1. Medium to large caliber D2 with ostial/proximal 70 to 80%. 3. Circumflex: Large and Co-dominant. Ostial circumflex 70%. Mid circumflex 40%. Distal circumflex 70%. Large OM1 ostial/proximal 50% and mid 90 to 95% involving smaller branch. Circumflex posterior lateral branch proximal 50%. PDA without significant CAD. 4. Right coronary artery: Codominant. Diffuse severe CAD. Proximal RCA 90%. Early mid RCA 80 to 90%. Distal RCA 90-95% diffuse CAD. Very small PL. Small PDA without significant CAD. Left to right collaterals. Left heart catheterization: 1. Left ventriculography was not performed. 2. Moderately elevated LVEDP; 18 mmHg. 3. No aortic stenosis. Peak to peak gradient across the aortic valve was 0. (4) Cardiomyopathy: Plan: Last previous ECHO with EF 35-45% - Severe hypokinesis of the mid to distal inferior wall - RSVP 26 - Continue therapy as above (5) Hypothyroidism: Plan: Continue Synthroid 100 mcg daily (6) Diabetes: Plan: Aspart sliding scale goal <180 CF: 20 Ratio 1:15 follow (7) Pulmonary embolus: Plan: DX in February 10- continue Apixaban (8) Lumbar stenosis: Plan: With neurogenic claudication and cauda equina syndrome - OT/PT consult assistance - physical rehab limited by his cardiac disease - straight cath QID with bladder scans - Continue with gabapentin Admission and Anticipated Discharge Date Admission Date: May 17, 2021 Subjective Patient is reporting that he remains constipated. He has not passed a stool for past 5 days. Review of Systems Review of Systems: All systems reviewed & are unremarkable except as noted in HPI & below Physical Exam Physical Exam: General: awake, alert, no apparent distress Head: Normocephalic, atraumatic ENT: PERRL, EOMI, no pharyngeal exudate, mucous membranes moist; large amount of cerumen in his ears Neuro: AAO x 3, speech clear and appropriate, strength intact bilaterally 5/5, sensation intact and equal all extremities and dermatomes, no pronator drift, bilateral lower extrmeity foot drop, decrease coordination lower extremities Chest: equal rise and fall of the chest, no accessory muscle use, no heaves or thrills, Clear to auscultation, on room air, Cardiac: Regular rate and rhythm, telemetry reviewed-NSR, skin warm dry, cap refill <3 seconds, peripheral pulses +2 no JVD, no murmur, trace lower extremity edema GI: NABS x 4 quadrants, soft, nontender to palpation, no rebound, guarding or tenderness : Spontaneously voiding, no pain, no CVA tenderness, Extremities: Normal inspection, no peripheral edema or erythema, calfs nontender to palpation Psych: Normal mood and affect Skin: well healing pressure ulcerations to buttocks, covered with optifoam Results & Data Results & Data ([facility]) Vital Signs (Past 12 Hours) Vital Signs Temp Pulse Pulse Resp BP BP Pulse Ox 05/20/21 19:40 36.4 C L 73 20 119/74 95 05/20/21 16:00 36.8 C 72 18 111/68 95 05/20/21 15:17 74 05/20/21 11:11 36.9 C 75 18 129/80 94 PG Care Time/CCT Total # of Minutes Spent Total Time Spent with Patient: Total time spent is greater than 50% in coordination of care (as documented) at patient's floor/unit and/or counseling patient: Coding Level of Care Code 47389 Subseq Hosp Care Lvl 2 Diagnoses Syncope R55 Hyponatremia E87.1 CAD (coronary artery disease) I25.10 Associated angina: unspecified whether angina present Coronary Disease-Associated Artery/Lesion type: [place] artery [place] vs. transplanted heart: unspecified whether [place] or transplanted heart Cardiomyopathy I42.9 Hypothyroidism E03.9 Hypothyroidism type: unspecified Diabetes E11.9 Pulmonary embolus I26.99 Lumbar stenosis M48.061 Time Spent (min) 25 (1) CAD (coronary artery disease) Associated angina: unspecified whether angina present Coronary Disease- Associated Artery/Lesion type: [place] artery [place] vs. transplanted heart: unspecified whether [place] or transplanted heart Qualified Code(s): I25.10 - Atherosclerotic heart disease of [place] coronary artery without angina pectoris (2) Hypothyroidism Hypothyroidism type: unspecified Qualified Code(s): E03.9 - Hypothyroidism, unspecified
[2021-05-20] MEDS ORDERED: bisacodyL 10 MG SUPP PR STA (22:12)
[2021-05-21] MEDS: LEVOTHYROXINE SODIUM 100 MCG TABLET PO SCH (06:03)
[2021-05-21] MEDS: ASPIRIN 81 MG ECTAB PO SCH (07:39)
[2021-05-21] MEDS: ATORVASTATIN 40 MG TAB PO SCH (07:39)
[2021-05-21] MEDS: FUROSEMIDE 40 MG TAB PO SCH (07:39)
[2021-05-21] MEDS: ISOSORBIDE MONO EXTENDED REL 30 MG TABCR PO SCH (07:39)
[2021-05-21] MEDS: METOPROLOL SUCC 50MG EXT REL TAB PO SCH (07:39)
[2021-05-21] MEDS: GABAPENTIN 300 MG CAP PO SCH (07:39)
[2021-05-21] MEDS: APIXABAN 5 MG TABLET PO SCH (07:40)
[2021-05-21] MEDS: CARBAMIDE PEROXIDE 6.5% 15 ML BTL OTB SCH (07:40)
[2021-05-21 07:48] LABS: Hematocrit (blood only) 36.3 % (42-52); Hemoglobin 12.5 g/dL (14.0-18.0); Mean Corpuscular Hgb Conc 34.4 g/dL (32-36); Mean Corpuscular Volume 87.3 fL (80-100); Platelet Count 238 K/uL (130-400); RDW Coefficient of Variation 13.5 % (11.5-14.5); Red Blood Count 4.16 M/uL (4.7-6.1); White Blood Count 8.59 K/uL (4.8-10.8)
[2021-05-21 08:13] LABS: BUN Creatinine Ratio 24.7 (10-20); Calcium 8.8 mg/dl (8.5-10.1); Creatinine Clr Calc Pharmacy 96.9 ml/min; Est GFR (African American) 106.2 ml/min; Est GFR (Non-African American) 91.6 ml/min; Potassium 3.8 mmol/L (3.5-5.1)
[2021-05-21] MEDS: INSULIN ASPART 100 UNITS/ML 3 ML PEN SC SCH (08:14)
--- NOTE | 2021-05-21 08:51 | Discharge Summary ---
Date of Service May 21, 2021 Admission HPI Per Admitting Provider 70 YOM with past medical history: of CAD, CHF, cauda equina syndrome secondary to spinal stenosis, pressure ulcer on buttocks, DM, PE, testicular cancer. Patient was at [facility] for the past 2 weeks for evaluation of 3V CABG surgery for his CAD and NSTEMI. With his reduced EF he was likely going to need mechanical support following the surgery. The patient eventually declined the surgical intervention risks. The patient had his medications adjusted to include addition of ISMN, discontinuation of his Lisinopril, and increasing of his atorvastatin, he was discharged yesterday and came home. He was tired when he g ot home so didn't eat much dinner and just went to bed. Got up this morning feeling decently well, had breakfast and took his medications. He then went and sat on the porch ~ 30 min after breakfast. He started to not feel well with feeling tired, dizzy and diaphoretic so he called his daughter to get up and go inside. He got up with the wheel-chair and made it to the door before he passed out, when he got up he was nauseated and had an episode of vomiting. The daughter does endorse that he was very diaphoretic-cold and clammy. The patient got up and then proceeded to take 2 of his nitroglycerin tablets, because he was instructed if he had any incidence of nausea, vomiting, chest pain, or feeling unwell to take ASA and NTG. The first NTG made the patient more nauseated and he threw up again. He then took another nitroglycerin and felt better. In the EMD he had a CXR, ECG, and routine labs to include a cardiac profile. Troponin I is negative and ECG has no dynamic changes. CXR is negative for acute process and CT scan of the abdomen and pelvis is negative as well. Patient will be admitted for gentle resuscitation, orally and following his ECG and troponin, adjustment of BP medications as needed. For his history of stage III pressure ulcer, this is healing well surrounding tissues are blanchable and areas to both buttocks are small. Will continue with cleansing daily and Optifoam covering. Continue with offloading. Nursing wound care will be placed. Patient had his COVID vaccines and his COVID test is NEGATIVE on admission. Principal Diagnosis syncope Discharge Exam General: awake, alert, no apparent distress Head: Normocephalic, atraumatic ENT: PERRL, EOMI, no pharyngeal exudate, mucous membranes moist; large amount of cerumen in his ears Neuro: AAO x 3, speech clear and appropriate, strength intact bilaterally 5/5, sensation intact and equal all extremities and dermatomes, no pronator drift, bilateral lower extremity foot drop, decrease coordination lower extremities Chest: equal rise and fall of the chest, no accessory muscle use, no heaves or thrills, Clear to auscultation, on room air, Cardiac: Regular rate and rhythm, telemetry reviewed-NSR, skin warm dry, cap refill <3 seconds, peripheral pulses +2 no JVD, no murmur, trace lower extremity edema GI: NABS x 4 quadrants, soft, nontender to palpation, no rebound, guarding or tenderness : Spontaneously voiding, no pain, no CVA tenderness, Extremities: Normal inspection, no peripheral edema or erythema, calfs nontender to palpation Psych: Normal mood and affect Skin: well healing pressure ulcerations to buttocks, covered with optifoam Discharge Data Allergies Allergy/AdvReac Type Severity Reaction Status Date / Time Penicillins Allergy Intermediate HIGH Verified 05/17/21 09:50 FEVER, RASH (NOTED ALLERGIC TO "ANY-CILLIN" bee pollen Allergy Unknown Unknown Verified 05/17/21 09:50 Consultations 05/17/21 11:14 ED Decision to Admit Stat Ordered Studies 05/17/21 09:25 CT abd pelvis wo con Stat Hospital Course (1) Syncope: This appears to be related to hypovolemia compounded by taking all his medications this morning - decrease intake since leaving hospital- evident with hyponatremia, hypochloridemia - cold and clammy followed by passing out - Will trend ECG and Troponin I - currently does not appear cardiac related - monitor on telemetry - may need to space out his BP medications - Oral resuscitation for now- he received 250 ml of 0.9% saline in the EMD -patient complaining of vertigo. Likely multifactorial: hyponatremia may be playing a large role. Sodium has improved. will place patient on carbamide peroxide: first day was 05/18- finished cours tim 05/19 Patient appears to be improving and states he is at his baseline. Home health is already Constipation Patient did not have a BM for 5 days. KUB showed large amount of stool in rectum. After enema ordered, patient passed large amount of stools overnight prior to discharge. Patient now feels comfortable. (2) Hyponatremia: As above - oral resuscitation: resolved. - if Euvolemic in the morning can continue with his lasix at discharge (3) CAD (coronary artery disease): Continue trending troponin and ECG as above- no dynamic changes - Continue metoprolol succ 100mg q24 - Continue ISMN 30 daily- new medication added- follow hemodynamic response has been on for 2 days - Continue Atorvastatin 80 mg - Continue ASA - Continue glucose control as well Patient mavislly consented to CABG surgery but changed his mind and was discharged as per HPI. Cardiac cath- 04/28/21 Coronary angiography: 1. Left main coronary artery: LMCA is large in caliber. Distal LMCA 90% mariaelena nosis involving ostium of LAD and circumflex. 2. Left anterior descending: LAD is a large-caliber vessel that extends to the apex. Ostial LAD 80%. Mid LAD 50 to 70%. Medium caliber D1. Medium to large caliber D2 with ostial/proximal 70 to 80%. 3. Circumflex: Large and Co-dominant. Ostial circumflex 70%. Mid circumflex 40%. Distal circumflex 70%. Large OM1 ostial/proximal 50% and mid 90 to 95% involving smaller branch. Circumflex posterior lateral branch proximal 50%. PDA without significant CAD. 4. Right coronary artery: Codominant. Diffuse severe CAD. Proximal RCA 90%. Early mid RCA 80 to 90%. Distal RCA 90-95% diffuse CAD. Very small PL. Small PDA without significant CAD. Left to right collaterals. Left heart catheterization: 1. Left ventriculography was not performed. 2. Moderately elevated LVEDP; 18 mmHg. 3. No aortic stenosis. Peak to peak gradient across the aortic valve was 0. (4) Cardiomyopathy: Last previous ECHO with EF 35-45% - Severe hypokinesis of the mid to distal inferior wall - RSVP 26 - Continue therapy as above (5) Hypothyroidism: Continue Synthroid 100 mcg daily (6) Diabetes: Aspart sliding scale goal <180 CF: 20 Ratio 1:15 follow (7) Pulmonary embolus: DX in February 10- continue Apixaban (8) Lumbar stenosis: With neurogenic claudication and cauda equina syndrome - OT/PT consult assistance - physical rehab limited by his cardiac disease - straight cath QID with bladder scans - Continue with gabapentin Total Time Total Time Spent Total Time Spent (In Minutes): 32 Discharge Plan Discharge Items Patient Disposition: Home - Home Health Services Reason For Visit: SYNCOPE, VOMITTING Discharge Diagnosis: syncope Activity: Resume your previous activity Non-emergency contact: Primary Care Provider Call non-emergency contact if: you have any medication questions Follow-up/Referrals: Liz Kirby DO [Primary Care Provider] - 06/01/21 10:20 am Diet: Carb Consistent or DM2 Addtl Attending Provider Instructions: You were found to have an episode of passing out. It appears your sodium count was abnormal. You sodium did increase over the course of your hospital stay. Will recommend close followup with your PCP. Pending Studies at Discharge: No Stand-Alone Forms: My [facility] Good Greens, Smoking Cessation Medications and DC Order Prescriptions: Continued metformin 1,000 mg tablet 1,000 mg PO BID Qty: 180 RF: 1 (DME) Roho Cushion See Rx Instructions .Route .MEDSUPPLY Qty: 1 RF: 0 (DME) Mattress (Air or other) Misc See Rx Instructions .Route Qty: 1 RF: 0 famotidine 40 mg tablet 40 mg PO HS Qty: 90 RF: 1 (DME) diaper,brief,adult,disposable Misc See Rx Instructions .ROUTE .MEDSUPPLY Qty: 126 RF: 3 polyethylene glycol 3350 [Miralax] 17 gram powder in packet 17 g PO QAM PRN (Reason: Constipation) RF: 0 apixaban 5 mg Tablet 5 mg PO BID RF: 0 gabapentin 300 mg capsule 300 mg PO AMPM RF: 0 nitroglycerin 0.4 mg tablet, sublingual 0.4 mg sublingual ONCE Qty: 10 RF: 0 metoprolol succinate 100 mg tablet extended release 24 hr 100 mg PO QAM RF: 0 aspirin 81 mg tablet,delayed release (DR/EC) 81 mg PO QAM RF: 0 glimepiride 2 mg tablet 2 mg PO QAM RF: 0 allopurinol 300 mg tablet 300 mg PO QAM RF: 0 furosemide 40 mg Tablet 40 mg PO QAM RF: 0 atorvastatin 80 mg tablet 80 mg PO QAM RF: 0 cetirizine 10 mg Tablet 10 mg PO QAM PRN (Reason: Seasonal Allergies) RF: 0 isosorbide mononitrate 30 mg tablet extended release 24 hr 30 mg PO QAM RF: 0 acetaminophen [Tylenol Extra Strength] 500 mg Tablet 1,000 mg PO Q6H PRN (Reason: fever/Pain) RF: 0 levothyroxine 100 mcg tablet 100 mcg PO DAILYBB RF: 0 docusate sodium 100 mg Capsule 200 mg PO PM RF: 0 Discharge Orders: Discharge Order (Routine); Ordered 05/21/21 Ordered By: Errol Mccloud Admission Data Admit Date/Time: 05/17/21 14:09 Attending Provider: Errol Mccloud Admit Provider: Frederic Borja Primary Care Provider: Liz Kirby Other Providers: Frederic Borja Other Interventions: Discharge Summary Assessment (RN) Last Done: 05/21/21 10:07 Coding Level of Care Code D/C DAY MANAGEMENT >30 MINS Diagnoses Syncope R55 Hyponatremia E87.1 CAD (coronary artery disease) I25.10 Associated angina: unspecified whether angina present Coronary Disease-Associated Artery/Lesion type: [place] artery [place] vs. transplanted heart: unspecified whether king salmon or transplanted heart Cardiomyopathy I42.9 Hypothyroidism E03.9 Hypothyroidism type: unspecified Diabetes E11.9 Pulmonary embolus I26.99 Lumbar stenosis M48.061 Time Spent (min) 32
== END 2021-05-21 10:49 | disposition home health service (06) | DRG 640 ==
LOC: ED 08:44 → SUATTDRO 14:09 → EDINP 14:09 → 2W 15:55

== ENCOUNTER 2021-10-24 21:58 | Inpatient (IN) ==
[2021-10-24] MEDS ORDERED: SODIUM CHLORIDE 0.9% 500 ML IV STA (22:19)
[2021-10-24] MEDS ORDERED: ONDANSETRON INJ 2 MG/ML 2 ML VIAL IV STA ×2 (22:19→22:56)
[2021-10-24] MEDS ORDERED: SODIUM CHLORIDE 0.9% 1000ML 1,000 ML IV STA (22:19)
[2021-10-24] MEDS ORDERED: ACETAMINOPHEN 1,000 MG/100 ML VIAL IV STA (22:19)
[2021-10-24] MEDS ORDERED: NITROGLYCERIN 2% OINTMENT 30GM TUBE EXT ONE (22:48)
[2021-10-24] MEDS ORDERED: fentaNYL citrate 100 MCG/2 ML VIAL IV STA (22:56)
[2021-10-24 23:05] LABS: Basophils # (auto) 0.02 K/uL (0-0.2); Basophils % (auto) 0.2 %; Eosinophils # (auto) 0.17 K/uL (0-0.5); Eosinophils % (auto) 2.1 %; Hematocrit (blood only) 34.3 % (42-52); Hemoglobin 11.4 g/dL (14.0-18.0); Immature Granulocytes # (auto) 0.01 K/uL (0.00-0.02); Immature Granulocytes % (auto) 0.1 %; Lymphocytes # (auto) 0.82 K/uL (1.2-3.4); Lymphocytes % (auto) 9.9 %; Mean Corpuscular Hemoglobin 30.5 pg (25-34); Mean Corpuscular Hgb Conc 33.2 g/dL (32-36); Mean Corpuscular Volume 91.7 fL (80-100); Mean Platelet Volume 10.8 fL (7.4-10.4); Monocytes % (auto) 3.6 %; Neutrophils # (auto) 6.93 K/uL (1.4-6.5); Neutrophils % (auto) 84.1 %; Platelet Count 252 K/uL (130-400); RDW Coefficient of Variation 13.9 % (11.5-14.5); RDW Standard Deviation 45.5 fL (36.4-46.3); Red Blood Count 3.74 M/uL (4.7-6.1); White Blood Count 8.25 K/uL (4.8-10.8)
[2021-10-24] MEDS ORDERED: METOPROLOL TARTRATE 1 MG/ML VIAL IV STA (23:05)
[2021-10-24] MEDS ORDERED: Heparin IV Adult Wt-Based Low-Dose WITH Bolus Protocol IV STA (23:23)
[2021-10-24] MEDS ORDERED: STAT IV Infusion **Titration per Protocol STA (23:23)
[2021-10-24 23:25] LABS: Influenza A virus by PCR Negative (Negative); Influenza B virus by PCR Negative (Negative)
[2021-10-24 23:29] LABS: Alanine Aminotransferase 10 U/L (7-52); Albumin Globulin Ratio 1.4 (0.9-2); Albumin Level 3.7 gm/dl (3.4-5.0); Alkaline Phosphatase 65 U/L (34-104); Anion Gap 8 (3-11); Aspartate Aminotransferase 11 U/L (13-39); BUN Creatinine Ratio 18.5 (10-20); Bilirubin,Total 0.7 mg/dl (0.2-1.0); Blood Urea Nitrogen 17 mg/dl (6-23); Calcium 8.3 mg/dl (8.5-10.1); Carbon Dioxide 27 mmol/L (21-32); Chloride 101 mmol/L (98-107); Creatinine Clr Calc Pharmacy 92.9 ml/min; Est GFR (African American) 97.3 ml/min; Globulin 2.6 gm/dl (2.5-4.0); Glucose 153 mg/dl (70-99(Fasting)); Potassium 4.4 mmol/L (3.5-5.1); Sodium 136 mmol/L (136-145); Total Protein 6.3 gm/dl (6.0-8.3)
[2021-10-24] MEDS ORDERED: cefTRIAXone SODIUM 2,000 MG/70 ML BAG IV STA (23:29)
[2021-10-24 23:31] LABS: Troponin I < 0.03 ng/ml (0-0.04)
[2021-10-24] MEDS ORDERED: HEPARIN SOD (PORCINE) 1000 UNIT/ML IV ONE (23:41)
[2021-10-24] MEDS ORDERED: HEPARIN SODIUM/DEXTROSE 25,000 UNITS/500 ML BAG IV SCH (23:45)
--- NOTE | 2021-10-24 23:56 | History & Physical Report ---
Date of Service October 24, 2021 Assessment & Plan (1) Shortness of breath: Plan: Unstable angina/shortness of breath/chest pain/hypertension/multivessel CAD/ischemic cardiomyopathy/history non-STEMI- The patient will be admitted to telemetry for serial cardiac enzymes, serial EKG's, cardiac rhythm monitoring and a 2-D echocardiogram with Dopplers. Continue aspirin, furosemide, metoprolol succinate Hold apixaban, Start heparin drip with bolus per protocol (2) Chest pain: Plan: See above (3) Dyslipidemia (high LDL; low HDL): Plan: Continue atorvastatin 80 mg daily (4) Hypertension: Plan: See above (5) Chronic systolic CHF (congestive heart failure): Plan: See above (6) CAD, multiple vessel: Plan: See above (7) Ischemic cardiomyopathy: Plan: See above (8) History of pulmonary embolism: Plan: Last apixaban dose this morning. Starting heparin drip with IV bolus per standard protocol for unstable angina (9) Diabetes: Plan: Place on Accu-Cheks before meals and at bedtime with NovoLog coverage per scale Hold Metformin and glimepiride (10) Cauda equina syndrome: Plan: Cauda equina syndrome/neurogenic bowel/neurogenic bladder- Continue usual support (11) Neurogenic bowel: Plan: See above (12) Neurogenic bladder: Plan: See above (13) Non-ST elevation TN (NSTEMI): Plan: See above (14) Hypothyroidism: Plan: Continue levothyroxine 100 mcg daily (15) Acid reflux: Plan: Continue famotidine History of Present Illness Chief Complaint: The patient presents to the emergency department with complaint of substernal chest discomfort and left arm heaviness, that required him to take sublingual nitroglycerin every 1/2 hours over the previous evening, and persisted throughout the day today. Primary Care Provider: Liz Kirby DO The patient is a 71-year-old male with a past medical history including hyperlipidemia, hypertension, chronic systolic CHF, multivessel CAD, recurrent UTI, ischemic cardiomyopathy, history of pulmonary embolism, cauda equina syndrome with neurogenic bowel and bladder, hypothyroidism, diabetes mellitus, gout, allergic rhinitis and testicular cancer. He presents with symptoms as noted above. Because of the persistence and worsening of symptoms, he presented to the ED for assessment this evening. Interventional cardiology Dr. Castillo Deutsch was consulted by the ED, who recommended the patient be admitted to the hospital for further assessment in the a.m. Allergies Allergy/AdvReac Type Severity Reaction Status Date / Time bee venom protein (honey bee) Allergy Severe EXTREME Verified 10/24/21 23:05 SWELLING--STUNG ON HAND, ARM SWELLED TO SHOULDER. Penicillins Allergy Intermediate HIGH Verified 10/24/21 23:05 FEVER, RASH (NOTED ALLERGIC TO "ANY-CILLIN" Home Medications Medication Instructions Recorded Confirmed Type diaper,brief,adult,disposable #126 ea 03/07/21 09/21/21 Rx Roho Cushion #1 ea 03/17/21 09/21/21 Rx aspirin 81 mg tablet,delayed 81 mg PO QAM 05/02/21 10/24/21 History release Mattress (Air or other) #1 ea 05/03/21 09/21/21 Rx acetaminophen 500 mg tablet 1,000 mg PO Q6H PRN 05/17/21 10/24/21 History (Tylenol Extra Strength) atorvastatin 80 mg tablet 80 mg PO QAM #90 tab 06/15/21 10/24/21 Rx cetirizine 10 mg tablet 10 mg PO QAM PRN #90 tab 06/15/21 10/24/21 Rx glimepiride 2 mg tablet 2 mg PO QAM #90 tab 06/15/21 10/24/21 Rx apixaban 5 mg tablet 5 mg PO BID #60 tab 06/20/21 10/24/21 Rx furosemide 40 mg tablet 40 mg PO QAM #90 tab 07/06/21 10/24/21 Rx famotidine 40 mg tablet 40 mg PO HS #90 tab 07/14/21 10/24/21 Rx metformin 1,000 mg tablet 1,000 mg PO BID #180 tab 07/20/21 10/24/21 Rx cranberry 500 mg capsule 500 mg PO DAILY cap 07/26/21 10/24/21 History sennosides 8.6 mg capsule (senna) 8.6 mg PO DAILY 07/26/21 10/24/21 History gabapentin 300 mg capsule 300 mg PO TID #180 cap 07/27/21 10/24/21 Rx sacubitril 24 mg-valsartan 26 mg 1 tab PO BID #60 tab 08/09/21 10/24/21 Rx tablet (Entresto) allopurinol 300 mg tablet 300 mg PO QAM #90 tab 08/30/21 10/24/21 Rx levothyroxine 100 mcg tablet 100 mcg PO .COMPLEX #102 tab 09/04/21 10/24/21 Rx nitroglycerin 0.4 mg sublingual 0.4 mg SUBLINGUAL DIRECTED PRN 09/04/21 10/24/21 Rx tablet #30 tab omeprazole 20 mg capsule,delayed 20 mg PO QAM #90 cap 09/04/21 10/24/21 Rx release isosorbide mononitrate 30 mg 60 mg PO QAM #90 tab 09/11/21 10/24/21 Rx tablet,extended release 24 hr nitrofurantoin 100 mg PO BID 7 Days #14 cap 10/19/21 10/24/21 Rx monohydrate/macrocrystals 100 mg capsule (Macrobid) Saccharomyces boulardii 250 mg 250 mg PO BID 10/24/21 10/24/21 History capsule (Probiotic (S.boulardii)) metoprolol succinate 50 mg 50 mg PO DAILY #90 tab 10/24/21 10/24/21 Rx tablet,extended release 24 hr Past Med/Surg History Medical History Allergic rhinitis CAD, multiple vessel Cauda equina syndrome (12/2020) Chronic systolic CHF (congestive heart failure) Constipation Diabetes Dyslipidemia (high LDL; low HDL) GERD (gastroesophageal reflux disease) Gout History of pulmonary embolism (01/23/21) Hx of testicular cancer Hypertension Hypothyroidism Ischemic cardiomyopathy Lumbar disc herniation with radiculopathy Neurogenic bladder Neurogenic bowel Spinal stenosis, lumbar region with neurogenic claudication Urinary retention Surgical History Hx of total hip arthroplasty S/P orchiopexy Status post lumbar surgery (01/18/21) Family History Father Lung cancer Cancer brain Mother Diabetes Uncle Prostate cancer Grandmother (Paternal) Stroke Family/Other Colorectal cancer Breast cancer Myocardial infarction Grandfather (Maternal) Rheumatoid arthritis Denies family history of Ovarian cancer Social History Smoking Status: Former smoker Tobacco Type: Cigarettes Age Quit Using Tobacco: 65; packs per day: 0.5; Years Smoked: 24; Cigarettes Per Day: just a few per week; Second Hand Exposure: No; Hx Alcohol Use: No Hx Substance Use: No Preferred Language: Indonesian Communication Ability: Effective Visual Impairment: No Limitations Hearing Ability: Normal Automatic Chief Required: No Beliefs That Will Affect Care: None marital status: Current Living Situation: Spouse current occupational status: retired How many Children do You have: 2 How many Children do You have Comment: live local, children and able to help with care as needed. Feels Safe at Home: Yes Childhood Exposure to Second-Hand Smoke: No Diet Comment: eats what he wants to , has tried to start eating "healthier" caffeine: Yes during the past year weight has: increased > 10 lbs Dental Care, Regularly: No Physical Activity Frequency: Other Physical Activity Frequency Comment: house chores Seatbelt Use: never Sunscreen Use: No Assistive Devices: Brace/Splint/Immobilizer, Walker and Wheelchair Review of Systems Review of Systems: The patient denies palpitations, cough, lower extremity swelling, sore throat, fevers, chills, sweats, nausea, vomiting, diarrhea , constipation, abdominal pain, pelvic pain, blood in urine or stool, dysuria, urinary frequency or urgency, lightheadedness, dizziness, headache, memory loss, loss of consciousness, rash, abnormal bruising or bleeding, imbalance, focal or generalized weakness, numbness or tingling in arms, generalized arthralgias or myalgias, neck pain, or night sweats. The review of systems is otherwise negative other than for that already noted above, and at least 10 systems have been reviewed. Physical Exam Physical Exam: The patient is awake, alert and oriented 3, well developed and well nourished, normocephalic and atraumatic, lying in bed and in no acute distress. HEENT--PERRL, EOMI, mucous membranes and oropharynx normal Neck--supple. No JVD. No bruits. Thyroid normal, trachea midline, no adenopathy. Heart--normal S1 and S2. No murmurs, rubs or gallops. Lungs--clear bilaterally, no respiratory distress, no accessory muscle use. Abdomen--normal bowel sounds and soft. Nontender. Nondistended. Extremities--no cyanosis or clubbing. No edema. Dermatologic--normal skin turgor, normal color, no abnormal lymph nodes, no rash. Neurologic--cranial nerves II through XII grossly intact. Decreased motor strength bilateral lower extremities Rheumatologic--normal range of motion. Psychiatric--normal affect. Results & Data Results & Data ([facility]) Vital Signs (Past 12 Hours) Vital Signs Temp Pulse Pulse Resp BP BP Pulse Ox 10/24/21 23:35 107 H 16 148/98 H 98 10/24/21 22:11 38.2 C H 119 H 20 140/91 95 Laboratory Results Laboratory Results WBC 8.25 K/uL (4.8-10.8) 10/24/21 22:56 RBC 3.74 M/uL (4.7-6.1) L 10/24/21 22:56 Hgb 11.4 g/dL (14.0-18.0) L 10/24/21 22:56 Hct 34.3 % (42-52) L 10/24/21 22:56 MCV 91.7 fL (80-100) 10/24/21 22:56 MCH 30.5 pg (25-34) 10/24/21 22:56 MCHC 33.2 g/dL (32-36) 10/24/21 22:56 RDW Std Deviation 45.5 fL (36.4-46.3) 10/24/21 22:56 RDW Coeff of Radha 13.9 % (11.5-14.5) 10/24/21 22:56 Plt Count 252 K/uL (130-400) 10/24/21 22:56 MPV 10.8 fL (7.4-10.4) H 10/24/21 22:56 Immature Gran % (Auto) 0.1 % 10/24/21 22:56 Neut % (Auto) 84.1 % 10/24/21 22:56 Lymph % (Auto) 9.9 % 10/24/21 22:56 Starke % (Auto) 3.6 % 10/24/21 22:56 Eos % (Auto) 2.1 % 10/24/21 22:56 Baso % (Auto) 0.2 % 10/24/21 22:56 Neut # (Auto) 6.93 K/uL (1.4-6.5) H 10/24/21 22:56 Lymph # (Auto) 0.82 K/uL (1.2-3.4) L 10/24/21 22:56 Starke # (Auto) 0.30 K/uL (0.11-0.59) 10/24/21 22:56 Eos # (Auto) 0.17 K/uL (0-0.5) 10/24/21 22:56 Baso # (Auto) 0.02 K/uL (0-0.2) 10/24/21 22:56 Immature Gran # (Auto) 0.01 K/uL (0.00-0.02) 10/24/21 22:56 APTT 26.9 Seconds (21.0-31.0) 10/24/21 23:42 PTT Ratio 1.0 10/24/21 23:42 Sodium 136 mmol/L (136-145) 10/24/21 22:56 Potassium 4.4 mmol/L (3.5-5.1) 10/24/21 22:56 Chloride 101 mmol/L (98-107) 10/24/21 22:56 Carbon Dioxide 27 mmol/L (21-32) 10/24/21 22:56 Anion Gap 8 (3-11) 10/24/21 22:56 BUN 17 mg/dl (6-23) 10/24/21 22:56 Creatinine 0.92 mg/dl (0.6-1.4) 10/24/21 22:56 Est Cr Clr Drug Dosing 92.9 ml/min 10/24/21 22:56 Est GFR ( Amer) 97.3 ml/min 10/24/21 22:56 Est GFR (Non-Af Amer) 84.0 ml/min 10/24/21 22:56 BUN/Creatinine Ratio 18.5 (10-20) 10/24/21 22:56 Glucose 153 mg/dl (70-99(Fasting)) H 10/24/21 22:56 Lactate 1.9 mmol/L (0.4-2.0) 10/24/21 22:56 Calcium 8.3 mg/dl (8.5-10.1) L 10/24/21 22:56 Total Bilirubin 0.7 mg/dl (0.2-1.0) 10/24/21 22:56 AST 11 U/L (13-39) L 10/24/21 22:56 ALT 10 U/L (7-52) 10/24/21 22:56 Alkaline Phosphatase 65 U/L (34-104) 10/24/21 22:56 Troponin I < 0.03 ng/ml (0-0.04) 10/24/21 22:56 Total Protein 6.3 gm/dl (6.0-8.3) 10/24/21 22:56 Albumin 3.7 gm/dl (3.4-5.0) 10/24/21 22:56 Globulin 2.6 gm/dl (2.5-4.0) 10/24/21 22: Albumin/Globulin Ratio 1.4 (0.9-2) 10/24/21 22:56 Urine Color Yellow 10/25/21 00:00 Urine Appearance Clear (Clear) 10/25/21 00:00 Urine pH 8.5 (4.5-7.5) H 10/25/21 00:00 Ur Specific [place] 1.020 (1.000-1.030) 10/25/21 00:00 Urine Protein Negative (Negative) 10/25/21 00:00 Urine Glucose (UA) Negative (Negative) 10/25/21 00:00 Urine Ketones Negative (Negative) 10/25/21 00:00 Urine Blood Negative (Negative) 10/25/21 00:00 Urine Nitrite Negative (Negative) 10/25/21 00:00 Urine Bilirubin Negative (Negative) 10/25/21 00:00 Urine Urobilinogen Negative (Negative) 10/25/21 00:00 Ur Leukocyte Esterase Negative (Negative) 10/25/21 00:00 Influ A Molecular Assay Negative (Negative) 10/24/21 22:52 Influ B Molecular Assay Negative (Negative) 10/24/21 22:52 SARS-CoV-2, RNA, NAAT NEGATIVE (NEGATIVE) 10/24/21 22:30 Code Status & VTE Plan Code Status Full code VTE Prophylaxis Plan VTE Prophylaxis will be ordered: Yes PG Care Time/CCT Total # of Minutes Spent Total Time Spent with Patient: Total time spent is greater than 50% in coordination of care (as documented) at patient's floor/unit and/or counseling patient: Coding Level of Care Code 02628 Initial In Care Lvl 3 Diagnoses Shortness of breath R06.02 Chest pain R07.9 Dyslipidemia (high LDL; low HDL) E78.5 Hypertension I10 Chronic systolic CHF (congestive heart failure) I50.22 CAD, multiple vessel I25.10 Ischemic cardiomyopathy I25.5 History of pulmonary embolism Z86.711 Cauda equina syndrome G83.4 Neurogenic bowel K59.2 Neurogenic bladder N31.9 Non-ST elevation TN (NSTEMI) I21.4 Hypothyroidism E03.9 Hypothyroidism type: unspecified Acid reflux K21.9 Diabetes E11.9 (1) Hypothyroidism Hypothyroidism type: unspecified Qualified Code(s): E03.9 - Hypothyroidism, unspecified
[2021-10-25 00:04] LABS: Partial Thromboplastin Time 26.9 Seconds (21.0-31.0)
[2021-10-25] MEDS: NITROGLYCERIN/D5W 100MCG/ML 250 ML IV SCH ×2 (00:14→01:07)
[2021-10-25 00:20] LABS: Appearance Urine Clear (Clear); Bilirubin Urine Negative (Negative); Blood Urine Negative (Negative); Color Urine Yellow; Glucose Urine UA Negative (Negative); Ketones Urine Negative (Negative); Leukocyte Esterase Urine Negative (Negative); Nitrite Urine Negative (Negative); Protein Urine Negative (Negative); Urobilinogen Urine Negative (Negative); pH Urine 8.5 (4.5-7.5)
--- NOTE | 2021-10-25 00:59 | Emergency Department Note ---
Impression & Plan Diabetes, CAD, multiple vessel, Chest pain ED Provider Note CHIEF COMPLAINT: Chest pain HISTORY OF PRESENT ILLNESS: This 71 yo male patient presents to the emergency department with complaints of substernal chest pain and left arm heaviness/numbness. Patient states he has a complicated cardiac history with CAD. He was told he would not be amenable to PCI. Patient was transferred to [facility] where he later declined CABG. Patient is noted to have a fever and states he self catheterizes several times daily due to history of cauda equina. Patient denies any coughing or shortness of breath. He states he took nitroglycerin several times yesterday evening and then this morning was feeling better. This evening the patient's pain is heavy. Patient is asking for something for pain. REVIEW OF SYSTEMS: A review of systems was performed with positives and pertinent negatives listed in the history of present illness. 10 systems were reviewed and are otherwise negative. ALLERGIES: see below MEDICATIONS: see below PMH: see below SOCIAL HISTORY: see below DDx: Cardiac ischemia, aortic dissection, pulmonary embolism, pneumothorax, pneumonia, pericarditis, myocarditis, esophageal rupture, GERD, cholecystitis, pancreatitis, musculoskeletal, as well as other pathologies. PHYSICAL EXAM: Vital signs reviewed. General: Chronically ill-appearing 71-year-old male, uncomfortable HEENT: No scleral icterus, PERRLA, neck supple. Atraumatic. Cardiovascular: Rapid and irregular, no extra sounds. Pulmonary: Clear to auscultation bilaterally, normal work of breathing. Abdomen: Soft, nontender, nondistended, positive bowel sounds. Musculoskeletal: Atraumatic, no peripheral edema. Neurologic: Patient awake alert and oriented x 3, speech is clear Skin: Warm, dry, no rash EMERGENCY DEPARTMENT COURSE/MDM: This patient was evaluated and appeared to be in some discomfort. IV access was obtained and laboratory work was drawn. Patient's initial EKG revealed subtle ST depression in the anterior leads. Patient had an episode of severe chest discomfort and an EKG was repeated. Is felt that the patient is likely in a sinus tachycardia at 120 bpm. He was m edicated with IV metoprolol for rate control. Patient was started on IV heparin and nitroglycerin. Dr. Deutsch of interventional cardiology was paged. He felt medical management was the best strategy given the most recent cardiac catheterization report and the severity of his disease. Patient was started on a nitroglycerin drip as well as a heparin drip. He did receive a dose of IV fentanyl and Zofran for his discomfort. He did take aspirin 324 mg by mouth earlier this morning. His last dose of Eliquis was earlier this morning, he did not take his evening dose. Patient and were informed of the findings and plan. Dr. Frey of the hospitalist service was consulted for admission and further management. MONITORING: An order for cardiac monitoring was placed and the patient is noted to be in a NSR at 102 beats per minute. RADIOLOGY: See below EKG: #1 Sinus tachycardia [address] change/mild depression noted in the anterior lateral leads, no PVC, no PAC. QTc is 467. #2 Likely sinus tachycardia at [address] depression and T wave abnormality noted in the anterior leads. No PVC, no PAC. Normal axis. #3 EKG to my interpretation reveals a sinus tachycardia at bpm. Significant ST and T wave abnormalities noted in the inferior the anterior lateral leads. QTC is 323, normal QRS. DISPOSITION: [facility] ICU I have personally spent 60 minutes of critical care time in the direct management of this patient. This was a life/limb threatening event. This 60 minutes is in excess of all separately billable procedures. Past Med/Surg History Medical History Allergic rhinitis CAD, multiple vessel Cauda equina syndrome (12/2020) Chronic systolic CHF (congestive heart failure) Constipation Diabetes Dyslipidemia (high LDL; low HDL) GERD (gastroesophageal reflux disease) Gout History of pulmonary embolism (01/23/21) Hx of testicular cancer Hypertension Hypothyroidism Ischemic cardiomyopathy Lumbar disc herniation with radiculopathy Neurogenic bladder Neurogenic bowel Spinal stenosis, lumbar region with neurogenic claudication Urinary retention Surgical History Hx of total hip arthroplasty S/P orchiopexy Status post lumbar surgery (01/18/21) Family History Father Lung cancer Cancer brain Mother Diabetes Uncle Prostate cancer Grandmother (Paternal) Stroke Family/Other Colorectal cancer Breast cancer Myocardial infarction Grandfather (Maternal) Rheumatoid arthritis Denies family history of Ovarian cancer Social History Smoking Status: Never smoker Tobacco Type: Cigarettes Age Quit Using Tobacco: 65; packs per day: 0.5; Years Smoked: 24; Cigarettes Per Day: just a few per week; Second Hand Exposure: No; Hx Alcohol Use: No Hx Substance Use: No Preferred Language: Austrian Communication Ability: Effective Visual Impairment: No Limitations Hearing Ability: Normal Customer Care Manager Required: No Beliefs That Will Affect Care: None marital status: Current Living Situation: Spouse current occupational status: retired How many Children do You have: 2 How many Children do You have Comment: live local, children and able to help with care as needed. Feels Safe at Home: Yes Safety Concerns: Feels Safe At This Time Childhood Exposure to Second-Hand Smoke: No Diet Comment: eats what he wants to , has tried to start eating "healthier" caffeine: Yes during the past year weight has: increased > 10 lbs Dental Care, Regularly: No Physical Activity Frequency: Other Physical Activity Frequency Comment: house chores Seatbelt Use: never Sunscreen Use: No Assistive Devices: None Allergies Allergies Allergy/AdvReac Type Severity Reaction Status Date / Time bee venom protein (honey bee) Allergy Severe EXTREME Verified 10/24/21 23:05 SWELLING--STUNG ON HAND, ARM SWELLED TO SHOULDER. Penicillins Allergy Intermediate HIGH Verified 10/24/21 23:05 FEVER, RASH (NOTED ALLERGIC TO "ANY-CILLIN" Home Meds Home Medications Medication Instructions Recorded Confirmed aspirin 81 mg tablet,delayed 81 mg PO QAM 05/02/21 10/24/21 release acetaminophen 500 mg tablet 1,000 mg PO Q6H PRN 05/17/21 10/24/21 (Tylenol Extra Strength) cranberry 500 mg capsule 500 mg PO DAILY cap 07/26/21 10/24/21 sennosides 8.6 mg capsule (senna) 8.6 mg PO DAILY 07/26/21 10/24/21 Saccharomyces boulardii 250 mg 250 mg PO BID 10/24/21 10/24/21 capsule (Probiotic (S.boulardii)) Previous Rx's Medication Instructions Recorded diaper,brief,adult,disposable #126 ea 03/07/21 Roho Cushion #1 ea 03/17/21 Mattress (Air or other) #1 ea 05/03/21 atorvastatin 80 mg tablet 80 mg PO QAM #90 tab 06/15/21 cetirizine 10 mg tablet 10 mg PO QAM PRN #90 tab 06/15/21 glimepiride 2 mg tablet 2 mg PO QAM #90 tab 06/15/21 apixaban 5 mg tablet 5 mg PO BID #60 tab 06/20/21 furosemide 40 mg tablet 40 mg PO QAM #90 tab 07/06/21 famotidine 40 mg tablet 40 mg PO HS #90 tab 07/14/21 metformin 1,000 mg tablet 1,000 mg PO BID #180 tab 07/20/21 gabapentin 300 mg capsule 300 mg PO TID #180 cap 07/27/21 sacubitril 24 mg-valsartan 26 mg 1 tab PO BID #60 tab 08/09/21 tablet (Entresto) allopurinol 300 mg tablet 300 mg PO QAM #90 tab 08/30/21 levothyroxine 100 mcg tablet 100 mcg PO .COMPLEX #102 tab 09/04/21 nitroglycerin 0.4 mg sublingual 0.4 mg SUBLINGUAL DIRECTED PRN 09/04/21 tablet #30 tab omeprazole 20 mg capsule,delayed 20 mg PO QAM #90 cap 09/04/21 release isosorbide mononitrate 30 mg 60 mg PO QAM #90 tab 09/11/21 tablet,extended release 24 hr nitrofurantoin 100 mg PO BID 7 Days #14 cap 10/19/21 monohydrate/macrocrystals 100 mg capsule (Macrobid) metoprolol succinate 50 mg 50 mg PO DAILY #90 tab 10/24/21 tablet,extended release 24 hr Results & Data (ED) Vital Signs Vital Signs - 24 hr 10/24/21 22:11 10/24/21 23:35 Temperature 38.2 C H Temperature Source Oral Pulse Rate 119 H Pulse Rate [Right Finger] 107 H Pulse Rhythm Regular Pulse Strength Normal Respiratory Rate 20 16 Respiratory Effort / Characteristics Non-Labored Respiratory Depth Normal Respiratory Pattern Regular Blood Pressure 140/91 Blood Pressure [Right Arm] 148/98 H Blood Pressure Mean 107 Blood Pressure Mean [Right Arm] 114 Blood Pressure Position Lying Blood Pressure Position [Right Arm] Lying Pulse Oximetry 95 98 Oxygen Delivery Method Room Air Room Air Sepsis Recent Fever Within 48 Hours Yes Sepsis New/Unexplained Change in Mental Status No Sepsis Action Taken by Nursing No Action Required Laboratory Data Result diagrams: 10/24/21 22:56 10/24/21 22:56 Lab Results 10/24/21 10/24/21 10/24/21 Range/Units 22:30 22:52 22:56 WBC (4.8-10.8) K/uL RBC (4.7-6.1) M/uL Hgb (14.0-18.0) g/dL Hct (42-52) % MCV (80-100) fL MCH (25-34) pg MCHC (32-36) g/dL RDW Std Deviation (36.4-46.3) fL RDW Coeff of Radha (11.5-14.5) % Plt Count (130-400) K/uL MPV (7.4-10.4) fL Immature Gran % (Auto) % Neut % (Auto) % Lymph % (Auto) % [place] % (Auto) % Eos % (Auto) % Baso % (Auto) % Neut # (Auto) (1.4-6.5) K/uL Lymph # (Auto) (1.2-3.4) K/uL [place] # (Auto) (0.11-0.59) K/uL Eos # (Auto) (0-0.5) K/uL Baso # (Auto) (0-0.2) K/uL Immature Gran # (Auto) (0.00-0.02) K/uL APTT (21.0-31.0) Seconds PTT Ratio Sodium 136 (136-145) mmol/L Potassium 4.4 (3.5-5.1) mmol/L Chloride 101 (98-107) mmol/L Carbon Dioxide 27 (21-32) mmol/L Anion Gap 8 (3-11) BUN 17 (6-23) mg/dl Creatinine 0.92 (0.6-1.4) mg/dl Est Cr Clr Drug Dosing 92.9 ml/min Est GFR ( Amer) 97.3 ml/min Est GFR (Non-Af Amer) 84.0 ml/min BUN/Creatinine Ratio 18.5 (10-20) Glucose 153 H (70-99(Fasting)) mg/dl Lactate (0.4-2.0) mmol/L Calcium 8.3 L (8.5-10.1) mg/dl Total Bilirubin 0.7 (0.2-1.0) mg/dl AST 11 L (13-39) U/L ALT 10 (7-52) U/L Alkaline Phosphatase 65 (34-104) U/L Troponin I < 0.03 (0-0.04) ng/ml Total Protein 6.3 (6.0-8.3) gm/dl Albumin 3.7 (3.4-5.0) gm/dl Globulin 2.6 (2.5-4.0) gm/dl Albumin/Globulin Ratio 1.4 (0.9-2) Influ A Molecular Assay Negative (Negative) Influ B Molecular Assay Negative (Negative) SARS-CoV-2, RNA, NAAT NEGATIVE (NEGATIVE) 10/24/21 10/24/21 10/24/21 Range/Units 22:56 22:56 23:42 WBC 8.25 (4.8-10.8) K/uL RBC 3.74 L (4.7-6.1) M/uL Hgb 11.4 L (14.0-18.0) g/dL Hct 34.3 L (42-52) % MCV 91.7 (80-100) fL MCH 30.5 (25-34) pg MCHC 33.2 (32-36) g/dL RDW Std Deviation 45.5 (36.4-46.3) fL RDW Coeff of Radha 13.9 (11.5-14.5) % Plt Count 252 (130-400) K/uL MPV 10.8 H (7.4-10.4) fL Immature Gran % (Auto) 0.1 % Neut % (Auto) 84.1 % Lymph % (Auto) 9.9 % [place] % (Auto) 3.6 % Eos % (Auto) 2.1 % Baso % (Auto) 0.2 % Neut # (Auto) 6.93 H (1.4-6.5) K/uL Lymph # (Auto) 0.82 L (1.2-3.4) K/uL [place] # (Auto) 0.30 (0.11-0.59) K/uL Eos # (Auto) 0.17 (0-0.5) K/uL Baso # (Auto) 0.02 (0-0.2) K/uL Immature Gran # (Auto) 0.01 (0.00-0.02) K/uL APTT 26.9 (21.0-31.0) Seconds PTT Ratio 1.0 Sodium (136-145) mmol/L Potassium (3.5-5.1) mmol/L Chloride (98-107) mmol/L Carbon Dioxide (21-32) mmol/L Anion Gap (3-11) BUN (6-23) mg/dl Creatinine (0.6-1.4) mg/dl Est Cr Clr Drug Dosing ml/min Est GFR ( Amer) ml/min Est GFR (Non-Af Amer) ml/min BUN/Creatinine Ratio (10-20) Glucose (70-99(Fasting)) mg/dl Lactate 1.9 (0.4-2.0) mmol/L Calcium (8.5-10.1) mg/dl Total Bilirubin (0.2-1.0) mg/dl AST (13-39) U/L ALT (7-52) U/L Alkaline Phosphatase (34-104) U/L Troponin I (0-0.04) ng/ml Total Protein (6.0-8.3) gm/dl Albumin (3.4-5.0) gm/dl Globulin (2.5-4.0) gm/dl Albumin/Globulin Ratio (0.9-2) Influ A Molecular Assay (Negative) Influ B Molecular Assay (Negative) SARS-CoV-2, RNA, NAAT (NEGATIVE) Administered Medications Sodium Chloride (Nss 1000ml) 1,000 mls @ 125 mls/hr IV .Q8H STA Stop: 10/25/21 06:18 Last Admin: 10/24/21 23:12 Dose: 125 mls/hr Documented by: [id number] Nitroglycerin/Dextrose (Nitroglycerin/D5w 100 Mcg/Ml) 250 mls @ 3 mls/hr IV .Q24H [facility]; Protocol Stop: 11/23/21 23:29 Last Admin: 10/25/21 01:07 Dose: Not Given Documented by: [id number] Admin: 10/25/21 00:14 Dose: Not Given Documented by: [id number] Heparin Sodium/Dextrose (Heparin Sodium/Dextrose) 25,000 units in 500 mls @ 20 mls/hr IV .Q24H [facility]; Protocol Stop: 11/23/21 23:44 Last Admin: 10/25/21 00:11 Dose: 1,000 units/hr, 20 mls/hr Documented by: [id number] Cosigned by: [id number] Discontinued Medications Fentanyl Citrate (Fentanyl Citrate 100 Mcg/2 Ml Vial) 50 mcg IV NOW STA Stop: 10/24/21 22:57 Last Admin: 10/24/21 23:12 Dose: 100 mcg Documented by: [id number] Heparin Sodium (Porcine) (Heparin Sod (Porcine) 1000 Unit/Ml) 1 units IV NOW ONE Stop: 10/24/21 23:42 Last Admin: 10/25/21 00:10 Dose: 3,000 units Documented by: [id number] Cosigned by: [id number] Heparin Sodium/Dextrose (Heparin Iv Adult Wt-Based Low-Dose With Bolus Protocol) 1 ea IV NOW STA; Protocol Stop: 10/24/21 23:24 Last Admin: 10/25/21 00:09 Dose: 1 ea Documented by: [id number] Sodium Chloride (Nss) 500 mls @ 999 mls/hr IV .Q31M STA Stop: 10/24/21 22:49 Last Infusion: 10/24/21 23:14 Dose: 0 mls/hr Documented by: [id number] Admin: 10/24/21 22:26 Dose: 999 mls/hr Documented by: [id number] Acetaminophen (Ofirmev) 1,000 mg in 100 mls @ 400 mls/hr IV NOW STA Stop: 10/24/21 22:33 Last Infusion: 10/24/21 23:14 Dose: 0 mls/hr Documented by: [id number] Admin: 10/24/21 22:26 Dose: 400 mls/hr Documented by: [id number] Ceftriaxone Sodium (Rocephin) 2,000 mg in 70 mls @ 140 mls/hr IV NOW STA Stop: 10/24/21 23:58 Last Infusion: 10/25/21 01:01 Dose: 0 mls/hr Documented by: [id number] Admin: 10/25/21 00:09 Dose: 140 mls/hr Documented by: [id number] Metoprolol Tartrate (Metoprolol Tartrate 1 Mg/Ml Vial) 5 mg IV Q5M STA Stop: 02/01/22 23:06 Last Admin: 10/24/21 23:12 Dose: 5 mg Documented by: [id number] Miscellaneous (Stat Iv Infusion Titration Per Protocol) 1 ea N/A NOW STA Stop: 10/24/21 23:24 Last Admin: 10/25/21 00:14 Dose: 1 ea Documented by: [id number] Nitroglycerin (Nitroglycerin 2% Ointment 30gm Tube) 1 inch EXT NOW ONE Stop: 10/24/21 22:49 Last Admin: 10/24/21 23:00 Dose: 1 inch Documented by: [id number] Ondansetron HCl (Ondansetron Inj 2 Mg/Ml 2 Ml Vial) 4 mg IV NOW STA Stop: 10/24/21 22:20 Last Admin: 10/24/21 22:26 Dose: 4 mg Documented by: [id number] Ondansetron HCl (Ondansetron Inj 2 Mg/Ml 2 Ml Vial) 4 mg IV NOW STA Stop: 10/24/21 22:57 Last Admin: 10/24/21 23:12 Dose: 4 mg Documented by: [id number] Discharge Plan Visit Data Chief Complaint: Chest Pain Stated Complaint: CHEST DISCOMFORT ED Provider: Jazmín Cobb Discharge Problem: Diabetes, CAD, multiple vessel, Chest pain Patient Disposition: Admitted As Inpatient Condition: Good Discharge Instructions Interventions: ED Discharge Assessment Last Done: 10/25/21 00:30
[2021-10-25] MEDS ORDERED: ICU PROTOCOL FOR HYPERGLYCEMIA PRN (01:08)
[2021-10-25] MEDS ORDERED: CETIRIZINE HCL 10 MG TABLET PO PRN (01:08)
[2021-10-25] MEDS ORDERED: ACETAMINOPHEN 500 MG TAB PO PRN (01:32)
[2021-10-25 03:29] LABS: Basophils # (auto) 0.01 K/uL (0-0.2); Basophils % (auto) 0.1 %; Eosinophils # (auto) 0.14 K/uL (0-0.5); Hematocrit (blood only) 34.2 % (42-52); Hemoglobin 11.3 g/dL (14.0-18.0); Immature Granulocytes # (auto) 0.01 K/uL (0.00-0.02); Immature Granulocytes % (auto) 0.1 %; Lymphocytes # (auto) 0.57 K/uL (1.2-3.4); Lymphocytes % (auto) 8.1 %; Mean Corpuscular Hemoglobin 30.4 pg (25-34); Mean Corpuscular Volume 91.9 fL (80-100); Mean Platelet Volume 11.6 fL (7.4-10.4); Monocytes % (auto) 2.9 %; Neutrophils # (auto) 6.08 K/uL (1.4-6.5); Neutrophils % (auto) 86.8 %; Platelet Count 253 K/uL (130-400); RDW Coefficient of Variation 13.9 % (11.5-14.5); RDW Standard Deviation 45.8 fL (36.4-46.3); Red Blood Count 3.72 M/uL (4.7-6.1); White Blood Count 7.01 K/uL (4.8-10.8)
[2021-10-25 03:38] LABS: Troponin I 0.09 ng/ml (0-0.04)
[2021-10-25 03:41] LABS: INR 1.1 (0.9-1.1); Partial Thromboplastin Ratio 1.6; Partial Thromboplastin Time 41.6 Seconds (21.0-31.0)
[2021-10-25 03:47] LABS: Albumin Globulin Ratio 1.4 (0.9-2); Albumin Level 3.7 gm/dl (3.4-5.0); BUN Creatinine Ratio 18.7 (10-20); Bilirubin,Total 0.5 mg/dl (0.2-1.0); Calcium 8.3 mg/dl (8.5-10.1); Creatinine Clr Calc Pharmacy 93.1 ml/min; Est GFR (African American) 98.6 ml/min; Est GFR (Non-African American) 85.1 ml/min; Globulin 2.6 gm/dl (2.5-4.0); Magnesium 1.3 mg/dl (1.7-2.4); Potassium 4.7 mmol/L (3.5-5.1); Total Protein 6.3 gm/dl (6.0-8.3)
[2021-10-25] MEDS: NITROGLYCERIN SL 0.4 MG/TAB TAB SL PRN ×4 (04:31→05:20)
[2021-10-25] MEDS ORDERED: MoRPHine SULFATE 2 MG/ML CARP IV STA (05:25)
[2021-10-25] MEDS ORDERED: MoRPHine SULFATE 2 MG/ML CARP ONE (05:27)
[2021-10-25] MEDS ORDERED: METOPROLOL TARTRATE 1 MG/ML VIAL IV ONE ×2 (05:42→05:45)
[2021-10-25] MEDS ORDERED: METOPROLOL TARTRATE 1 MG/ML VIAL IV STA (06:15)
[2021-10-25] MEDS ORDERED: LEVOTHYROXINE SODIUM 100 MCG TABLET PO SCH (06:30)
[2021-10-25] MEDS ORDERED: SODIUM CHLORIDE 0.9% 500 ML IV SCH (06:30)
--- NOTE | 2021-10-25 07:11 | XRay Report ---
XR chest 1V portable CLINICAL HISTORY: Chest pain. COMPARISON STUDY: 08/21/2021 TECHNIQUE: 1 view of the chest FINDINGS: Single frontal view of the chest demonstrates the cardiomediastinal silhouette to be within normal li mits. There is a decreased inspiratory effort with elevation of the hemidiaphragms and crowding of th e bronchovascular markings at the lung bases and centrally. The lungs are clear of alveolar opacities . There is no evidence for pleural effusion. There is no evidence for vascular congestion. There is n o acute osseous pathology. IMPRESSION: There is a decreased inspiratory effort with otherwise no acute chest disease. ACT 112: Negative or not required by law. Electronically signed by: Marquis Ramires M.D. 10/25/2021 7:10 AM
[2021-10-25 07:43] LABS: Partial Thromboplastin Ratio 1.3
[2021-10-25] MEDS ORDERED: FUROSEMIDE 40 MG TAB PO SCH (09:00)
[2021-10-25] MEDS ORDERED: METOPROLOL SUCC 50MG EXT REL TAB PO SCH (09:00)
[2021-10-25] MEDS ORDERED: ASPIRIN 81 MG ECTAB PO SCH (09:00)
[2021-10-25] MEDS ORDERED: PANTOprazole 40 MG TAB PO SCH (09:00)
[2021-10-25] MEDS ORDERED: VALSARTAN/SACUBITRIL 26/24MG TAB PO SCH (09:00)
[2021-10-25] MEDS ORDERED: MAGNESIUM OXIDE 400 MG TAB PO SCH (09:00)
[2021-10-25] MEDS ORDERED: ATORVASTATIN 40 MG TAB PO SCH (09:00)
[2021-10-25] MEDS ORDERED: allopurinoL 300 MG TAB PO SCH (09:00)
[2021-10-25] MEDS ORDERED: GABAPENTIN 300 MG CAP PO SCH (09:00)
[2021-10-25] MEDS ORDERED: SENNA 8.6 MG TAB PO SCH (09:00)
[2021-10-25] MEDS ORDERED: HEPARIN SOD (PORCINE) 1000 UNIT/ML IV ONE (09:15)
[2021-10-25] MEDS: MAGNESIUM SULFATE / D5W 1 GM/100 ML BAG IV SCH ×2 (09:32→11:38)
--- NOTE | 2021-10-25 09:33 | Cardiology Consultation ---
Date of Consultation October 25, 2021 Assessment & Plan (1) Acute coronary syndrome: (2) CAD, multiple vessel: (3) Hypertension: (4) Dyslipidemia (high LDL; low HDL): (5) Ischemic cardiomyopathy: (6) Chronic systolic CHF (congestive heart failure): ASSESSMENT/PLAN: 1. Acute coronary syndrome: Presenting with acute coronary syndrome/likely NSTEMI. Has had dynamic ST changes, specifically in LAD territory. Known multivessel CAD for which CABG had been recommended in the past and has [place] [facility] [place] Currently no significant angina. Systolic blood pressure was in the 90s during evaluation. If blood pressure improves, could administer nitroglycerin drip for symptom control. If has recurrent episode not amenable to medical therapy, would consider balloon pump. Recommend urgent transfer to CT surgery capable center. He is agreeable. Continue aspirin. Continue heparin drip. Continue beta-kan and high-intensity statin therapy. 2. Multivessel CAD: Has been evaluated [place] [facility] [place] CABG was recommended but he declined at that time. He is now agreeable. Dr. Stevens of CT surgery was contacted and has graciously accepted him in transfer. Continue medical therapy as above. 3. Ischemic cardiomyopathy: LV systolic function appeared improved on September 2021 echo. LV systolic function appears mildly reduced on current study during this hospitalization on preliminary review. Formal review is pending. Continue beta-kan and Entresto. 4. Chronic systolic CHF/heart failure with mid range EF: He appears euvolemic on exam. Follows in the Heart failure program. 5. Dyslipidemia: Continue high-intensity statin therapy. 6. Hypertension: Currently mildly hypotensive. Continue home dose of beta- kan. Has had issues in the past with orthostatic symptoms. Continue Entresto as tolerated. 7. Disposition: Recommend [place] [facility] [place] and consideration of CABG. He has been accepted by Dr. Stevens of CT surgery. His was updated via telephone. Dr. Zabala and I have discussed patient care. Recommended transportation via helicopter if available. ICU staff notified of transfer. Highly complex medical issues. Thank you for allowing me to participate in the care of your patient. Please call for any other questions or concerns. Sincerely, Jn Casillas M.D. History of Present Illness Reason for Consultation: ACS Requesting Physician: Filemon Quiroga MD Attending Physician: Filemon Quiroga MD History of Present Illness Mr. Camejo is a very pleasant 71-year-old gentleman with a history significant for multivessel CAD, ischemic cardiomyopathy, systolic CHF, cauda equina syndrome following L4/L5 injury in December of 2020, hypertension, dyslipidemia, type 2 diabetes and metastatic testicular cancer (diagnosed at age 26). He also has a history of right upper lobe PE following surgery in December of 2020. He was hospitalized on 04/24/2021 for UTI/bacteremia/pyelonephritis but was found to have elevated troponins, peaking at 12.6. Upon questioning, he had been experiencing exertional angina prior to hospitalization. Echo demonstrated ischemic cardiomyopathy. Cardiac catheterization demonstrated severe multivessel CAD. He declined transfer for bypass and was discharged home for outpatient CT surgery evaluation. He was readmitted on 05/02/2021 with angina and [place] [facility] [place] CABG was offered but he declined and also declined PCI. Palliative Care was consulted. He was readmitted on 05/17/2021 with syncope, felt to be due to hypovolemia and polypharmacy. He was hyponatremic. He received fluids and was discharged on 05/21/2021. He has had the following studies/procedures: 1. Echo 04/25/2021 [facility]: Normal LV size. EF 35-40%. Severe hypokinesis to akinesis of the mid to distal inferior wall. Dyskinetic apex. Otherwise, mild global hypokinesis. Moderate LVH. No significant valvular abnormalities. RVSP 26. 2. Cardiac catheterization 04/28/2021 [facility]: Distal LM CA 90%. Ostial LAD 80%. Mid LAD 50-70%. D2 ostial/proximal 70-80%. Co dominant system. Ostial circumflex 70%. Mid circumflex 40%. Distal circumflex 70%. Large OM1 ostial/proximal 50% and mid 90-95% involving smaller branch. Circumflex PL proximal 50%. Proximal RCA 90%. Early mid RCA 80-90%. Distal RCA 90-95% diffuse CAD. [id number] collaterals. LVEDP 18. Right radial artery moderate to severe stenosis but able to complete catheterization via the right radial artery. 3. Echo 10/19/2021: Normal LV size, wall motion, systolic function. EF 55-60%. Cannot exclude wall motion abnormalities given poor/fair image quality. Mild LVH. No significant valvular abnormalities. IV echo contrast was not available. He was admitted on 10/24/2021 with unstable angina/acute coronary syndrome. He has been experiencing angina occurring at night, waking him from sleep for the past several days. He would take nitroglycerin with quick resolution of his symptoms within minutes and then would go back to sleep. He would then be awakened several times throughout the night requiring further nitroglycerin. He has used up to 6 nitroglycerine doses throughout the night, each for individual episodes of angina. Angina was described as a substernal chest discomfort that would radiate to the left arm and occasionally to the right arm. On 1 occasion he was diaphoretic but no significant shortness of breath. He admits that on 10/23/2021, he had more episodes that intermittently occurred throughout the day yesterday, prompting hospitalization. ECG has demonstrated worsening ST depressions through the precordial leads. He had another episode at approximately 5:00 a.m. this morning that resolved with nitroglycerin. He has had some intermittent hypotension with nitroglycerin administration while here. Nitroglycerin drip had been ordered but systolic blood pressure was in the 90s and he had no further angina this morning when he was personally evaluated. He denies orthopnea, syncope, palpitations, or bleeding such as melena, hematochezia, or hematuria. He has been having issues with recurrent UTI. He admits to near-syncope during severe episodes of angina. In the past he had declined CABG due to cauda equina syndrome, but he is agreeable to move forward with revascularization at this point. Review of systems: As above. Family history:No known premature CAD. Mother had diabetes. Father at 93. Social history: Quit smoking in approximately 2016 after 10-20 pack years. No alcohol. Lives at home with his . Has a son and a daughter. Worked as a fabrication mig welder. He enjoys hunting and plans to [place] out of his vehicle. There was no family/friend at the bedside this morning. Allergies Allergy/AdvReac Type Severity Reaction Status Date / Time bee venom protein (honey bee) Allergy Severe EXTREME Verified 10/24/21 23:05 SWELLING--STUNG ON HAND, ARM SWELLED TO SHOULDER. Penicillins Allergy Intermediate HIGH Verified 10/24/21 23:05 FEVER, RASH (NOTED ALLERGIC TO "ANY-CILLIN" Home Medications Medication Instructions Recorded Confirmed Type diaper,brief,adult,disposable #126 ea 03/07/21 09/21/21 Rx Roho Cushion #1 ea 03/17/21 09/21/21 Rx aspirin 81 mg tablet,delayed 81 mg PO QAM 05/02/21 10/24/21 History release Mattress (Air or other) #1 ea 05/03/21 09/21/21 Rx acetaminophen 500 mg tablet 1,000 mg PO Q6H PRN 05/17/21 10/24/21 History (Tylenol Extra Strength) atorvastatin 80 mg tablet 80 mg PO QAM #90 tab 06/15/21 10/24/21 Rx cetirizine 10 mg tablet 10 mg PO QAM PRN #90 tab 06/15/21 10/24/21 Rx glimepiride 2 mg tablet 2 mg PO QAM #90 tab 06/15/21 10/24/21 Rx apixaban 5 mg tablet 5 mg PO BID #60 tab 06/20/21 10/24/21 Rx furosemide 40 mg tablet 40 mg PO QAM #90 tab 07/06/21 10/24/21 Rx famotidine 40 mg tablet 40 mg PO HS #90 tab 07/14/21 10/24/21 Rx metformin 1,000 mg tablet 1,000 mg PO BID #180 tab 07/20/21 10/24/21 Rx cranberry 500 mg capsule 500 mg PO DAILY cap 07/26/21 10/24/21 History sennosides 8.6 mg capsule (senna) 8.6 mg PO DAILY 07/26/21 10/24/21 History gabapentin 300 mg capsule 300 mg PO TID #180 cap 07/27/21 10/24/21 Rx sacubitril 24 mg-valsartan 26 mg 1 tab PO BID #60 tab 08/09/21 10/24/21 Rx tablet (Entresto) allopurinol 300 mg tablet 300 mg PO QAM #90 tab 08/30/21 10/24/21 Rx levothyroxine 100 mcg tablet 100 mcg PO .COMPLEX #102 tab 09/04/21 10/24/21 Rx nitroglycerin 0.4 mg sublingual 0.4 mg SUBLINGUAL DIRECTED PRN 09/04/21 10/24/21 Rx tablet #30 tab omeprazole 20 mg capsule,delayed 20 mg PO QAM #90 cap 09/04/21 10/24/21 Rx release isosorbide mononitrate 30 mg 60 mg PO QAM #90 tab 09/11/21 10/24/21 Rx tablet,extended release 24 hr nitrofurantoin 100 mg PO BID 7 Days #14 cap 10/19/21 10/24/21 Rx monohydrate/macrocrystals 100 mg capsule (Macrobid) Saccharomyces boulardii 250 mg 250 mg PO BID 10/24/21 10/24/21 History capsule (Probiotic (S.boulardii)) metoprolol succinate 50 mg 50 mg PO DAILY #90 tab 10/24/21 10/24/21 Rx tablet,extended release 24 hr Patient History Medical History Allergic rhinitis CAD, multiple vessel Cauda equina syndrome (12/2020) Chronic systolic CHF (congestive heart failure) Constipation Diabetes Dyslipidemia (high LDL; low HDL) GERD (gastroesophageal reflux disease) Gout History of pulmonary embolism (01/23/21) Hx of testicular cancer Hypertension Hypothyroidism Ischemic cardiomyopathy Lumbar disc herniation with radiculopathy Neurogenic bladder Neurogenic bowel Spinal stenosis, lumbar region with neurogenic claudication Urinary retention Surgical History Hx of total hip arthroplasty S/P orchiopexy Status post lumbar surgery (01/18/21) Family History Father Lung cancer Cancer brain Mother Diabetes Uncle Prostate cancer Grandmother (Paternal) Stroke Family/Other Colorectal cancer Breast cancer Myocardial infarction Grandfather (Maternal) Rheumatoid arthritis Denies family history of Ovarian cancer Social History Smoking Status: Never smoker Tobacco Type: Cigarettes Age Quit Using Tobacco: 65; packs per day: 0.5; Years Smoked: 24; Cigarettes Per Day: just a few per week; Second Hand Exposure: No; Hx Alcohol Use: No Hx Substance Use: No Preferred Language: Faroese Communication Ability: Effective Visual Impairment: No Limitations Hearing Ability: Normal Pouncer Machine Required: No Beliefs That Will Affect Care: None marital status: Current Living Situation: Spouse current occupational status: retired How many Children do You have: 2 How many Children do You have Comment: live local, children and able to help with care as needed. Feels Safe at Home: Yes Childhood Exposure to Second-Hand Smoke: No Diet Comment: eats what he wants to , has tried to start eating "healthier" caffeine: Yes during the past year weight has: increased > 10 lbs Dental Care, Regularly: No Physical Activity Frequency: Other Physical Activity Frequency Comment: house chores Seatbelt Use: never Sunscreen Use: No Assistive Devices: None Physical Exam Physical Exam: Gen.: No acute distress. Alert and oriented. HEENT: Anicteric sclera. Neck: No JVD. No bruit. Normal carotid upstrokes bilaterally. Cardiac: No ventricular heave. Regular. Normal S1-S2. No murmurs, rubs, or gallops. Pulmonary: Clear to auscultation bilaterally without wheezes, rales, or rhonchi. Abdomen: Soft, nontender, nondistended, with normoactive bowel sounds. No bruits noted. Extremities: 2+ radial pulses bilaterally. 2+ posterior tibialis pulses bilaterally. Trace bilateral lower extremity edema. No cyanosis. Psychiatric: Affect appears appropriate. Results & Data ([facility]) Vital Signs (Past 12 Hours) Vital Signs Temp Pulse Pulse Resp BP BP Pulse Ox 10/25/21 06:22 108 H 133/81 10/25/21 06:17 117 H 130/70 10/25/21 06:10 107 H 17 132/81 97 10/25/21 06:00 109 H 21 127/79 97 10/25/21 05:58 110 H 22 124/75 95 10/25/21 05:55 106 H 20 120/76 96 10/25/21 05:53 109 H 21 117/73 96 10/25/21 05:50 108 H 19 127/76 97 10/25/21 05:49 110 H 19 112/74 95 10/25/21 05:44 112 H 17 110/71 96 10/25/21 05:20 113 H 20 126/80 92 10/25/21 05:00 117 H 20 145/93 H 88 L 10/25/21 04:00 36.9 C 101 H 14 153/97 H 94 10/25/21 03:00 98 H 23 127/74 94 10/25/21 02:00 102 H 19 118/76 96 10/25/21 01:00 36.7 C 99 H 19 108/70 90 10/25/21 00:42 36.7 C 108 H 17 136/81 94 10/25/21 00:30 102 H 16 105/60 96 10/25/21 00:15 102 H 16 107/73 98 10/24/21 23:35 107 H 16 148/98 H 98 10/24/21 22:11 38.2 C H 119 H 20 140/91 95 Laboratory Results Laboratory Results - last 24 hr 10/24/21 10/24/21 10/24/21 22:30 22:52 22:56 WBC RBC Hgb Hct MCV MCH MCHC RDW Std Deviation RDW Coeff of Radha Plt Count MPV Immature Gran % (Auto) Neut % (Auto) Lymph % (Auto) Trigg % (Auto) Eos % (Auto) Baso % (Auto) Neut # (Auto) Lymph # (Auto) Trigg # (Auto) Eos # (Auto) Baso # (Auto) Immature Gran # (Auto) PT INR APTT PTT Ratio Sodium 136 Potassium 4.4 Chloride 101 Carbon Dioxide 27 Anion Gap 8 BUN 17 Creatinine 0.92 Est Cr Clr Drug Dosing 92.9 Est GFR ( Amer) 97.3 Est GFR (Non-Af Amer) 84.0 BUN/Creatinine Ratio 18.5 Glucose 153 H Lactate Calcium 8.3 L Magnesium Total Bilirubin 0.7 AST 11 L ALT 10 Alkaline Phosphatase 65 Troponin I < 0.03 Total Protein 6.3 Albumin 3.7 Globulin 2.6 Albumin/Globulin Ratio 1.4 Urine Color Urine Appearance Urine pH Ur Specific [place] Urine Protein Urine Glucose (UA) Urine Ketones Urine Blood Urine Nitrite Urine Bilirubin Urine Urobilinogen Ur Leukocyte Esterase Nasal Screen MRSA (PCR) Influ A Molecular Assay Negative Influ B Molecular Assay Negative SARS-CoV-2, RNA, NAAT NEGATIVE 10/24/21 10/24/21 10/24/21 22:56 22:56 23:42 WBC 8.25 RBC 3.74 L Hgb 11.4 L Hct 34.3 L MCV 91.7 MCH 30.5 MCHC 33.2 RDW Std Deviation 45.5 RDW Coeff of Radha 13.9 Plt Count 252 MPV 10.8 H Immature Gran % (Auto) 0.1 Neut % (Auto) 84.1 Lymph % (Auto) 9.9 Trigg % (Auto) 3.6 Eos % (Auto) 2.1 Baso % (Auto) 0.2 Neut # (Auto) 6.93 H Lymph # (Auto) 0.82 L Trigg # (Auto) 0.30 Eos # (Auto) 0.17 Baso # (Auto) 0.02 Immature Gran # (Auto) 0.01 PT INR APTT 26.9 PTT Ratio 1.0 Sodium Potassium Chloride Carbon Dioxide Anion Gap BUN Creatinine Est Cr Clr Drug Dosing Est GFR ( Amer) Est GFR (Non-Af Amer) BUN/Creatinine Ratio Glucose Lactate 1.9 Calcium Magnesium Total Bilirubin AST ALT Alkaline Phosphatase Troponin I Total Protein Albumin Globulin Albumin/Globulin Ratio Urine Color Urine Appearance Urine pH Ur Specific [place] Urine Protein Urine Glucose (UA) Urine Ketones Urine Blood Urine Nitrite Urine Bilirubin Urine Urobilinogen Ur Leukocyte Esterase Nasal Screen MRSA (PCR) Influ A Molecular Assay Influ B Molecular Assay SARS-CoV-2, RNA, NAAT 10/25/21 10/25/21 10/25/21 00:00 02:25 02:25 WBC 7.01 RBC 3.72 L Hgb 11.3 L Hct 34.2 L MCV 91.9 MCH 30.4 MCHC 33.0 RDW Std Deviation 45.8 RDW Coeff of Radha 13.9 Plt Count 253 MPV 11.6 H Immature Gran % (Auto) 0.1 Neut % (Auto) 86.8 Lymph % (Auto) 8.1 Trigg % (Auto) 2.9 Eos % (Auto) 2.0 Baso % (Auto) 0.1 Neut # (Auto) 6.08 Lymph # (Auto) 0.57 L Trigg # (Auto) 0.20 Eos # (Auto) 0.14 Baso # (Auto) 0.01 Immature Gran # (Auto) 0.01 PT 11.0 INR 1.1 APTT 41.6 H PTT Ratio 1.6 Sodium Potassium Chloride Carbon Dioxide Anion Gap BUN Creatinine Est Cr Clr Drug Dosing Est GFR ( Amer) Est GFR (Non-Af Amer) BUN/Creatinine Ratio Glucose Lactate Calcium Magnesium Total Bilirubin AST ALT Alkaline Phosphatase Troponin I Total Protein Albumin Globulin Albumin/Globulin Ratio Urine Color Yellow Urine Appearance Clear Urine pH 8.5 H Ur Specific [place] 1.020 Urine Protein Negative Urine Glucose (UA) Negative Urine Ketones Negative Urine Blood Negative Urine Nitrite Negative Urine Bilirubin Negative Urine Urobilinogen Negative Ur Leukocyte Esterase Negative Nasal Screen MRSA (PCR) Influ A Molecular Assay Influ B Molecular Assay SARS-CoV-2, RNA, NAAT 10/25/21 10/25/21 10/25/21 02:25 05:00 07:21 WBC RBC Hgb Hct MCV MCH MCHC RDW Std Deviation RDW Coeff of Radha Plt Count MPV Immature Gran % (Auto) Neut % (Auto) Lymph % (Auto) Trigg % (Auto) Eos % (Auto) Baso % (Auto) Neut # (Auto) Lymph # (Auto) Trigg # (Auto) Eos # (Auto) Baso # (Auto) Immature Gran # (Auto) PT INR APTT 35.0 H PTT Ratio 1.3 Sodium 137 Potassium 4.7 Chloride 102 Carbon Dioxide 28 Anion Gap 7 BUN 17 Creatinine 0.91 Est Cr Clr Drug Dosing 93.1 Est GFR ( Amer) 98.6 Est GFR (Non-Af Amer) 85.1 BUN/Creatinine Ratio 18.7 Glucose 155 H Lactate Calcium 8.3 L Magnesium 1.3 L Total Bilirubin 0.5 AST 10 L ALT 10 Alkaline Phosphatase 64 Troponin I 0.09 H* Total Protein 6.3 Albumin 3.7 Globulin 2.6 Albumin/Globulin Ratio 1.4 Urine Color Urine Appearance Urine pH Ur Specific [place] Urine Protein Urine Glucose (UA) Urine Ketones Urine Blood Urine Nitrite Urine Bilirubin Urine Urobilinogen Ur Leukocyte Esterase Nasal Screen MRSA (PCR) Negative Influ A Molecular Assay Influ B Molecular Assay SARS-CoV-2, RNA, NAAT 10/25/21 09:15 WBC RBC Hgb Hct MCV MCH MCHC RDW Std Deviation RDW Coeff of Radha Plt Count MPV Immature Gran % (Auto) Neut % (Auto) Lymph % (Auto) Trigg % (Auto) Eos % (Auto) Baso % (Auto) Neut # (Auto) Lymph # (Auto) Trigg # (Auto) Eos # (Auto) Baso # (Auto) Immature Gran # (Auto) PT INR APTT PTT Ratio Sodium Potassium Chloride Carbon Dioxide Anion Gap BUN Creatinine Est Cr Clr Drug Dosing Est GFR ( Amer) Est GFR (Non-Af Amer) BUN/Creatinine Ratio Glucose Lactate Calcium Magnesium Total Bilirubin AST ALT Alkaline Phosphatase Troponin I Pending Total Protein Albumin Globulin Albumin/Globulin Ratio Urine Color Urine Appearance Urine pH Ur Specific [place] Urine Protein Urine Glucose (UA) Urine Ketones Urine Blood Urine Nitrite Urine Bilirubin Urine Urobilinogen Ur Leukocyte Esterase Nasal Screen MRSA (PCR) Influ A Molecular Assay Influ B Molecular Assay SARS-CoV-2, RNA, NAAT Diagnostic Findings Telemetry personally reviewed: No arrhythmia. ECGs personally reviewed: ECG 10/24/2021 at 10:04 p.m.: Sinus tachycardia 122 beats per minute. Nonspecific ST/T-wave abnormality. ECG 10/24/2021 at 10:48 p.m.: Sinus tachycardia 123 beats per minute. Significant anterior ST depression. ECG 10/24/2021 at 11:01 p.m.: Sinus tachycardia 115 beats per minute. Significant anterior ST depression. ECG 10/25/2021 at 5:07 a.m.: Sinus tachycardia 118 beats per minute. Significant anterior ST depression and T-wave inversion. Inferior ST/T-wave abnormality. Chest x-ray 10/24/2021: No acute disease per radiology. Medications Administered Current Inpatient Medications Acetaminophen (Acetaminophen 500 Mg Tab) 1,000 mg PO Q6H PRN PRN Reason: fever/Pain Stop: 11/24/21 01:31 Allopurinol (Allopurinol 300 Mg Tab) [address] [facility] Stop: 11/24/21 08:59 Last Admin: 10/25/21 09:32 Dose: 300 mg Documented by: Aspirin (Aspirin 81 Mg Ectab) [facility] Stop: 11/24/21 08:59 Last Admin: 10/25/21 09:33 Dose: 81 mg Documented by: Atorvastatin Calcium (Atorvastatin 40 Mg Tab) [facility] [place] Stop: 11/24/21 08:59 Cetirizine HCl (Cetirizine Hcl 10 Mg Tablet) 10 mg PO QAM PRN PRN Reason: Seasonal Allergies Stop: 11/24/21 01:07 Last Admin: 10/25/21 09:33 Dose: 10 mg Documented by: Famotidine (Famotidine 40 Mg Tablet) [address] [facility] Stop: 11/24/21 20:59 Furosemide (Furosemide 40 Mg Tab) [facility] [place] Stop: 11/24/21 08:59 Last Admin: 10/25/21 09:33 Dose: 40 mg Documented by: Gabapentin (Gabapentin 300 Mg Cap) 300 mg PO TID [facility] Stop: 11/24/21 08:59 Last Admin: 10/25/21 09:33 Dose: 300 mg Documented by: Nitroglycerin/Dextrose (Nitroglycerin/D5w 100 Mcg/Ml) 250 mls @ 3 mls/hr IV .Q24H [facility]; Protocol Stop: 11/23/21 23:29 Last Admin: 10/25/21 01:07 Dose: Not Given Documented by: Heparin Sodium/Dextrose (Heparin Sodium/Dextrose) 25,000 units in 500 mls @ 20 mls/hr IV .Q24H [facility]; Protocol Stop: 11/23/21 23:44 Last Titration: 10/25/21 09:34 Dose: 1,200 units/hr, 24 mls/hr Documented by: Sodium Chloride (Nss) 500 mls @ 125 mls/hr IV .Q4H [facility] Stop: 10/25/21 10:29 Last Admin: 10/25/21 07:40 Dose: 125 mls/hr Documented by: Magnesium Sulfate/Dextrose (Magnesium Sulfate / D5w) 1 gm in 100 mls @ 50 mls/hr IV Q2H [facility] Stop: 10/25/21 12:59 Last Admin: 10/25/21 09:32 Dose: 50 mls/hr Documented by: Levothyroxine Sodium (Levothyroxine Sodium 100 Mcg Tablet) 100 mcg PO DAILYBB [facility] Stop: 11/24/21 06:29 Last Admin: 10/25/21 06:24 Dose: 100 mcg Documented by: Levothyroxine Sodium (Levothyroxine Sodium 100 Mcg Tablet) 100 mcg PO Fr@0630 [facility] Stop: 11/26/21 06:29 Magnesium Oxide (Magnesium Oxide 400 Mg Tab) 400 mg PO BID [facility] Stop: 10/26/21 09:01 Last Admin: 10/25/21 09:34 Dose: 400 mg Documented by: Metoprolol Succinate (Metoprolol Succ 50mg Ext Rel Tab) 50 mg PO DAILY [facility] Stop: 11/24/21 08:59 Last Admin: 10/25/21 09:32 Dose: 50 mg Documented by: Miscellaneous ([facility] Protocol For Hyperglycemia) 1 ea N/A PRN PRN; Protocol PRN Reason: Hyperglycemia Protocol Stop: 10/27/21 01:07 Nitroglycerin (Nitroglycerin Sl 0.4 Mg/Tab Tab) 0.4 mg SL UD PRN PRN Reason: Chest Pain Stop: 11/24/21 01:07 Last Admin: 10/25/21 05:20 Dose: 0.4 mg Documented by: Pantoprazole Sodium (Pantoprazole 40 Mg Tab) 40 mg PO QAM [facility] Stop: 11/24/21 08:59 Last Admin: 10/25/21 09:32 Dose: 40 mg Documented by: Sacubitril/Valsartan (Valsartan/Sacubitril 26/24mg Tab) 1 tab PO BID [facility] Stop: 11/24/21 08:59 Last Admin: 10/25/21 09:32 Dose: 1 tab Documented by: Sennosides (Senna 8.6 Mg Tab) 8.6 mg PO DAILY [facility] Stop: 11/24/21 08:59 Last Admin: 10/25/21 09:32 Dose: 8.6 mg Documented by: PG Care Time/CCT Total # of Minutes Spent Total Time Spent with Patient: Total time spent is greater than 50% in coordination of care (as documented) at patient's floor/unit and/or counseling patient: Coding Level of Care Code 72916 Initial Inpt Care Lvl 3 Diagnoses Acute coronary syndrome I24.9 CAD, multiple vessel I25.10 Hypertension I10 Dyslipidemia (high LDL; low HDL) E78.5 Ischemic cardiomyopathy I25.5 Chronic systolic CHF (congestive heart failure) I50.22
--- NOTE | 2021-10-25 11:12 | Electrocardiogram Report ---
Test Reason : Blood Pressure : / mmHG Vent. Rate : 118 BPM Atrial Rate : 119 BPM P-R Int : 192 ms QRS Dur : 074 ms QT Int : 278 ms P-R-T Axes : 068 034 217 degrees QTc Int : 389 ms Sinus tachycardia Low voltage QRS Marked ST abnormality, possible inferior subendocardial injury Marked ST abnormality, possible anterolateral subendocardial injury Abnormal ECG When compared with ECG of 21-SEP-2016 07:51, QRS duration has decreased ST now depressed in Inferior leads ST now depressed in Anterolateral leads T wave inversion now evident in Anterolateral leads Confirmed by Lino Salmeron ([id number]) on 10/25/2021 11:11:51 AM Referred By: REFERRED SELF Confirmed By:Lino Salmeron
--- NOTE | 2021-10-25 11:30 | Electrocardiogram Report ---
Test Reason : Blood Pressure : / mmHG Vent. Rate : 122 BPM Atrial Rate : 122 BPM P-R Int : 148 ms QRS Dur : 084 ms QT Int : 328 ms P-R-T Axes : 059 010 225 degrees QTc Int : 467 ms Sinus tachycardia Nonspecific ST and T wave abnormality Abnormal ECG When compared with ECG of 21-AUG-2021 10:06, Vent. rate has increased BY [address] now depressed in Anterolateral leads Nonspecific T wave abnormality now evident in Anterolateral leads Confirmed by Lino Salmeron ([id number]) on 10/25/2021 11:29:54 AM Referred By: REFERRED SELF Confirmed By:Lino Salmeron
--- NOTE | 2021-10-25 11:30 | Electrocardiogram Report ---
Test Reason : Blood Pressure : / mmHG Vent. Rate : 123 BPM Atrial Rate : 234 BPM P-R Int : 000 ms QRS Dur : 074 ms QT Int : 258 ms P-R-T Axes : 000 045 180 degrees QTc Int : 369 ms Poor data quality, interpretation may be adversely affected Sinus tachycardia Low voltage QRS Marked ST abnormality, possible anterolateral subendocardial injury Abnormal ECG When compared with ECG of 24-OCT-2021 22:04, (unconfirmed) ST more depressed Anterolateral leads T wave inversion now evident in Anterior leads Confirmed by Lino Salmeron ([id number]) on 10/25/2021 11:30:33 AM Referred By: REFERRED SELF Confirmed By:Lino Salmeron
[2021-10-25] MEDS ORDERED: ONDANSETRON INJ 2 MG/ML 2 ML VIAL IV ONE (11:31)
--- NOTE | 2021-10-25 11:32 | Electrocardiogram Report ---
Test Reason : Blood Pressure : / mmHG Vent. Rate : 115 BPM Atrial Rate : 416 BPM P-R Int : 000 ms QRS Dur : 088 ms QT Int : 234 ms P-R-T Axes : 063 015 185 degrees QTc Int : 323 ms Sinus tachycardia Abnormal ECG When compared with ECG of 24-OCT-2021 22:48, (unconfirmed) No significant change Confirmed by Lino Salmeron ([id number]) on 10/25/2021 11:32:20 AM Referred By: REFERRED SELF Confirmed By:Lino Salmeron
--- NOTE | 2021-10-25 12:44 | XCELERA ---
[id number]_[id number]
--- NOTE | 2021-10-25 12:56 | Discharge Summary ---
Date of Service October 25, 2021 Principal Diagnosis Unstable angina ACS Discharge Exam General: A&Ox3. NAD. Cooperative. HEENT: Atraumatic, normocephalic. Vision and hearing grossly intact Pulm: CTAB A&P. -wheezes, -rales, -rhonchi. Symmetrical chest rise. No increase in work of breathing. No respiratory distress. Cardiac: RRR, -mrg. Radial pulses intact and symmetrical. No JVD. Trace ankle edema Abdominal: Nontender, nondistended, soft. BS present. Discharge Data Allergies Allergy/AdvReac Type Severity Reaction Status Date / Time bee venom protein (honey bee) Allergy Severe EXTREME Verified 10/24/21 23:05 SWELLING--STUNG ON HAND, ARM SWELLED TO SHOULDER. Penicillins Allergy Intermediate HIGH Verified 10/24/21 23:05 FEVER, RASH (NOTED ALLERGIC TO "ANY-CILLIN" Consultations 10/24/21 23:30 ED Decision to Admit Stat 10/25/21 08:17 Consult Cardiology Routine 10/25/21 09:49 Burn CD for patient Stat Hospital Course (1) Shortness of breath: Frederic is a 71-year-old male with a past medical history of severe multivessel CAD as detailed below, cauda equina with neurogenic bladder and leg weakness, testicular cancer, PE, and hypertension who presented with worsening intermittent angina and angina not resolved with nitro which drove him to present to the ER. He had a recent hospitalization for pyelonephritis 04/24 with elevated troponins, declined PCI/CABG at that time. EKG on admission showed? V3V5 depressions, repeat EKG with pain showed worsened dynamic ST depressions in V1V6, lead II. Patient's pain improved with nitroglycerin, was placed on a heparin drip. He had repeat pain at 5 AM morning of transfer which resolved with sublingual nitro. Nitro drip was ordered but not given, as patient did not continue to have recurrent pain and was concerned for blood pressure which was systolic in the 90s intermittently. Case was discussed with cardiology/interventional cardiology did recommend the patient for transfer to tertiary care. Patient was agreeable to this, and reports that he would now be agreeable to CABG. Case was discussed by cardiology with [facility] and was accepted for transfer. Transfer to: [facility] Accepted by: Dr. Stevens CT Surgery Transported Via: [facility] Acute coronary syndrome Unstable angina, history of multivessel CAD as below EKG with dynamic changes as noted above - Echo 04/25/2021 [facility]: Normal LV size. EF 35-40%. Severe hypokinesis to akinesis of the mid to distal inferior wall. Dyskinetic apex. Otherwise, mild global hypokinesis. Moderate LVH. No significant valvular abnormalities. RVSP 26. - Cardiac catheterization 04/28/2021 [facility]: Distal LM CA 90%. Ostial LAD 80%. Mid LAD 50-70%. D2 ostial/proximal 70-80%. Co dominant system. Ostial circumflex 70%. Mid circumflex 40%. Distal circumflex 70%. Large OM1 ostial/proximal 50% and mid 90-95% involving smaller branch. Circumflex PL proximal 50%. Proximal RCA 90%. Early mid RCA 80-90%. Distal RCA 90-95% diffuse CAD. Eldg-fh-xuwsw collaterals. LVEDP 18. Right radial artery moderate to severe stenosis but able to complete catheterization via the right radial artery. - Echo 10/19/2021: Normal LV size, wall motion, systolic function. EF 55-60%. Cannot exclude wall motion abnormalities given poor/fair image quality. Mild LVH. No significant valvular abnormalities. IV echo contrast was not available. - Echo 10/25/2021: LVEF normal, no regional wall motion abnormalities, EF 55-60%, no significant valvular pathology Apixaban held, patient placed on heparin drip Troponin initially negative, up trended to 0.09, then 0.9 Patient transported by [facility] to [facility] cardiothoracic surgery as noted above (2) Chest pain: See above (3) Dyslipidemia (high LDL; low HDL): Continue atorvastatin 80 mg daily (4) Hypertension: See above (5) Chronic systolic CHF (congestive heart failure): See above (6) CAD, multiple vessel: See above (7) Ischemic cardiomyopathy: See above (8) History of pulmonary embolism: Patient switched to heparin drip with bolus from apixaban for unstable angina/ACS (9) Diabetes: Place on Accu-Cheks before meals and at bedtime with NovoLog coverage per scale Hold Metformin and glimepiride (10) Cauda equina syndrome: Cauda equina syndrome/neurogenic bowel/neurogenic bladder- Continue usual support (11) Neurogenic bowel: See above (12) Neurogenic bladder: See above (13) Non-ST elevation WA (NSTEMI): See above (14) Hypothyroidism: Continue levothyroxine 100 mcg daily (15) Acid reflux: Continue famotidine Total Time Total Time Spent Total Time Spent (In Minutes): Time spend day of discharge 60 minutes including direct patient care, documentation, review of labs and images, and coordination of care. Discharge Plan Discharge Items Patient Disposition: Transfer Acute Care Hospital Reason For Visit: ACS Discharge Diagnosis: Acute coronary syndrome Condition on Discharge: Good Activity: Per Instructions section Non-emergency contact: Route Sales Trainee Call non-emergency contact if: you have any medication questions, your symptoms worsen, your pain is not controlled and your pain is worsening Follow-up/Referrals: Liz Kirby DO [Primary Care Provider] - Diet: Nothing by Mouth Addtl Attending Provider Instructions: Frederic is a 71-year-old male with a past medical history of severe multivessel disease and CAD who presented with worsening intermittent followed by persistent angina and he was admitted for ACS with dynamic ST changes. Initial troponin was negative, began to uptrend during his hospitalization. Did have associated diaphoresis with one of his episodes. Improved with ER treatment and nitro, continue nitro was held due to hypotension and nitro drip was placed on hold. Patient had a recurrent episode of dynamic ST changes at 5 AM which again resolved with nitro, pressures tolerated. Case reviewed with patient who was agreeable to surgical intervention/CABG. Case was discussed with [facility] CT Surgery and accepted by Dr. Stevens for transfer. Repeat TTE pending final read, images pushed/chart copied. TTE: 04/25/2021 [facility]: Normal LV size. EF 35-40%. Severe hypokinesis to akinesis of the mid to distal inferior wall. Dyskinetic apex. Otherwise, mild global hypokinesis. Moderate LVH. No significant valvular abnormalities. RVSP 26. Cardiac catheterization 04/28/2021 [facility]: Distal LM CA 90%. Ostial LAD 80%. Mid LAD 50-70%. D2 ostial/proximal 70-80%. Co dominant system. Ostial circumflex 70%. Mid circumflex 40%. Distal circumflex 70%. Large OM1 ostial/proximal 50% and mid 90-95% involving smaller branch. Circumflex PL proximal 50%. Proximal RCA 90%. Early mid RCA 80-90%. Distal RCA 90-95% diffuse CAD. Iltj-fi-jgnyd collaterals. LVEDP 18. Right radial artery moderate to severe stenosis but able to complete catheterization via the right radial artery. 3. Echo 10/19/2021: Normal LV size, wall motion, systolic function. EF 55- 60%. Cannot exclude wall motion abnormalities given poor/fair image quality. Mild LVH. No significant valvular abnormalities. IV echo contrast was not available. CARDIOLOGY CONSULT COPIED BELOW, CHART COPY TO FOLLOW: ASSESSMENT/PLAN: 1. Acute coronary syndrome: Presenting with acute coronary syndrome/likely NSTEMI. Has had dynamic ST changes, specifically in LAD territory. Known multivessel CAD for which CABG had been recommended in the past and has been evaluated at [facility] by CT surgery. Currently no significant angina. Systolic blood pressure was in the 90s during evaluation. If blood pressure improves, could administer nitroglycerin drip for symptom control. If has recurrent episode not amenable to medical therapy, would consider balloon pump. Recommend urgent transfer to CT surgery capable center. He is agreeable. Continue aspirin. Continue heparin drip. Continue beta-kan and high-intensity statin therapy. 2. Multivessel CAD: Has been evaluated by CT surgery at [facility] in the past. CABG was recommended but he declined at that time. He is now agreeable. Dr. Stevens of CT surgery was contacted and has graciously accepted him in transfer. Continue medical therapy as above. 3. Ischemic cardiomyopathy: LV systolic function appeared improved on September 2021 echo. LV systolic function appears mildly reduced on current study during this hospitalization on preliminary review. Formal review is pending. Continue beta-kan and Entresto. 4. Chronic systolic CHF/heart failure with mid range EF: He appears euvolemic on exam. Follows in the Heart failure program. 5. Dyslipidemia: Continue high-intensity statin therapy. 6. Hypertension: Currently mildly hypotensive. Continue home dose of beta- kan. Has had issues in the past with orthostatic symptoms. Continue Entresto as tolerated. 7. Disposition: Recommend transfer to [facility] for CT surgery evaluation and consideration of CABG. He has been accepted by Dr. Stevens of CT surgery. His was updated via telephone. Dr. Zabala and I have discussed patient care. Recommended transportation via helicopter if available. ICU staff notified of transfer. Highly complex medical issues. Thank you for allowing me to participate in the care of your patient. Please call for any other questions or concerns. Sincerely, Jn Casillas M.D. History of Present Illness Reason for Consultation: ACS Requesting Physician: Filemon Quiroga MD Attending Physician: Filemon Quiroga MD History of Present Illness Mr. Camejo is a very pleasant 71-year-old gentleman with a history significant for multivessel CAD, ischemic cardiomyopathy, systolic CHF, cauda equina syndrome following L4/L5 injury in December of 2020, hypertension, dyslipidemia, type 2 diabetes and metastatic testicular cancer (diagnosed at age 26). He also has a history of right upper lobe PE following surgery in December of 2020. He was hospitalized on 04/24/2021 for UTI/bacteremia/pyelonephritis but was found to have elevated troponins, peaking at 12.6. Upon questioning, he had been experiencing exertional angina prior to hospitalization. Echo demonstrated ischemic cardiomyopathy. Cardiac catheterization demonstrated severe multivessel CAD. He declined transfer for bypass and was discharged home for outpatient CT surgery evaluation. He was readmitted on 05/02/2021 with angina and transferred [facility] for CABG evaluation. CABG was offered but he declined and also declined PCI. Palliative Care was consulted. He was readmitted on 05/17/2021 with syncope, felt to be due to hypovolemia and polypharmacy. He was hyponatremic. He received fluids and was discharged on 05/21/2021. He has had the following studies/procedures: 1. Echo 04/25/2021 [facility]: Normal LV size. EF 35-40%. Severe hypokinesis to akinesis of the mid to distal inferior wall. Dyskinetic apex. Otherwise, mild global hypokinesis. Moderate LVH. No significant valvular abnormalities. RVSP 26. 2. Cardiac catheterization 04/28/2021 [facility]: Distal LM CA 90%. Ostial LAD 80%. Mid LAD 50-70%. D2 ostial/proximal 70-80%. Co dominant system. Ostial circumflex 70%. Mid circumflex 40%. Distal circumflex 70%. Large OM1 ostial/proximal 50% and mid 90-95% involving smaller branch. Circumflex PL proximal 50%. Proximal RCA 90%. Early mid RCA 80-90%. Distal RCA 90-95% diffuse CAD. Ykcv-ej-tjlqp collaterals. LVEDP 18. Right radial artery moderate to severe stenosis but able to complete catheterization via the right radial artery. 3. Echo 10/19/2021: Normal LV size, wall motion, systolic function. EF 55- 60%. Cannot exclude wall motion abnormalities given poor/fair image quality. Mild LVH. No significant valvular abnormalities. IV echo contrast was not available. He was admitted on 10/24/2021 with unstable angina/acute coronary syndrome. He has been experiencing angina occurring at night, waking him from sleep for the past several days. He would take nitroglycerin with quick resolution of his symptoms within minutes and then would go back to sleep. He would then be awakened several times throughout the night requiring further nitroglycerin. He has used up to 6 nitroglycerine doses throughout the night, each for individual episodes of angina. Angina was described as a substernal chest discomfort that would radiate to the left arm and occasionally to the right arm. On 1 occasion he was diaphoretic but no significant shortness of breath. He admits that on 10/23/2021, he had more episodes that intermittently occurred throughout the day yesterday, prompting hospitalization. ECG has demonstrated worsening ST depressions through the precordial leads. He had another episode at approximately 5:00 a.m. this morning that resolved with nitroglycerin. He has had some intermittent hypotension with nitroglycerin administration while here. Nitroglycerin drip had been ordered but systolic blood pressure was in the 90s and he had no further angina this morning when he was personally evaluated. He denies orthopnea, syncope, palpitations, or bleeding such as melena, hematochezia, or hematuria. He has been having issues with recurrent UTI. He admits to near-syncope during severe episodes of angina. In the past he had declined CABG due to cauda equina syndrome, but he is agreeable to move forward with revascularization at this point. Stand-Alone Forms: My [facility] Skilled Items Patient informed of condition?: Yes DNR: No Discharge Level of Care: Other Communicable Disease: No Discharge Prognosis: Other Lines: Peripheral IV Urinary Catheter: No Medications and DC Order Prescriptions: Continued (DME) Tawanna Freeman See Rx Instructions .Route .MEDSUPPLY Qty: 1 RF: 0 (DME) Mattress (Air or other) Misc See Rx Instructions .Route Qty: 1 RF: 0 atorvastatin 80 mg tablet 80 mg PO QAM Qty: 90 RF: 1 cetirizine 10 mg tablet 10 mg PO QAM PRN (Reason: Seasonal Allergies) Qty: 90 RF: 1 glimepiride 2 mg tablet 2 mg PO QAM Qty: 90 RF: 1 furosemide 40 mg tablet 40 mg PO QAM Qty: 90 RF: 1 famotidine 40 mg tablet 40 mg PO HS Qty: 90 RF: 1 metformin 1,000 mg tablet 1,000 mg PO BID Qty: 180 RF: 1 gabapentin 300 mg capsule 300 mg PO TID Qty: 180 RF: 1 allopurinol 300 mg tablet 300 mg PO QAM Qty: 90 RF: 1 isosorbide mononitrate 30 mg tablet extended release 24 hr 60 mg PO QAM Qty: 90 RF: 1 nitrofurantoin monohyd/m-cryst [Macrobid] 100 mg capsule 100 mg PO BID 7 Days Qty: 14 RF: 0 metoprolol succinate 50 mg tablet extended release 24 hr 50 mg PO DAILY Qty: 90 RF: 3 (DME) diaper,brief,adult,disposable Misc See Rx Instructions .ROUTE .MEDSUPPLY Qty: 126 RF: 3 senna 8.6 mg capsule 8.6 mg PO DAILY RF: 0 cranberry 500 mg capsule 500 mg PO DAILY RF: 0 nitroglycerin 0.4 mg tablet, sublingual 0.4 mg sublingual DIRECTED PRN (Reason: Chest Pain) Qty: 30 RF: 2 omeprazole 20 mg capsule,delayed release(DR/EC) 20 mg PO QAM Qty: 90 RF: 1 levothyroxine 100 mcg tablet 100 mcg PO .COMPLEX Qty: 102 RF: 1 apixaban 5 mg tablet 5 mg PO BID Qty: 60 RF: 5 Entresto 24-26 mg tablet 1 tab PO BID Qty: 60 RF: 2 aspirin 81 mg tablet,delayed release (DR/EC) 81 mg PO QAM RF: 0 acetaminophen [Tylenol Extra Strength] 500 mg Tablet 1,000 mg PO Q6H PRN (Reason: fever/Pain) RF: 0 Saccharomyces boulardii [Probiotic (S.boulardii)] 250 mg Capsule 250 mg PO BID RF: 0 Discharge Orders: Discharge Order (Routine); Ordered 10/25/21 Ordered By: Tello Zabala Admission Data Admit Date/Time: 10/24/21 23:56 Attending Provider: Filemon Quiroga Admit Provider: Filemon Quiroga Primary Care Provider: Liz Kirby Other Providers: Filemon Quiroga ; Lino Salmeron Other Interventions: Discharge Summary Assessment (RN) Last Done: 10/25/21 11:32 Coding Level of Care Code D/C DAY MANAGEMENT >30 MINS Diagnoses Shortness of breath R06.02 Chest pain R07.9 Dyslipidemia (high LDL; low HDL) E78.5 Hypertension I10 Chronic systolic CHF (congestive heart failure) I50.22 CAD, multiple vessel I25.10 Ischemic cardiomyopathy I25.5 History of pulmonary embolism Z86.711 Diabetes E11.9 Cauda equina syndrome G83.4 Neurogenic bowel K59.2 Neurogenic bladder N31.9 Non-ST elevation WA (NSTEMI) I21.4 Hypothyroidism E03.9 Hypothyroidism type: unspecified Acid reflux K21.9
[2021-10-25] MEDS ORDERED: FAMOTIDINE 40 MG TABLET PO SCH (21:00)
[2021-10-27] MEDS ORDERED: LEVOTHYROXINE SODIUM 100 MCG TABLET PO SCH (06:30)
== END 2021-10-25 12:53 | disposition short-term general hospital (02) | DRG 281 ==
LOC: ED 21:58 → 1E 23:56

== ENCOUNTER 2022-02-15 18:49 | Inpatient (IN) ==
--- NOTE | 2022-02-15 19:03 | Emergency Department Note ---
Impression & Plan FRANCIE (acute kidney injury), Acute dehydration ED Provider Note NAME: JOMAR HAAS III AGE: 71 SEX: M : 1950 ARRIVES VIA: Walk-In INFORMANT: Patient, ED PROVIDER(S): Nhan Norman MD Chief Complaint: Weakness HPI: Patient presents from home with acute on chronic issues. The patient states that he has had some associated nausea diarrhea and has had a UTI since January. His recent started on Keflex on Saturday. Patient states that he also had a recent fall from his wheelchair but did not strike his head falling to his hands and knees. The patient denies any head strike and does not take any blood thinning medications. The patient states that he had gone to [place] back in October for heart procedure and was pending a bypass but instead ended up getting cardiac stents. The patient reportedly has cauda equina status postprocedure but the patient has had chronic issues with his lower extremities. Patient denies any chest pains or shortness of breath. He has had dry nonproductive cough. Patient is a former smoker smoking last 5 to 6 years ago. The patient does self cath at home 5 or 6 times daily. ROS: See HPI for pertinent positives and negatives. A total of 10 systems were reviewed and otherwise negative. Past medical history: See below Surgical history: See below Social history: See below Physical Exam: GENERAL: NAD, wearing a mask, non-toxic. EYE EXAM: Normal conjunctiva. PERRL, no anisocoria and EOM's grossly intact w/o pain. NECK: Supple, no nuchal rigidity, no adenopathy, non-tender. No signs of meningismus. LUNGS: Clear to auscultation. Normal chest wall mechanics. HEART: NSR, no MRG. ABDOMEN: Abdomen soft, non-tender, normo-active bowel sounds, no masses, no rebound or guarding. BACK: No CVA TTP. Healed midline lumbar incisional scar SKIN: No rashes and no bruising. UPPER EXTREMITIES: Upper extremities are grossly normal. LOWER EXTREMITIES: Grossly normal, no edema. NEURO EXAM: A&O x3, cranial nerves II-XII grossly intact, normal speech, moves all 4 extremities on command w/o issue. Differential diagnoses: Infection, dehydration, metabolic abnormality, hy po/hyperglycemia, electrolyte disturbance, anemia, hypoxia, cardiac sources, intracerebral event, toxicologic, neurologic, as well as other pathologies. Course: Patient was seen and evaluated the bedside. Full history physical exam was performed. EKG interpreted by me Normal sinus rhythm, rate 87, normal intervals, normal axis, no ST changes or T WI. Imaging Studies: See Below Cardiac monitoring: An order was placed for continuous cardiac monitoring. The monitor shows a rate of 82 with sinus rhythm. MDM: Patient was seen due to concern for cough and weakness. Blood work was obtained. IV fluids also ordered. Patient has a normal white count with a hemoglobin of 10.8. The patient's platelet count is unremarkable. The patient's kidney function with a creat of 3.8 which is an acute change compared to prior. The patient was ordered additional IV fluids. Patient with mild hypomagnesemia. Chest x-ray is negative. I did speak the on-call hospitalist Dr. Frey and the patient was admitted to the medicine service for FRANCIE. Past Med/Surg History Medical History Allergic rhinitis CAD, multiple vessel Cauda equina syndrome (12/2020) Chronic systolic CHF (congestive heart failure) Constipation Diabetes Dyslipidemia (high LDL; low HDL) GERD (gastroesophageal reflux disease) Gout History of pulmonary embolism (01/23/21) Hx of testicular cancer Hypertension Hypothyroidism Ischemic cardiomyopathy Lumbar disc herniation with radiculopathy Neurogenic bladder Neurogenic bowel Spinal stenosis, lumbar region with neurogenic claudication Urinary retention Surgical History Hx of total hip arthroplasty S/P coronary artery stent placement S/P orchiopexy 1975 Status post lumbar surgery (01/18/21) lumbar decompression bilateral medial facetectomies and foraminotomies at L3- L4, L4-L5, spinal fusion L4-L5, posterior instrumentation L4-L5, Family History Father Lung cancer Cancer brain Mother Diabetes Uncle Prostate cancer Grandmother (Paternal) Stroke Family/Other Colorectal cancer Breast cancer Myocardial infarction Grandfather (Maternal) Rheumatoid arthritis Denies family history of Ovarian cancer Social History Smoking Status: Former smoker Tobacco Type: Cigarettes Age Quit Using Tobacco: 65; packs per day: 0.5; Years Smoked: 24; Cigarettes Per Day: just a few per week; Second Hand Exposure: No; Hx Alcohol Use: No Hx Substance Use: No Preferred Language: Swedish Communication Ability: Effective Visual Impairment: No Limitations Hearing Ability: Normal Civil Laboratory Technician Required: No Beliefs That Will Affect Care: None marital status: Current Living Situation: Spouse current occupational status: retired How many Children do You have: 2 How many Children do You have Comment: live local, children and able to help with care as needed. Feels Safe at Home: Yes Childhood Exposure to Second-Hand Smoke: No Diet Comment: eats what he wants to , has tried to start eating "healthier" caffeine: Yes during the past year weight has: increased > 10 lbs Dental Care, Regularly: No Physical Activity Frequency: Other Physical Activity Frequency Comment: house chores Seatbelt Use: never Sunscreen Use: No Assistive Devices: Walker and Wheelchair Allergies Allergies Allergy/AdvReac Type Severity Reaction Status Date / Time bee venom protein (honey bee) Allergy Severe EXTREME Verified 02/15/22 19:53 SWELLING--STUNG ON HAND, ARM SWELLED TO SHOULDER. Penicillins Allergy Intermediate HIGH Verified 02/15/22 19:53 FEVER, RASH (NOTED ALLERGIC TO "ANY-CILLIN" Home Meds Home Medications Medication Instructions Recorded Confirmed aspirin 81 mg tablet,delayed 81 mg PO QAM 05/02/21 02/15/22 release acetaminophen 500 mg tablet 1,000 mg PO Q6H PRN 05/17/21 02/15/22 (Tylenol Extra Strength) cranberry 500 mg capsule 500 mg PO DAILY cap 07/26/21 02/15/22 sennosides 8.6 mg capsule (senna) 8.6 mg PO DAILY 07/26/21 02/15/22 Saccharomyces boulardii 250 mg 250 mg PO BID 10/24/21 02/15/22 capsule (Probiotic (S.boulardii)) ondansetron HCl 4 mg tablet 4 mg PO Q8H PRN 01/02/22 02/15/22 Previous Rx's Medication Instructions Recorded diaper,brief,adult,disposable #126 ea 03/07/21 Mattress (Air or other) #1 ea 05/03/21 furosemide 40 mg tablet 40 mg PO QAM #90 tab 07/06/21 famotidine 40 mg tablet 40 mg PO HS #90 tab 07/14/21 allopurinol 300 mg tablet 300 mg PO QAM #90 tab 08/30/21 nitroglycerin 0.4 mg sublingual 0.4 mg SUBLINGUAL DIRECTED PRN 09/04/21 tablet #30 tab omeprazole 20 mg capsule,delayed 20 mg PO QAM #90 cap 09/04/21 release metoprolol succinate 50 mg 50 mg PO DAILY #90 tab 10/24/21 tablet,extended release 24 hr clopidogrel 75 mg tablet 75 mg PO DAILY #30 tab 11/13/21 gabapentin 300 mg capsule 300 mg PO TID #180 cap 12/05/21 cetirizine 10 mg tablet 10 mg PO QAM PRN #90 tab 12/06/21 glimepiride 2 mg tablet 2 mg PO QAM #90 tab 12/06/21 lisinopril 5 mg tablet 5 mg PO DAILY #30 tab 01/02/22 atorvastatin 80 mg tablet 80 mg PO QAM #90 tab 01/12/22 metformin 1,000 mg tablet 1,000 mg PO BID #180 tab 01/17/22 levothyroxine 137 mcg tablet 137 mcg PO DAILY #30 tab 02/07/22 cephalexin 500 mg capsule 500 mg PO BID 10 Days #20 cap 02/09/22 Results & Data (ED) Vital Signs Vital Signs - 24 hr 02/15/22 18:50 02/15/22 18:52 02/15/22 19:16 Temperature 37.4 C Temperature Source Temporal Artery Scan Pulse Rate 94 H 90 Pulse Rate [Right Finger] 91 H Respiratory Rate 18 20 Respiratory Effort / Characteristics Non-Labored Respiratory Depth Normal Blood Pressure 124/76 Blood Pressure [Right Arm] Blood Pressure Mean 92 Blood Pressure Mean [Right Arm] Blood Pressure Position Sitting Pulse Oximetry 92 94 92 Oxygen Delivery Method Room Air Room Air Room Air Sepsis Recent Fever Within 48 Hours Yes Sepsis New/Unexplained Change in Mental Status Yes Sepsis Action Taken by Nursing No Action Required 02/15/22 20:50 Temperature Temperature Source Pulse Rate Pulse Rate [Right Finger] 82 Respiratory Rate 16 Respiratory Effort / Characteristics Respiratory Depth Blood Pressure Blood Pressure [Right Arm] 109/62 Blood Pressure Mean Blood Pressure Mean [Right Arm] 77 Blood Pressure Position Pulse Oximetry 92 Oxygen Delivery Method Room Air Sepsis Recent Fever Within 48 Hours Sepsis New/Unexplained Change in Mental Status Sepsis Action Taken by Senior Care Medications Current Medication List: was personally reviewed by me Laboratory Data Attestation: I reviewed the patient's lab results. Result diagrams: 02/15/22 19:39 02/15/22 19:39 Lab Results 02/15/22 02/15/22 02/15/22 Range/Units 19:25 19:39 19:39 WBC 9.51 (4.8-10.8) K/uL RBC 3.62 L (4.7-6.1) M/uL Hgb 10.8 L (14.0-18.0) g/dL Hct 33.0 L (42-52) % MCV 91.2 (80-100) fL MCH 29.8 (25-34) pg MCHC 32.7 (32-36) g/dL RDW Std Deviation 43.1 (36.4-46.3) fL RDW Coeff of Radha 13.0 (11.5-14.5) % Plt Count 329 (130-400) K/uL MPV 10.8 H (7.4-10.4) fL Immature Gran % (Auto) 0.1 % Neut % (Auto) 60.0 % Lymph % (Auto) 29.3 % Benson % (Auto) 4.6 % Eos % (Auto) 5.4 % Baso % (Auto) 0.6 % Neut # (Auto) 5.70 (1.4-6.5) K/uL Lymph # (Auto) 2.79 (1.2-3.4) K/uL Benson # (Auto) 0.44 (0.11-0.59) K/uL Eos # (Auto) 0.51 H (0-0.5) K/uL Baso # (Auto) 0.06 (0-0.2) K/uL Immature Gran # (Auto) 0.01 (0.00-0.02) K/uL Sodium 140 (136-145) mmol/L Potassium 4.8 (3.5-5.1) mmol/L Chloride 104 (98-107) mmol/L Carbon Dioxide 27 (21-32) mmol/L Anion Gap 9 (3-11) BUN 60 H (6-23) mg/dl Creatinine 3.86 H (0.6-1.4) mg/dl Est Cr Clr Drug Dosing Not Reportable Est GFR ( Amer) 17.2 ml/min Est GFR (Non-Af Amer) 14.8 ml/min BUN/Creatinine Ratio 15.5 (10-20) Glucose 216 H (70-99(Fasting)) mg/dl Calcium 8.8 (8.5-10.1) mg/dl Magnesium 1.5 L (1.7-2.4) mg/dl Total Bilirubin 0.3 (0.2-1.0) mg/dl AST 10 L (13-39) U/L ALT 10 (7-52) U/L Alkaline Phosphatase 70 (34-104) U/L Troponin I High Sens 4.5 (0-20) pg/ml Total Protein 7.4 (6.0-8.3) gm/dl Albumin 3.9 (3.4-5.0) gm/dl Globulin 3.5 (2.5-4.0) gm/dl Albumin/Globulin Ratio 1.1 (0.9-2) TSH (0.300-4.500) uIu/ml SARS-CoV-2, RNA, NAAT NEGATIVE (NEGATIVE) 02/15/22 Range/Units 19:39 WBC (4.8-10.8) K/uL RBC (4.7-6.1) M/uL Hgb (14.0-18.0) g/dL Hct (42-52) % MCV (80-100) fL MCH (25-34) pg MCHC (32-36) g/dL RDW Std Deviation (36.4-46.3) fL RDW Coeff of Radha (11.5-14.5) % Plt Count (130-400) K/uL MPV (7.4-10.4) fL Immature Gran % (Auto) % Neut % (Auto) % Lymph % (Auto) % Benson % (Auto) % Eos % (Auto) % Baso % (Auto) % Neut # (Auto) (1.4-6.5) K/uL Lymph # (Auto) (1.2-3.4) K/uL Benson # (Auto) (0.11-0.59) K/uL Eos # (Auto) (0-0.5) K/uL Baso # (Auto) (0-0.2) K/uL Immature Gran # (Auto) (0.00-0.02) K/uL Sodium (136-145) mmol/L Potassium (3.5-5.1) mmol/L Chloride (98-107) mmol/L Carbon Dioxide (21-32) mmol/L Anion Gap (3-11) BUN (6-23) mg/dl Creatinine (0.6-1.4) mg/dl Est Cr Clr Drug Dosing Est GFR ( Amer) ml/min Est GFR (Non-Af Amer) ml/min BUN/Creatinine Ratio (10-20) Glucose (70-99(Fasting)) mg/dl Calcium (8.5-10.1) mg/dl Magnesium (1.7-2.4) mg/dl Total Bilirubin (0.2-1.0) mg/dl AST (13-39) U/L ALT (7-52) U/L Alkaline Phosphatase (34-104) U/L Troponin I High Sens (0-20) pg/ml Total Protein (6.0-8.3) gm/dl Albumin (3.4-5.0) gm/dl Globulin (2.5-4.0) gm/dl Albumin/Globulin Ratio (0.9-2) TSH 3.043 (0.300-4.500) uIu/ml SARS-CoV-2, RNA, NAAT (NEGATIVE) Administered Medications Discontinued Medications Sodium Chloride (Nss) 500 mls @ 999 mls/hr IV .Q31M NOAH Stop: 02/15/22 20:00 Last Infusion: 02/15/22 20:34 Dose: 0 mls/hr Documented by: [id number] Admin: 02/15/22 19:41 Dose: 999 mls/hr Documented by: [id number] Ondansetron HCl (Ondansetron Inj 2 Mg/Ml 2 Ml Vial) 4 mg IV NOW STA Stop: 02/15/22 19:17 Last Admin: 02/15/22 19:42 Dose: 4 mg Documented by: [id number] Imaging Data Radiologist's Impression: Chest X-Ray 02/15/22 19:16 XR chest 1V portable CLINICAL HISTORY: weakness COMPARISON STUDY: Chest CT April 24, 2021 chest radiograph October 24, 2021. FINDINGS: Lung volumes are normal. No pneumothorax or pleural effusion is noted. Blunting of the left costophrenic is likely chronic. Cardiomediastinal silhouette is stable. There is no consolidation to suggest pneumonia. There is no evidence for pulmonary edema. IMPRESSION: No acute cardiopulmonary findings. No significant change in appearance of the chest. ACT 112: Negative or not required by law. Electronically signed by: Kevin Del Angel M.D. 02/15/2022 8:24 PM Discharge Plan Visit Data Chief Complaint: Illness Stated Complaint: FEVER, NAUSEA, ACHE ED Provider: Nhan Norman Discharge Problem: FRANCIE (acute kidney injury), Acute dehydration Patient Disposition: Admitted As Inpatient Discharge Instructions Interventions: ED Discharge Assessment Last Done: 02/15/22 22:51
[2022-02-15] MEDS ORDERED: ONDANSETRON INJ 2 MG/ML 2 ML VIAL IV STA (19:16)
[2022-02-15] MEDS ORDERED: SODIUM CHLORIDE 0.9% 500 ML IV SCH (19:30)
[2022-02-15 19:50] LABS: Basophils # (auto) 0.06 K/uL (0-0.2); Basophils % (auto) 0.6 %; Eosinophils # (auto) 0.51 K/uL (0-0.5); Eosinophils % (auto) 5.4 %; Hemoglobin 10.8 g/dL (14.0-18.0); Immature Granulocytes # (auto) 0.01 K/uL (0.00-0.02); Immature Granulocytes % (auto) 0.1 %; Lymphocytes # (auto) 2.79 K/uL (1.2-3.4); Lymphocytes % (auto) 29.3 %; Mean Corpuscular Hemoglobin 29.8 pg (25-34); Mean Corpuscular Hgb Conc 32.7 g/dL (32-36); Mean Corpuscular Volume 91.2 fL (80-100); Mean Platelet Volume 10.8 fL (7.4-10.4); Monocytes # (auto) 0.44 K/uL (0.11-0.59); Monocytes % (auto) 4.6 %; Platelet Count 329 K/uL (130-400); RDW Standard Deviation 43.1 fL (36.4-46.3); Red Blood Count 3.62 M/uL (4.7-6.1); White Blood Count 9.51 K/uL (4.8-10.8)
[2022-02-15 20:15] LABS: Alanine Aminotransferase 10 U/L (7-52); Albumin Globulin Ratio 1.1 (0.9-2); Albumin Level 3.9 gm/dl (3.4-5.0); Alkaline Phosphatase 70 U/L (34-104); Anion Gap 9 (3-11); Aspartate Aminotransferase 10 U/L (13-39); BUN Creatinine Ratio 15.5 (10-20); Bilirubin,Total 0.3 mg/dl (0.2-1.0); Blood Urea Nitrogen 60 mg/dl (6-23); Calcium 8.8 mg/dl (8.5-10.1); Carbon Dioxide 27 mmol/L (21-32); Chloride 104 mmol/L (98-107); Est GFR (African American) 17.2 ml/min; Est GFR (Non-African American) 14.8 ml/min; Globulin 3.5 gm/dl (2.5-4.0); Glucose 216 mg/dl (70-99(Fasting)); Magnesium 1.5 mg/dl (1.7-2.4); Potassium 4.8 mmol/L (3.5-5.1); Sodium 140 mmol/L (136-145); Total Protein 7.4 gm/dl (6.0-8.3)
[2022-02-15 20:17] LABS: Troponin I High Sensitivity 4.5 pg/ml (0-20)
--- NOTE | 2022-02-15 20:26 | XRay Report ---
XR chest 1V portable CLINICAL HISTORY: weakness COMPARISON STUDY: Chest CT April 24, 2021 chest radiograph October 24, 2021. FINDINGS: Lung volumes are normal. No pneumothorax or pleural effusion is noted. Blunting of the left costophrenic is likely chronic. Cardiomediastinal silhouette is stable. There is no consolidation to suggest pneumonia. There is no evidence for pulmonary edema. IMPRESSION: No acute cardiopulmonary findings. No significant change in appearance of the chest. ACT 112: Negative or not required by law. Electronically signed by: Kevin Del Angel M.D. 02/15/2022 8:24 PM
--- NOTE | 2022-02-15 20:56 | History & Physical Report ---
Date of Service February 15, 2022 Assessment & Plan (1) Acute kidney injury: Plan: - BUN 60, creatinine 3.6. Significantly elevated from baseline. - In the setting of reported dehydration also currently being treated for UTI as outpatient. - Obtain CT A/P without contrast for renal/bladder stones or hydronephrosis. - Hold lisinopril, Lasix, renally dose medications as able. Avoid nephrotoxins. - Follow renal function on labs. - Hydrate with LRs at 150 cc/hour. Hx of HFrEF, EF normalized on echo in oct. (2) Recurrent UTI: Plan: - Currently on Keflex, culture from outpt setting on 02/07 growing klebsiella which is sensitive to Rocephin so will switch to that for now. - Obtain UA with reflex culture while here and can tailor antibiotics accordingly. (3) Hypomagnesemia: Plan: - 1.5 in ED, replete and recheck in a.m. labs. (4) Diabetes: Plan: - Hold metformin, glimepiride while inpatient. - Accu-Cheks with novolog SSI. - Diabetic/heart healthy diet. - a1C last performed in November = 6.3%. (5) CAD, multiple vessel: Plan: - s/p PCI of LM/LAD/Cx in October 2021 at [facility] [place] - Continue DAPT with Plavix, aspirin. - Continue statin, continue metoprolol in a.m. as long as BP can handle it. Hold lisinopril unitl FRANCIE resolves. (6) Chronic systolic CHF (congestive heart failure): Plan: - No evidence of volume overload today. EF normalized to 60 - 65% based on echo from October 2021. - Hold lisinopril and Lasix as above. - Strict I and O's, low-sodium diet, daily weights. - Getting fluids as above for FRANCIE. (7) Hypertension: Plan: - Holding lisinopril as above, continue metoprolol morning as long as BP can tolerate it, hold for SBP <100. (8) Dyslipidemia (high LDL; low HDL): Plan: - Continue statin. (9) Ischemic cardiomyopathy: Plan: - LV function has normalized. - Hold lisinopril. (10) Acid reflux: Plan: - Continue PPI and Pepcid. (11) Hypothyroidism: Plan: - Continue levothyroxine 137 mcg daily. (12) Spinal stenosis, lumbar region with neurogenic claudication: Plan: - Will continue gabapentin 300 mg 3 times daily, reportedly takes ibuprofen as needed for pain, hold until FRANCIE resolves. (13) Cauda equina syndrome: Plan: - December 2020, s/p lumbar decompression & fusion. - Remains mostly wheelchair-bound, ambulating slightly more with walker short distances. - Follows with urology for his neurogenic bladder, self caths. - Have ordered bladder scans every 6 hours with orders to straight cath for >300 cc. (14) Gout: Plan: - Continue allopurinol. Plan: - admit to med surg - SCDs for DVT ppx. - full code. History of Present Illness Chief Complaint: generalized weakness Primary Care Provider: Liz Kirby DO Mr. Camejo is a 71-year-old male with past medical history of CAD, HFrEF, diabetes, hypertension, hypothyroidism, dyslipidemia, GERD, cauda equina syndrome and spinal stenosis who presents today with generalized weakness. Patient states he has been generally declining since early January, however since this past weekend he has had increasing weakness, typically walks with a walker but has been unable to do so because he is too fatigued. Due to decreased energy levels and sleeping more, his p.o. intake has been very poor. He also reports new, worsening blurred vision over the past few days as well as slurred speech that was first noticed by him and family over the weekend, as well as intermittent episodes of confusion. He does have frequent UTIs, he was last seen on 02/07 for suspected UTI, a culture was done at that time and he was placed on oral antibiotics. Due to cauda equina syndrome, patient does not have sensation in his lower body but states his urine was cloudy and malodorous, which is typically what happens when he gets a UTI. In ED, he is borderline tachycardic with heart rate in 90s, otherwise vital signs within normal and stable. Labs significant for Hgb 10.8, BUN 60, creatinine 3.86. Glucose 216. Magnesium 1.5. CXR unremarkable. Allergies Allergy/AdvReac Type Severity Reaction Status Date / Time bee venom protein (honey bee) Allergy Severe EXTREME Verified 02/15/22 19:53 SWELLING--STUNG ON HAND, ARM SWELLED TO SHOULDER. Penicillins Allergy Intermediate HIGH Verified 02/15/22 19:53 FEVER, RASH (NOTED ALLERGIC TO "ANY-CILLIN" Home Medications Medication Instructions Recorded Confirmed Type diaper,brief,adult,disposable #126 ea 03/07/21 02/15/22 Rx aspirin 81 mg tablet,delayed 81 mg PO QAM 05/02/21 02/15/22 History release Mattress (Air or other) #1 ea 05/03/21 02/15/22 Rx acetaminophen 500 mg tablet 1,000 mg PO Q6H PRN 05/17/21 02/15/22 History (Tylenol Extra Strength) furosemide 40 mg tablet 40 mg PO QAM #90 tab 07/06/21 02/15/22 Rx famotidine 40 mg tablet 40 mg PO HS #90 tab 07/14/21 02/15/22 Rx cranberry 500 mg capsule 500 mg PO DAILY cap 07/26/21 02/15/22 History sennosides 8.6 mg capsule (senna) 8.6 mg PO DAILY 07/26/21 02/15/22 History allopurinol 300 mg tablet 300 mg PO QAM #90 tab 08/30/21 02/15/22 Rx nitroglycerin 0.4 mg sublingual 0.4 mg SUBLINGUAL DIRECTED PRN 09/04/21 02/15/22 Rx tablet #30 tab omeprazole 20 mg capsule,delayed 20 mg PO QAM #90 cap 09/04/21 02/15/22 Rx release Saccharomyces boulardii 250 mg 250 mg PO BID 10/24/21 02/15/22 History capsule (Probiotic (S.boulardii)) metoprolol succinate 50 mg 50 mg PO DAILY #90 tab 10/24/21 02/15/22 Rx tablet,extended release 24 hr clopidogrel 75 mg tablet 75 mg PO DAILY #30 tab 11/13/21 02/15/22 Rx gabapentin 300 mg capsule 300 mg PO TID #180 cap 12/05/21 02/15/22 Rx cetirizine 10 mg tablet 10 mg PO QAM PRN #90 tab 12/06/21 02/15/22 Rx glimepiride 2 mg tablet 2 mg PO QAM #90 tab 12/06/21 02/15/22 Rx lisinopril 5 mg tablet 5 mg PO DAILY #30 tab 01/02/22 02/15/22 Rx ondansetron HCl 4 mg tablet 4 mg PO Q8H PRN 01/02/22 02/15/22 History atorvastatin 80 mg tablet 80 mg PO QAM #90 tab 01/12/22 02/15/22 Rx metformin 1,000 mg tablet 1,000 mg PO BID #180 tab 01/17/22 02/15/22 Rx levothyroxine 137 mcg tablet 137 mcg PO DAILY #30 tab 02/07/22 02/15/22 Rx cephalexin 500 mg capsule 500 mg PO BID 10 Days #20 cap 02/09/22 02/15/22 Rx Past Med/Surg History Medical History Allergic rhinitis CAD, multiple vessel Cauda equina syndrome (12/2020) Chronic systolic CHF (congestive heart failure) Constipation Diabetes Dyslipidemia (high LDL; low HDL) GERD (gastroesophageal reflux disease) Gout History of pulmonary embolism (01/23/21) Hx of testicular cancer Hypertension Hypothyroidism Ischemic cardiomyopathy Lumbar disc herniation with radiculopathy Neurogenic bladder Neurogenic bowel Spinal stenosis, lumbar region with neurogenic claudication Urinary retention Surgical History Hx of total hip arthroplasty S/P coronary artery stent placement S/P orchiopexy 1976 Status post lumbar surgery (01/18/21) lumbar decompression bilateral medial facetectomies and foraminotomies at L3- L4, L4-L5, spinal fusion L4-L5, posterior instrumentation L4-L5, Family History Father Lung cancer Cancer brain Mother Diabetes Uncle Prostate cancer Grandmother (Paternal) Stroke Family/Other Colorectal cancer Breast cancer Myocardial infarction Grandfather (Maternal) Rheumatoid arthritis Denies family history of Ovarian cancer Social History Smoking Status: Former smoker Tobacco Type: Cigarettes Age Quit Using Tobacco: 65; packs per day: 0.5; Years Smoked: 24; Cigarettes Per Day: just a few per week; Smoking End Date: 7 yrs; Second Hand Exposure: Yes; Hx Alcohol Use: No Hx Substance Use: No Preferred Language: Hungarian Communication Ability: Effective Visual Impairment: No Limitations Hearing Ability: Normal Handicraft Or Hobby Shop Manager Required: No Beliefs That Will Affect Care: None marital status: Current Living Situation: Spouse current occupational status: retired How many Children do You have: 2 How many Children do You have Comment: live local, children and able to help with care as needed. Other Information That Helps Us Care for You: No Feels Safe at Home: Yes Safety Concerns: Feels Safe At This Time Childhood Exposure to Second-Hand Smoke: No Diet Comment: eats what he wants to , has tried to start eating "healthier" caffeine: Yes during the past year weight has: increased > 10 lbs Dental Care, Regularly: No Physical Activity Frequency: Other Physical Activity Frequency Comment: house chores Seatbelt Use: never Sunscreen Use: No Assistive Devices: Walker and Wheelchair Review of Systems Review of Systems: Constitutional: generalized weakness, fatigue; No fever/chills, myalgias, anorexia, night sweats Eyes: No diplopia, no worsening or blurred vision ENT: normal hearing, no trouble swallowing Respiratory: No cough, sputum, dyspnea at rest or on exertion Cardiovascular: No chest pain, tightness or palpitations Abdomen: No pain, nausea, vomiting, diarrhea or constipation : Denies dysuria, hematuria, increased urgency/frequency, urinary retention Musculoskeletal: No joint pain, calf pain, swelling Neurologic: No weakness, numbness/tingling, or balance problems Psychiatric: No anxiety or depression Skin: No rash or itch Physical Exam Physical Exam: General: awake, alert, no apparent distress Head: Normocephalic, atraumatic ENT: PERRL, EOMI, no pharyngeal exudate, mucous membranes moist Chest: Clear to auscultation, on room air, no adventitious breath sounds Cardiac: Regular rate and rhythm, no murmur, no JVD, normal peripheral pulses, good capillary refill Abdominal: NABS x 4 quadrants, soft, nontender to palpation, no rebound, guarding or tenderness Extremities: Normal inspection, no peripheral edema or erythema, calfs nontender to palpation Psych: Normal mood and affect Neuro: AAO x 3, strength intact bilaterally and rated 5/5, no motor deficits, speech is clear, no peripheral sensory deficits Skin: no rash or erythema Results & Data Results & Data ([facility]) Vital Signs (Past 12 Hours) Vital Signs Temp Pulse Pulse Resp BP Pulse Ox 02/15/22 19:16 90 92 02/15/22 18:52 37.4 C 94 H 20 124/76 94 02/15/22 18:50 91 H 18 92 Laboratory Results Abnormal lab results 02/15/22 02/15/22 Range/Units 19:39 19:39 RBC 3.62 L (4.7-6.1) M/uL Hgb 10.8 L (14.0-18.0) g/dL Hct 33.0 L (42-52) % MPV 10.8 H (7.4-10.4) fL Eos # (Auto) 0.51 H (0-0.5) K/uL BUN 60 H (6-23) mg/dl Creatinine 3.86 H (0.6-1.4) mg/dl Glucose 216 H (70-99(Fasting)) mg/dl Magnesium 1.5 L (1.7-2.4) mg/dl AST 10 L (13-39) U/L Diagnostic Findings Chest X-Ray 02/15/22 19:16 XR chest 1V portable CLINICAL HISTORY: weakness COMPARISON STUDY: Chest CT April 24, 2021 chest radiograph October 24, 2021. FINDINGS: Lung volumes are normal. No pneumothorax or pleural effusion is noted. Blunting of the left costophrenic is likely chronic. Cardiomediastinal silh ouette is stable. There is no consolidation to suggest pneumonia. There is no evidence for pulmonary edema. IMPRESSION: No acute cardiopulmonary findings. No significant change in appearance of the chest. ACT 112: Negative or not required by law. Electronically signed by: Kevin Del Angel M.D. 02/15/2022 8:24 PM ECG Additional Comments: Normal sinus rhythm Normal ECG When compared with ECG of 24-OCT-2021 23:01, ST no longer depressed in Anterolateral leads Nonspecific T wave abnormality no longer evident in Inferior leads T wave inversion no longer evident in Anterolateral leads. Code Status & VTE Plan Code Status Full code. Supervising Physician Co-Signing Physician Notes Attending addendum: I have physically seen this patient, have supervised the SAUNDRA's activities, and agree with the H&P unless as otherwise noted. Assessment and Plan: Acute kidney injury- Creatinine 3.86 on admission, with base 1.02 Hold lisinopril and furosemide LR at 150 mils per hour x1 L repeat laboratories in a.m. Recurrent urinary tract infection- Klebsiella growing in outpatient cultures Ceftriaxone 2 g IV daily Hypomagnesemia- Magnesium 1.5 upon admission Replete IV, and recheck laboratories in a.m. Remaining orders and notations as noted PG Care Time/CCT Total # of Minutes Spent Total Time Spent with Patient: Total time spent is greater than 50% in coordination of care (as documented) at patient's floor/unit and/or counseling patient: Coding Level of Care Code 06886 Initial Inpt Care Lvl 3 Diagnoses Acute kidney injury N17.9 CAD, multiple vessel I25.10 Chronic systolic CHF (congestive heart failure) I50.22 Hypertension I10 Dyslipidemia (high LDL; low HDL) E78.5 Ischemic cardiomyopathy I25.5 Acid reflux K21.9 Hypothyroidism E03.9 Hypothyroidism type: unspecified Diabetes E11.9 Spinal stenosis, lumbar region with neurogenic claudication M48.062 Cauda equina syndrome G83.4 Gout M10.9 Chronicity: chronic Gout etiology: unspecified cause Gout site: unspecified site Recurrent UTI N39.0 Hypomagnesemia E83.42 (1) Gout Chronicity: chronic Gout etiology: unspecified cause Gout site: unspecified site (2) Hypothyroidism Hypothyroidism type: unspecified Qualified Code(s): E03.9 - Hypothyroidism, unspecified
[2022-02-15] MEDS ORDERED: SODIUM CHLORIDE 0.9% 1000ML 1,000 ML IV ONE (21:41)
[2022-02-15] MEDS ORDERED: TAMSULOSIN HCL 0.4 MG CAP PO ONE (23:36)
[2022-02-15] MEDS ORDERED: cefTRIAXone SODIUM 1,000 MG in DEXTROSE 5% 50 ML IV ONE (23:45)
[2022-02-16] MEDS ORDERED: NITROGLYCERIN SL 0.4 MG/TAB TAB SL PRN (00:19)
[2022-02-16] MEDS ORDERED: GLUCAGON FOR INJ 1 MG VIAL SQ PRN (00:19)
[2022-02-16] MEDS ORDERED: GLUCOSE 10 TABS/TUBE PO PRN (00:19)
[2022-02-16] MEDS ORDERED: POLYETHYLENE (MIRALAX) 17 GM PACK PO PRN (00:19)
[2022-02-16] MEDS ORDERED: GLUCOSE 40% GEL 15 GM TUBE PO PRN (00:19)
[2022-02-16] MEDS ORDERED: DEXTROSE 50% 50 ML SYRINGE IV PRN (00:19)
[2022-02-16] MEDS ORDERED: ONDANSETRON INJ 2 MG/ML 2 ML VIAL IV PRN (00:19)
[2022-02-16] MEDS ORDERED: CETIRIZINE HCL 10 MG TABLET PO PRN (00:19)
[2022-02-16] MEDS ORDERED: CARBOHYDRATES FOR HYPOGLYCEMIA PO PRN (00:19)
[2022-02-16] MEDS ORDERED: ACETAMINOPHEN 500 MG TAB PO PRN (00:19)
[2022-02-16] MEDS: MAGNESIUM SULFATE / D5W 1 GM/100 ML BAG IV SCH ×2 (01:12→03:05)
[2022-02-16] MEDS: LACTATED RINGER'S 1,000 ML IV SCH ×3 (01:12→17:41)
[2022-02-16] MEDS: LEVOTHYROXINE SODIUM 137 MCG TABLET PO SCH (05:48)
[2022-02-16 06:22] LABS: Appearance Urine Clear (Clear); Bacteria Urine Automated Negative (Negative); Bilirubin Urine Negative (Negative); Blood Urine Negative (Negative); Color Urine Yellow; Epithelial Cell Urine Auto >30 /lpf (0-5); Glucose Urine UA Negative (Negative); Ketones Urine Negative (Negative); Leukocyte Esterase Urine Negative (Negative); Nitrite Urine Negative (Negative); Protein Urine 1+ (Negative); RBC Urine Automated 0-4 /hpf (0-4); Specific Gravity Urine 1.015 (1.000-1.030); Urobilinogen Urine Negative (Negative)
[2022-02-16 06:38] LABS: Basophils # (auto) 0.06 K/uL (0-0.2); Basophils % (auto) 0.7 %; Eosinophils # (auto) 0.44 K/uL (0-0.5); Eosinophils % (auto) 5.4 %; Hematocrit (blood only) 31.1 % (42-52); Hemoglobin 10.4 g/dL (14.0-18.0); Immature Granulocytes # (auto) 0.02 K/uL (0.00-0.02); Immature Granulocytes % (auto) 0.2 %; Lymphocytes # (auto) 2.12 K/uL (1.2-3.4); Lymphocytes % (auto) 25.8 %; Mean Corpuscular Hemoglobin 30.7 pg (25-34); Mean Corpuscular Hgb Conc 33.4 g/dL (32-36); Mean Corpuscular Volume 91.7 fL (80-100); Mean Platelet Volume 10.9 fL (7.4-10.4); Monocytes % (auto) 6.1 %; Neutrophils # (auto) 5.08 K/uL (1.4-6.5); Neutrophils % (auto) 61.8 %; Platelet Count 297 K/uL (130-400); RDW Coefficient of Variation 12.9 % (11.5-14.5); RDW Standard Deviation 43.1 fL (36.4-46.3); Red Blood Count 3.39 M/uL (4.7-6.1); White Blood Count 8.22 K/uL (4.8-10.8)
[2022-02-16 06:51] LABS: BUN Creatinine Ratio 16.1 (10-20); Calcium 8.8 mg/dl (8.5-10.1); Creatinine Clr Calc Pharmacy 27.5 ml/min; Est GFR (African American) 21.8 ml/min; Est GFR (Non-African American) 18.8 ml/min; Magnesium 1.9 mg/dl (1.7-2.4)
[2022-02-16] MEDS: ATORVASTATIN 40 MG TAB PO SCH (08:33)
[2022-02-16] MEDS: CLOPIDOGREL BISULFATE 75 MG TAB PO SCH (08:33)
[2022-02-16] MEDS: ASPIRIN 81 MG ECTAB PO SCH (08:33)
[2022-02-16] MEDS: allopurinoL 300 MG TAB PO SCH (08:33)
[2022-02-16] MEDS: GABAPENTIN 300 MG CAP PO SCH ×3 (08:34→21:40)
[2022-02-16] MEDS: PANTOprazole 40 MG TAB PO SCH (08:34)
[2022-02-16] MEDS: SENNA 8.6 MG TAB PO SCH (08:34)
[2022-02-16] MEDS: METOPROLOL SUCC 50MG EXT REL TAB PO SCH (08:34)
--- NOTE | 2022-02-16 08:36 | CT Scan Report ---
CT abd pelvis wo con CLINICAL HISTORY: FRANCIE, look for renal stones, hydronephrosis COMPARISON STUDY: 09/28/2021 CT DOSE: 1060.19 mGy.cm TECHNIQUE: Standard CT of the Abdomen and Pelvis was performed without IV contrast. The patient did not receive oral contrast. A dose lowering technique was utilized adhering to the principles of CHEPE Iverson FINDINGS: Lung base: The lung bases are clear. Abdominal cavity: There is no evidence for abdominal mass, adenopathy or ascites. Liver: The liver is homogeneous in attenuation on these limited noncontrast images.. Spleen: The spleen is homogeneous in attenuation on these limited noncontrast images. Pancreas: The pancreas is homogeneous in attenuation on these limited noncontrast images. Gall Bladder: The gallbladder is contracted due to the patient's nonfasting state. Adrenal glands: The adrenal glands are normal in size and attenuation on these limited noncontrast im ages. Kidneys: The kidneys are homogeneous in attenuation on these limited noncontrast images. There is no evidence for gross renal mass, calculus or hydronephrosis bilaterally. However, there is mild bilater al hydroureter with fluid seen along the left ureter. This is probably physiologic due to the bladder wall thickening present. No definite ureteral calculi are identified. Bowel: The bowel loops are normally placed within the abdomen and pelvis without evidence for dilatat ion or obstruction. There is no evidence for mass lesion. There is no residual fecal impaction. There are no inflammatory changes present. There is no evidence for free air. There is no evidence for an inflamed appendix. Bladder: There is again imaging artifact present involving the floor the bladder related to bilateral hip replacements. There is mild diffuse thickening of bladder wall characteristic of chronic bladder outlet obstruction. The presence of a calculus at the UVJ cannot be excluded based on this study. : There is no evidence for pelvic mass or adenopathy. The prostate cannot be well evaluated due to imaging artifact present. Vasculature: There is no evidence for focal aneurysmal dilatation of the abdominal aorta. There is at herosclerotic calcification present. Osseous structures: There is no acute osseous pathology. Bones are osteopenic. Degenerative changes a re present within the lumbar spine with evidence for previous internal fixation. The findings are paula picious for lumbar canal stenosis. There are again bilateral total hip replacements. IMPRESSION: 1. Mild bilateral hydroureter, left greater than right with no ureteral calculi identified. There is again limited evaluation of the UVJ due to bilateral hip replacements. The findings are probably phys iologic related to the diffuse bladder wall thickening present. 2. No renal calculi or hydronephrosis. 3. Diffuse thickening of the bladder wall which is probably related to chronic bladder outlet obstruc tion. 4. No other evidence for acute intra-abdominal or pelvic abnormality on these limited noncontrast luis fernando ges. 5. Additional nonacute findings are delineated above. ACT 112: Negative or not required by law. Electronically signed by: Marquis Ramires M.D. 02/16/2022 8:34 AM
[2022-02-16] MEDS: INSULIN ASPART PER UNIT SC SCH ×4 (08:39→21:38)
[2022-02-16] MEDS ORDERED: cefTRIAXone SODIUM 1,000 MG in DEXTROSE 5% 50 ML IV SCH (09:00)
--- NOTE | 2022-02-16 15:27 | Hospitalist Progress Note ---
Date of Service February 16, 2022 Assessment & Plan (1) Acute kidney injury: Plan: - BUN 60, creatinine 3.86. Significantly elevated from baseline. - In the setting of reported dehydration also currently being treated for UTI as outpatient. - Obtain CT A/P without contrast for renal/bladder stones or hydronephrosis (unremarkable) - Hold lisinopril, Lasix, renally dose medications as able. Avoid nephrotoxins. - Receiving IVF hydration w/ LR, will reduce rate to 100 ml/hr - Renal function slowly improving, will observe another 24-48 hrs to ensure continues to normalize (2) Recurrent UTI: Plan: - Currently on Keflex, culture from outpt setting on 02/07 growing klebsiella which is sensitive to Rocephin (and Cefazolin so Keflex would also work), but admitting team switched to Rocephin - Obtain UA with reflex culture while here and can tailor antibiotics accordingly. - Repeat UA appears unimpressive, will continue Rocephin x 2 more days for total of 10 days of treatment - IVF as noted (3) Hypomagnesemia: Plan: - 1.5 in ED, repleted and normalized today at 1.9 (4) Diabetes: Plan: - Hold metformin, glimepiride while inpatient. - Accu-Cheks with novolog SSI. - Diabetic/heart healthy diet. - a1C last performed in November = 6.3%. (5) CAD, multiple vessel: Plan: - s/p PCI of LM/LAD/Cx in October 2021 at [facility] [place]. - Continue DAPT with Plavix, aspirin. - Continue statin, continue metoprolol in a.m. as long as BP can handle it. Hold lisinopril until FRANCIE resolves. (6) Chronic systolic CHF (congestive heart failure): Plan: - No evidence of volume overload today. EF normalized to 60 - 65% based on echo from October 2021. - Hold lisinopril and Lasix as above. - Strict I and O's, low-sodium diet, daily weights. - Receiving IV fluids, will continue to monitor volume status closely (7) Hypertension: Plan: - Holding lisinopril, continue metoprolol morning as long as BP can tolerate it, hold for SBP <100 or HR <55. (8) Acid reflux: Plan: - Continue PPI and Pepcid. (9) Hypothyroidism: Plan: - Continue levothyroxine 137 mcg daily. (10) Cauda equina syndrome: Plan: - December 2020, s/p lumbar decompression & fusion. - Remains mostly wheelchair-bound, ambulating slightly more with walker short distances. - Follows with urology for his neurogenic bladder, self caths. - Have ordered bladder scans every 6 hours with orders to straight cath for >300 cc. - Continue Gabapentin Plan: Heparin for DVT prophylaxis Repeat basic metabolic panel in the morning Continue IV fluid hydration and holding nephrotoxic agents Above plan of care to be discussed with attending Admission and Anticipated Discharge Date Admission Date: February 15, 2022 Supervising Physician Co-Signing Physician Notes reviewed and agree sharmila Sharpe PAC Subjective Patient was seen on rounds this morning. He verbalizes no complaints/concerns at this time. He denies dyspnea, chest pain, n/v/d, f/c, headache. He was admitted yesterday with FRANCIE (creatinine of 3.86) which was felt to be due to dehydration. Pt admittedly has had decreased oral intake as well as diarrhea. Is currently on second round of antibiotic treatment for back to back Klebsiella UTIs this month. Review of Systems Review of Systems: All systems reviewed and are unremarkable except as noted in HPI and below. Denies fever, chills, fatigue, headache, nasal congestion, sore throat, cough, chest pain, shortness of breath, palpitations, orthopnea, PND, abdominal pain, n/v/d, constipation, dysuria, hematuria, frequency, back pain, joint pain or swe lling, easy bruising or bleeding, skin lesions or rashes. Physical Exam Physical Exam: GENERAL: 71 yo well-developed, well-nourished pleasant WM. NAD. LUNGS: Clear to auscultation bilaterally. No W/R/R. CARDIOVASCULAR: Regular rate and rhythm. ABDOMEN: Soft, non-tender and non-distended. BS normoactive x 4 quad. EXTREMITIES: No edema. Non-tender. Peripheral pulses +2/4. NEUROLOGIC: A&O x3. PSYCHIATRIC: Cooperative. Appropriate mood and affect. SKIN: Warm, dry, intact. No rashes or lesions. Results & Data Results & Data ([facility]) Vital Signs (Past 12 Hours) Vital Signs Temp Pulse Resp BP Pulse Ox 02/16/22 06:43 36.4 C L 87 18 116/71 94 Laboratory Results 02/16/22 05:54 02/16/22 05:54 Diagnostic Findings Chest X-Ray 02/15/22 19:16 XR chest 1V portable CLINICAL HISTORY: weakness COMPARISON STUDY: Chest CT April 24, 2021 chest radiograph October 24, 2021. FINDINGS: Lung volumes are normal. No pneumothorax or pleural effusion is noted. Blunting of the left costophrenic is likely chronic. Cardiomediastinal silhouette is stable. There is no consolidation to suggest pneumonia. There is no evidence for pulmonary edema. IMPRESSION: No acute cardiopulmonary findings. No significant change in appearance of the chest. ACT 112: Negative or not required by law. Electronically signed by: Kevin Del Angel M.D. 02/15/2022 8:24 PM Abdomen/Pelvis CT 02/15/22 21:53 CT abd pelvis wo con CLINICAL HISTORY: FRANCIE, look for renal stones, hydronephrosis COMPARISON STUDY: 09/28/2021 CT DOSE: 1060.19 mGy.cm TECHNIQUE: Standard CT of the Abdomen and Pelvis was performed without IV contrast. The patient did not receive oral contrast. A dose lowering technique was utilized adhering to the principles of ALARA. FINDINGS: Lung base: The lung bases are clear. Abdominal cavity: There is no evidence for abdominal mass, adenopathy or ascites. Liver: The liver is homogeneous in attenuation on these limited noncontrast images.. Spleen: The spleen is homogeneous in attenuation on these limited noncontrast i mages. Pancreas: The pancreas is homogeneous in attenuation on these limited noncontrast images. Gall Bladder: The gallbladder is contracted due to the patient's nonfasting state. Adrenal glands: The adrenal glands are normal in size and attenuation on these limited noncontrast images. Kidneys: The kidneys are homogeneous in attenuation on these limited noncontrast images. There is no evidence for gross renal mass, calculus or hydronephrosis bilaterally. However, there is mild bilateral hydroureter with fluid seen along the left ureter. This is probably physiologic due to the bladder wall thickening present. No definite ureteral calculi are identified. Bowel: The bowel loops are normally placed within the abdomen and pelvis without evidence for dilatation or obstruction. There is no evidence for mass lesion. There is no residual fecal impaction. There are no inflammatory changes present. There is no evidence for free air. There is no evidence for an inflamed appendix. Bladder: There is again imaging artifact present involving the floor the bladder related to bilateral hip replacements. There is mild diffuse thickening of bladder wall characteristic of chronic bladder outlet obstruction. The presence of a calculus at the UVJ cannot be excluded based on this study. : There is no evidence for pelvic mass or adenopathy. The prostate cannot be well evaluated due to imaging artifact present. Vasculature: There is no evidence for focal aneurysmal dilatation of the abdominal aorta. There is atherosclerotic calcification present. Osseous structures: There is no acute osseous pathology. Bones are osteopenic. Degenerative changes are present within the lumbar spine with evidence for previous internal fixation. The findings are suspicious for lumbar canal stenos is. There are again bilateral total hip replacements. IMPRESSION: 1. Mild bilateral hydroureter, left greater than right with no ureteral calculi identified. There is again limited evaluation of the UVJ due to bilateral hip replacements. The findings are probably physiologic related to the diffuse bladder wall thickening present. 2. No renal calculi or hydronephrosis. 3. Diffuse thickening of the bladder wall which is probably related to chronic bladder outlet obstruction. 4. No other evidence for acute intra-abdominal or pelvic abnormality on these limited noncontrast images. 5. Additional nonacute findings are delineated above. ACT 112: Negative or not required by law. Electronically signed by: Marquis Ramires M.D. 02/16/2022 8:34 AM PG Care Time/CCT Total # of Minutes Spent Total Time Spent with Patient: Total time spent is greater than 50% in coordination of care (as documented) at patient's floor/unit and/or counseling patient: Coding Level of Care Code 13884 Subseq Hosp Care Lvl 2 Diagnoses Acute kidney injury N17.9 Recurrent UTI N39.0 Hypomagnesemia E83.42 Diabetes E11.9 CAD, multiple vessel I25.10 Chronic systolic CHF (congestive heart failure) I50.22 Hypertension I10 Acid reflux K21.9 Hypothyroidism E03.9 Hypothyroidism type: unspecified Cauda equina syndrome G83.4 (1) Hypothyroidism Hypothyroidism type: unspecified Qualified Code(s): E03.9 - Hypothyroidism, unspecified
--- NOTE | 2022-02-16 15:40 | Electrocardiogram Report ---
Test Reason : Blood Pressure : / mmHG Vent. Rate : 087 BPM Atrial Rate : 087 BPM P-R Int : 160 ms QRS Dur : 088 ms QT Int : 356 ms P-R-T Axes : 066 006 027 degrees QTc Int : 428 ms Normal sinus rhythm Nonspecific ST and T wave abnormality Abnormal ECG When compared with ECG of 24-OCT-2021 23:01, ST no longer depressed in Anterolateral leads Nonspecific T wave abnormality no longer evident in Inferior leads T wave inversion no longer evident in Anterolateral leads Confirmed by Lino Salmeron ([id number]) on 02/16/2022 3:40:13 PM Referred By: REFERRED SELF Confirmed By:Lino Salmeron
[2022-02-16] MEDS ORDERED: TAMSULOSIN HCL 0.4 MG CAP PO SCH (21:00)
[2022-02-16] MEDS ORDERED: FAMOTIDINE 40 MG TABLET PO SCH (21:00)
[2022-02-16] MEDS: HEPARIN SOD 5,000 UNIT/0.5 ML VIAL SQ SCH (21:46)
[2022-02-17] MEDS ORDERED: cefTRIAXone SODIUM 2,000 MG in DEXTROSE 5% 50 ML IV SCH
[2022-02-17] MEDS: LACTATED RINGER'S 1,000 ML IV SCH ×2 (03:24→14:30)
[2022-02-17] MEDS: LEVOTHYROXINE SODIUM 137 MCG TABLET PO SCH (05:55)
[2022-02-17 07:37] LABS: BUN Creatinine Ratio 18.9 (10-20); Calcium 9.2 mg/dl (8.5-10.1); Creatinine Clr Calc Pharmacy 37.4 ml/min; Est GFR (African American) 31.6 ml/min; Est GFR (Non-African American) 27.3 ml/min; Magnesium 1.6 mg/dl (1.7-2.4); Potassium 4.8 mmol/L (3.5-5.1)
[2022-02-17] MEDS: METOPROLOL SUCC 50MG EXT REL TAB PO SCH (08:34)
[2022-02-17] MEDS: PANTOprazole 40 MG TAB PO SCH (08:34)
[2022-02-17] MEDS: SENNA 8.6 MG TAB PO SCH (08:34)
[2022-02-17] MEDS: GABAPENTIN 300 MG CAP PO SCH ×2 (08:35→13:13)
[2022-02-17] MEDS: CLOPIDOGREL BISULFATE 75 MG TAB PO SCH (08:35)
[2022-02-17] MEDS: allopurinoL 300 MG TAB PO SCH (08:36)
[2022-02-17] MEDS: ATORVASTATIN 40 MG TAB PO SCH (08:36)
[2022-02-17] MEDS: ASPIRIN 81 MG ECTAB PO SCH (08:36)
[2022-02-17] MEDS: HEPARIN SOD 5,000 UNIT/0.5 ML VIAL SQ SCH (08:40)
[2022-02-17] MEDS: INSULIN ASPART PER UNIT SC SCH ×2 (08:40→12:59)
[2022-02-17] MEDS: MAGNESIUM SULFATE / D5W 1 GM/100 ML BAG IV SCH ×2 (10:15→12:18)
--- NOTE | 2022-02-17 15:12 | Discharge Summary ---
Date of Service February 17, 2022 Admission HPI Per Admitting Provider Mr. Camejo is a 71-year-old male with past medical history of CAD, HFrEF, diabetes, hypertension, hypothyroidism, dyslipidemia, GERD, cauda equina syndrome and spinal stenosis who presents today with generalized weakness. P atient states he has been generally declining since early January, however since this past weekend he has had increasing weakness, typically walks with a walker but has been unable to do so because he is too fatigued. Due to decreased energy levels and sleeping more, his p.o. intake has been very poor. He also reports new, worsening blurred vision over the past few days as well as slurred speech that was first noticed by him and family over the weekend, as well as intermittent episodes of confusion. He does have frequent UTIs, he was last seen on 02/07 for suspected UTI, a culture was done at that time and he was placed on oral antibiotics. Due to cauda equina syndrome, patient does not have sensation in his lower body but states his urine was cloudy and malodorous, which is typically what happens when he gets a UTI. In ED, he is borderline tachycardic with heart rate in 90s, otherwise vital signs within normal and stable. Labs significant for Hgb 10.8, BUN 60, creatinine 3.86. Glucose 216. Magnesium 1.5. CXR unremarkable. Principal Diagnosis 1. Prerenal FRANCIE 2. Severe dehydration 3. Hypomagnesemiareplaced Discharge Exam GENERAL: 71 yo well-developed, well-nourished pleasant WM. NAD. LUNGS: Clear to auscultation bilaterally. No W/R/R. CARDIOVASCULAR: Regular rate and rhythm. ABDOMEN: Soft, non-tender and non-distended. BS normoactive x 4 quad. EXTREMITIES: No edema. Non-tender. Peripheral pulses +2/4. NEUROLOGIC: A&O x3. PSYCHIATRIC: Cooperative. Appropriate mood and affect. SKIN: Warm, dry, intact. No rashes or lesions. Discharge Data Allergies Allergy/AdvReac Type Severity Reaction Status Date / Time bee venom protein (honey bee) Allergy Severe EXTREME Verified 02/15/22 19:53 SWELLING--STUNG ON HAND, ARM SWELLED TO SHOULDER. Penicillins Allergy Intermediate HIGH Verified 02/15/22 19:53 FEVER, RASH (NOTED ALLERGIC TO "ANY-CILLIN" Consultations 02/15/22 20:46 ED Decision to Admit Stat Ordered Studies Chest X-Ray 02/15/22 19:16 XR chest 1V portable CLINICAL HISTORY: weakness COMPARISON STUDY: Chest CT April 24, 2021 chest radiograph October 24, 2021. FINDINGS: Lung volumes are normal. No pneumothorax or pleural effusion is noted. Blunting of the left costophrenic is likely chronic. Cardiomediastinal silhouette is stable. There is no consolidation to suggest pneumonia. There is no evidence for pulmonary edema. IMPRESSION: No acute cardiopulmonary findings. No significant change in appearance of the chest. ACT 112: Negative or not required by law. Electronically signed by: Kevin Del Angel M.D. 02/15/2022 8:24 PM Abdomen/Pelvis CT 02/15/22 21:53 CT abd pelvis wo con CLINICAL HISTORY: FRANCIE, look for renal stones, hydronephrosis COMPARISON STUDY: 09/28/2021 CT DOSE: 1060.19 mGy.cm TECHNIQUE: Standard CT of the Abdomen and Pelvis was performed without IV contrast. The patient did not receive oral contrast. A dose lowering technique was utilized adhering to the principles of ALARA. FINDINGS: Lung base: The lung bases are clear. Abdominal cavity: There is no evidence for abdominal mass, adenopathy or ascites. Liver: The liver is homogeneous in attenuation on these limited noncontrast images.. Spleen: The spleen is homogeneous in attenuation on these limited noncontrast images. Pancreas: The pancreas is homogeneous in attenuation on these limited noncontrast images. Gall Bladder: The gallbladder is contracted due to the patient's nonfasting state. Adrenal glands: The adrenal glands are normal in size and attenuation on these limited noncontrast images. Kidneys: The kidneys are homogeneous in attenuation on these limited noncontrast images. There is no evidence for gross renal mass, calculus or hydronephrosis bilaterally. However, there is mild bilateral hydroureter with fluid seen along the left ureter. This is probably physiologic due to the bladder wall thickening present. No definite ureteral calculi are identified. Bowel: The bowel loops are normally placed within the abdomen and pelvis without evidence for dilatation or obstruction. There is no evidence for mass lesion. There is no residual fecal impaction. There are no inflammatory changes present. There is no evidence for free air. There is no evidence for an inflamed appendix. Bladder: There is again imaging artifact present involving the floor the bladder related to bilateral hip replacements. There is mild diffuse thickening of bladder wall characteristic of chronic bladder outlet obstruction. The presence of a calculus at the UVJ cannot be excluded based on this study. : There is no evidence for pelvic mass or adenopathy. The prostate cannot be well evaluated due to imaging artifact present. Vasculature: There is no evidence for focal aneurysmal dilatation of the abdominal aorta. There is atherosclerotic calcification present. Osseous structures: There is no acute osseous pathology. Bones are osteopenic. Degenerative changes are present within the lumbar spine with evidence for previous internal fixation. The findings are suspicious for lumbar canal stenosis. There are again bilateral total hip replacements. IMPRESSION: 1. Mild bilateral hydroureter, left greater than right with no ureteral calculi identified. There is again limited evaluation of the UVJ due to bilateral hip replacements. The findings are probably physiologic related to the diffuse bladder wall thickening present. 2. No renal calculi or hydronephrosis. 3. Diffuse thickening of the bladder wall which is probably related to chronic bladder outlet obstruction. 4. No other evidence for acute intra-abdominal or pelvic abnormality on these limited noncontrast images. 5. Additional nonacute findings are delineated above. ACT 112: Negative or not required by law. Electronically signed by: Marquis Ramires M.D. 02/16/2022 8:34 AM Hospital Course (1) Acute kidney injury: - BUN 60, creatinine 3.86. Significantly elevated from baseline. - In the setting of reported dehydration also currently being treated for UTI as outpatient. - Obtain CT A/P without contrast for renal/bladder stones or hydronephrosis (unremarkable) - Hold lisinopril, Lasix, renally dose medications as able. Avoid nephrotoxins. - Receiving IVF hydration w/ LR @ 150 ml/hr, reduced rate to 100 ml/hr on 02/16 - Renal function significantly improved from 3.86 down to 2.33 today - Will continue holding Lasix and Lisinopril, cap fluids and d/c home today with plans for him to continue hydrating at home and f/u labs on 02/20 (2) Recurrent UTI: - Currently on Keflex, culture from outpt setting on 02/07 growing klebsiella which is sensitive to Rocephin (and Cefazolin so Keflex would also w ork), but admitting team switched to Rocephin - Obtain UA with reflex culture while here and can tailor antibiotics accordingly. - Repeat UA appears unimpressive, will continue Rocephin x 2 more days for total of 10 days of treatment - IVF given (3) Hypomagnesemia: - 1.5 in ED, repleted and normalized to 1.9 on 02/16 - Repeat mag today 1.6, additional replacement ordered - Likely d/t nutritional/poor oral intake recently, could consider OTC supplement (4) Diabetes: - Hold metformin, glimepiride while inpatient. - Accu-Cheks with novolog SSI. - Diabetic/heart healthy diet. - a1C last performed in November = 6.3%. - Can resume Metformin on (5) CAD, multiple vessel: - s/p PCI of LM/LAD/Cx in October 2021 at [facility] [place]. - Continue DAPT with Plavix, aspirin. - Continue statin, continue metoprolol in a.m. as long as BP can handle it. Hold lisinopril unitl FRANCIE resolves. (6) Chronic systolic CHF (congestive heart failure): - No evidence of volume overload today. EF normalized to 60 - 65% based on echo from October 2021. - Hold lisinopril and Lasix as above. - Strict I and O's, low-sodium diet, daily weights. - Received IVF but remains compensated from CHF standpoint - Continue holding GRIS and diuretic until f/u labs obtained 02/20 (7) Hypertension: - Held Lisinopril d/t FRANCIE, continued on metoprolol - Continue holding Lisinopril until f/u labs ensure creatinine has normalized (8) Acid reflux: - Continue PPI and Pepcid. (9) Hypothyroidism: - Continue levothyroxine 137 mcg daily. (10) Cauda equina syndrome: - December 2020, s/p lumbar decompression & fusion. - Remains mostly wheelchair-bound, ambulating slightly more with walker short distances. - Follows with urology for his neurogenic bladder, self caths. - Continued on Gabapentin Patient's IV fluids were capped after he completed current bag of LR that was hanging when I rounded on him this morning. He is tolerating oral intake, denies diarrhea. At this point I do believe that he would be able to continue orally rehydrating at home. We will continue holding the loop diuretic as well as his lisinopril until his creatinine has normalized. He will obtain follow-up labs on 02/20/[address] Kirby. I have instructed patient to contact his primary care physician's office on Saturday in order to set up a follow-up on Saturday or at the latest. He is deemed medically stable for discharge home today. Above plan of care has been discussed with attending physician, Dr. Duran, who has also seen and evaluated this patient and is in agreement with the aforementioned. I have provided an update to his via phone. Total Time Total Time Spent Total Time Spent (In Minutes): >30 minutes Discharge Plan Discharge Items Patient Disposition: Home - Self-Care Reason For Visit: FRANCEI, UTI Discharge Diagnosis: Dehydration causing decreased kidney function Activity: Resume your previous activity Non-emergency contact: Primary Care Provider Call non-emergency contact if: you have any medication questions and your symptoms worsen Follow-up/Referrals: Liz Kirby, DO [Primary Care Provider] - (Please ensure to contact Dr. Aren hickman's office on Saturday to schedule a follow up to see her in the office on Wednesday 02/21. ) Diet: Carb Consistent or DM2 Ambulatory Orders: Basic Metabolic Panel (Routine) Timeframe: [id number] Location: Determined by Patient Ordered By: Emilia Rodriguez Attending Provider Instructions: You were hospitalized due to generalized weakness which was felt to be related to severe dehydration likely related to your recent symptoms of diarrhea and decreased fluid intake. Your dehydration inadvertently affected your kidneys and made them not function properly. In order to correct this, you were given intravenous fluids and also your Lasix and Lisinopril (both medication that can have an adverse effect on the kidneys) were also placed on hold. Your kidneys are slowly returning to their normal function with holding these medications and getting the IV fluids. At this point, your fluids have been stopped (as too much fluid could cause you to go into heart failure). But we want to continue to encourage you to hydrate orally with water at home at least 60-80 ounces per day. We are going to continue holding your Lasix and Lisinopril until your kidney function normalizes. You will need to have follow up lab work on 02/20/22. A script has been given to you. We will send a copy to your primary care doctor. Please ensure to contact Dr. Kirby's office on Saturday to schedule a follow up to see her in the office on Wednesday 02/21. Please complete the course of Keflex that has been prescribed to your for your urinary tract infection. Your remaining medications can be taken as prescribed with exception of HOLDING your Lasix and Lisinopril. You are being started on a new medication called Flomax 0.4mg to be taken once a day before bed. A script has been sent to your pharmacy. This medication is to help relax the smooth muscle in your urinary tract and allow urine to flow better past your prostate. In the event of any questions or concerns, please contact the nonemergency number listed on your discharge paperwork. In the event of a medical emergency, call 911. Pending Studies at Discharge: No Stand-Alone Forms: My [facility], Smoking Cessation Medications and DC Order Prescriptions: New tamsulosin 0.4 mg Capsule 0.4 mg PO HS Qty: 30 RF: 0 Continued (DME) Mattress (Air or other) Misc See Rx Instructions .Route Qty: 1 RF: 0 famotidine 40 mg tablet 40 mg PO HS Qty: 90 RF: 1 allopurinol 300 mg tablet 300 mg PO QAM Qty: 90 RF: 1 metoprolol succinate 50 mg tablet extended release 24 hr 50 mg PO DAILY Qty: 90 RF: 3 clopidogrel 75 mg tablet 75 mg PO DAILY Qty: 30 RF: 5 gabapentin 300 mg capsule 300 mg PO TID Qty: 180 RF: 1 cetirizine 10 mg tablet 10 mg PO QAM PRN (Reason: Seasonal Allergies) Qty: 90 RF: 1 glimepiride 2 mg tablet 2 mg PO QAM Qty: 90 RF: 1 atorvastatin 80 mg tablet 80 mg PO QAM Qty: 90 RF: 1 metformin 1,000 mg tablet 1,000 mg PO BID Qty: 180 RF: 1 levothyroxine 137 mcg tablet 137 mcg PO DAILY Qty: 30 RF: 2 cephalexin 500 mg capsule 500 mg PO BID 10 Days Qty: 20 RF: 0 (DME) diaper,brief,adult,disposable Misc See Rx Instructions .ROUTE .MEDSUPPLY Qty: 126 RF: 3 senna 8.6 mg capsule 8.6 mg PO DAILY RF: 0 cranberry 500 mg capsule 500 mg PO DAILY RF: 0 nitroglycerin 0.4 mg tablet, sublingual 0.4 mg sublingual DIRECTED PRN (Reason: Chest Pain) Qty: 30 RF: 2 omeprazole 20 mg capsule,delayed release(DR/EC) 20 mg PO QAM Qty: 90 RF: 1 ondansetron HCl 4 mg tablet 4 mg PO Q8H PRN (Reason: Nausea And Vomiting) RF: 0 aspirin 81 mg tablet,delayed release (DR/EC) 81 mg PO QAM RF: 0 acetaminophen [Tylenol Extra Strength] 500 mg Tablet 1,000 mg PO Q6H PRN (Reason: fever/Pain) RF: 0 Saccharomyces boulardii [Probiotic (S.boulardii)] 250 mg Capsule 250 mg PO BID RF: 0 Discontinued furosemide 40 mg tablet 40 mg PO QAM Qty: 90 RF: 1 lisinopril 5 mg tablet 5 mg PO DAILY Qty: 30 RF: 2 Discharge Orders: Discharge Order (Routine); Ordered 02/17/22 Ordered By: Emilia Machuca/Other Patient Handouts: Acute Kidney Failure Dc, Hypomagnesemia Dc Admission Data Admit Date/Time: 02/15/22 21:53 Attending Provider: Houston Duran Admit Provider: Filemon Quiroga Primary Care Provider: Liz Kirby Other Providers: Filemon Quiroga Other Interventions: Discharge Summary Assessment (RN) Last Done: 02/17/22 15:31 Supervising Physician Co-Signing Physician Notes I personally examined the patient and verified all constantino points of history and exam, discussed case, and agree with decision making with Angelica Sharpe PAC feels up to going home vitals noted nad heent nc at mmm breathing unlabored no accessory muscles good effort skin no rashes no pallor or icterus ARF - improving. appearing predominantly prerenal and now eating and drinking well. Cr improving - willing to have outpt labs and close follo wup - safe for home. hold lasix and lisinopril until improves further, BMP ~2-3 days, PCP ~3-4 days otherwise as above Coding Level of Care Code D/C DAY MANAGEMENT >30 MINS Diagnoses Acute kidney injury N17.9 Recurrent UTI N39.0 Hypomagnesemia E83.42 Diabetes E11.9 CAD, multiple vessel I25.10 Chronic systolic CHF (congestive heart failure) I50.22 Hypertension I10 Acid reflux K21.9 Hypothyroidism E03.9 Hypothyroidism type: unspecified Cauda equina syndrome G83.4
== END 2022-02-17 16:14 | disposition home or self-care (01) | DRG 683 ==
LOC: ED 18:49 → 3W 21:53 → SUATTDRO 21:53 → 3W 22:51

== ENCOUNTER 2022-06-26 18:57 | Inpatient (IN) ==
[2022-06-26 19:20] LABS: Basophils # (auto) 0.07 K/uL (0-0.2); Basophils % (auto) 0.6 %; Eosinophils # (auto) 0.09 K/uL (0-0.50); Eosinophils % (auto) 0.7 %; Hematocrit (blood only) 36.2 % (40.1-51.0); Hemoglobin 12.2 g/dl (14.0-18.0); Immature Granulocytes # (auto) 0.05 K/uL (0.00-0.02); Immature Granulocytes % (auto) 0.4 %; Lymphocytes # (auto) 1.03 K/uL (1.2-3.4); Lymphocytes % (auto) 8.3 %; Mean Corpuscular Hemoglobin 30.5 pg (25.0-34.0); Mean Corpuscular Hgb Conc 33.7 g/dL (32.0-36.0); Mean Corpuscular Volume 90.5 fL (80.0-100.0); Mean Platelet Volume 10.8 fL (9.4-12.4); Monocytes # (auto) 1.34 K/uL (0.24-0.82); Monocytes % (auto) 10.8 %; Neutrophils # (auto) 9.88 K/uL (1.4-6.5); Neutrophils % (auto) 79.2 %; Platelet Count 247 K/uL (130-400); RDW Coefficient of Variation 13.7 % (11.5-14.5); RDW Standard Deviation 45.3 fL (36.4-46.3); White Blood Count 12.46 K/ul (4.8-10.8)
[2022-06-26 19:36] LABS: INR 1.1 (0.9-1.1); Partial Thromboplastin Time 26.6 Seconds (21.0-31.0); Prothrombin Time 11.4 Seconds (9.0-12.0)
[2022-06-26 19:53] LABS: Alanine Aminotransferase 10 U/L (7-52); Albumin Globulin Ratio 1.5 (0.9-2); Albumin Level 4.1 gm/dl (3.4-5.0); Alkaline Phosphatase 73 U/L (34-104); Anion Gap 11 (3-11); Aspartate Aminotransferase 9 U/L (13-39); BUN Creatinine Ratio 13.6 (10-20); Bilirubin,Total 0.9 mg/dl (0.2-1.0); Blood Urea Nitrogen 20 mg/dl (6-23); Calcium 9.1 mg/dl (8.5-10.1); Carbon Dioxide 27 mmol/L (21-32); Chloride 100 mmol/L (98-107); Est GFR (African American) 55.2 ml/min; Est GFR (Non-African American) 47.7 ml/min; Globulin 2.8 gm/dl (2.5-4.0); Glucose 145 mg/dl (70-99(Fasting)); Potassium 4.2 mmol/L (3.5-5.1); Sodium 138 mmol/L (136-145); Total Protein 6.9 gm/dl (6.0-8.3); Troponin I High Sensitivity 11.7 pg/ml (0-20)
[2022-06-26 20:04] LABS: Influenza A virus by PCR Negative (Neg); Influenza B virus by PCR Negative (Neg); RSV by PCR Negative (Neg); SARS CoV2 RNA(COVID-19) InHosp NEGATIVE (Negative)
[2022-06-26] MEDS ORDERED: CEFEPIME 2,000 MG/20 ML VIAL IV STA (22:10)
[2022-06-26] MEDS ORDERED: SODIUM CHLORIDE 0.9% 1000ML 1,000 ML IV ONE (22:12)
[2022-06-26 23:26] LABS: Appearance Urine Turbid (Clear); Bacteria Urine Automated Negative (Negative); Bilirubin Urine Negative (Negative); Blood Urine 2+ (Negative); Color Urine Yellow; Epithelial Cell Urine Auto >30 /lpf (0-5); Glucose Urine UA Negative (Negative); Ketones Urine Negative (Negative); Leukocyte Esterase Urine 3+ (Negative); Nitrite Urine Negative (Negative); Protein Urine 3+ (Negative); RBC Urine Automated 0-4 /hpf (0-4); Specific Gravity Urine 1.012 (1.000-1.030); Urobilinogen Urine Negative (Negative); WBC Urine Automated >30 /hpf (0-5)
[2022-06-26 23:48] LABS: Cast Urine Automated 0 /lpf (0-5)
--- NOTE | 2022-06-27 00:01 | Emergency Department Note ---
History of Present Illness General Chief complaint: Chest Pain Stated complaint: FEVER, ABDOMINAL PAIN, CHEST PAIN Time Seen by Provider: 06/26/22 22:09 History of Present Illness 71-year-old male presents to the ED with a chief complaint of a fever at home of 103, some headaches, dizziness, some mild chest discomfort and cloudy urine. He has had symptoms similar to this in the past related to UTIs and sepsis. No vomiting or diarrhea. No shortness of breath. No other complaints at this time. Nothing makes them better. Patient performs self-catheterization on a regular basis and has frequent UTIs. He has had the symptoms for a couple of days. Worse today. Home Medications Medication Instructions Recorded Confirmed Type diaper,brief,adult,disposable #126 ea 03/07/21 04/20/22 Rx aspirin 81 mg tablet,delayed 81 mg PO QAM 05/02/21 06/26/22 History release Mattress (Air or other) #1 ea 05/03/21 04/20/22 Rx acetaminophen 500 mg tablet 1,000 mg PO Q6H PRN fever/Pain 05/17/21 06/26/22 History (Tylenol Extra Strength) sennosides 8.6 mg capsule (senna) 8.6 mg PO DAILY 07/26/21 06/26/22 History nitroglycerin 0.4 mg sublingual 0.4 mg sublingual DIRECTED PRN 09/04/21 06/26/22 Rx tablet Chest Pain #30 tabs Saccharomyces boulardii 250 mg 250 mg PO BID 10/24/21 06/26/22 History capsule (Probiotic (S.boulardii)) metoprolol succinate 50 mg 50 mg PO DAILY #90 tabs 10/24/21 06/26/22 Rx tablet,extended release 24 hr gabapentin 300 mg capsule 300 mg PO TID #180 caps 12/05/21 06/26/22 Rx ondansetron HCl 4 mg tablet 4 mg PO Q8H PRN Nausea And Vomiting 01/02/22 06/26/22 History atorvastatin 80 mg tablet 80 mg PO QAM #90 tabs 01/12/22 06/26/22 Rx metformin 1,000 mg tablet 1,000 mg PO BID #180 tabs 01/17/22 06/26/22 Rx allopurinol 300 mg tablet 300 mg PO QAM #90 tabs 02/23/22 06/26/22 Rx omeprazole 20 mg capsule,delayed 20 mg PO QAM #90 caps 02/23/22 06/26/22 Rx release lisinopril 5 mg tablet 5 mg PO DAILY #90 tabs 04/10/22 06/26/22 Rx famotidine 40 mg tablet 40 mg PO HS #90 tabs 04/18/22 06/26/22 Rx levothyroxine 137 mcg tablet 137 mcg PO DAILY #90 tabs 05/07/22 06/26/22 Rx tamsulosin 0.4 mg capsule 0.4 mg PO HS #90 caps 05/14/22 06/26/22 Rx clopidogrel 75 mg tablet 75 mg PO DAILY #90 tabs 05/25/22 06/26/22 Rx cetirizine 10 mg tablet 10 mg PO QAM PRN Seasonal 06/11/22 06/26/22 Rx Allergies #90 tabs glimepiride 2 mg tablet 2 mg PO QAM #90 tabs 06/11/22 06/26/22 Rx Allergies Allergy/AdvReac Type Severity Reaction Status Date / Time bee venom protein (honey bee) Allergy Severe EXTREME Verified 06/26/22 22:35 SWELLING--STUNG ON HAND, ARM SWELLED TO SHOULDER. Penicillins Allergy Intermediate HIGH Verified 06/26/22 22:35 FEVER, RASH (NOTED ALLERGIC TO "ANY-CILLIN" Past Med/Surg History Medical History Allergic rhinitis CAD, multiple vessel Cauda equina syndrome (12/2020) Chronic systolic CHF (congestive heart failure) Constipation Diabetes Dyslipidemia (high LDL; low HDL) GERD (gastroesophageal reflux disease) Gout History of pulmonary embolism (01/23/21) Hx of testicular cancer Hypertension Hypothyroidism Ischemic cardiomyopathy Lumbar disc herniation with radiculopathy Neurogenic bladder Neurogenic bowel Spinal stenosis, lumbar region with neurogenic claudication Urinary retention Surgical History Hx of total hip arthroplasty S/P coronary artery stent placement S/P orchiopexy 1976 Status post lumbar surgery (01/18/21) lumbar decompression bilateral medial facetectomies and foraminotomies at L3- L4, L4-L5, spinal fusion L4-L5, posterior instrumentation L4-L5, Family History Father Lung cancer Cancer brain Mother Diabetes Uncle Prostate cancer Grandmother (Paternal) Stroke Family/Other Colorectal cancer Breast cancer Myocardial infarction Grandfather (Maternal) Rheumatoid arthritis Denies family history of Ovarian cancer Social History Smoking Status: Former smoker Tobacco Type: Cigarettes Age Quit Using Tobacco: 65; packs per day: 0.5; Years Smoked: 24; Cigarettes Per Day: just a few per week; Second Hand Exposure: Yes; Hx Alcohol Use: No Hx Substance Use: No Preferred Language: Kinyarwanda Communication Ability: Effective Visual Impairment: No Limitations Hearing Ability: Normal Construction Specialist Required: No Beliefs That Will Affect Care: None marital status: Current Living Situation: Spouse current occupational status: retired How many Children do You have: 2 How many Children do You have Comment: live local, children and able to help with care as needed. Feels Safe at Home: Yes Childhood Exposure to Second-Hand Smoke: No Diet Comment: eats what he wants to , has tried to start eating "healthier" caffeine: Yes during the past year weight has: increased > 10 lbs Dental Care, Regularly: No Physical Activity Frequency: Other Physical Activity Frequency Comment: house chores Seatbelt Use: never Sunscreen Use: No Assistive Devices: Walker and Wheelchair Review of Systems A total of 10 systems reviewed and were otherwise negative Physical Exam Vital Signs Vital Signs - 24 hr 06/26/22 19:00 06/26/22 21:28 06/26/22 21:30 Temperature 37.9 C H Temperature Source Oral Pulse Rate 106 H Pulse Rate [Apical] 81 Respiratory Rate 18 25 H 26 H Blood Pressure 110/63 83/53 L Blood Pressure [Right Arm] 94/50 L Blood Pressure Mean 78 63 Blood Pressure Mean [Right Arm] 64 Pulse Oximetry 92 92 92 Oxygen Delivery Method Room Air Room Air Room Air Sepsis Recent Fever Within 48 Hours Yes Sepsis New/Unexplained Change in Mental Status No Sepsis Action Taken by Nursing No Action Required 06/26/22 22:00 06/26/22 22:30 06/26/22 23:00 Temperature Temperature Source Pulse Rate 83 90 89 Pulse Rate [Apical] Respiratory Rate 24 28 H 24 Blood Pressure 95/55 L 116/63 128/72 Blood Pressure [Right Arm] Blood Pressure Mean 68 80 90 Blood Pressure Mean [Right Arm] Pulse Oximetry 94 95 95 Oxygen Delivery Method Room Air Room Air Room Air Sepsis Recent Fever Within 48 Hours Sepsis New/Unexplained Change in Mental Status Sepsis Action Taken by Nursing 06/26/22 23:30 Temperature Temperature Source Pulse Rate 89 Pulse Rate [Apical] Respiratory Rate 23 Blood Pressure 126/74 Blood Pressure [Right Arm] Blood Pressure Mean 91 Blood Pressure Mean [Right Arm] Pulse Oximetry 96 Oxygen Delivery Method Room Air Sepsis Recent Fever Within 48 Hours Sepsis New/Unexplained Change in Mental Status Sepsis Action Taken by Nursing CONSTITUTIONAL/VITAL SIGNS: Reviewed / noted above. GENERAL: Non-toxic in appearance. INTEGUMENTARY: Warm, dry, and [place]. HEAD: Normocephalic. EYES: without scleral icterus or trauma. ENT/OROPHARYNX: clear and moist. LYMPHADENOPATHY/NECK: Is supple without lymphadenopathy or meningismus. RESPIRATORY: Clear to auscultation bilaterally. No increased work of breathing. CARDIOVASCULAR: Regular rate and rhythm. GI/ABDOMEN: Soft and nontender. No organomegaly or pulsatile mass. EXTREMITIES: Warm and well perfused. BACK: No CVA tenderness. NEUROLOGICAL: Intact without focal deficits. PSYCHIATRIC: normal affect. MUSCULOSKELETAL: Normally developed with good muscle tone. TRIAGE NURSING DOCUMENTATION REVIEWED. Course Administered Medications Discontinued Medications Cefepime HCl (Maxipime) 2,000 mg in 20 mls @ 5 mls/min IV NOW STA; Protocol Stop: 06/26/22 22:13 Last Admin: 06/26/22 22:27 Dose: 5 mls/min Documented By: BEREKET Sodium Chloride (Nss 1000ml) 1,000 mls @ 999 mls/hr IV .Q1H1M ONE Stop: 06/26/22 23:12 Last Infusion: 06/26/22 23:28 Dose: 0 mls/hr Documented By: Admin: 06/26/22 22:27 Dose: 999 mls/hr Documented By: BEREKET Medical Decision Making Differential Diagnosis Differential includes viral illness, influenza, streptococcal pharyngitis, meningitis, pneumonia, sinusitis, UTI, pyelonephritis, otitis media. Medical Records Attestation: I reviewed the patient's medical records. Home Medications Current Medication List: was personally reviewed by me Laboratory Data Attestation: I reviewed the patient's lab results. Result diagrams: 06/26/22 19:07 06/26/22 19:07 Lab Results 06/26/22 06/26/22 06/26/22 Range/Units 19:07 19:07 19:07 WBC 12.46 H (4.8-10.8) K/ul RBC 4.00 L (4.63-6.08) M/uL Hgb 12.2 L (14.0-18.0) g/dl Hct 36.2 L (40.1-51.0) % MCV 90.5 (80.0-100.0) fL MCH 30.5 (25.0-34.0) pg MCHC 33.7 (32.0-36.0) g/dL RDW Std Deviation 45.3 (36.4-46.3) fL RDW Coeff of Radha 13.7 (11.5-14.5) % Plt Count 247 (130-400) K/uL MPV 10.8 (9.4-12.4) fL Immature Gran % (Auto) 0.4 % Neut % (Auto) 79.2 % Lymph % (Auto) 8.3 % [place] % (Auto) 10.8 % Eos % (Auto) 0.7 % Baso % (Auto) 0.6 % Neut # (Auto) 9.88 H (1.4-6.5) K/uL Lymph # (Auto) 1.03 L (1.2-3.4) K/uL [place] # (Auto) 1.34 H (0.24-0.82) K/uL Eos # (Auto) 0.09 (0-0.50) K/uL Baso # (Auto) 0.07 (0-0.2) K/uL Immature Gran # (Auto) 0.05 H (0.00-0.02) K/uL PT 11.4 (9.0-12.0) Seconds INR 1.1 (0.9-1.1) APTT 26.6 (21.0-31.0) Seconds PTT Ratio 1.0 Sodium 138 (136-145) mmol/L Potassium 4.2 (3.5-5.1) mmol/L Chloride 100 (98-107) mmol/L Carbon Dioxide 27 (21-32) mmol/L Anion Gap 11 (3-11) BUN 20 (6-23) mg/dl Creatinine 1.47 H (0.6-1.4) mg/dl Est Cr Clr Drug Dosing Not Reportable Est GFR ( Amer) 55.2 ml/min Est GFR (Non-Af Amer) 47.7 ml/min BUN/Creatinine Ratio 13.6 (10-20) Glucose 145 H (70-99(Fasting)) mg/dl Lactate (0.4-2.0) mmol/L Calcium 9.1 (8.5-10.1) mg/dl Total Bilirubin 0.9 (0.2-1.0) mg/dl AST 9 L (13-39) U/L ALT 10 (7-52) U/L Alkaline Phosphatase 73 (34-104) U/L Troponin I High Sens 11.7 D (0-20) pg/ml Total Protein 6.9 (6.0-8.3) gm/dl Albumin 4.1 (3.4-5.0) gm/dl Globulin 2.8 (2.5-4.0) gm/dl Albumin/Globulin Ratio 1.5 (0.9-2) Procalcitonin (0-0.5) ng/ml Urine Color Urine Appearance (Clear) Urine pH (4.5-7.5) Ur Specific [place] (1.000-1.030) Urine Protein (Negative) Urine Glucose (UA) (Negative) Urine Ketones (Negative) Urine Blood (Negative) Urine Nitrite (Negative) Urine Bilirubin (Negative) Urine Urobilinogen (Negative) Ur Leukocyte Esterase (Negative) Urine WBC (Auto) (0-5) /hpf Urine RBC (Auto) (0-4) /hpf U Hyaline Cast (Auto) (0-5) /lpf U Epithel Cells (Auto) (0-5) /lpf Urine Bacteria (Auto) (Negative) Urine Yeast SARS-CoV-2 (PCR) (Negative) Influenza Type A (PCR) (Neg) Influenza Type B (PCR) (Neg) RSV (RT-PCR) (Neg) 06/26/22 06/26/22 06/26/22 Range/Units 19:07 19:07 22:22 WBC (4.8-10.8) K/ul RBC (4.63-6.08) M/uL Hgb (14.0-18.0) g/dl Hct (40.1-51.0) % MCV (80.0-100.0) fL MCH (25.0-34.0) pg MCHC (32.0-36.0) g/dL RDW Std Deviation (36.4-46.3) fL RDW Coeff of Radha (11.5-14.5) % Plt Count (130-400) K/uL MPV (9.4-12.4) fL Immature Gran % (Auto) % Neut % (Auto) % Lymph % (Auto) % [place] % (Auto) % Eos % (Auto) % Baso % (Auto) % Neut # (Auto) (1.4-6.5) K/uL Lymph # (Auto) (1.2-3.4) K/uL [place] # (Auto) (0.24-0.82) K/uL Eos # (Auto) (0-0.50) K/uL Baso # (Auto) (0-0.2) K/uL Immature Gran # (Auto) (0.00-0.02) K/uL PT (9.0-12.0) Seconds INR (0.9-1.1) APTT (21.0-31.0) Seconds PTT Ratio Sodium (136-145) mmol/L Potassium (3.5-5.1) mmol/L Chloride (98-107) mmol/L Carbon Dioxide (21-32) mmol/L Anion Gap (3-11) BUN (6-23) mg/dl Creatinine (0.6-1.4) mg/dl Est Cr Clr Drug Dosing Est GFR ( Amer) ml/min Est GFR (Non-Af Amer) ml/min BUN/Creatinine Ratio (10-20) Glucose (70-99(Fasting)) mg/dl Lactate (0.4-2.0) mmol/L Calcium (8.5-10.1) mg/dl Total Bilirubin (0.2-1.0) mg/dl AST (13-39) U/L ALT (7-52) U/L Alkaline Phosphatase (34-104) U/L Troponin I High Sens (0-20) pg/ml Total Protein (6.0-8.3) gm/dl Albumin (3.4-5.0) gm/dl Globulin (2.5-4.0) gm/dl Albumin/Globulin Ratio (0.9-2) Procalcitonin 1.50 H (0-0.5) ng/ml Urine Color Yellow Urine Appearance Turbid A (Clear) Urine pH 6.0 (4.5-7.5) Ur Specific [place] 1.012 (1.000-1.030) Urine Protein 3+ H (Negative) Urine Glucose (UA) Negative (Negative) Urine Ketones Negative (Negative) Urine Blood 2+ H (Negative) Urine Nitrite Negative (Negative) Urine Bilirubin Negative (Negative) Urine Urobilinogen Negative (Negative) Ur Leukocyte Esterase 3+ H (Negative) Urine WBC (Auto) >30 H (0-5) /hpf Urine RBC (Auto) 0-4 (0-4) /hpf U Hyaline Cast (Auto) 0 (0-5) /lpf U Epithel Cells (Auto) >30 H (0-5) /lpf Urine Bacteria (Auto) Negative (Negative) Urine Yeast Not Reportable SARS-CoV-2 (PCR) NEGATIVE (Negative) Influenza Type A (PCR) Negative (Neg) Influenza Type B (PCR) Negative (Neg) RSV (RT-PCR) Negative (Neg) 06/26/22 Range/Units 22:24 WBC (4.8-10.8) K/ul RBC (4.63-6.08) M/uL Hgb (14.0-18.0) g/dl Hct (40.1-51.0) % MCV (80.0-100.0) fL MCH (25.0-34.0) pg MCHC (32.0-36.0) g/dL RDW Std Deviation (36.4-46.3) fL RDW Coeff of Radha (11.5-14.5) % Plt Count (130-400) K/uL MPV (9.4-12.4) fL Immature Gran % (Auto) % Neut % (Auto) % Lymph % (Auto) % [place] % (Auto) % Eos % (Auto) % Baso % (Auto) % Neut # (Auto) (1.4-6.5) K/uL Lymph # (Auto) (1.2-3.4) K/uL [place] # (Auto) (0.24-0.82) K/uL Eos # (Auto) (0-0.50) K/uL Baso # (Auto) (0-0.2) K/uL Immature Gran # (Auto) (0.00-0.02) K/uL PT (9.0-12.0) Seconds INR (0.9-1.1) APTT (21.0-31.0) Seconds PTT Ratio Sodium (136-145) mmol/L Potassium (3.5-5.1) mmol/L Chloride (98-107) mmol/L Carbon Dioxide (21-32) mmol/L Anion Gap (3-11) BUN (6-23) mg/dl Creatinine (0.6-1.4) mg/dl Est Cr Clr Drug Dosing Est GFR ( Amer) ml/min Est GFR (Non-Af Amer) ml/min BUN/Creatinine Ratio (10-20) Glucose (70-99(Fasting)) mg/dl Lactate 1.7 (0.4-2.0) mmol/L Calcium (8.5-10.1) mg/dl Total Bilirubin (0.2-1.0) mg/dl AST (13-39) U/L ALT (7-52) U/L Alkaline Phosphatase (34-104) U/L Troponin I High Sens (0-20) pg/ml Total Protein (6.0-8.3) gm/dl Albumin (3.4-5.0) gm/dl Globulin (2.5-4.0) gm/dl Albumin/Globulin Ratio (0.9-2) Procalcitonin (0-0.5) ng/ml Urine Color Urine Appearance (Clear) Urine pH (4.5-7.5) Ur Specific [place] (1.000-1.030) Urine Protein (Negative) Urine Glucose (UA) (Negative) Urine Ketones (Negative) Urine Blood (Negative) Urine Nitrite (Negative) Urine Bilirubin (Negative) Urine Urobilinogen (Negative) Ur Leukocyte Esterase (Negative) Urine WBC (Auto) (0-5) /hpf Urine RBC (Auto) (0-4) /hpf U Hyaline Cast (Auto) (0-5) /lpf U Epithel Cells (Auto) (0-5) /lpf Urine Bacteria (Auto) (Negative) Urine Yeast SARS-CoV-2 (PCR) (Negative) Influenza Type A (PCR) (Neg) Influenza Type B (PCR) (Neg) RSV (RT-PCR) (Neg) Imaging Data My Impression: Chest x-ray: Per my interpretation there is no acute disease. No pneumothorax or pneumonia. ECG Data Attestation: I personally reviewed and interpreted this ECG as follows: Additional Comments: Twelve-lead EKG: Per my interpretation shows a sinus tach at a rate of 104. No ST elevation. No PVCs. Normal QTC. MDM Narrative 71-year-old male presents to the ED with a chief complaint of a fever and some additional symptoms as noted above. His urinalysis is consistent with inf ection. Chest x-ray was clear. White blood cell count was mildly elevated 12.46. Lactic acid was negative. Chemistry panel was unremarkable. Procalcitonin was elevated at 1.5. The patient was treated with IV fluids and IV cefepime. He was given 1 L fluid. His blood pressure improved with this. He was not given any additional fluid as he appears to be stable and he does have a history of congestive heart failure. The patient was also given IV cefepime. Previous urine infection cultures have been sensitive to this. The patient will be seen by the hospitalist. Impression & Plan Recurrent UTI, Sepsis Discharge Plan Visit Data Chief Complaint: Chest Pain Stated Complaint: FEVER, ABDOMINAL PAIN, CHEST PAIN ED Provider: Jason Best Discharge Problem: Recurrent UTI, Sepsis Patient Disposition: Being Evaluated by Hospitalist Forms Stand Alone Forms: [facility] Prescriptions Prescriptions: No Action (DME) Mattress (Air or other) Misc See Rx Instructions .Route Qty: 1 0RF Rx Instructions: alternating pressure mattress metoprolol succinate 50 mg tablet extended release 24 hr 50 mg PO DAILY Qty: 90 3RF gabapentin 300 mg capsule 300 mg PO TID Qty: 180 1RF atorvastatin 80 mg tablet 80 mg PO QAM Qty: 90 1RF metformin 1,000 mg tablet 1,000 mg PO BID Qty: 180 1RF allopurinol 300 mg tablet 300 mg PO QAM Qty: 90 1RF omeprazole 20 mg capsule,delayed release(DR/EC) 20 mg PO QAM Qty: 90 1RF lisinopril 5 mg tablet 5 mg PO DAILY Qty: 90 3RF famotidine 40 mg tablet 40 mg PO HS Qty: 90 1RF levothyroxine 137 mcg tablet 137 mcg PO DAILY Qty: 90 1RF tamsulosin 0.4 mg capsule 0.4 mg PO HS Qty: 90 1RF clopidogrel 75 mg tablet 75 mg PO DAILY Qty: 90 1RF glimepiride 2 mg tablet 2 mg PO QAM Qty: 90 1RF cetirizine 10 mg tablet 10 mg PO QAM PRN (Reason: Seasonal Allergies) Qty: 90 1RF (DME) diaper,brief,adult,disposable Misc See Rx Instructions .ROUTE .MEDSUPPLY Qty: 126 3RF Rx Instructions: As directed senna 8.6 mg capsule 8.6 mg PO DAILY nitroglycerin 0.4 mg tablet, sublingual 0.4 mg sublingual DIRECTED PRN (Reason: Chest Pain) Qty: 30 2RF Rx Instructions: use as needed for chest pain; go to the ER IMMEDIATELY if need to use it once ondansetron HCl 4 mg tablet 4 mg PO Q8H PRN (Reason: Nausea And Vomiting) aspirin 81 mg tablet,delayed release (DR/EC) 81 mg PO QAM acetaminophen [Tylenol Extra Strength] 500 mg Tablet 1,000 mg PO Q6H PRN (Reason: fever/Pain) Saccharomyces boulardii [Probiotic (S.boulardii)] 250 mg Capsule 250 mg PO BID Referrals Referrals: Liz Kirby DO [Primary Care Provider] -
[2022-06-27] MEDS ORDERED: GABAPENTIN 300 MG CAP PO STA (00:40)
--- NOTE | 2022-06-27 01:00 | History & Physical Report ---
Date of Service June 27, 2022 Assessment & Plan (1) Sepsis: Plan: 71 yo male with history of cauda equina syndrome secondary to large disc herniation s/p L4-L5 decompression and discectomy, neurogenic bladder requiring self-catheterization 4-5 times daily, recurrent UTI presenting with sepsis - (SIRS 2/4 on arrival). Low blood pressure on arrival responsive to 1L NSS. Elevated procalcitonin. Most likely urinary source. UA is suggestive of infection. Nurse reports cloudy, purulent appearing urine. Prior cultures with Klebsiella. Patient has improved following IVF and antibiotics. -Observation to medical -Follow cultures -Check renal ultrasound for possible abscess - complicated UTI, frequent instrumentation, fever of 103 reported from home -Continue Cefepime 2gm IV daily - renal dosing -Initiate Oxybutynin 5mg po BID to hopefully alleviate bladder spasms -Tylenol PRN pain or fever -Zofran PRN nausea -LR at 100mL/hr x 1 liter -Bladder scan as needed -Straight catheterization q 6 hours and PRN (2) UTI (urinary tract infection): Plan: Most likely source of sepsis -Follow culture -Continue Cefepime 2gm IV daily -Check renal US (3) Diabetes: Plan: Blood sugar presently 145. Patient is on oral agents, Glimepiride and Metformin as outpatient. Last CgqC2S=1.3 on 12/07/21 -Hold oral agents -Lantus 5u BID -ISS -Goal blood sugar 110 - 140 (4) CAD, multiple vessel: Plan: Patient with history of multivessel CAD. He had a cardiac catheterization performed on Presently with no chest discomfort -Continue ASA 81mg po daily, Plavix 75mg po daily, Atorvastatin 80mg po daily, Metoprolol 50mg po daily -Hold Lisinopril for now, repeat chemistry in AM (5) Dyslipidemia (high LDL; low HDL): Plan: Chronic. Patient on high intensity statin. Last lipid panel 12/07/21 wtih ch fu=048, LDL=75, HDL=29 -Continue Atorvastatin 80mg po daily (6) Hypertension: Plan: Patient with low blood pressure upon arrival in setting of sepsis secondary to urinary source. BP improved after 1L NSS -Continue metoprolol -Hold Lisinopril for now -Monitor BP (7) Chronic systolic CHF (congestive heart failure): Plan: Appears compensated. He does have some dependent bilateral LE edema. No cough, SOB. -Continue Metoprolol -Cautious use of fluids -Montior fluid status (8) Acid reflux: Plan: Chronic. Stable on medications -Continue Pepcid 40mg po qHS (9) Hypothyroidism: Plan: Chronic. Stable. Last TSH=3.043 on 02/15/22 -Continue Synthroid 137mcg po daily (10) Gout: Plan: Chronic. Well controlled with medication -Continue Allopurinol 300mg po daily (11) Cauda equina syndrome: Plan: History of. s/p decompression. Patient with persistent symptoms, neurogenic bladder. He is able to ambulate with a walker. Performs self catheterization and takes stool softeners for regular BMs. -Continue Gabapentin 300mg po TID -Bladder ultrasound as needed -Straight catheterization q 6 hours and PRN -Fall precautions F/E/N - LR at 100mL/hr x 1 liter, monitor electrolytes, AHA/CC diet as toleated Ppx - Low risk for DVT Code - Full Dispo - Obs to medical History of Present Illness Chief Complaint: fever, urinary symptoms Primary Care Provider: DO Frederic Heaton Bashir is a pleasant 71yo male with history of cauda equina syndrome secondary to large disc herniation s/p L4-L5 decompression in December 2020. Patient with persistent neurogenic bladder requiring self-catheterization 4-5 times daily, also experiences occasional shock-like pain from his groin to his feet as well as persistent saddle anesthesia, constipation and incontinence. He [place] with Neurology [place] [facility] [place] with history of frequent UTIs - prior urine cultures positive for fairly sensitive strain of Klebsiella. He has seen Urology in the past. Patient presents with one week of cloudy/purulent urine as well as bladder spasms, lower abdominal discomfort and shock-like pain from lower abdomen to feet. This AM he had headache, dizziness and fever to 103 which prompted him to come to the ER. Also with complaints of nausea, abdominal discomfort, constipation. Symptoms are similar to prior UTIs. Upon arrival to the ER patient with elevated temperature of 37.9, AE=228, blood pressure 83/53. ER Course: NSS x 1L, Cefepime 2gm Allergies Allergy/AdvReac Type Severity Reaction Status Date / Time bee venom protein (honey bee) Allergy Severe EXTREME Verified 06/26/22 22:35 SWELLING--STUNG ON HAND, ARM SWELLED TO SHOULDER. Penicillins Allergy Intermediate HIGH Verified 06/26/22 22:35 FEVER, RASH (NOTED ALLERGIC TO "ANY-CILLIN" Home Medications Medication Instructions Recorded Confirmed Type diaper,brief,adult,disposable #126 ea 03/07/21 04/20/22 Rx aspirin 81 mg tablet,delayed 81 mg PO QAM 05/02/21 06/26/22 History release Mattress (Air or other) #1 ea 05/03/21 04/20/22 Rx acetaminophen 500 mg tablet 1,000 mg PO Q6H PRN fever/Pain 05/17/21 06/26/22 History (Tylenol Extra Strength) sennosides 8.6 mg capsule (senna) 8.6 mg PO DAILY 07/26/21 06/26/22 History nitroglycerin 0.4 mg sublingual 0.4 mg sublingual DIRECTED PRN 09/04/21 06/26/22 Rx tablet Chest Pain #30 tabs Saccharomyces boulardii 250 mg 250 mg PO BID 10/24/21 06/26/22 History capsule (Probiotic (S.boulardii)) metoprolol succinate 50 mg 50 mg PO DAILY #90 tabs 10/24/21 06/26/22 Rx tablet,extended release 24 hr gabapentin 300 mg capsule 300 mg PO TID #180 caps 12/05/21 06/26/22 Rx ondansetron HCl 4 mg tablet 4 mg PO Q8H PRN Nausea And Vomiting 01/02/22 06/26/22 History atorvastatin 80 mg tablet 80 mg PO QAM #90 tabs 01/12/22 06/26/22 Rx metformin 1,000 mg tablet 1,000 mg PO BID #180 tabs 01/17/22 06/26/22 Rx allopurinol 300 mg tablet 300 mg PO QAM #90 tabs 02/23/22 06/26/22 Rx omeprazole 20 mg capsule,delayed 20 mg PO QAM #90 caps 02/23/22 06/26/22 Rx release lisinopril 5 mg tablet 5 mg PO DAILY #90 tabs 04/10/22 06/26/22 Rx famotidine 40 mg tablet 40 mg PO HS #90 tabs 04/18/22 06/26/22 Rx levothyroxine 137 mcg tablet 137 mcg PO DAILY #90 tabs 05/07/22 06/26/22 Rx tamsulosin 0.4 mg capsule 0.4 mg PO HS #90 caps 05/14/22 06/26/22 Rx clopidogrel 75 mg tablet 75 mg PO DAILY #90 tabs 05/25/22 06/26/22 Rx cetirizine 10 mg tablet 10 mg PO QAM PRN Seasonal 06/11/22 06/26/22 Rx Allergies #90 tabs glimepiride 2 mg tablet 2 mg PO QAM #90 tabs 06/11/22 06/26/22 Rx Past Med/Surg History Medical History Allergic rhinitis CAD, multiple vessel Cauda equina syndrome (12/2020) Chronic systolic CHF (congestive heart failure) Constipation Diabetes Dyslipidemia (high LDL; low HDL) GERD (gastroesophageal reflux disease) Gout History of pulmonary embolism (01/23/21) Hx of testicular cancer Hypertension Hypothyroidism Ischemic cardiomyopathy Lumbar disc herniation with radiculopathy Neurogenic bladder Neurogenic bowel Spinal stenosis, lumbar region with neurogenic claudication Urinary retention Surgical History Hx of total hip arthroplasty S/P coronary artery stent placement S/P orchiopexy 1976 Status post lumbar surgery (01/18/21) lumbar decompression bilateral medial facetectomies and foraminotomies at L3- L4, L4-L5, spinal fusion L4-L5, posterior instrumentation L4-L5, Family History Father Lung cancer Cancer brain Mother Diabetes Uncle Prostate cancer Grandmother (Paternal) Stroke Family/Other Colorectal cancer Breast cancer Myocardial infarction Grandfather (Maternal) Rheumatoid arthritis Denies family history of Ovarian cancer Social History Smoking Status: Former smoker Tobacco Type: Cigarettes Age Quit Using Tobacco: 65; packs per day: 0.5; Years Smoked: 24; Cigarettes Per Day: just a few per week; Second Hand Exposure: Yes; Hx Alcohol Use: No Hx Substance Use: No Preferred Language: [place] Communication Ability: Effective Visual Impairment: No Limitations Hearing Ability: Normal Milk Pickup Driver Required: No Beliefs That Will Affect Care: None marital status: Current Living Situation: Spouse current occupational status: retired How many Children do You have: 2 How many Children do You have Comment: live local, children and able to help with care as needed. Feels Safe at Home: Yes Childhood Exposure to Second-Hand Smoke: No Diet Comment: eats what he wants to , has tried to start eating "healthier" caffeine: Yes during the past year weight has: increased > 10 lbs Dental Care, Regularly: No Physical Activity Frequency: Other Physical Activity Frequency Comment: house chores Seatbelt Use: never Sunscreen Use: No Assistive Devices: Walker and Wheelchair Review of Systems Review of Systems: All systems reviewed & are unremarkable except as noted in HPI & below Physical Exam Physical Exam: General: patient resting comfortably, NAD, non-toxic in appearance, AA&O x 4 Skin: warm, dry, intact, no rashes or lesions HEENT: NC/AT, PERRL, EOMI, anicteric sclera, conjunctiva without injection, external ear normal to inspection and nontender, nares patent, moist mucus membranes, dentition intact, no oropharyngeal lesions, neck supple, trachea midline, no LAD, no thyromegaly, no JVD Heart: +S1/S2, regular, no m/r/g Lungs: equal air entry bilaterally, no rales/rhonchi/wheezes Abd: +BS, soft, diffusely tender without rebound/guarding, mildly distended, no masses/organomegaly/ascites Ext: warm, 2+ pulses in UE/LE bilaterally, no clubbing/cyanosis, 2+ edema of bilateral LE Neuro: nonfocal, patient AA&O x 4, speech intact, no facial droop, moving all extremities on command with equal strength 5/5 Results & Data Results & Data ([facility]) Vital Signs (Past 12 Hours) Vital Signs Temp Pulse Pulse Resp BP BP Pulse Ox 06/26/22 23:30 89 23 126/74 96 06/26/22 23:00 89 24 128/72 95 06/26/22 22:30 90 28 H 116/63 95 06/26/22 22:00 83 24 95/55 L 94 06/26/22 21:30 26 H 83/53 L 92 06/26/22 21:28 81 25 H 94/50 L 92 06/26/22 19:00 37.9 C H 106 H 18 110/63 92 O2 Del Method 06/26/22 23:30 Room Air 06/26/22 23:00 Room Air 06/26/22 22:30 Room Air 06/26/22 22:00 Room Air 06/26/22 21:30 Room Air 06/26/22 21:28 Room Air 06/26/22 19:00 Room Air Laboratory Results Laboratory Results WBC 12.46 K/ul (4.8-10.8) H 06/26/22 19:07 RBC 4.00 M/uL (4.63-6.08) L 06/26/22 19:07 Hgb 12.2 g/dl (14.0-18.0) L 06/26/22 19:07 Hct 36.2 % (40.1-51.0) L 06/26/22 19:07 MCV 90.5 fL (80.0-100.0) 06/26/22 19:07 MCH 30.5 pg (25.0-34.0) 06/26/22 19:07 MCHC 33.7 g/dL (32.0-36.0) 06/26/22 19:07 RDW Std Deviation 45.3 fL (36.4-46.3) 06/26/22 19:07 RDW Coeff of Radha 13.7 % (11.5-14.5) 06/26/22 19:07 Plt Count 247 K/uL (130-400) 06/26/22 19:07 MPV 10.8 fL (9.4-12.4) 06/26/22 19:07 Immature Gran % (Auto) 0.4 % 06/26/22 19:07 Neut % (Auto) 79.2 % 06/26/22 19:07 Lymph % (Auto) 8.3 % 06/26/22 19:07 [place] % (Auto) 10.8 % 06/26/22 19:07 Eos % (Auto) 0.7 % 06/26/22 19:07 Baso % (Auto) 0.6 % 06/26/22 19:07 Neut # (Auto) 9.88 K/uL (1.4-6.5) H 06/26/22 19:07 Lymph # (Auto) 1.03 K/uL (1.2-3.4) L 06/26/22 19:07 [place]ink[place] # (Auto) 1.34 K/uL (0.24-0.82) H 06/26/22 19:07 Eos # (Auto) 0.09 K/uL (0-0.50) 06/26/22 19:07 Baso # (Auto) 0.07 K/uL (0-0.2) 06/26/22 19:07 Immature Gran # (Auto) 0.05 K/uL (0.00-0.02) H 06/26/22 19:07 PT 11.4 Seconds (9.0-12.0) 06/26/22 19:07 INR 1.1 (0.9-1.1) 06/26/22 19:07 APTT 26.6 Seconds (21.0-31.0) 06/26/22 19:07 PTT Ratio 1.0 06/26/22 19:07 Sodium 138 mmol/L (136-145) 06/26/22 19:07 Potassium 4.2 mmol/L (3.5-5.1) 06/26/22 19:07 Chloride 100 mmol/L (98-107) 06/26/22 19:07 Carbon Dioxide 27 mmol/L (21-32) 06/26/22 19:07 Anion Gap 11 (3-11) 06/26/22 19:07 BUN 20 mg/dl (6-23) 06/26/22 19:07 Creatinine 1.47 mg/dl (0.6-1.4) H 06/26/22 19:07 Est Cr Clr Drug Dosing Not Reportable 06/26/22 19:07 Est GFR ( Amer) 55.2 ml/min 06/26/22 19:07 Est GFR (Non-Af Amer) 47.7 ml/min 06/26/22 19:07 BUN/Creatinine Ratio 13.6 (10-20) 06/26/22 19:07 Glucose 145 mg/dl (70-99(Fasting)) H 06/26/22 19:07 Lactate 1.7 mmol/L (0.4-2.0) 06/26/22 22:24 Calcium 9.1 mg/dl (8.5-10.1) 06/26/22 19:07 Total Bilirubin 0.9 mg/dl (0.2-1.0) 06/26/22 19:07 AST 9 U/L (13-39) L 06/26/22 19:07 ALT 10 U/L (7-52) 06/26/22 19:07 Alkaline Phosphatase 73 U/L (34-104) 06/26/22 19:07 Troponin I High Sens 11.7 pg/ml (0-20) D 06/26/22 19:07 Total Protein 6.9 gm/dl (6.0-8.3) 06/26/22 19:07 Albumin 4.1 gm/dl (3.4-5.0) 06/26/22 19:07 Globulin 2.8 gm/dl (2.5-4.0) 06/26/22 19:07 Albumin/Globulin Ratio 1.5 (0.9-2) 06/26/22 19:07 Procalcitonin 1.50 ng/ml (0-0.5) H 06/26/22 19:07 Urine Color Yellow 06/26/22 22:22 Urine Appearance Turbid (Clear) A 06/26/22: Urine pH 6.0 (4.5-7.5) 06/26/22 22:22 Ur Specific [place] 1.012 (1.000-1.030) 06/26/22 22:22 Urine Protein 3+ (Negative) H 06/26/22 22:22 Urine Glucose (UA) Negative (Negative) 06/26/22 22:22 Urine Ketones Negative (Negative) 06/26/22 22:22 Urine Blood 2+ (Negative) H 06/26/22 22:22 Urine Nitrite Negative (Negative) 06/26/22 22:22 Urine Bilirubin Negative (Negative) 06/26/22 22:22 Urine Urobilinogen Negative (Negative) 06/26/22 22:22 Ur Leukocyte Esterase 3+ (Negative) H 06/26/22 22:22 Urine WBC (Auto) >30 /hpf (0-5) H 06/26/22 22:22 Urine RBC (Auto) 0-4 /hpf (0-4) 06/26/22 22:22 U Hyaline Cast (Auto) 0 /lpf (0-5) 06/26/22 22:22 U Epithel Cells (Auto) >30 /lpf (0-5) H 06/26/22 22:22 Urine Bacteria (Auto) Negative (Negative) 06/26/22 22:22 Urine Yeast Not Reportable 06/26/22 22:22 SARS-CoV-2 (PCR) NEGATIVE (Negative) 06/26/22 19:07 Influenza Type A (PCR) Negative (Neg) 06/26/22 19:07 Influenza Type B (PCR) Negative (Neg) 06/26/22 19:07 RSV (RT-PCR) Negative (Neg) 06/26/22 19:07 PG Care Time/CCT Total # of Minutes Spent Total Time Spent with Patient: Total time spent is greater than 50% in coordination of care (as documented) at patient's floor/unit and/or counseling patient: Coding Level of Care Code INT OBSERVATION CARE 71M LVL 3 Diagnoses Sepsis A41.9 UTI (urinary tract infection) N39.0 Diabetes E11.9 CAD, multiple vessel I25.10 Dyslipidemia (high LDL; low HDL) E78.5 Hypertension I10 Chronic systolic CHF (congestive heart failure) I50.22 Acid reflux K21.9 Hypothyroidism E03.9 Hypothyroidism type: unspecified Gout M10.9 Gout site: unspecified site Gout etiology: unspecified cause Chronicity: chronic Cauda equina syndrome G83.4 (1) Hypothyroidism Hypothyroidism type: unspecified Qualified Code(s): E03.9 - Hypothyroidism, unspecified (2) Gout Gout site: unspecified site Gout etiology: unspecified cause Chronicity: chronic
[2022-06-27] MEDS ORDERED: CARBOHYDRATES FOR HYPOGLYCEMIA PO PRN (02:20)
[2022-06-27] MEDS ORDERED: GLUCAGON FOR INJ 1 MG VIAL SQ PRN (02:20)
[2022-06-27] MEDS ORDERED: LACTATED RINGER'S 1,000 ML IV SCH (02:20)
[2022-06-27] MEDS ORDERED: GLUCOSE 40% GEL 15 GM TUBE PO PRN (02:20)
[2022-06-27] MEDS ORDERED: GLUCOSE 10 TAB/TUBE PO PRN (02:20)
[2022-06-27] MEDS ORDERED: DEXTROSE 50% 50 ML SYRINGE IV PRN (02:20)
[2022-06-27] MEDS: Patient's HEIGHT &/or WEIGHT Needed SCH (03:08)
[2022-06-27] MEDS: LEVOTHYROXINE SODIUM 137 MCG TABLET PO SCH (06:27)
--- NOTE | 2022-06-27 06:34 | XRay Report ---
XR chest 1V portable HISTORY: 71 years-old Male cp acute chest pain COMPARISON: Chest radiograph 02/15/2022 TECHNIQUE: Portable AP view of the chest FINDINGS: Cardiomediastinal and hilar silhouettes are within normal limits. Eventration of the right hemidiaphr agm. Mild subsegmental left basilar atelectasis. No pneumothorax, pleural effusion, or overt pulmonar y edema. Degenerative changes of the shoulders and spine. IMPRESSION: No acute process. ACT 112: Negative or not required by law. The above report was generated using voice recognition software. It may contain grammatical, syntax o r spelling errors. Electronically signed by: Amador Sullivan M.D. 06/27/2022 6:33 AM
--- NOTE | 2022-06-27 08:41 | Electrocardiogram Report ---
Test Reason : Blood Pressure : / mmHG Vent. Rate : 104 BPM Atrial Rate : 104 BPM P-R Int : 146 ms QRS Dur : 088 ms QT Int : 330 ms P-R-T Axes : 058 -06 002 degrees QTc Int : 433 ms Sinus tachycardia Nonspecific T wave abnormality Abnormal ECG When compared with ECG of 15-FEB-2022 19:26, No significant change was found Confirmed by Castillo Winston ([id number]) on 06/27/2022 8:41:16 AM Referred By: REFERRED SELF Confirmed By:Cornelius Winston
[2022-06-27] MEDS ORDERED: CEFEPIME 2,000 MG in SYRINGE 0 ML IV SCH (09:00)
[2022-06-27] MEDS: ACETAMINOPHEN 500 MG TAB PO PRN ×3 (09:28→21:46)
[2022-06-27] MEDS: INSULIN ASPART PER UNIT SC SCH ×4 (09:30→20:11)
[2022-06-27] MEDS: LANTUS PER UNIT CHARGE SQ SCH ×2 (09:30→20:11)
[2022-06-27] MEDS: ONDANSETRON INJ 2 MG/ML 2 ML VIAL IV PRN (09:30)
[2022-06-27] MEDS: allopurinoL 300 MG TAB PO SCH (09:37)
[2022-06-27] MEDS: GABAPENTIN 300 MG CAP PO SCH ×3 (09:38→20:09)
[2022-06-27] MEDS: ATORVASTATIN 40 MG TAB PO SCH (09:38)
[2022-06-27] MEDS: CLOPIDOGREL BISULFATE 75 MG TAB PO SCH (09:38)
[2022-06-27] MEDS: OXYBUTYNIN CHLORIDE 5 MG TAB PO SCH ×2 (09:39→20:07)
[2022-06-27] MEDS: SENNA 8.6 MG TAB PO SCH (09:39)
[2022-06-27] MEDS: METOPROLOL SUCC 50MG EXT REL TAB PO SCH (09:39)
[2022-06-27] MEDS: ASPIRIN 81 MG ECTAB PO SCH (09:40)
[2022-06-27] MEDS: CEFEPIME 1,000 MG in SYRINGE 0 ML IV SCH ×2 (09:45→20:16)
--- NOTE | 2022-06-27 10:00 | Ultrasound Report ---
ULTRASOUND KIDNEYS AND BLADDER CLINICAL HISTORY: Fever. Urinary tract infection. COMPARISON STUDY: Abdominal CT dated 02/15/2022. TECHNIQUE: Real-time, grayscale, and color flow sonography of the kidneys and bladder is performed. I mages are reviewed in the transverse and longitudinal planes. FINDINGS: Kidneys: The kidneys are normal in size and echotexture. The right kidney measures 12.7 x 6.0 x 6.7 c m and the left kidney measures 12.2 x 7.3 x 7.5 cm. There is mild to moderate bilateral hydroureteron ephrosis. No shadowing renal calculi are identified. There is no sonographic evidence of contour defo rming renal mass lesion. No perinephric fluid is identified. Bladder: The bladder is significant distended. The wall appears thickened/trabeculated indicating a c hronic outlet obstruction.. Bilateral ureteral jets were seen. IMPRESSION: 1. The bladder is significantly distended with evidence of chronic outlet obstruction. 2. There is [id number] bilateral hydroureteronephrosis, likely secondary to the degree of bladd er distention. Clinical correlation will be required. ACT 112: Negative or not required by law. Electronically signed by: Morris Coburn M.D. 06/27/2022 9:59 AM
[2022-06-27] MEDS: TAMSULOSIN HCL 0.4 MG CAP PO SCH (20:08)
[2022-06-27] MEDS: FAMOTIDINE 40 MG TABLET PO SCH (20:08)
--- NOTE | 2022-06-27 21:04 | History & Physical Bridge Note ---
Date of Service June 27, 2022 History & Physical Bridge Note I have examined the patient, reviewed the History & Physical and in the interval since the performance of the History & Physical I have noted the following changes of clinical significance: Pt had a fever today and took tylenol, fever broke and he ws sweating. Otherwise has chronic peripheral edema and has been off all diuretics since [facility]E admission in /2021. Denies CP, SOB. Reports his urine was foul prior to admission, continues straight cathing here. No changes made to plan for today, seems to be improving follow cultures add HANK hose for peripheral edema which is 2+ on exam
[2022-06-28 07:18] LABS: Hemoglobin 9.9 g/dl (14.0-18.0); Mean Platelet Volume 11.8 fL (9.4-12.4); Platelet Count 183 K/uL (130-400); RDW Coefficient of Variation 13.8 % (11.5-14.5); RDW Standard Deviation 47.2 fL (36.4-46.3); Red Blood Count 3.19 M/uL (4.63-6.08); White Blood Count 11.04 K/ul (4.8-10.8)
[2022-06-28] MEDS: LEVOTHYROXINE SODIUM 137 MCG TABLET PO SCH (07:34)
[2022-06-28 07:50] LABS: Calcium 8.4 mg/dl (8.5-10.1); Creatinine Clr Calc Pharmacy 50.1 ml/min; Est GFR (African American) 44.7 ml/min; Est GFR (Non-African American) 38.6 ml/min; Potassium 4.1 mmol/L (3.5-5.1)
[2022-06-28] MEDS: ATORVASTATIN 40 MG TAB PO SCH (08:12)
[2022-06-28] MEDS: METOPROLOL SUCC 50MG EXT REL TAB PO SCH (08:12)
[2022-06-28] MEDS: CLOPIDOGREL BISULFATE 75 MG TAB PO SCH (08:12)
[2022-06-28] MEDS: OXYBUTYNIN CHLORIDE 5 MG TAB PO SCH (08:13)
[2022-06-28] MEDS: allopurinoL 300 MG TAB PO SCH (08:13)
[2022-06-28] MEDS: SENNA 8.6 MG TAB PO SCH (08:13)
[2022-06-28] MEDS: ASPIRIN 81 MG ECTAB PO SCH (08:13)
[2022-06-28] MEDS: GABAPENTIN 300 MG CAP PO SCH ×3 (08:13→21:04)
[2022-06-28] MEDS: INSULIN ASPART PER UNIT SC SCH ×4 (08:22→21:05)
[2022-06-28] MEDS: LANTUS PER UNIT CHARGE SQ SCH ×2 (08:23→21:05)
[2022-06-28] MEDS: ACETAMINOPHEN 500 MG TAB PO PRN ×2 (12:51→22:51)
[2022-06-28] MEDS: POLYETHYLENE (MIRALAX) 17 GM PACK PO PRN (12:54)
[2022-06-28] MEDS: ONDANSETRON INJ 2 MG/ML 2 ML VIAL IV PRN (12:54)
--- NOTE | 2022-06-28 17:10 | Hospitalist Progress Note ---
Date of Service June 28, 2022 Assessment & Plan (1) Sepsis: Plan: 71 yo male with history of cauda equina syndrome secondary to large disc herniation s/p L4-L5 decompression and discectomy, neurogenic bladder requiring self-catheterization 4-5 times daily, recurrent UTI presenting with sepsis - (SIRS 2/4 on arrival). Low blood pressure on arrival responsive to 1L NSS. Elevated procalcitonin. Most likely urinary source. UA is suggestive of infection. Nurse reports cloudy, purulent appearing urine. Prior cultures with Klebsiella. Patient has improved following IVF and antibiotics. Ur cx growing GNR, BCxs NGTD -dcd IVFs after initial as he tends to be volume overloaded With mild FRANCIE No further fevers now Renal US no abscess, has mod hydro bilat from neurogenic bladder and possibly enlarged prostate -Continue Cefepime- renal dosing -Initiated Oxybutynin 5mg po BID to hopefully alleviate bladder spasms but may be making speech issues worse? will stop -Tylenol PRN pain or fever -Zofran PRN nausea -Bladder scan as needed -Straight catheterization q 6 hours and PRN (2) UTI (urinary tract infection): Plan: Most likely source of sepsis -Follow culture -Continue Cefepime (3) Diabetes: Plan: Blood sugarcontrolled, Patient is on oral agents, Glimepiride and Metformin as outpatient. 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 Patient had cardiac catheterization performed on 11/01/21 at [facility] [place] which revealed multivessel disease. He had high risk PCI of LM/LAD/CX and orbital atherectomy. Patient completed Cardiac rehabilitation He remains on uninterrupted DAPT with ASA and Plavix x 12 months at least Presently with no chest discomfort -Continue ASA 81mg po daily, Plavix 75mg po daily, Atorvastatin 80mg po daily, Metoprolol 50mg po daily -Hold Lisinopril for FRANCIE (7) Dyslipidemia (high LDL; low HDL): Plan: Chronic. Patient on high intensity statin. Last lipid panel 12/07/21 wtih fvfm=612, LDL=75, HDL=29 -Continue Atorvastatin 80mg po daily (8) Hypertension: Plan: Patient with low blood pressure upon arrival in setting of sepsis secondary to urinary source. BP improved after 1L NSS -Continue metoprolol -Hold Lisinopril for now -Monitor BP (9) Chronic systolic CHF (congestive heart failure): Plan: Appears compensated. He does have some dependent bilateral LE edema. No cough, SOB. -Continue Metoprolol -Monitor fluid status -consider low dose lasix and watch renal function-was on lasix previously but held after had FRANCIE (10) Acid reflux: Plan: Chronic. Stable on medications -Continue Pepcid 40mg po qHS (11) Hypothyroidism: Plan: Chronic. Stable. Last TSH=3.043 on 02/15/22 -Continue Synthroid 137mcg po daily (12) Gout: Plan: Chronic. Well controlled with medication -Continue Allopurinol 300mg po daily (13) Cauda equina syndrome: Plan: History of. s/p decompression. Patient with persistent symptoms, neurogenic bladder. He is able to ambulate with a walker. Performs self catheterization and takes stool softeners for regular BMs. -Continue Gabapentin 300mg po TID -Bladder ultrasound as needed -Straight catheterization q 6 hours and PRN -Fall precautions Ppx - add heparin 5000 units q12h, HANK martínez Code - Full Dispo -continued stay Admission and Anticipated Discharge Date Admission Date: June 28, 2022 Subjective Only low grade temp overnight, no further fevers. No further abd pain and feels he is able to move around a little better. His at bedside is concerned about the changes in his speech. He sounds the same to me as yesterday-he has secretions in his mputh and a lisp and said that is not normal for him, however this has happened ot him in the past when he gets sick with infections. Has never had Speech therapy eval and concerned he had a stroke. Review of Systems Review of Systems: All systems reviewed & are unremarkable except as noted in HPI & below Physical Exam Constitutional: WD/WN, vitals as above Eyes: PERRL, conjunctivae normal, anicteric sclerae ENMT: external ear and nose normal, oropharynx normal Neck: trachea midline, no thyromegaly Respiratory: normal respiratory effort, lungs clear to auscultation Cardiovascular: Rate/Rhythm: regular rate and regular rhythm Heart Sounds: no murmur Extremities: + edema (1+ pitting edema legs bilat) Chest (Breasts): Chest: normal inspection of chest Gastrointestinal (Abdomen): normal bowel sounds, soft, nontender, no hepatosplenomegaly Musculoskeletal: Extremities: extremities normal to inspection; no cyanosis and no clubbing Skin: no rashes, warm and dry Neurologic: CN's II-XI intact bilaterally, moves all extremities, + focal motor deficit (4/5 strength throughout lower extremities) and awake Speech / Cognition: + abnormal speech (with slight impediment,no slurring) tongue protrudes straight, no facial droop Psychiatric: A+Ox3, euthymic affect Results & Data Results & Data ([facility]) Vital Signs (Past 12 Hours) Vital Signs Temp Pulse Resp BP Pulse Ox O2 Del Method 06/28/22 15:21 37.7 C H 82 18 103/60 90 Room Air 06/28/22 11:32 37.3 C 103 H 109/68 93 Room Air 06/28/22 10:18 Room Air 06/28/22 08:18 36.9 C 107 H 18 109/71 90 Laboratory Results 06/28/22 06/28/22 06/28/22 Range/Units 16:30 11:34 07:38 WBC (4.8-10.8) K/ul RBC (4.63-6.08) M/uL Hgb (14.0-18.0) g/dl Hct (40.1-51.0) % MCV (80.0-100.0) fL MCH (25.0-34.0) pg MCHC (32.0-36.0) g/dL RDW Std Deviation (36.4-46.3) fL RDW Coeff of Radha (11.5-14.5) % Plt Count (130-400) K/uL MPV (9.4-12.4) fL Sodium (136-145) mmol/L Potassium (3.5-5.1) mmol/L Chloride (98-107) mmol/L Carbon Dioxide (21-32) mmol/L Anion Gap (3-11) BUN (6-23) mg/dl Creatinine (0.6-1.4) mg/dl Est Cr Clr Drug Dosing ml/min Est GFR ( Amer) ml/min Est GFR (Non-Af Amer) ml/min BUN/Creatinine Ratio (10-20) Glucose (70-99(Fasting)) mg/dl POC Glucose 150 H 233 H 170 H (70-99) mg/dl Calcium (8.5-10.1) mg/dl 06/28/22 06/28/22 06/27/22 Range/Units 06:39 06:39 20:00 WBC 11.04 H (4.8-10.8) K/ul RBC 3.19 L (4.63-6.08) M/uL Hgb 9.9 L (14.0-18.0) g/dl Hct 30.0 L (40.1-51.0) % MCV 94.0 (80.0-100.0) fL MCH 31.0 (25.0-34.0) pg MCHC 33.0 (32.0-36.0) g/dL RDW Std Deviation 47.2 H (36.4-46.3) fL RDW Coeff of Radha 13.8 (11.5-14.5) % Plt Count 183 (130-400) K/uL MPV 11.8 (9.4-12.4) fL Sodium 136 (136-145) mmol/L Potassium 4.1 (3.5-5.1) mmol/L Chloride 101 (98-107) mmol/L Carbon Dioxide 29 (21-32) mmol/L Anion Gap 6 (3-11) BUN 28 H (6-23) mg/dl Creatinine 1.75 H (0.6-1.4) mg/dl Est Cr Clr Drug Dosing 50.1 ml/min Est GFR ( Amer) 44.7 ml/min Est GFR (Non-Af Amer) 38.6 ml/min BUN/Creatinine Ratio 16.0 (10-20) Glucose 174 H (70-99(Fasting)) mg/dl POC Glucose 209 H (70-99) mg/dl Calcium 8.4 L (8.5-10.1) mg/dl PG Care Time/CCT Total # of Minutes Spent Total Time Spent with Patient: Total time spent is greater than 50% in coordination of care (as documented) at patient's floor/unit and/or counseling patient: Coding Level of Care Code 56090 Subseq Hosp Care Lvl 3 Diagnoses Sepsis A41.9 UTI (urinary tract infection) N39.0 Diabetes E11.9 FRANCIE (acute kidney injury) N17.9 Dysarthria R47.1 CAD, multiple vessel I25.10 Dyslipidemia (high LDL; low HDL) E78.5 Hypertension I10 Chronic systolic CHF (congestive heart failure) I50.22 Acid reflux K21.9 Hypothyroidism E03.9 Hypothyroidism type: unspecified Gout M10.9 Chronicity: chronic Gout etiology: unspecified cause Gout site: unspecified site Cauda equina syndrome G83.4 (1) Gout Chronicity: chronic Gout etiology: unspecified cause Gout site: unspecified site (2) Hypothyroidism Hypothyroidism type: unspecified Qualified Code(s): E03.9 - Hypothyroidism, unspecified
[2022-06-28] MEDS: GADOXETATE DISODIUM IV ONE (19:44)
[2022-06-28] MEDS ORDERED: Nursing to Pharmacy Communication SCH (20:00)
[2022-06-28] MEDS ORDERED: CEFEPIME 1,000 MG in SYRINGE 0 ML IV SCH (21:00)
[2022-06-28] MEDS: TAMSULOSIN HCL 0.4 MG CAP PO SCH (21:03)
[2022-06-28] MEDS: FAMOTIDINE 40 MG TABLET PO SCH (21:04)
[2022-06-28] MEDS: HEPARIN SOD 5,000 UNIT/0.5 ML VIAL SQ SCH (22:53)
[2022-06-29] MEDS: LEVOTHYROXINE SODIUM 137 MCG TABLET PO SCH (05:58)
--- NOTE | 2022-06-29 07:23 | Magnetic Resonance Report ---
MRI OF THE BRAIN WITHOUT IV CONTRAST CLINICAL HISTORY: Speech difficulty. Headache and dizziness. COMPARISON STUDY: No priors. TECHNIQUE: MRI of the brain was performed utilizing various T1 and T2-weighted sequences in the axial , sagittal, and coronal planes. IV contrast was not administered for this examination. FINDINGS: Brain parenchyma: There is age-related involutional change noting minimal microangiopathic disease. T here is no hemorrhage or mass effect. There is no restricted diffusion to suggest acute ischemia. Gra y-white matter differentiation is preserved. No extra-axial fluid collection is seen. The cerebellar tonsils are normal in configuration. Ventricles, sulci, and cisterns: Prominent secondary to involutional change. Pituitary and sella: Unremarkable. Intracranial vasculature: Normal flow voids are maintained at the skull base. Orbits: The bony orbits are grossly intact. Orbital contents are normal in appearance. Sinuses and mastoids: There is a left mastoid effusion. The right mastoid air cells are clear. Mucosa l thickening is noted in the frontal and ethmoid sinuses. Calvarium: Unremarkable. Cervical cord: Partially visualized cervical spinal cord is normal in morphology and signal intensity . IMPRESSION: No acute intracranial abnormality. ACT 112: Negative or not required by law. Electronically signed by: Morris Coburn M.D. 06/29/2022 7:21 AM
[2022-06-29 08:59] LABS: Basophils # (auto) 0.06 K/uL (0-0.2); Basophils % (auto) 0.7 %; Eosinophils # (auto) 0.17 K/uL (0-0.50); Eosinophils % (auto) 1.9 %; Hemoglobin 9.8 g/dl (14.0-18.0); Immature Granulocytes # (auto) 0.04 K/uL (0.00-0.02); Immature Granulocytes % (auto) 0.5 %; Lymphocytes # (auto) 1.11 K/uL (1.2-3.4); Lymphocytes % (auto) 12.6 %; Mean Corpuscular Hemoglobin 30.2 pg (25.0-34.0); Mean Corpuscular Hgb Conc 32.7 g/dL (32.0-36.0); Mean Corpuscular Volume 92.6 fL (80.0-100.0); Mean Platelet Volume 11.8 fL (9.4-12.4); Monocytes # (auto) 0.81 K/uL (0.24-0.82); Monocytes % (auto) 9.2 %; Neutrophils # (auto) 6.62 K/uL (1.4-6.5); Neutrophils % (auto) 75.1 %; Platelet Count 191 K/uL (130-400); RDW Coefficient of Variation 13.7 % (11.5-14.5); RDW Standard Deviation 46.5 fL (36.4-46.3); Red Blood Count 3.24 M/uL (4.63-6.08); White Blood Count 8.81 K/ul (4.8-10.8)
[2022-06-29] MEDS: HEPARIN SOD 5,000 UNIT/0.5 ML VIAL SQ SCH ×2 (09:19→21:36)
[2022-06-29] MEDS: METOPROLOL SUCC 50MG EXT REL TAB PO SCH (09:20)
[2022-06-29] MEDS: SENNA 8.6 MG TAB PO SCH (09:20)
[2022-06-29] MEDS: CLOPIDOGREL BISULFATE 75 MG TAB PO SCH (09:20)
[2022-06-29] MEDS: allopurinoL 300 MG TAB PO SCH (09:20)
[2022-06-29] MEDS: ATORVASTATIN 40 MG TAB PO SCH (09:20)
[2022-06-29] MEDS: ASPIRIN 81 MG ECTAB PO SCH (09:21)
[2022-06-29] MEDS: GABAPENTIN 300 MG CAP PO SCH ×3 (09:21→21:37)
[2022-06-29 09:22] LABS: BUN Creatinine Ratio 16.2 (10-20); Calcium 8.7 mg/dl (8.5-10.1); Creatinine Clr Calc Pharmacy 59.2 ml/min; Est GFR (African American) 54.8 ml/min; Est GFR (Non-African American) 47.3 ml/min; Potassium 4.1 mmol/L (3.5-5.1)
[2022-06-29] MEDS: POLYETHYLENE (MIRALAX) 17 GM PACK PO PRN (09:24)
[2022-06-29] MEDS: ACETAMINOPHEN 500 MG TAB PO PRN (09:24)
[2022-06-29] MEDS: INSULIN ASPART PER UNIT SC SCH ×4 (09:28→21:33)
[2022-06-29] MEDS: LANTUS PER UNIT CHARGE SQ SCH ×2 (09:28→21:33)
--- NOTE | 2022-06-29 10:41 | CT Scan Report ---
CT OF THE ABDOMEN AND PELVIS WITHOUT CONTRAST CLINICAL HISTORY: UTI,persistent fever,assess for pyelo,abscess COMPARISON STUDY: CT of the abdomen and pelvis January 26, 2022. Renal ultrasound June 27, 2022. TECHNIQUE: Axial images of the abdomen and pelvis were obtained without IV contrast. Images were revi ewed in the axial, sagittal, and coronal planes. Automated exposure control was utilized for the james dy. A dose lowering technique was utilized adhering to the principles of ALARA. FINDINGS: There are trace bilateral pleural effusions. No pneumatosis, free air or portal venous gas is present. The gallbladder is contracted and contains a small gallstone. There is mild adjacent stra nding. These findings do not suggest acute cholecystitis. The appearance is similar to prior CT. Unen hanced images of liver, spleen, adrenal glands and pancreas are unremarkable. There is moderate perin ephric and periureteral stranding. There is no hydronephrosis. No urinary calculi are present. Hydrou reteronephrosis on ultrasound of June 27, 2022 has resolved. No renal fluid collection is identifie d on this unenhanced examination. Sensitivity for detection of hydronephrosis is diminished on this u nenhanced study. Bladder wall thickening is noted. This is similar to CT of February 15, 2022. No evidence for a bowel obstruction. Moderate amount stool within colon and rectum is present. IMPRESSION: 1. No urinary calculi or hydronephrosis. Resolution of bilateral hydroureteronephrosis on ultrasound of June 27, 2022. 2. Bilateral perinephric and periureteral stranding, a nonspecific finding. No renal fluid collection to suggest abscess on unenhanced exam. 3. Moderate amount stool within the colon and rectum. 4. Bladder wall thickening, likely chronic. ACT 112: Negative or not required by law. Electronically signed by: Kevin Del Angel M.D. 06/29/2022 10:39 AM
[2022-06-29] MEDS ORDERED: bisacodyL 10 MG SUPP PR STA (13:09)
[2022-06-29] MEDS: GADOXETATE DISODIUM IV ONE (15:26)
--- NOTE | 2022-06-29 17:31 | Hospitalist Progress Note ---
Date of Service June 29, 2022 Assessment & Plan (1) Sepsis: Plan: 71 yo male with history of cauda equina syndrome secondary to large disc herniation s/p L4-L5 decompression and discectomy, neurogenic bladder requiring self-catheterization 4-5 times daily, recurrent UTI presenting with sepsis - (SIRS 2/4 on arrival). Low blood pressure on arrival responsive to 1L NSS. Elevated procalcitonin. Most likely urinary source. UA is suggestive of infection. Nurse reports cloudy, purulent appearing urine. Prior cultures with Klebsiella. Renal US no abscess, has mod hydro bilat from neurogenic bladder and possibly enlarged prostate UTI with sepsis possibly due to intermittent straight catheterization Patient has improved following IVF and antibiotics. Had another high fever on evening of 06/28-could be from ongoing infection- perhaps pyelo or prostatitis? Is on appropriate abx, but need to r/o abscess on kidney Fever could also be drug fever? Ur cx growing E. coli, sensitive to Cefepime and ceftriaxone BCxs NGTD dcd IVFs after initial as he tends to be volume overloaded With mild FRANCIE now improving --check CT abd/pel--> bilat perinephric stranding, but no abscess-could be c/w pyelonephritis --change to ceftriaxone, dc Cefepime for narrower coverage -Initiated Oxybutynin 5mg po BID on admission to hopefully alleviate bladder spasms but may be making speech issues worse? Have since dcd -Tylenol PRN pain or fever -Zofran PRN nausea -Bladder scan as needed -Straight catheterization q 6 hours and PRN (2) UTI (urinary tract infection): Plan: source of sepsis as above (3) Diabetes: Plan: Blood sugarcontrolled, Patient is on oral agents, Glimepiride and Metformin as outpatient. 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 and now improved to 1.4 continue to hold lisinopril received fluids on admission has peripheral edema follow BMP renally dose meds (5) Dysarthria: Plan: has noticed this for the last few days since he has been sick this has happened to him in the past when acutely ill Nonfocal neuro exam otherwise checked brain MRI -negative for CVA consult Speech therapy appreciated--> reports definite dysarthria, recommends ENT and Speech Tx evals as outpt given h/o thyroid issues previously (required radioactive iodine ablation in 1976) -check TSH in AM -will refer to ENT and Speech as outpt (6) CAD, multiple vessel: Plan: Patient with history of multivessel CAD. Patient had cardiac catheterization performed on 11/01/21 at [facility] [place] which revealed multivessel disease. He had high risk PCI of LM/LAD/CX and orbital atherectomy. Patient completed Cardiac rehabilitation He remains on uninterrupted DAPT with ASA and Plavix x 12 months at least Presently with no chest discomfort -Continue ASA 81mg po daily, Plavix 75mg po daily, Atorvastatin 80mg po daily, Metoprolol 50mg po daily -Hold Lisinopril for FRANCIE (7) Dyslipidemia (high LDL; low HDL): Plan: Chronic. Patient on high intensity statin. Last lipid panel 12/07/21 wtih etad=916, LDL=75, HDL=29 -Continue Atorvastatin 80mg po daily (8) Hypertension: Plan: Patient with low blood pressure upon arrival in setting of sepsis secondary to urinary source. BP improved after 1L NSS -Continue metoprolol -Hold Lisinopril for now -Monitor BP (9) Chronic systolic CHF (congestive heart failure): Plan: Appears compensated. He does have some dependent bilateral LE edema. No cough, SOB. -Continue Metoprolol -Monitor fluid status -consider low dose lasix and watch renal function-was on lasix previously but held after had FRANCIE (10) Acid reflux: Plan: Chronic. Stable on medications -Continue Pepcid 40mg po qHS (11) Hypothyroidism: Plan: Chronic. Stable. Last TSH=3.043 on 02/15/22 -Continue Synthroid 137mcg po daily -check TSH in AM given dysphagia, f/u with ENT as outpt, consider outpt thyroid US. No thyroid nodules on exam (12) Gout: Plan: Chronic. Well controlled with medication -Continue Allopurinol 300mg po daily (13) Cauda equina syndrome: Plan: History of. s/p decompression. Patient with persistent symptoms, neurogenic bladder. He is able to ambulate with a walker. Performs self catheterization and takes stool softeners for regular BMs. -Continue Gabapentin 300mg po TID -Bladder ultrasound as needed -Straight catheterization q 6 hours and PRN -Fall precautions Ppx - heparin 5000 units q12h, HANK martínez Code - Full Dispo -continued stay Admission and Anticipated Discharge Date Admission Date: June 28, 2022 Subjective Pt reports feeling much better today. Appetite improved, no further nausea. No abd pain. Had a high fever again last night. No BM in many days which he reports is normal for him. Denies CP, SOB. Discussed results of brain MRI and CT abd/pel with him and . Discussed his care with Speech Therapy. Review of Systems Review of Systems: All systems reviewed & are unremarkable except as noted in HPI & below Physical Exam Constitutional: WD/WN, vitals as above Eyes: PERRL, conjunctivae normal, anicteric sclerae ENMT: external ear and nose normal, oropharynx normal Neck: trachea midline, no thyromegaly Respiratory: normal respiratory effort, lungs clear to auscultation Cardiovascular: Rate/Rhythm: regular rate and regular rhythm Heart Sounds: no murmur Extremities: + edema (1+ pitting edema legs bilat) Chest (Breasts): Chest: normal inspection of chest Gastrointestinal (Abdomen): normal bowel sounds, soft, nontender, no hepatosplenomegaly Musculoskeletal: Extremities: extremities normal to inspection; no cyanosis and no clubbing Skin: no rashes, warm and dry Neurologic: CN's II-XI intact bilaterally, moves all extremities, + focal motor deficit (4/5 strength throughout lower extremities) and awake Speech / Cognition: + abnormal speech (with slight impediment,no slurring) Psychiatric: A+Ox3, euthymic affect Results & Data Results & Data ([facility]) Vital Signs (Past 12 Hours) Vital Signs Temp Pulse Resp BP Pulse Ox O2 Del Method 06/29/22 16:44 37.0 C 80 16 113/71 91 Room Air 06/29/22 08:30 Room Air 06/29/22 08:29 37.4 C 101 H 16 111/70 90 Room Air Laboratory Results 06/29/22 06/29/22 06/29/22 Range/Units 20:14 16:57 11:59 WBC (4.8-10.8) K/ul RBC (4.63-6.08) M/uL Hgb (14.0-18.0) g/dl Hct (40.1-51.0) % MCV (80.0-100.0) fL MCH (25.0-34.0) pg MCHC (32.0-36.0) g/dL RDW Std Deviation (36.4-46.3) fL RDW Coeff of Radha (11.5-14.5) % Plt Count (130-400) K/uL MPV (9.4-12.4) fL Immature Gran % (Auto) % Neut % (Auto) % Lymph % (Auto) % Fannin % (Auto) % Eos % (Auto) % Baso % (Auto) % Neut # (Auto) (1.4-6.5) K/uL Lymph # (Auto) (1.2-3.4) K/uL Fannin # (Auto) (0.24-0.82) K/uL Eos # (Auto) (0-0.50) K/uL Baso # (Auto) (0-0.2) K/uL Immature Gran # (Auto) (0.00-0.02) K/uL Sodium (136-145) mmol/L Potassium (3.5-5.1) mmol/L Chloride (98-107) mmol/L Carbon Dioxide (21-32) mmol/L Anion Gap (3-11) BUN (6-23) mg/dl Creatinine (0.6-1.4) mg/dl Est Cr Clr Drug Dosing ml/min Est GFR ( Amer) ml/min Est GFR (Non-Af Amer) ml/min BUN/Creatinine Ratio (10-20) Glucose (70-99(Fasting)) mg/dl POC Glucose 156 H 153 H 275 H (70-99) mg/dl Calcium (8.5-10.1) mg/dl 06/29/22 06/29/22 06/29/22 Range/Units 08:32 08:32 07:32 WBC 8.81 (4.8-10.8) K/ul RBC 3.24 L (4.63-6.08) M/uL Hgb 9.8 L (14.0-18.0) g/dl Hct 30.0 L (40.1-51.0) % MCV 92.6 (80.0-100.0) fL MCH 30.2 (25.0-34.0) pg MCHC 32.7 (32.0-36.0) g/dL RDW Std Deviation 46.5 H (36.4-46.3) fL RDW Coeff of Radha 13.7 (11.5-14.5) % Plt Count 191 (130-400) K/uL MPV 11.8 (9.4-12.4) fL Immature Gran % (Auto) 0.5 % Neut % (Auto) 75.1 % Lymph % (Auto) 12.6 % Fannin % (Auto) 9.2 % Eos % (Auto) 1.9 % Baso % (Auto) 0.7 % Neut # (Auto) 6.62 H (1.4-6.5) K/uL Lymph # (Auto) 1.11 L (1.2-3.4) K/uL Fannin # (Auto) 0.81 (0.24-0.82) K/uL Eos # (Auto) 0.17 (0-0.50) K/uL Baso # (Auto) 0.06 (0-0.2) K/uL Immature Gran # (Auto) 0.04 H (0.00-0.02) K/uL Sodium 137 (136-145) mmol/L Potassium 4.1 (3.5-5.1) mmol/L Chloride 99 (98-107) mmol/L Carbon Dioxide 31 (21-32) mmol/L Anion Gap 7 (3-11) BUN 24 H (6-23) mg/dl Creatinine 1.48 H (0.6-1.4) mg/dl Est Cr Clr Drug Dosing 59.2 ml/min Est GFR ( Amer) 54.8 ml/min Est GFR (Non-Af Amer) 47.3 ml/min BUN/Creatinine Ratio 16.2 (10-20) Glucose 170 H (70-99(Fasting)) mg/dl POC Glucose 166 H (70-99) mg/dl Calcium 8.7 (8.5-10.1) mg/dl PG Care Time/CCT Total # of Minutes Spent Total Time Spent with Patient: Total time spent is greater than 50% in coordination of care (as documented) at patient's floor/unit and/or counseling patient: Coding Level of Care Code 17215 Subseq Hosp Care Lvl 3 Diagnoses Sepsis A41.9 UTI (urinary tract infection) N39.0 Diabetes E11.9 FRANCIE (acute kidney injury) N17.9 Dysarthria R47.1 CAD, multiple vessel I25.10 Dyslipidemia (high LDL; low HDL) E78.5 Hypertension I10 Chronic systolic CHF (congestive heart failure) I50.22 Acid reflux K21.9 Hypothyroidism E03.9 Hypothyroidism type: unspecified Gout M10.9 Chronicity: chronic Gout etiology: unspecified cause Gout site: unspecified site Cauda equina syndrome G83.4 (1) Gout Chronicity: chronic Gout etiology: unspecified cause Gout site: unspecified site (2) Hypothyroidism Hypothyroidism type: unspecified Qualified Code(s): E03.9 - Hypothyroidism, unspecified
[2022-06-29] MEDS: FAMOTIDINE 40 MG TABLET PO SCH (21:37)
[2022-06-29] MEDS: TAMSULOSIN HCL 0.4 MG CAP PO SCH (21:37)
[2022-06-29] MEDS: cefTRIAXone SODIUM 2,000 MG in DEXTROSE 5% 50 ML IV SCH (21:44)
[2022-06-30] MEDS: ACETAMINOPHEN 500 MG TAB PO PRN ×2 (00:13→06:02)
[2022-06-30] MEDS: LEVOTHYROXINE SODIUM 137 MCG TABLET PO SCH (06:02)
[2022-06-30 07:17] LABS: Creatinine Clr Calc Pharmacy 64.4 ml/min; Est GFR (African American) 60.7 ml/min; Est GFR (Non-African American) 52.3 ml/min
[2022-06-30 07:18] LABS: BUN Creatinine Ratio 16.3 (10-20); Calcium 8.6 mg/dl (8.5-10.1); Creatinine Clr Calc Pharmacy 64.9 ml/min; Est GFR (African American) 61.2 ml/min; Est GFR (Non-African American) 52.8 ml/min; Potassium 4.1 mmol/L (3.5-5.1)
[2022-06-30] MEDS: CLOPIDOGREL BISULFATE 75 MG TAB PO SCH (07:21)
[2022-06-30] MEDS: ASPIRIN 81 MG ECTAB PO SCH (07:21)
[2022-06-30] MEDS: METOPROLOL SUCC 50MG EXT REL TAB PO SCH (07:22)
[2022-06-30] MEDS: GABAPENTIN 300 MG CAP PO SCH ×3 (07:22→21:01)
[2022-06-30] MEDS: allopurinoL 300 MG TAB PO SCH (07:22)
[2022-06-30] MEDS: ATORVASTATIN 40 MG TAB PO SCH (07:22)
[2022-06-30] MEDS: SENNA 8.6 MG TAB PO SCH (07:22)
[2022-06-30] MEDS: HEPARIN SOD 5,000 UNIT/0.5 ML VIAL SQ SCH ×2 (07:23→21:01)
[2022-06-30 07:25] LABS: T3 Free 2.65 pg/ml (2.3-4.2); Thyroid Stimulating Hormone 2.269 uIu/ml (0.300-4.500)
[2022-06-30 07:27] LABS: T4 Free Thyroxine 1.06 ng/dl (0.61-1.60)
[2022-06-30 07:32] LABS: Folate (Folic Acid) 8.49 ng/ml (>5.38)
[2022-06-30] MEDS: INSULIN ASPART PER UNIT SC SCH ×4 (08:35→21:09)
[2022-06-30] MEDS: LANTUS PER UNIT CHARGE SQ SCH ×2 (08:36→21:09)
[2022-06-30] MEDS: CYANOCOBALAMIN 1000 MCG/ML VIAL IM SCH (11:20)
[2022-06-30] MEDS: IRON SUCROSE 300 MG in SODIUM CHLORIDE 0.9% 250 ML IV SCH (11:20)
--- NOTE | 2022-06-30 16:34 | Hospitalist Progress Note ---
Date of Service June 30, 2022 Assessment & Plan (1) Sepsis: Plan: 71 yo male with history of cauda equina syndrome secondary to large disc herniation s/p L4-L5 decompression and discectomy, neurogenic bladder requiring self-catheterization 4-5 times daily, recurrent UTI presenting with sepsis - (SIRS 2/4 on arrival). Low blood pressure on arrival responsive to 1L NSS. Elevated procalcitonin. Most likely urinary source. UA is suggestive of infection. Nurse reports cloudy, purulent appearing urine. Prior cultures with Klebsiella. Renal US no abscess, has mod hydro bilat from neurogenic bladder and possibly enlarged prostate UTI with sepsis possibly due to intermittent straight catheterization Patient has improved following IVF and antibiotics. Had another high fever on evening of 06/28-could be from ongoing infection- perhaps pyelo or prostatitis? Is on appropriate abx, but need to r/o abscess on kidney Fever could also be drug fever? No further fever since then, improving. Leukocytosis resolved Ur cx growing E. coli, sensitive to Cefepime and ceftriaxone BCxs remain NGTD dcd IVFs after initial as he tends to be volume overloaded With mild FRANCIE now improving Checked CT abd/pel 06/29--> bilat perinephric stranding, but no abscess-could be c/w pyelonephritis -initially on cefepime, then narrowed coverage after cx results back-continue ceftriaxone, eventually convert to po abx on discharge for total 10 days -Tylenol PRN pain or fever -Zofran PRN nausea -Bladder scan as needed -Straight catheterization q 6 hours and PRN (2) UTI (urinary tract infection): Plan: source of sepsis as above (3) B12 deficiency anemia: Plan: as above (4) Iron deficiency anemia: Plan: iron def anemia, transferrin sat low at 11%, ferritin elevated due to acute phase reactant with ongoinginfection give Venofer IV while here hgb 9-10 he has never had EGD/colonoscopy-recommend this as outpt (5) Diabetes: Plan: Blood sugar controlled, Patient is on oral agents, Glimepiride and Metformin as outpatient. Last SnkE8P=9.3 on 12/07/21 -Hold oral agents some occasional hyperglycemia here -Lantus 5u BID -ISS-tighten down today for improved control -Goal blood sugar 110 - 140 (6) Polyneuropathy: Plan: proven on recent EMG/NCS, specifically noted to NOT be related to lumbar radiculopathy -checked B12 given anemia--> severely low B12 replace with B12 1000 mcg IM daily x 3 days or as long as inpatient, then convert to po B12 after discharge follow levels as outpt in 1-2 months assess for improvement in neuropathy and sensory deficits over times with replacement -continue gabapentin for symptoms (7) FRANCIE (acute kidney injury): 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 and now improved to 1.3 continue to hold lisinopril received fluids on admission has peripheral edema follow BMP renally dose meds (8) Dysarthria: Plan: has noticed this for the last few days since he has been sick-ongoing although his acute illness is much improved this has happened to him in the past when acutely ill C/o some hoarseness occasionally but none noted here Nonfocal neuro exam otherwise checked brain MRI -negative for CVA consult Speech therapy appreciated--> reports definite dysarthria, recommends ENT and Speech Tx evals as outpt given h/o thyroid issues previously (required radioactive iodine ablation in 1976) TSH here normal, no thyroid nodules palpable -will refer to ENT and Speech as outpt (9) CAD, multiple vessel: Plan: Patient with history of multivessel CAD. Patient [place] [facility] [place]iv[place]. He had high risk PCI of LM/LAD/CX and orbital atherectomy. Patient completed Cardiac rehabilitation He remains on uninterrupted DAPT with ASA and Plavix x 12 months at least Presently with no chest discomfort -Continue ASA 81mg po daily, Plavix 75mg po daily, Atorvastatin 80mg po daily, Metoprolol 50mg po daily -Hold Lisinopril for FRANCIE (10) Dyslipidemia (high LDL; low HDL): Plan: Chronic. Patient on high intensity statin. Last lipid panel 12/07/21 wtih hszr=501, LDL=75, HDL=29 -Continue Atorvastatin 80mg po daily (11) Hypertension: Plan: Patient with low blood pressure upon arrival in setting of sepsis secondary to urinary source. BP improved after 1L NSS -Continue metoprolol -continue to hold Lisinopril for now -Monitor BP (12) Chronic systolic CHF (congestive heart failure): Plan: Appears compensated. He does have some dependent bilateral LE edema. No cough, SOB. -Continue Metoprolol -Monitor fluid status -consider low dose lasix and watch renal function-was on lasix previously but held after had FRANCIE (13) Acid reflux: Plan: Chronic. Stable on medications -Continue Pepcid 40mg po qHS (14) Hypothyroidism: Plan: Chronic. Stable. TSH here normal, FT3 and FT4 normal -Continue Synthroid 137mcg po daily given dysphagia, f/u with ENT as outpt, consider outpt thyroid US. No thyroid nodules on exam (15) Gout: Plan: Chronic. Well controlled with medication -Continue Allopurinol 300mg po daily (16) Cauda equina syndrome: Plan: History of. s/p decompression. Patient with persistent symptoms, neurogenic bladder. He is able to ambulate with a walker. Performs self catheterization and takes stool softeners for regular BMs. -Continue Gabapentin 300mg po TID -Bladder ultrasound as needed -Straight catheterization q 6 hours and PRN -Fall precautions Ppx - heparin 5000 units q12h, HANK mauricio Code - Full Dispo -continued stay but improving, assess by PT/OT to see if safe for return to home possibly in 1-2 days Admission and Anticipated Discharge Date Admission Date: June 28, 2022 Subjective Pt OOB to chair today, feels well. No abd pains but still no BM. Had sweats overnight but no fevers. Is eating more today. Has chronic burning and shooting pains in feet and legs, decreased sensation to cold temp in left leg. Did have a brief episode of lightheadedness after lifting his legs up for me in the chair after sitting for several hours. Review of Systems Review of Systems: All systems reviewed & are unremarkable except as noted in HPI & below Physical Exam Constitutional: WD/WN, vitals as above Eyes: + anicteric sclerae ENMT: external ear and nose normal, oropharynx normal Neck: trachea midline, no thyromegaly Respiratory: normal respiratory effort, lungs clear to auscultation Cardiovascular: Rate/Rhythm: regular rate and regular rhythm Heart Sounds: no murmur Extremities: + edema (1+ pitting edema legs bilat L>R) Chest (Breasts): Chest: normal inspection of chest Gastrointestinal (Abdomen): normal bowel sounds, soft, nontender, no hepatosplenomegaly Musculoskeletal: Extremities: extremities normal to inspection; no cyanosis and no clubbing Skin: no rashes, warm and dry Neurologic: CN's II-XI intact bilaterally, moves all extremities, + focal motor deficit (4/5 strength throughout lower extremities) and awake Speech / Cognition: + abnormal speech (with slight impediment,no slurring) Psychiatric: A+Ox3, euthymic affect Results & Data Results & Data ([facility]) Vital Signs (Past 12 Hours) Vital Signs Temp Pulse Resp BP BP Pulse Ox O2 Del Method 06/30/22 15:49 37.0 C 75 18 112/68 94 Room Air 06/30/22 11:17 36.8 C 61 18 103/65 91 Room Air 06/30/22 07:58 36.3 C L 74 20 122/72 92 Room Air Laboratory Results 06/30/22 06/30/22 06/30/22 Range/Units 11:34 07:18 06:20 Sodium (136-145) mmol/L Potassium (3.5-5.1) mmol/L Chloride (98-107) mmol/L Carbon Dioxide (21-32) mmol/L Anion Gap (3-11) BUN (6-23) mg/dl Creatinine (0.6-1.4) mg/dl Est Cr Clr Drug Dosing ml/min Est GFR ( Amer) ml/min Est GFR (Non-Af Amer) ml/min BUN/Creatinine Ratio (10-20) Glucose (70-99(Fasting)) mg/dl POC Glucose 268 H 144 H (70-99) mg/dl Calcium (8.5-10.1) mg/dl Iron (35-175) mcg/dl TIBC (250-450) mcg/dl Unsaturated IBC (155-355) mcg/dl Transferrin % Sat (20-50) % Ferritin (8-388) ng/ml Vitamin B12 (180-914) pg/ml Folate (>5.38) ng/ml TSH 2.269 (0.300-4.500) uIu/ml Free T4 1.06 (0.61-1.60) ng/dl Free T3 (2.3-4.2) pg/ml 06/30/22 06/30/22 06/30/22 Range/Units 06:20 06:20 06:20 Sodium 136 (136-145) mmol/L Potassium 4.1 (3.5-5.1) mmol/L Chloride 100 (98-107) mmol/L Carbon Dioxide 31 (21-32) mmol/L Anion Gap 5 (3-11) BUN 22 (6-23) mg/dl Creatinine 1.35 1.36 (0.6-1.4) mg/dl Est Cr Clr Drug Dosing 64.9 64.4 ml/min Est GFR ( Amer) 61.2 60.7 ml/min Est GFR (Non-Af Amer) 52.8 52.3 ml/min BUN/Creatinine Ratio 16.3 (10-20) Glucose 159 H (70-99(Fasting)) mg/dl POC Glucose (70-99) mg/dl Calcium 8.6 (8.5-10.1) mg/dl Iron 26 L (35-175) mcg/dl TIBC 239 L (250-450) mcg/dl Unsaturated IBC 213 (155-355) mcg/dl Transferrin % Sat 11 L (20-50) % Ferritin 283.0 (8-388) ng/ml Vitamin B12 139 L (180-914) pg/ml Folate 8.49 (>5.38) ng/ml TSH (0.300-4.500) uIu/ml Free T4 (0.61-1.60) ng/dl Free T3 2.65 (2.3-4.2) pg/ml 06/29/22 06/29/22 Range/Units 20:14 16:57 Sodium (136-145) mmol/L Potassium (3.5-5.1) mmol/L Chloride (98-107) mmol/L Carbon Dioxide (21-32) mmol/L Anion Gap (3-11) BUN (6-23) mg/dl Creatinine (0.6-1.4) mg/dl Est Cr Clr Drug Dosing ml/min Est GFR ( Amer) ml/min Est GFR (Non-Af Amer) ml/min BUN/Creatinine Ratio (10-20) Glucose (70-99(Fasting)) mg/dl POC Glucose 156 H 153 H (70-99) mg/dl Calcium (8.5-10.1) mg/dl Iron (35-175) mcg/dl TIBC (250-450) mcg/dl Unsaturated IBC (155-355) mcg/dl Transferrin % Sat (20-50) % Ferritin (8-388) ng/ml Vitamin B12 (180-914) pg/ml Folate (>5.38) ng/ml TSH (0.300-4.500) uIu/ml Free T4 (0.61-1.60) ng/dl Free T3 (2.3-4.2) pg/ml PG Care Time/CCT Total # of Minutes Spent Total Time Spent with Patient: Total time spent is greater than 50% in coordination of care (as documented) at patient's floor/unit and/or counseling patient: Coding Level of Care Code 59440 Subseq Hosp Care Lvl 3 Diagnoses Sepsis A41.9 UTI (urinary tract infection) N39.0 B12 deficiency anemia D51.9 Iron deficiency anemia D50.9 Diabetes E11.9 Polyneuropathy G62.9 FRANCIE (acute kidney injury) N17.9 Dysarthria R47.1 CAD, multiple vessel I25.10 Dyslipidemia (high LDL; low HDL) E78.5 Hypertension I10 Chronic systolic CHF (congestive heart failure) I50.22 Acid reflux K21.9 Hypothyroidism E03.9 Hypothyroidism type: unspecified Gout M10.9 Gout site: unspecified site Gout etiology: unspecified cause Chronicity: chronic Cauda equina syndrome G83.4 (1) Hypothyroidism Hypothyroidism type: unspecified Qualified Code(s): E03.9 - Hypothyroidism, unspecified (2) Gout Gout site: unspecified site Gout etiology: unspecified cause Chronicity: chronic
[2022-06-30] MEDS ORDERED: bisacodyL 10 MG SUPP PR STA (16:35)
[2022-06-30] MEDS: TAMSULOSIN HCL 0.4 MG CAP PO SCH (21:00)
[2022-06-30] MEDS: FAMOTIDINE 40 MG TABLET PO SCH (21:00)
[2022-06-30] MEDS: cefTRIAXone SODIUM 2,000 MG in DEXTROSE 5% 50 ML IV SCH (21:00)
[2022-07-01] MEDS: LEVOTHYROXINE SODIUM 137 MCG TABLET PO SCH (05:33)
[2022-07-01 05:40] LABS: Basophils # (auto) 0.04 K/uL (0-0.2); Basophils % (auto) 0.6 %; Eosinophils # (auto) 0.32 K/uL (0-0.50); Immature Granulocytes # (auto) 0.02 K/uL (0.00-0.02); Immature Granulocytes % (auto) 0.3 %; Lymphocytes # (auto) 1.33 K/uL (1.2-3.4); Lymphocytes % (auto) 20.7 %; Mean Corpuscular Hemoglobin 30.3 pg (25.0-34.0); Mean Corpuscular Hgb Conc 33.3 g/dL (32.0-36.0); Mean Corpuscular Volume 90.9 fL (80.0-100.0); Mean Platelet Volume 11.3 fL (9.4-12.4); Monocytes # (auto) 0.65 K/uL (0.24-0.82); Monocytes % (auto) 10.1 %; Neutrophils # (auto) 4.05 K/uL (1.4-6.5); Neutrophils % (auto) 63.3 %; Platelet Count 231 K/uL (130-400); RDW Coefficient of Variation 13.3 % (11.5-14.5); RDW Standard Deviation 44.1 fL (36.4-46.3); White Blood Count 6.41 K/ul (4.8-10.8)
--- NOTE | 2022-07-01 05:54 | Communication Note ---
Date of Service: July 01, 2022 At 0515, patient was assessed by RN who noticed significant slurred speech when compared to previous interaction. Stroke Alert called. VS - 141/81, 82, 18, 92% on RA and 37 degrees Celsius. On exam, patient with slurred speech, mild L sided facial droop, and mild tongue deviation to the left. NIH 1. Orders placed for STAT Head CT and labs. After head CT, patient then taken to room 108 for [facility] telestroke consult with Dr. Art Molina, neurology. Notified by [facility] of negative head CT. Discussed with Dr. Molina and with shared decision making with patient, decision to defer TNK. Patient does note that this symptom of slurred speech happens intermittently with him, especially when waking up. Recommendations per Dr. Molina to continue observation/monitoring and if patient with continued symptoms, get brain MRI and consult in-house neurology. Resident Activity Tracking Resident Involvement: Resident Care Provided Care Provided: Adult [facility]
[2022-07-01 05:58] LABS: BUN Creatinine Ratio 15.6 (10-20); Calcium 8.7 mg/dl (8.5-10.1); Creatinine Clr Calc Pharmacy 71.8 ml/min; Est GFR (African American) 69.2 ml/min; Est GFR (Non-African American) 59.7 ml/min; Magnesium 1.9 mg/dl (1.7-2.4); Potassium 4.1 mmol/L (3.5-5.1)
--- NOTE | 2022-07-01 06:27 | CT Scan Report ---
CT OF THE HEAD WITHOUT CONTRAST CLINICAL HISTORY: eval stroke; acute slurred speech and facial droop COMPARISON STUDY: MRI of the brain June 28, 2022. CT DOSE: 1812.08 mGy.cm TECHNIQUE: Helical axial images of the head were obtained without IV contrast. Automated exposure con trol was utilized for the study. A dose lowering technique was utilized adhering to the principles o f ALARA. FINDINGS: No acute intracranial hemorrhage, midline shift or mass effect is present. The ventricular system is unremarkable. The basal cisterns are patent. No extra-axial collections are present. There are no findings to suggest acute dural sinus thrombosis or acute territorial infarct. No significant calvarial abnormalities are present. There is minimal ethmoid sinus mucosal thickening. IMPRESSION: No acute intracranial findings. ACT 112: Negative or not required by law. Electronically signed by: Kevin Del Angel M.D. 07/01/2022 6:24 AM
[2022-07-01] MEDS: GABAPENTIN 300 MG CAP PO SCH ×3 (07:21→20:53)
[2022-07-01] MEDS: HEPARIN SOD 5,000 UNIT/0.5 ML VIAL SQ SCH ×2 (07:21→20:54)
[2022-07-01] MEDS: ATORVASTATIN 40 MG TAB PO SCH (07:22)
[2022-07-01] MEDS: SENNA 8.6 MG TAB PO SCH ×2 (07:22→20:53)
[2022-07-01] MEDS: CLOPIDOGREL BISULFATE 75 MG TAB PO SCH (07:22)
[2022-07-01] MEDS: allopurinoL 300 MG TAB PO SCH (07:22)
[2022-07-01] MEDS: ASPIRIN 81 MG ECTAB PO SCH (07:22)
[2022-07-01] MEDS: METOPROLOL SUCC 50MG EXT REL TAB PO SCH (07:23)
[2022-07-01] MEDS: CYANOCOBALAMIN 1000 MCG/ML VIAL IM SCH (07:27)
[2022-07-01] MEDS ORDERED: PHARMACIST DISCHARGE MED REC CONSULT PRN (09:07)
[2022-07-01] MEDS: INSULIN ASPART PER UNIT SC SCH ×4 (09:53→21:28)
[2022-07-01] MEDS: LANTUS PER UNIT CHARGE SQ SCH ×2 (10:08→21:28)
[2022-07-01] MEDS ORDERED: OPTIRAY 300 500mL IV ONE (11:14)
[2022-07-01] MEDS: IRON SUCROSE 300 MG in SODIUM CHLORIDE 0.9% 250 ML IV SCH (11:22)
--- NOTE | 2022-07-01 11:53 | CT Scan Report ---
CT angio neck with con, CT angio head w con CLINICAL HISTORY: 71 years-old Male with TIA. Acute strokelike symptoms COMPARISON STUDY: Head CT of same day, brain MRI 06/28/2022 TECHNIQUE: Following the IV administration of 108 mL of Optiray, CT angiogram of the head and neck wa s performed from the aortic arch to the skull apex. Images are reviewed in the axial, sagittal, and c oronal planes. 3-D MIPS images are created and assessed. IV contrast was administered without complic ation. All measurements were calculated based on NASCET criteria. A dose lowering technique was util ized adhering to the principles of ALARA. CT DOSE: 633.11 mGy.cm FINDINGS: Three-vessel morphology of the thoracic aortic arch. Patency of the innominate and imaged subclavian arteries. The common carotid arteries are patent. Moderate left with moderate to extensive atheroscle rotic plaque of the carotid bulbs and proximal cervical segments of the internal carotid arteries res ults in less than 50% stenosis bilaterally. Additional atherosclerotic plaque of the cavernous, clino id and supraclinoid segments of the internal carotid arteries resulting in less than 50% narrowing. T he middle and anterior cerebral arteries appear patent. Developmentally diminutive left A1 segment. 5 0% luminal narrowing involves the origin of the left vertebral artery. Mild stenosis of less than 50% involves the V2 segments of the vertebral arteries at the level of C3 secondary to facet arthropathy and uncovertebral spurring. The basilar and posterior cerebral arteries appear patent. The cerebral venous sinuses appear patent. There is no abnormal intracranial enhancement. The lung apices are clear without pneumothorax. Subcentimeter upper mediastinal lymph nodes. Unremark able soft tissues. Degenerative changes of the spine. IMPRESSION: Atherosclerotic vascular disease without aneurysm, dissection, high-grade stenosis or art erial occlusion. ACT 112: Negative or not required by law. The above report was generated using voice recognition software. It may contain grammatical, syntax o r spelling errors. Electronically signed by: Amador Sullivan M.D. 07/01/2022 11:50 AM
--- NOTE | 2022-07-01 15:01 | Hospitalist Progress Note ---
Date of Service July 01, 2022 Assessment & Plan (1) Sepsis: Plan: 71 yo male with history of cauda equina syndrome secondary to large disc herniation s/p L4-L5 decompression and discectomy, neurogenic bladder requiring self-catheterization 4-5 times daily, recurrent UTI presenting with sepsis - (SIRS 2/4 on arrival). Low blood pressure on arrival responsive to 1L NSS. Elevated procalcitonin. Most likely urinary source. UA is suggestive of infection. Nurse reports cloudy, purulent appearing urine. Prior cultures with Klebsiella. Renal US no abscess, has mod hydro bilat from neurogenic bladder and possibly enlarged prostate Had another high fever on evening of 06/28-could be from ongoing infection- perhaps pyelo or prostatitis? Is on appropriate abx, but need to r/o abscess on kidney Fever could also be drug fever? No further fever since then, improving. Leukocytosis resolved Checked CT abd/pel 06/29--> bilat perinephric stranding, but no abscess-could be c/w pyelonephritis UTI with sepsis possibly due to intermittent straight catheterization-resolved Sepsis resolved following IVF and antibiotics. Ur cx growing E. coli, sensitive to Cefepime and ceftriaxone BCxs remain NGTD dcd IVFs after initial as he tends to be volume overloaded With mild FRANCIE now improving -initially on cefepime, then narrowed coverage after cx results back-continue ceftriaxone, eventually convert to po cefdinir on discharge for total 14 days -Tylenol PRN pain or fever -Zofran PRN nausea -Bladder scan as needed -Straight catheterization q 6 hours and PRN (2) UTI (urinary tract infection): Plan: source of sepsis as above (3) B12 deficiency anemia: Plan: severe, with associated polyneuropathy giving IM B12 while here and then convert to B12 1000 mcg po daily check levels as outpt (4) Iron deficiency anemia: Plan: iron def anemia, transferrin sat low at 11%, ferritin elevated due to acute phase reactant with ongoing infection give Venofer IV while here x 3 doses hgb 9-10 he has never had EGD/colonoscopy-recommend this as outpt, discussed with patient and (5) Diabetes: Plan: Blood sugar controlled, Patient is on oral agents, Glimepiride and Metformin as outpatient. 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 and now improved to 1.2 continue to hold lisinopril received fluids on admission has peripheral edema which is now improved with HANK mauricio follow BMP renally dose meds (8) Dysarthria: Plan: has noticed this for the last few days since he has been sick-ongoing although his acute illness is much improved this has happened to him in the past when acutely ill C/o some hoarseness occasionally but none noted here Nonfocal neuro exam otherwise checked brain MRI -negative for CVA consult Speech therapy appreciated--> reports definite dysarthria, recommends ENT and Speech Tx evals as outpt given h/o thyroid issues previously (required radioactive iodine ablation in 1976) TSH here normal, no thyroid nodules palpable -will refer to ENT and Speech as outpt Had stroke alert called early AM 07/01 for slurred speech, left facial droop possibly--> no TNK given, symptoms resolved except he has had the slurred speech which reports always gets worse when he is sick with infection. Doubt TIA or CVA -added Neuro checks -check ECHO -moved to tele for arrhythmia monitoring and recommend 30 day cardiac event monitor after discharge -already on DAPT, high intensity statin for severe CAD -checked CTA head/neck--> < 50% bilat THERESA,vertebral artery stenosis -check lipids, HgbA1C in AM -Neuro consult ordered (9) CAD, multiple vessel: Plan: Patient with history of multivessel CAD. Patient had cardiac catheterization performed on 11/01/21 at [facility] [place] which revealed multivessel disease. He had high risk PCI of LM/LAD/CX and orbital atherectomy. Patient completed Cardiac rehabilitation He remains on uninterrupted DAPT with ASA and Plavix x 12 months at least Presently with no chest discomfort -Continue ASA 81mg po daily, Plavix 75mg po daily, Atorvastatin 80mg po daily, Metoprolol 50mg po daily -Hold Lisinopril for FRANCIE (10) Dyslipidemia (high LDL; low HDL): Plan: Chronic. Patient on high intensity statin. Last lipid panel 12/07/21 wtih cho l=142, LDL=75, HDL=29 -Continue Atorvastatin 80mg po daily (11) Hypertension: Plan: Patient with low blood pressure upon arrival in setting of sepsis secondary to urinary source. BP improved after 1L NSS -Continue metoprolol -continue to hold Lisinopril for now -Monitor BP (12) Chronic systolic CHF (congestive heart failure): Plan: Appears compensated. He does have some dependent bilateral LE edema. No cough, SOB. -Continue Metoprolol -Monitor fluid status -consider low dose lasix and watch renal function-was on lasix previously but held after had FRANCIE, peripheral edema improved with HANK hose (13) Acid reflux: Plan: Chronic. Stable on medications -Continue Pepcid 40mg po qHS (14) Hypothyroidism: Plan: Chronic. Stable. TSH here normal, FT3 and FT4 normal -Continue Synthroid 137mcg po daily given dysphagia, f/u with ENT as outpt, consider outpt thyroid US. No thyroid nodules on exam (15) Gout: Plan: Chronic. Well controlled with medication -Continue Allopurinol 300mg po daily (16) Cauda equina syndrome: Plan: History of. s/p decompression. Patient with persistent symptoms, neurogenic bladder. He is able to ambulate with a walker. Performs self catheterization and takes stool softeners for regular BMs. -Continue Gabapentin 300mg po TID -Bladder ultrasound as needed -Straight catheterization q 6 hours and PRN -Fall precautions Ppx - heparin 5000 units q12h, HANK hose Code - Full Dispo -continued stay but improving, PT recommends home with home health, likely discharge to home tomorrow Discussed care with on phone Admission and Anticipated Discharge Date Admission Date: June 28, 2022 Subjective Pt was a stroke alert overnight as he woke up and was having his typical slurred speech and was thought to have a left facial droop. CT head neg, not given TNK as per tele stroke consult. He reports he feels fine and actually feels the best he has in a long time. He denies any new/worsening weakness. He does not appear to have a facial droop to me and his speech actually is the clearest today that I have seen since admission. Placed on tele after stroke consult-no events thus far. Review of Systems Review of Systems: All systems reviewed & are unremarkable except as noted in HPI & below moved bowels today Physical Exam Constitutional: WD/WN, vitals as above Eyes: PERRL, conjunctivae normal, anicteric sclerae + anicteric sclerae ENMT: external ear and nose normal, oropharynx normal Neck: trachea midline, no thyromegaly Respiratory: normal respiratory effort, lungs clear to auscultation Cardiovascular: Rate/Rhythm: regular rate and regular rhythm Heart Sounds: no murmur Extremities: no edema (with HANK hose in place, edema resolved) Chest (Breasts): Chest: normal inspection of chest Gastrointestinal (Abdomen): normal bowel sounds, soft, nontender, no hepatosplenomegaly Musculoskeletal: Extremities: extremities normal to inspection; no cyanosis and no clubbing Skin: no rashes, warm and dry Neurologic: CN's II-XI intact bilaterally, moves all extremities, + focal motor deficit (4/5 strength throughout lower extremities) and awake Speech / Cognition: + abnormal speech (with slight impediment,improved from previous) no facial droop, no tongue deviation specifically Psychiatric: A+Ox3, euthymic affect Results & Data Results & Data ([facility]) Vital Signs (Past 12 Hours) Vital Signs Temp Pulse Resp BP BP Pulse Ox O2 Del Method 07/01/22 11:45 36.8 C 89 18 127/71 94 Room Air 07/01/22 08:46 37.0 C 76 18 137/79 91 Room Air Laboratory Results 07/01/22 07/01/22 07/01/22 Range/Units 11:36 07:14 05:28 WBC (4.8-10.8) K/ul RBC (4.63-6.08) M/uL Hgb (14.0-18.0) g/dl Hct (40.1-51.0) % MCV (80.0-100.0) fL MCH (25.0-34.0) pg MCHC (32.0-36.0) g/dL RDW Std Deviation (36.4-46.3) fL RDW Coeff of Radha (11.5-14.5) % Plt Count (130-400) K/uL MPV (9.4-12.4) fL Immature Gran % (Auto) % Neut % (Auto) % Lymph % (Auto) % Cochran % (Auto) % Eos % (Auto) % Baso % (Auto) % Neut # (Auto) (1.4-6.5) K/uL Lymph # (Auto) (1.2-3.4) K/uL Cochran # (Auto) (0.24-0.82) K/uL Eos # (Auto) (0-0.50) K/uL Baso # (Auto) (0-0.2) K/uL Immature Gran # (Auto) (0.00-0.02) K/uL Sodium (136-145) mmol/L Potassium (3.5-5.1) mmol/L Chloride (98-107) mmol/L Carbon Dioxide (21-32) mmol/L Anion Gap (3-11) BUN (6-23) mg/dl Creatinine (0.6-1.4) mg/dl Est Cr Clr Drug Dosing ml/min Est GFR ( Amer) ml/min Est GFR (Non-Af Amer) ml/min BUN/Creatinine Ratio (10-20) Glucose (70-99(Fasting)) mg/dl POC Glucose 235 H 167 H (70-99) mg/dl Lactate 1.0 (0.4-2.0) mmol/L Calcium (8.5-10.1) mg/dl Magnesium (1.7-2.4) mg/dl 07/01/22 07/01/22 07/01/22 Range/Units 05:28 05:28 05:23 WBC 6.41 (4.8-10.8) K/ul RBC 3.30 L (4.63-6.08) M/uL Hgb 10.0 L (14.0-18.0) g/dl Hct 30.0 L (40.1-51.0) % MCV 90.9 (80.0-100.0) fL MCH 30.3 (25.0-34.0) pg MCHC 33.3 (32.0-36.0) g/dL RDW Std Deviation 44.1 (36.4-46.3) fL RDW Coeff of Radha 13.3 (11.5-14.5) % Plt Count 231 (130-400) K/uL MPV 11.3 (9.4-12.4) fL Immature Gran % (Auto) 0.3 % Neut % (Auto) 63.3 % Lymph % (Auto) 20.7 % Cochran % (Auto) 10.1 % Eos % (Auto) 5.0 % Baso % (Auto) 0.6 % Neut # (Auto) 4.05 (1.4-6.5) K/uL Lymph # (Auto) 1.33 (1.2-3.4) K/uL Cochran # (Auto) 0.65 (0.24-0.82) K/uL Eos # (Auto) 0.32 (0-0.50) K/uL Baso # (Auto) 0.04 (0-0.2) K/uL Immature Gran # (Auto) 0.02 (0.00-0.02) K/uL Sodium 129 L (136-145) mmol/L Potassium 4.1 (3.5-5.1) mmol/L Chloride 94 L (98-107) mmol/L Carbon Dioxide 31 (21-32) mmol/L Anion Gap 4 (3-11) BUN 19 (6-23) mg/dl Creatinine 1.22 (0.6-1.4) mg/dl Est Cr Clr Drug Dosing 71.8 ml/min Est GFR ( Amer) 69.2 ml/min Est GFR (Non-Af Amer) 59.7 ml/min BUN/Creatinine Ratio 15.6 (10-20) Glucose 175 H (70-99(Fasting)) mg/dl POC Glucose 182 H (70-99) mg/dl Lactate (0.4-2.0) mmol/L Calcium 8.7 (8.5-10.1) mg/dl Magnesium 1.9 (1.7-2.4) mg/dl 06/30/22 06/30/22 Range/Units 20:36 16:42 WBC (4.8-10.8) K/ul RBC (4.63-6.08) M/uL Hgb (14.0-18.0) g/dl Hct (40.1-51.0) % MCV (80.0-100.0) fL MCH (25.0-34.0) pg MCHC (32.0-36.0) g/dL RDW Std Deviation (36.4-46.3) fL RDW Coeff of Radha (11.5-14.5) % Plt Count (130-400) K/uL MPV (9.4-12.4) fL Immature Gran % (Auto) % Neut % (Auto) % Lymph % (Auto) % Cochran % (Auto) % Eos % (Auto) % Baso % (Auto) % Neut # (Auto) (1.4-6.5) K/uL Lymph # (Auto) (1.2-3.4) K/uL Cochran # (Auto) (0.24-0.82) K/uL Eos # (Auto) (0-0.50) K/uL Baso # (Auto) (0-0.2) K/uL Immature Gran # (Auto) (0.00-0.02) K/uL Sodium (136-145) mmol/L Potassium (3.5-5.1) mmol/L Chloride (98-107) mmol/L Carbon Dioxide (21-32) mmol/L Anion Gap (3-11) BUN (6-23) mg/dl Creatinine (0.6-1.4) mg/dl Est Cr Clr Drug Dosing ml/min Est GFR ( Amer) ml/min Est GFR (Non-Af Amer) ml/min BUN/Creatinine Ratio (10-20) Glucose (70-99(Fasting)) mg/dl POC Glucose 200 H 186 H (70-99) mg/dl Lactate (0.4-2.0) mmol/L Calcium (8.5-10.1) mg/dl Magnesium (1.7-2.4) mg/dl Lab noted to have falsely low sodium levels today so doubt 129 is real PG Care Time/CCT Total # of Minutes Spent Total Time Spent with Patient: Total time spent is greater than 50% in coordination of care (as documented) at patient's floor/unit and/or counseling patient: Coding Level of Care Code 43121 Subseq Hosp Care Lvl 3 Diagnoses Sepsis A41.9 UTI (urinary tract infection) N39.0 B12 deficiency anemia D51.9 Iron deficiency anemia D50.9 Diabetes E11.9 Polyneuropathy G62.9 FRANCIE (acute kidney injury) N17.9 Dysarthria R47.1 CAD, multiple vessel I25.10 Dyslipidemia (high LDL; low HDL) E78.5 Hypertension I10 Chronic systolic CHF (congestive heart failure) I50.22 Acid reflux K21.9 Hypothyroidism E03.9 Hypothyroidism type: unspecified Gout M10.9 Gout site: unspecified site Gout etiology: unspecified cause Chronicity: chronic Cauda equina syndrome G83.4 (1) Hypothyroidism Hypothyroidism type: unspecified Qualified Code(s): E03.9 - Hypothyroidism, unspecified (2) Gout Gout site: unspecified site Gout etiology: unspecified cause Chronicity: chronic
[2022-07-01] MEDS ORDERED: bisacodyL 10 MG SUPP PR PRN (15:12)
[2022-07-01] MEDS: POLYETHYLENE (MIRALAX) 17 GM PACK PO SCH (17:04)
[2022-07-01 17:54] LABS: Anion Gap 6.4 (3-11)
[2022-07-01] MEDS: TAMSULOSIN HCL 0.4 MG CAP PO SCH (20:52)
[2022-07-01] MEDS: FAMOTIDINE 40 MG TABLET PO SCH (20:53)
[2022-07-01] MEDS: cefTRIAXone SODIUM 2,000 MG in DEXTROSE 5% 50 ML IV SCH (20:53)
--- NOTE | 2022-07-01 21:22 | Neurology Consultation ---
Date of Consultation July 01, 2022 Assessment & Plan (1) Dysarthria: Impression: The patient has baseline a lisp but recently had worsening speech disturbance which was likely secondary to sepsis. His speech is back to his baseline. Imaging studies did not show cerebrovascular accident. The patient has been on double antiplatelet treatment as well as high potency statin treatment for coronary artery disease. Plan: There is no indication to suggest cerebrovascular accident as a cause of the patient's dysarthria. The patient will continue using double antiplatelet treatment and high-dose Lipitor as before, which were started for coronary artery disease. No further recommendation. We will sign off. (2) Polyneuropathy: Impression: Recent EMG and nerve conduction study was consistent with a mixed type, sensorimotor, peripheral polyneuropathy. The patient has vitamin B12 deficiency, which has been treated. Other potential cause of peripheral polyneuropathy is diabetes mellitus. Plan: Continue treatment of vitamin B12 deficiency and diabetes mellitus. Fall precautions. (3) Sepsis: (4) CAD, multiple vessel: (5) Cauda equina syndrome: Impression: The patient has a long history of lumbar spine problems, and has had multiple lumbar spine surgeries. Since having another injury, the patient developed cauda equina syndrome and had lumbar spine decompression surgery with following urinary and bowel incontinence. Plan: The patient will be followed by spine surgery as scheduled before. (6) Lumbar stenosis: Plan Thank you for the consultation. History of Present Illness Reason for Consultation: Slurred speech, dysarthria Requesting Physician: Santa Chavez MD Attending Physician: Santa Chavez MD History of Present Illness The patient is a very pleasant 71-year-old gentleman, who was admitted to hospital with urosepsis on 06/27/2022. He was having some slurring of speech, which was considered to be secondary to sepsis. Apparently, the patient has had similar speech disturbance, while he was sick in the past. Last night, they reported worsening slurring of speech with questionable facial asymmetry, and code stroke was activated. Brain MRI was negative for acute or chronic cerebrovascular accident. CT angiography of head and neck did not show hemodynamically significant stenosis or obstruction. The patient has been on double antiplatelet treatment and high-dose Lipitor for coronary artery disease. He denies having strokes in the past. The patient has cauda equina syndrome secondary to disc herniation, which requ ired lumbar spine decompression surgery. The patient has history of lumbar spine degenerative changes status post multiple spinal surgeries. Since having the last spinal surgery, the patient has been incontinent to urine and bowel, and uses self-catheterization for urination. He gets frequent urinary tract infections. He reports that he has had hereditary speech disturbance with slight slurring, however, on admission, his speech was much different than his baseline. Currently, his speech is back to his normal. He denies any additional neurological symptoms. He has peripheral polyneuropathy and related sensory symptoms in lower extremities. Recent EMG and nerve conduction study did confirm peripheral polyneuropathy and did not show active lumbosacral radiculopathy. I have reviewed the patient's chart including imaging studies and visualized them personally. I have discussed the case with the patient and answered his questions in detail. Allergies Allergy/AdvReac Type Severity Reaction Status Date / Time bee venom protein (honey bee) Allergy Severe EXTREME Verified 06/26/22 22:35 SWELLING--STUNG ON HAND, ARM SWELLED TO SHOULDER. Penicillins Allergy Intermediate HIGH Verified 06/26/22 22:35 FEVER, RASH (NOTED ALLERGIC TO "ANY-CILLIN" Home Medications Medication Instructions Recorded Confirmed Type diaper,brief,adult,disposable #126 ea 03/07/21 04/20/22 Rx aspirin 81 mg tablet,delayed 81 mg PO QAM 05/02/21 06/26/22 History release Mattress (Air or other) #1 ea 05/03/21 04/20/22 Rx acetaminophen 500 mg tablet 1,000 mg PO Q6H PRN fever/Pain 05/17/21 06/26/22 History (Tylenol Extra Strength) sennosides 8.6 mg capsule (senna) 8.6 mg PO DAILY 07/26/21 06/26/22 History nitroglycerin 0.4 mg sublingual 0.4 mg sublingual DIRECTED PRN 09/04/2101/12 Rx tablet Chest Pain #30 tabs Saccharomyces boulardii 250 mg 250 mg PO BID 10/24/21 06/26/22 History capsule (Probiotic (S.boulardii)) metoprolol succinate 50 mg 50 mg PO DAILY #90 tabs 10/24/21 06/26/22 Rx tablet,extended release 24 hr gabapentin 300 mg capsule 300 mg PO TID #180 caps 12/05/21 06/26/22 Rx ondansetron HCl 4 mg tablet 4 mg PO Q8H PRN Nausea And Vomiting 01/02/22 06/26/22 History atorvastatin 80 mg tablet 80 mg PO QAM #90 tabs 01/12/22 06/26/22 Rx metformin 1,000 mg tablet 1,000 mg PO BID #180 tabs 01/17/22 06/26/22 Rx allopurinol 300 mg tablet 300 mg PO QAM #90 tabs 02/23/22 06/26/22 Rx omeprazole 20 mg capsule,delayed 20 mg PO QAM #90 caps 02/23/22 06/26/22 Rx release lisinopril 5 mg tablet 5 mg PO DAILY #90 tabs 04/10/22 06/26/22 Rx famotidine 40 mg tablet 40 mg PO HS #90 tabs 04/18/22 06/26/22 Rx levothyroxine 137 mcg tablet 137 mcg PO DAILY #90 tabs 05/07/22 06/26/22 Rx tamsulosin 0.4 mg capsule 0.4 mg PO HS #90 caps 05/14/22 06/26/22 Rx clopidogrel 75 mg tablet 75 mg PO DAILY #90 tabs 05/25/22 06/26/22 Rx cetirizine 10 mg tablet 10 mg PO QAM PRN Seasonal 06/11/22 06/26/22 Rx Allergies #90 tabs glimepiride 2 mg tablet 2 mg PO QAM #90 tabs 06/11/22 06/26/22 Rx Patient History Medical History Allergic rhinitis B12 deficiency anemia CAD, multiple vessel Cauda equina syndrome (12/2020) Chronic systolic CHF (congestive heart failure) Constipation Diabetes Dyslipidemia (high LDL; low HDL) GERD (gastroesophageal reflux disease) Gout History of pulmonary embolism (01/23/21) Hx of testicular cancer Hypertension Hypothyroidism Iron deficiency anemia Ischemic cardiomyopathy Lumbar disc herniation with radiculopathy Neurogenic bladder Neurogenic bowel Polyneuropathy Spinal stenosis, lumbar region with neurogenic claudication Urinary retention Surgical History Hx of total hip arthroplasty S/P coronary artery stent placement S/P orchiopexy 1976 Status post lumbar surgery (01/18/21) lumbar decompression bilateral medial facetectomies and foraminotomies at L3- L4, L4-L5, spinal fusion L4-L5, posterior instrumentation L4-L5, Family History Father Lung cancer Cancer brain Mother Diabetes Uncle Prostate cancer Grandmother (Paternal) Stroke Family/Other Colorectal cancer Breast cancer Myocardial infarction Grandfather (Maternal) Rheumatoid arthritis Denies family history of Ovarian cancer Social History Smoking Status: Former smoker Tobacco Type: Cigarettes Age Quit Using Tobacco: 65; packs per day: 0.5; Years Smoked: 24; Cigarettes Per Day: just a few per week; Second Hand Exposure: Yes; Do You Dip or Chew Tobacco: No; Hx Alcohol Use: No Hx Substance Use: No Preferred Language: Polish Communication Ability: Effective Visual Impairment: No Limitations Hearing Ability: Normal Coater Hand Required: No Beliefs That Will Affect Care: None marital status: Current Living Situation: Spouse current occupational status: retired How many Children do You have: 2 How many Children do You have Comment: live local, children and able to help with care as needed. Other Information That Helps Us Care for You: No Feels Safe at Home: Yes Safety Concerns: Feels Safe At This Time Childhood Exposure to Second-Hand Smoke: No Diet Comment: eats what he wants to , has tried to start eating "healthier" caffeine: Yes during the past year weight has: increased > 10 lbs Dental Care, Regularly: No Physical Activity Frequency: Other Physical Activity Frequency Comment: house chores Seatbelt Use: never Sunscreen Use: No Assistive Devices: Glasses Review of Systems Review of Systems: All systems reviewed & are unremarkable except as noted in HPI & below Physical Exam Physical Exam: General Examination: Constitutional: Well developed person in no acute distress. HENT: Normal exam with inspection. CV: Hearth rhythm is regular. Neck: Supple, no carotid bruits. Lungs: Non-labored and comfortable breathing. Abdomen: Soft, non-tender, non-distended. Skin: No rash or ecchymosis. Extremities: No edema or cyanosis NEUROLOGICAL EXAMINATION: Mental Status: Alert and oriented to place, person and time. Cranial Nerves: II-XII are intact. No nystagmus. Speech: Fluent. Comprehension is intact. He has baseline lisp. Funduscopy: Normal looking optic discs. Motor: 5/5 in upper extremities, 4/5 in proximal upper extremities and 4-/5 in ankle dorsiflexors without asymmetry. Tone: Normal without spasticity or rigidity. Sensory: Decreased sensation in saddle area and distal lower extremities to all sensory modalities. Coordination: No dysmetria with FTN testing. Gait: Not assessed DTRs: 2- in upper extremities, trace in knees and absent in ankles. No babinski. Musculoskeletal: Normal muscle bulk, no atrophy. Results & Data ([facility]) Vital Signs (Past 12 Hours) Vital Signs Temp Pulse Resp BP BP Pulse Ox O2 Del Method 07/01/22 18:44 36.6 C 89 18 136/74 93 Room Air 07/01/22 15:51 36.8 C 70 17 149/75 H 92 Room Air 07/01/22 11:45 36.8 C 89 18 127/71 94 Room Air Laboratory Results Laboratory Results - last 24 hr 07/01/22 07/01/22 07/01/22 05:23 05:28 05:28 WBC 6.41 RBC 3.30 L Hgb 10.0 L Hct 30.0 L MCV 90.9 MCH 30.3 MCHC 33.3 RDW Std Deviation 44.1 RDW Coeff of Radha 13.3 Plt Count 231 MPV 11.3 Immature Gran % (Auto) 0.3 Neut % (Auto) 63.3 Lymph % (Auto) 20.7 [place] % (Auto) 10.1 Eos % (Auto) 5.0 Baso % (Auto) 0.6 Neut # (Auto) 4.05 Lymph # (Auto) 1.33 [place] # (Auto) 0.65 Eos # (Auto) 0.32 Baso # (Auto) 0.04 Immature Gran # (Auto) 0.02 Sodium 135 L Potassium 4.1 Chloride 94 L Carbon Dioxide 31 Anion Gap 6.4 BUN 19 Creatinine 1.22 Est Cr Clr Drug Dosing 71.8 Est GFR ( Amer) 69.2 Est GFR (Non-Af Amer) 59.7 BUN/Creatinine Ratio 15.6 Glucose 175 H POC Glucose 182 H Lactate Calcium 8.7 Magnesium 1.9 07/01/22 07/01/22 07/01/22 05:28 07:14 11:36 WBC RBC Hgb Hct MCV MCH MCHC RDW Std Deviation RDW Coeff of Radha Plt Count MPV Immature Gran % (Auto) Neut % (Auto) Lymph % (Auto) [place] % (Auto) Eos % (Auto) Baso % (Auto) Neut # (Auto) Lymph # (Auto) [place] # (Auto) Eos # (Auto) Baso # (Auto) Immature Gran # (Auto) Sodium Potassium Chloride Carbon Dioxide Anion Gap BUN Creatinine Est Cr Clr Drug Dosing Est GFR ( Amer) Est GFR (Non-Af Amer) BUN/Creatinine Ratio Glucose POC Glucose 167 H 235 H Lactate 1.0 Calcium Magnesium 07/01/22 07/01/22 16:30 20:51 WBC RBC Hgb Hct MCV MCH MCHC RDW Std Deviation RDW Coeff of Radha Plt Count MPV Immature Gran % (Auto) Neut % (Auto) Lymph % (Auto) [place] % (Auto) Eos % (Auto) Baso % (Auto) Neut # (Auto) Lymph # (Auto) [place] # (Auto) Eos # (Auto) Baso # (Auto) Immature Gran # (Auto) Sodium Potassium Chloride Carbon Dioxide Anion Gap BUN Creatinine Est Cr Clr Drug Dosing Est GFR ( Amer) Est GFR (Non-Af Amer) BUN/Creatinine Ratio Glucose POC Glucose 215 H 218 H Lactate Calcium Magnesium Diagnostic Findings Chest X-Ray 06/26/22 22:07 XR chest 1V portable HISTORY: 71 years-old Male cp acute chest pain COMPARISON: Chest radiograph 02/15/2022 TECHNIQUE: Portable AP view of the chest FINDINGS: Cardiomediastinal and hilar silhouettes are within normal limits. Eventration of the right hemidiaphragm. Mild subsegmental left basilar atelectasis. No pneumothorax, pleural effusion, or overt pulmonary edema. Degenerative changes of the shoulders and spine. IMPRESSION: No acute process. ACT 112: Negative or not required by law. The above report was generated using voice recognition software. It may contain grammatical, syntax or spelling errors. Electronically signed by: Amador Sullivan M.D. 06/27/2022 6:33 AM Renal Ultrasound 06/27/22 02:20 ULTRASOUND KIDNEYS AND BLADDER CLINICAL HISTORY: Fever. Urinary tract infection. COMPARISON STUDY: Abdominal CT dated 02/15/2022. TECHNIQUE: Real-time, grayscale, and color flow sonography of the kidneys and bladder is performed. Images are reviewed in the transverse and longitudinal planes. FINDINGS: Kidneys: The kidneys are normal in size and echotexture. The right kidney measures 12.7 x 6.0 x 6.7 cm and the left kidney measures 12.2 x 7.3 x 7.5 cm. There is mild to moderate bilateral hydroureteronephrosis. No shadowing renal calculi are identified. There is no sonographic evidence of contour deforming renal mass lesion. No perinephric fluid is identified. Bladder: The bladder is significant distended. The wall appears thickened/trabeculated indicating a chronic outlet obstruction.. Bilateral ureteral jets were seen. IMPRESSION: 1. The bladder is significantly distended with evidence of chronic outlet obstruction. 2. There is [id number] bilateral hydroureteronephrosis, likely secondary to the degree of bladder distention. Clinical correlation will be required. ACT 112: Negative or not required by law. Electronically signed by: Morris Coburn M.D. 06/27/2022 9:59 AM Brain MRI 06/28/22 17:40 MRI OF THE BRAIN WITHOUT IV CONTRAST CLINICAL HISTORY: Speech difficulty. Headache and dizziness. COMPARISON STUDY: No priors. TECHNIQUE: MRI of the brain was performed utilizing various T1 and T2-weighted sequences in the axial, sagittal, and coronal planes. IV contrast was not administered for this examination. FINDINGS: Brain parenchyma: There is age-related involutional change noting minimal microangiopathic disease. There is no hemorrhage or mass effect. There is no restricted diffusion to suggest acute ischemia. Rodriguez-white matter differentiation is preserved. No extra-axial fluid collection is seen. The cerebellar tonsils are normal in configuration. Ventricles, sulci, and cisterns: Prominent secondary to involutional change. Pituitary and sella: Unremarkable. Intracranial vasculature: Normal flow voids are maintained at the skull base. Orbits: The bony orbits are grossly intact. Orbital contents are normal in appearance. Sinuses and mastoids: There is a left mastoid effusion. The right mastoid air cells are clear. Mucosal thickening is noted in the frontal and ethmoid sinuses. Calvarium: Unremarkable. Cervical cord: Partially visualized cervical spinal cord is normal in morphology and signal intensity. IMPRESSION: No acute intracranial abnormality. ACT 112: Negative or not required by law. Electronically signed by: Morris Coburn M.D. 06/29/2022 7:21 AM Abdomen/Pelvis CT 06/29/22 09:12 CT OF THE ABDOMEN AND PELVIS WITHOUT CONTRAST CLINICAL HISTORY: UTI,persistent fever,assess for pyelo,abscess COMPARISON STUDY: CT of the abdomen and pelvis January 26, 2022. Renal ultrasound June 27, 2022. TECHNIQUE: Axial images of the abdomen and pelvis were obtained without IV contrast. Images were reviewed in the axial, sagittal, and coronal planes. Automated exposure control was utilized for the study. A dose lowering technique was utilized adhering to the principles of ALARA. FINDINGS: There are trace bilateral pleural effusions. No pneumatosis, free air or portal venous gas is present. The gallbladder is contracted and contains a small gallstone. There is mild adjacent stranding. These findings do not suggest acute cholecystitis. The appearance is similar to prior CT. Unenhanced images of liver, spleen, adrenal glands and pancreas are unremarkable. There is moderate perinephric and periureteral stranding. There is no hydronephrosis. No urinary calculi are present. Hydroureteronephrosis on ultrasound of June 27, 2022 has resolved. No renal fluid collection is identified on this unenhanced examination. Sensitivity for detection of hydronephrosis is diminished on this unenhanced study. Bladder wall thickening is noted. This is similar to CT of February 15, 2022. No evidence for a bowel obstruction. Moderate amount stool within col on and rectum is present. IMPRESSION: 1. No urinary calculi or hydronephrosis. Resolution of bilateral hydroureteronephrosis on ultrasound of June 27, 2022. 2. Bilateral perinephric and periureteral stranding, a nonspecific finding. No renal fluid collection to suggest abscess on unenhanced exam. 3. Moderate amount stool within the colon and rectum. 4. Bladder wall thickening, likely chronic. ACT 112: Negative or not required by law. Electronically signed by: Kevin Del Angel M.D. 06/29/2022 10:[address] 07/01/22 05:38 CT OF THE HEAD WITHOUT CONTRAST CLINICAL HISTORY: eval stroke; acute slurred speech and facial droop COMPARISON STUDY: MRI of the brain June 28, 2022. CT DOSE: 1812.08 mGy.cm TECHNIQUE: Helical axial images of the head were obtained without IV contrast. Automated exposure control was utilized for the study. A dose lowering technique was utilized adhering to the principles of ALARA. FINDINGS: No acute intracranial hemorrhage, midline shift or mass effect is present. The ventricular system is unremarkable. The basal cisterns are patent. No extra-axial collections are present. There are no findings to suggest acute dural sinus thrombosis or acute territorial infarct. No significant calvarial abnormalities are present. There is minimal ethmoid sinus mucosal thickening. IMPRESSION: No acute intracranial findings. ACT 112: Negative or not required by law. Electronically signed by: Kevin Del Angel M.D. 07/01/2022 6:24 AM Head CTA 07/01/22 09:07 CT angio neck with con, CT angio head w con CLINICAL HISTORY: 71 years-old Male with TIA. Acute strokelike symptoms COMPARISON STUDY: Head CT of same day, brain MRI 06/28/2022 TECHNIQUE: Following the IV administration of 108 mL of Optiray, CT angiogram of the head and neck was performed from the aortic arch to the skull apex. Images are reviewed in the axial, sagittal, and coronal planes. 3-D MIPS images are created and assessed. IV contrast was administered without complication. All measurements were calculated based on NASCET criteria. A dose lowering technique was utilized adhering to the principles of ALARA. CT DOSE: 633.11 mGy.cm FINDINGS: Three-vessel morphology of the thoracic aortic arch. Patency of the innominate and imaged subclavian arteries. The common carotid arteries are patent. Moderate left with moderate to extensive atherosclerotic plaque of the carotid bulbs and proximal cervical segments of the internal carotid arteries results in less than 50% stenosis bilaterally. Additional atherosclerotic plaque of the cavernous, clinoid and supraclinoid segments of the internal carotid arteries resulting in less than 50% narrowing. The middle and anterior cerebral arteries appear patent. Developmentally diminutive left A1 segment. 50% luminal narrowing involves the origin of the left vertebral artery. Mild stenosis of less than 50% involves the V2 segments of the vertebral arteries at the level of C3 secondary to facet arthropathy and uncovertebral spurring. The basilar and posterior cerebral arteries appear patent. The cerebral venous sinuses appear patent. There is no abnormal intracranial enhancement. The lung apices are clear without pneumothorax. Subcentimeter upper mediastinal lymph nodes. Unremarkable soft tissues. Degenerative changes of the spine. IMPRESSION: Atherosclerotic vascular disease without aneurysm, dissection, high- grade stenosis or arterial occlusion. ACT 112: Negative or not required by law. The above report was generated using voice recognition software. It may contain grammatical, syntax or spelling errors. Electronically signed by: Amador Sullivan M.D. 07/01/2022 11:50 AM Neck CTA 07/01/22 09:07 CT angio neck with con, CT angio head w con CLINICAL HISTORY: 71 years-old Male with TIA. Acute strokelike symptoms COMPARISON STUDY: Head CT of same day, brain MRI 06/28/2022 TECHNIQUE: Following the IV administration of 108 mL of Optiray, CT angiogram of the head and neck was performed from the aortic arch to the skull apex. Images are reviewed in the axial, sagittal, and coronal planes. 3-D MIPS images are created and assessed. IV contrast was administered without complication. All measurements were calculated based on NASCET criteria. A dose lowering technique was utilized adhering to the principles of ALARA. CT DOSE: 633.11 mGy.cm FINDINGS: Three-vessel morphology of the thoracic aortic arch. Patency of the innominate and imaged subclavian arteries. The common carotid arteries are patent. Moderate left with moderate to extensive atherosclerotic plaque of the carotid bulbs and proximal cervical segments of the internal carotid arteries results in less than 50% stenosis bilaterally. Additional atherosclerotic plaque of the cavernous, clinoid and supraclinoid segments of the internal carotid arteries resulting in less than 50% narrowing. The middle and anterior cerebral arteries appear patent. Developmentally diminutive left A1 segment. 50% luminal narrowing involves the origin of the left vertebral artery. Mild stenosis of less than 50% involves the V2 segments of the vertebral arteries at the level of C3 secondary to facet arthropathy and uncovertebral spurring. The basilar and posterior cerebral arteries appear patent. The cerebral venous sinuses appear patent. There is no abnormal intracranial enhancement. The lung apices are clear without pneumothorax. Subcentimeter upper mediastinal lymph nodes. Unremarkable soft tissues. Degenerative changes of the spine.
[2022-07-02] MEDS: LEVOTHYROXINE SODIUM 137 MCG TABLET PO SCH (05:44)
--- NOTE | 2022-07-02 06:25 | XCELERA ---
[id number]
[2022-07-02] MEDS: GABAPENTIN 300 MG CAP PO SCH ×3 (07:50→20:45)
[2022-07-02] MEDS: SENNA 8.6 MG TAB PO SCH ×2 (07:51→20:45)
[2022-07-02] MEDS: POLYETHYLENE (MIRALAX) 17 GM PACK PO SCH (07:51)
[2022-07-02] MEDS: ASPIRIN 81 MG ECTAB PO SCH (07:51)
[2022-07-02] MEDS: allopurinoL 300 MG TAB PO SCH (07:51)
[2022-07-02] MEDS: CLOPIDOGREL BISULFATE 75 MG TAB PO SCH (07:52)
[2022-07-02] MEDS: METOPROLOL SUCC 50MG EXT REL TAB PO SCH (07:52)
[2022-07-02] MEDS: ATORVASTATIN 40 MG TAB PO SCH (07:52)
[2022-07-02] MEDS: CYANOCOBALAMIN 1000 MCG/ML VIAL IM SCH (07:53)
[2022-07-02] MEDS: HEPARIN SOD 5,000 UNIT/0.5 ML VIAL SQ SCH ×2 (07:54→20:45)
[2022-07-02 07:59] LABS: Albumin Level 3.5 gm/dl (3.4-5.0); BUN Creatinine Ratio 13.9 (10-20); Bilirubin,Total 0.4 mg/dl (0.2-1.0); Calcium 9.1 mg/dl (8.5-10.1); Chol HDL Ratio 6.8 (0-5); Creatinine Clr Calc Pharmacy 75.8 ml/min; Est GFR (African American) 74.3 ml/min; Est GFR (Non-African American) 64.1 ml/min; Globulin 3.4 gm/dl (2.5-4.0); Potassium 4.3 mmol/L (3.5-5.1); Total Protein 6.9 gm/dl (6.0-8.3)
[2022-07-02] MEDS: INSULIN ASPART PER UNIT SC SCH ×4 (08:32→20:46)
[2022-07-02] MEDS: LANTUS PER UNIT CHARGE SQ SCH ×2 (08:33→20:46)
[2022-07-02 09:07] LABS: Estimated Average Glucose 154 mg/dl
[2022-07-02] MEDS: IRON SUCROSE 300 MG in SODIUM CHLORIDE 0.9% 250 ML IV SCH (11:09)
--- NOTE | 2022-07-02 16:33 | Hospitalist Progress Note ---
Date of Service July 02, 2022 Assessment & Plan (1) Sepsis: Plan: 71 yo male with history of cauda equina syndrome secondary to large disc herniation s/p L4-L5 decompression and discectomy, neurogenic bladder requiring self-catheterization 4-5 times daily, recurrent UTI presenting with sepsis - (SIRS 2/4 on arrival). Low blood pressure on arrival responsive to 1L NSS. Elevated procalcitonin. Most likely urinary source. UA is suggestive of infection. Nurse reports cloudy, purulent appearing urine. Prior cultures with Klebsiella. Renal US no abscess, has mod hydro bilat from neurogenic bladder and possibly enlarged prostate Had persistent fevers despite being on antibiotics x48 hours initially-CT abdomen/pelvis checked-showed bilateral perinephric stranding, no abscess. Seems consistent with pyelonephritis No further fever since 06/28, improving. Leukocytosis resolved Urine culture growing E. coli, with multiple resistance but is sensitive to both the cefepime he was on initially and ceftriaxone on currently UTI with sepsis possibly due to intermittent straight catheterization-resolved Sepsis resolved following IVF and antibiotics. BCxs remain NGTD With mild FRANCIE now improving initial IV fluids given -continue ceftriaxone, eventually convert to po cefdinir on discharge for total 14 days -Tylenol PRN pain or fever -Zofran PRN nausea -Bladder scan as needed -Straight catheterization q 6 hours and PRN (2) UTI (urinary tract infection): Plan: source of sepsis as above (3) B12 deficiency anemia: Plan: severe, with associated polyneuropathy giving IM B12 while here and then convert to B12 1000 mcg po daily check levels as outpt in 2 months (4) Iron deficiency anemia: Plan: iron def anemia, transferrin sat low at 11%, ferritin elevated due to acute phase reactant with ongoing infection Received Venofer 300 mg IV x 3 doses hgb 9-10 he has never had EGD/colonoscopy-recommend this as outpt, discussed with patient and (5) Diabetes: Plan: Blood sugar controlled, Patient is on oral agents, Glimepiride and Metformin as outpatient. Last TdtM5Y=1.3 on 12/07/21 and A1c now up to 7.0% but still well controlled -Hold oral agents continues with persistent hyperglycemia here likely due to stress of infection -increase Lantus again to 10u BID -ISS-tighten down again today for improved control-change correction factor to 25 and carb ratio down to 12 -Goal blood sugar 110 - 140 (6) Polyneuropathy: Plan: proven on recent EMG/NCS, specifically noted to NOT be related to lumbar radiculopathy -checked B12 given anemia--> severely low B12 replace with B12 as above follow levels as outpt in 1-2 months assess for improvement in neuropathy and sensory deficits over times with replacement -continue gabapentin for symptoms (7) FRANCIE (acute kidney injury): Plan: compensation expert up to 1.7 on admission and now improved to 1.15, likely due to ATN from sepsis continue to hold lisinopril but can likely start tomorrow received fluids on admission has peripheral edema which is now resolved with HANK martínez Having increased urine output on 07/03 likely due to post ATN diuresis follow BMP in the morning renally dose meds (8) Dysarthria: Plan: noticed this for the last few days prior to admission since he has been sick-now improved, has chronic mild lisp this has happened to him in the past when acutely ill C/o some hoarseness occasionally but none noted here Nonfocal neuro exam otherwise checked brain MRI -negative for CVA consult Speech therapy appreciated--> reports definite dysarthria, recommends ENT and Speech Tx evals as outpt given h/o thyroid issues previously (required radioactive iodine ablation in 1976) TSH here normal, no thyroid nodules palpable -will refer to ENT and Speech as outpt Had stroke alert called early AM 10/9 for slurred speech, left facial droop possibly--> no TNK given, symptoms resolved except he has had the slurred speech which reports always gets worse when he is sick with infection. Doubt TIA or CVA CT angiogram head/neck without critical stenoses or large vessel occlusion Echocardiogram without thrombus Telemetry without A. fib or a flutter No need to repeat MRI brain as symptoms have improved Lipid panel acceptable except elevated triglycerides due to elevated blood sugars. LDL and total cholesterol acceptable, is on high intensity statin Hemoglobin A1c 7.0% Appreciate neurology consultation - recommend 30 day cardiac event monitor after discharge -already on DAPT, high intensity statin for severe CAD (9) CAD, multiple vessel: Plan: Patient with history of multivessel CAD. Patient had cardiac catheterization performed on 11/01/21 at [facility] which revealed multivessel disease. He had high risk PCI of LM/LAD/CX and orbital atherectomy. Patient completed Cardiac rehabilitation He remains on uninterrupted DAPT with ASA and Plavix x 12 months at least Presently with no chest discomfort -Continue ASA 81mg po daily, Plavix 75mg po daily, Atorvastatin 80mg po daily, Metoprolol 50mg po daily -Hold Lisinopril for FRANCIE (10) Dyslipidemia (high LDL; low HDL): Plan: Chronic. Patient on high intensity statin. Lipids as above -Continue Atorvastatin 80mg po daily (11) Hypertension: Plan: Patient with low blood pressure upon arrival in setting of sepsis secondary to urinary source. BP improved after 1L NSS -Continue metoprolol -continue to hold Lisinopril for now -Monitor BP (12) Chronic systolic CHF (congestive heart failure): Plan: Appears compensated. He does have some dependent bilateral LE edema which is now improved with HANK hose. No cough, SOB. EF has now improved and is normal after revascularization earlier this year -Continue Metoprolol -Monitor fluid status No need for diuretics (13) Acid reflux: Plan: Chronic. Stable on medications -Continue Pepcid 40mg po qHS (14) Hypothyroidism: Plan: Chronic. Stable. TSH here normal, FT3 and FT4 normal -Continue Synthroid 137mcg po daily given dysphagia, f/u with ENT as outpt, consider outpt thyroid US. No thyroid nodules on exam (15) Gout: Plan: Chronic. Well controlled with medication -Continue Allopurinol 300mg po daily (16) Cauda equina syndrome: Plan: History of. s/p decompression. Patient with persistent symptoms, neurogenic bladder and bowel. He is able to ambulate with a walker. Performs self catheterization and takes stool softeners for regular BMs. -Continue Gabapentin 300mg po TID -Bladder ultrasound as needed -Straight catheterization q 6 hours and PRN -Fall precautions -PT/OT evaluations appreciated -Continue Senokot 1 tab twice daily, daily MiraLAX, and bisacodyl suppositories DE-we will make scheduled daily rather than as needed Plan Ppx - heparin 5000 units q12h, HANK hose Code - Full Dispo -continued stay but continues to improve, did not quite feel ready for discharge yet PT recommends home with home health, likely discharge to home tomorrow Admission and Anticipated Discharge Date Admission Date: June 28, 2022 Subjective Patient reports significant volume of urine output with his self catheterizing today. Otherwise, he does feel a little more fatigued today and did not move his bowels and is feeling very constipated. He did not work with physical therapy today. He also had some more sweats overnight but no documented fevers. Telemetry with normal sinus rhythm with rates in the 70s Review of Systems Review of Systems: All systems reviewed & are unremarkable except as noted in HPI & below Physical Exam Constitutional: WD/WN, vitals as above Eyes: + anicteric sclerae ENMT: external ear and nose normal, oropharynx normal Neck: trachea midline, no thyromegaly Respiratory: normal respiratory effort, lungs clear to auscultation Cardiovascular: Rate/Rhythm: regular rate and regular rhythm Heart Sounds: no murmur Extremities: no edema (with HANK hose in place, edema resolved) Chest (Breasts): Chest: normal inspection of chest Gastrointestinal (Abdomen): normal bowel sounds, soft, nontender, no hepatosplenomegaly Musculoskeletal: Extremities: extremities normal to inspection; no cyanosis and no clubbing Skin: no rashes, warm and dry Neurologic: CN's II-XI intact bilaterally, moves all extremities, + focal motor deficit (4/5 strength throughout lower extremities) and awake Speech / Cognition: + abnormal speech (with slight impediment,improved from previous) Psychiatric: A+Ox3, euthymic affect Results & Data Results & Data ([facility]) Vital Signs (Past 12 Hours) Vital Signs Temp Pulse Pulse Resp BP BP Pulse Ox 07/02/22 15:52 36.9 C 77 18 131/82 91 07/02/22 15:12 79 07/02/22 12:39 36.8 C 77 18 136/84 92 07/02/22 07:52 37 C 80 131/80 91 07/02/22 07:44 80 O2 Del Method 07/02/22 15:52 Room Air 07/02/22 15:12 07/02/22 12:39 Room Air 07/02/22 07:52 Room Air 07/02/22 07:44 Laboratory Results 07/02/22 07/02/22 07/02/22 Range/Units 20:14 16:38 11:55 Sodium (136-145) mmol/L Potassium (3.5-5.1) mmol/L Chloride (98-107) mmol/L Carbon Dioxide (21-32) mmol/L Anion Gap (3-11) BUN (6-23) mg/dl Creatinine (0.6-1.4) mg/dl Est Cr Clr Drug Dosing ml/min Est GFR ( Amer) ml/min Est GFR (Non-Af Amer) ml/min BUN/Creatinine Ratio (10-20) Glucose (70-99(Fasting)) mg/dl POC Glucose 262 H 231 H 247 H (70-99) mg/dl Estimat Average Glucose mg/dl Hemoglobin A1c (4.5-5.6) % Calcium (8.5-10.1) mg/dl Total Bilirubin (0.2-1.0) mg/dl AST (13-39) U/L ALT (7-52) U/L Alkaline Phosphatase (34-104) U/L Total Protein (6.0-8.3) gm/dl Albumin (3.4-5.0) gm/dl Globulin (2.5-4.0) gm/dl Albumin/Globulin Ratio (0.9-2) Triglycerides (0-150) mg/dl Cholesterol (0-200) mg/dl LDL Cholesterol, Calc mg/dl VLDL Cholesterol, Calc (0-30) mg/dl HDL Cholesterol mg/dl Cholesterol/HDL Ratio (0-5) 07/02/22 07/02/22 07/02/22 Range/Units 07:42 06:42 06:42 Sodium 137 (136-145) mmol/L Potassium 4.3 (3.5-5.1) mmol/L Chloride 98 (98-107) mmol/L Carbon Dioxide 31 (21-32) mmol/L Anion Gap 8 (3-11) BUN 16 (6-23) mg/dl Creatinine 1.15 (0.6-1.4) mg/dl Est Cr Clr Drug Dosing 75.8 ml/min Est GFR ( Amer) 74.3 ml/min Est GFR (Non-Af Amer) 64.1 ml/min BUN/Creatinine Ratio 13.9 (10-20) Glucose 179 H (70-99(Fasting)) mg/dl POC Glucose 183 H (70-99) mg/dl Estimat Average Glucose 154 mg/dl Hemoglobin A1c 7.0 H (4.5-5.6) % Calcium 9.1 (8.5-10.1) mg/dl Total Bilirubin 0.4 (0.2-1.0) mg/dl AST 18 (13-39) U/L ALT 46 (7-52) U/L Alkaline Phosphatase 99 (34-104) U/L Total Protein 6.9 (6.0-8.3) gm/dl Albumin 3.5 (3.4-5.0) gm/dl Globulin 3.4 (2.5-4.0) gm/dl Albumin/Globulin Ratio 1.0 (0.9-2) Triglycerides 222 H (0-150) mg/dl Cholesterol 116 (0-200) mg/dl LDL Cholesterol, Calc 55 mg/dl VLDL Cholesterol, Calc 44 H (0-30) mg/dl HDL Cholesterol 17 mg/dl Cholesterol/HDL Ratio 6.8 H (0-5) PG Care Time/CCT Total # of Minutes Spent Total Time Spent with Patient: Total time spent is greater than 50% in coordination of care (as documented) at patient's floor/unit and/or counseling patient: Coding Level of Care Code 89219 Subseq Hosp Care Lvl 2 Diagnoses Sepsis A41.9 UTI (urinary tract infection) N39.0 B12 deficiency anemia D51.9 Iron deficiency anemia D50.9 Diabetes E11.9 Polyneuropathy G62.9 FRANCIE (acute kidney injury) N17.9 Dysarthria R47.1 CAD, multiple vessel I25.10 Dyslipidemia (high LDL; low HDL) E78.5 Hypertension I10 Chronic systolic CHF (congestive heart failure) I50.22 Acid reflux K21.9 Hypothyroidism E03.9 Hypothyroidism type: unspecified Gout M10.9 Chronicity: chronic Gout etiology: unspecified cause Gout site: unspecified site Cauda equina syndrome G83.4 (1) Gout Chronicity: chronic Gout etiology: unspecified cause Gout site: unspecified site (2) Hypothyroidism Hypothyroidism type: unspecified Qualified Code(s): E03.9 - Hypothyroidism, unspecified
[2022-07-02] MEDS: cefTRIAXone SODIUM 2,000 MG in DEXTROSE 5% 50 ML IV SCH (20:44)
[2022-07-02] MEDS: FAMOTIDINE 40 MG TABLET PO SCH (20:45)
[2022-07-02] MEDS: TAMSULOSIN HCL 0.4 MG CAP PO SCH (20:46)
[2022-07-03] MEDS: LEVOTHYROXINE SODIUM 137 MCG TABLET PO SCH (06:13)
[2022-07-03] MEDS: INSULIN ASPART PER UNIT SC SCH ×2 (08:23→12:26)
[2022-07-03] MEDS: METOPROLOL SUCC 50MG EXT REL TAB PO SCH (08:27)
[2022-07-03] MEDS: POLYETHYLENE (MIRALAX) 17 GM PACK PO SCH (08:28)
[2022-07-03] MEDS: GABAPENTIN 300 MG CAP PO SCH ×2 (08:28→13:56)
[2022-07-03] MEDS: CYANOCOBALAMIN 1000 MCG/ML VIAL IM SCH (08:28)
[2022-07-03] MEDS: CLOPIDOGREL BISULFATE 75 MG TAB PO SCH (08:29)
[2022-07-03] MEDS: ATORVASTATIN 40 MG TAB PO SCH (08:29)
[2022-07-03] MEDS: ASPIRIN 81 MG ECTAB PO SCH (08:29)
[2022-07-03] MEDS: allopurinoL 300 MG TAB PO SCH (08:29)
[2022-07-03] MEDS: SENNA 8.6 MG TAB PO SCH (08:29)
[2022-07-03] MEDS: HEPARIN SOD 5,000 UNIT/0.5 ML VIAL SQ SCH (08:29)
[2022-07-03] MEDS ORDERED: CEFDINIR 300 MG CAP PO SCH (09:00)
[2022-07-03] MEDS ORDERED: lisinopril 5 MG TAB PO SCH (09:00)
[2022-07-03] MEDS ORDERED: bisacodyL 10 MG SUPP PR SCH (09:00)
[2022-07-03] MEDS ORDERED: LANTUS PER UNIT CHARGE SQ SCH (09:00)
[2022-07-03 10:05] LABS: Hemoglobin 11.3 g/dl (14.0-18.0); Mean Corpuscular Hgb Conc 33.2 g/dL (32.0-36.0); Mean Corpuscular Volume 90.2 fL (80.0-100.0); Platelet Count 354 K/uL (130-400); RDW Coefficient of Variation 13.5 % (11.5-14.5); RDW Standard Deviation 44.5 fL (36.4-46.3); Red Blood Count 3.77 M/uL (4.63-6.08); White Blood Count 9.06 K/ul (4.8-10.8)
[2022-07-03 10:32] LABS: BUN Creatinine Ratio 14.5 (10-20); Calcium 9.1 mg/dl (8.5-10.1); Est GFR (African American) 67.8 ml/min; Est GFR (Non-African American) 58.5 ml/min; Magnesium 2.1 mg/dl (1.7-2.4); Potassium 4.2 mmol/L (3.5-5.1)
[2022-07-03] MEDS ORDERED: GLIMEPIRIDE 2 MG TAB PO ONE (14:54)
[2022-07-03] MEDS ORDERED: metFORMIN HCL 500 MG TAB PO SCH (17:00)
--- NOTE | 2022-07-03 17:24 | Discharge Summary ---
Date of Service date of admission - June 27, 2022 date of discharge - July 03, 2022 Admission HPI Per Admitting Provider Frederic Camejo is a pleasant 71yo male with history of cauda equina syndrome secondary to large disc herniation s/p L4-L5 decompression in December 2020. Patient with pe rsistent neurogenic bladder requiring self-catheterization 4-5 times daily, also experiences occasional shock-like pain from his groin to his feet as well as persistent saddle anesthesia, constipation and incontinence. He [place]rology [place] [facility] [place] Patient with history of frequent UTIs - prior urine cultures positive for fairly sensitive strain of Klebsiella. He has seen Urology in the past. Patient presents with one week of cloudy/purulent urine as well as bladder spasms, lower abdominal discomfort and shock-like pain from lower abdomen to feet. This AM he had headache, dizziness and fever to 103 which prompted him to come to the ER. Also with complaints of nausea, abdominal discomfort, constipation. Symptoms are similar to prior UTIs. Upon arrival to the ER patient with elevated temperature of 37.9, FQ=110, blood pressure 83/53. ER Course: NSS x 1L, Cefepime 2gm Principal Diagnosis Sepsis 2nd to Catheter-associated UTI Discharge Exam gen - NAD, pleasant face - no droop mouth - MMM neck - no JVD heart - RRR, s1 s2, no murmur lungs - CTA b/l abd - mildly distended but NT, BS+, no mass ext - trace edema b/l, pulses 2+ b/l neuro - strength 5/5 x 4 exts; no facial droop; mild dysarthria/slurry type speech Discharge Data Allergies Allergy/AdvReac Type Severity Reaction Status Date / Time bee venom protein (honey bee) Allergy Severe EXTREME Verified 07/05/22 11:38 SWELLING--STUNG ON HAND, ARM SWELLED TO SHOULDER. Penicillins Allergy Intermediate HIGH Verified 07/05/22 11:38 FEVER, RASH (NOTED ALLERGIC TO "ANY-CILLIN" Consultations Neurology PT, OT, Speech Therapy Procedures Performed Echocardiogram - EF 60-65%; no regional wall motion abnormalities; mild LVH; mild MR; no source of thrombus. In comparison to 10/2021 echo - improved EF noted. Ordered Studies Chest X-Ray 06/26/22 22:07 XR chest 1V portable HISTORY: 71 years-old Male cp acute chest pain COMPARISON: Chest radiograph 02/15/2022 TECHNIQUE: Portable AP view of the chest FINDINGS: Cardiomediastinal and hilar silhouettes are within normal limits. Eventration of the right hemidiaphragm. Mild subsegmental left basilar atelectasis. No pneumothorax, pleural effusion, or overt pulmonary edema. Degenerative changes of the shoulders and spine. IMPRESSION: No acute process. ACT 112: Negative or not required by law. The above report was generated using voice recognition software. It may contain grammatical, syntax or spelling errors. Electronically signed by: Amador Sullivan M.D. 06/27/2022 6:33 AM Renal Ultrasound 06/27/22 02:20 ULTRASOUND KIDNEYS AND BLADDER CLINICAL HISTORY: Fever. Urinary tract infection. COMPARISON STUDY: Abdominal CT dated 02/15/2022. TECHNIQUE: Real-time, grayscale, and color flow sonography of the kidneys and bladder is performed. Images are reviewed in the transverse and longitudinal planes. FINDINGS: Kidneys: The kidneys are normal in size and echotexture. The right kidney measures 12.7 x 6.0 x 6.7 cm and the left kidney measures 12.2 x 7.3 x 7.5 cm. There is mild to moderate bilateral hydroureteronephrosis. No shadowing renal calculi are identified. There is no sonographic evidence of contour deforming renal mass lesion. No perinephric fluid is identified. Bladder: The bladder is significant distended. The wall appears thic kened/trabeculated indicating a chronic outlet obstruction.. Bilateral ureteral jets were seen. IMPRESSION: 1. The bladder is significantly distended with evidence of chronic outlet obstruction. 2. There is eazj-ri-vfgiofom bilateral hydroureteronephrosis, likely secondary to the degree of bladder distention. Clinical correlation will be required. ACT 112: Negative or not required by law. Electronically signed by: Morris Coburn M.D. 06/27/2022 9:59 AM Brain MRI 06/28/22 17:40 MRI OF THE BRAIN WITHOUT IV CONTRAST CLINICAL HISTORY: Speech difficulty. Headache and dizziness. COMPARISON STUDY: No priors. TECHNIQUE: MRI of the brain was performed utilizing various T1 and T2-weighted sequences in the axial, sagittal, and coronal planes. IV contrast was not administered for this examination. FINDINGS: Brain parenchyma: There is age-related involutional change noting minimal microangiopathic disease. There is no hemorrhage or mass effect. There is no restricted diffusion to suggest acute ischemia. Rodriguez-white matter differentiation is preserved. No extra-axial fluid collection is seen. The cerebellar tonsils are normal in configuration. Ventricles, sulci, and cisterns: Prominent secondary to involutional change. Pituitary and sella: Unremarkable. Intracranial vasculature: Normal flow voids are maintained at the skull base. Orbits: The bony orbits are grossly intact. Orbital contents are normal in appearance. Sinuses and mastoids: There is a left mastoid effusion. The right mastoid air cells are clear. Mucosal thickening is noted in the frontal and ethmoid sinuses. Calvarium: Unremarkable. Cervical cord: Partially visualized cervical spinal cord is normal in morphology and signal intensity. IMPRESSION: No acute intracranial abnormality. ACT 112: Negative or not required by law. Electronically signed by: Morris Coburn M.D. 06/29/2022 7:21 AM Abdomen/Pelvis CT 06/29/22 09:12 CT OF THE ABDOMEN AND PELVIS WITHOUT CONTRAST CLINICAL HISTORY: UTI,persistent fever,assess for pyelo,abscess COMPARISON STUDY: CT of the abdomen and pelvis January 26, 2022. Renal ultrasound June 27, 2022. TECHNIQUE: Axial images of the abdomen and pelvis were obtained without IV contrast. Images were reviewed in the axial, sagittal, and coronal planes. Automated exposure control was utilized for the study. A dose lowering technique was utilized adhering to the principles of ALARA. FINDINGS: There are trace bilateral pleural effusions. No pneumatosis, free air or portal venous gas is present. The gallbladder is contracted and contains a small gallstone. There is mild adjacent stranding. These findings do not suggest acute cholecystitis. The appearance is similar to prior CT. Unenhanced images of liver, spleen, adrenal glands and pancreas are unremarkable. There is moderate perinephric and periureteral stranding. There is no hydronephrosis. No urinary calculi are present. Hydroureteronephrosis on ultrasound of June 27, 2022 has resolved. No renal fluid collection is identified on this unenhanced examination. Sensitivity for detection of hydronephrosis is diminished on this unenhanced study. Bladder wall thickening is noted. This is similar to CT of February 15, 2022. No evidence for a bowel obstruction. Moderate amount stool within colon and rectum is present. IMPRESSION: 1. No urinary calculi or hydronephrosis. Resolution of bilateral hydroureteronephrosis on ultrasound of June 27, 2022. 2. Bilateral perinephric and periureteral stranding, a nonspecific finding. No renal fluid collection to suggest abscess on unenhanced exam. 3. Moderate amount stool within the colon and rectum. 4. Bladder wall thickening, likely chronic. ACT 112: Negative or not required by law. Electronically signed by: Kevin Del Angel M.D. 06/29/2022 10:[address] 07/01/22 05:38 CT OF THE HEAD WITHOUT CONTRAST CLINICAL HISTORY: eval stroke; acute slurred speech and facial droop COMPARISON STUDY: MRI of the brain June 28, 2022. CT DOSE: 1812.08 mGy.cm TECHNIQUE: Helical axial images of the head were obtained without IV contrast. Automated exposure control was utilized for the study. A dose lowering technique was utilized adhering to the principles of ALARA. FINDINGS: No acute intracranial hemorrhage, midline shift or mass effect is present. The ventricular system is unremarkable. The basal cisterns are patent. No extra-axial collections are present. There are no findings to suggest acute d ural sinus thrombosis or acute territorial infarct. No significant calvarial abnormalities are present. There is minimal ethmoid sinus mucosal thickening. IMPRESSION: No acute intracranial findings. ACT 112: Negative or not required by law. Electronically signed by: Kevin Del Angel M.D. 07/01/2022 6:24 AM Head CTA 07/01/22 09:07 CT angio neck with con, CT angio head w con CLINICAL HISTORY: 71 years-old Male with TIA. Acute strokelike symptoms COMPARISON STUDY: Head CT of same day, brain MRI 06/28/2022 TECHNIQUE: Following the IV administration of 108 mL of Optiray, CT angiogram of the head and neck was performed from the aortic arch to the skull apex. Images are reviewed in the axial, sagittal, and coronal planes. 3-D MIPS images are created and assessed. IV contrast was administered without complication. All measurements were calculated based on NASCET criteria. A dose lowering technique was utilized adhering to the principles of ALARA. CT DOSE: 633.11 mGy.cm FINDINGS: Three-vessel morphology of the thoracic aortic arch. Patency of the innominate and imaged subclavian arteries. The common carotid arteries are patent. Moderate left with moderate to extensive atherosclerotic plaque of the carotid bulbs and proximal cervical segments of the internal carotid arteries results in less than 50% stenosis bilaterally. Additional atherosclerotic plaque of the cavernous, clinoid and supraclinoid segments of the internal carotid arteries resulting in less than 50% narrowing. The middle and anterior cerebral arteries appear patent. Developmentally diminutive left A1 segment. 50% luminal narrowing involves the origin of the left vertebral artery. Mild stenosis of less than 50% involves the V2 segments of the vertebral arteries at the level of C3 secondary to facet arthropathy and uncovertebral spurring. The basilar and posterior cerebral arteries appear patent. The cerebral venous sinuses appear patent. There is no abnormal intracranial enhancement. The lung apices are clear without pneumothorax. Subcentimeter upper mediastinal lymph nodes. Unremarkable soft tissues. Degenerative changes of the spine. IMPRESSION: Atherosclerotic vascular disease without aneurysm, dissection, high- grade stenosis or arterial occlusion. ACT 112: Negative or not required by law. The above report was generated using voice recognition software. It may contain grammatical, syntax or spelling errors. Electronically signed by: Amador Sullivan M.D. 07/01/2022 11:50 AM Neck CTA 07/01/22 09:07 CT angio neck with con, CT angio head w con CLINICAL HISTORY: 71 years-old Male with TIA. Acute strokelike symptoms COMPARISON STUDY: Head CT of same day, brain MRI 06/28/2022 TECHNIQUE: Following the IV administration of 108 mL of Optiray, CT angiogram of the head and neck was performed from the aortic arch to the skull apex. Images are reviewed in the axial, sagittal, and coronal planes. 3-D MIPS images are created and assessed. IV contrast was administered without complication. All measurements were calculated based on NASCET criteria. A dose lowering technique was utilized adhering to the principles of ALARA. CT DOSE: 633.11 mGy.cm FINDINGS: Three-vessel morphology of the thoracic aortic arch. Patency of the innominate and imaged subclavian arteries. The common carotid arteries are patent. Moderate left with moderate to extensive atherosclerotic plaque of the carotid bulbs and proximal cervical segments of the internal carotid arteries results in less than 50% stenosis bilaterally. Additional atherosclerotic plaque of the cavernous, clinoid and supraclinoid segments of the internal carotid arteries resulting in less than 50% narrowing. The middle and anterior cerebral arteries appear patent. Developmentally diminutive left A1 segment. 50% luminal narrowing involves the origin of the left vertebral artery. Mild stenosis of less than 50% involves the V2 segments of the vertebral arteries at the level of C3 secondary to facet arthropathy and uncovertebral spurring. The basilar and posterior cerebral arteries appear patent. The cerebral venous sinuses appear patent. There is no abnormal intracranial enhancement. The lung apices are clear without pneumothorax. Subcentimeter upper mediastinal lymph nodes. Unremarkable soft tissues. Degenerative changes of the spine. IMPRESSION: Atherosclerotic vascular disease without aneurysm, dissection, high- grade stenosis or arterial occlusion. ACT 112: Negative or not required by law. The above report was generated using voice recognition software. It may contain grammatical, syntax or spelling errors. Electronically signed by: Amador Sullivan M.D. 07/01/2022 11:50 AM Hospital Course (1) Sepsis: UTI with sepsis due to intermittent straight catheterization. Urine culture with e.coli, MDR, but sensitive to cefepime & ceftriaxone. Sepsis improved with IV antibiotic therapy. Blood cultures remained negative while here. Last documented fever was 10/6. Leukocytosis resolved. Received IV antibiotics for about 6-7 days while hospitalized, and will transition to PO cefdinir 300mg BID x 7 additional days at home. (2) UTI (urinary tract infection): source of sepsis catheter-associated UTI pathogen - multi-drug resistant e.coli, but sensitive to all cephalosporins received IV cefepime initially, then IV rocephin, then PO cefdinir to complete his antibiotic course total Rx will be 14 days of IV/PO therapy to cover for the possibility of pyelonephritis of note - PSA level was 0.25 making acute prostatitis highly unlikely (3) B12 deficiency anemia: severe - vitamin B12 level was 139 may be contributing to polyneuropathy giving IM B12 while here and then converted to B12 1000 mcg po daily check levels as outpatient in 2 months likely to need about a year of treatment discharge hemoglobin level was 11 (4) Iron deficiency anemia: iron def anemia with transferrin sat of 11% ferritin was elevated due to acute phase reactant from infection Received Venofer 300 mg IV x 3 doses while he has never had EGD/colonoscopy - recommend this as outpatient - discussed with patient and (5) Diabetes: Resume Glimepiride and Metformin at discharge. LtmT5S=2.3 on 12/07/21 and A1c this admission 7.0% --l well controlled. Managed with basal-bolus insulin while here - both discontinued at discharge. (6) Polyneuropathy: proven on recent EMG/NCS, specifically noted to NOT be related to lumbar radiculopathy. checked B12 given his anemia and level was quite low at 139. replaced parenterally while here and transitioned to PO b12 1000mcg daily at discharge. this may be contributing to his neuropathy. continue gabapentin for symptoms (300mg TID). (7) FRANCIE (acute kidney injury): Peak Creatinine 1.7 on admission. Improved to 1.1/1.2 by discharge. likely due to ATN from sepsis. (8) Dysarthria: Early AM of 07/01/22 he had a stroke alert called due to slurred speech and possible left facial droop. No lytic therapy given. Symptoms largely resolved. reported that she noticed the dysarthria for a few days prior to admission, mainly about the time he was becoming ill. He does have a chronic, mild lisp / slurry type speech. He has had dysarthria in the past with prior episodes of illness. MRI brain without acute or chronic CVA CT angiogram head/neck without critical stenoses or large vessel occlusion Echocardiogram without thrombus Telemetry without A. fib or a flutter Lipid panel acceptable except elevated triglycerides (222). LDL = 55. He had already been taking lipitor 80mg daily prior to this hospital stay. Neurology consult completed - asa & clopidogrel along with lipitor advised for secondary stroke prevention in the event this was a TIA event (TIA was uncertain, however). Of note - Speech therapy was consulted -- they advised outpatient ENT evaluation along with Speech Therapy for his dysarthria. Speech advised the ENT eval due to intermittent hoarse voice noted by the patient and his spouse. Finally, he will complete a 30 day cardiac event monitor after discharge to ensure no PAF as a cause of any TIA event. This will be arranged for the patient via [facility] [place]. 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 Patient had cardiac [place] [facility] [place] multivessel disease. He had high risk PCI of LM/LAD/CX and orbital atherectomy. Patient completed Cardiac rehabilitation at that time. He remains on uninterrupted DAPT with ASA and Plavix x 12 months. In addition to DAPT he will continue Atorvastatin 80mg po daily, lisinopril 5mg daily, and Metoprolol succinate 50mg daily. (10) Dyslipidemia (high LDL; low HDL): Chronic. Patient on high intensity statin. Lipids as noted above. Continue Atorvastatin 80mg daily. (11) Hypertension: Patient with low blood pressure upon arrival in setting of sepsis secondary to urinary source. BPs were normal thereafter. Continue BB and GRIS. (12) Chronic systolic CHF (congestive heart failure): Previously had low EF of 35-45% due to ischemic cardiomyopathy. EF has improved s/p revascularization at [place] in 10/2021. EF now 60-65%. He was compensated throughout the stay. Continue Metoprolol and GRIS. He is not on chronic diuretic therapy. (13) Acid reflux: Continue Pepcid 40mg HS. (14) Hypothyroidism: TSH and FT3/FT4 normal Continue Synthroid 137mcg po daily Had radioactive iodine ablation procedure in the remote past (15) Gout: Continue Allopurinol 300mg po daily No flares while here (16) Cauda equina syndrome: History of -- secondary to large disc herniation s/p L4-L5 decompression and discectomy. He has resulting neurogenic bladder and bowel. Fortunately he is able to ambulate with a walker. Performs intermittent self catheterization multiple times each day and takes stool softeners for regular BMs. Abdominal distension is likely from neurogenic bowel and resulting gaseous distension. Plan patient is returning home with home health services Home Health Attestation I certify that this patient is under my care and that I, or a physicians lead recreation assistant working with me, had a face to-face encounter that meets the home health [id number]-[id number] encounter requirements with this patient. The encounter with the patient was in whole, or in part, for the following medical condition, which is the primary reason for home health care (list medical condition): I certify that, based on my findings, the following services are medically necessary home health services: My clinical findings support the need for the above services because: Further, I certify that my clinical findings support that this patient is homebound (i.e. absences from home require considerable and taxing effort and are for medical reasons or latter-day services or infrequently or of short duration when for other reasons) because: Certification for Home Health Services: Based on the above findings, I certify that this patient is confined to the home and needs intermittent residential care, physical therapy and/or speech therapy or continues to need occupational therapy. The patient is under my care, and I have initiated the establishment of the plan of care. This patient will be followed by a physician who will periodically review the plan of care. Total Time Total Time Spent Total Time Spent (In Minutes): 50 Discharge Plan Discharge Items Patient Disposition: Home - Home Health Services Reason For Visit: SEPSIS, UTI Discharge Diagnosis: 1. Sepsis 2. Catheter-associated Urinary tract infection (UTI) 3. Vitamin B12 deficiency 4. Modestly slurred speech (known as "dysarthria") 5. Neurogenic bladder with need for self-cathing at home 6. Constipation / probable neurogenic bowel 7. Type 2 diabetes 8. Iron deficiency 9. Possible "TIA" (transient ischemic attack) with negative MRI brain for stroke (see handout) Condition on Discharge: Good Activity: As commented below Lifting: Gradually increase as tolerated Bathing: No limitations Exercise/Sports: Gradually increase as tolerated Non-emergency contact: Primary Care Provider and Specialist Call non-emergency contact if: you have any medication questions, your symptoms worsen and you have a fever Follow-up/Referrals: Liz Kirby DO [Primary Care Provider] - 07/11/22 10:20 am () Pam Milton MD [Physician] - 09/05/22 3:30 pm Diet: Carb Consistent or DM2 and Heart Healthy Addtl Attending Provider Instructions: Mr Camejo, You were treated for Urinary Tract Infection and sepsis with IV antibiotics and supportive care. Your symptoms improved while hospitalized. On the morning of 07/01/22 you had a possible "TIA" with slurred speech and questionable left facial droop. You were seen by neurology and fortunately your MRI of the brain did not show a stroke. We performed CT scans of the blood vessels of the head & neck and these did not show major blockages. Your echocardiogram showed good heart function and no blood clots. Neurology recommended a 30-day heart monitor at home to ensure you don't have a heart rhythm called "a.fib" which can lead to TIA and stroke events. The heart monitor will be mailed to your home for you. You were seen by speech therapy who have recommended outpatient speech therapy as well as a visit with ENT. Speech wants to be sure that your prior radiation treatments years ago didn't affect your throat/voicebox region. Finally, we discovered that you have severe vitamin B12 deficiency. This can contribute to, or cause directly, neuropathy in your legs. Supplementation is needed. Recommendations - 1. cefdinir antibiotic - 300mg twice daily for 7 additional days. First dose TONIGHT. This is for your urinary tract infection. Your PSA blood test returned very low making prostate infection very unlikely. 2. again the 30-day heart monitor will be mailed to your home with instructions on its use. 3. we have set up home PT/OT/speech for you. 4. take qfuc-pma-fptasmb vitamin B12 1000mcg daily. Take this for a total of [address] scan of the abdomen showed a moderate-large amount of constipation. I do believe that constipation & neurogenic bowel are contributing to your abdominal distension. You may need to increase your senna to 2 tabs daily AND take udxv-kxs-iibdude miralax once or twice daily. Titrate / adjust these 2 medications in order to have a soft bowel movement about every 2 days. Follow-up - see separate section Return to [facility] if - * you have fevers over 100 degrees * you have shortness of breath or chest pain * you develop severe diarrhea * any other concerns It was our pleasure to care for you at [facility]! Dr Darrel Rodriguez [employer] Spotter Provider Instructions: Risk Factors for Stroke and TIA: You can reduce your chances of stroke by working with your medical provider to adopt a healthy lifestyle. Some specific ways to lower your chance of stroke are: * If you are a smoker, now is the time to stop smoking cigarettes * If you are diabetic, improve the control of your blood sugars * Avoid excessive amounts of alcohol * Control high blood pressure * Lose weight if you are overweight * Be sure to lead an active lifestyle * Eat a healthy diet low in salt, cholesterol and fat You should know about other risk factors for stroke that you are unable to control. These include: * Age 55 years or older * Male gender * Certain racial groups: , or / * Family History of Stroke, Mini stroke or Heart Attack * Sickle Cell Disease Follow Up: It is important for you to keep your follow up appointments with your medical provider. Who to Call and When: Medical Emergencies: Call 911 immediately if you experience any of the following warning signs and symptoms of Stroke: * Sudden numbness or weakness of the face, arm or leg, especially on one side of the body * Sudden confusion, trouble speaking or understanding * Sudden trouble seeing in one or both eyes * Sudden trouble walking, dizziness, loss of balance or coordination * Sudden severe headache with no cause Do not delay calling 911 if you experience any warning signs or symptoms of a stroke. Delay in seeking medical attention may affect what treatments can be given to you. . Pending Studies at Discharge: No Stand-Alone Forms: My [facility], Smoking Cessation Medications and DC Order Prescriptions: New cefdinir 300 mg Capsule 300 mg PO BID 7 Days Qty: 14 0RF Rx Instructions: first dose PM of 07/03/22 cyanocobalamin (vitamin B-12) 1,000 mcg capsule 1,000 mcg PO DAILY Qty: 90 3RF Rx Instructions: purchase [id number] Continued (DME) Mattress (Air or other) Misc See Rx Instructions .Route Qty: 1 0RF Rx Instructions: alternating pressure mattress metoprolol succinate 50 mg tablet extended release 24 hr 50 mg PO DAILY Qty: 90 3RF gabapentin 300 mg capsule 300 mg PO TID Qty: 180 1RF atorvastatin 80 mg tablet 80 mg PO QAM Qty: 90 1RF metformin 1,000 mg tablet 1,000 mg PO BID Qty: 180 1RF allopurinol 300 mg tablet 300 mg PO QAM Qty: 90 1RF omeprazole 20 mg capsule,delayed release(DR/EC) 20 mg PO QAM Qty: 90 1RF lisinopril 5 mg tablet 5 mg PO DAILY Qty: 90 3RF famotidine 40 mg tablet 40 mg PO HS Qty: 90 1RF levothyroxine 137 mcg tablet 137 mcg PO DAILY Qty: 90 1RF tamsulosin 0.4 mg capsule 0.4 mg PO HS Qty: 90 1RF clopidogrel 75 mg tablet 75 mg PO DAILY Qty: 90 1RF glimepiride 2 mg tablet 2 mg PO QAM Qty: 90 1RF cetirizine 10 mg tablet 10 mg PO QAM PRN (Reason: Seasonal Allergies) Qty: 90 1RF (DME) diaper,brief,adult,disposable Misc See Rx Instructions .ROUTE .MEDSUPPLY Qty: 126 3RF Rx Instructions: As directed alex 8.6 mg capsule 8.6 mg PO DAILY nitroglycerin 0.4 mg tablet, sublingual 0.4 mg sublingual DIRECTED PRN (Reason: Chest Pain) Qty: 30 2RF Rx Instructions: use as needed for chest pain; go to the ER IMMEDIATELY if need to use it once ondansetron HCl 4 mg tablet 4 mg PO Q8H PRN (Reason: Nausea And Vomiting) aspirin 81 mg tablet,delayed release (DR/EC) 81 mg PO QAM acetaminophen [Tylenol Extra Strength] 500 mg Tablet 1,000 mg PO Q6H PRN (Reason: fever/Pain) Saccharomyces boulardii [Probiotic (S.boulardii)] 250 mg Capsule 250 mg PO BID No Action cranberry extract [Cranberry Concentrate] 500 mg capsule 500 mg PO DAILY Rx Instructions: administer with meals Discharge Orders: Discharge Order (Routine); Ordered 07/03/22 Ordered By: Haris Rojo Admission Data Admit Date/Time: 06/28/22 16:57 Attending Provider: Haris Rojo Admit Provider: Annette Matthews Primary Care Provider: Liz Kirby. Other Providers: Annette Matthews ; Berto Joyner. Other Interventions: Discharge Summary Assessment (RN) Last Done: 07/03/22 15:35 Coding Level of Care Code D/C DAY MANAGEMENT >30 MINS Diagnoses Sepsis A41.9 UTI (urinary tract infection) N39.0 B12 deficiency anemia D51.9 Iron deficiency anemia D50.9 Diabetes E11.9 Polyneuropathy G62.9 FRANCIE (acute kidney injury) N17.9 Dysarthria R47.1 CAD, multiple vessel I25.10 Dyslipidemia (high LDL; low HDL) E78.5 Hypertension I10 Chronic systolic CHF (congestive heart failure) I50.22 Acid reflux K21.9 Hypothyroidism E03.9 Hypothyroidism type: unspecified Gout M10.9 Chronicity: chronic Gout etiology: unspecified cause Gout site: unspecified site Cauda equina syndrome G83.4
== END 2022-07-03 17:55 | disposition home health service (06) | DRG 698 ==
LOC: ED 18:57 → 2N 18:57 → SUATTDRO 06-27 00:49 → 2N 06-27 01:46 → SUATTDRO 06-28 16:57 → 1E 07-01 05:55 → 2N 07-01 06:36